=== PATIENT | male | born 1970 | race Caucasian/White ===

== ENCOUNTER 2024-08-22 07:58 | Outpatient (REF) | payer BC, SELFPAY ==
--- OUTSIDE RECORDS SUMMARY | 2024-08-22 08:03 | XMS_ITS | Clinical Summary ---
Author Organization [facility] Address [phone] [facility] [place] [address] Care Team Providers Care Forest Pathologist Name Role Phone Orin Joshi NP Primary Care Provider [phone] Allergies No known active allergies Medications Medication Sig Dispensed Refills Start Date End Date Status simvastatin (ZOCOR) 20 MG tablet Take 20 mg by mouth nightly. Active metformin HCl (METFORMIN ORAL) Take 500 tablets by mouth 2 (two) times a day. Active lisinopril (PRINIVIL,ZESTRIL) 10 MG tablet Take 10 mg by mouth daily. Active omega 7-yee-jmu-fish oil 1,000 mg (120 mg-180 mg) Cap Take 1 capsule by mouth daily. Active multivitamins Chew Take 1 tablet by mouth daily. Active metFORMIN (GLUCOPHAGE) 500 MG tablet Take 500 mg by mouth once. Active Social History Tobacco Use Types Packs/Day Years Used Date Smoking Tobacco: Never Smokeless Tobacco: Never Alcohol Use Standard Drinks/Week Comments Yes 0 (1 standard drink = 0.6 oz pur e alcohol) 5 daysa week Education Answer Date Recorded Are you interested in more education? Not on alexis e 11/17/2022 Are you concerned about learning? Not on file 11/17/2022 No 11/17/2022 No 11/17/2022 Digital Access Answer Date Recorded No 12/16/2022 No 12/16/2022 No 12/16/2022 Reliable internet access at home? Not on file 12/16/2022 Device with a working camera? Not on file Sex and Gender Information Value Date Recorded Sex Assigned at Not on file Gender Identity Not on file Sexual Orientation Not on file Last Filed Vital Signs Vital Sign Reading Time Taken Comments Blood Pressure 119/69 02/04/2018 2:00 PM EDT Pulse 81 02/04/2018 1:15 PM EDT Temperature 36.7 ??C (98.1 ??F) 02/04/2018 2:00 PM ED T Respiratory Rate 22 02/04/2018 1:15 PM EDT Oxygen Saturation 97% 02/04/2018 2:00 PM EDT Inhaled Oxygen Concentration - - Weight 83.9 kg (185 lb) 01/31/2018 10:30 AM EDT Height 172.7 cm (5' 8 ) 01/31/2018 10:30 AM EDT Body Mass Index 28.13 01/31/2018 10:30 AM EDT Plan of Treatment Health Maintenance Due Date Last Done Comments CREATININE LEVEL 1968 LIPID PANEL 1968 POTASSIUM LEVEL 1968 DEPRESSION SCREENING 1980 HEPATITIS B SCREENING 01/28/1986 HEPATITIS C SCREENING 01/28/1986 HIV ONE-TIME SCREENING (18-6 5 YEARS) 01/28/1986 HEPATITIS B VACCINES (1 of 3 - 19+ 3-dose series) 01/28/1987 SMOKING STATUS SCREENING (On ce After 26 Yrs) 01/28/1994 COLOGUARD 01/28/2013 COLONOSCOPY 01/28/2013 COLORECTAL CANCER SCREENING 01/28/2013 FIT TEST 01/28/2013 FOBT 01/28/2013 SIGMOIDOSCOPY 01/28/2013 VIRTUAL COLONOSCOPY 01/28/2013 Adult Td,Tdap Booster 09/07/2016 09/07/2006 PNEUMOCOCCAL VACCINES (50+ years) (2 of 2 - PCV) 01/28/2018 06/09/2009 ZOSTER VACCINES (1 of 2) 01/28/2018 INFLUENZA VACCINE (#1) 2024 COVID-19 VACCINE (3 - 2023-2 5 season) 2024 11/11/2020, 10/21/2020 HEPATITIS A VACCINES Aged Out No long er eligible based on patient's age to complete this topic HIB VACCINES Aged Out No longer eligi ble based on patient's age to complete this topic MENINGOCOCCAL VACCINES (ACWY) Aged Out No longer eligible based on patient's age to complete this topic Medical Devices Not on file Care Teams Forest Pathologist Relationship Specialty Start Date End Date Orin Joshi NP [address] [place] [id number] PCP - General 11/26/20 Additional Source Comments The information contained in this document represents components of the legal health record. It is not the complete legal health record.[facility]
--- OUTSIDE RECORDS SUMMARY | 2024-08-22 08:03 | XMS_ITS | Data Portability ---
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 Assessment Encounter Date Assessment Date Assessment LastModified by Organization Details LastModified Time 11/10/2022 11/10/2022 After a discussion of treatment options, which included consideration of best practices and patient preferences, the following treatment plan and objectives were adopted: [email or web address] Not available 11/10/2022 09:03:20 05/10/2023 05/10/2023 After a discussion of treatment options, which included consideration of best practices and patient preferences, the following treatment plan and objectives were adopted: [email or web address] Not available 05/10/2023 20:52:03 11/13/2023 11/13/2023 After a discussion of treatment options, which included consideration of best practices and patient preferences, the following treatment plan and objectives were adopted: pkeough Not available 11/13/2023 10:04:23 05/15/2024 05/15/2024 After a discussion of treatment options, which included consideration of best practices and patient preferences, the following treatment plan and objectives were adopted: pkeough Not available 05/15/2024 08:58:06 Plan of Treatment Reminders Order Date Submit Date Provider Last Modified By Organization Details Last Modified Time Details Appointments LAB Follow-Up 2024 07:30A M [facility] Not available Not available Not available Wellness Visit 30 05/21/ 2025 09:15A M Aydee Clarke, 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 Surgeries None recorded. Imaging XR, ribs, unilatera l - eval for fractured ribs, s/p fall on stone wall on L side 2023 024 [facility] (Im[facility]), [address] , [place], [address], 11/02/2023 10:18:03 Medication Orders sildenafi l 50 mg tablet 2022 023 [email or web address] [id number], [address] [place], [address], 11/13/2023 09:54:42 ibuprofen 800 mg tablet 2023 024 [id number], [address] [place], [address], 11/02/2023 08:27:07 ibuprofen 800 mg tablet 2023 024 pkeough [id number], [address] [place], [address], 11/13/2023 10:26:24 lisinopri l 10 mg tablet 2023 024 [facility], [address] [place], [address], 11/13/2023 10:26:18 simvastat in 20 mg tablet 2023 [id number], [address] [place] [address], [address], 05/15/2024 08:59:23 metformin ER 500 mg tablet,ex tended release 24 hr 2023 024 [id number], [address] [place] [address], [address], 05/15/2024 08:59:23 lisinopri l 10 mg tablet 2023 [id number], [address] [place] [address], [address], 05/15/2024 08:59:22 Patient TargetsNo targets recorded. Patient Instructions Encounter Date Encounter Id Patient Instructions Last Modified By Organization Details Last Modified Time 11/10/2022 [id number] high cholesterol lifestyle changes [email or web address] Not available 11/10/2022 09:18:51 Well Visit 50 to 65: Care Instructions pkeough Not available 11/10/2022 09:18:50 11/13/2023 [id number] high blood pressure: care instructions pkeough Not available 11/13/2023 10:26:16 learning about high blood pressure pkeough Not available 11/13/2023 10:26:16 05/15/2024 [id number] high blood pressure: care instructions pkeough Not available 05/15/2024 08:59:20 learning about high blood pressure pkeough Not available 05/15/2024 08:59:20 Reason for Referral Pump Assembler Referral for Erosion of teeth per dentist as significant erosion of enamel Referring Physician: Aydee Clarke, Family Medicine, Encounter Date: 05/10/2023 Results Created Date Observation Date Name Description Value Unit Range Abnormal Flag Note LastModifiedBy Organization Detail LastModifiedTime 11/03/1911/02/2022 HGB A1C hemoglobin A1C 6.4 % 4.8-6. 0 high Goal: <7% in Patie nts with Diabe arabella An A1c betwe en 5.7-6 .4% is ident ified as pre-d iabet es and sugge sts risk for progr essio n to diabe arabella Two a1c value s of 6.5% or highe r is consi stent with a diagn osis of diabe arabella but may need furth er confi rmati on Not Available [address], [address], 11/02/2022 11:36:14 11/03/19 23 11/02/2022 HGB A1C estimated average glucose 137.0 mg/dL Not Available [address], [address], 11/02/2022 11:36:14 11/03/19 23 11/02/2022 BASIC METAB OLIC PANEL glucose 151 mg/dL 70-100 high Not Available [address], [address], 11/02/2022 15:34:56 11/03/19 23 11/02/2022 BASIC METAB OLIC PANEL BUN 17 mg/dL 7-18 Not Available [address], [address], 11/02/2022 15:34:56 11/03/19 23 11/02/2022 BASIC METAB OLIC PANEL creatinine 1.0 mg/dL 0.8-1. 3 Not Available [address], [address], 11/02/2022 15:34:56 11/03/19 23 11/02/2022 BASIC METAB OLIC PANEL B/C 17.0 ratio Not Available [address], [address], 11/02/2022 15:34:56 11/03/19 23 11/02/2022 BASIC METAB OLIC PANEL GFR >=60ML /MIN mL/mi n normal >=60m L/min - Viki l or midly reduc ed <60mL /min- Decre ased kidne y funct ion <15mL /min - Kidne y failu re [facility] calcu lates estim ated Glome rular Filtr ation Rate (eGFR ) using the Chron ic Kidne y Disea se Epide miolo gy Colla borat ion (CKD- EPI) Equat ion (Rayne r et. al 2020) as recom luis d by the Natio nal Kidne y Found ation . eGFR is based on age, serum creat inine , and sex. CKD-E PI does not calcu late eGFR by race, does not apply to child bakari (age <18 years ), and shoul d not be used in pregn babak. Not Available [address], [address], 11/02/2022 15:34:56 11/03/19 23 11/02/2022 BASIC METAB OLIC PANEL sodium 138 mmol/ L 136-14 5 Not Available [address], [address], 11/02/2022 15:34:56 11/03/19 23 11/02/2022 BASIC METAB OLIC PANEL potassium 4.3 mmol/ L 3.5-5. 1 Not Available [address], [address], 11/02/2022 15:34:56 11/03/19 23 11/02/2022 BASIC METAB OLIC PANEL chloride 102 mmol/ L 96-107 Not Available [address], [address], 11/02/2022 15:34:56 11/03/19 23 11/02/2022 BASIC METAB OLIC PANEL anion gap 9.2 5.0-15 .0 Not Available [address], [address], 11/02/2022 15:34:56 11/03/19 23 11/02/2022 BASIC METAB OLIC PANEL CO2 27 mmol/ L 21-32 Not Available [address], [address], 11/02/2022 15:34:56 11/03/19 23 11/02/2022 BASIC METAB OLIC PANEL calcium 8.9 mg/dL 8.5-10 .3 Not Available [address], [address], 11/02/2022 15:34:56 11/03/19 23 11/02/2022 LIPID PANEL cholesterol 143 mg/dL <200 mg/dl Sudhir able 200-2 39 mg/dl Borde rline High >240 mg/dl High Not Available [address], [address], 11/02/2022 15:34:57 11/03/19 23 11/02/2022 LIPID PANEL triglyceride s 317 mg/dL high <150 mg/dL Viki l 150-1 99 mg/dL Borde rline High 200-4 99 mg/dL High >500 mg/dL Very High Not Available [address], [address], 11/02/2022 15:34:57 11/03/19 23 11/02/2022 LIPID PANEL direct HDL 38 mg/dL <40 mg/dl - Major Risk for CHD >60 mg/dl - Negat berta Risk for CHD Not Available [address], [address], 11/02/2022 15:34:57 11/03/19 23 11/02/2022 DIREC T LDL direct LDL 46 mg/dL RISK CATEG ORY LDL GOAL _ CHD or CHD Risk Equiv alent s <100 mg/dl (10-y ear risk >20%) 2+ Risk Facto rs <130 mg/dl (10-y ear risk <= 20%) 0-1 Risk Facto r? <160 mg/dl ? Almos t all peopl e with 0-1 risk facto r have a 10 year risk <10%, thus 10 year risk asses ment in peopl e with 0-1 risk facto r is not necmeaghan maisha. Not Available [address], [address], 11/02/2022 16:48:05 05/03/2005/03/2023 HGB A1C hemoglobin A1C 7.1 % 4.8-6. 0 high Goal: <7% in Patie nts with Diabe arabella An A1c betwe en 5.7-6 .4% is ident ified as pre-d iabet es and sugge sts risk for progr essio n to diabe arabella Two a1c value s of 6.5% or highe r is consi stent with a diagn osis of diabe arabella but may need furth er confi rmati on Not Available [address], [address], 05/03/2023 12:05:19 05/03/2005/03/2023 HGB A1C estimated average glucose 157.1 mg/dL Not Available [address], [address], 05/03/2023 12:05:19 05/03/2005/03/2023 BASIC METAB OLIC PANEL glucose 173 mg/dL 70-100 high Not Available [address], [address], 05/03/2023 12:12:20 05/03/2005/03/2023 BASIC METAB OLIC PANEL BUN 17 mg/dL 7-18 Not Available [address], [address], 05/03/2023 12:12:20 05/03/2005/03/2023 BASIC METAB OLIC PANEL creatinine 1.0 mg/dL 0.8-1. 3 Not Available [address], [address], 05/03/2023 12:12:20 05/03/2005/03/2023 BASIC METAB OLIC PANEL B/C 17.0 ratio Not Available [address], [address], 05/03/2023 12:12:20 05/03/2005/03/2023 BASIC METAB OLIC PANEL GFR >=60ML /MIN mL/mi n normal >=60m L/min - Viki l or midly reduc ed <60mL /min- Decre ased kidne y funct ion <15mL /min - Kidne y failu re [facility] calcu lates estim ated Glome rular Filtr ation Rate (eGFR ) using the Chron ic Kidne y Disea se Epide miolo gy Colla borat ion (CKD- EPI) Equat ion (Inke r et. al 2020) as recom luis d by the Natio nal Kidne y Found ation . eGFR is based on age, serum creat inine , and sex. CKD-E PI does not calcu late eGFR by race, does not apply to child bakari (age <18 years ), and shoul d not be used in pregn babak. Not Available [address], [address], 05/03/2023 12:12:20 05/03/2005/03/2023 BASIC METAB OLIC PANEL sodium 138 mmol/ L 136-14 5 Not Available [address], [address], 05/03/2023 12:12:20 05/03/2005/03/2023 BASIC METAB OLIC PANEL potassium 4.2 mmol/ L 3.5-5. 1 Not Available [address], [address], 05/03/2023 12:12:20 05/03/2005/03/2023 BASIC METAB OLIC PANEL chloride 102 mmol/ L 96-107 Not Available [address], [address], 05/03/2023 12:12:20 05/03/2005/03/2023 BASIC METAB OLIC PANEL anion gap 11.9 5.0-15 .0 Not Available [address], [address], 05/03/2023 12:12:20 05/03/2005/03/2023 BASIC METAB OLIC PANEL CO2 24 mmol/ L 21-32 Not Available [address], [address], 05/03/2023 12:12:20 05/03/20 23 05/03/2023 BASIC METAB OLIC PANEL calcium 9.0 mg/dL 8.5-10 .3 Not Available [address], [address], 05/03/2023 12:12:20 05/03/2005/03/2023 LIPID PANEL cholesterol 148 mg/dL <200 mg/dl Sudhir able 200-2 39 mg/dl Borde rline High >240 mg/dl High Not Available [address], [address], 05/03/2023 12:12:21 05/03/2005/03/2023 LIPID PANEL triglyceride s 323 mg/dL high <150 mg/dL Viki l 150-1 99 mg/dL Borde rline High 200-4 99 mg/dL High >500 mg/dL Very High Not Available [address], [address], 05/03/2023 12:12:21 05/03/2005/03/2023 LIPID PANEL direct HDL 42 mg/dL <40 mg/dl - Major Risk for CHD >60 mg/dl - Negat berta Risk for CHD Not Available [address], [address], 05/03/2023 12:12:21 05/03/20 23 05/03/2023 DIREC T LDL direct LDL 48 mg/dL RISK CATEG ORY LDL GOAL _ CHD or CHD Risk Equiv alent s <100 mg/dl (10-y ear risk >20%) 2+ Risk Facto rs <130 mg/dl (10-y ear risk <= 20%) 0-1 Risk Facto r? <160 mg/dl ? Almos t all peopl e with 0-1 risk facto r have a 10 year risk <10%, thus 10 year risk asses ment in peopl e with 0-1 risk facto r is not terrimeaghan ferrera. Not Available [address], [address], 05/03/2023 14:38:05 05/03/20 23 05/03/2023 MICRO ALBUM IN/CR EATIN INE RATIO PANEL , URINE microalbumin 8.0 mg/L 1.3-20 .0 Not Available [address], [address], 05/03/2023 15:48:25 05/03/20 23 05/03/2023 MICRO ALBUM IN/CR EATIN INE RATIO PANEL , URINE creatinine urine 139.3 mg/dL 30.0-1 25.0 high Not Available [address], [address], 05/03/2023 15:48:25 05/03/20 23 05/03/2023 MICRO ALBUM IN/CR EATIN INE RATIO PANEL , URINE microalb/cre at ratio 5.7 mg/g_ creat 0.0-29 .0 Not Available [address], [address], 05/03/2023 15:48:25 08/09/19 24 08/09/2023 BASIC METAB OLIC PANEL glucose 168 mg/dL 70-100 high Not Available [address], [address], 08/09/2023 10:55:05 08/09/19 24 08/09/2023 BASIC METAB OLIC PANEL BUN 17 mg/dL 7-18 Not Available [address], [address], 08/09/2023 10:55:05 08/09/19 24 08/09/2023 BASIC METAB OLIC PANEL creatinine 1.1 mg/dL 0.8-1. 3 Not Available [address], [address], 08/09/2023 10:55:05 08/09/19 24 08/09/2023 BASIC METAB OLIC PANEL B/C 15.5 ratio Not Available [address], [address], 08/09/2023 10:55:05 08/09/19 24 08/09/2023 BASIC METAB OLIC PANEL GFR >=60ML /MIN mL/mi n normal >=60m L/min - Viki l or midly reduc ed <60mL /min- Decre ased kidne y funct ion <15mL /min - Kidne y failu re [facility] calcu lates estim ated Glome rular Filtr ation Rate (eGFR ) using the Chron ic Kidne y Disea se Epide miolo gy Colla borat ion (CKD- EPI) Equat ion (Rayne r et. al 2020) as recom luis d by the Natio nal Kidne y Found ation . eGFR is based on age, serum creat inine , and sex. CKD-E PI does not calcu late eGFR by race, does not apply to child bakari (age <18 years ), and shoul d not be used in pregn babak. Not Available [address], [address], 08/09/2023 10:55:05 08/09/19 24 08/09/2023 BASIC METAB OLIC PANEL sodium 139 mmol/ L 136-14 5 Not Available [address], [address], 08/09/2023 10:55:05 08/09/19 24 08/09/2023 BASIC METAB OLIC PANEL potassium 4.3 mmol/ L 3.5-5. 1 Not Available [address], [address], 08/09/2023 10:55:05 08/09/19 24 08/09/2023 BASIC METAB OLIC PANEL chloride 102 mmol/ L 96-107 Not Available [address], [address], 08/09/2023 10:55:05 08/09/19 24 08/09/2023 BASIC METAB OLIC PANEL anion gap 10.8 5.0-15 .0 Not Available [address], [address], 08/09/2023 10:55:05 08/09/19 24 08/09/2023 BASIC METAB OLIC PANEL CO2 26 mmol/ L 21-32 Not Available [address], [address], 08/09/2023 10:55:05 08/09/19 24 08/09/2023 BASIC METAB OLIC PANEL calcium 8.9 mg/dL 8.5-10 .3 Not Available [address], [address], 08/09/2023 10:55:05 08/09/19 24 08/09/2023 HGB A1C hemoglobin A1C 7.1 % 4.8-6. 0 high Goal: <7% in Patie nts with Diabe arabella An A1c betwe en 5.7-6 .4% is ident ified as pre-d iabet es and sugge sts risk for progr essio n to diabe arabella Two a1c value s of 6.5% or highe r is consi stent with a diagn osis of diabe arabella but may need furth er confi rmati on Not Available [address], [address], 08/09/2023 10:57:32 08/09/19 24 08/09/2023 HGB A1C estimated average glucose 157.1 mg/dL Not Available [address], [address], 08/09/2023 10:57:32 10/25/19 24 10/25/2023 HGB A1C hemoglobin A1C 6.5 % 4.8-6. 0 high Goal: <7% in Patie nts with Diabe arabella An A1c betwe en 5.7-6 .4% is ident ified as pre-d iabet es and sugge sts risk for progr essio n to diabe arabella Two a1c value s of 6.5% or highe r is consi stent with a diagn osis of diabe arabella but may need furth er confi rmati on Not Available [address], [address], 10/25/2023 11:15:39 10/25/19 24 10/25/2023 HGB A1C estimated average glucose 139.9 mg/dL Not Available [address], [address], 10/25/2023 11:15:39 10/25/19 24 10/25/2023 BASIC METAB OLIC PANEL glucose 149 mg/dL 70-100 high Not Available [address], [address], 10/25/2023 16:27:42 10/25/19 24 10/25/2023 BASIC METAB OLIC PANEL BUN 21 mg/dL 7-18 high Not Available [address], [address], 10/25/2023 16:27:42 10/25/19 24 10/25/2023 BASIC METAB OLIC PANEL creatinine 1.0 mg/dL 0.8-1. 3 Not Available [address], [address], 10/25/2023 16:27:42 10/25/19 24 10/25/2023 BASIC METAB OLIC PANEL B/C 21.0 ratio Not Available [address], [address], 10/25/2023 16:27:42 10/25/19 24 10/25/2023 BASIC METAB OLIC PANEL GFR >=60ML /MIN mL/mi n normal >=60m L/min - Viki l or midly reduc ed <60mL /min- Decre ased kidne y funct ion <15mL /min - Kidne y failu re [facility] calcu lates estim ated Glome rular Filtr ation Rate (eGFR ) using the Chron ic Kidne y Disea se Epide miolo gy Colla borat ion (CKD- EPI) Equat ion (Rayne r et. al 2020) as recom luis d by the Natio nal Kidne y Found ation . eGFR is based on age, serum creat inine , and sex. CKD-E PI does not calcu late eGFR by race, does not apply to child bakari (age <18 years ), and shoul d not be used in pregn babak. Not Available [address], [address], 10/25/2023 16:27:42 10/25/19 24 10/25/2023 BASIC METAB OLIC PANEL sodium 139 mmol/ L 136-14 5 Not Available [address], [address], 10/25/2023 16:27:42 10/25/19 24 10/25/2023 BASIC METAB OLIC PANEL potassium 4.4 mmol/ L 3.5-5. 1 Not Available [address], [address], 10/25/2023 16:27:42 10/25/19 24 10/25/2023 BASIC METAB OLIC PANEL chloride 101 mmol/ L 96-107 Not Available [address], [address], 10/25/2023 16:27:42 10/25/19 24 10/25/2023 BASIC METAB OLIC PANEL anion gap 12.9 5.0-15 .0 Not Available [address], [address], 10/25/2023 16:27:42 10/25/19 24 10/25/2023 BASIC METAB OLIC PANEL CO2 25 mmol/ L 21-32 Not Available [address], [address], 10/25/2023 16:27:42 10/25/19 24 10/25/2023 BASIC METAB OLIC PANEL calcium 9.1 mg/dL 8.5-10 .3 Not Available [address], [address], 10/25/2023 16:27:42 10/25/19 24 10/25/2023 LIPID PANEL cholesterol 113 mg/dL <200 mg/dl Sudhir able 200-2 39 mg/dl Borde rline High >240 mg/dl High Not Available [address], [address], 10/25/2023 16:27:43 10/25/19 24 10/25/2023 LIPID PANEL triglyceride s 205 mg/dL <150 mg/dL Viki l 150-1 99 mg/dL Borde rline High 200-4 99 mg/dL High >500 mg/dL Very High Not Available [address], [address], 10/25/2023 16:27:43 10/25/19 24 10/25/2023 LIPID PANEL direct HDL 42 mg/dL <40 mg/dl - Major Risk for CHD >60 mg/dl - Negat berta Risk for CHD Not Available [address], [address], 10/25/2023 16:27:43 10/25/19 24 10/25/2023 LDL - CALCU LATED LDL - calculated 30.0 RISK CATEG ORY LDL GOAL _ CHD or CHD Risk Equiv alent s <100 mg/dl (10-y ear risk >20%) 2+ Risk Facto rs <130 mg/dl (10-y ear risk <= 20%) 0-1 Risk Facto r? <160 mg/dl ? Almos t all peopl e with 0-1 risk facto r have a 10 year risk <10%, thus 10 year risk asses ment in peopl e with 0-1 risk facto r is not jose reddingy. Not Available [address], [address], 10/25/2023 16:27:44 10/25/19 24 10/26/2023 IMMUN OGLOB ULIN A immunoglobul in A 125 mg/dL 47-310 normal Not Available [facility] [address], [address], 10/26/2023 16:02:40 10/25/19 24 10/26/2023 TISSU E TRANS GLUTA SANDRINE E AB, IGA tissue transglutami nase Ab, IgA <1.0 U/mL normal Value Inter preta tion ----- ----- ----- ---- <15.0 Antib tobias not detec audelia > or = 15.0 Antib tobias detec audelia Not Available [facility] [address], [place], [address], 10/26/2023 16:02:41 01/02/20 24 01/02/2024 POC GLU POC glu 179 70 - 100 high Not Available [facility] [address] [place] [address], [address], 01/04/2024 09:10:15 05/08/20 24 05/08/2024 HGB A1C hemoglobin A1C 6.9 % 4.8-6. 0 high Goal: <7% in Patie nts with Diabe arabella An A1c betwe en 5.7-6 .4% is ident ified as pre-d iabet es and sugge sts risk for progr essio n to diabe arabella Two a1c value s of 6.5% or highe r is consi stent with a diagn osis of diabe arabella but may need furth er confi rmati on Not Available [address], [address], 05/08/2024 11:51:31 05/08/20 24 05/08/2024 HGB A1C estimated average glucose 151.3 mg/dL Not Available [address], [address], 05/08/2024 11:51:31 05/08/20 24 05/08/2024 MICRO ALBUM IN/CR EATIN INE RATIO PANEL , URINE microalbumin 21.0 mg/L 1.3-20 .0 high Not Available [address], [address], 05/08/2024 14:38:50 05/08/2005/08/2024 MICRO ALBUM IN/CR EATIN INE RATIO PANEL , URINE creatinine urine 121.7 mg/dL 30.0-1 25.0 Not Available [address], [address], 05/08/2024 14:38:50 05/08/20 24 05/08/2024 MICRO ALBUM IN/CR EATIN INE RATIO PANEL , URINE microalb/cre at ratio 17.3 mg/g_ creat 0.0-29 .0 Not Available [address], [address], 05/08/2024 14:38:50 05/08/20 24 05/09/2024 BASIC METAB OLIC PANEL glucose 182 mg/dL 70-100 high Not Available [address], [address], 05/09/2024 15:14:00 05/08/20 24 05/09/2024 BASIC METAB OLIC PANEL BUN 15 mg/dL 7-18 Not Available [address], [address], 05/09/2024 15:14:00 05/08/20 24 05/09/2024 BASIC METAB OLIC PANEL creatinine 1.1 mg/dL 0.8-1. 3 Not Available [address], [address], 05/09/2024 15:14:00 05/08/2005/09/2024 BASIC METAB OLIC PANEL B/C 13.6 ratio Not Available [address], [address], 05/09/2024 15:14:00 05/08/2005/09/2024 BASIC METAB OLIC PANEL GFR >=60ML /MIN mL/mi n normal >=60m L/min - Viki l or midly reduc ed <60mL /min- Decre ased kidne y funct ion <15mL /min - Kidne y failu re [facility] calcu lates estim ated Glome rular Filtr ation Rate (eGFR ) using the Chron ic Kidne y Disea se Epide miolo gy Colla borat ion (CKD- EPI) Equat ion (Rayne r et. al 2020) as recom luis d by the Natio nal Kidne y Found ation . eGFR is based on age, serum creat inine , and sex. CKD-E PI does not calcu late eGFR by race, does not apply to child bakari (age <18 years ), and shoul d not be used in pregn babak. Not Available [address], [address], 05/09/2024 15:14:00 05/08/20 24 05/09/2024 BASIC METAB OLIC PANEL sodium 140 mmol/ L 136-14 5 Not Available [address], [address], 05/09/2024 15:14:00 05/08/20 24 05/09/2024 BASIC METAB OLIC PANEL potassium 4.9 mmol/ L 3.5-5. 1 Not Available [address], [address], 05/09/2024 15:14:00 05/08/20 24 05/09/2024 BASIC METAB OLIC PANEL chloride 101 mmol/ L 96-107 Not Available [address], [address], 05/09/2024 15:14:00 05/08/20 24 05/09/2024 BASIC METAB OLIC PANEL anion gap 9.0 5.0-15 .0 Not Available [address], [address], 05/09/2024 15:14:00 05/08/20 24 05/09/2024 BASIC METAB OLIC PANEL CO2 30 mmol/ L 21-32 Not Available [address], [address], 05/09/2024 15:14:00 05/08/20 24 05/09/2024 BASIC METAB OLIC PANEL calcium 9.5 mg/dL 8.5-10 .3 Not Available [address], [address], 05/09/2024 15:14:00 11/02/19 24 11/02/2023 XR, ribs, unila teral CLINIC AL HISTOR Y: Left-s ided chest wall pain after a fall. Histor y of old fractu res. TECHNI QUE: At least 3 views of the left ribs are obtain ed. 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 There are fractu re along the latera l aspect of the left sevent h, eighth and ninth ribs. There are fractu re of along the veneer slicing machine operator ior and beata latera l aspect s of the left 10th rib. There is a fractu re of the latera l aspect of the left 11th rib. The ninth, 10th and 11th rib fractu res appear to be new from 2020 though their age is diffic ult to ascert ain from the plain radiog raph due to superi mposed struct ures. There is no visibl e pneumo thorax or effusi on. IMPRES ANDRA: Kaz us old rib fractu res. Interv al develo pment of left ninth, 10th and 11th rib fractu res which are diffic ult to date with confid ence. Clinic al correl ation recomm ended. Vinh everett Physic ana: Heladio Ibrahim ms [facility] (Im[facility]) [address] , [place], [address], 11/13/2023 10:06:59 Result Notes None recorded. Problems Name Problem SNOMED Code Status Onset Date Resolution Date Notes Provider Name and Address Organization Details Recorded Time Benign essential hypertensi on 5745576 Active Not Available [facility] 2 09:32:40 Neuropathy due to diabetes mellitus 859265833 Active Not Available [facility] 2 09:[facility]:40 Alcohol dependence 45338229 Active 2015 Not Available [facility] 2 09:32:40 Amputated toe 342464698 Active 2018 Not Available [facility] 2 09:32:40 Obesity 599848683 Active 2021 Aydee Clarke NP [address] [place] [address], [id number] , [facility] 2 09:06:14 Basal cell carcinoma of skin 234641076 Active 2021 Bina Chopra NP [address] [place] [address], [phone] , [facility] 2 08:37:19 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 240742303 Active 2021 Aydee Clarke NP 18 [place] [address], [phone] , [facility] 10:05:16 Mixed hyperlipid emia [id number] Active 2006 Not Available [facility] 2 09:32:40 Injury of finger 34766045 Completed 200003/01/2012 Aydee Clarke NP [address] [place] [address], [phone] , [facility] 10:22:10 Testicular hypofuncti on 792156471 Completed 200603/01/2012 Aydee Clarke NP [address] [place], [address] , [facility] 10:22:10 Essential hypertensi on 08260575 Completed 200003/01/2012 Aydee Clarke NP [address] [place] [address], [phone] , [facility] 10:22:10 Diabetes mellitus 60394410 Completed 02/26/2014 Aydee Clarke NP [address] [place], [address] , [facility] 10:22:10 Type 2 diabetes mellitus without complicati on 600160668 Active 2006 Not Available [facility] 2 09:32:40 Insect bite to trunk - nonvenomou s 430113531 Completed 03/01/2012 Aydee Clarke NP [address] [place] [address], , [facility] 10:22:10 Benign essential hypertensi on 1159283 Completed 200603/01/2012 Aydee Clarke NP [address] [place] [address], [phone] , [facility] 10:22:10 Atrial fibrillati on 55983283 Completed 03/01/2012 Aydee Clarke NP [address] [place] [address], [phone] , [facility] 10:22:10 Morbid obesity 642441904 Completed 200603/01/2012 Aydee Clarke NP [address] [place] [address], [phone] , [facility] 10:22:10 Open angle with borderline findings Active 2006 Not Available [facility] 2 09:32:40 Disorder of peripheral autonomic nervous system 453520245 Completed 03/01/2012 Aydee Clarke NP [address] [place], [address] , [facility] 10:22:10 Disorder of nervous system due to type 2 diabetes mellitus 352134014 Completed 200603/01/2012 Aydee Clarke NP [address] [place] [address], [address] , [facility] 10:22:10 Malaise and fatigue 104823578 Completed 200603/01/2012 Aydee Clarke NP [address] [place] [address], [phone] , [facility] 10:22:10 Problem Notes None recorded. Procedures Surgical History Date Name Laterality Status Provider Name and Address Organization Details Recorded Time 2 Obesity counseling completed Aydee Clarke NP [address] [place] [address], [phone], [facility] 11/03/2021 09:05:56 2 prevention-card iovascular risk reduction counseling completed Aydee Clarke NP [address] [place] [address], [phone], [facility] 11/03/2021 09:05:36 1 Katiana - Colonoscopy completed Mynor Saab MD [address] [place] [address], [phone], [facility] 11/26/2020 07:46:53 1 prevention-card iovascular risk reduction counseling completed Esther Melendez [facility] 10/28/2020 07:54:46 1 prevention-vianey al alcohol misuse screening completed Esther Melendez [facility] 10/28/2020 07:54:46 0 prevention-card iovascular risk reduction counseling completed Esther Melendez [facility] 05/13/2020 10:57:32 0 prevention-vianey al alcohol misuse screening completed Esther Melendez [facility] 05/13/2020 10:57:32 5 Destruction of skin lesion completed Montana Foreman III, MD [address] [place] [address], [phone], [facility] 01/05/2015 10:59:27 Imaging Results Imaging Date Name Status LastModified by [facility] Details LastModified Time 11/02/2023 XR, ribs, unilateral completed [facility] (Imaging) [address], [place], [address], 11/13/2023 10:06:59 Procedure Notes None recorded. Medical Equipment None Reported. Allergies No known drug allergies Medications Name Sig Start Date Stop Date Status Note LastModified by Organization Details LastModified Time fish oil 1000mg capsule TAKE 2 CAPSULES BY MOUTH 2 TIMES A DAY DIRECTED 09/06 completed Not Available Not Available Not Available simvastat in 20 mg tabs 05/13 completed Not Available Not Available Not Available cyclobenz aprine hydrochlo ride 10 mg tabs 05/13 completed Not Available Not Available Not Available metformin hydrochlo ride er 500 mg tb24 05/13 completed Not Available Not Available Not Available lisinopri l 10 mg tabs 05/13 completed Not Available Not Available Not Available meloxicam 15 mg tabs 05/13 completed Not Available Not Available Not Available cyclobenz aprine 10 mg tablet TAKE ONE TABLET BY MOUTH THREE TIMES A DAY NEEDED FOR 14 DAYS 11/10 completed Not Available Not Available Not Available metformin 500 mg tablet TAKE 1 TABLET BY MOUTH EVERY MORNING AND TAKE 1 TABLET BY MOUTH EVERY EVENING active Not Available Not Available No t Available sildenafi l 50 mg tablet Take 1-2 tabs once daily as needed 1 hour before sexual activity ; may be taken up to 4 hours before sexual activity . 11/12 completed Not Available Not Available Not Available glyburide 5 mg tablet TAKE 1 TABLET BY MOUTH TWICE A DAY 02/09 completed pt as stopped taking this pa 02-09-17 KB Not Available Not Available Not Available ibuprofen 800 mg tablet Take 1 tablet 3 times a day by oral route. active Not Available Not Available No t Available glyburide 2.5 mg tablet Take 1 tablet every day by oral route. 2014 active Not Available Not Available Not Avai lable meloxicam 15 mg tablet TAKE 1 TABLET BY MOUTH EVERY DAY FOR 14 DAYS 10/28 completed Not Available Not Available Not Available FreeStyle Lancets 28 gauge USE TO TEST BLOOD SUGAR 2 TIMES A DAY DIRECTED active Not Available Not Available No t Available ceftriaxo ne 1 gram intraveno us solution 1 gm rocephin IM mixed with 1 % lidocain . 2014 active Not Available Not Available Not Avai lable sulfameth oxazole 800 mg-trimet hoprim 160 mg tablet TAKE 1 TABLET(S ) TWICE A DAY BY ORAL ROUTE DIRECTED FOR 5 DAYS. 01/30 completed Not Available Not Available Not Available aspirin 81 mg tablet,de layed release Take 1 tablet every day by oral route as directed . 2018 active Not Available Not Available Not Avai lable tramadol 50 mg tablet Take 1 tablet every 6 hours by oral route as needed. 01/09 completed Not Available Not Available Not Available ceftriaxo ne 1 gram solution for injection Injected 1.0 Gm mixed with 2.1mL of Lidocain e 1% into the LUOQ Buttock 2014 active Not Available Not Available Not Avai lable lancets Take 1 each twice a day by miscell. route. 11/12 completed Not Available Not Available Not Available cephalexi n 500 mg capsule Take 1 capsule 3 times a day by oral route as directed for 7 days. 10/27 completed Not Available Not Available Not Available simvastat in 20 mg tablet TAKE 1 TABLET BY MOUTH EVERY DAY IN THE EVENING active Not Available Not Available No t Available WelChol 625 mg tablet Take 1 tablet twice a day by oral route for 30 days. 2009 active Does not take Not Available Not Available Not Available Cipro 500 mg tablet Take 1 tablet every 12 hours by oral route for 7 days. 02/04 completed Not Available Not Available Not Available lisinopri l 10 mg tablet TAKE 1 TABLET BY MOUTH EVERY DAY active Not Available Not Available No t Available ibuprofen 400 mg tablet TAKE ONE TABLET BY MOUTH EVERY 4 TO 6 HOURS FOR 10 DAYS 11/10 completed Not Available Not Available Not Available mupirocin 2 % topical ointment active Not Available Not Available Not Available metformin ER 500 mg tablet,ex tended release 24 hr TAKE 2 TABLETS TWICE A DAY BY ORAL ROUTE DIRECTED FOR 90 DAYS. active Not Available Not Available No t Available amoxicill in 875 mg-potass ium clavulana te 125 mg tablet TAKE 1 TABLET BY MOUTH TWICE A DAY DIRECTED FOR 10 DAYS 05/15 completed Not Available Not Available Not Available Fish Oil active Not Available Not Avai lable Not Available multivita min active Not Available Not Available Not Available Fish Oil 300 mg-1,000 mg capsule TAKE 2 CAPSULES BY MOUTH 2 TIMES A DAY DIRECTED 09/06 completed Not Available Not Available Not Available Fish Oil 1,000 mg capsule Take 2 capsules twice a day by oral route as directed for 30 days. 10/10 completed Take 1:00 tab. q.d. Not Available Not Available Not Available FreeStyle Lite Meter kit USE TO CHECK BLOOD SUGAR 2 TIMES A DAY DIRECTED active Not Available Not Available No t Available FreeStyle Lite Strips USE TO TEST BLOOD SUGAR 2 TIMES PER DAY DIRECTED active Not Available Not Available No t Available Allergy Alllergy relief OTC. active Not Available Not Available No t Available Plenvu 140 gram-9 gram-5.2 gram powder packs 11/10 completed Not Available Not Available Not Available BinaxNOW COVID-19 Ag Self Test kit USE DIRECTED 11/10 completed Not Available Not Available Not Available Vitals Date Recorded Body height Provider Name an d Address Organization Details Last Updated DateTime 11/10/2022 168.28 cm Adrián Worthington [facility] 11/10/2022 08:49:54 Date Recorded Heart rate Provider Name an d Address Organization Details Last Updated DateTime 11/10/2022 95 /min Adrián Worthington [facility] 11/10/2022 08:50:07 Date Recorded Oxygen saturation Oxygen saturation in Arterial blood by Pulse oximetry Provider Name and Address Organization Details Last Updated DateTime 11/10/2022 97 % 97 % Adrián Worthington [facility] 11/10/2022 08:50:19 Date Recorded Body mass index (BMI) Body weight Provider Name and Address Organization Details Last Updated DateTime 11/10/2022 30 kg/m2 47534.77 g Adrián Worthington [facility] 11/10/2022 08:50:25 Date Recorded Body height Provider Name an d Address Organization Details Last Updated DateTime 05/10/2023 168.28 cm Adrián Worthington [facility] 05/10/2023 09:23:45 Date Recorded Body mass index (BMI) Body weight Provider Name and Address Organization Details Last Updated DateTime 05/10/2023 30.4 kg/m2 89287.55 g Adrián Worthington [facility] 05/10/2023 09:23:49 Date Recorded Heart rate Provider Name an d Address Organization Details Last Updated DateTime 05/10/2023 81 /min Adrián Worthington [facility] 05/10/2023 09:28:53 Date Recorded Body height Provider Name an d Address Organization Details Last Updated DateTime 11/02/2023 168.28 cm Samantha Galindo [facility] 11/02/2023 08:09:54 Date Recorded Body mass index (BMI) Body weight Provider Name and Address Organization Details Last Updated DateTime 11/02/2023 31.8 kg/m2 31875.69 g Samantha Galindo [facility] 11/02/2023 08:11:54 Date Recorded Heart rate Provider Name an d Address Organization Details Last Updated DateTime 11/02/2023 105 /min Samantha Galindo [facility] 11/02/2023 08:15:25 Date Recorded Oxygen saturation Oxygen saturation in Arterial blood by Pulse oximetry Provider Name and Address Organization Details Last Updated DateTime 11/02/2023 99 % 99 % Samantha Galindo [facility] 11/02/2023 08:15:26 Date Recorded Body height Provider Name an d Address Organization Details Last Updated DateTime 11/13/2023 168.28 cm Adrián Worthington [facility] 11/13/2023 09:53:18 Date Recorded Body mass index (BMI) Body weight Provider Name and Address Organization Details Last Updated DateTime 11/13/2023 31.1 kg/m2 71348.92 g Adrián Worthington [facility] 11/13/2023 09:53:49 Date Recorded Oxygen saturation Oxygen saturation in Arterial blood by Pulse oximetry Provider Name and Address Organization Details Last Updated DateTime 11/13/2023 100 % 100 % Adrián Worthington [facility] 11/13/2023 09:55:11 Date Recorded Heart rate Provider Name an d Address Organization Details Last Updated DateTime 11/13/2023 88 /min PHUONG Paul MA [facility] 11/13/2023 09:55:14 Date Recorded Body height Provider Name an d Address Organization Details Last Updated DateTime 05/15/2024 168.28 cm PHUONG Paul MA [facility] 05/15/2024 08:22:37 Date Recorded Body mass index (BMI) Body weight Provider Name and Address Organization Details Last Updated DateTime 05/15/2024 30.1 kg/m2 87959.37 g PHUONG Paul [facility] 05/15/2024 08:22:42 Date Recorded Oxygen saturation Oxygen saturation in Arterial blood by Pulse oximetry Provider Name and Address Organization Details Last Updated DateTime 05/15/2024 97 % 97 % PHUONG Paul [facility] 05/15/2024 08:24:14 Date Recorded Heart rate Provider Name an d Address Organization Details Last Updated DateTime 05/15/2024 77 /min PHUONG Paul MA [facility] 05/15/2024 08:24:24 Date Recorded Systolic blood pressure Diastolic blood pressure Provider Name and Address Organization Details Last Updated DateTime 11/10/2022 116 mm[Hg] 84 mm[Hg] PHUONG Paul [facility] 11/10/2022 08:51:13 Date Recorded Systolic blood pressure Diastolic blood pressure Provider Name and Address Organization Details Last Updated DateTime 05/10/2023 114 mm[Hg] 73 mm[Hg] PHUONG Paul [facility] 05/10/2023 09:28:45 Date Recorded Systolic blood pressure Diastolic blood pressure Provider Name and Address Organization Details Last Updated DateTime 11/02/2023 150 mm[Hg] 82 mm[Hg] Samantha Galindo [facility] 11/02/2023 08:15:04 Date Recorded Systolic blood pressure Diastolic blood pressure Provider Name and Address Organization Details Last Updated DateTime 11/13/2023 125 mm[Hg] 84 mm[Hg] PHUONG Paul [facility] 11/13/2023 09:59:25 Date Recorded Systolic blood pressure Diastolic blood pressure Provider Name and Address Organization Details Last Updated DateTime 11/13/2023 133 mm[Hg] 74 mm[Hg] PHUONG Paul [facility] 11/13/2023 11:24:46 Date Recorded Systolic blood pressure Diastolic blood pressure Provider Name and Address Organization Details Last Updated DateTime 05/15/2024 104 mm[Hg] 62 mm[Hg] PHUONG Paul [facility] 05/15/2024 08:26:48 Social History Question Answer Notes LastModified by Organizat ion Details LastModified Time Tobacco Smoking Status Never Smoker checked kb 05-15-24 PHUONG Paul [facility] 05/15/2024 08:27:56 What Is Your Level Of Alcohol Consumption? Moderate 5 Days A Week- 4 Shot Glasses A Day Vodka -[email or web address]. [email or web address] Information not available 05/15/2024 Do You Wear A Helmet When Biking? Yes Information not available 06/24/2015 What Is Your Level Of Caffeine Consumption? None [email or web address] Information not available 05/13/2020 How Much Tobacco Do You Chew? None Information not available 12/31/2012 What Type Of Diet Are You Following? REGULAR [email or web address] Information not available 06/24/2015 Which Illicit Or Recreational Drugs Have You Used? No Denies IVDU Information not available 01/15/2018 Do You Or Have You Ever Used E-cigarettes Or Vape? Never Used Electronic Cigarettes 10/28/2019 TG [email or web address] Information not available 10/28/2019 Education 4 Year College [email or web address] Information not available 06/08/2011 What Is Your Occupation? [employer] Previously [employer] Information not available 12/01/2015 How Many Days In The Past Year Have You Had A Heavy Drinking Consumption (4+ Female, 5+ Male)? 0 Information not available 12/31/2012 Are There Any Guns Present In Your Home? No Information not available 06/24/2015 Live Alone Or With Others? With Others [email or web address] Information not available 06/08/2011 Does The Patient Have Difficulty Speaking [place] Citizen? No Information not available 02/24/2015 Does The Patient Have Difficulty Reading [place] Citizen? No Information not available 02/24/2015 Patient Has Health Care Proxy Signed And In Chart Yes [email or web address] Information not available 11/14/2022 Marital Status [email or web address] Informatio n not available 03/01/2012 Mosquito Repellent Used Routinely Yes Information not available 01/15/2018 What Was The Date Of Your Most Recent Tobacco Screening? 05/11/2022 05/11/22 CJ [email or web address] Information not available 05/11/2022 How Many Children Do You Have? 0 [email or web address] Information not available 06/08/2011 Seat Belts Used Routinely Yes [email or web address] Information not available 06/24/2015 Smoke Alarm In Home Yes [email or web address] Information not available 06/24/2015 Do You Or Have You Ever Used Smokeless Tobacco? Never Used Smokeless Tobacco 10/28/2019 TG [email or web address] Information not available 10/28/2019 How Much Tobacco Do You Smoke? No 05/11/22 CJ [email or web address] Information not available 05/11/2022 What Types Of Sporting Activities Do You Participate In? No Information not available 01/15/2018 General Stress Level Low Information not available 06/24/2015 Do You Use Sunscreen Routinely? Yes [email or web address] Information not available 06/24/2015 How Many Years Have You Smoked Tobacco? 0 Information not available 10/28/2019 Sex: Male Functional Status None recorded. Mental Status None recorded. Family History Relationship Description Onset Age of this Age Resolved Age Notes LastModified by Organization Details LastModified Time Father Alcoholism [email or web address] Not availabl e 12/01/2015 10:23:38 Brother Asthma 32 acute asthma attack [email or web address] Not available 12/01/2015 10:23:38 Brother Opioid dependence 32 OD in [place] @ [facility] pkeough Not available 12/01/2015 10:23:38 Notes:Father-ETOH abuse when fell and hit head Mother-live but pt not sure problems, 4 siblings (1 sis and 3 bros) does not know about their health, they have different father. Medical History Condition Response Diabetes Type II Y Hypertension Y Immunizations Vaccine Type Date Status Note Provider Name and Address Organization Details Recorded Time Tdap 007 completed Not Available [facility] 06/07/2011 05:21:29 Tdap 007 completed Not Available [facility] 06/07/2011 05:21:29 pneumococcal polysaccharide PPV23 009 completed Not Available [facility] 08/09/2019 02:38:00 Td (adult), 2 Lf tetanus toxoid, preservative free, adsorbed 018 completed Not Available [facility] 08/09/2019 02:22:36 Influenza, split virus, quadrivalent, PF 022 cancelled patient objection Carolina Yanez D.O. [address] [place], [address], [facility] 05/11/2022 11:18:26 Influenza, split virus, quadrivalent, PF 023 cancelled patient objection Nikole Pandya. [address] [place], [address], [facility] 05/13/2023 15:47:02 COVID-19, mRNA, LNP-S, PF, 30 mcg/0.3 mL dose 021 [facility] 14:14:02 COVID-19, mRNA, LNP-S, PF, 30 mcg/0.3 mL dose 021 completed BLAINE Vance, [facility] 06/03/2021 14:14:12 COVID-19, mRNA, LNP-S, PF, 100 mcg/0.5mL dose or 50 mcg/0.25mL dose 022 completed JUAN Alvarez, [facility] 08/22/2021 14:21:46 Past Encounters Encounter ID Performer Location Encounter Start Date Encounter Closed Date Diagnosis/Indication Diagnosis SNOMED-CT Code Diagnosis ICD10 Code Diagnosis Note [id number] [facility] [address] [place] [address] 08/28/2000 11:45:00 08/12/2008 02:02:29 [id number] [facility] OFFICE [address] [place] [address] 09/07/2006 09:25:16 09/07/2006 13:17:47 [id number] LAB - [facility] [address] [place] [address] 09/27/2006 09:47:41 09/27/2006 09:47:45 [id number] Eye Care, [facility] [place] [address] 09/27/2006 10:01:46 09/27/2006 11:52:26 [id number] Eye Care, [facility] [place] [address] 10/15/2006 14:29:42 10/15/2006 17:10:27 [id number] [facility] OFFICE [address] [place] [address] 10/17/2006 08:03:38 10/17/2006 09:08:25 [id number] [facility] [place] OFFICE [address] [place] [address] 01/09/2007 12:05:24 01/09/2007 14:30:41 [id number] [facility] [place] [address] 01/10/2007 07:28:27 01/10/2007 07:28:32 [id number] [facility] [address] [place] [address] 01/11/2007 08:57:27 01/11/2007 08:57:35 [id number] [facility] [place]ICE [address] [place] [address] 02/01/2007 08:12:35 02/01/2007 10:48:02 [id number] [facility] [address] [place] [address] 06/11/2007 07:56:03 06/11/2007 07:56:12 [id number] [facility] [place] [place]ICE [address] [place] [address] 06/25/2007 09:01:34 08/12/2008 02:02:29 [id number] Podiatry, [facility] [address] [place] [address] 07/09/2007 09:05:27 07/10/2007 09:23:03 [id number] [facility] [address] [place] [address] 11/19/2007 10:32:30 11/19/2007 10:32:45 [id number] [facility] OFFICE [address] [place] [address] 05/12/2009 10:30:12 05/13/2009 08:35:[id number] [address] [place] [id number] 06/09/2009 14:41:02 06/10/2009 09:44:59 [id number] Endocrino logy, [facility] [place] [address] 06/23/2009 08:26:26 06/24/2009 09:26:23 [id number] Endocrino logy, [address] [place] [address] 08/19/2009 09:27:35 08/19/2009 14:10:39 [id number] Endocrino logy, [address] [place] [address] 11/18/2009 09:29:15 11/18/2009 10:41:[id number] [facility] [address] [place] [id number] 09/20/2010 12:01:55 09/20/2010 16:23:[id number] [facility] [address] [place] [id number] 06/21/2011 09:53:16 06/21/2011 10:13:[id number] [address] [place] [id number] 01/23/2012 08:10:14 01/23/2012 09:04:[id number] [facility] [address] [place] [id number] 03/01/2012 08:33:47 03/01/2012 09:08:14 [id number] Dorina SEARS [address] [place] [id number] 12/31/2012 11:03:27 01/01/2013 07:35:53 [id number] Jessica Mastrobert i [facility] [address] [place] [id number] 05/19/2013 09:39:48 05/19/2013 09:56:44 Nonvenomous insect bite of multiple sites [id number] Ami SEARS [address] [place] [id number] 08/28/2013 15:02:43 08/28/2013 15:25:22 Benign essential hypertension 0872807 continue to work on diet ,exercisea nd lowering salt intake as discussed Mixed hyperlipidemia 042890887 continue to work on diet and exercise as discussed Adult heal th examination [id number] see Risk Assessment and Lifestyle Change Counseling section above Counseling [id number] Type 2 nora betes mellitus without complication 083345386 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 782857406 Disorder o f nervous system due to type 2 diabetes mellitus 571104774 [id number] Rosi Reyes , [facility] OFFICE [address] [place] [address] 02/26/2014 09:23:19 02/26/2014 09:55:23 Benign essential hypertension 3539065 continue to work on diet ,exercisea nd lowering salt intake as discussed Mixed hyperlipidemia 013344874 continue to work on diet and exercise as discussed Disorder o f nervous system due to type 2 diabetes mellitus 777656577 Foot neuropathy Neoplasm of skin 193784437 [id number] Montana Foreman III, MD , [facility], OFFICE [address] [place] [address] 01/05/2015 10:38:43 01/05/2015 10:57:32 Benign essential hypertension 1925813 continue to work on diet, exercise, and lowering salt intake as discussed Mixed hyperlipidemia 599241032 continue to work on diet and exercise as discussed Cholestero l is at goal Type 2 nora betes mellitus without complication 670559670 Actinic keratosis 816560571 Right shoulder x 2 [id number] JUAN Lewis [facility], OFFICE [address] [place] [address] 02/23/2015 09:02:42 02/23/2015 09:28:05 Paronychia of toe [id number] Diabetes mellitus 25174389 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 [id number] PABLO Sommers, [facility] [place] [address] [place] [address] 02/25/2015 09:28:28 02/25/2015 10:08:25 Paronychia of toe 913029959 Diabetes mellitus 36756593 Cellulitis of toe 52647887 [id number] JUAN Lewis, [facility] [place] [place] [address] [place] [address] 02/26/2015 09:13:35 02/26/2015 09:42:40 Cellulitis of toe 51649933 Paronychia of toe 942918650 Diabetes mellitus 03666334 [id number] Aydee Clarke NP , [facility] [place], OFFICE [address] [place] [address] 03/01/2015 09:16:53 03/01/2015 09:27:47 Cellulitis of toe 45798665 resolving will finish remaining 3 days of Bactrim DS bid. Again reviewed sxs of infection and will rto if they reoccur. [id number] PABLO Sommers, [facility] [place] OFF[place] [address] [place] [address] 06/24/2015 08:26:01 06/24/2015 09:06:08 Type 2 diabetes mellitus without complication 944501104 E11.9 A1C not at goal of <7.0 Up significan tly from December will increase metformin ER to 1000 mg bid will decrease ETOH, sugar drinks repeat labs 3 months- OV Mixed hyperlipidemia 267 820238 E78.2 Trigs are not at goal Will c/w omega fish oil 4000 mg qd will decrease ETOH and sugary drinks Continue to work on diet and exercise as discussed repeat labs 3 months and f/u OV Benign ess ential hypertension 5243378 I10 Blood pressure at goal . continue to work on diet, exercise, and lowering salt intake as discussed Adult heal th examination 081738643 Z00.00 see Risk Assessment and Lifestyle Change Counseling section above HM: Labs UTD Declines flu shot Counseling 299929445 Z71 .9 Alcohol dependence 02811 003 F10.20 discussed reducing ETOH intake discussed impact on blood sugar and triglyceri vi Shoulder pain 79429260 M 25.512 ? impingemen t will try 3-5 days of NSAIDs, alternate heat and ice will call if he reconsider PT Neuropathy due to diabetes mellitus 143887579 E11.40 stable discussed importance of checking feet regularly. [id number] Marcie SEARS, [facility] [place], OFFICE [address] [place] [address] 12/01/2015 09:44:27 12/01/2015 10:33:57 Type 2 diabetes mellitus without complication 181866735 E11.9 A1C at goal of <7.0 at 5.0 will c/w increase metformin 1000 mg bid c/w glyburide 2.5 mg qd discussed working on diet, ETOH reduction will repeat in 3 months to check for stability OV 6 months Mixed hyperlipidemia 267 036045 E78.2 Trigs much improved down from 699 to 158! great job Will c/w omega fish oil 4000 mg qd will decrease ETOH and sugary drinks Continue to work on diet and exercise as discussed repeat labs 3 months and f/u OV 6 months Benign ess ential hypertension 0751007 I10 Blood pressure at goal . 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 Adjustment disorder 1722 6007 F43.23 dealing with loss of 32 brother (OD) as well taking care of Mom [id number] MD RENU Barreto, [facility] [place], OFFICE [address] [place] [address] 01/25/2016 09:18:19 01/25/2016 10:06:23 Infection of toe 743095408 L08.9 in diabetic with neuropathy i informed him that this was a serious infection for him and that we must be observant augmentin for 12 days.he will rto for non response after 48 hrs, or for progressio n or onset fever Neuropathy due to diabetes mellitus 893627392 E11.40 [id number] Aydee Clarke NP , [facility] [place] OFFICE [address] [place] [address] 06/28/2016 09:35:15 06/29/2016 09:39:46 Benign essential hypertension 2716116 I10 BP at goalc/w meds Neuropathy due to diabetes mellitus 674545674 E11.40 abn but stable discussed importance of checking feet regularly. Mixed hyperlipidemia 267 183918 E78.2 Trigs up from 158 to 388will c/w fish oildiscuss ed importance of ETOH reduction Type 2 nora betes mellitus without complication 706003091 E11.9 A1C very good at 5.7will get meter d/t ? of low blood sugarsIf getting lows discussed potentiall y reducing glyburideR F on med today Adult heal th examination 839477577 Z00.00 see Risk Assessment and Lifestyle Change Counseling section aboveHM: declines flu shot Counseling 839290909 Z71 .9 Alcohol dependence 15142 003 F10.20 discussed reducing ETOH intake- has not reduced discussed impact on blood sugar and triglyceri vi lhoping new job (no longer at [employer]) will help reduce [id number] Bina Chopra NP , [facility] [place] OFFICE [address] [place] [address] 10/10/2016 08:00:49 10/12/2016 15:46:30 Injury of ribs 732893779 S29.9XXA Alcohol dependence 64029 003 F10.20 Type 2 nora betes mellitus without complication 247653929 E11.9 [id number] Aydee Clarke NP , [facility] [place] OFFICE [address] [place] [address] 01/09/2017 07:57:33 01/10/2017 09:04:13 Benign essential hypertension 7705460 I10 Blood pressure at goal of <140/90c/w lisinopril BMP utd wnl Mixed hyperlipidemia 267 503752 E78.2 LDL at goal of <100c/w simvastati ncontinue to work on diet and exercise as discussed Type 2 nora betes mellitus without complication 345029887 E11.9 A1C 5.0 with Goal <6.5doing well with more activity d/t jobno med changesmay consider reducing if c/w low A1Crto 6 months for PHA Neuropathy due to diabetes mellitus 820098570 E11.40 abn but stable discussed importance of checking feet regularly. 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 to d/c glyburide and CUT DOWN metformin to 1000 mg once dailywill recheck HbA1c in Jun [id number] Lety SEARS, [facility] [place], [place]ICE [address] [place] [address] 01/15/2018 10:28:34 01/15/2018 11:35:54 Type 2 diabetes mellitus without complication 392043150 E11.9 A1C 5.9 with Goal <6.5doing well with more activity d/t jobno med changesmay consider reducing if c/w low A1Crto 6 months for PHA Alcohol dependence 87869 003 F10.20 stable with slight decrease per pt3-4 drinks 5 x week Benign ess ential hypertension 7558391 I10 Blood pressure at goal of <140/90c/w lisinopril BMP utd wnl Neuropathy due to diabetes mellitus 591483232 E11.40 abn but stable discussed importance of checking feet regularly. Mixed hyperlipidemia 267 786603 E78.2 LDL at goal of <100c/w simvastati ncontinue to work on diet and exercise as discussed Active or passive immunization 930808148 Z23 Diabetic foot ulcer 3710 26125 E11.40 R foot 2nd toe with cellulitis will get xrayget bactrim DS bid x [address] Wang for wound care. [id number] Mitesh Cheng DPM Podiatry, [facility] [address] [facility] [place] [address] 01/30/2018 11:02:26 01/30/2018 14:26:05 Acute osteomyelitis of phalanx of toe 946385664 M86.179 Reviewed right foot xray notable for erosions of distal aspect of distal phalanx. Pt with sausage toe which clinically indicates presence of OM. Reviewed need for partial amputation of right 2nd toe. Reviewed procedure and goal being to remove the infected bone. Informed patient that his toe will be shortened. Will send bone specimen to pathology and micro. Rx for augmentin sent to pharmacy for 10 day course. Will add to sx schedule on Sunday. Pt will be out of work for up to 2 weeks. Informed patient that he will be able to walk in surgical shoes post op day 0. Pain in toe 972400613 M7 9.674 Ulcer of toe 251859040 L 97.999 [id number] Carolina SEARS, [facility] [place] [place]ICE [address] [place] [address] 01/30/2018 15:50:18 01/30/2018 18:24:23 Pre-surgery evaluation 410447920 Z01.818 ekg wnlThe patient is a low risk for perioperat berta cardiovasc ular complicati ons, and may proceed with surgery. Acute oste omyelitis of phalanx of toe 978624163 M86.179 R 2nd toe Benign ess ential hypertension 1083166 I10 Blood pressure at goal of <140/90c/w lisinopril BMP utd wnl Alcohol dependence 89355 003 F10.20 stable with slight decrease per pt3-4 drinks 5 x week [id number] Mitesh Cheng DPM Podiatry, [address] [address] 02/12/2018 10:26:41 02/12/2018 11:12:01 Acute osteomyelitis of phalanx of toe 769286985 M86.179 Reviewed right foot xray notable for erosions of distal aspect of distal phalanx s/p partial amputation of toe. Rx for augmentin sent to pharmacy for 10 day course. Dressing changed. Pain in toe 420232876 M7 9.674 will remove sutures in 1 week. [id number] Mitesh Cheng DPM Podiatry, [address] [address] 02/19/2018 08:51:40 02/19/2018 09:26:45 Acute osteomyelitis of phalanx of toe 441311401 M86.179 Reviewed right foot xray notable for erosions of distal aspect of distal phalanx s/p partial amputation of toe. Pain in toe 724112369 M7 9.674 Sutures removed today. Scab overlying incision removed and site bleeding area identified . Area was cleansed then new dressing was applied to the toe. Pt instructed to take abx to completion . Also to keep toe covered with gauze after daily dressing changes until area is healed up. RTC 2 weeks to re-eval. Ok to return to work tomorrow. [id number] Mitesh Cheng DPM Podiatry, [address] [address] 03/05/2018 08:38:01 03/07/2018 14:19:36 Acute osteomyelitis of phalanx of toe 634806696 M86.179 Reviewed right foot xray notable for erosions of distal aspect of distal phalanx s/p partial amputation of toe. Resolved, patient with clean margins. Pain in toe 074208483 M7 9.674 Right 2nd toe wound all healed up now. Pt ok to get toe wet. Counceled on need for diabetic shoes with custom insoles, as he will need wide width and extra depth shoe to accomodate toe deformitie s. RTC 3 months to re-eval. [id number] Mitesh Cheng DPM Podiatry, [address] [address] 05/07/2018 09:13:31 05/07/2018 09:50:36 Pain in toe 668494447 M79.674 Counseled on need for diabetic shoes with custom insoles, as he will need wide width and extra depth shoe to accomodate toe deformitie s. Orthotics agreement form was completed and signed today. Pt given a copy. We will check with her insurance about coverage. Patient is aware of cost. Cellulitis of toe 877284 04 L03.031 Ulcer of toe 038901989 L 97.509 Verbal consent was obtained. Right 4th toe prepped and sterile instrument ation used to unroof blister draining serous drainage. Wound was dressed wtih betadine and dsd. Pt was given instructio ns to dress it accordingl y each day. Rx for abx sent to pharmacy. RTC 2 weeks. Not to get foot wet. I spent 25 mins face to face with patient, more 50% spent in counseling and coordinati on of care. [id number] Mitesh Cheng DPM Podiatry, [address] [address] 05/21/2018 08:45:10 05/21/2018 16:20:21 Pain in toe 932936318 M79.674 Counseled on need for diabetic shoes with custom insoles, as he will need wide width and extra depth shoe to accomodate toe deformitie s. Orthotic casting done today using the scanner. With the patient in supine position with patella facing superior. Each foot was placed in subtalar neutral, ensuring that equal pressure is applied on the plantar aspect of the foot. The image was saved after each scan. The process was repeated for other foot. The scanned images were then sent to [facility] for quita rodriguez Specificat ions: full length, 45 jeff, flexible, cute wide, toe filler for right 2nd toe amputation .I spent 15 mins face to face with patient, more 50% spent in counseling and coordinati on of care. Cellulitis of toe 756981 04 L03.031 resolved Ulcer of toe 666082655 L 97.509 Verbal consent was obtained. Right 4th toe prepped and sterile instrument ation used to unroof blister draining serous drainage. Wound was dressed wtih betadine and dsd. Pt was given instructio ns to dress it accordingl y each day. Rx for abx sent to pharmacy. RTC 2 weeks. Not to get foot wet. I spent 25 mins face to face with patient, more 50% spent in counseling and coordinati on of care. [id number] Mitesh Cheng DPM Podiatry, [address] [address] 07/09/2018 09:09:03 07/10/2018 08:20:30 Pain in toe 096854449 M79.674 Pt was informed that breaking into fulltime wear of custom made functional foot orthotic devices should occur over a period of 10 to 14 days. On the day of shrimp picker the orthotic devices, wear them for 1 hour if tolerated. This hour should only include active walking or standing. Therefore, 1 hour of orthotic wear may actually occur over 2 to 6 hours in real time. If even 1 hour is difficult, attempt (2) 30 minute sessions, or (4) 15 minute sessions, with an hour off between the sessions. Pt was informed that he should gradually increase his 1 hour increments each day, until he able to wear for a full day. Pt was told that if he experience s discomfort anywhere (foot, ankle, knee, hip or back) while breaking in the device, immediatel y remove the device, and leave it out of your shoe for the next 2 hours. If there is still time later in the day, you can try to re-wear them if you have not met your time allotment. Orthotic length was then cut to fit patients foot length leaving an additional 1 cm from the longest toe. Pt was able to tolerate the device and demonstrat ed understand ing of what was explained to him. I spent 15 mins face to face with patient, more 50% spent in counseling and coordinati on of care. Cellulitis of toe 016627 04 L03.031 resolved Ulcer of toe 257182612 L 97.509 Verbal consent was obtained. Right 4th toe prepped and sterile instrument ation used to unroof blister draining serous drainage. Wound was dressed wtih betadine and dsd. Pt was given instructio ns to dress it accordingl y each day. Rx for abx sent to pharmacy. RTC 2 weeks. Not to get foot wet. [id number] Aydee Clarke NP , [facility] [place] [place]ICE [address] [place] [address] 09/06/2018 14:25:20 09/06/2018 15:02:23 Adult health examination 453016337 Z00.00 see Risk Assessment and Lifestyle Change Counseling section aboveHM: labs utdcolonos copy due Counseling 388102809 Z71 .9 Depression screening 171 242176 Z13.89 1 out of 27depressi on screening tool administer ed, entered into emr, scored and discussed, time greater than 7.5 minutes Mixed hyperlipidemia 267 585162 E78.2 LDL at goal of <100c/w simvastati ncontinue to work on diet and exercise as discussed Benign ess ential hypertension 8930412 I10 BP at goal c/w lisinopril continue to work on diet, exercise, and lowering salt intake as discussed Type 2 nora betes mellitus without complication 590692585 E11.9 A1C 5.7 with Goal <6.5still high fasting bs at 157advised to reduce ETOH particular ly shots doing well with more activity d/t jobno med changesmay consider reducing if c/w low A1Crto 6 months for PHA Alcohol dependence 28889 003 F10.20 3-4 everyday after workis doing shotsadvis ed to reduce- pt agrees Neuropathy due to diabetes mellitus 872455336 E11.40 abn but stable discussed importance of checking feet regularly. Screening for malignant neoplasm of colon 107301907 Z12.11 Referral for a DIRECT booked colonoscop y. This patient is a healthy ASA Class 1 or 2 patient (only mild systemic disease), or a STABLE, well controlled insulin dependent diabetic. They do not have serious cardiac disease ie AR/angiopl asty within 1 year, symptomati c CHF; renal failure with CKD 4 or 5; take Coumadin, Plavix, Aggrenox, etc. Amputated toe 872416354 Z89.429 R 2nd toecheck feet daily [id number] Aydee Clarke NP , [facility] [place], OFFICE [address] [place], [place] [address] 03/10/2019 15:51:01 03/10/2019 16:23:56 Mixed hyperlipidemia 265555423 E78.2 LDL at goal of <100c/w simvastati ncontinue to work on diet and exercise as discussed Screening for malignant neoplasm of colon 667268735 Z12.11 Referral for a DIRECT booked colonoscop y. This patient is a healthy ASA Class 1 or 2 patient (only mild systemic disease), or a STABLE, well controlled insulin dependent diabetic. They do not have serious cardiac disease ie AR/angiopl asty within 1 year, symptomati c CHF; renal failure with CKD 4 or 5; take Coumadin, Plavix, Aggrenox, etc. Neuropathy due to diabetes mellitus 720246932 E11.40 abn but stable discussed importance of checking feet regularly. no open toe shoesneed to protect feet Amputated toe 641308069 Z89.429 R 2nd toecheck feet daily Benign ess ential hypertension 2240670 I10 BP at goal c/w lisinopril continue to work on diet, exercise, and lowering salt intake as discussed Disorder o f nervous system due to type 2 diabetes mellitus 358498110 E11.49 DM is [id number] 5.8 which is great- at goaldiscus sed importance of foot carealread y had 1 amputation injury to L great toe- no open toe shoes Obesity 235119063 E66.9 BMI 30.5c/w low fat, low carb diet c/w regular activity Injury of toe 071262874 S99.922A likely paronychia of L great toeInterdi git is red, swollen with some warmthno painhx of osteomyeli tis with amputation xray todaystart keflex 500 mg tid x 7 days. Cramp in l ower limb associated with sleep 4385448913 37202 G47.62 advised increasing potassium with banana, sweet potatoeske ep hydrated with electrolyt estry diet tonic prior to bed [id number] Nikole Pandya . MD SEARS, [facility] [place] OFFICE [address] [place] [address] 10/28/2019 08:30:56 10/28/2019 15:14:19 Low back pain 592489818 M54.5 Low back strain, no alarming symptoms. Will treat with ice, muscle relaxers and NSAIDs. Do not take ibuprofen with meloxicam. Call us with any new neurologic symptoms. 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 [id number] PABLO Sommers, [facility] [place] [place]ICE [address] [place] [address] 05/13/2020 10:57:05 05/14/2020 11:47:45 Adult health examination 986504472 Z00.00 see Risk Assessment and Lifestyle Change Counseling section aboveHM: labs utdcolonos copy due Counseling 928142885 Z71 .9 including cardiovasc ular risk reduction counseling Depression screening 171 356095 Z13.89 0 out of 27 phq 9mood is gooddepres andra screening tool administer ed, entered into emr, scored and discussed, time greater than 7.5 minutes Screening for alcohol abuse 701887696 Z13.39 + auditwill work on decreasein g Amputated toe 985498664 Z89.429 R 2nd toecheck feet daily Type 2 nora betes mellitus without complication 960774080 E11.9 A1C 6.3 up from 5.8 but at Goal <6.5advise d to reduce ETOH particular ly shots doing well with more activity d/t jobno med changesrto 6 months for MM Alcohol dependence 99131 003 F10.20 Audit 43-4 everyday after work - drinking more with covid and less to do at nightis doing shotsadvis ed to reduce- pt agrees Mixed hyperlipidemia 267 781848 E78.2 Cholestero l is at goal LDL is 46Trigs are high at 281- will work on diet and less etoh Continue to work on diet and exercise as discussed Essential hypertension 96872080 I10 cannot check bpwill have him come in for bp checkif not at goal of < 130/80 will increase lisinopril to 20 mg [id number] Aydee Clarke NP , [facility] [place] OFFICE [address] [place] [address] 05/27/2020 09:04:01 05/28/2020 15:26:35 [id number] Carolina Yanez D.O. , [facility] [place] OFFICE [address] [place] [address] 10/28/2020 07:51:21 11/19/2020 16:22:56 Essential hypertension 18423720 I10 cannot check bpwill have him come in for bp checkif not at goal of < 130/80 will increase lisinopril to 20 mg Adult heal th examination 426552937 Z00.00 see Risk Assessment and Lifestyle Change Counseling section above HM: labs utd colonoscop y due Counseling 132779708 Z71 .9 including cardiovasc ular risk reduction counseling Screening for alcohol abuse 409561269 Z13.39 + auditwill work on decreasein g Mixed hyperlipidemia 267 429002 E78.2 Cholestero l is at goal LDL is 50 Trigs are high at 472- will work on diet and less etoh Continue to work on diet and exercise as discussed Amputated toe 951403163 Z89.429 R 2nd toecheck feet daily Type 2 nora betes mellitus without complication 690991595 E11.9 A1C 6.1 at Goal <6.5 advised to reduce ETOH doing well with more activity d/t job no med changes rto 6 months for MM Alcohol dependence 45039 003 F10.20 Audit 7 more with pandemic 3-4 everyday after work - drinking more with covid and less to do at night is doing shots advised to reduce- pt agrees Neuropathy due to diabetes mellitus 853616822 E11.40 abn but stable discussed importance of checking feet regularly. no open toe shoesneed to protect feet [id number] Dorina Zaman RN , [facility] [place], [address]ICE [address] [place] [address] 11/18/2020 08:16:03 11/19/2020 16:14:08 [id number] Yolette Ortiz RN [facility], [facility] [place] [address] [place] [address] 11/26/2020 06:44:42 11/26/2020 12:47:20 [id number] Nikole SEARS, [facility] [place] OFFICE [address] [place] [address] 06/03/2021 14:03:53 06/03/2021 14:47:31 Low back pain 614412637 M54.50 acute low back pain x 4 hoursNo Red FlagsCan use heat/ice to see if its helpfulMot rin for pain as neededTria l muscle relaxants for spasmsAdvi sed if no improvemen t over the next couple of weeks to f/u for PT referral Benign ess ential hypertension 7376300 I10 BP at goalBP goal < 130/80labs up to date [id number] Jarocho Browne MD , [facility] [place] OFFICE [address] [place] [address] 06/13/2021 08:59:47 06/13/2021 09:45:05 Rib pain 711151055 R07.81 fall to a raised corner of a deck yesterdayn ow with positional muscular pain Left Ant chest wall and axilla. wincingly tender adxf5ar rib mid axillary line although no ecchymosis or wound is visibleL CTA he has experience d rib injuries before, so understand s duration of activity limiting pain with leftarm and truncal movementsr ec ibuprofen' image fo rproignost ics [id number] Aydee Clarke NP , [facility] [place] [address]ICE [address] [place] [address] 11/03/2021 08:30:54 11/03/2021 09:02:37 Adult health examination 299700177 Z00.00 see Risk Assessment and Lifestyle Change Counseling section above HM: labs utd colonoscop y 11/26/2020 W/ 5 YR REPEATEYE EXAM 10/23/2020- WILL SCHEDULE Counseling 429610746 Z71 .9 including cardioascu lar risk reduction counseling Depression screening 171 943881 Z13.31 neg phq 9depressio n screening tool administer ed, entered into emr, scored and discussed, time greater than 7.5 minutes Screening for alcohol abuse 462791542 Z13.39 + auditwill work on decreasein g Amputated toe 652713252 Z89.429 R 2nd toecheck feet daily Alcohol dependence 93729 003 F10.20 Audit 7 more with pandemic and loss of dog 3-4 2x week and then on weekends advised to reduce- pt agrees Essential hypertension 47035981 I10 Bp not at goal of < 130/80 but just aboveno med changes Neuropathy due to diabetes mellitus 887291798 E11.40 A1C 6,4- sugars stablec/w metformin 1500 mg qdabn but stable discussed importance of checking feet regularly. no open toe shoesneed to protect feet Mixed hyperlipidemia 267 456577 E78.2 Cholestero l is at goal LDL is 45 Trigs are better 222 Continue to work on diet and exercise as discussed Obesity 378161653 E66.9 BMI 30.6keep low fat, low carb dietc/w regular activity [id number] Carolina SEARS, [facility] [place], [place] [address] [place] [address] 05/11/2022 09:14:18 05/11/2022 09:53:17 Essential hypertension 61085042 I10 Bp at goal of < 130/80no med changesf/u 3 mos Mixed hyperlipidemia 267 161429 E78.2 Cholestero l is at goal LDL is 45 Trigs 371- will work on better diet Continue to work on diet and exercise as discussed Amputated toe 044123321 Z89.429 R 2nd toecheck feet daily Obesity 078641697 E66.9 BMI 30.6keep low fat, low carb dietc/w regular activity Alcohol dependence 69419 003 F10.20 more with pandemic and loss of dog but had returned to baseline 3-4 2x week Neuropathy due to diabetes mellitus 059887387 E11.40 A1C 6.6 - slight increase from previous but overall sugars stablec/w metformin 1500 mg qdabn but stable discussed importance of checking feet regularly. 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 Genesis Coats [id number] Aydee Clarke NP , [facility] [place] [place] [address] [place] [address] 11/10/2022 08:27:54 11/10/2022 09:18:34 Adult health examination 205844739 Z00.00 see Risk Assessment and Lifestyle Change Counseling section above HM: labs utd colonoscop y 11/26/2020 W/ 5 YR REPEATEYE EXAM 10/23/2020- WILL SCHEDULE Depression screening 171 616049 Z13.31 depression screening tool administer edneg phq 9 Screening for alcohol abuse 376463720 Z13.39 Alcohol use screening tool administer edaudit 55 days a week- more on weekends. 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 no open toe shoesneed to protect feet Primary er ectile dysfunction 407439707 N52.9 Disorder o f nervous system due to type 2 diabetes mellitus 408505968 E11.49 A1C 6.4 -c/w metformin 1500 mg qdfully abn foot exam but stable discussed importance of checking feet regularly. no open toe shoesneed to protect feet [id number] Nikole Pandya . 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, etohwill repeat a1c 3 mos [id number] Ynai Villegas RN Endoscopy , [facility] [place] [address] [place] [address] 01/02/2024 06:45:56 01/02/2024 10:51:16 [id number] Junie Parekh MD , [facility] [place] [place] [address] [place] [address] 11/02/2023 08:07:58 11/02/2023 10:18:03 Rib pain 143230164 R07.81 Acute L rib pain s/p tripping on broken stairs and falling on L side on stone wall, 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 676293343 E11.3299 mild OUutd on exam 04/2023fol lowed by Thaddeusrdamon yan get exam notes Type 2 nora betes mellitus without complication 544897359 E11.9 A1C 6.5 at Goal <6.5 advised to reduce ETOH doing well with more activity d/t job no med changes rto 6 months for MM Obesity 905481086 E66.9 BMI 30.4keep low fat, low carb dietc/w regular activity Alcohol dependence 37506 003 F10.20 continues with etoh 3-4 days week more on weekends d iscussed impact on EDencourag ed reduction Benign ess ential hypertension 8392374 I10 BP at goal c/w lisinopril continue to work on diet, exercise, and lowering salt intake as discussed Neuropathy due to diabetes mellitus 201628363 E11.40 A1C 6.5c/w metformin 2000 mg qdfully abn foot exam but stable discussed importance of checking feet regularly. no open toe shoesneed to protect feet Mixed hyperlipidemia 267 842265 E78.2 Cholestero l is at goal at 30c/w statinCont inue to work on diet and exercise as discussed Adult heal th examination 692915969 Z00.00 see Risk Assessment and Lifestyle Change Counseling section above HM: labs utd colonoscop y 11/26/2020 W/ 5 YR REPEATEYE EXAM 04/2023- WILL SCHEDULE declines psa Depression screening 171 797112 Z13.31 depression screening tool administer edneg phq 9mood is good Screening for alcohol abuse 043854874 Z13.39 Alcohol use screening tool administer edaudit 8etoh dependence discussed impact on sugars, kidney/braden er fx- understand s Screening for malignant neoplasm of prostate 001112759 Z12.5 If you have a prostate, the [place].S. Preventive Services Task Force advises not to make a PSA test a part of the standard exam for ages 55-69. Instead they recommend the uncertaint ies about the test be discussed and ordered only if a patient still wants it. Over their lifetimes as many as 50% or more of persons with a prostate will develop prostate cancer but only 2% of them will of prostate cancer. For those who chose to be screened for prostate cancer, if 1000 are screened with a psa test over a 15 year period there might be 1-2 deaths prevented however 235 persons will have a biopsy with risk of infection, bleeding and pain, 100 will have their prostate removed by surgery or radiation treatments and 60-70 of those will suffer incontinen ce or impotence. There is also the risk of anesthesia or radiation complicati ons. For those over 70, prostate cancer screening offered no benefit and risked pain, worry, expense and possibly shorter life expectancy .declines testing this year Rib pain 230662566 R07.8 1 injury 2 weeks agorf of ibuprofen Disorder o f nervous system due to type 2 diabetes mellitus 975689756 E11.49 A1C 6.5c/w metformin 1500 mg qdfully abn foot exam but stable discussed importance of checking feet regularly. 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 999173728 E11.3299 mild OUutd on exam 06/2023fol lowed by [facility] Type 2 nora betes mellitus without complication 435066736 E11.9 A1C 6.9 at Goal <7.0 advised to reduce ETOH doing well with more activity d/t job no med changes rto 6 months for MM Obesity 629168655 E66.9 BMI 30.4keep low fat, low carb dietc/w regular activity Alcohol dependence 18619 003 F10.20 etoh 4-5 x week few drinkswork ing on reducing weekday drinkingun derstands impact on blood sugar, liver Benign ess ential hypertension 3726579 I10 BP at goal c/w lisinopril continue to work on diet, exercise, and lowering salt intake as discussed Neuropathy due to diabetes mellitus 379355762 E11.40 A1C 6.9 up from 6.5is going to focus on diet, less weekday etohc/w metformin 2000 mg qdfully abn foot exam but stable discussed importance of checking feet regularly. no open toe shoesneed to protect feet Mixed hyperlipidemia 267 412166 E78.2 Cholestero l is at goal at 30c/w statinCont inue to work on diet and exercise as discussed Influenza vaccination declined 710639372 Z28.21 Health Concerns Section Related Observation LastModified by Organization Detai ls LastModified Time None Recorded Concern Status LastModified by Organization Details LastModified Time None Recorded Advance Directives Directive None Recorded Payers Encounter Date Sequence Insurance Name Policy Number Policy Padron Covered Member ID Padron Member ID Guarantor Name 11/10/2022 1 [facility] [employer] [address] Tim[address] L[address] [id number] Timo Riverasano 05/10/2023 1 [employer] 111 Tim[address] L[address]no [id number] Timo Riverasano 11/02/2023 1 [place] 111 Timo Riverasano [id number] Timo Payne Yusra 11/13/2023 1 [place] 111 Timo L[place]no [id number] Timo Riverasano 05/15/2024 1 [place] [employer] [place] 111 Timo Lathamno [id number] Timo Lathamno Notes Date Note Type Note Provider Name and Address Organization Details Recorded Time 3 text/html Physical Exam/MaleReported bypatient.PHAPatient is here for a Wellness Visit. He describes his health status as good. Patient's health is the same as last year.Risk Assessment and Lifestyle Change Counseling 50-64Reported bypatient.Coronary Artery Disease Risk Assessment:No Family history of coronary artery disease;Personal history of diabetes; No history of peripheral vascular disease, AAA, or carotid disease; No personal history of coronary artery disease Breast Cancer Risk Assessment:No family history of breast cancer Colon Cancer Risk Assessment:No family history of colon polyps or cancer Lung Cancer Risk Assessment:Never smoked Diet:Counseled about appropriate portion size; Counseled about eating a diet low in trans and saturated fats and high in fiber, fruits and vegetables; Discussed the value of a Mediterranean diet , and eating more fruits and vegetables Exercise counseling:Discussed the importance of daily physical activity; Discussed the importance of weight bearing exerciseVMG DiabetesReported bypatient.Review finger sticks:Fasting`150 Duration:chronic Control:usually poorly controlled; treated with diet and oral medications; Hemoglobin A1C goal is less than 7; BP usually runs 120-130/80-85; BP goal is lessthan 130/80 Compliance:compliant with medications; Patient understands medications are to reduce blood sugar and control diabetes; compliant with follow-up visits;noncompliant with home glucose monitoring Self Care:not monitoring home glucose Context:seeing eye doctor regularly Associated Symptoms:no weight loss; no headaches; no increased urination; no calluses on feet; no coronary artery disease;numbness of feet;peripheral vascular disease Ability to Manage Self CareOn how confident the patient feels in ability to self manage condition the patient selects 8 with 10 being very confident and 1 being very low confidenceVMG HyperlipidemiaReported bypatient.Control:well controlled Compliance:noncompliant with diet Barriers to CareNo identified barriers to care Associated Symptoms:no muscle pain; no dyspnea; no change in exercise capacity Ability to Manage Self CareOn how confident the patient feels in ability to self manage condition the patient selects 8 with 10 being very confident and 1 being very low confidenceVMG HypertensionReported bypatient.Context:No kidney disease; No congestive heart failure;Peripheral vascular disease Control:Patient understands medications are to lower blood pressure Associated Symptoms:No chest pain; No edema; No decline in exercise capacity Aydee Clarke NP [address] [place] [address], [phone], [facility] 11/10/2022 09:20:06 3 text/html VMG DiabetesReported bypatient.Review finger sticks:Fasting`150 Duration:chronic Control:usually well controlled; treated with diet and oral medications; Hemoglobin A1C goal is less than 7; BP usually runs 120-130/80-85; BP goal is lessthan 130/80 Compliance:compliant with medications; Patient understands medications are to reduce blood sugar and control diabetes; compliant with follow-up visits;noncompliant with home glucose monitoring Self Care:not monitoring home glucose Context:seeing eye doctor regularly Associated Symptoms:no weight loss; no headaches; no increased urination; no calluses on feet; no coronary artery disease;numbness of feet;peripheral vascular disease Ability to Manage Self CareOn how confident the patient feels in ability to self manage condition the patient selects 8 with 10 being very confident and 1 being very low confidenceVMG HyperlipidemiaReported bypatient.Control:well controlled Compliance:noncompliant with diet Barriers to CareNo identified barriers to care Associated Symptoms:no muscle pain; no dyspnea; no change in exercise capacity Ability to Manage Self CareOn how confident the patient feels in ability to self manage condition the patient selects 8 with 10 being very confident and 1 being very low confidenceVMG HypertensionReported bypatient.Context:No kidney disease; No congestive heart failure;Peripheral vascular disease Control:Patient understands medications are to lower blood pressure Associated Symptoms:No chest pain; No edema; No decline in exercise capacity saw dentist concern re: [id number] up from 6.4- has beenetoh 3-4 days a week - few after work Nikole Pandya. 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 Pain when getting up from seated positioncan't sleep on that side feels like cracked rib - has had these in the past No shortness of breathno dizzinessno abdominal pain or hardness Taking ibuprofen for the paindid ice and heat - heat feels better than the ice. Junie Parekh MD [address] [place] [address], [phone], [facility] 11/02/2023 09:54:13 4 text/html Physical Exam/MaleReported bypatient.PHAPatient is here for a Wellness Visit. He describes his health status as good. Patient's health is the same as last year.Risk Assessment and Lifestyle Change Counseling 50-64Reported bypatient.Coronary Artery Disease Risk Assessment:No Family history of coronary artery disease;Personal history of diabetes; No history of peripheral vascular disease, AAA, or carotid disease; No personal history of coronary artery disease Breast Cancer Risk Assessment:No family history of breast cancer Colon Cancer Risk Assessment:No family history of colon polyps or cancer Lung Cancer Risk Assessment:Never smoked Diet:Counseled about appropriate portion size; Counseled about eating a diet low in trans and saturated fats and high in fiber, fruits and vegetables; Discussed the value of a Mediterranean diet , and eating more fruits and vegetables Exercise counseling:Discussed the importance of daily physical activity; Discussed the importance of weight bearing exerciseVMG DiabetesReported bypatient.Review finger sticks:Fasting`150 Duration:chronic Control:usually well controlled; treated with diet and oral medications; Hemoglobin A1C goal is less than 7; BP usually runs 120-130/80-85; BP goal is lessthan 130/80 Compliance:compliant with medications; Patient understands medications are to reduce blood sugar and control diabetes; compliant with follow-up visits;noncompliant with home glucose monitoring; Taking LUIS or ARB; Taking a statin medications Self Care:not monitoring home glucose Context:normal range of home blood sugars (in the low 100s); seeing eye doctor regularly; checking feet regularly Associated Symptoms:no weight loss; no headaches; no increased urination; no calluses on feet; no coronary artery disease;numbness of feet;peripheral vascular disease Ability to Manage Self CareOn how confident the patient feels in ability to self manage condition the patient selects 8 with 10 being very confident and 1 being very low confidenceVMG HyperlipidemiaReported bypatient.Duration:chronic Control:well controlled; Patient understands medications are to lower cholesterol Compliance:compliant with medications; compliant with follow-up visits; compliant with diet Barriers to CareNo identified barriers to care Context:Diabetes;Peripheral vascular disease (92342) Associated Symptoms:no muscle pain; no dyspnea; no change in exercise capacity Ability to Manage Self CareOn how confident the patient feels in ability to self manage condition the patient selects 8 with 10 being very confident and 1 being very low confidenceVMG HypertensionReported bypatient.Context:No kidney disease; No congestive heart failure;Peripheral vascular disease Control:Patient understands medications are to lower blood pressure Associated Symptoms:No chest pain; No edema; No decline in exercise capacity Aydee Clarke NP [address] [place] [address], [phone], [facility] 11/13/2023 13:01:29 4 text/html VMG DiabetesReported bypatient.Review finger sticks:Fasting`150 Duration:chronic Control:usually well controlled; treated with diet and oral medications; Hemoglobin A1C goal is less than 7; BP usually runs 120-130/80-85; BP goal is lessthan 130/80 Compliance:compliant with medications; Patient understands medications are to reduce blood sugar and control diabetes; compliant with follow-up visits;noncompliant with home glucose monitoring; Taking LUIS or ARB; Taking a statin medications Self Care:not monitoring home glucose Context:normal range of home blood sugars (in the low 100s); seeing eye doctor regularly; checking feet regularly Associated Symptoms:no weight loss; no headaches; no increased urination; no calluses on feet; no coronary artery disease;numbness of feet;peripheral vascular disease Ability to Manage Self CareOn how confident the patient feels in ability to self manage condition the patient selects 8 with 10 being very confident and 1 being very low confidenceVMG HyperlipidemiaReported bypatient.Duration:chronic Control:well controlled; Patient understands medications are to lower cholesterol Compliance:compliant with medications; compliant with follow-up visits; compliant with diet Barriers to CareNo identified barriers to care Context:Diabetes;Peripheral vascular disease (80870) Associated Symptoms:no muscle pain; no dyspnea; no change in exercise capacity Ability to Manage Self CareOn how confident the patient feels in ability to self manage condition the patient selects 8 with 10 being very confident and 1 being very low confidenceVMG HypertensionReported bypatient.Context:No kidney disease; No congestive heart failure;Peripheral vascular disease Control:Patient understands medications are to lower blood pressure Associated Symptoms:No chest pain; No edema; No decline in exercise capacity etoh 4-5 x week - few drinksis going to return to keeping it to weekends Aydee Clarke NP [address] [place] [address], [phone], [facility] 05/15/2024 08:59:35
--- OUTSIDE RECORDS SUMMARY | 2024-08-22 08:04 | XMS_ITS | Encounter Summary ---
Author Organization [facility] Address [phone] [place] [address] Care Team Providers Care Director Software Quality Assurance Name Role Phone Anali Yanez DO Primary Care Provider [phone] Orin Joshi NP Primary Care Provider [phone] Encounter Details Date Type Department Care Team (Late st Contact Info) Description 02/04/2018 Procedure Pass OR Admitting Dept - Virtual Department [address] [place] [address] Social History Tobacco Use Types Packs/Day Years Used Date Smoking Tobacco: Never Smokeless Tobacco: Never Alcohol Use Standard Drinks/Week Comments Yes 0 (1 standard drink = 0.6 oz pur e alcohol) 5 daysa week Sex and Gender Information Value Date Recorded Sex Assigned at Not on file Gender Identity Not on file Sexual Orientation Not on file documented as of this encounter Plan of Treatment Not on file documented as of this encounter Visit Diagnoses Not on filedocumented in this encounter Care Teams Director Software Quality Assurance Relationship Specialty Start Date End Date Anali Yanez DO [address] [place] [phone] [email or web address] PCP - General Internal Medicine 01/31/18 11/25/20 Orin Joshi NP [address] [place] [id number] PCP - General 11/26/20 documented as of this encounter Additional Source Comments The information contained in this document represents components of the legal health record. It is not the complete legal health record.[facility]
--- OUTSIDE RECORDS SUMMARY | 2024-08-22 08:04 | XMS_ITS | Encounter Summary ---
Author Organization [facility] Address [phone] [facility] [place] [address] Care Team Providers Care Furniture Repair Technician Name Role Phone Anali Yanez DO Primary Care Provider [phone] Orin Joshi NP Primary Care Provider [phone] Encounter Details Date Type Department Care Team (Latest Contact Info) Description 11/23/2020 Transcribe Orders Virtual Department [address] [place] [address] Mynor Saab MD [address] [place] [address] [email or web address] Pre-procedure lab exam (Primary Dx) Social History Tobacco Use Types Packs/Day Years [...] on file documented as of this encounter Results * COVID-19 PCR Order (11/23/2020 1:55 PM EDT) COVID-19 Comment [id number] [facility] COVID Testing Status Sent to [facility] 11/23/2020 1:55 PM EDT 11/23/2020 4:51 PM EDT Mynor Saab MD BODY FLUIDS AND STOO LS ORDERABLES [facility] [address] [place] [address] documented in this encounter Visit Diagnoses Diagnosis Pre-procedure lab exam- Primary Pre-procedural laboratory examination documented in this encounter Care Teams Furniture Repair Technician Relationship Specialty Start Date End Date Anali Yanez DO [address] [place] [address] [email or web address] PCP - General Internal Medicine 01/31/18 11/25/20 Orin Joshi NP [address] [place] [phone] PCP - General 11/26/20 documented as of this encounter Additional Source Comments The information contained in this document represents components of the legal health record. It is not the complete legal health record.[facility]
--- OUTSIDE RECORDS SUMMARY | 2024-08-22 08:04 | XMS_ITS | Data Portability ---
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 Assessment Encounter Date Assessment Date Assessment LastModified [...] Details Appointments LAB Follow-Up 2024 07:30A M [facility] Lab Not available Not available Not available Wellness Visit 30 2024 09:15A M Aydee Madelyn, DIAMOND POWDER MIXER Not available Not available Not available Lab HbA1c (hemoglob in A1c), blood 2022 024 [facility], [address], [place], [address], 08/09/2023 10:57:33 Referral gastroent erologist referral - per dentist as significa nt erosion of enamel 2022 023 [facility], [address] [place], [address], 09/28/2023 12:31:18 Procedures None recorded. Surgeries None recorded. Imaging XR, ribs, unilatera l - eval for fractured ribs, s/p fall on stone wall on L side 2023 024 [facility] (Imaging), [address] , [place], [address], 11/02/2023 10:18:03 Medication Orders sildenafi l 50 mg tablet 2022 023 [email or web address] [facility][id number], [address] [place] [address], [address], 11/13/2023 09:54:42 ibuprofen 800 mg tablet 2023 024 [facility], [address] [place], [address], 11/02/2023 08:27:07 ibuprofen 800 mg tablet 2023 024 pkeough [facility]0818, [address] [place], [address], 11/13/2023 10:26:24 lisinopri l 10 mg tablet 2023 024 [facility] #0818, [address] [place], [address], 11/13/2023 10:26:18 simvastat in 20 mg tablet 10/24/ 2024 10/24/2 024 [facility]08[facility], [address] [place] [address], [address], 05/15/2024 08:59:23 metformin ER 500 mg tablet,ex tended release 24 hr 2023 024 [facility], [address] [place] [address], [address], 05/15/2024 08:59:23 lisinopri l 10 mg tablet 2023 024 [facility]0818, [address] [place] [address], [address], 05/15/2024 08:59:22 Patient TargetsNo targets recorded. Patient Instructions Encounter Date Encounter Id Patient Instructions Last Modified By Organization Details Last Modified Time 11/10/2022 [id number] high cholesterol lifestyle changes p[place] Not available 11/10/2022 09:18:51 Well Visit 50 to 65: Care Instructions p[place] Not available 11/10/2022 09:18:50 11/13/2023 [id number] high blood pressure: care instructions [place] Not available 11/13/2023 10:26:16 learning about high blood pressure [place] Not available 11/13/2023 10:26:16 05/15/2024 [id number] high blood pressure: care instructions [place] Not available 05/15/2024 08:59:20 learning about high blood pressure [place] Not available 05/15/2024 08:59:20 Reason for Referral 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 3 Not Available [address], [address], 11/02/2022 15:34:56 11/03/19 23 11/02/2022 BASIC METAB OLIC PANEL B/C 17.0 ratio Not Available [address], [address], 11/02/2022 15:34:56 11/03/19 23 11/02/2022 BASIC METAB [...] be used in pregn babak. Not Available [address], [address], 11/02/2022 15:34:56 11/03/19 23 11/02/2022 BASIC METAB OLIC PANEL sodium 138 mmol/ L 136-14 5 Not Available [address], [address], 11/02/2022 15:34:56 11/03/19 23 11/02/2022 BASIC METAB OLIC PANEL potassium 4.3 mmol/ L 3.5-5. 1 Not Available [address], [address], 11/02/2022 15:34:56 11/03/19 23 11/02/2022 BASIC METAB OLIC PANEL chloride 102 mmol/ L 96-107 Not Available [address], [address], 11/02/2022 15:34:56 11/03/19 23 11/02/2022 BASIC METAB OLIC PANEL anion gap 9.2 5.0-15 .0 Not Available [address], [address], 11/02/2022 15:34:56 11/03/19 23 11/02/2022 BASIC METAB OLIC PANEL CO2 27 mmol/ L 21-32 Not Available [address], [address], 11/02/2022 15:34:56 11/03/19 23 11/02/2022 BASIC METAB OLIC PANEL calcium 8.9 mg/dL 8.5-10 .3 Not Available [address], [address], 11/02/2022 15:34:56 11/03/1911/02/2022 LIPID PANEL cholesterol 143 mg/dL <200 mg/dl Sudhir able 200-2 39 mg/dl Borde rline High >240 mg/dl High Not Available [address], [address], 11/02/2022 15:34:57 11/03/19 23 11/02/2022 LIPID PANEL triglyceride s 317 mg/dL high <150 mg/dL Viki l 150-1 99 mg/dL Borde rline High 200-4 99 mg/dL High >500 mg/dL Very High Not Available [address], [address], 11/02/2022 15:34:57 11/03/19 23 11/02/2022 LIPID PANEL direct HDL 38 mg/dL <40 mg/dl - Major Risk for CHD >60 mg/dl - Negat berta Risk for CHD Not Available [address], [address], 11/02/2022 15:34:57 11/03/19 23 11/02/2022 DIREC T [...] with 0-1 risk facto r is not neces maisha. Not Available [address], [address], 11/02/2022 16:48:05 05/03/2005/03/2023 HGB A1C hemoglobin A1C [...] furth er confi rmati on Not Available [address], [address], 05/03/2023 12:05:19 05/03/2005/03/2023 HGB A1C estimated average glucose 157.1 mg/dL Not Available [address], [address], 05/03/2023 12:05:19 05/03/2005/03/2023 BASIC METAB OLIC PANEL glucose 173 mg/dL 70-100 high Not Available [address], [address], 05/03/2023 12:12:20 05/03/2005/03/2023 BASIC METAB OLIC PANEL BUN 17 mg/dL 7-18 Not Available [address], [address], 05/03/2023 12:12:20 05/03/2005/03/2023 BASIC METAB OLIC PANEL creatinine 1.0 mg/dL 0.8-1. 3 Not Available [address], [address], 05/03/2023 12:12:20 05/03/2005/03/2023 BASIC METAB OLIC PANEL B/C 17.0 ratio Not Available [address], [address], 05/03/2023 12:12:20 05/03/2005/03/2023 BASIC METAB OLIC PANEL [...] be used in pregn babak. Not Available [address], [address], 05/03/2023 12:12:20 05/03/2005/03/2023 BASIC METAB OLIC PANEL sodium 138 mmol/ L 136-14 5 Not Available [address], [address], 05/03/2023 12:12:20 05/03/2005/03/2023 BASIC METAB OLIC PANEL potassium 4.2 mmol/ L 3.5-5. 1 Not Available [address], [address], 05/03/2023 12:12:20 05/03/2005/03/2023 BASIC METAB OLIC PANEL chloride 102 mmol/ L 96-107 Not Available [address], [address], 05/03/2023 12:12:20 05/03/2005/03/2023 BASIC METAB OLIC PANEL anion gap 11.9 5.0-15 .0 Not Available [address], [address], 05/03/2023 12:12:20 05/03/2005/03/2023 BASIC METAB OLIC PANEL CO2 24 mmol/ L 21-32 Not Available [address], [address], 05/03/2023 12:12:20 05/03/20 23 05/03/2023 BASIC METAB OLIC PANEL calcium 9.0 mg/dL 8.5-10 .3 Not Available [address], [address], 05/03/2023 12:12:20 05/03/2005/03/2023 LIPID PANEL cholesterol 148 mg/dL <200 mg/dl Sudhir able 200-2 39 mg/dl Borde rline High >240 mg/dl High Not Available [address], [address], 05/03/2023 12:12:21 05/03/2005/03/2023 LIPID PANEL triglyceride s 323 mg/dL high <150 mg/dL Viki l 150-1 99 mg/dL Borde rline High 200-4 99 mg/dL High >500 mg/dL Very High Not Available [address], [address], 05/03/2023 12:12:21 05/03/2005/03/2023 LIPID PANEL direct HDL 42 mg/dL <40 mg/dl - Major Risk for CHD >60 mg/dl - Negat berta Risk for CHD Not Available [address], [address], 05/03/2023 12:12:21 05/03/2005/03/2023 DIREC T LDL direct LDL 48 mg/dL [...] 0-1 risk facto r is not jose maisha. Not Available [address], [address], 05/03/2023 14:38:05 05/03/20 23 05/03/2023 MICRO ALBUM IN/CR EATIN INE RATIO PANEL , URINE microalbumin 8.0 mg/L 1.3-20 .0 Not Available [address], [address], 05/03/2023 15:48:25 05/03/20 23 05/03/2023 MICRO ALBUM IN/CR EATIN INE RATIO PANEL , URINE creatinine urine 139.3 mg/dL 30.0-1 25.0 high Not Available [address], [address], 05/03/2023 15:48:25 05/03/20 23 05/03/2023 MICRO ALBUM IN/CR EATIN INE RATIO PANEL , URINE microalb/cre at ratio 5.7 mg/g_ creat 0.0-29 .0 Not Available [address], [address], 05/03/2023 15:48:25 08/09/19 24 08/09/2023 BASIC METAB OLIC PANEL glucose 168 mg/dL 70-100 high Not Available [address], [address], 08/09/2023 10:55:05 08/09/19 24 08/09/2023 BASIC METAB OLIC PANEL BUN 17 mg/dL 7-18 Not Available [address], [address], 08/09/2023 10:55:05 08/09/19 24 08/09/2023 BASIC METAB OLIC PANEL creatinine 1.1 mg/dL 0.8-1. 3 Not Available [address], [address], 08/09/2023 10:55:05 08/09/19 24 08/09/2023 BASIC METAB OLIC PANEL B/C 15.5 ratio Not Available [address], [address], 08/09/2023 10:55:05 08/09/19 24 08/09/2023 BASIC METAB [...] be used in pregn babak. Not Available [address], [address], 08/09/2023 10:55:05 08/09/19 24 08/09/2023 BASIC METAB OLIC PANEL sodium 139 mmol/ L 136-14 5 Not Available [address], [address], 08/09/2023 10:55:05 08/09/19 24 08/09/2023 BASIC METAB OLIC PANEL potassium 4.3 mmol/ L 3.5-5. 1 Not Available [address], [address], 08/09/2023 10:55:05 08/09/19 24 08/09/2023 BASIC METAB OLIC PANEL chloride 102 mmol/ L 96-107 Not Available [address], [address], 08/09/2023 10:55:05 08/09/19 24 08/09/2023 BASIC METAB OLIC PANEL anion gap 10.8 5.0-15 .0 Not Available [address], [address], 08/09/2023 10:55:05 08/09/19 24 08/09/2023 BASIC METAB OLIC PANEL CO2 26 mmol/ L 21-32 Not Available [address], [address], 08/09/2023 10:55:05 08/09/19 24 08/09/2023 BASIC METAB OLIC PANEL calcium 8.9 mg/dL 8.5-10 .3 Not Available [address], [address], 08/09/2023 10:55:05 08/09/19 24 08/09/2023 HGB A1C [...] furth er confi rmati on Not Available [address], [address], 08/09/2023 10:57:32 08/09/19 24 08/09/2023 HGB A1C estimated average glucose 157.1 mg/dL Not Available [address], [address], 08/09/2023 10:57:32 10/25/19 24 10/25/2023 HGB A1C [...] furth er confi rmati on Not Available [address], [address], 10/25/2023 11:15:39 10/25/19 24 10/25/2023 HGB A1C estimated average glucose 139.9 mg/dL Not Available [address], [address], 10/25/2023 11:15:39 10/25/19 24 10/25/2023 BASIC METAB OLIC PANEL glucose 149 mg/dL 70-100 high Not Available [address], [address], 10/25/2023 16:27:42 10/25/19 24 10/25/2023 BASIC METAB OLIC PANEL BUN 21 mg/dL 7-18 high Not Available [address], [address], 10/25/2023 16:27:42 10/25/19 24 10/25/2023 BASIC METAB OLIC PANEL creatinine 1.0 mg/dL 0.8-1. 3 Not Available [address], [address], 10/25/2023 16:27:42 10/25/19 24 10/25/2023 BASIC METAB OLIC PANEL B/C 21.0 ratio Not Available [address], [address], 10/25/2023 16:27:42 10/25/19 24 10/25/2023 BASIC METAB [...] be used in pregn babak. Not Available [address], [address], 10/25/2023 16:27:42 10/25/19 24 10/25/2023 BASIC METAB OLIC PANEL sodium 139 mmol/ L 136-14 5 Not Available [address], [address], 10/25/2023 16:27:42 10/25/19 24 10/25/2023 BASIC METAB OLIC PANEL potassium 4.4 mmol/ L 3.5-5. 1 Not Available [address], [address], 10/25/2023 16:27:42 10/25/19 24 10/25/2023 BASIC METAB OLIC PANEL chloride 101 mmol/ L 96-107 Not Available [address], [address], 10/25/2023 16:27:42 10/25/19 24 10/25/2023 BASIC METAB OLIC PANEL anion gap 12.9 5.0-15 .0 Not Available [address], [address], 10/25/2023 16:27:42 10/25/19 24 10/25/2023 BASIC METAB OLIC PANEL CO2 25 mmol/ L 21-32 Not Available [address], [address], 10/25/2023 16:27:42 10/25/19 24 10/25/2023 BASIC METAB OLIC PANEL calcium 9.1 mg/dL 8.5-10 .3 Not Available [address], [address], 10/25/2023 16:27:42 10/25/19 24 10/25/2023 LIPID PANEL cholesterol 113 mg/dL <200 mg/dl Sudhir able 200-2 39 mg/dl Borde rline High >240 mg/dl High Not Available [address], [address], 10/25/2023 16:27:43 10/25/19 24 10/25/2023 LIPID PANEL triglyceride s 205 mg/dL <150 mg/dL Viki l 150-1 99 mg/dL Borde rline High 200-4 99 mg/dL High >500 mg/dL Very High Not Available [address], [address], 10/25/2023 16:27:43 10/25/19 24 10/25/2023 LIPID PANEL direct HDL 42 mg/dL <40 mg/dl - Major Risk for CHD >60 mg/dl - Negat betra Risk for CHD Not Available [address], [address], 10/25/2023 16:27:43 10/25/19 24 10/25/2023 LDL - [...] r is not jose reddingy. Not Available [address], [address], 10/25/2023 16:27:44 10/25/19 24 10/26/2023 IMMUN OGLOB ULIN A immunoglobul in A 125 mg/dL 47-310 normal Not Available [facility] [address], [address], 10/26/2023 16:02:40 10/25/19 24 10/26/2023 TISSU E TRANS GLUTA SANDRINE E AB, IGA tissue transglutami nase Ab, IgA <1.0 U/mL normal Value Inter preta tion ----- ----- ----- ---- <15.0 Antib tobias not detec audelia > or = 15.0 Antib tobias detec audelia Not Available [facility] [address], [place], [address], 10/26/2023 16:02:41 01/02/20 24 01/02/2024 POC GLU POC glu 179 70 - 100 high Not Available [facility] [address] [place] [address], [address], 01/04/2024 09:10:15 05/08/20 24 05/08/2024 HGB A1C [...] furth er confi rmati on Not Available [address] [place], [address], 05/08/2024 11:51:31 05/08/20 24 05/08/2024 HGB A1C estimated average glucose 151.3 mg/dL Not Available [address], [address], 05/08/2024 11:51:31 05/08/20 24 05/08/2024 MICRO ALBUM IN/CR EATIN INE RATIO PANEL , URINE microalbumin 21.0 mg/L 1.3-20 .0 high Not Available [address], [address], 05/08/2024 14:38:50 05/08/2005/08/2024 MICRO ALBUM IN/CR EATIN INE RATIO PANEL , URINE creatinine urine 121.7 mg/dL 30.0-1 25.0 Not Available [address], [address], 05/08/2024 14:38:50 05/08/20 24 05/08/2024 MICRO ALBUM IN/CR EATIN INE RATIO PANEL , URINE microalb/cre at ratio 17.3 mg/g_ creat 0.0-29 .0 Not Available [address], [address], 05/08/2024 14:38:50 05/08/20 24 05/09/2024 BASIC METAB OLIC PANEL glucose 182 mg/dL 70-100 high Not Available [address], [address], 05/09/2024 15:14:00 05/08/20 24 05/09/2024 BASIC METAB OLIC PANEL BUN 15 mg/dL 7-18 Not Available [address], [address], 05/09/2024 15:14:00 05/08/20 24 05/09/2024 BASIC METAB OLIC PANEL creatinine 1.1 mg/dL 0.8-1. 3 Not Available [address], [address], 05/09/2024 15:14:00 05/08/2005/09/2024 BASIC METAB OLIC PANEL B/C 13.6 ratio Not Available [address], [address], 05/09/2024 15:14:00 05/08/2005/09/2024 BASIC METAB OLIC PANEL [...] borat ion (CKD- EPI) Equat ion (Rayne maloney et. al 2020) as recom luis d by the Natio n[facility] y [facility] ation . eGFR is based on age, serum creat inine , and sex. CKD-E PI does not calcu late eGFR by race, does not apply to child bakari (age <18 years ), and shoul d not be used in pregn babak. Not Available [address], [address], 05/09/2024 15:14:00 05/08/2005/09/2024 BASIC METAB OLIC PANEL sodium 140 mmol/ L 136-14 5 Not Available [address], [address], 05/09/2024 15:14:00 05/08/20 24 05/09/2024 BASIC METAB OLIC PANEL potassium 4.9 mmol/ L 3.5-5. 1 Not Available [address], [address], 05/09/2024 15:14:00 05/08/20 24 05/09/2024 BASIC METAB OLIC PANEL chloride 101 mmol/ L 96-107 Not Available [address], [address], 05/09/2024 15:14:00 05/08/20 24 05/09/2024 BASIC METAB OLIC PANEL anion gap 9.0 5.0-15 .0 Not Available [address], [address], 05/09/2024 15:14:00 05/08/20 24 05/09/2024 BASIC METAB OLIC PANEL CO2 30 mmol/ L 21-32 Not Available [address], [address], 05/09/2024 15:14:00 05/08/20 24 05/09/2024 BASIC METAB OLIC PANEL calcium 9.5 mg/dL 8.5-10 .3 Not Available [address], [address], 05/09/2024 15:14:00 11/02/19 24 11/02/2023 XR, ribs, unila teral CLINIC AL HISTOR Y: Left-s ided chest wall pain after a fall. Histor y of old fractu res. TECHNI QUE: At least 3 views of the left ribs are obtain ed. COMPAR SANDEE: 2020, 017 FINDIN GS: There are school psychologist assistant ior and latera l fractu res of the left fourth , fifth, sixth ribs. There are fractu re along the latera l aspect of the left sevent h, eighth and ninth ribs. There are fractu re of along the school psychologist assistant ior and beata latera l aspect s [...] Clinic al correl ation recomm ended. Vinh Thurston ana: Heladio Ibrahim ms [facility] [address], [place], [address], 11/13/2023 10:06:59 Result Notes None recorded. Procedures Surgical History Date Name Laterality Status Provider Name and Address Organization Details Recorded Time 01/02/2024 Katiana - EGD completed Mynor Saab MD [address] [place] [address], [id number], [facility] 01/02/2024 07:51:46 Imaging Results Imaging Date Name Status LastModified by [facility] Details LastModified Time 11/02/2023 XR, ribs, unilateral completed [facility] [address], [place], [address], 11/13/2023 10:06:59 Procedure Notes None recorded. Medical [...] 02/09 completed pt as stopped taking this me 02-09-17 KB Not Available Not Available Not [...] Not Available Not Available Not Available Vitals None Recorded Social History Question Answer Notes LastModified by Organizat ion Details LastModified Time What Is Your Level Of Alcohol Consumption? Moderate 5 Days A Week- 4 Shot Glasses A Day Vodka -smirnof. [email or web address] Information not available 05/15/2024 Do You Wear A Helmet When Biking? Yes [email or web address] Information not available 06/24/2015 What Is Your Level Of Caffeine Consumption? None [email or web address] Information not available 05/13/2020 How Much Tobacco Do You Chew? None Information not available 12/31/2012 What Type Of Diet Are You Following? REGULAR [email or web address] Information not available 06/24/2015 Which Illicit Or Recreational Drugs Have You Used? No Denies IVDU Information not available 01/15/2018 Do You Or Have You Ever Used E-cigarettes Or Vape? Never Used Electronic Cigarettes 10/28/2019 TG [email or web address] Information not available 10/28/2019 Education 4 Year College [email or web address] Information not available 06/08/2011 What Is Your Occupation? [employer] Previously [employer] Information not available 12/01/2015 How Many Days In The Past Year Have You Had A Heavy Drinking Consumption (4+ Female, 5+ Male)? 0 Information not available 12/31/2012 Are There Any Guns Present In Your Home? No [email or web address] Information not available 06/24/2015 Live Alone Or With Others? With Others [email or web address] Information not available 06/08/2011 Does The Patient Have Difficulty Speaking Togolese? No Information not available 02/24/2015 Does The Patient Have Difficulty Reading Togolese? No Information not available 02/24/2015 Patient Has Health Care Proxy Signed And In Chart Yes [email or web address] Information not available 11/14/2022 Marital Status [email or web address] Informatio n not available 03/01/2012 Mosquito Repellent Used Routinely Yes Information not available 01/15/2018 What Was The Date Of Your Most Recent Tobacco Screening? 05/11/2022 05/11/22 CJ [email or web address] Information not available 05/11/2022 How Many Children Do You Have? 0 [email or web address] Information not available 06/08/2011 Seat Belts Used Routinely Yes [email or web address] Information not available 06/24/2015 Smoke Alarm In Home Yes [email or web address] Information not available 06/24/2015 Do You Or Have You Ever Used Smokeless Tobacco? Never Used Smokeless Tobacco 10/28/2019 TG [email or web address] Information not available 10/28/2019 How Much Tobacco Do You Smoke? No 05/11/22 CJ [email or web address] Information not available 05/11/2022 What Types Of Sporting Activities Do You Participate In? No Information not available 01/15/2018 General Stress Level Low [email or web address] Information not available 06/24/2015 Do You Use Sunscreen Routinely? Yes [email or web address] Information not available 06/24/2015 How Many Years Have You Smoked Tobacco? 0 [email or web address] Information not available 10/28/2019 Sex: Male Functional [...] Response Diabetes Type II Y Hypertension Y Past Encounters Encounter ID Performer Location Encounter Start Date Encounter Closed Date Diagnosis/Indication Diagnosis SNOMED-CT Code Diagnosis ICD10 Code Diagnosis Note [id number] [facility], OFFICE [address] [place] [address] 08/28/2000 11:45:00 08/12/2008 02:02:29 [id number] [facility], OFFICE [address] [place] [address] 09/07/2006 09:25:16 09/07/2006 13:17:47 [id number] LAB - [address] [place] [address] 09/27/2006 09:47:41 09/27/2006 09:47:45 [id number] [facility], [address] [place] [address] 09/27/2006 10:01:46 09/27/2006 11:52:26 [id number] [facility], [address] [place] [address] 10/15/2006 14:29:42 10/15/2006 17:10:27 [id number] [facility], OFFICE [address] [place] [address] 10/17/2006 08:03:38 10/17/2006 09:08:25 [id number] [facility], OFFICE [address] [place] [address] 01/09/2007 12:05:24 01/09/2007 14:30:41 [id number] LAB - [facility] [address] [place] [address] 01/10/2007 07:28:27 01/10/2007 07:28:32 [id number] LAB - [facility] [address] [place] [address] 01/11/2007 08:57:27 01/11/2007 08:57:35 [id number] [facility], OFFICE [address] [place] [address] 02/01/2007 08:12:35 02/01/2007 10:48:02 [id number] LAB - [facility] [address] [place] [address] 06/11/2007 07:56:03 06/11/2007 07:56:12 [id number] [facility], OFFICE [address] [place] [address] 06/25/2007 09:01:34 08/12/2008 02:02:29 [id number] Podiatry, [facility] [address] [place] [address] 07/09/2007 09:05:27 07/10/2007 09:23:03 [id number] LAB - [facility] [address] [place] [address] 11/19/2007 10:32:30 11/19/2007 10:32:45 [id number] [facility], OFFICE [address] [place] [address] 05/12/2009 10:30:12 05/13/2009 08:35:11 [id number] [facility], OFFICE [address] [place] [address] 06/09/2009 14:41:02 06/10/2009 09:44:59 [id number] Endocrino logy, [facility] [place] [address] 06/23/2009 08:26:26 06/24/2009 09:26:23 [id number] Endocrino logy, [facility] [place] [address] 08/19/2009 09:27:35 08/19/2009 14:10:39 [id number] Endocrino logy, [address] [place] [address] 11/18/2009 09:29:15 11/18/2009 10:41:01 [id number] , [facility] [address] [place] [address] [place] [address] 09/20/2010 12:01:55 09/20/2010 16:23:51 [id number] , [address] [place] [address] 06/21/2011 09:53:16 06/21/2011 10:13:02 [id number] , [address] [place], [place] [address] 01/23/2012 08:10:14 01/23/2012 09:04:59 [id number] , [address] [place] [address] 03/01/2012 08:33:47 03/01/2012 09:08:14 [id number] Dorina Coker , [address] [place] [address] 12/31/2012 11:03:27 01/01/2013 07:35:53 [id number] Jessica Lockett i , [address] [place] [address] 1 05/19/2013 09:39:48 05/19/2013 09:56:44 [id number] Ami Ledesma , [address] [place], [place] [address] 08/28/2013 15:02:43 08/28/2013 15:25:22 [id number] Rosi Reyes , [address] [place] [address] 02/26/2014 09:23:19 02/26/2014 09:55:23 [id number] Montana Foreman III, MD , [address] [place] [address] 1 01/05/2015 10:38:43 01/05/2015 10:57:32 [id number] JUAN Lewis, [facility], [address] [place] [address] 02/23/2015 09:02:42 02/23/2015 09:28:05 [id number] Aydee Clarke NP , [address] [place] [address] 1 02/25/2015 09:28:28 02/25/2015 10:08:25 [id number] JUAN Lewis, [facility], OFFICE [address] [place] [address] [place] [address] 1 02/26/2015 09:13:35 02/26/2015 09:42:40 [id number] PABLO Sommers, [facility], OFFICE [address] [place] [address] [place] [id number] 1 03/01/2015 09:16:53 03/01/2015 09:27:47 [id number] PABLO Sommers, [facility], OFFICE [address] [place] [address] [place] [address] 1 06/24/2015 08:26:01 06/24/2015 09:06:08 [id number] Marcie SEARS, [facility], OFFICE [address] [place] [address] DR [place], [place]UAN [id number] 1 12/01/2015 09:44:27 12/01/2015 10:33:57 [id number] MD RENU Barreto, [facility], [address] [place] [address] 1 01/25/2016 09:18:19 01/25/2016 10:06:23 [id number] PABLO Sommers, [facility], OFFICE [address] [place] [address] [place] [address] 1 06/28/2016 09:35:15 06/29/2016 09:39:46 [id number] PABLO Anna, [facility], [address] [place] [address] 1 10/10/2016 08:00:49 10/12/2016 15:46:30 [id number] PABLO Sommers, [facility], [address] [place] [address] 1 01/09/2017 07:57:33 01/10/2017 09:04:13 [id number] Carolina SEARS, [facility], [address] [place] [address] 1 02/09/2017 11:28:09 02/09/2017 12:27:37 [id number] Lety SEARS, [facility], [address] [place] [address] 1 01/15/2018 10:28:34 01/15/2018 11:35:54 [id number] Joudy-Radha Dinnall, DPM Podiatry, [facility] [address] [facility] [place] [address] 1 01/30/2018 11:02:26 01/30/2018 14:26:05 [id number] Carolina SEARS, [facility], OFFICE [address] [place], [place]UAN [address] 1 01/30/2018 15:50:18 01/30/2018 18:24:23 [id number] Joudy-Radha Dinnall, DPM Podiatry, [facility] [address] [facility] [place] [address] 02/12/2018 10:26:41 02/12/2018 11:12:01 [id number] Joudy-Radha Dinnall, DPM Podiatry, [facility] [address] [place] [address] 02/19/2018 08:51:40 02/19/2018 09:26:45 [id number] Joudy-Radha Dinnall, DPM Podiatry, [facility] [address] [place] [address] 03/05/2018 08:38:01 03/07/2018 14:19:36 [id number] Joudy-Radha Dinnall, DPM Podiatry, [address] [place] [address] 05/07/2018 09:13:31 05/07/2018 09:50:36 [id number] Joudy-Radha Dinnall, DPM Podiatry, [address] [address] 05/21/2018 08:45:10 05/21/2018 16:20:21 [id number] Joudy-Radha Dinnall, DPM Podiatry, [address] [place] [address] 07/09/2018 09:09:03 07/10/2018 08:20:30 [id number] PABLO Sommers, [facility], OFFICE [address] [place], [place]UAN [id number] 1 09/06/2018 14:25:20 09/06/2018 15:02:23 [id number] PABLO Sommers, [facility], OFFICE [address] [place], JUAN [id number] 1 03/10/2019 15:51:01 03/10/2019 16:23:56 [id number] Nikolesaúl Yangamaya . MD SEARS, [facility], OFFICE [address] [place] [address] [place] [address] 1 10/28/2019 08:30:56 10/28/2019 15:14:19 [id number] PABLO Sommers, [address] [place] [address] 1 05/13/2020 10:57:05 05/14/2020 11:47:45 [id number] Aydee Clarke NP , [address] [place] [address] 1 05/27/2020 09:04:01 05/28/2020 15:26:35 [id number] Carolina Yanez D.O. , [address] [place] [id number] 1 10/28/2020 07:51:21 11/19/2020 16:22:56 [id number] Dorina Zaman RN , [address] [place] [address] 1 11/18/2020 08:16:03 11/19/2020 16:14:[id number] [facility], [address] [place] [address] 1 11/26/2020 06:44:42 11/26/2020 12:47:20 [id number] Nikolesaúl Yangamaya . MD SEARS, [facility], [address] [place] [address] 1 06/03/2021 14:03:53 06/03/2021 14:47:31 [id number] MD RENU Barreto, [address] [place] [address] 1 06/13/2021 08:59:47 06/13/2021 09:45:05 [id number] Aydee Clarke NP , [address] [place] [address] 1 11/03/2021 08:30:54 11/03/2021 09:02:37 [id number] Carolina SEARS, [address] [place] [address] 1 05/11/2022 09:14:18 05/11/2022 09:53:17 [id number] Aydee Clarke NP , [facility], OFFICE [address] [place] [address] [place] [address] 1 11/10/2022 08:27:54 11/10/2022 09:18:34 [id number] Nikole Pandya . , [facility] OFFICE [address] [place] [address] [place] [address] 1 05/10/2023 09:15:35 05/14/2023 08:33:22 [id number] Yani Villegas RN Endoscopy , [facility] [address] [place] [address] 1 01/02/2024 06:45:56 01/02/2024 10:51:16 [id number] Junie Parekh MD , [facility], OFFICE [address] [place] [address] [place] [address] 1 11/02/2023 08:07:58 11/02/2023 10:18:03 [id number] Aydee Clarke NP , [facility] OFFICE [address] [place] [address] [place] [address] 1 11/13/2023 09:46:52 11/13/2023 13:24:43 [id number] Aydee Clarke NP , [address] [place] [address] 1 05/15/2024 08:13:22 05/15/2024 10:18:36 Health Concerns Section Related Observation LastModified by Organization Detai ls LastModified Time None Recorded Concern Status LastModified by Organization Details LastModified Time None Recorded Advance Directives Directive None Recorded Payers Encounter Date Sequence Insurance Name Policy Number Policy Padron Covered Member ID Padron Member ID Guarantor Name 11/10/2022 1 [employer] [employer] 111 Timo Meng [id number] Timo Meng 05/10/2023 1 [employer] 111 Timo Meng [id number] Timo Meng 11/02/2023 1 [employer] 111 Timo Meng [id number] Timo Meng 11/13/2023 1 [place] 111 Timo Meng [id number] Timo Meng 05/15/2024 1 [facility]: [employer] 111 Timo Meng [id number] Timo Meng
[2024-08-23 18:29] LABS: Lutenizing Hormone 8.9 mIU/mL (1.5-9.3)
[2024-08-27 19:14] LABS: Testosterone, Free 57.8 pg/mL (35.0-155.0); Testosterone, Total 373 ng/dL (250-1100)
== END 2024-08-22 07:59 | disposition home or self-care (01) ==
LOC: HO.10HDL 07:58
PROVIDERS: Visit Provider Urology
DX: R53.83 Other fatigue (principal)
CPT/HCPCS: 36415; 83002; 84402; 84403

== ENCOUNTER 2024-09-04 08:59 | Outpatient (AMB) | payer BC, SELFPAY ==
--- NOTE | 2024-09-04 09:05 | A.OFFVIS_ITS ---
Intake Visit Reasons: ED/ Vasectomy consult Intake Note: Patient is present for ED/VASECTOMY CONSULT Urology Medication:NONE Antibiotic Allergy:NONE Blood Thinner:NONE Renewals Manager Required: No Allergies No Known Allergies Allergy (Verified 09/04/24 09:06) HPI Comments Details: Dulce is a pleasant male. He is a patient of . He seen for the following urologic conditions - lower urinary tract symptoms - erectile dysfunction associated with diabetes - borderline testosterone Erectile dysfunction Longstanding diabetic Managed with oral medications Progressive difficulty with maintaining erection Trial on demand tadalafil Borderline testosterone Labs - 08/16 testosterone 373, luteinizing hormone 8.9 Bladder outlet obstruction Nocturia 1-2 Feeling of incomplete bladder emptying Trial daily tadalafil Review of Systems Const Denies chills and Denies fever(s) Card Reports no additional complaints and Denies syncope Resp Denies cough GI Denies abdominal pain and Denies heartburn Reports as per HPI and Denies change in libido Neuro Denies syncope Psych Denies change in libido Endo Denies change in libido Physical Exam Const General: cooperative, healthy appearing, comfortable and no acute distress Orientation/consciousness: patient oriented x3 HEENT Face and sinus: Yes normal facial exam Mouth: moist mucous membranes Neck Neck: Yes normal visual inspection, Yes full ROM and Yes trachea midline Chest Chest palpation & inspection: normal inspection of the chest Resp Effort & Inspection: normal respiratory effort, able to speak in complete sentences and no respiratory distress GI Inspection: Yes normal to inspection Back/Spine/Pelvis Cervical Spine: normal cervical lordosis Thoracic/Lumbar Spine: thoracic and lumbar spine normal to inspection Skin General skin exam: no rashes or lesions noted Neuro General: patient oriented x3, gait normal, tone normal and moves all extremities Extrem General: Yes normal to inspection and Yes capillary refill normal Assessment & Plan Assessment & Plan (1) Low testosterone: Code(s): R79.89 - Other specified abnormal findings of blood chemistry Category: Medical (2) Bladder outlet obstruction: Code(s): N32.0 - Bladder-neck obstruction Category: Medical (3) Erectile dysfunction associated with type 2 diabetes mellitus: Code(s): E11.69 - Type 2 diabetes mellitus with other specified complication; N52.1 - Erectile dysfunction due to diseases classified elsewhere Category: Medical Plan Trial tadalafil Three-month follow-up repeat lab work Orders: Orders Testosterone, Total 3 Months R79.89 - Other specified abnormal findings of blood chemistry Medications: New tadalafil 5 mg PO DAILY 90 days 90 tabs 0RF LUTS N32.0 - Bladder-neck obstruction tadalafil On demand medication take 60 minutes before intended activity BIN N Group [facility] [id number] 20 mg PO ONCE 30 days PRN 30 tabs 0RF sexual activity E11.69 - Type 2 diabetes mellitus with other specified complication, N52.1 - Erectile dysfunction due to diseases classified elsewhere Patient Instructions: This note is constructed using voice recognition software. While every effort has been made to ensure accuracy health information specialist errors may have been included. Imaging studies, laboratory and physical exam results were discussed and reviewed in detail. No major barriers to patient understanding were identified. An opportunity to ask questions regarding the treatment plan was provided. All questions were answered. The patient expressed understanding and agreement with the above treatment plan. The patient is aware they should contact our office by phone for worsening of their current condition or the appearance of new urologic symptoms. Compliance is encouraged with any medications and followup testing that is ordered. It is a privilege to participate in the urologic care of your patient. If you have any questions or concerns regarding treatment for the above conditions, or other urologic issues, please do not hesitate to contact me. The office telephone contact is [phone]. Sincerely, Dr Chau Lopez MD, [facility] - Urology Compassionate Specialist Care for the Genitourinary System Coding Level of Care Code New Pt Level 4 (16733) Diagnoses Low testosterone R79.89 Bladder outlet obstruction N32.0 Erectile dysfunction associated with type 2 diabetes mellitus E11.69; N52.1
--- OUTSIDE RECORDS SUMMARY | 2024-09-04 09:26 | XMS_ITS | Clinical Summary ---
Author Organization [facility] Address [phone] [place] [address] Care Team Providers Care Senior Policy Associate Name Role Phone Orin Joshi NP Primary Care Provider [phone] Allergies No known active allergies Medications Medication Sig Dispensed Refills Start Date End Date Status simvastatin (ZOCOR) 20 MG tablet Take 20 mg by mouth nightly. Active metformin HCl (METFORMIN ORAL) Take 500 tablets by mouth 2 (two) times a day. Active lisinopril (PRINIVIL,ZESTRIL) 10 MG tablet Take 10 mg by mouth daily. Active omega 2-haa-kay-fish oil 1,000 mg (120 mg-180 mg) Cap [...] Medical Devices Not on file Care Teams Senior Policy Associate Relationship Specialty Start Date End Date Orin Joshi NP [address] [place] [id number] PCP - General 11/26/20 Additional Source Comments The information contained in this document represents components of the legal health record. It is not the complete legal health record.[facility]
--- OUTSIDE RECORDS SUMMARY | 2024-09-04 09:26 | XMS_ITS | Data Portability ---
Author Organization [facility], [facility] Address [address] [place] [address] Care Team Providers Care Credit Negotiator Name Role Phone WANDY BABCOCK Pcat Instructor [phone] CAROLINA YANEZ Primary Care Provider AYDEE CLARKE Primary Care Provider EYE DR Human Development Professor [facility] Procurement Professional Assessment Encounter Date Assessment Date Assessment LastModified [...] Details Appointments LAB Follow-Up 2024 07:30A M [facility] Lab Not available Not available Not available Wellness Visit 30 05/21/ 2025 09:15A M Aydee Clarke, DIRECTOR OF INSTRUCTIONAL TECHNOLOGY Not available Not available Not available Lab HbA1c (hemoglob in A1c), blood 2022 024 [facility], [address], [place], [address], 08/09/2023 10:57:33 Referral gastroent erologist referral - per dentist as significa nt erosion of enamel 2022 023 [facility], [address] [place], [address], 09/28/2023 12:31:18 Procedures None recorded. Surgeries None recorded. Imaging XR, ribs, unilatera l - eval for fractured ribs, s/p fall on stone wall on L side [address] [facility] ([facility]), [address] , [place], [address], 11/02/2023 10:18:03 Medication Orders simvastat in 20 mg tablet 2023 024 [facility]acy #[id number], [address] [place], [address], 05/15/2024 08:59:23 metformin ER 500 mg tablet,ex tended release 24 hr 2023 024 [facility] #0818, [address] [place], [address], 05/15/2024 08:59:23 lisinopri l 10 mg tablet 2023 024 [facility]acy #0818, [address] [place], [address], 05/15/2024 08:59:22 [facility]rofen 800 [facility] tablet [facility] [address] [place], [address], 11/13/2023 10:26:24 lisinopri l 10 mg tablet 2023 024 [facility]acy #0818, [address] [place], [address], 11/13/2023 10:26:18 ibuprofen 800 mg tablet 2023 024 [facility]acy #0818, [address] [place], [address], 11/02/2023 08:27:07 sildenafi l 50 mg tablet 2022 023 [facility] [address] [place], [address], 11/13/2023 09:54:42 Patient TargetsNo targets recorded. Patient Instructions Encounter Date Encounter Id Patient Instructions Last Modified By Organization Details Last Modified Time 11/10/2022 [id number] high cholesterol lifestyle changes pkeough Not available 11/10/2022 09:18:51 Well Visit 50 to 65: Care Instructions pkeough Not available 11/10/2022 09:18:50 11/13/2023 [id number] high blood pressure: care instructions pkeough Not available 11/13/2023 10:26:16 learning about high blood pressure pkeough Not available 11/13/2023 10:26:16 05/15/2024 [id number] high blood pressure: care instructions pkeough Not available 05/15/2024 08:59:20 learning about high blood pressure pkeough Not available 05/15/2024 08:59:20 Reason for Referral Procurement Professional Referral for Erosion of teeth per dentist [...] er confi rmati on Not Available [address], [address], 11/02/2022 11:36:14 11/03/19 23 11/02/2022 HGB A1C estimated average glucose 137.0 mg/dL Not Available [address], [address], 11/02/2022 11:36:14 11/03/19 23 11/02/2022 BASIC METAB OLIC PANEL glucose 151 mg/dL 70-100 high Not Available [address], [address], 11/02/2022 15:34:56 11/03/19 23 11/02/2022 BASIC METAB OLIC PANEL BUN 17 mg/dL 7-18 Not Available [address], [address], 11/02/2022 15:34:56 11/03/19 23 11/02/2022 BASIC METAB OLIC PANEL creatinine 1.0 mg/dL 0.8-1. 3 Not Available [address], [address], 11/02/2022 15:34:56 11/03/19 23 11/02/2022 BASIC METAB OLIC PANEL B/C 17.0 ratio Not Available [address], [address], 11/02/2022 15:34:56 11/03/19 23 11/02/2022 BASIC METAB [...] be used in pregn babak. Not Available [address], [address], 11/02/2022 15:34:56 11/03/19 23 11/02/2022 BASIC METAB OLIC PANEL sodium 138 mmol/ L 136-14 5 Not Available [address], [address], 11/02/2022 15:34:56 11/03/19 23 11/02/2022 BASIC METAB OLIC PANEL potassium 4.3 mmol/ L 3.5-5. 1 Not Available [address], [address], 11/02/2022 15:34:56 11/03/19 23 11/02/2022 BASIC METAB OLIC PANEL chloride 102 mmol/ L 96-107 Not Available [address], [address], 11/02/2022 15:34:56 11/03/19 23 11/02/2022 BASIC METAB OLIC PANEL anion gap 9.2 5.0-15 .0 Not Available [address], [address], 11/02/2022 15:34:56 11/03/19 23 11/02/2022 BASIC METAB OLIC PANEL CO2 27 mmol/ L 21-32 Not Available [address], [address], 11/02/2022 15:34:56 11/03/19 23 11/02/2022 BASIC METAB OLIC PANEL calcium 8.9 mg/dL 8.5-10 .3 Not Available [address], [address], 11/02/2022 15:34:56 11/03/19 23 11/02/2022 LIPID PANEL cholesterol 143 mg/dL <200 mg/dl Sudhir able 200-2 39 mg/dl Borde rline High >240 mg/dl High Not Available [address], [address], 11/02/2022 15:34:57 11/03/19 23 11/02/2022 LIPID PANEL triglyceride s 317 mg/dL high <150 mg/dL Viki l 150-1 99 mg/dL Borde rline High 200-4 99 mg/dL High >500 mg/dL Very High Not Available [address], [address], 11/02/2022 15:34:57 11/03/19 23 11/02/2022 LIPID PANEL direct HDL 38 mg/dL <40 mg/dl - Major Risk for CHD >60 mg/dl - Negat berta Risk for CHD Not Available [address], [address], 11/02/2022 15:34:57 11/03/19 23 11/02/2022 DIREC T [...] r is not necmeaghan maisha. Not Available [address], [address], 11/02/2022 16:48:05 05/03/2005/03/2023 HGB A1C hemoglobin A1C [...] er confi rmati on Not Available [address], [address], 05/03/2023 12:05:19 05/03/2005/03/2023 HGB A1C estimated average glucose 157.1 mg/dL Not Available [address], [address], 05/03/2023 12:05:19 05/03/2005/03/2023 BASIC METAB OLIC PANEL glucose 173 mg/dL 70-100 high Not Available [address], [address], 05/03/2023 12:12:20 05/03/2005/03/2023 BASIC METAB OLIC PANEL BUN 17 mg/dL 7-18 Not Available [address], [address], 05/03/2023 12:12:20 05/03/2005/03/2023 BASIC METAB OLIC PANEL creatinine 1.0 mg/dL 0.8-1. 3 Not Available [address], [address], 05/03/2023 12:12:20 05/03/2005/03/2023 BASIC METAB OLIC PANEL B/C 17.0 ratio Not Available [address], [address], 05/03/2023 12:12:20 05/03/2005/03/2023 BASIC METAB OLIC PANEL [...] be used in pregn babak. Not Available [address], [address], 05/03/2023 12:12:20 05/03/2005/03/2023 BASIC METAB OLIC PANEL sodium 138 mmol/ L 136-14 5 Not Available [address], [address], 05/03/2023 12:12:20 05/03/2005/03/2023 BASIC METAB OLIC PANEL potassium 4.2 mmol/ L 3.5-5. 1 Not Available [address], [address], 05/03/2023 12:12:20 05/03/2005/03/2023 BASIC METAB OLIC PANEL chloride 102 mmol/ L 96-107 Not Available [address], [address], 05/03/2023 12:12:20 05/03/2005/03/2023 BASIC METAB OLIC PANEL anion gap 11.9 5.0-15 .0 Not Available [address], [address], 05/03/2023 12:12:20 05/03/2005/03/2023 BASIC METAB OLIC PANEL CO2 24 mmol/ L 21-32 Not Available [address], [address], 05/03/2023 12:12:20 05/03/20 23 05/03/2023 BASIC METAB OLIC PANEL calcium 9.0 mg/dL 8.5-10 .3 Not Available [address], [address], 05/03/2023 12:12:20 05/03/2005/03/2023 LIPID PANEL cholesterol 148 mg/dL <200 mg/dl Sudhir able 200-2 39 mg/dl Borde rline High >240 mg/dl High Not Available [address], [address], 05/03/2023 12:12:21 05/03/2005/03/2023 LIPID PANEL triglyceride s 323 mg/dL high <150 mg/dL Viki l 150-1 99 mg/dL Borde rline High 200-4 99 mg/dL High >500 mg/dL Very High Not Available [address], [address], 05/03/2023 12:12:21 05/03/2005/03/2023 LIPID PANEL direct HDL 42 mg/dL <40 mg/dl - Major Risk for CHD >60 mg/dl - Negat berta Risk for CHD Not Available [address], [address], 05/03/2023 12:12:21 05/03/20 23 05/03/2023 DIREC T [...] r is not terrimeaghan ferrera. Not Available [address], [address], 05/03/2023 14:38:05 05/03/20 23 05/03/2023 MICRO ALBUM IN/CR EATIN INE RATIO PANEL , URINE microalbumin 8.0 mg/L 1.3-20 .0 Not Available [address], [address], 05/03/2023 15:48:25 05/03/20 23 05/03/2023 MICRO ALBUM IN/CR EATIN INE RATIO PANEL , URINE creatinine urine 139.3 mg/dL 30.0-1 25.0 high Not Available [address], [address], 05/03/2023 15:48:25 05/03/20 23 05/03/2023 MICRO ALBUM IN/CR EATIN INE RATIO PANEL , URINE microalb/cre at ratio 5.7 mg/g_ creat 0.0-29 .0 Not Available [address], [address], 05/03/2023 15:48:25 08/09/19 24 08/09/2023 BASIC METAB OLIC PANEL glucose 168 mg/dL 70-100 high Not Available [address], [address], 08/09/2023 10:55:05 08/09/19 24 08/09/2023 BASIC METAB OLIC PANEL BUN 17 mg/dL 7-18 Not Available [address], [address], 08/09/2023 10:55:05 08/09/19 24 08/09/2023 BASIC METAB OLIC PANEL creatinine 1.1 mg/dL 0.8-1. 3 Not Available [address], [address], 08/09/2023 10:55:05 08/09/19 24 08/09/2023 BASIC METAB OLIC PANEL B/C 15.5 ratio Not Available [address], [address], 08/09/2023 10:55:05 08/09/19 24 08/09/2023 BASIC METAB [...] be used in pregn babak. Not Available [address], [address], 08/09/2023 10:55:05 08/09/19 24 08/09/2023 BASIC METAB OLIC PANEL sodium 139 mmol/ L 136-14 5 Not Available [address], [address], 08/09/2023 10:55:05 08/09/19 24 08/09/2023 BASIC METAB OLIC PANEL potassium 4.3 mmol/ L 3.5-5. 1 Not Available [address], [address], 08/09/2023 10:55:05 08/09/19 24 08/09/2023 BASIC METAB OLIC PANEL chloride 102 mmol/ L 96-107 Not Available [address], [address], 08/09/2023 10:55:05 08/09/19 24 08/09/2023 BASIC METAB OLIC PANEL anion gap 10.8 5.0-15 .0 Not Available [address], [address], 08/09/2023 10:55:05 08/09/19 24 08/09/2023 BASIC METAB OLIC PANEL CO2 26 mmol/ L 21-32 Not Available [address], [address], 08/09/2023 10:55:05 08/09/19 24 08/09/2023 BASIC METAB OLIC PANEL calcium 8.9 mg/dL 8.5-10 .3 Not Available [address], [address], 08/09/2023 10:55:05 08/09/19 24 08/09/2023 HGB A1C [...] er confi rmati on Not Available [address], [address], 08/09/2023 10:57:32 08/09/19 24 08/09/2023 HGB A1C estimated average glucose 157.1 mg/dL Not Available [address], [address], 08/09/2023 10:57:32 10/25/19 24 10/25/2023 HGB A1C [...] er confi rmati on Not Available [address], [address], 10/25/2023 11:15:39 10/25/19 24 10/25/2023 HGB A1C estimated average glucose 139.9 mg/dL Not Available [address], [address], 10/25/2023 11:15:39 10/25/19 24 10/25/2023 BASIC METAB OLIC PANEL glucose 149 mg/dL 70-100 high Not Available [address], [address], 10/25/2023 16:27:42 10/25/19 24 10/25/2023 BASIC METAB OLIC PANEL BUN 21 mg/dL 7-18 high Not Available [address], [address], 10/25/2023 16:27:42 10/25/19 24 10/25/2023 BASIC METAB OLIC PANEL creatinine 1.0 mg/dL 0.8-1. 3 Not Available [address], [address], 10/25/2023 16:27:42 10/25/19 24 10/25/2023 BASIC METAB OLIC PANEL B/C 21.0 ratio Not Available [address], [address], 10/25/2023 16:27:42 10/25/19 24 10/25/2023 BASIC METAB [...] be used in pregn babak. Not Available [address], [address], 10/25/2023 16:27:42 10/25/19 24 10/25/2023 BASIC METAB OLIC PANEL sodium 139 mmol/ L 136-14 5 Not Available [address], [address], 10/25/2023 16:27:42 10/25/19 24 10/25/2023 BASIC METAB OLIC PANEL potassium 4.4 mmol/ L 3.5-5. 1 Not Available [address], [address], 10/25/2023 16:27:42 10/25/19 24 10/25/2023 BASIC METAB OLIC PANEL chloride 101 mmol/ L 96-107 Not Available [address], [address], 10/25/2023 16:27:42 10/25/19 24 10/25/2023 BASIC METAB OLIC PANEL anion gap 12.9 5.0-15 .0 Not Available [address], [address], 10/25/2023 16:27:42 10/25/19 24 10/25/2023 BASIC METAB OLIC PANEL CO2 25 mmol/ L 21-32 Not Available [address], [address], 10/25/2023 16:27:42 10/25/19 24 10/25/2023 BASIC METAB OLIC PANEL calcium 9.1 mg/dL 8.5-10 .3 Not Available [address], [address], 10/25/2023 16:27:42 10/25/19 24 10/25/2023 LIPID PANEL cholesterol 113 mg/dL <200 mg/dl Sudhir able 200-2 39 mg/dl Borde rline High >240 mg/dl High Not Available [address], [address], 10/25/2023 16:27:43 10/25/19 24 10/25/2023 LIPID PANEL triglyceride s 205 mg/dL <150 mg/dL Viki l 150-1 99 mg/dL Borde rline High 200-4 99 mg/dL High >500 mg/dL Very High Not Available [address], [address], 10/25/2023 16:27:43 10/25/19 24 10/25/2023 LIPID PANEL direct HDL 42 mg/dL <40 mg/dl - Major Risk for CHD >60 mg/dl - Negat berta Risk for CHD Not Available [address], [address], 10/25/2023 16:27:43 10/25/19 24 10/25/2023 LDL - [...] r is not jose reddingy. Not Available [address], [address], 10/25/2023 16:27:44 10/25/19 24 10/26/2023 IMMUN OGLOB ULIN A immunoglobul in A 125 mg/dL 47-310 normal Not Available [facility] [address], [address], 10/26/2023 16:02:40 10/25/19 24 10/26/2023 TISSU E TRANS GLUTA SANDRINE E AB, IGA tissue transglutami nase Ab, IgA <1.0 U/mL normal Value Inter preta tion ----- ----- ----- ---- <15.0 Antib tobias not detec audelia > or = 15.0 Antib tobias detec audelia Not Available [facility] [address], [place], [address], 10/26/2023 16:02:41 01/02/20 24 01/02/2024 POC GLU POC glu 179 70 - 100 high Not Available [facility] [address] [place] [address], [address], 01/04/2024 09:10:15 05/08/20 24 05/08/2024 HGB A1C [...] er confi rmati on Not Available [address], [address], 05/08/2024 11:51:31 05/08/20 24 05/08/2024 HGB A1C estimated average glucose 151.3 mg/dL Not Available [address], [address], 05/08/2024 11:51:31 05/08/20 24 05/08/2024 MICRO ALBUM IN/CR EATIN INE RATIO PANEL , URINE microalbumin 21.0 mg/L 1.3-20 .0 high Not Available [address], [address], 05/08/2024 14:38:50 05/08/2005/08/2024 MICRO ALBUM IN/CR EATIN INE RATIO PANEL , URINE creatinine urine 121.7 mg/dL 30.0-1 25.0 Not Available [address], [address], 05/08/2024 14:38:50 05/08/20 24 05/08/2024 MICRO ALBUM IN/CR EATIN INE RATIO PANEL , URINE microalb/cre at ratio 17.3 mg/g_ creat 0.0-29 .0 Not Available [address], [address], 05/08/2024 14:38:50 05/08/20 24 05/09/2024 BASIC METAB OLIC PANEL glucose 182 mg/dL 70-100 high Not Available [address], [address], 05/09/2024 15:14:00 05/08/20 24 05/09/2024 BASIC METAB OLIC PANEL BUN 15 mg/dL 7-18 Not Available [address], [address], 05/09/2024 15:14:00 05/08/20 24 05/09/2024 BASIC METAB OLIC PANEL creatinine 1.1 mg/dL 0.8-1. 3 Not Available [address], [address], 05/09/2024 15:14:00 05/08/2005/09/2024 BASIC METAB OLIC PANEL B/C 13.6 ratio Not Available [address], [address], 05/09/2024 15:14:00 05/08/2005/09/2024 BASIC METAB OLIC PANEL [...] be used in pregn babak. Not Available [address], [address], 05/09/2024 15:14:00 05/08/20 24 05/09/2024 BASIC METAB OLIC PANEL sodium 140 mmol/ L 136-14 5 Not Available [address], [address], 05/09/2024 15:14:00 05/08/20 24 05/09/2024 BASIC METAB OLIC PANEL potassium 4.9 mmol/ L 3.5-5. 1 Not Available [address], [address], 05/09/2024 15:14:00 05/08/20 24 05/09/2024 BASIC METAB OLIC PANEL chloride 101 mmol/ L 96-107 Not Available [address], [address], 05/09/2024 15:14:00 05/08/20 24 05/09/2024 BASIC METAB OLIC PANEL anion gap 9.0 5.0-15 .0 Not Available [address], [address], 05/09/2024 15:14:00 05/08/20 24 05/09/2024 BASIC METAB OLIC PANEL CO2 30 mmol/ L 21-32 Not Available [address], [address], 05/09/2024 15:14:00 05/08/20 24 05/09/2024 BASIC METAB OLIC PANEL calcium 9.5 mg/dL 8.5-10 .3 Not Available [address], [address], 05/09/2024 15:14:00 11/02/19 24 11/02/2023 XR, ribs, unila teral CLINIC AL HISTOR Y: Left-s ided chest wall pain after a fall. Histor y of old fractu res. TECHNI QUE: At least 3 views of the left ribs are obtain ed. COMPAR SANDEE: 2020, 017 FINDIN GS: There are band nailer ior and latera l fractu res of the left fourth , fifth, sixth ribs. There are fractu re along the latera l aspect of the left sevent h, eighth and ninth ribs. There are fractu re of along the band nailer ior and beata latera l aspect s [...] e pneumo thorax or effusi on. IMPRES DORYS: Kaz us old rib fractu res. Interv al develo pment of left ninth, 10th and 11th rib fractu res which are diffic ult to date with confid ence. Clinic al correl ation recomm ended. Vinh everett Physic ana: Heladio Ibrahim ms [facility] ([facility]) [address] , [place], [address], 11/13/2023 10:06:59 Result Notes None recorded. Problems Name Problem SNOMED Code Status Onset Date Resolution Date Notes Provider Name and Address Organization Details Recorded Time Benign essential hypertensi on 6847439 Active Not Available [facility] 2 09:32:40 Neuropathy due to diabetes mellitus 020291927 Active Not Available [facility] 2 09:32:40 Alcohol dependence 48959830 Active 2015 Not Available [facility] 2 09:32:40 Amputated toe 882300277 Active 2018 Not Available [facility] 2 09:32:40 Obesity 611205208 Active 2021 Aydee Clarke NP [address] [place] [address], [address] , [facility] 2 09:06:14 Basal cell carcinoma of skin 274690640 Active 2021 Bina Chopra NP [address] [place] [address], [address] , [facility] 2 08:37:19 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 030762859 Active 2021 Aydee Clarke NP [address] [place] [address], [address] , [facility] 2 10:05:16 Mixed hyperlipid emia 545006633 Active 2006 Not Available [facility] 2 09:32:40 Injury of finger 59175089 Completed 200003/01/2012 Aydee Clarke NP [address] [place] [address], [address] , [facility] 6 10:22:10 Testicular hypofuncti on 737996344 Completed 200603/01/2012 Aydee Clarke NP [address] [place], [address] , [facility] 6 10:22:10 Essential hypertensi on 75220321 Completed 200003/01/2012 Aydee Clarke NP [address] [place] [address], [address] , [facility] 6 10:22:10 Diabetes mellitus 36177608 Completed 02/26/2014 Aydee Clarke NP [address] [place], [address] , [facility] 6 10:22:10 Type 2 diabetes mellitus without complicati on 832244324 Active 2006 Not Available [facility] 2 09:32:40 Insect bite to trunk - nonvenomou s 390799563 Completed 03/01/2012 Aydee Clarke NP [address] [place] [address], , [facility] 6 10:22:10 Benign essential hypertensi on 9191902 Completed 200603/01/2012 Aydee Clarke NP [address] [place] [address], [address] , [facility] 6 10:22:10 Atrial fibrillati on 90034005 Completed 03/01/2012 Aydee Clarke NP [address] [place] [address], [address] , [facility] 6 10:22:10 Morbid obesity 428860654 Completed 200603/01/2012 Aydee Clarke NP [address] [place] [address], [address] , [facility] 6 10:22:10 Open angle with borderline findings Active 2006 Not Available [facility] 2 09:32:40 Disorder of peripheral autonomic nervous system 629401299 Completed 03/01/2012 Aydee Clarke NP [address] [place], [address] , [facility] 6 10:22:10 Disorder of nervous system due to type 2 diabetes mellitus 587829123 Completed 200603/01/2012 Aydee Clarke NP [address] [place] [address], [address] , [facility] 6 10:22:10 Malaise and fatigue 049908572 Completed 200603/01/2012 Aydee Clarke NP [address] [place] [address], [address] , [facility] 6 10:22:10 Problem Notes None recorded. Procedures Surgical History Date Name Laterality Status Provider Name and Address Organization Details Recorded Time 2 Obesity counseling completed Aydee Clarke NP [address] [place] [address], [address], [facility] 11/03/2021 09:05:56 2 prevention-card iovascular risk reduction counseling completed Aydee Clarke NP [address] [place] [address], [address], [facility] 11/03/2021 09:05:36 1 Katiana - Colonoscopy completed Mynor Saab MD [address] [place] [address], [address], [facility] 11/26/2020 07:46:53 1 prevention-card iovascular risk reduction counseling completed Esther Melendez [facility] 10/28/2020 07:54:46 1 prevention-vianey al alcohol misuse screening completed Esther Melendez [facility] 10/28/2020 07:54:46 0 prevention-card iovascular risk reduction counseling completed Esther Melendez [facility] 05/13/2020 10:57:32 0 prevention-vianey al alcohol misuse screening completed Esther Melendez [facility] 05/13/2020 10:57:32 5 Destruction of skin lesion completed Montana Foreman III, MD [address] [place] [address], [address], [facility] 01/05/2015 10:59:27 Imaging Results Imaging Date Name Status [facility]Modified by [facility] Details LastModified Time 11/02/2023 XR, ribs, unilateral completed [facility] ([facility]) [address], [place], [address], 11/13/2023 10:06:59 Procedure Notes None recorded. Medical [...] 02/09 completed pt as stopped taking this ny 02-09-17 KB Not Available Not Available Not [...] Not Available Vitals Date Recorded Body height Heart rate Oxygen saturation Oxygen saturation in Arterial blood by Pulse oximetry Body mass index (BMI) Body weight Systolic blood pressure Diastolic blood pressure Provider Name and Address Organization Details Last Updated DateTime 3 168.28 cm 95 /min 97 % 97 % 30 kg/m2 48984.7 7 g 116 mm[Hg] 84 mm[Hg] [facility] 3 08:51:13 Date Recorded Body height Body mass index (BMI) Body weight Heart rate Systolic blood pressure Diastolic blood pressure Provider Name and Address Organization Details Last Updated DateTime 3 168.28 cm 30.4 kg/m2 57455.5 5 g 81 /min 114 mm[Hg] 73 mm[Hg] [facility] 3 09:28:45 Date Recorded Body height Body mass index (BMI) Body weight Heart rate Oxygen saturation Oxygen saturation in Arterial blood by Pulse oximetry Systolic blood pressure Diastolic blood pressure Provider Name and Address Organization Details Last Updated DateTime 4 168.28 cm 31.8 kg/m2 51416.6 9 g 105 /min 99 % 99 % 150 mm[Hg] 82 mm[Hg] Samantha Galindo CMA [facility] 4 08:15:04 Date Recorded Body height Body mass index (BMI) Body weight Oxygen saturation Oxygen saturation in Arterial blood by Pulse oximetry Heart rate Systolic blood pressure Diastolic blood pressure Systolic blood pressure Diastolic blood pressure Provider Name and Address Organization Details Last Updated DateTime 4 168.28 cm 31.1 kg/m2 55504.9 2 g 100 % 100 % 88 /min 125 mm[Hg] 84 mm[Hg] 133 mm[Hg] 74 mm[Hg] Adrián Worthington [facility] 4 11:24:46 Date Recorded Body height Body mass index (BMI) Body weight Oxygen saturation Oxygen saturation in Arterial blood by Pulse oximetry Heart rate Systolic blood pressure Diastolic blood pressure Provider Name and Address Organization Details Last Updated DateTime 4 168.28 cm 30.1 kg/m2 76281.3 7 g 97 % 97 % 77 /min 104 mm[Hg] 62 mm[Hg] Adrián Worthington [facility] 4 08:26:48 Social History Question Answer Notes LastModified by Organizat ion Details LastModified Time Tobacco Smoking Status Never Smoker checked 05-15-24 Adrián Worthington [facility] 05/15/2024 08:27:56 What Is Your Level Of Alcohol Consumption? Moderate 5 Days A Week- 4 Shot Glasses A Day Vodka [email or web address] Information not available 05/15/2024 Do You Wear A Helmet When Biking? Yes [email or web address] Information not available 06/24/2015 What Is Your Level Of Caffeine Consumption? None [email or web address] Information not available 05/13/2020 How Much Tobacco Do You Chew? None Information not available 12/31/2012 What Type Of Diet Are You Following? REGULAR [email or web address] Information not available 06/24/2015 Which Illicit Or Recreational Drugs Have You Used? No Denies IVDU Information not available 01/15/2018 Do You Or Have You Ever Used E-cigarettes Or Vape? 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 0 Information not available 12/31/2012 Are There Any Guns Present In Your Home? No [email or web address] Information not available 06/24/2015 Live Alone Or With Others? With Others [email or web address] Information not available 06/08/2011 Patient Has Health Care Proxy Signed And In Chart Yes etienne Information not available 11/14/2022 Marital Status [email or web address] Informatio n not available 03/01/2012 Mosquito Repellent Used Routinely Yes Information not available 01/15/2018 What Was The Date Of Your Most Recent Tobacco Screening? 05/11/2022 05/11/22 CJ [email or web address] Information not available 05/11/2022 How Many Children Do You Have? 0 [email or web address] Information not available 06/08/2011 Seat Belts Used Routinely Yes [email or web address] Information not available 06/24/2015 Smoke Alarm In Home Yes [email or web address] Information not available 06/24/2015 Do You Or Have You Ever Used Smokeless Tobacco? Never Used Smokeless Tobacco 10/28/2019 TG [email or web address] Information not available 10/28/2019 How Much Tobacco Do You Smoke? No 05/11/22 CJ [email or web address] Information not available 05/11/2022 What Types Of Sporting Activities Do You Participate In? No Information not available 01/15/2018 General Stress Level Low [email or web address] Information not available 06/24/2015 Do You Use Sunscreen Routinely? Yes [email or web address] Information not available 06/24/2015 How Many Years Have You Smoked Tobacco? 0 [email or web address] Information not available 10/28/2019 Sex: Male Functional Status None recorded. Mental Status None recorded. Family History Relationship Description Onset Age of this Age Resolved Age Notes LastModified by Organization Details LastModified Time Father Alcoholism pkeough Not availabl e 12/01/2015 10:23:38 Brother Asthma 32 acute asthma attack pkeough Not available 12/01/2015 10:23:38 Brother Opioid dependence 32 OD in [facility] p[facility] Not available 12/01/2015 10:23:38 Notes:Father-ETOH [...] Recorded Time Tdap 007 completed Not Available [facility] 06/07/2011 05:21:29 Tdap 007 completed Not Available [facility] 06/07/2011 05:21:29 pneumococcal polysaccharide PPV23 009 completed Not Available [facility] 08/09/2019 02:38:00 Td (adult), 2 Lf tetanus toxoid, preservative free, adsorbed 018 completed Not Available [facility] 08/09/2019 02:22:36 Influenza, split virus, quadrivalent, PF 022 cancelled patient objection Carolina Yanez D.O. [address] [place] [address], [phone], [facility] 05/11/2022 11:18:26 Influenza, split virus, quadrivalent, PF 023 cancelled patient objection Nikole Pandya. [address] [place] [address], [phone], [facility] 05/13/2023 15:47:02 COVID-19, mRNA, LNP-S, PF, 30 mcg/0.3 mL dose 021 completed Esther Melendez CMA null, [facility] 06/03/2021 14:14:02 COVID-19, mRNA, LNP-S, PF, 30 mcg/0.3 mL dose 021 completed BLAINE Vance, [facility] 06/03/2021 14:14:12 COVID-19, mRNA, LNP-S, PF, 100 mcg/0.5mL dose or 50 mcg/0.25mL dose 022 completed JUAN Alvarez, [facility] 08/22/2021 14:21:46 Past Encounters Encounter ID Performer Location Encounter Start Date Encounter Closed Date Diagnosis/Indication Diagnosis SNOMED-CT Code Diagnosis ICD10 Code Diagnosis Note [id number] RENU [facility], OFFICE [address] [place] [id number] 08/28/2000 11:45:00 08/12/2008 02:02:29 [id number] R[facility], OFFICE [address] [place] [id number] 09/07/2006 09:25:16 09/07/2006 13:17:47 [id number] [facility] [address] [place] [address] 09/27/2006 09:47:41 09/27/2006 09:47:45 [id number] Eye Care, [facility] [place] [address] 09/27/2006 10:01:46 09/27/2006 11:52:26 [id number] Eye Care, [facility] [place] [address] 10/15/2006 14:29:42 10/15/2006 17:10:27 [id number] [facility], OFFICE [address] [place] [id number] 10/17/2006 08:03:38 10/17/2006 09:08:25 [id number] [facility], OFFICE [address] [place] [address] 01/09/2007 12:05:24 01/09/2007 14:30:41 [id number] [facility] [place] [address] 01/10/2007 07:28:27 01/10/2007 07:28:32 [id number] [facility] [address] [place] [address] 01/11/2007 08:57:27 01/11/2007 08:57:35 [id number] [facility] OFFICE [address] [place] [id number] 02/01/2007 08:12:35 02/01/2007 10:48:02 [id number] [facility] [place] [address] 06/11/2007 07:56:03 06/11/2007 07:56:12 [id number] R[facility], OFFICE [address] [place] [address] 06/25/2007 09:01:34 08/12/2008 02:02:29 [id number] Podiatry, [facility] [place] [address] 07/09/2007 09:05:27 07/10/2007 09:23:03 [id number] LAB - [facility] [place] [address] 11/19/2007 10:32:30 11/19/2007 10:32:45 [id number] [facility], OFFICE [address] [place] [address] 05/12/2009 10:30:12 05/13/2009 08:35:11 [id number] [facility], OFFICE [address] [place] [address] 06/09/2009 14:41:02 06/10/2009 09:44:59 [id number] Endocrino logy, [facility] [place] [address] 06/23/2009 08:26:26 06/24/2009 09:26:23 [id number] Endocrino logy, [facility] [place] [address] 1 08/19/2009 09:27:35 08/19/2009 14:10:39 [id number] Endocrino logy, [facility] [place] [address] 1 11/18/2009 09:29:15 11/18/2009 10:41:01 [id number] [facility], OFFICE [address] [place] [address] 09/20/2010 12:01:55 09/20/2010 16:23:51 [id number] [facility], [place] [address] 06/21/2011 09:53:16 06/21/2011 10:13:02 [id number] [facility], OFFICE [address] [place] [address] [place] [address] 01/23/2012 08:10:14 01/23/2012 09:04:59 [id number] [facility], [address] [place] [address] 03/01/2012 08:33:47 03/01/2012 09:08:14 [id number] Dorina SEARS [facility], OFFICE [address] [place] [address] [place] [address] 12/31/2012 11:03:27 01/01/2013 07:35:53 [id number] Jessica Reynadenisevargas oscar , [facility], OFFICE [address] [place] [address] 1 05/19/2013 09:39:48 05/19/2013 09:56:44 Nonvenomous insect bite of multiple sites [id number] Amifernanda Ledesma , [facility], OFFICE [address] [place] [address] 08/28/2013 15:02:43 08/28/2013 15:25:22 Benign essential hypertension 7230763 continue to work on diet ,exercisea nd lowering salt intake as discussed Mixed hyperlipidemia 665044572 continue to work on diet and exercise as discussed Adult heal th examination [id number] see Risk Assessment and Lifestyle Change Counseling section above Counseling [id number] Type 2 nora betes mellitus without complication 045650407 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 005598614 Disorder o f nervous system due to type 2 diabetes mellitus 835018215 [id number] Rosi Reyes , [facility], OFFICE [address] [place] [address] 02/26/2014 09:23:19 02/26/2014 09:55:23 Benign essential hypertension 9309692 continue to work on diet ,exercisea nd lowering salt intake as discussed Mixed hyperlipidemia 894426819 continue to work on diet and exercise as discussed Disorder o f nervous system due to type 2 diabetes mellitus 704692631 Foot neuropathy Neoplasm of skin 511129541 [id number] Montana Foreman III, MD , [facility], OFFICE [address] [place] [address] 01/05/2015 10:38:43 01/05/2015 10:57:32 Benign essential hypertension 3349225 continue to work on diet, exercise, and lowering salt intake as discussed Mixed hyperlipidemia 752267344 continue to work on diet and exercise as discussed Cholestero l is at goal Type 2 nora betes mellitus without complication 323736253 Actinic keratosis 528362560 Right shoulder x 2 [id number] Pilar Church MA , [facility], OFFICE [address] [place] [address] 02/23/2015 09:02:42 02/23/2015 09:28:05 Paronychia of toe 440154615 Diabetes mellitus 46826664 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 312980202 [id number] PABLO Sommers, [facility], OFFICE [address] [place] [address] 02/25/2015 09:28:28 02/25/2015 10:08:25 Paronychia of toe 967701610 Diabetes mellitus 18679419 Cellulitis of toe 80997924 [id number] JUAN Lewis, [facility], OFFICE [address] [place] [address] 02/26/2015 09:13:35 02/26/2015 09:42:40 Cellulitis of toe 24914158 Paronychia of toe 342461073 Diabetes mellitus 86451179 [id number] Aydee Clarke NP , [facility], OFFICE [address] [place] [address] 03/01/2015 09:16:53 03/01/2015 09:27:47 Cellulitis of toe 07619308 resolving will finish remaining 3 days of Bactrim DS bid. Again reviewed sxs of infection and will rto if they reoccur. [id number] Aydee Clarke NP , [facility], OFFICE [address] [place] [address] 06/24/2015 08:26:01 06/24/2015 09:06:08 Type 2 diabetes mellitus without complication 869438523 E11.9 A1C not at goal of <7.0 Up significan tly from December will increase metformin ER to 1000 mg bid will decrease ETOH, sugar drinks repeat labs 3 months- OV Mixed hyperlipidemia 267 489817 E78.2 Trigs are not at goal Will c/w omega fish oil 4000 mg qd will decrease ETOH and sugary drinks Continue to work on diet and exercise as discussed repeat labs 3 months and f/u OV Benign ess ential hypertension 9393914 I10 Blood pressure at goal . continue to work on diet, exercise, and lowering salt intake as discussed Adult [facility] th examination 786487289 Z00.00 see Risk Assessment and Lifestyle Change Counseling section above HM: Labs UTD Declines flu shot Counseling 378092316 Z71 .9 Alcohol dependence 20488 003 F10.20 discussed reducing ETOH intake discussed impact on blood sugar and triglyceri vi Shoulder pain 35443306 M 25.512 ? impingemen t will try 3-5 days of NSAIDs, alternate heat and ice will call if he reconsider PT Neuropathy due to diabetes mellitus 668264933 E11.40 stable discussed importance of checking feet regularly. [id number] Marcie Washington , [facility], OFFICE [address] [place] [address] 12/01/2015 09:44:27 12/01/2015 10:33:57 Type 2 diabetes mellitus without complication 505372804 E11.9 A1C at goal of <7.0 at 5.0 will c/w increase metformin 1000 mg bid c/w glyburide 2.5 mg qd discussed working on diet, ETOH reduction will repeat in 3 months to check for stability OV 6 months Mixed hyperlipidemia 267 795651 E78.2 Trigs much improved down from 699 to 158! great job Will c/w omega fish oil 4000 mg qd will decrease ETOH and sugary drinks Continue to work on diet and exercise as discussed repeat labs 3 months and f/u OV 6 months Benign ess ential hypertension 9808561 I10 Blood pressure at goal . 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 Adjustment disorder 1722 6007 F43.23 dealing with loss of 32 brother (OD) as well taking care of Mom [id number] Jarocho Browne MD , [facility], [address]ICE [address] [place] [address] 01/25/2016 09:18:19 01/25/2016 10:06:23 Infection of toe 241250168 L08.9 in diabetic with neuropathy i informed him that this was a serious infection for him and that we must be observant augmentin for 12 days.he will rto for non response after 48 hrs, or for progressio n or onset fever Neuropathy due to diabetes mellitus 137546366 E11.40 [id number] Aydee Clarke NP , [facility], OFF[address] [place] [address] 06/28/2016 09:35:15 06/29/2016 09:39:46 Benign essential hypertension 0054349 I10 BP at goalc/w meds Neuropathy due to diabetes mellitus 391985634 E11.40 abn but stable discussed importance of checking feet regularly. Mixed hyperlipidemia 267 300714 E78.2 Trigs up from 158 to 388will c/w fish oildiscuss ed importance of ETOH reduction Type 2 nora betes mellitus without complication 180668615 E11.9 A1C very good at 5.7will get meter d/t ? of low blood sugarsIf getting lows discussed potentiall y reducing glyburideR F on med today Adult heal th examination 705136928 Z00.00 see Risk Assessment and Lifestyle Change Counseling section aboveHM: declines flu shot Counseling 920714188 Z71 .9 Alcohol dependence 11682 003 F10.20 discussed reducing ETOH intake- has not reduced discussed impact on blood sugar and triglyceri vi lhoping new job (no longer at [employer]) will help reduce [id number] Bina Chopra NP , [facility], [address] [place] [address] 10/10/2016 08:00:49 10/12/2016 15:46:30 Injury of ribs 778555894 S29.9XXA Alcohol dependence 77347 003 F10.20 Type 2 nora betes mellitus without complication 757055750 E11.9 [id number] Aydee Clarke NP , [facility], [address]ICE [address] [place] [address] 01/09/2017 07:57:33 01/10/2017 09:04:13 Benign essential hypertension 5309085 I10 Blood pressure at goal of <140/90c/w lisinopril BMP utd wnl Mixed hyperlipidemia 267 901357 E78.2 LDL at goal of <100c/w simvastati ncontinue to work on diet and exercise as discussed Type 2 nora betes mellitus without complication 220011112 E11.9 A1C 5.0 with Goal <6.5doing well with more activity d/t jobno med changesmay consider reducing if c/w low A1Crto 6 months for PHA Neuropathy due to diabetes mellitus 358131850 E11.40 abn but stable discussed importance of checking feet regularly. Alcohol dependence 14898 003 F10.20 has reduced amount of ETOHonly on weekends and occasional during week Obesity 315877934 E66.9 BMI 30has lost weight- 8 lbs since Junec/ w regular activity [id number] Carolina Yanez D.O. 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 to d/c glyburide and CUT DOWN metformin to 1000 mg once dailywill recheck HbA1c in Jun [id number] Lety Matthew , [facility], [address] [place] [address] 01/15/2018 10:28:34 01/15/2018 11:35:54 Type 2 diabetes mellitus without complication 749779765 E11.9 A1C 5.9 with Goal <6.5doing well with more activity d/t jobno med changesmay consider reducing if c/w low A1Crto 6 months for PHA Alcohol dependence 90224 003 F10.20 stable with slight decrease per pt3-4 drinks 5 x week Benign ess ential hypertension 3308804 I10 Blood pressure at goal of <140/90c/w lisinopril BMP utd wnl Neuropathy due to diabetes mellitus 882834049 E11.40 abn but stable discussed importance of checking feet regularly. Mixed hyperlipidemia 267 514665 E78.2 LDL at goal of <100c/w simvastati ncontinue to work on diet and exercise as discussed Active or passive immunization 715830654 Z23 Diabetic foot ulcer 3710 18497 E11.40 R foot 2nd toe with cellulitis will get xrayget bactrim DS bid x [address] Wang for wound care. [id number] Mitesh Cheng DPM Podiatry, [address] [place] [address] 01/30/2018 11:02:26 01/30/2018 14:26:05 Acute osteomyelitis of phalanx of toe 709602037 M86.179 Reviewed right foot xray notable for [...] post op day 0. Pain in toe 698055872 M7 9.674 Ulcer of toe 697370426 L 97.238 [id number] Carolina Yanez D.O. , [facility], [address]ICE [address] [place] [address] 01/30/2018 15:50:18 01/30/2018 18:24:23 Pre-surgery evaluation 096395043 Z01.818 ekg wnlThe patient is a low risk for perioperat berta cardiovasc ular complicati ons, and may proceed with surgery. Acute oste omyelitis of phalanx of toe 546960119 M86.179 R 2nd toe Benign ess ential hypertension 2711081 I10 Blood pressure at goal of <140/90c/w lisinopril BMP utd wnl Alcohol dependence 49343 003 F10.20 stable with slight decrease per pt3-4 drinks 5 x week [id number] Mitesh Cheng DPM Podiatry, [address] [address] 02/12/2018 10:26:41 02/12/2018 11:12:01 Acute osteomyelitis of phalanx of toe 088378929 M86.179 Reviewed right foot xray notable for erosions of distal aspect of distal phalanx s/p partial amputation of toe. Rx for augmentin sent to pharmacy for 10 day course. Dressing changed. Pain in toe 607613633 M7 9.674 will remove sutures in 1 week. [id number] Mitesh Cheng DPM Podiatry, [address] [address] 02/19/2018 08:51:40 02/19/2018 09:26:45 Acute osteomyelitis of phalanx of toe 875019089 M86.179 Reviewed right foot xray notable for erosions of distal aspect of distal phalanx s/p partial amputation of toe. Pain in toe 105541957 M7 9.674 Sutures removed today. Scab overlying incision removed and site bleeding area identified . Area was cleansed then new dressing was applied to the toe. Pt instructed to take abx to completion . Also to keep toe covered with gauze after daily dressing changes until area is healed up. RTC 2 weeks to re-eval. Ok to return to work tomorrow. [id number] Mitesh Cheng DPM Podiatry, [address] [address] 03/05/2018 08:38:01 03/07/2018 14:19:36 Acute osteomyelitis of phalanx of toe 281274549 M86.179 Reviewed right foot xray notable for erosions of distal aspect of distal phalanx s/p partial amputation of toe. Resolved, patient with clean margins. Pain in toe 106441307 M7 9.674 Right 2nd toe wound all healed up now. Pt ok to get toe wet. Counceled on need for diabetic shoes with custom insoles, as he will need wide width and extra depth shoe to accomodate toe deformitie s. RTC 3 months to re-eval. [id number] Mitesh Cheng DPM Podiatry, [address] [address] 05/07/2018 09:13:31 05/07/2018 09:50:36 Pain in toe 147068618 M79.674 Counseled on need for diabetic shoes with custom insoles, as he will need wide width and extra depth shoe to accomodate toe deformitie s. Orthotics agreement form was completed and signed today. Pt given a copy. We will check with her insurance about coverage. Patient is aware of cost. Cellulitis of toe 934991 04 L03.031 Ulcer of toe 833371447 L 97.509 Verbal consent was obtained. Right [...] in counseling and coordinati on of care. [id number] Mitesh Cheng DPM Podiatry, [address] [address] 05/21/2018 08:45:10 05/21/2018 16:20:21 Pain in toe 133926602 M79.674 Counseled on need for diabetic shoes [...] then sent to [facility] for fabricatio n. Specificat ions: full length, 45 jeff, flexible, cute wide, toe filler for right 2nd toe amputation .I spent 15 mins face to face with patient, more 50% spent in counseling and coordinati on of care. Cellulitis of toe 721181 04 L03.031 resolved Ulcer of toe 756982253 L 97.509 Verbal consent was obtained. Right [...] in counseling and coordinati on of care. [id number] Mitesh Cheng DPM Podiatry, [facility] [address] [place] [address] 07/09/2018 09:09:03 07/10/2018 08:20:30 Pain in toe 671766753 M79.674 Pt was informed that breaking into fulltime wear of custom made functional foot orthotic devices should occur over a period of 10 to 14 days. On the day of sampler pickup the orthotic devices, wear them for 1 [...] coordinati on of care. Cellulitis of toe 482079 04 L03.031 resolved Ulcer of toe 543524162 L 97.509 Verbal consent was obtained. Right 4th toe prepped and sterile instrument ation used to unroof blister draining serous drainage. Wound was dressed wtih betadine and dsd. Pt was given instructio ns to dress it accordingl y each day. Rx for abx sent to pharmacy. RTC 2 weeks. Not to get foot wet. [id number] Aydee Clarke NP , [facility], OFFICE [address] [place] [address] 09/06/2018 14:25:20 09/06/2018 15:02:23 Adult health examination 976617624 Z00.00 see Risk Assessment and Lifestyle Change Counseling section aboveHM: labs utdcolonos copy due Counseling 851270387 Z71 .9 Depression screening 171 582350 Z13.89 1 out of 27depressi on screening tool administer ed, entered into emr, scored and discussed, time greater than 7.5 minutes Mixed hyperlipidemia 267 654313 E78.2 LDL at goal of <100c/w simvastati ncontinue to work on diet and exercise as discussed Benign ess ential hypertension 6917511 I10 BP at goal c/w lisinopril continue to work on diet, exercise, and lowering salt intake as discussed Type 2 nora betes mellitus without complication 265782339 E11.9 A1C 5.7 with Goal <6.5still high fasting bs at 157advised to reduce ETOH particular ly shots doing well with more activity d/t jobno med changesmay consider reducing if c/w low A1Crto 6 months for PHA Alcohol dependence 02341 003 F10.20 3-4 everyday after workis doing shotsadvis ed to reduce- pt agrees Neuropathy due to diabetes mellitus 666212056 E11.40 abn but stable discussed importance of checking feet regularly. Screening for malignant neoplasm of colon 483681913 Z12.11 Referral for a DIRECT booked colonoscop y. This patient is a healthy ASA Class 1 or 2 patient (only mild systemic disease), or a STABLE, well controlled insulin dependent diabetic. They do not have serious cardiac disease ie WI/angiopl asty within 1 year, symptomati c CHF; renal failure with CKD 4 or 5; take Coumadin, Plavix, Aggrenox, etc. Amputated toe 172580107 Z89.429 R 2nd toecheck feet daily [id number] Aydee Clarke NP , [facility], OFFICE [address] [place] [address] 03/10/2019 15:51:01 03/10/2019 16:23:56 Mixed hyperlipidemia 381263164 E78.2 LDL at goal of <100c/w simvastati ncontinue to work on diet and exercise as discussed Screening for malignant neoplasm of colon 686899264 Z12.11 Referral for a [employer] booked colonoscop y. This patient is a healthy ASA Class 1 or 2 patient (only mild systemic disease), or a STABLE, well controlled insulin dependent diabetic. They do not have serious cardiac disease ie WI/angiopl asty within 1 year, symptomati c CHF; renal failure with CKD 4 or 5; take Coumadin, Plavix, Aggrenox, etc. Neuropathy due to diabetes mellitus 930029591 E11.40 abn but stable discussed importance of checking feet regularly. no open toe shoesneed to protect feet Amputated toe 835945953 Z89.429 R 2nd toecheck feet daily Benign ess ential hypertension 0224664 I10 BP at goal c/w lisinopril continue to work on diet, exercise, and lowering salt intake as discussed Disorder o f nervous system due to type 2 diabetes mellitus 011176949 E11.49 DM is fzjkyvl6x 5.8 which is great- at goaldiscus sed importance of foot carealread y had 1 amputation injury to L great toe- no open toe shoes Obesity 300964035 E66.9 BMI 30.5c/w low fat, low carb diet c/w regular activity Injury of toe 291752933 S99.922A likely paronychia of L great toeInterdi git is red, swollen with some warmthno painhx of osteomyeli tis with amputation xray todaystart keflex 500 mg tid x 7 days. Cramp in l ower limb associated with sleep 1562107313 82567 G47.62 advised increasing potassium with banana, sweet potatoeske ep hydrated with electrolyt estry diet tonic prior to bed [id number] Nikole Gaviotaushtari . MD SEASR, [facility], [address] [place] [address] 10/28/2019 08:30:56 10/28/2019 15:14:19 Low back pain [id number] M54.5 Low back strain, no alarming symptoms. Will treat with ice, muscle relaxers and NSAIDs. Do not take ibuprofen with meloxicam. Call us with any new neurologic symptoms. 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 [id number] PABLO Sommers, [facility], [place] [address] [place] [address] 05/13/2020 10:57:05 05/14/2020 11:47:45 Adult health examination 382180912 Z00.00 see Risk Assessment and Lifestyle Change Counseling section aboveHM: labs utdcolonos copy due Counseling 040169325 Z71 .9 including cardiovasc ular risk reduction counseling Depression screening 171 217569 Z13.89 0 out of 27 phq 9mood is gooddepres dorys screening tool administer ed, entered into emr, scored and discussed, time greater than 7.5 minutes Screening for alcohol abuse 718209301 Z13.39 + auditwill work on decreasein g Amputated toe 048580247 Z89.429 R 2nd toecheck feet daily Type 2 nora betes mellitus without complication 369292405 E11.9 A1C 6.3 up from 5.8 but at Goal <6.5advise d to reduce ETOH particular ly shots doing well with more activity d/t jobno med changesrto 6 months for MM Alcohol dependence 61352 003 F10.20 Audit 43-4 everyday after work - drinking more with covid and less to do at nightis doing shotsadvis ed to reduce- pt agrees Mixed hyperlipidemia 267 363578 E78.2 Cholestero l is at goal LDL is 46Trigs are high at 281- will work on diet and less etoh Continue to work on diet and exercise as discussed Essential hypertension 90088193 I10 cannot check bpwill have him come in for bp checkif not at goal of < 130/80 will increase lisinopril to 20 mg [id number] Aydee Clarke NP , [facility], OFFICE [address] [place] [address] 05/27/2020 09:04:01 05/28/2020 15:26:35 [id number] Carolina Yanez D.O. , [facility], OFFICE [address] [place] [address] 10/28/2020 07:51:21 11/19/2020 16:22:56 Essential hypertension 21250257 I10 cannot check bpwill have him come in for bp checkif not at goal of < 130/80 will increase lisinopril to 20 mg Adult heal th examination 645990688 Z00.00 see Risk Assessment and Lifestyle Change Counseling section above HM: labs utd colonoscop y due Counseling 740041728 Z71 .9 including cardiovasc ular risk reduction counseling Screening for alcohol abuse 074133880 Z13.39 + auditwill work on decreasein g Mixed hyperlipidemia 267 987322 E78.2 Cholestero l is at goal LDL is 50 Trigs are high at 472- will work on diet and less etoh Continue to work on diet and exercise as discussed Amputated toe 137949995 Z89.429 R 2nd toecheck feet daily Type 2 nora betes mellitus without complication 066688526 E11.9 A1C 6.1 at Goal <6.5 advised to reduce ETOH doing well with more activity d/t job no med changes rto 6 months for MM Alcohol dependence 16271 003 F10.20 Audit 7 more with pandemic 3-4 everyday after work - drinking more with covid and less to do at night is doing shots advised to reduce- pt agrees Neuropathy due to diabetes mellitus 875227348 E11.40 abn but stable discussed importance of checking feet regularly. no open toe shoesneed to protect feet [id number] Dorina Zaman RN , [facility], OFFICE [address] [place] [address] 11/18/2020 08:16:03 11/19/2020 16:14:08 [id number] Yolette Ortiz RN [facility], [facility] [address] [place] [address] 11/26/2020 06:44:42 11/26/2020 12:47:20 [id number] Nikole Pandya . , [facility], [address] [place] [address] 06/03/2021 14:03:53 06/03/2021 14:47:31 Low back pain 837132269 M54.50 acute low back pain x 4 hoursNo Red FlagsCan use heat/ice to see if its helpfulMot rin for pain as neededTria l muscle relaxants for spasmsAdvi sed if no improvemen t over the next couple of weeks to f/u for PT referral Benign ess ential hypertension 1370389 I10 BP at goalBP goal < 130/80labs up to date [id number] Jarocho Browne MD , [facility], [address] [place] [address] 06/13/2021 08:59:47 06/13/2021 09:45:05 Rib pain 001913533 R07.81 fall to a raised corner of a deck yesterdayn ow with positional muscular pain Left Ant chest wall and axilla. wincingly tender qukj3co rib mid axillary line although no ecchymosis or wound is visibleL CTA he has experience d rib injuries before, so understand s duration of activity limiting pain with leftarm and truncal movementsr ec ibuprofen' image fo rproignost ics [id number] Aydee Clarke NP , [facility], [address]ICE [address] [place] [address] 11/03/2021 08:30:54 11/03/2021 09:02:37 Adult health examination 076354325 Z00.00 see Risk Assessment and Lifestyle Change Counseling section above HM: labs utd colonoscop y 11/26/2020 W/ 5 YR REPEATEYE EXAM 10/23/2020- WILL SCHEDULE Counseling 641230808 Z71 .9 including cardioascu lar risk reduction counseling Depression screening 171 040343 Z13.31 neg phq 9depressio n screening tool administer ed, entered into emr, scored and discussed, time greater than 7.5 minutes Screening for alcohol abuse 278428805 Z13.39 + auditwill work on decreasein g Amputated toe 401774605 Z89.429 R 2nd toecheck feet daily Alcohol dependence 44250 003 F10.20 Audit 7 more with pandemic and loss of dog 3-4 2x week and then on weekends advised to reduce- pt agrees Essential hypertension 31439856 I10 Bp not at goal of < 130/80 but just aboveno med changes Neuropathy due to diabetes mellitus 467364118 E11.40 A1C 6,4- sugars stablec/w metformin 1500 mg qdabn but stable discussed importance of checking feet regularly. no open toe shoesneed to protect feet Mixed hyperlipidemia 267 315729 E78.2 Cholestero l is at goal LDL is 45 Trigs are better 222 Continue to work on diet and exercise as discussed Obesity 984446405 E66.9 BMI 30.6keep low fat, low carb dietc/w regular activity [id number] Carolina SEARS, [facility], OFFICE [address] [place], [place] [address] 05/11/2022 09:14:18 05/11/2022 09:53:17 Essential hypertension 36739567 I10 Bp at goal of < 130/80no med changesf/u 3 mos Mixed hyperlipidemia 267 923610 E78.2 Cholestero l is at goal LDL is 45 Trigs 371- will work on better diet Continue to work on diet and exercise as discussed Amputated toe 238052540 Z89.429 R 2nd toecheck feet daily Obesity 453758459 E66.9 BMI 30.6keep low fat, low carb dietc/w regular activity Alcohol dependence 85116 003 F10.20 more with pandemic and loss of dog but had returned to baseline 3-4 2x week Neuropathy due to diabetes mellitus 181636669 E11.40 A1C 6.6 - slight increase from previous but overall sugars stablec/w metformin 1500 mg qdabn but stable discussed importance of checking feet regularly. 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 Genesis Coats [id number] Aydee Clarke NP , [facility], [address] [place] [address] 11/10/2022 08:27:54 11/10/2022 09:18:34 Adult health examination 876549826 Z00.00 see Risk Assessment and Lifestyle Change Counseling section above HM: labs utd colonoscop y 11/26/2020 W/ 5 YR REPEATEYE EXAM 10/23/2020- WILL SCHEDULE Depression screening 171 253956 Z13.31 depression screening tool administer edneg phq 9 Screening for alcohol abuse 827896696 Z13.39 Alcohol use screening tool administer edaudit 55 days a week- more on weekends. 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 no open toe shoesneed to protect feet Primary er ectile dysfunction 754381556 N52.9 Disorder o f nervous system due to type 2 diabetes mellitus 613890591 E11.49 A1C 6.4 -c/w metformin 1500 mg qdfully abn foot exam but stable discussed importance of checking feet regularly. no open toe shoesneed to protect feet [id number] Nikole Shoushtari . 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, etohwill repeat a1c 3 mos [id number] Yani Villegas RN Endoscopy , [facility] [address] [facility] [place] [address] 01/02/2024 06:45:56 01/02/2024 10:51:16 [id number] Junie Parekh MD , [facility], OFFICE [address] [place] [address] 11/02/2023 08:07:58 11/02/2023 10:18:03 Rib pain 093490924 R07.81 Acute L rib pain s/p tripping on broken stairs and falling on L side on stone wall, 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 452269732 E11.3299 mild OUutd on exam 04/2023fol lowed by [facility] l get exam notes Type 2 nora betes mellitus without complication 764950964 E11.9 A1C 6.5 at Goal <6.5 advised to reduce ETOH doing well with more activity d/t job no med changes rto 6 months for MM Obesity 242681580 E66.9 BMI 30.4keep low fat, low carb dietc/w regular activity Alcohol dependence 14671 003 F10.20 continues with etoh 3-4 days week more on weekends d iscussed impact on EDencourag ed reduction Benign ess ential hypertension 3586429 I10 BP at goal c/w lisinopril continue to work on diet, exercise, and lowering salt intake as discussed Neuropathy due to diabetes mellitus 950947942 E11.40 A1C 6.5c/w metformin 2000 mg qdfully abn foot exam but stable discussed importance of checking feet regularly. no open toe shoesneed to protect feet Mixed hyperlipidemia 267 046793 E78.2 Cholestero l is at goal at 30c/w statinCont inue to work on diet and exercise as discussed Adult heal th examination 219152960 Z00.00 see Risk Assessment and Lifestyle Change Counseling section above HM: labs utd colonoscop y 11/26/2020 W/ 5 YR REPEATEYE EXAM 04/2023- WILL SCHEDULE declines psa Depression screening 171 235581 Z13.31 depression screening tool administer edneg phq 9mood is good Screening for alcohol abuse 227696108 Z13.39 Alcohol use screening tool administer edaudit 8etoh dependence discussed impact on sugars, kidney/braden er fx- understand s Screening for malignant neoplasm of prostate 451649363 Z12.5 If you have a prostate, the [...] expectancy .declines testing this year Rib pain 153647558 R07.8 1 injury 2 weeks agorf of ibuprofen Disorder o f nervous system due to type 2 diabetes mellitus 523967379 E11.49 A1C 6.5c/w metformin 1500 mg qdfully abn foot exam but stable discussed importance of checking feet regularly. 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 638857640 E11.3299 mild OUutd on exam 06/2023fol lowed by [facility] Type 2 nora betes mellitus without complication 871906126 E11.9 A1C 6.9 at Goal <7.0 advised to reduce ETOH doing well with more activity d/t job no med changes rto 6 months for MM Obesity 086721613 E66.9 BMI 30.4keep low fat, low carb dietc/w regular activity Alcohol dependence 26768 003 F10.20 etoh 4-5 x week few drinkswork ing on reducing weekday drinkingun derstands impact on blood sugar, liver Benign ess ential hypertension 7563143 I10 BP at goal c/w lisinopril continue to work on diet, exercise, and lowering salt intake as discussed Neuropathy due to diabetes mellitus 541409752 E11.40 A1C 6.9 up from 6.5is going to focus on diet, less weekday etohc/w metformin 2000 mg qdfully abn foot exam but stable discussed importance of checking feet regularly. no open toe shoesneed to protect feet Mixed hyperlipidemia 267 113245 E78.2 Cholestero l is at goal at 30c/w statinCont inue to work on diet and exercise as discussed Influenza vaccination declined 770566515 Z28.21 Health Concerns Section Related Observation LastModified by Organization Detai ls LastModified Time None Recorded Concern Status LastModified by Organization Details LastModified Time None Recorded Advance Directives Directive None Recorded Payers Encounter Date Sequence Insurance Name Policy Number Policy Padron Covered Member ID Padron Member ID Guarantor Name 11/10/2022 1 [facility] [employer] 111 Timo Payne Yusra [id number] Timo Elmer Yusra 05/10/2023 1 [facility] 111 Timo Payne Yusra [id number] Timo Meng 11/02/2023 1 [facility] [employer] 111 Timo Riverasano [id number] Timo Elmer Yusra 11/13/2023 1 [facility] [employer] 111 Timo Riverasano [id number] Timo Elmer Yusra 05/15/2024 1 [facility] [employer] 111 Timo Riverasano [id number] Timo Elmer RiveraYusra Notes Date Note Type Note Provider Name [...] decline in exercise capacity Aydee Clarke NP [address] [place] [address], [phone], [facility] 11/10/2022 09:20:06 3 text/html VMG DiabetesReported bypatient.Review [...] in exercise capacity saw dentist concern re: [email or web address] up from 6.4- has beenetoh 3-4 days a week - few after work Nikole Pandya. [address] [place] [address], [phone], [facility] 05/13/2023 15:47:09 4 text/html 10/30/2023 injury at [...] better than the ice. Junie Parekh MD [address] [place] [address], [phone], [facility] 11/02/2023 09:54:13 4 text/html Physical Exam/MaleReported bypatient.PHAPatient [...] identified barriers to care Context:Diabetes;Peripheral vascular disease (04714) Associated Symptoms:no muscle pain; no dyspnea; no [...] decline in exercise capacity Aydee Clarke NP [address] [place] [address], [phone], [facility] 11/13/2023 13:01:29 4 text/html VMG DiabetesReported bypatient.Review [...] identified barriers to care Context:Diabetes;Peripheral vascular disease (29081) Associated Symptoms:no muscle pain; no dyspnea; no [...] keeping it to weekends Aydee Clarke NP [address] [place] [address], [phone], [facility] 05/15/2024 08:59:35
--- OUTSIDE RECORDS SUMMARY | 2024-09-04 09:27 | XMS_ITS | Encounter Summary ---
Author Organization [facility] Address [phone] [place] [address] Care Team Providers Care Java Lead Name Role Phone Anali Yanez DO Primary Care Provider [phone] Orin Joshi NP Primary Care Provider [phone] Encounter Details Date Type Department Care Team (Late st Contact Info) Description 02/04/2018 Procedure Pass OR Admitting Dept - Virtual Department [address] [place] [address] Social History Tobacco Use Types Packs/Day Years [...] on filedocumented in this encounter Care Teams Java Lead Relationship Specialty Start Date End Date Anali Yanez DO [address] [place] [phone] [email or web address] PCP - General Internal Medicine 01/31/18 11/25/20 Orin Joshi NP [address] [place] [id number] PCP - General 11/26/20 documented as of this encounter Additional Source Comments The information contained in this document represents components of the legal health record. It is not the complete legal health record.[facility]
--- OUTSIDE RECORDS SUMMARY | 2024-09-04 09:27 | XMS_ITS | Data Portability ---
Author Organization [facility], , [facility], OFFICE Address [address] [place] [address] [place] [address] Care Team Providers Care Special Service Officer Name Role Phone WANDY BABCOCK Field Underwriter [phone] CAROLINA YANEZ Primary Care Provider AYDEE CLARKE Primary Care Provider [phone] Lawyer [facility] Drip Pumper Assessment Encounter Date Assessment Date Assessment LastModified [...] Details Appointments LAB Follow-Up 2024 07:30A M [facility] Lab Not available Not available Not available Wellness Visit 30 2024 09:15A M Aydee Madelyn, [employer]BER Not available Not available Not available Lab HbA1c (hemoglob in A1c), blood 2022 024 [facility], [address], [place], [address], 08/09/2023 10:57:33 Referral gastroent erologist referral - per dentist as significa nt erosion of enamel [address] [facility], [address] [place], [address], 09/28/2023 12:31:18 Procedures None recorded. Surgeries None recorded. Imaging XR, ribs, unilatera l - eval for fractured ribs, s/p fall on stone wall on L side 2023 024 [facility] (Imaging), [address] , [place], [address], 11/02/2023 10:18:03 Medication Orders simvastat in 20 mg tablet 2023 024 [facility]/Pharmacy #0818, [address] [place], [address], 05/15/2024 08:59:23 metformin ER 500 mg tablet,ex tended release 24 hr 2023 024 [facility]/Pharmacy #0818, [address] [place], [address], 05/15/2024 08:59:23 lisinopri l 10 mg tablet 2023 024 [facility]/Pharmacy #0818, [address] [place], [address], 05/15/2024 08:59:22 ibuprofen 800 mg tablet 2023 [facility] [address] [place], [address], 11/13/2023 10:26:24 lisinopri l 10 mg tablet 2023 024 [facility], [address] [place], [address], 11/13/2023 10:26:18 ibuprofen 800 mg tablet 2023 024 [facility], [address] [place], [address], 11/02/2023 08:27:07 sildenafi l 50 mg tablet 2022 [facility] [address] [place], [address], 11/13/2023 09:54:42 Patient TargetsNo targets recorded. Patient Instructions Encounter Date Encounter Id Patient Instructions Last Modified By Organization Details Last Modified Time 11/10/2022 [id number] high cholesterol lifestyle changes pkeough Not available 11/10/2022 09:18:51 Well Visit 50 to 65: Care Instructions pkeough Not available 11/10/2022 09:18:50 11/13/2023 [id number] high blood pressure: care instructions pkeough Not available 11/13/2023 10:26:16 learning about high blood pressure pkeough Not available 11/13/2023 10:26:16 05/15/2024 [id number] high blood pressure: care instructions pkeough Not available 05/15/2024 08:59:20 learning about high blood pressure pkeough Not available 05/15/2024 08:59:20 Reason for Referral Drip Pumper Referral for Erosion of teeth per dentist [...] furth er confi rmati on Not Available [address], [address], 11/02/2022 11:36:14 11/03/19 23 11/02/2022 HGB A1C estimated average glucose 137.0 mg/dL Not Available [address], [address], 11/02/2022 11:36:14 11/03/19 23 11/02/2022 BASIC METAB OLIC PANEL glucose 151 mg/dL 70-100 high Not Available [address], [address], 11/02/2022 15:34:56 11/03/19 23 11/02/2022 BASIC METAB OLIC PANEL BUN 17 mg/dL 7-18 Not Available [address], [address], 11/02/2022 15:34:56 11/03/19 23 11/02/2022 BASIC METAB OLIC PANEL creatinine 1.0 mg/dL 0.8-1. 3 Not Available [address], [address], 11/02/2022 15:34:56 11/03/19 23 11/02/2022 BASIC METAB OLIC PANEL B/C 17.0 ratio Not Available [address], [address], 11/02/2022 15:34:56 11/03/19 23 11/02/2022 BASIC METAB [...] be used in pregn babak. Not Available [address], [address], 11/02/2022 15:34:56 11/03/19 23 11/02/2022 BASIC METAB OLIC PANEL sodium 138 mmol/ L 136-14 5 Not Available [address], [address], 11/02/2022 15:34:56 11/03/19 23 11/02/2022 BASIC METAB OLIC PANEL potassium 4.3 mmol/ L 3.5-5. 1 Not Available [address], [address], 11/02/2022 15:34:56 11/03/19 23 11/02/2022 BASIC METAB OLIC PANEL chloride 102 mmol/ L 96-107 Not Available [address], [address], 11/02/2022 15:34:56 11/03/19 23 11/02/2022 BASIC METAB OLIC PANEL anion gap 9.2 5.0-15 .0 Not Available [address], [address], 11/02/2022 15:34:56 11/03/19 23 11/02/2022 BASIC METAB OLIC PANEL CO2 27 mmol/ L 21-32 Not Available [address], [address], 11/02/2022 15:34:56 11/03/19 23 11/02/2022 BASIC METAB OLIC PANEL calcium 8.9 mg/dL 8.5-10 .3 Not Available [address], [address], 11/02/2022 15:34:56 11/03/1911/02/2022 LIPID PANEL cholesterol 143 mg/dL <200 mg/dl Sudhir able 200-2 39 mg/dl Borde rline High >240 mg/dl High Not Available [address], [address], 11/02/2022 15:34:57 11/03/19 23 11/02/2022 LIPID PANEL triglyceride s 317 mg/dL high <150 mg/dL Viki l 150-1 99 mg/dL Borde rline High 200-4 99 mg/dL High >500 mg/dL Very High Not Available [address], [address], 11/02/2022 15:34:57 11/03/19 23 11/02/2022 LIPID PANEL direct HDL 38 mg/dL <40 mg/dl - Major Risk for CHD >60 mg/dl - Negat berta Risk for CHD Not Available [address], [address], 11/02/2022 15:34:57 11/03/19 23 11/02/2022 DIREC T [...] r is not neces maisha. Not Available [address], [address], 11/02/2022 16:48:05 05/03/2005/03/2023 HGB A1C hemoglobin A1C [...] furth er confi rmati on Not Available [address], [address], 05/03/2023 12:05:19 05/03/2005/03/2023 HGB A1C estimated average glucose 157.1 mg/dL Not Available [address], [address], 05/03/2023 12:05:19 05/03/2005/03/2023 BASIC METAB OLIC PANEL glucose 173 mg/dL 70-100 high Not Available [address], [address], 05/03/2023 12:12:20 05/03/2005/03/2023 BASIC METAB OLIC PANEL BUN 17 mg/dL 7-18 Not Available [address], [address], 05/03/2023 12:12:20 05/03/2005/03/2023 BASIC METAB OLIC PANEL creatinine 1.0 mg/dL 0.8-1. 3 Not Available [address], [address], 05/03/2023 12:12:20 05/03/2005/03/2023 BASIC METAB OLIC PANEL B/C 17.0 ratio Not Available [address], [address], 05/03/2023 12:12:20 05/03/2005/03/2023 BASIC METAB OLIC PANEL [...] be used in pregn babak. Not Available [address], [address], 05/03/2023 12:12:20 05/03/2005/03/2023 BASIC METAB OLIC PANEL sodium 138 mmol/ L 136-14 5 Not Available [address], [address], 05/03/2023 12:12:20 05/03/2005/03/2023 BASIC METAB OLIC PANEL potassium 4.2 mmol/ L 3.5-5. 1 Not Available [address], [address], 05/03/2023 12:12:20 05/03/2005/03/2023 BASIC METAB OLIC PANEL chloride 102 mmol/ L 96-107 Not Available [address], [address], 05/03/2023 12:12:20 05/03/2005/03/2023 BASIC METAB OLIC PANEL anion gap 11.9 5.0-15 .0 Not Available [address], [address], 05/03/2023 12:12:20 05/03/2005/03/2023 BASIC METAB OLIC PANEL CO2 24 mmol/ L 21-32 Not Available [address], [address], 05/03/2023 12:12:20 05/03/20 23 05/03/2023 BASIC METAB OLIC PANEL calcium 9.0 mg/dL 8.5-10 .3 Not Available [address], [address], 05/03/2023 12:12:20 05/03/2005/03/2023 LIPID PANEL cholesterol 148 mg/dL <200 mg/dl Sudhir able 200-2 39 mg/dl Borde rline High >240 mg/dl High Not Available [address], [address], 05/03/2023 12:12:21 05/03/2005/03/2023 LIPID PANEL triglyceride s 323 mg/dL high <150 mg/dL Viki l 150-1 99 mg/dL Borde rline High 200-4 99 mg/dL High >500 mg/dL Very High Not Available [address], [address], 05/03/2023 12:12:21 05/03/2005/03/2023 LIPID PANEL direct HDL 42 mg/dL <40 mg/dl - Major Risk for CHD >60 mg/dl - Negat berta Risk for CHD Not Available [address], [address], 05/03/2023 12:12:21 05/03/2005/03/2023 DIREC T LDL direct [...] r is not jose maisha. Not Available [address], [address], 05/03/2023 14:38:05 05/03/20 23 05/03/2023 MICRO ALBUM IN/CR EATIN INE RATIO PANEL , URINE microalbumin 8.0 mg/L 1.3-20 .0 Not Available [address], [address], 05/03/2023 15:48:25 05/03/20 23 05/03/2023 MICRO ALBUM IN/CR EATIN INE RATIO PANEL , URINE creatinine urine 139.3 mg/dL 30.0-1 25.0 high Not Available [address], [address], 05/03/2023 15:48:25 05/03/20 23 05/03/2023 MICRO ALBUM IN/CR EATIN INE RATIO PANEL , URINE microalb/cre at ratio 5.7 mg/g_ creat 0.0-29 .0 Not Available [address], [address], 05/03/2023 15:48:25 08/09/19 24 08/09/2023 BASIC METAB OLIC PANEL glucose 168 mg/dL 70-100 high Not Available [address], [address], 08/09/2023 10:55:05 08/09/19 24 08/09/2023 BASIC METAB OLIC PANEL BUN 17 mg/dL 7-18 Not Available [address], [address], 08/09/2023 10:55:05 08/09/19 24 08/09/2023 BASIC METAB OLIC PANEL creatinine 1.1 mg/dL 0.8-1. 3 Not Available [address], [address], 08/09/2023 10:55:05 08/09/19 24 08/09/2023 BASIC METAB OLIC PANEL B/C 15.5 ratio Not Available [address], [address], 08/09/2023 10:55:05 08/09/19 24 08/09/2023 BASIC METAB [...] be used in pregn babak. Not Available [address], [address], 08/09/2023 10:55:05 08/09/19 24 08/09/2023 BASIC METAB OLIC PANEL sodium 139 mmol/ L 136-14 5 Not Available [address], [address], 08/09/2023 10:55:05 08/09/19 24 08/09/2023 BASIC METAB OLIC PANEL potassium 4.3 mmol/ L 3.5-5. 1 Not Available [address], [address], 08/09/2023 10:55:05 08/09/19 24 08/09/2023 BASIC METAB OLIC PANEL chloride 102 mmol/ L 96-107 Not Available [address], [address], 08/09/2023 10:55:05 08/09/19 24 08/09/2023 BASIC METAB OLIC PANEL anion gap 10.8 5.0-15 .0 Not Available [address], [address], 08/09/2023 10:55:05 08/09/19 24 08/09/2023 BASIC METAB OLIC PANEL CO2 26 mmol/ L 21-32 Not Available [address], [address], 08/09/2023 10:55:05 08/09/19 24 08/09/2023 BASIC METAB OLIC PANEL calcium 8.9 mg/dL 8.5-10 .3 Not Available [address], [address], 08/09/2023 10:55:05 08/09/19 24 08/09/2023 HGB A1C [...] furth er confi rmati on Not Available [address], [address], 08/09/2023 10:57:32 08/09/19 24 08/09/2023 HGB A1C estimated average glucose 157.1 mg/dL Not Available [address], [address], 08/09/2023 10:57:32 10/25/19 24 10/25/2023 HGB A1C [...] furth er confi rmati on Not Available [address], [address], 10/25/2023 11:15:39 10/25/19 24 10/25/2023 HGB A1C estimated average glucose 139.9 mg/dL Not Available [address], [address], 10/25/2023 11:15:39 10/25/19 24 10/25/2023 BASIC METAB OLIC PANEL glucose 149 mg/dL 70-100 high Not Available [address], [address], 10/25/2023 16:27:42 10/25/19 24 10/25/2023 BASIC METAB OLIC PANEL BUN 21 mg/dL 7-18 high Not Available [address], [address], 10/25/2023 16:27:42 10/25/19 24 10/25/2023 BASIC METAB OLIC PANEL creatinine 1.0 mg/dL 0.8-1. 3 Not Available [address], [address], 10/25/2023 16:27:42 10/25/19 24 10/25/2023 BASIC METAB OLIC PANEL B/C 21.0 ratio Not Available [address], [address], 10/25/2023 16:27:42 10/25/19 24 10/25/2023 BASIC METAB [...] be used in pregn babak. Not Available [address], [address], 10/25/2023 16:27:42 10/25/19 24 10/25/2023 BASIC METAB OLIC PANEL sodium 139 mmol/ L 136-14 5 Not Available [address], [address], 10/25/2023 16:27:42 10/25/19 24 10/25/2023 BASIC METAB OLIC PANEL potassium 4.4 mmol/ L 3.5-5. 1 Not Available [address], [address], 10/25/2023 16:27:42 10/25/19 24 10/25/2023 BASIC METAB OLIC PANEL chloride 101 mmol/ L 96-107 Not Available [address], [address], 10/25/2023 16:27:42 10/25/19 24 10/25/2023 BASIC METAB OLIC PANEL anion gap 12.9 5.0-15 .0 Not Available [address], [address], 10/25/2023 16:27:42 10/25/19 24 10/25/2023 BASIC METAB OLIC PANEL CO2 25 mmol/ L 21-32 Not Available [address], [address], 10/25/2023 16:27:42 10/25/19 24 10/25/2023 BASIC METAB OLIC PANEL calcium 9.1 mg/dL 8.5-10 .3 Not Available [address], [address], 10/25/2023 16:27:42 10/25/19 24 10/25/2023 LIPID PANEL cholesterol 113 mg/dL <200 mg/dl Sudhir able 200-2 39 mg/dl Borde rline High >240 mg/dl High Not Available [address], [address], 10/25/2023 16:27:43 10/25/19 24 10/25/2023 LIPID PANEL triglyceride s 205 mg/dL <150 mg/dL Viki l 150-1 99 mg/dL Borde rline High 200-4 99 mg/dL High >500 mg/dL Very High Not Available [address], [address], 10/25/2023 16:27:43 10/25/19 24 10/25/2023 LIPID PANEL direct HDL 42 mg/dL <40 mg/dl - Major Risk for CHD >60 mg/dl - Negat berta Risk for CHD Not Available [address], [address], 10/25/2023 16:27:43 10/25/19 24 10/25/2023 LDL - [...] r is not jose reddingy. Not Available [address], [address], 10/25/2023 16:27:44 10/25/19 24 10/26/2023 IMMUN OGLOB ULIN A immunoglobul in A 125 mg/dL 47-310 normal Not Available [facility] [address], [address], 10/26/2023 16:02:40 10/25/19 24 10/26/2023 TISSU E TRANS GLUTA SANDRINE E AB, IGA tissue transglutami nase Ab, IgA <1.0 U/mL normal Value Inter preta tion ----- ----- ----- ---- <15.0 Antib tobias not detec audelia > or = 15.0 Antib tobias detec audelia Not Available [facility] [address], [place], [address], 10/26/2023 16:02:41 01/02/20 24 01/02/2024 POC GLU POC glu 179 70 - 100 high Not Available [facility] [address] [place] [address], [address], 01/04/2024 09:10:15 05/08/20 24 05/08/2024 HGB A1C [...] furth er confi rmati on Not Available [address] [place], [address], 05/08/2024 11:51:31 05/08/20 24 05/08/2024 HGB A1C estimated average glucose 151.3 mg/dL Not Available [address], [address], 05/08/2024 11:51:31 05/08/20 24 05/08/2024 MICRO ALBUM IN/CR EATIN INE RATIO PANEL , URINE microalbumin 21.0 mg/L 1.3-20 .0 high Not Available [address], [address], 05/08/2024 14:38:50 05/08/2005/08/2024 MICRO ALBUM IN/CR EATIN INE RATIO PANEL , URINE creatinine urine 121.7 mg/dL 30.0-1 25.0 Not Available [address], [address], 05/08/2024 14:38:50 05/08/20 24 05/08/2024 MICRO ALBUM IN/CR EATIN INE RATIO PANEL , URINE microalb/cre at ratio 17.3 mg/g_ creat 0.0-29 .0 Not Available [address], [address], 05/08/2024 14:38:50 05/08/20 24 05/09/2024 BASIC METAB OLIC PANEL glucose 182 mg/dL 70-100 high Not Available [address], [address], 05/09/2024 15:14:00 05/08/20 24 05/09/2024 BASIC METAB OLIC PANEL BUN 15 mg/dL 7-18 Not Available [address], [address], 05/09/2024 15:14:00 05/08/20 24 05/09/2024 BASIC METAB OLIC PANEL creatinine 1.1 mg/dL 0.8-1. 3 Not Available [address], [address], 05/09/2024 15:14:00 05/08/2005/09/2024 BASIC METAB OLIC PANEL B/C 13.6 ratio Not Available [address], [address], 05/09/2024 15:14:00 05/08/2005/09/2024 BASIC METAB OLIC PANEL [...] be used in pregn babak. Not Available [address], [address], 05/09/2024 15:14:00 05/08/2005/09/2024 BASIC METAB OLIC PANEL sodium 140 mmol/ L 136-14 5 Not Available [address], [address], 05/09/2024 15:14:00 05/08/20 24 05/09/2024 BASIC METAB OLIC PANEL potassium 4.9 mmol/ L 3.5-5. 1 Not Available [address], [address], 05/09/2024 15:14:00 05/08/20 24 05/09/2024 BASIC METAB OLIC PANEL chloride 101 mmol/ L 96-107 Not Available [address], [address], 05/09/2024 15:14:00 05/08/20 24 05/09/2024 BASIC METAB OLIC PANEL anion gap 9.0 5.0-15 .0 Not Available [address], [address], 05/09/2024 15:14:00 05/08/20 24 05/09/2024 BASIC METAB OLIC PANEL CO2 30 mmol/ L 21-32 Not Available [address], [address], 05/09/2024 15:14:00 05/08/20 24 05/09/2024 BASIC METAB OLIC PANEL calcium 9.5 mg/dL 8.5-10 .3 Not Available [address], [address], 05/09/2024 15:14:00 11/02/19 24 11/02/2023 XR, ribs, unila teral CLINIC AL HISTOR Y: Left-s ided chest wall pain after a fall. Histor y of old fractu res. TECHNI QUE: At least 3 views of the left ribs are obtain ed. COMPAR SANDEE: 2020, 017 FINDIN GS: There are reservoir engineering advisor ior and latera l fractu res of the left fourth , fifth, sixth ribs. There are fractu re along the latera l aspect of the left sevent h, eighth and ninth ribs. There are fractu re of along the reservoir engineering advisor ior and beata latera l aspect s [...] ation recomm ended. Vinh Thurston ana: Heladio Ibrahmi ms [facility] (Imaging) [address] [place], [address], 11/13/2023 10:06:59 Result Notes None recorded. Procedures Surgical History Date Name Laterality Status Provider Name and Address Organization Details Recorded Time 01/02/2024 Katiana - EGD completed Mynor Saab MD [address] [place] [address], [id number], [facility] [place] 01/02/2024 07:51:46 Imaging Results Imaging Date Name Status LastModified by Organiz ation Details LastModified Time 11/02/2023 XR, ribs, unilateral completed [facility] (Imaging) [address], [place], [address], 11/13/2023 10:06:59 Procedure Notes None recorded. Medical Equipment None Reported. Allergies No known drug allergies Medications Name Sig Start Date Stop Date Status Note LastModified by Organization Details LastModified Time cyclobenz aprine hydrochlo ride 10 mg tabs 05/13 completed Not Available Not Available Not Available metformin hydrochlo ride er 500 mg tb24 05/13 completed Not Available Not Available Not Available lisinopri l 10 mg tabs 05/13 completed Not Available Not Available Not Available meloxicam 15 mg tabs 05/13 completed Not Available Not Available Not Available fish oil 1000mg capsule TAKE 2 CAPSULES [...] You Wear A Helmet When Biking? Yes [email or web address] Information not available 06/24/2015 What Is Your Level Of Caffeine Consumption? None Information not available 05/13/2020 How Much Tobacco Do You Chew? None Information not available 12/31/2012 What Type Of Diet Are You Following? REGULAR [email or web address] Information not available 06/24/2015 Which Illicit Or Recreational Drugs Have You Used? No Denies [email or web address] Information not available 01/15/2018 Do You Or Have You Ever Used E-cigarettes Or Vape? 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 0 Information not available 12/31/2012 Are There Any Guns Present In Your Home? No [email or web address] Information not available 06/24/2015 Live Alone Or With Others? With Others [email or web address] Information not available 06/08/2011 Patient Has Health Care Proxy Signed And In Chart Yes [email or web address] Information not available 11/14/2022 Marital Status [email or web address] Informatio n not available 03/01/2012 Mosquito Repellent Used Routinely Yes Information not available 01/15/2018 What Was The Date Of Your Most Recent Tobacco Screening? 05/11/2022 05/11/22 CJ [email or web address] Information not available 05/11/2022 How Many Children Do You Have? 0 [email or web address] Information not available 06/08/2011 Seat Belts Used Routinely Yes [email or web address] Information not available 06/24/2015 Smoke Alarm In Home Yes [email or web address] Information not available 06/24/2015 Do You Or Have You Ever Used Smokeless Tobacco? Never Used Smokeless Tobacco 10/28/2019 TG [email or web address] Information not available 10/28/2019 How Much Tobacco Do You Smoke? No 05/11/22 CJ Information not available 05/11/2022 What Types Of Sporting Activities Do You Participate In? No Information not available 01/15/2018 General Stress Level Low [email or web address] Information not available 06/24/2015 Do You Use Sunscreen Routinely? Yes [email or web address] Information not available 06/24/2015 How Many Years [...] SNOMED-CT Code Diagnosis ICD10 Code Diagnosis Note [id number] [facility] OFFICE [address] [place] [address] [place] [address] 08/28/2000 11:45:00 08/12/2008 02:02:29 [id number] [facility] OFFICE [address] [place] [address] [place] [address] 09/07/2006 09:25:16 09/07/2006 13:17:47 [id number] [facility] - [address] [place] [address] 09/27/2006 09:47:41 09/27/2006 09:47:45 [id number] Eye Care, [address] [place] [address] 09/27/2006 10:01:46 09/27/2006 11:52:26 [id number] Eye Care, [address] [place] [address] 10/15/2006 14:29:42 10/15/2006 17:10:27 [id number] [facility] OFFICE [address] [place] [address] [place] [address] 10/17/2006 08:03:38 10/17/2006 09:08:25 [id number] [facility] OFFICE [address] [place] [address] [place] [address] 01/09/2007 12:05:24 01/09/2007 14:30:41 [id number] LAB - [facility] [address] [place] [address] 01/10/2007 07:28:27 01/10/2007 07:28:32 [id number] LAB - [facility] [place] [address] 01/11/2007 08:57:27 01/11/2007 08:57:35 [id number] [facility] OFFICE [address] [place] [address] 02/01/2007 08:12:35 02/01/2007 10:48:02 [id number] LAB - [facility] [place] [address] 06/11/2007 07:56:03 06/11/2007 07:56:12 [id number] [facility] OFFICE [address] [place] [address] 06/25/2007 09:01:34 08/12/2008 02:02:29 [id number] Podiatry, [facility] [place] [address] 07/09/2007 09:05:27 07/10/2007 09:23:03 [id number] [facility] - [facility] [place] [address] 11/19/2007 10:32:30 11/19/2007 10:32:45 [id number] [facility] OFFICE [address] [place] [address] 05/12/2009 10:30:12 05/13/2009 08:35:11 [id number] [facility] OFFICE [address] [place] [address] 06/09/2009 14:41:02 06/10/2009 09:44:59 [id number] Endocrino logy, [facility] [place] [place] [address] 06/23/2009 08:26:26 06/24/2009 09:26:23 [id number] Endocrino logy, [facility] [address] [place] [address] 08/19/2009 09:27:35 08/19/2009 14:10:39 [id number] Endocrino logy, [facility] [place] [address] 11/18/2009 09:29:15 11/18/2009 10:41:01 [id number] [facility] OFFICE [address] [place] [address] 09/20/2010 12:01:55 09/20/2010 16:23:51 [id number] , [facility] OFFICE [address] [place] [address] [place] [address] 06/21/2011 09:53:16 06/21/2011 10:13:02 [id number] , [facility] OFFICE [address] [place] [address] [place] [address] 01/23/2012 08:10:14 01/23/2012 09:04:59 [id number] , [address] [place] [address] 03/01/2012 08:33:47 03/01/2012 09:08:14 [id number] Dorina Coker , [address] [place] [address] 12/31/2012 11:03:27 01/01/2013 07:35:53 [id number] Jessica Lockett i [address] [place] [id number] 1 05/19/2013 09:39:48 05/19/2013 09:56:44 [id number] Ami Ledesma , [facility] [place] OFFICE [address] [place] [address] JU[place] BLACKBURN [id number] 1 08/28/2013 15:02:43 08/28/2013 15:25:22 [id number] Rosi Reyes , [facility] [place], [address] [place] [id number] 1 02/26/2014 09:23:19 02/26/2014 09:55:23 [id number] Montana Foreman III, MD , [address] [place] [id number] 1 01/05/2015 10:38:43 01/05/2015 10:57:32 [id number] JUAN Lewis, [facility] [place], [address] [place] [id number] 1 02/23/2015 09:02:42 02/23/2015 09:28:05 [id number] Aydee Clarke NP , [facility] [place], [address] [place] [id number] 1 02/25/2015 09:28:28 02/25/2015 10:08:25 [id number] Pilar Church MA , [facility] [place], [address] [place]COS [id number] 1 02/26/2015 09:13:35 02/26/2015 09:42:40 [id number] PABLO Sommers, [address] [place] [id number] 1 03/01/2015 09:16:53 03/01/2015 09:27:47 [id number] PABLO Sommers, [address] [place] [id number] 1 06/24/2015 08:26:01 06/24/2015 09:06:08 [id number] Marcie Washington , [facility] [place], OFFICE [address] [place] [address] [place] [address] 12/01/2015 09:44:27 12/01/2015 10:33:57 [id number] Jarocho Browne MD , [address] [place] [address] 01/25/2016 09:18:19 01/25/2016 10:06:23 [id number] PABLO Sommers, [address] [place] [address] 1 06/28/2016 09:35:15 06/29/2016 09:39:46 [id number] PABLO Anna, [address] [place] [address] 1 10/10/2016 08:00:49 10/12/2016 15:46:30 [id number] PABLO Sommers, [address] [place] [address] 1 01/09/2017 07:57:33 01/10/2017 09:04:13 [id number] Carolina Yanez D.O. , [facility], [address] [place] [address] 1 02/09/2017 11:28:09 02/09/2017 12:27:37 [id number] Lety Matthew , [address] [place] [address] 1 01/15/2018 10:28:34 01/15/2018 11:35:54 [id number] Mitesh Cheng DPM Podiatry, [address] [place] [address] 01/30/2018 11:02:26 01/30/2018 14:26:05 [id number] Carolina SEARS, [facility], [place]ICE [address] [place] [address] 01/30/2018 15:50:18 01/30/2018 18:24:23 [id number] Joudy-Radha Dinnall, DPM Podiatry, [address] [address] 02/12/2018 10:26:41 02/12/2018 11:12:01 [id number] Joudy-Radha Dinnall, DPM Podiatry, [address] [address] 02/19/2018 08:51:40 02/19/2018 09:26:45 [id number] Joudy-Radha Dinnall, DPM Podiatry, [address] [address] 03/05/2018 08:38:01 03/07/2018 14:19:36 [id number] Joudy-Radha Dinnall, DPM Podiatry, [address] [address] 05/07/2018 09:13:31 05/07/2018 09:50:36 [id number] Joudy-Radha Dinnall, DPM Podiatry, [address] [address] 05/21/2018 08:45:10 05/21/2018 16:20:21 [id number] Joudy-Radha Dinnall, DPM Podiatry, [address] [address] 07/09/2018 09:09:03 07/10/2018 08:20:30 [id number] PABLO Sommers, [facility], OFFICE [address] [place], [place] [address] 09/06/2018 14:25:20 09/06/2018 15:02:23 [id number] PABLO Sommers, [facility], OFFICE [address] [place] [address] 1 03/10/2019 15:51:01 03/10/2019 16:23:56 [id number] Nikole Pandya . MD SEARS, [facility], OFFICE [address] [place] [address] 1 10/28/2019 08:30:56 10/28/2019 15:14:19 [id number] Aydee Clarke NP , [facility], OFFICE [address] [place] [address] [place] [address] 1 05/13/2020 10:57:05 05/14/2020 11:47:45 [id number] PABLO Sommers, [address] [place] [address] 1 05/27/2020 09:04:01 05/28/2020 15:26:35 [id number] Carolina Yanez D.O. , [facility] OFFICE [address] [place] [address] [place] [address] 1 10/28/2020 07:51:21 11/19/2020 16:22:56 [id number] Dorina Zaman RN [address] [place] [address] 1 11/18/2020 08:16:03 11/19/2020 16:14:08 [id number] Yolette Ortiz RN [address] [place] [address] 11/26/2020 06:44:42 11/26/2020 12:47:20 [id number] Nikole Pandya . MD SEARS, [address] [place] [address] 1 06/03/2021 14:03:53 06/03/2021 14:47:31 [id number] MD RENU Barreto, [address] [place] [address] 1 06/13/2021 08:59:47 06/13/2021 09:45:05 [id number] PABLO Sommers, [address] [place] [address] 1 11/03/2021 08:30:54 11/03/2021 09:02:37 [id number] Carolina Yanez D.O. , [address] [place] [address] 1 05/11/2022 09:14:18 05/11/2022 09:53:17 [id number] PABLO Sommers, [address] [place] [address] 1 11/10/2022 08:27:54 11/10/2022 09:18:34 [id number] Nikole Pandya . , [facility], OFFICE [address] [place] [address] [place] [address] 1 05/10/2023 09:15:35 05/14/2023 08:33:22 [id number] Yani Villegas RN Endoscopy , [facility] [address] [place] [address] 1 01/02/2024 06:45:56 01/02/2024 10:51:16 [id number] Junie Parekh MD , [facility] OFFICE [address] [place] [address] [place] [address] 1 11/02/2023 08:07:58 11/02/2023 10:18:03 [id number] Aydee Clarke NP , [facility] OFFICE [address] [place] [address] [place] [address] 1 11/13/2023 09:46:52 11/13/2023 13:24:43 [id number] Aydee Clarke NP , [facility] OFFICE [address] [place] [address] [place] [address] 1 05/15/2024 08:13:22 05/15/2024 10:18:36 Health Concerns Section Related Observation LastModified by Organization Detai ls LastModified Time None Recorded Concern Status LastModified by Organization Details LastModified Time None Recorded Advance Directives Directive None Recorded Payers Encounter Date Sequence Insurance Name Policy Number Policy Padron Covered Member ID Padron Member ID Guarantor Name 11/10/2022 1 [place] 111 Timo Meng [id number] Timo Meng 05/10/2023 1 [place] 111 Timo Meng [id number] Timo Meng 11/02/2023 1 [place] 111 Timo Meng [id number] Timo Meng 11/13/2023 1 [place] 111 Timo Meng [id number] Timo Riverasano 05/15/2024 1 [place] 111 Timo Meng [id number] Timo Meng
--- OUTSIDE RECORDS SUMMARY | 2024-09-04 09:27 | XMS_ITS | Encounter Summary ---
Author Organization [facility] Address [phone] formerly [facility] [place] [address] Care Team Providers Care Performance Test Consultant Name Role Phone Anali Yanez DO Primary Care Provider [phone] Orin Joshi NP Primary Care Provider [phone] Encounter Details Date Type Department Care Team (Latest Contact Info) Description 11/23/2020 Transcribe Orders Virtual Department [address] [place] [id number] Mynor Saab MD [address] [place] [address] [email or web address] Pre-procedure lab exam (Primary Dx) Social History [...] (11/23/2020 1:55 PM EDT) COVID-19 Comment [id number] [facility] COVID Testing Status Sent to [facility] Micro Lab [facility] 11/23/2020 1:55 PM EDT 11/23/2020 4:51 PM EDT Mynor Saab MD BODY FLUIDS AND STOO LS ORDERABLES [facility] [address] [place] [address] documented in this encounter Visit Diagnoses Diagnosis Pre-procedure lab exam- Primary Pre-procedural laboratory examination documented in this encounter Care Teams Performance Test Consultant Relationship Specialty Start Date End Date Anali Yanez DO [address] [place] [address] [email or web address] PCP - General Internal Medicine 01/31/18 11/25/20 Orin Joshi NP [address] [place] [id number] PCP - General 11/26/20 documented as of this encounter Additional Source Comments The information contained in this document represents components of the legal health record. It is not the complete legal health record.[facility]
== END 2024-09-04 09:39 | disposition home or self-care (01) ==
PROVIDERS: PCP Nurse Practitioner Adult Health; Visit Provider Urology
DX: R79.89 Other specified abnormal findings of blood chemistry (principal); N32.0 Bladder-neck obstruction; E11.69 Type 2 diabetes mellitus with other specified complication; N52.1 Erectile dysfunction due to diseases classified elsewhere
CPT/HCPCS: 99204

== ENCOUNTER 2024-09-12 10:24 | Outpatient (AMB) | payer BC, SELFPAY ==
--- NOTE | 2024-09-12 10:34 | MHC.OFFVIS ---
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 He was seen at [facility] where he was treated for dog bite no other tx. Patient reports the past month he has been experiencing swelling and discomfort at the end of a work day. 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 No recent injury that he is aware of. He uses a thumb brace after work hard to use while working as he uses gloves in the cold weather. Denies numbness or tingling. 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 He complains of a one-month history of pain & swelling in his right thumb, & radial-sided wrist pain, worse at the end of a work day. He denies any kind of fall or known injury. 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 He wears a thumb brace at the end of the day, with some relief. He reports a prior dog bite injury to his right hand, DOI: 01/14/24. He says this went on to heal well. [facility] Social History (Updated 09/12/24 @ 10:38 by PHUONG Kramer) Patient Tobacco Use Status: Never used Tobacco Current occupation: [employer] Review of Systems Const All systems reviewed & are unremarkable except as noted in HPI and below Physical Exam Vital Signs: BMI result Body Mass Index 29.8 Const General: cooperative, healthy appearing and no acute distress Orientation/consciousness: patient oriented x3 HEENT Head: Yes normocephalic and Yes atraumatic Eyes EOM: EOMs intact bilaterally Resp Effort & Inspection: normal respiratory effort and able to speak in complete sentences Cardio Jugular venous distension: no JVD Skin General skin exam: turgor normal Rashes: no rashes Neuro General: patient oriented x3 Extrem Other: Evaluation of Right Upper Extremity: The patient is alert, oriented, and in no acute distress Neuro: Median, Ulnar, Radial nerves motor and sensory intact and sensation is normal to the tips of all digits Vascular: Cap refill brisk ROM: He can make a fist and extend all his digits No locking or catching Skin: No lacerations or abrasions. General: No Ecchymosis. No Erythema or evidence of infection. Tender over the 1st dorsal compartment Positive Yakov test on the right No tenderness over the A1 trudi of the thumb, MCP joint, or basal joint Radiographs: 3 views of the right hand were taken and viewed by me today in clinic. They show no fractures, dislocations, or foreign bodies. 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 Psych Appearance: grossly normal Affect: normal affect Attitude: cooperative Office Procedures AMB Fracture Care Details: No fracture, injection Fracture Billing Code: Fracture Billing Code Assessment & Plan Assessment & Plan (1) De Quervain's tenosynovitis, right: Code(s): M65.4 - Radial styloid tenosynovitis [de Quervain] Category: Medical (2) History of dog bite: Comment: R hand Code(s): Z78.9 - Other specified health status Category: Medical Plan Assessment & Plan: 1. 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 Once consent was obtained, I sterilely prepped the area over the 1st dorsal compartment of the Right thumb. I then injected the 1st dorsal compartment with a combination of 1 mL of dexamethasone (4mg/ml), and 1% lidocaine. The patient tolerated the procedure well with no complications and good resolution of their symptoms prior to leaving clinic. If the patient continues to have pain 6-8 weeks following this injection, they may call to schedule appointment to discuss alternative treatment options He will follow up prn 2. Right hand dog bite DOI: 01/14/24 Manages at [facility] No complaints today Scribed for Meaghan Kaiser MD by Ermias Sheffield, medical clinic manager, on 09/12/24 at 10:50 AM, EST. Orders: Orders XR hand RT min 3V Today M79.641 - Pain in right hand Coding Level of Care Code New Pt Level 4 (46692) Diagnoses De Quervain's tenosynovitis, right M65.4 History of dog bite Z78.9 CPT Codes Fracture Care - Fracture Billing Code: Fracture Billing Code ([id number])
[2024-09-12 10:38] VITALS: BMI 29.8
--- OUTSIDE RECORDS SUMMARY | 2024-09-12 11:18 | XMS_ITS | Clinical Summary ---
Author Organization [facility] Address [phone] [facility] [place] [address] Care Team Providers Care Application Developer Manager Name Role Phone Orin Joshi NP Primary Care Provider [phone] Allergies No known active allergies Medications Medication Sig Dispensed Refills Start Date End Date Status simvastatin (ZOCOR) 20 MG tablet Take 20 mg by mouth nightly. Active metformin HCl (METFORMIN ORAL) Take 500 tablets by mouth 2 (two) times a day. Active lisinopril (PRINIVIL,ZESTRIL) 10 MG tablet Take 10 mg by mouth daily. Active omega 8-izx-mhq-fish oil 1,000 mg (120 mg-180 mg) Cap [...] Medical Devices Not on file Care Teams Application Developer Manager Relationship Specialty Start Date End Date Orin Joshi NP [address] [place] [id number] PCP - General 11/26/20 Additional Source Comments The information contained in this document represents components of the legal health record. It is not the complete legal health record.[facility]
--- OUTSIDE RECORDS SUMMARY | 2024-09-12 11:19 | XMS_ITS | Encounter Summary ---
Author Organization [facility] Address [phone] [place] [address] Care Team Providers Care Check Out Cashier Name Role Phone Anali Yanez DO Primary Care Provider [phone] Orin Joshi NP Primary Care Provider [phone] Encounter Details Date Type Department Care Team (Late st Contact Info) Description 02/04/2018 Procedure Pass OR Admitting Dept - Virtual Department [address] [place] [address] Social History Tobacco Use Types Packs/Day Years [...] on filedocumented in this encounter Care Teams Check Out Cashier Relationship Specialty Start Date End Date Anali Yanez DO [address] [place] [address] [email or web address] PCP - General Internal Medicine 01/31/18 11/25/20 rOin Joshi NP [address] [place] [address] PCP - General 11/26/20 documented as of this encounter Additional Source Comments The information contained in this document represents components of the legal health record. It is not the complete legal health record.[facility]
--- OUTSIDE RECORDS SUMMARY | 2024-09-12 11:19 | XMS_ITS | Encounter Summary ---
Author Organization [facility] Address [phone] [facility] [place] [address] Care Team Providers Care Invasive Cardiologist Name Role Phone Anali Yanez DO Primary Care Provider [phone] Orin Joshi NP Primary Care Provider [phone] Encounter Details Date Type Department Care Team (Latest Contact Info) Description 11/23/2020 Transcribe Orders Virtual Department [address] [place] [phone] Mynor Saab MD [address] [place] [address] [email or web address] Pre-procedure lab exam (Primary Dx) Social History [...] (11/23/2020 1:55 PM EDT) COVID-19 Comment [id number] [facility] COVID Testing Status Sent to [facility] Micro Lab [facility] 11/23/2020 1:55 PM EDT 11/23/2020 4:51 PM EDT Mynor Saab MD BODY FLUIDS AND STOO LS ORDERABLES [facility] [address] [place] [address] documented in this encounter Visit Diagnoses Diagnosis Pre-procedure lab exam- Primary Pre-procedural laboratory examination documented in this encounter Care Teams Invasive Cardiologist Relationship Specialty Start Date End Date Anali Yanez DO [address] [place] [address] [email or web address] PCP - General Internal Medicine 01/31/18 11/25/20 Orin Joshi NP [address] [place] [id number] PCP - General 11/26/20 documented as of this encounter Additional Source Comments The information contained in this document represents components of the legal health record. It is not the complete legal health record.[facility]
== END 2024-09-12 14:53 | disposition home or self-care (01) ==
PROVIDERS: PCP Nurse Practitioner Adult Health; Visit Provider Orthopaedic Surgery
DX: M65.4 Radial styloid tenosynovitis [de Quervain] (principal); Z78.9 Other specified health status
CPT/HCPCS: 20550; 99203

== ENCOUNTER → 2024-09-12 10:28 | Outpatient (BNV) | payer BC, SELFPAY | PROVIDERS: Visit Provider Radiology Diagnostic Radiology | DX: M19.041 Primary osteoarthritis, right hand (principal) | CPT/HCPCS: 73130 ==

== ENCOUNTER 2024-09-12 11:09 | Outpatient (REF) | payer BC, SELFPAY ==
--- NOTE | ~2024-09-12 | XR_ITS ---
EXAMINATION: XR HAND, RIGHT CLINICAL INFORMATION: M79.641 - Pain in right hand COMPARISON: None available. TECHNIQUE: PA, lateral, and oblique views of the right hand. FINDINGS: No fracture, dislocation, or suspicious bone lesion. 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 No gross periarticular erosions. No periarticular osteopenia. Carpal bones intact and normally aligned. Soft tissues appear normal aside from diffuse vascular calcifications. XR/XR hand RT min 3V IMPRESSION: 1. No acute findings right hand and wrist. 2. Arthritic changes first through third MCP joints, most pronounced in the first MCP joint. Cannot exclude inflammatory arthropathy. Electronically signed by: Alec Man MD 09/15/2024 08:15 AM [email or web address]
--- OUTSIDE RECORDS SUMMARY | 2024-09-16 13:43 | XMS_ITS | Clinical Summary ---
Author Organization [facility] Address [phone] [facility] [place] [address] Care Team Providers Care Veneer Jointer Returner Name Role Phone Orin Joshi NP Primary Care Provider [phone] Allergies No known active allergies Medications Medication Sig Dispensed Refills Start Date End Date Status simvastatin (ZOCOR) 20 MG tablet Take 20 mg by mouth nightly. Active metformin HCl (METFORMIN ORAL) Take 500 tablets by mouth 2 (two) times a day. Active lisinopril (PRINIVIL,ZESTRIL) 10 MG tablet Take 10 mg by mouth daily. Active omega 0-htn-ozo-fish oil 1,000 mg (120 mg-180 mg) Cap [...] Medical Devices Not on file Care Teams Veneer Jointer Returner Relationship Specialty Start Date End Date Orin Joshi NP [address] [place] [id number] PCP - General 11/26/20 Additional Source Comments The information contained in this document represents components of the legal health record. It is not the complete legal health record.[facility]
--- OUTSIDE RECORDS SUMMARY | 2024-09-16 13:44 | XMS_ITS | Data Portability ---
Author Organization [facility], [facility] Address [address] [place] [address] Care Team Providers Care Wellness Guide Name Role Phone WANDY BABCOCK Bulk Fluids Handler CAROLINA YNAEZ Primary Care Provider AYDEE CLARKE Primary Care Provider [phone] Drink Waiter [facility] Evp Managing Director [facility] Urologist Assessment Encounter Date Assessment Date Assessment LastModified [...] Details Appointments LAB Follow-Up 2024 07:30A [facility] Not available Not available Not available Wellness Visit 30 2024 09:15A M Aydee Clarke, PABLO Not available Not available Not available Lab HbA1c (hemoglob in A1c), blood 2022 024 [facility], [address], [place], [address], 08/09/2023 10:57:33 Referral gastroent erologist referral - per dentist as significa nt erosion of enamel 2022 023 [facility], [address] [facility], [place], [address], 09/28/2023 12:31:18 Procedures None recorded. Surgeries None recorded. Imaging XR, ribs, unilatera l - eval for fractured ribs, s/p fall on stone wall on L side 2023 024 [facility] ([facility]), [address], [place], [address], 11/02/2023 10:18:03 Medication Orders simvastat in 20 mg tablet 2023 024 [facility]/Pharmacy #[id number], [address] [place], [address], 05/15/2024 08:59:23 metformin ER 500 mg tablet,ex tended release [address] [facility] [place]Pharmacy #[id number], [address] [place], [address], 05/15/2024 08:59:23 lisinopri l 10 mg tablet 2023 024 [facility]/Pharmacy #0818, [address] [place], [address], 05/15/2024 08:59:22 ibuprofen 800 mg tablet 2023 024 [facility]/Pharmacy #0818, [address] [place] [address], [address], 11/13/2023 10:26:24 lisinopri l 10 mg tablet 2023 024 [facility]/Pharmacy #0818, [address] [place], [address], 11/13/2023 10:26:18 ibuprofen 800 mg tablet 2023 024 [facility]/Pharmacy #0818, [address] [place], [address], 11/02/2023 08:27:07 sildenafi l 50 mg tablet 2022 [facility] [address] [place] [address], [address], 11/13/2023 09:54:42 Patient TargetsNo targets recorded. Patient Instructions Encounter Date Encounter Id Patient Instructions Last Modified By Organization Details Last Modified Time 11/10/2022 [id number] high cholesterol lifestyle changes pkeough Not available 11/10/2022 09:18:51 Well Visit 50 to 65: Care Instructions pkeough Not available 11/10/2022 09:18:50 11/13/2023 [id number] high blood pressure: care instructions pkeough Not available 11/13/2023 10:26:16 learning about high blood pressure pkeough Not available 11/13/2023 10:26:16 05/15/2024 [id number] high blood pressure: care instructions pkeough Not available 05/15/2024 08:59:20 learning about high blood pressure pkeough Not available 05/15/2024 08:59:20 Reason for Referral Evp Managing Director Referral for Erosion of teeth per dentist [...] furth er confi rmati on Not Available [address], [address], 11/02/2022 11:36:14 11/03/19 23 11/02/2022 HGB A1C estimated average glucose 137.0 mg/dL Not Available [address], [address], 11/02/2022 11:36:14 11/03/19 23 11/02/2022 BASIC METAB OLIC PANEL glucose 151 mg/dL 70-100 high Not Available [address], [address], 11/02/2022 15:34:56 11/03/19 23 11/02/2022 BASIC METAB OLIC PANEL BUN 17 mg/dL 7-18 Not Available [address], [address], 11/02/2022 15:34:56 11/03/19 23 11/02/2022 BASIC METAB OLIC PANEL creatinine 1.0 mg/dL 0.8-1. 3 Not Available [address], [address], 11/02/2022 15:34:56 11/03/19 23 11/02/2022 BASIC METAB OLIC PANEL B/C 17.0 ratio Not Available [address], [address], 11/02/2022 15:34:56 11/03/19 23 11/02/2022 BASIC METAB [...] be used in pregn babak. Not Available [address], [address], 11/02/2022 15:34:56 11/03/19 23 11/02/2022 BASIC METAB OLIC PANEL sodium 138 mmol/ L 136-14 5 Not Available [address], [address], 11/02/2022 15:34:56 11/03/19 23 11/02/2022 BASIC METAB OLIC PANEL potassium 4.3 mmol/ L 3.5-5. 1 Not Available [address], [address], 11/02/2022 15:34:56 11/03/19 23 11/02/2022 BASIC METAB OLIC PANEL chloride 102 mmol/ L 96-107 Not Available [address], [address], 11/02/2022 15:34:56 11/03/19 23 11/02/2022 BASIC METAB OLIC PANEL anion gap 9.2 5.0-15 .0 Not Available [address], [address], 11/02/2022 15:34:56 11/03/19 23 11/02/2022 BASIC METAB OLIC PANEL CO2 27 mmol/ L 21-32 Not Available [address], [address], 11/02/2022 15:34:56 11/03/19 23 11/02/2022 BASIC METAB OLIC PANEL calcium 8.9 mg/dL 8.5-10 .3 Not Available [address], [address], 11/02/2022 15:34:56 11/03/19 23 11/02/2022 LIPID PANEL cholesterol 143 mg/dL <200 mg/dl Sudhir able 200-2 39 mg/dl Borde rline High >240 mg/dl High Not Available [address], [address], 11/02/2022 15:34:57 11/03/19 23 11/02/2022 LIPID PANEL triglyceride s 317 mg/dL high <150 mg/dL Viki l 150-1 99 mg/dL Borde rline High 200-4 99 mg/dL High >500 mg/dL Very High Not Available [address], [address], 11/02/2022 15:34:57 11/03/19 23 11/02/2022 LIPID PANEL direct HDL 38 mg/dL <40 mg/dl - Major Risk for CHD >60 mg/dl - Negat berta Risk for CHD Not Available [address], [address], 11/02/2022 15:34:57 11/03/19 23 11/02/2022 DIREC T [...] r is not neces maisha. Not Available [address], [address], 11/02/2022 16:48:05 05/03/20 23 05/03/2023 HGB A1C hemoglobin A1C 7.1 % 4.8-6. [...] furth er confi rmati on Not Available [address], [address], 05/03/2023 12:05:19 05/03/20 23 05/03/2023 HGB A1C estimated average glucose 157.1 mg/dL Not Available [address], [address], 05/03/2023 12:05:19 05/03/20 23 05/03/2023 BASIC METAB OLIC PANEL glucose 173 mg/dL 70-100 high Not Available [address], [address], 05/03/2023 12:12:20 05/03/20 23 05/03/2023 BASIC METAB OLIC PANEL BUN 17 mg/dL 7-18 Not Available [address], [address], 05/03/2023 12:12:20 05/03/20 23 05/03/2023 BASIC METAB OLIC PANEL creatinine 1.0 mg/dL 0.8-1. 3 Not Available [address], [address], 05/03/2023 12:12:20 05/03/20 23 05/03/2023 BASIC METAB OLIC PANEL B/C 17.0 ratio Not Available [address], [address], 05/03/2023 12:12:20 05/03/2005/03/2023 BASIC METAB OLIC PANEL [...] be used in pregn babak. Not Available [address], [address], 05/03/2023 12:12:20 05/03/2005/03/2023 BASIC METAB OLIC PANEL sodium 138 mmol/ L 136-14 5 Not Available [address], [address], 05/03/2023 12:12:20 05/03/2005/03/2023 BASIC METAB OLIC PANEL potassium 4.2 mmol/ L 3.5-5. 1 Not Available [address], [address], 05/03/2023 12:12:20 05/03/2005/03/2023 BASIC METAB OLIC PANEL chloride 102 mmol/ L 96-107 Not Available [address], [address], 05/03/2023 12:12:20 05/03/20 23 05/03/2023 BASIC METAB OLIC PANEL anion gap 11.9 5.0-15 .0 Not Available [address], [address], 05/03/2023 12:12:20 05/03/2005/03/2023 BASIC METAB OLIC PANEL CO2 24 mmol/ L 21-32 Not Available [address], [address], 05/03/2023 12:12:20 05/03/2005/03/2023 BASIC METAB OLIC PANEL calcium 9.0 mg/dL 8.5-10 .3 Not Available [address], [address], 05/03/2023 12:12:20 05/03/2005/03/2023 LIPID PANEL cholesterol 148 mg/dL <200 mg/dl Sudhir able 200-2 39 mg/dl Borde rline High >240 mg/dl High Not Available [address], [address], 05/03/2023 12:12:21 05/03/2005/03/2023 LIPID PANEL triglyceride s 323 mg/dL high <150 mg/dL Viki l 150-1 99 mg/dL Borde rline High 200-4 99 mg/dL High >500 mg/dL Very High Not Available [address], [address], 05/03/2023 12:12:21 05/03/2005/03/2023 LIPID PANEL direct HDL 42 mg/dL <40 mg/dl - Major Risk for CHD >60 mg/dl - Negat berta Risk for CHD Not Available [address], [address], 05/03/2023 12:12:21 05/03/2005/03/2023 DIREC T LDL direct [...] r is not terrimeaghan ferrera. Not Available [address], [address], 05/03/2023 14:38:05 05/03/20 23 05/03/2023 MICRO ALBUM IN/CR EATIN INE RATIO PANEL , URINE microalbumin 8.0 mg/L 1.3-20 .0 Not Available [address], [address], 05/03/2023 15:48:25 05/03/20 23 05/03/2023 MICRO ALBUM IN/CR EATIN INE RATIO PANEL , URINE creatinine urine 139.3 mg/dL 30.0-1 25.0 high Not Available [address], [address], 05/03/2023 15:48:25 05/03/20 23 05/03/2023 MICRO ALBUM IN/CR EATIN INE RATIO PANEL , URINE microalb/cre at ratio 5.7 mg/g_ creat 0.0-29 .0 Not Available [address], [address], 05/03/2023 15:48:25 08/09/19 24 08/09/2023 BASIC METAB OLIC PANEL glucose 168 mg/dL 70-100 high Not Available [address], [address], 08/09/2023 10:55:05 08/09/19 24 08/09/2023 BASIC METAB OLIC PANEL BUN 17 mg/dL 7-18 Not Available [address], [address], 08/09/2023 10:55:05 08/09/19 24 08/09/2023 BASIC METAB OLIC PANEL creatinine 1.1 mg/dL 0.8-1. 3 Not Available [address], [address], 08/09/2023 10:55:05 08/09/19 24 08/09/2023 BASIC METAB OLIC PANEL B/C 15.5 ratio Not Available [address], [address], 08/09/2023 10:55:05 08/09/19 24 08/09/2023 BASIC METAB [...] be used in pregn babak. Not Available [address], [address], 08/09/2023 10:55:05 08/09/19 24 08/09/2023 BASIC METAB OLIC PANEL sodium 139 mmol/ L 136-14 5 Not Available [address], [address], 08/09/2023 10:55:05 08/09/19 24 08/09/2023 BASIC METAB OLIC PANEL potassium 4.3 mmol/ L 3.5-5. 1 Not Available [address], [address], 08/09/2023 10:55:05 08/09/19 24 08/09/2023 BASIC METAB OLIC PANEL chloride 102 mmol/ L 96-107 Not Available [address], [address], 08/09/2023 10:55:05 08/09/19 24 08/09/2023 BASIC METAB OLIC PANEL anion gap 10.8 5.0-15 .0 Not Available [address], [address], 08/09/2023 10:55:05 08/09/19 24 08/09/2023 BASIC METAB OLIC PANEL CO2 26 mmol/ L 21-32 Not Available [address], [address], 08/09/2023 10:55:05 08/09/19 24 08/09/2023 BASIC METAB OLIC PANEL calcium 8.9 mg/dL 8.5-10 .3 Not Available [address], [address], 08/09/2023 10:55:05 08/09/19 24 08/09/2023 HGB A1C [...] furth er confi rmati on Not Available [address], [address], 08/09/2023 10:57:32 08/09/19 24 08/09/2023 HGB A1C estimated average glucose 157.1 mg/dL Not Available [address], [address], 08/09/2023 10:57:32 10/25/19 24 10/25/2023 HGB A1C [...] furth er confi rmati on Not Available [address], [address], 10/25/2023 11:15:39 10/25/19 24 10/25/2023 HGB A1C estimated average glucose 139.9 mg/dL Not Available [address], [address], 10/25/2023 11:15:39 10/25/19 24 10/25/2023 BASIC METAB OLIC PANEL glucose 149 mg/dL 70-100 high Not Available [address], [address], 10/25/2023 16:27:42 10/25/19 24 10/25/2023 BASIC METAB OLIC PANEL BUN 21 mg/dL 7-18 high Not Available [address], [address], 10/25/2023 16:27:42 10/25/19 24 10/25/2023 BASIC METAB OLIC PANEL creatinine 1.0 mg/dL 0.8-1. 3 Not Available [address], [address], 10/25/2023 16:27:42 10/25/19 24 10/25/2023 BASIC METAB OLIC PANEL B/C 21.0 ratio Not Available [address], [address], 10/25/2023 16:27:42 10/25/19 24 10/25/2023 BASIC METAB [...] be used in pregn babak. Not Available [address], [address], 10/25/2023 16:27:42 10/25/19 24 10/25/2023 BASIC METAB OLIC PANEL sodium 139 mmol/ L 136-14 5 Not Available [address], [address], 10/25/2023 16:27:42 10/25/19 24 10/25/2023 BASIC METAB OLIC PANEL potassium 4.4 mmol/ L 3.5-5. 1 Not Available [address], [address], 10/25/2023 16:27:42 10/25/19 24 10/25/2023 BASIC METAB OLIC PANEL chloride 101 mmol/ L 96-107 Not Available [address], [address], 10/25/2023 16:27:42 10/25/19 24 10/25/2023 BASIC METAB OLIC PANEL anion gap 12.9 5.0-15 .0 Not Available [address], [address], 10/25/2023 16:27:42 10/25/19 24 10/25/2023 BASIC METAB OLIC PANEL CO2 25 mmol/ L 21-32 Not Available [address], [address], 10/25/2023 16:27:42 10/25/19 24 10/25/2023 BASIC METAB OLIC PANEL calcium 9.1 mg/dL 8.5-10 .3 Not Available [address], [address], 10/25/2023 16:27:42 10/25/19 24 10/25/2023 LIPID PANEL cholesterol 113 mg/dL <200 mg/dl Sudhir able 200-2 39 mg/dl Borde rline High >240 mg/dl High Not Available [address], [address], 10/25/2023 16:27:43 10/25/19 24 10/25/2023 LIPID PANEL triglyceride s 205 mg/dL <150 mg/dL Viki l 150-1 99 mg/dL Borde rline High 200-4 99 mg/dL High >500 mg/dL Very High Not Available [address], [address], 10/25/2023 16:27:43 10/25/19 24 10/25/2023 LIPID PANEL direct HDL 42 mg/dL <40 mg/dl - Major Risk for CHD >60 mg/dl - Negat berta Risk for CHD Not Available [address], [address], 10/25/2023 16:27:43 10/25/19 24 10/25/2023 LDL - [...] 0-1 risk facto r is not jose ferrera. Not Available [address], [address], 10/25/2023 16:27:44 10/25/19 24 10/26/2023 IMMUN OGLOB ULIN A immunoglobul in A 125 mg/dL 47-310 normal Not Available [facility] [address], [address], 10/26/2023 16:02:40 10/25/19 24 10/26/2023 TISSU E TRANS GLUTA SANDRINE E AB, IGA tissue transglutami nase Ab, IgA <1.0 U/mL normal Value Inter preta tion ----- ----- ----- ---- <15.0 Antib tobias not detec audelia > or = 15.0 Antib tobias detec audelia Not Available [facility] [address], [place], [address], 10/26/2023 16:02:41 01/02/20 24 01/02/2024 POC GLU POC glu 179 70 - 100 high Not Available [facility] [address] [place], [address], 01/04/2024 09:10:15 05/08/20 24 05/08/2024 HGB A1C [...] furth er confi rmati on Not Available [address], [address], 05/08/2024 11:51:31 05/08/2005/08/2024 HGB A1C estimated average glucose 151.3 mg/dL Not Available [address], [address], 05/08/2024 11:51:31 05/08/2005/08/2024 MICRO ALBUM IN/CR EATIN INE RATIO PANEL , URINE microalbumin 21.0 mg/L 1.3-20 .0 high Not Available [address], [address], 05/08/2024 14:38:50 05/08/2005/08/2024 MICRO ALBUM IN/CR EATIN INE RATIO PANEL , URINE creatinine urine 121.7 mg/dL 30.0-1 25.0 Not Available [address], [address], 05/08/2024 14:38:50 05/08/20 24 05/08/2024 MICRO ALBUM IN/CR EATIN INE RATIO PANEL , URINE microalb/cre at ratio 17.3 mg/g_ creat 0.0-29 .0 Not Available [address], [address], 05/08/2024 14:38:50 05/08/20 24 05/09/2024 BASIC METAB OLIC PANEL glucose 182 mg/dL 70-100 high Not Available [address], [address], 05/09/2024 15:14:00 05/08/20 24 05/09/2024 BASIC METAB OLIC PANEL BUN 15 mg/dL 7-18 Not Available [address], [address], 05/09/2024 15:14:00 05/08/20 24 05/09/2024 BASIC METAB OLIC PANEL creatinine 1.1 mg/dL 0.8-1. 3 Not Available [address], [address], 05/09/2024 15:14:00 05/08/2005/09/2024 BASIC METAB OLIC PANEL B/C 13.6 ratio Not Available [address], [address], 05/09/2024 15:14:00 05/08/2005/09/2024 BASIC METAB OLIC PANEL [...] be used in pregn babak. Not Available [address], [address], 05/09/2024 15:14:00 05/08/2005/09/2024 BASIC METAB OLIC PANEL sodium 140 mmol/ L 136-14 5 Not Available [address], [address], 05/09/2024 15:14:00 05/08/2005/09/2024 BASIC METAB OLIC PANEL potassium 4.9 mmol/ L 3.5-5. 1 Not Available [address], [address], 05/09/2024 15:14:00 05/08/2005/09/2024 BASIC METAB OLIC PANEL chloride 101 mmol/ L 96-107 Not Available [address], [address], 05/09/2024 15:14:00 05/08/20 24 05/09/2024 BASIC METAB OLIC PANEL anion gap 9.0 5.0-15 .0 Not Available [address], [address], 05/09/2024 15:14:00 05/08/20 24 05/09/2024 BASIC METAB OLIC PANEL CO2 30 mmol/ L 21-32 Not Available [address], [address], 05/09/2024 15:14:00 05/08/20 24 05/09/2024 BASIC METAB OLIC PANEL calcium 9.5 mg/dL 8.5-10 .3 Not Available [address], [address], 05/09/2024 15:14:00 11/02/19 24 11/02/2023 XR, ribs, unila teral CLINIC AL HISTOR Y: Left-s ided chest wall pain after a fall. Histor y of old fractu res. TECHNI QUE: At least 3 views of the left ribs are obtain ed. COMPAR SANDEE: 2020, 017 FINDIN GS: There are multicut line operator ior and latera l fractu res of the left fourth , fifth, sixth ribs. There are fractu re along the latera l aspect of the left sevent h, eighth and ninth ribs. There are fractu re of along the multicut line operator ior and beata latera l aspect [...] ation recomm ended. Vinh Thurston ana: Heladio valiente Christoshady ms [facility] ([facility]) [address] , [place], [address], 11/13/2023 10:06:59 Result Notes None recorded. Problems Name Problem SNOMED Code Status Onset Date Resolution Date Notes Provider Name and Address Organization Details Recorded Time Benign essential hypertensi on 1095047 Active Not Available [facility] 2 09:32:40 Neuropathy due to diabetes mellitus 299674320 Active Not Available [facility] 2 09:32:40 Alcohol dependence 44105398 Active 2015 Not Available [facility] 2 09:32:40 Amputated toe 184074770 Active 2018 Not Available [facility] 2 09:32:40 Obesity 600931110 Active 2021 Aydee Clarke NP [address] [place] [address], [address] , [facility] 2 09:06:14 Basal cell carcinoma of skin 591759980 Active 2021 Bina Chopra NP [address] [place] [address], [address] , [facility] 2 08:37:19 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 610523136 Active 2021 Aydee Clarke NP [address] [place] [address], [address] , [facility] 2 10:05:16 Mixed hyperlipid emia 596588011 Active 2006 Not Available [facility] 2 09:32:40 Injury of finger 93891320 Completed 200003/01/2012 Aydee Clarek NP [address] [place] [address], [address] , [facility] 6 10:22:10 Testicular hypofuncti on 984588927 Completed 200603/01/2012 Aydee Clarke NP [address] [place] [address], [address] , [facility] 6 10:22:10 Essential hypertensi on 13977464 Completed 200003/01/2012 Aydee Clarke NP [address] [place] [address], [address] , [facility] 6 10:22:10 Diabetes mellitus 12207071 Completed 02/26/2014 Aydee Clarke NP [address] [place], [address] , [facility] 6 10:22:10 Type 2 diabetes mellitus without complicati on 120813552 Active 2006 Not Available [facility] 2 09:32:40 Insect bite to trunk - nonvenomou s 563485021 Completed 03/01/2012 Aydee Clarke NP [address] [place] [address], [address] , [facility] 6 10:22:10 Benign essential hypertensi on 6765306 Completed 200603/01/2012 Aydee Clarke NP [address] [place] [address], [address] , [facility] 6 10:22:10 Atrial fibrillati on 23257336 Completed 03/01/2012 Aydee Clarke NP [address] [place] [address], [address] , [facility] 6 10:22:10 Morbid obesity 644337000 Completed 200603/01/2012 Aydee Clarke NP [address] [place] [address], [address] , [facility] 6 10:22:10 Open angle with borderline findings Active 2006 Not Available [facility] 2 09:32:40 Disorder of peripheral autonomic nervous system 424189849 Completed 03/01/2012 Aydee Clarke NP [address] [place], [address] , [facility] 6 10:22:10 Disorder of nervous system due to type 2 diabetes mellitus 751130785 Completed 200603/01/2012 Aydee Clarke NP [address] [place] [address], [address] , [facility] 6 10:22:10 Malaise and fatigue 512857518 Completed 200603/01/2012 Aydee Clarke NP [address] [place] [address], [address] , [facility] 6 10:22:10 Problem Notes None recorded. Procedures Surgical History Date Name Laterality Status Provider Name and Address Organization Details Recorded Time 2 Obesity counseling completed Aydee Clarke NP [address] [place] [address], [address], [facility] 11/03/2021 09:05:56 2 prevention-card iovascular risk reduction counseling completed Aydee Clarke NP [address] [place] [address], [address], [facility] 11/03/2021 09:05:36 1 Katiana - Colonoscopy completed Mynor Saab MD [address] [place] [address], [address], [facility] 11/26/2020 07:46:53 1 prevention-card iovascular risk reduction counseling completed Esther Melendez [facility] 10/28/2020 07:54:46 1 prevention-vianey al alcohol misuse screening completed Esther Melendez [facility] 10/28/2020 07:54:46 0 prevention-card iovascular risk reduction counseling completed Esther Melendez [facility] 05/13/2020 10:57:32 0 prevention-vianey al alcohol misuse screening completed Esther Melendez [facility] 05/13/2020 10:57:32 5 Destruction of skin lesion completed Montana Foreman III, MD [address] [place] [address], [address], [facility] 01/05/2015 10:59:27 Imaging Results Imaging Date Name Status LastModified by Organiz ation Details LastModified Time 11/02/2023 XR, ribs, unilateral completed [facility] ([facility]) [address], [place], [address], 11/13/2023 10:06:59 Procedure Notes None recorded. Medical [...] 02/09 completed pt as stopped taking this nc 02-09-17 KB Not Available Not Available Not [...] completed Not Available Not Available Not Available tadalafil 20 mg tablet Take 1 tablet as needed by oral route. active Per Urology PRN (and 5mg daily) Not Available Not Available Not Available Fish Oil active Not Available Not Avai lable Not Available multivita min active Not Available Not Available Not Available tadalafil 5mg QD Per Urology active Not Available Not Available No t Available Fish Oil 300 mg-1,000 mg capsule [...] /min 97 % 97 % 30 kg/m2 96771.7 7 g 116 mm[Hg] 84 mm[Hg] [facility] 08:[facility]:13 Date Recorded Body height Body mass index (BMI) Body weight Heart rate Systolic blood pressure Diastolic blood pressure Provider Name and Address Organization Details Last Updated DateTime 3 168.28 cm 30.4 kg/m2 46131.5 5 g 81 /min 114 mm[Hg] 73 mm[Hg] [facility] 3 09:28:45 Date Recorded Body height Body mass index (BMI) Body weight Heart rate Oxygen saturation Oxygen saturation in Arterial blood by Pulse oximetry Systolic blood pressure Diastolic blood pressure Provider Name and Address Organization Details Last Updated DateTime 4 168.28 cm 31.8 kg/m2 95693.6 9 g 105 /min 99 % 99 % 150 mm[Hg] 82 mm[Hg] Samantha Galindo [facility] 4 08:15:04 Date Recorded Body height Body mass index (BMI) Body weight Oxygen saturation Oxygen saturation in Arterial blood by Pulse oximetry Heart rate Systolic blood pressure Diastolic blood pressure Systolic blood pressure Diastolic blood pressure Provider Name and Address Organization Details Last Updated DateTime 4 168.28 cm 31.1 kg/m2 93245.9 2 g 100 % 100 % 88 /min 125 mm[Hg] 84 mm[Hg] 133 mm[Hg] 74 mm[Hg] [facility] 4 11:24:46 Date Recorded Body height Body mass index (BMI) Body weight Oxygen saturation Oxygen saturation in Arterial blood by Pulse oximetry Heart rate Systolic blood pressure Diastolic blood pressure Provider Name and Address Organization Details Last Updated DateTime 4 168.28 cm 30.1 kg/m2 93574.3 7 g 97 % 97 % 77 /min 104 mm[Hg] 62 mm[Hg] Adrián Mayse [facility] 08:26:48 Social History Question Answer Notes LastModified by Organizat ion Details LastModified Time Tobacco Smoking Status Never Smoker checked 05-15-24 [facility]/15[facility]24 08:27:56 What Is Your Level Of Alcohol Consumption? Moderate 5 Days A Week- 4 Shot Glasses A Day Vodka [email or web address] Information not available 05/15/2024 Do You Wear A Helmet When Biking? Yes [email or web address] Information not available 06/24/2015 What Is Your Level Of Caffeine Consumption? None [email or web address] Information not available 05/13/2020 How Much Tobacco Do You Chew? None Information not available 12/31/2012 What Type Of Diet Are You Following? REGULAR [email or web address] Information not available 06/24/2015 Which Illicit Or Recreational Drugs Have You Used? No Denies IVDU Information not available 01/15/2018 Do You Or Have You Ever Used E-cigarettes Or Vape? 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 0 Information not available 12/31/2012 Are There Any Guns Present In Your Home? No [email or web address] Information not available 06/24/2015 Live Alone Or With Others? With Others [email or web address] Information not available 06/08/2011 Patient Has Health Care Proxy Signed And In Chart Yes [email or web address] Information not available 11/14/2022 Marital Status [email or web address] Informatio n not available 03/01/2012 Mosquito Repellent Used Routinely Yes Information not available 01/15/2018 What Was The Date Of Your Most Recent Tobacco Screening? 05/11/2022 05/11/22 CJ [email or web address] Information not available 05/11/2022 How Many Children Do You Have? 0 [email or web address] Information not available 06/08/2011 Seat Belts Used Routinely Yes [email or web address] Information not available 06/24/2015 Smoke Alarm In Home Yes [email or web address] Information not available 06/24/2015 Do You Or Have You Ever Used Smokeless Tobacco? Never Used Smokeless Tobacco 10/28/2019 TG [email or web address] Information not available 10/28/2019 How Much Tobacco Do You Smoke? No 05/11/22 CJ [email or web address] Information not available 05/11/2022 What Types Of Sporting Activities Do You Participate In? No Information not available 01/15/2018 General Stress Level Low [email or web address] Information not available 06/24/2015 Do You Use Sunscreen Routinely? Yes [email or web address] Information not available 06/24/2015 How Many Years Have You Smoked Tobacco? 0 [email or web address] Information not available 10/28/2019 Sex: Male Functional [...] Recorded Time Tdap 007 completed Not Available [facility] 06/07/2011 05:21:29 Tdap 007 completed Not Available [facility] 06/07/2011 05:21:29 pneumococcal polysaccharide PPV23 009 completed Not Available [facility] 08/09/2019 02:38:00 Td (adult), 2 Lf tetanus toxoid, preservative free, adsorbed 018 completed Not Available [facility] 08/09/2019 02:22:36 Influenza, split virus, quadrivalent, PF 022 cancelled patient objection Carolina Yanez D.O. [address] [place] [address], [phone], [facility] [place] 05/11/2022 11:18:26 Influenza, split virus, quadrivalent, PF 023 cancelled patient objection Nikole Pandya. [address] [place] [address], [phone], [facility] [place] 05/13/2023 15:47:02 COVID-19, mRNA, LNP-S, PF, 30 mcg/0.3 mL dose 021 completed BLAINE Vance, [facility] 06/03/2021 14:14:02 COVID-19, mRNA, LNP-S, PF, 30 mcg/0.3 mL dose 021 completed Esther Melendez CMA null, [facility] 06/03/2021 14:14:12 COVID-19, mRNA, LNP-S, PF, 100 mcg/0.5mL dose or 50 mcg/0.25mL dose 022 [facility] 14:21:46 Past Encounters Encounter ID Performer Location Encounter Start Date Encounter Closed Date Diagnosis/Indication Diagnosis SNOMED-CT Code Diagnosis ICD10 Code Diagnosis Note [id number] [facility], OFF[facility] [address] [place] [address] 08/28/2000 11:45:00 08/12/2008 02:02:29 [id number] [facility], [facility] [address] [place] [address] 09/07/2006 09:25:16 09/07/2006 13:17:47 [id number] [facility] - [address] [place] [address] 09/27/2006 09:47:41 09/27/2006 09:47:45 [id number] Eye Care, [address] [place] [address] 09/27/2006 10:01:46 09/27/2006 11:52:26 [id number] Eye Care, [address] [place] [address] 10/15/2006 14:29:42 10/15/2006 17:10:27 [id number] [facility], OFF[facility] [address] [place] [address] 10/17/2006 08:03:38 10/17/2006 09:08:25 [id number] [facility], OFFICE [address] [place] [address] [place] [id number] 01/09/2007 12:05:24 01/09/2007 14:30:41 [id number] [facility] - [address] [place] [id number] 01/10/2007 07:28:27 01/10/2007 07:28:32 [id number] [facility] - [address] [place] [address] 01/11/2007 08:57:27 01/11/2007 08:57:35 [id number] [facility] OFF[facility] [address] [place] [id number] 02/01/2007 08:12:35 02/01/2007 10:48:02 [id number] LAB - [facility] [address] [place] [address] 06/11/2007 07:56:03 06/11/2007 07:56:12 [id number] [facility], OFFICE [address] [place] [address] [place] [address] 06/25/2007 09:01:34 08/12/2008 02:02:29 [id number] Podiatry, [facility] [place] [address] 07/09/2007 09:05:27 07/10/2007 09:23:03 [id number] LAB - [address] [place] [address] 11/19/2007 10:32:30 11/19/2007 10:32:45 [id number] [facility] OFF[facility] [address] [place] [address] [place] [address] 05/12/2009 10:30:12 05/13/2009 08:35:11 [id number] [facility], [address] [place] [address] 06/09/2009 14:41:02 06/10/2009 09:44:59 [id number] Endocrino logy, [address] [place] [address] 06/23/2009 08:26:26 06/24/2009 09:26:23 [id number] Endocrino logy, [address] [place] [address] 08/19/2009 09:27:35 08/19/2009 14:10:39 [id number] Endocrino logy, [address] [place] [address] 11/18/2009 09:29:15 11/18/2009 10:41:01 [id number] [facility], OFFICE [address] [place] [address] [place] [address] 09/20/2010 12:01:55 09/20/2010 16:23:51 [id number] [facility], [address] [place] [address] 06/21/2011 09:53:16 06/21/2011 10:13:02 [id number] [facility], [address] [place] [address] 01/23/2012 08:10:14 01/23/2012 09:04:59 [id number] [facility], [address] [place] [address] 03/01/2012 08:33:47 03/01/2012 09:08:14 [id number] Dorina Coker , [facility], OFFICE [address] [place] [address] 12/31/2012 11:03:27 01/01/2013 07:35:53 [id number] Jessica [place] moore [facility], OFFICE [address] [place] [address] 05/19/2013 09:39:48 05/19/2013 09:56:44 Nonvenomous insect bite of multiple sites [id number] Amiray Ledesma , [facility], OFFICE [address] [place] [address] 08/28/2013 15:02:43 08/28/2013 15:25:22 Benign essential hypertension 7196027 continue to work on diet ,exercisea nd lowering salt intake as discussed Mixed hyperlipidemia 337287323 continue to work on diet and exercise as discussed Adult heal th examination 656777524 see Risk Assessment and Lifestyle Change Counseling section above Counseling [id number] Type 2 nora betes mellitus without complication 682952898 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 059509661 Disorder o f nervous system due to type 2 diabetes mellitus 206863210 [id number] Rosi Reyes , [facility], OFFICE [address] [place] [address] 02/26/2014 09:23:19 02/26/2014 09:55:23 Benign essential hypertension 9099888 continue to work on diet ,exercisea nd lowering salt intake as discussed Mixed hyperlipidemia 709148807 continue to work on diet and exercise as discussed Disorder o f nervous system due to type 2 diabetes mellitus 218027985 Foot neuropathy Neoplasm of skin 349632897 [id number] Montana Foreman III, MD , [facility], OFFICE [address] [place] [address] 01/05/2015 10:38:43 01/05/2015 10:57:32 Benign essential hypertension 1165125 continue to work on diet, exercise, and lowering salt intake as discussed Mixed hyperlipidemia 628388482 continue to work on diet and exercise as discussed Cholestero l is at goal Type 2 nora betes mellitus without complication 250291273 Actinic keratosis 747210055 Right shoulder x 2 [id number] Pilar Church MA , [facility], OFFICE [address] [place] [address] 02/23/2015 09:02:42 02/23/2015 09:28:05 Paronychia of toe 577346647 Diabetes mellitus 37342356 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 977795179 [id number] Aydee Clarke NP , [facility], OFFICE [address] [place] [address] 02/25/2015 09:28:28 02/25/2015 10:08:25 Paronychia of toe 379986225 Diabetes mellitus 50606624 Cellulitis of toe 32280275 [id number] [place], [facility], OFFICE [address] [place] [address] 02/26/2015 09:13:35 02/26/2015 09:42:40 Cellulitis of toe 12220411 Paronychia of toe 535982303 Diabetes mellitus 79716546 [id number] Aydee Clarke NP , [facility], OFFICE [address] [place] [address] 03/01/2015 09:16:53 03/01/2015 09:27:47 Cellulitis of toe 53562016 resolving will finish remaining 3 days of Bactrim DS bid. Again reviewed sxs of infection and will rto if they reoccur. [id number] PABLO Sommers, [facility], OFFICE [address] [place] [address] 06/24/2015 08:26:01 06/24/2015 09:06:08 Type 2 diabetes mellitus without complication 462304554 E11.9 A1C not at goal of <7.0 Up significan tly from December will increase metformin ER to 1000 mg bid will decrease ETOH, sugar drinks repeat labs 3 months- OV Mixed hyperlipidemia 267 616978 E78.2 Trigs are not at goal Will c/w omega fish oil 4000 mg qd will decrease ETOH and sugary drinks Continue to work on diet and exercise as discussed repeat labs 3 months and f/u OV Benign ess ential hypertension 9243051 I10 Blood pressure at goal . continue to work on diet, exercise, and lowering salt intake as discussed Adult [facility] th examination 432550852 Z00.00 see Risk Assessment and Lifestyle Change Counseling section above HM: Labs UTD Declines flu shot Counseling 454439076 Z71 .9 Alcohol dependence 25604 003 F10.20 discussed reducing ETOH intake discussed impact on blood sugar and triglyceri vi Shoulder pain 09013000 M 25.512 ? impingemen t will try 3-5 days of NSAIDs, alternate heat and ice will call if he reconsider PT Neuropathy due to diabetes mellitus 099525745 E11.40 stable discussed importance of checking feet regularly. [id number] Marcie Washington , [facility], OFFICE [address] [place] [address] 12/01/2015 09:44:27 12/01/2015 10:33:57 Type 2 diabetes mellitus without complication 920769726 E11.9 A1C at goal of <7.0 at 5.0 will c/w increase metformin 1000 mg bid c/w glyburide 2.5 mg qd discussed working on diet, ETOH reduction will repeat in 3 months to check for stability OV 6 months Mixed hyperlipidemia 267 234979 E78.2 Trigs much improved down from 699 to 158! great job Will c/w omega fish oil 4000 mg qd will decrease ETOH and sugary drinks Continue to work on diet and exercise as discussed repeat labs 3 months and f/u OV 6 months Benign ess ential hypertension 6334890 I10 Blood pressure at goal . 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 Adjustment disorder 1722 6007 F43.23 dealing with loss of 32 brother (OD) as well taking care of Mom [id number] Jarocho Browne MD , [facility], OFF[facility] [address] [place] [address] 01/25/2016 09:18:19 01/25/2016 10:06:23 Infection of toe 358317849 L08.9 in diabetic with neuropathy i informed him that this was a serious infection for him and that we must be observant augmentin for 12 days.he will rto for non response after 48 hrs, or for progressio n or onset fever Neuropathy due to diabetes mellitus 215136382 E11.40 [id number] Aydee Clarke NP , [facility], OFFICE [address] [place] [address] 06/28/2016 09:35:15 06/29/2016 09:39:46 Benign essential hypertension 5492121 I10 BP at goalc/w meds Neuropathy due to diabetes mellitus 204524681 E11.40 abn but stable discussed importance of checking feet regularly. Mixed hyperlipidemia 267 139297 E78.2 Trigs up from 158 to 388will c/w fish oildiscuss ed importance of ETOH reduction Type 2 nora betes mellitus without complication 644838971 E11.9 A1C very good at 5.7will get meter d/t ? of low blood sugarsIf getting lows discussed potentiall y reducing glyburideR F on med today Adult heal th examination 627696029 Z00.00 see Risk Assessment and Lifestyle Change Counseling section aboveHM: declines flu shot Counseling 152347970 Z71 .9 Alcohol dependence 77204 003 F10.20 discussed reducing ETOH intake- has not reduced discussed impact on blood sugar and triglyceri vi lhoping new job (no longer at [employer]) will help reduce [id number] Bina Chopra NP , [facility] [address] [place] [address] 10/10/2016 08:00:49 10/12/2016 15:46:30 Injury of ribs 140941204 S29.9XXA Alcohol dependence 37234 003 F10.20 Type 2 nora betes mellitus without complication 301654984 E11.9 [id number] Aydee Clarke NP , [facility], OFFICE [address] [place] [address] 01/09/2017 07:57:33 01/10/2017 09:04:13 Benign essential hypertension 8074334 I10 Blood pressure at goal of <140/90c/w lisinopril BMP utd wnl Mixed hyperlipidemia 267 266132 E78.2 LDL at goal of <100c/w simvastati ncontinue to work on diet and exercise as discussed Type 2 nora betes mellitus without complication 971088441 E11.9 A1C 5.0 with Goal <6.5doing well with more activity d/t jobno med changesmay consider reducing if c/w low A1Crto 6 months for PHA Neuropathy due to diabetes mellitus 566211651 E11.40 abn but stable discussed importance of checking feet regularly. 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 to d/c glyburide and CUT DOWN metformin to 1000 mg once dailywill recheck HbA1c in Jun [id number] Lety Matthew , [facility] [place] [address] [place] [address] 01/15/2018 10:28:34 01/15/2018 11:35:54 Type 2 diabetes mellitus without complication 793199356 E11.9 A1C 5.9 with Goal <6.5doing well with more activity d/t jobno med changesmay consider reducing if c/w low A1Crto 6 months for PHA Alcohol dependence 02320 003 F10.20 stable with slight decrease per pt3-4 drinks 5 x week Benign ess ential hypertension 2830349 I10 Blood pressure at goal of <140/90c/w lisinopril BMP utd wnl Neuropathy due to diabetes mellitus 386337017 E11.40 abn but stable discussed importance of checking feet regularly. Mixed hyperlipidemia 267 409388 E78.2 LDL at goal of <100c/w simvastati ncontinue to work on diet and exercise as discussed Active or passive immunization 936649475 Z23 Diabetic foot ulcer 3710 30241 E11.40 R foot 2nd toe with cellulitis will get xrayget bactrim DS bid x [address] Wang for wound care. [id number] Mitesh Cheng DPM Podiatry, [address] [place] [address] 01/30/2018 11:02:26 01/30/2018 14:26:05 Acute osteomyelitis of phalanx of toe 541754487 M86.179 Reviewed right foot xray notable for [...] post op day 0. Pain in toe 155162921 M7 9.674 Ulcer of toe 113091047 L 97.570 [id number] Carolina Yanez D.O. , [facility] [place]ICE [address] [place] [address] 01/30/2018 15:50:18 01/30/2018 18:24:23 Pre-surgery evaluation 133814378 Z01.818 ekg wnlThe patient is a low risk for perioperat berta cardiovasc ular complicati ons, and may proceed with surgery. Acute oste omyelitis of phalanx of toe 437118565 M86.179 R 2nd toe Benign ess ential hypertension 0041609 I10 Blood pressure at goal of <140/90c/w lisinopril BMP utd wnl Alcohol dependence 97572 003 F10.20 stable with slight decrease per pt3-4 drinks 5 x week [id number] Mitesh Cheng DPM Podiatry, [address] [address] 02/12/2018 10:26:41 02/12/2018 11:12:01 Acute osteomyelitis of phalanx of toe 691649800 M86.179 Reviewed right foot xray notable for erosions of distal aspect of distal phalanx s/p partial amputation of toe. Rx for augmentin sent to pharmacy for 10 day course. Dressing changed. Pain in toe 879009029 M7 9.674 will remove sutures in 1 week. [id number] Mitesh Cheng DPM Podiatry, [address] [address] 02/19/2018 08:51:40 02/19/2018 09:26:45 Acute osteomyelitis of phalanx of toe 015274397 M86.179 Reviewed right foot xray notable for erosions of distal aspect of distal phalanx s/p partial amputation of toe. Pain in toe 510976310 M7 9.674 Sutures removed today. Scab overlying incision removed and site bleeding area identified . Area was cleansed then new dressing was applied to the toe. Pt instructed to take abx to completion . Also to keep toe covered with gauze after daily dressing changes until area is healed up. RTC 2 weeks to re-eval. Ok to return to work tomorrow. [id number] Mitesh Cheng DPM Podiatry, [address] [address] 03/05/2018 08:38:01 03/07/2018 14:19:36 Acute osteomyelitis of phalanx of toe 629972221 M86.179 Reviewed right foot xray notable for erosions of distal aspect of distal phalanx s/p partial amputation of toe. Resolved, patient with clean margins. Pain in toe 452320816 M7 9.674 Right 2nd toe wound all healed up now. Pt ok to get toe wet. Counceled on need for diabetic shoes with custom insoles, as he will need wide width and extra depth shoe to accomodate toe deformitie s. RTC 3 months to re-eval. [id number] Mitesh Cheng DPM Podiatry, [address] [address] 05/07/2018 09:13:31 05/07/2018 09:50:36 Pain in toe 555045796 M79.674 Counseled on need for diabetic shoes with custom insoles, as he will need wide width and extra depth shoe to accomodate toe deformitie s. Orthotics agreement form was completed and signed today. Pt given a copy. We will check with her insurance about coverage. Patient is aware of cost. Cellulitis of toe 933923 04 L03.031 Ulcer of toe 965929622 L 97.509 Verbal consent was obtained. Right [...] in counseling and coordinati on of care. [id number] Mitesh Cheng DPM Podiatry, [address] [address] 05/21/2018 08:45:10 05/21/2018 16:20:21 Pain in toe 681367424 M79.674 Counseled on need for diabetic shoes [...] The scanned images were then sent to [facility] for fabricatio n. Specificat ions: full length, 45 jeff, flexible, cute wide, toe filler for right 2nd toe amputation .I spent 15 mins face to face with patient, more 50% spent in counseling and coordinati on of care. Cellulitis of toe 518688 04 L03.031 resolved Ulcer of toe 428000477 L 97.509 Verbal consent was obtained. Right [...] in counseling and coordinati on of care. [id number] Mitesh Cheng DPM Podiatry, [address] [address] 07/09/2018 09:09:03 07/10/2018 08:20:30 Pain in toe 378559001 M79.674 Pt was informed that breaking into fulltime wear of custom made functional foot orthotic devices should occur over a period of 10 to 14 days. On the day of steel pickler the orthotic devices, wear them for 1 [...] coordinati on of care. Cellulitis of toe 120478 04 L03.031 resolved Ulcer of toe 048789413 L 97.509 Verbal consent was obtained. Right 4th toe prepped and sterile instrument ation used to unroof blister draining serous drainage. Wound was dressed wtih betadine and dsd. Pt was given instructio ns to dress it accordingl y each day. Rx for abx sent to pharmacy. RTC 2 weeks. Not to get foot wet. [id number] Aydee Clarke NP , [facility] OFFICE [address] [place], [place] [address] 09/06/2018 14:25:20 09/06/2018 15:02:23 Adult health examination 770762037 Z00.00 see Risk Assessment and Lifestyle Change Counseling section aboveHM: labs utdcolonos copy due Counseling 603802813 Z71 .9 Depression screening 171 334400 Z13.89 1 out of 27depressi on screening tool administer ed, entered into emr, scored and discussed, time greater than 7.5 minutes Mixed hyperlipidemia 267 823206 E78.2 LDL at goal of <100c/w simvastati ncontinue to work on diet and exercise as discussed Benign ess ential hypertension 1039727 I10 BP at goal c/w lisinopril continue to work on diet, exercise, and lowering salt intake as discussed Type 2 nora betes mellitus without complication 412200732 E11.9 A1C 5.7 with Goal <6.5still high fasting bs at 157advised to reduce ETOH particular ly shots doing well with more activity d/t jobno med changesmay consider reducing if c/w low A1Crto 6 months for PHA Alcohol dependence 19279 003 F10.20 3-4 everyday after workis doing shotsadvis ed to reduce- pt agrees Neuropathy due to diabetes mellitus 625544731 E11.40 abn but stable discussed importance of checking feet regularly. Screening for malignant neoplasm of colon 091525359 Z12.11 Referral for a DIRECT booked colonoscop y. This patient is a healthy ASA Class 1 or 2 patient (only mild systemic disease), or a STABLE, well controlled insulin dependent diabetic. They do not have serious cardiac disease ie UT/angiopl asty within 1 year, symptomati c CHF; renal failure with CKD 4 or 5; take Coumadin, Plavix, Aggrenox, etc. Amputated toe 395214764 Z89.429 R 2nd toecheck feet daily [id number] Aydee Clarke NP , [facility] OFFICE [address] [place] [address] 03/10/2019 15:51:01 03/10/2019 16:23:56 Mixed hyperlipidemia 001535841 E78.2 LDL at goal of <100c/w simvastati ncontinue to work on diet and exercise as discussed Screening for malignant neoplasm of colon 960620159 Z12.11 Referral for a DIRECT booked colonoscop y. This patient is a healthy ASA Class 1 or 2 patient (only mild systemic disease), or a STABLE, well controlled insulin dependent diabetic. They do not have serious cardiac disease ie UT/angiopl asty within 1 year, symptomati c CHF; renal failure with CKD 4 or 5; take Coumadin, Plavix, Aggrenox, etc. Neuropathy due to diabetes mellitus 521042373 E11.40 abn but stable discussed importance of checking feet regularly. no open toe shoesneed to protect feet Amputated toe 896690857 Z89.429 R 2nd toecheck feet daily Benign ess ential hypertension 7370521 I10 BP at goal c/w lisinopril continue to work on diet, exercise, and lowering salt intake as discussed Disorder o f nervous system due to type 2 diabetes mellitus 714443320 E11.49 DM is szrbitr3l 5.8 which is great- at goaldiscus sed importance of foot carealread y had 1 amputation injury to L great toe- no open toe shoes Obesity 760182101 E66.9 BMI 30.5c/w low fat, low carb diet c/w regular activity Injury of toe 304159239 S99.922A likely paronychia of L great toeInterdi git is red, swollen with some warmthno painhx of osteomyeli tis with amputation xray todaystart keflex 500 mg tid x 7 days. Cramp in l ower limb associated with sleep 6854686156 22847 G47.62 advised increasing potassium with banana, sweet potatoeske ep hydrated with electrolyt estry diet tonic prior to bed [id number] Nikole Shoushtari . MD SEARS, [facility] [address] [place] [address] 10/28/2019 08:30:56 10/28/2019 15:14:19 Low back pain 645966011 M54.5 Low back strain, no alarming symptoms. Will treat with ice, muscle relaxers and NSAIDs. Do not take ibuprofen with meloxicam. Call us with any new neurologic symptoms. 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 [id number] PABLO Sommers, [facility] [address] [place] [address] 05/13/2020 10:57:05 05/14/2020 11:47:45 Adult health examination 808569119 Z00.00 see Risk Assessment and Lifestyle Change Counseling section aboveHM: labs utdcolonos copy due Counseling 119718022 Z71 .9 including cardiovasc ular risk reduction counseling Depression screening 171 406648 Z13.89 0 out of 27 phq 9mood is gooddepres dorys screening tool administer ed, entered into emr, scored and discussed, time greater than 7.5 minutes Screening for alcohol abuse 533708247 Z13.39 + auditwill work on decreasein g Amputated toe 726592667 Z89.429 R 2nd toecheck feet daily Type 2 nora betes mellitus without complication 736922359 E11.9 A1C 6.3 up from 5.8 but at Goal <6.5advise d to reduce ETOH particular ly shots doing well with more activity d/t jobno med changesrto 6 months for MM Alcohol dependence 59972 003 F10.20 Audit 43-4 everyday after work - drinking more with covid and less to do at nightis doing shotsadvis ed to reduce- pt agrees Mixed hyperlipidemia 267 687732 E78.2 Cholestero l is at goal LDL is 46Trigs are high at 281- will work on diet and less etoh Continue to work on diet and exercise as discussed Essential hypertension 31083921 I10 cannot check bpwill have him come in for bp checkif not at goal of < 130/80 will increase lisinopril to 20 mg [id number] Aydee Clarke NP , [facility] [address] [place] [address] 05/27/2020 09:04:01 05/28/2020 15:26:35 [id number] Carolina Ellis.Matt , [facility] [address] [place] [address] 10/28/2020 07:51:21 11/19/2020 16:22:56 Essential hypertension 85522847 I10 cannot check bpwill have him come in for bp checkif not at goal of < 130/80 will increase lisinopril to 20 mg Adult heal th examination 728367255 Z00.00 see Risk Assessment and Lifestyle Change Counseling section above HM: labs utd colonoscop y due Counseling 946993952 Z71 .9 including cardiovasc ular risk reduction counseling Screening for alcohol abuse 593860170 Z13.39 + auditwill work on decreasein g Mixed hyperlipidemia 267 335358 E78.2 Cholestero l is at goal LDL is 50 Trigs are high at 472- will work on diet and less etoh Continue to work on diet and exercise as discussed Amputated toe 661247783 Z89.429 R 2nd toecheck feet daily Type 2 nora betes mellitus without complication 841033804 E11.9 A1C 6.1 at Goal <6.5 advised to reduce ETOH doing well with more activity d/t job no med changes rto 6 months for MM Alcohol dependence 11807 003 F10.20 Audit 7 more with pandemic 3-4 everyday after work - drinking more with covid and less to do at night is doing shots advised to reduce- pt agrees Neuropathy due to diabetes mellitus 223575292 E11.40 abn but stable discussed importance of checking feet regularly. no open toe shoesneed to protect feet [id number] Dorina Zaman RN , [facility] [address] [address] [place] [address] 11/18/2020 08:16:03 11/19/2020 16:14:08 [id number] Yolette Ortiz RN [facility], [facility] [address] [place] [address] 11/26/2020 06:44:42 11/26/2020 12:47:20 [id number] Nikole Pandya . , [facility] [address] [place] [address] 06/03/2021 14:03:53 06/03/2021 14:47:31 Low back pain 763043830 M54.50 acute low back pain x 4 hoursNo Red FlagsCan use heat/ice to see if its helpfulMot rin for pain as neededTria l muscle relaxants for spasmsAdvi sed if no improvemen t over the next couple of weeks to f/u for PT referral Benign ess ential hypertension 3902904 I10 BP at goalBP goal < 130/80labs up to date [id number] Jarocho Browne MD , [facility] [address] [place] [address] 06/13/2021 08:59:47 06/13/2021 09:45:05 Rib pain 730384554 R07.81 fall to a raised corner of a deck yesterdayn ow with positional muscular pain Left Ant chest wall and axilla. wincingly tender [id number] rib mid axillary line although no ecchymosis or wound is visibleL CTA he has experience d rib injuries before, so understand s duration of activity limiting pain with leftarm and truncal movementsr ec ibuprofen' image fo rproignost ics [id number] Aydee Clarke NP , [facility] [address] [place] [address] 11/03/2021 08:30:54 11/03/2021 09:02:37 Adult health examination 868251304 Z00.00 see Risk Assessment and Lifestyle Change Counseling section above HM: labs utd colonoscop y 11/26/2020 W/ 5 YR REPEATEYE EXAM 10/23/2020- WILL SCHEDULE Counseling 273107381 Z71 .9 including cardioascu lar risk reduction counseling Depression screening 171 703151 Z13.31 neg phq 9depressio n screening tool administer ed, entered into emr, scored and discussed, time greater than 7.5 minutes Screening for alcohol abuse 044204768 Z13.39 + auditwill work on decreasein g Amputated toe 691218087 Z89.429 R 2nd toecheck feet daily Alcohol dependence 55750 003 F10.20 Audit 7 more with pandemic and loss of dog 3-4 2x week and then on weekends advised to reduce- pt agrees Essential hypertension 32654698 I10 Bp not at goal of < 130/80 but just aboveno med changes Neuropathy due to diabetes mellitus 100879567 E11.40 A1C 6,4- sugars stablec/w metformin 1500 mg qdabn but stable discussed importance of checking feet regularly. no open toe shoesneed to protect feet Mixed hyperlipidemia 267 554318 E78.2 Cholestero l is at goal LDL is 45 Trigs are better 222 Continue to work on diet and exercise as discussed Obesity 573452023 E66.9 BMI 30.6keep low fat, low carb dietc/w regular activity [id number] Carolina Yanez D.O. , [facility] [address] [place] [address] [place] [address] 05/11/2022 09:14:18 05/11/2022 09:53:17 Essential hypertension 78928224 I10 Bp at goal of < 130/80no med changesf/u 3 mos Mixed hyperlipidemia 267 752460 E78.2 Cholestero l is at goal LDL is 45 Trigs 371- will work on better diet Continue to work on diet and exercise as discussed Amputated toe 694154995 Z89.429 R 2nd toecheck feet daily Obesity 453406824 E66.9 BMI 30.6keep low fat, low carb dietc/w regular activity Alcohol dependence 43647 003 F10.20 more with pandemic and loss of dog but had returned to baseline 3-4 2x week Neuropathy due to diabetes mellitus 331518799 E11.40 A1C 6.6 - slight increase from previous but overall sugars stablec/w metformin 1500 mg qdabn but stable discussed importance of checking feet regularly. 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 Genesis Coats [id number] Aydee Clarke NP , [facility] [address] [place] [address] 11/10/2022 08:27:54 11/10/2022 09:18:34 Adult health examination 046931115 Z00.00 see Risk Assessment and Lifestyle Change Counseling section above HM: labs utd colonoscop y 11/26/2020 W/ 5 YR REPEATEYE EXAM 10/23/2020- WILL SCHEDULE Depression screening 171 542546 Z13.31 depression screening tool administer edneg phq 9 Screening for alcohol abuse 154115001 Z13.39 Alcohol use screening tool administer edaudit 55 days a week- more on weekends. 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 no open toe shoesneed to protect feet Primary er ectile dysfunction 350899138 N52.9 Disorder o f nervous system due to type 2 diabetes mellitus 736932534 E11.49 A1C 6.4 -c/w metformin 1500 mg qdfully abn foot exam but stable discussed importance of checking feet regularly. 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, etohwill repeat a1c 3 mos [id number] Yani Villegas RN Endoscopy , [facility] [address] [place] [address] 01/02/2024 06:45:56 01/02/2024 10:51:16 [id number] Junie Parekh MD , [facility] [address] [place] [address] 11/02/2023 08:07:58 11/02/2023 10:18:03 Rib pain 497432989 R07.81 Acute L rib pain s/p tripping on broken stairs and falling on L side on stone wall, 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 149581949 E11.3299 mild OUutd on exam 04/2023fol lowed by [place] yan get exam notes Type 2 nora betes mellitus without complication 094363782 E11.9 A1C 6.5 at Goal <6.5 advised to reduce ETOH doing well with more activity d/t job no med changes rto 6 months for MM Obesity 503445483 E66.9 BMI 30.4keep low fat, low carb dietc/w regular activity Alcohol dependence 89220 003 F10.20 continues with etoh 3-4 days week more on weekends d iscussed impact on EDencourag ed reduction Benign ess ential hypertension 8683795 I10 BP at goal c/w lisinopril continue to work on diet, exercise, and lowering salt intake as discussed Neuropathy due to diabetes mellitus 319382505 E11.40 A1C 6.5c/w metformin 2000 mg qdfully abn foot exam but stable discussed importance of checking feet regularly. no open toe shoesneed to protect feet Mixed hyperlipidemia 267 197764 E78.2 Cholestero l is at goal at 30c/w statinCont inue to work on diet and exercise as discussed Adult heal th examination 229829930 Z00.00 see Risk Assessment and Lifestyle Change Counseling section above HM: labs utd colonoscop y 11/26/2020 W/ 5 YR REPEATEYE EXAM 04/2023- WILL SCHEDULE declines psa Depression screening 171 569336 Z13.31 depression screening tool administer edneg phq 9mood is good Screening for alcohol abuse 565531022 Z13.39 Alcohol use screening tool administer edaudit 8etoh dependence discussed impact on sugars, kidney/braden er fx- understand s Screening for malignant neoplasm of prostate 087018078 Z12.5 If you have a prostate, the [...] expectancy .declines testing this year Rib pain 897996343 R07.8 1 injury 2 weeks agorf of ibuprofen Disorder o f nervous system due to type 2 diabetes mellitus 657286128 E11.49 A1C 6.5c/w metformin 1500 mg qdfully abn foot exam but stable discussed importance of checking feet regularly. 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 715287609 E11.3299 mild OUutd on exam 06/2023fol lowed by [facility] Type 2 nora betes mellitus without complication 343695794 E11.9 A1C 6.9 at Goal <7.0 advised to reduce ETOH doing well with more activity d/t job no med changes rto 6 months for MM Obesity 175406854 E66.9 BMI 30.4keep low fat, low carb dietc/w regular activity Alcohol dependence 88976 003 F10.20 etoh 4-5 x week few drinkswork ing on reducing weekday drinkingun derstands impact on blood sugar, liver Benign ess ential hypertension 0004699 I10 BP at goal c/w lisinopril continue to work on diet, exercise, and lowering salt intake as discussed Neuropathy due to diabetes mellitus 540780660 E11.40 A1C 6.9 up from 6.5is going to focus on diet, less weekday etohc/w metformin 2000 mg qdfully abn foot exam but stable discussed importance of checking feet regularly. no open toe shoesneed to protect feet Mixed hyperlipidemia 267 708297 E78.2 Cholestero l is at goal at 30c/w statinCont inue to work on diet and exercise as discussed Influenza vaccination declined 786825099 Z28.21 Health Concerns Section Related Observation LastModified by Organization Detai ls LastModified Time None Recorded Concern Status LastModified by Organization Details LastModified Time None Recorded Advance Directives Directive None Recorded Payers Encounter Date Sequence Insurance Name Policy Number Policy Padron Covered Member ID Padron Member ID Guarantor Name 11/10/[address] [facility] [employer] 111 Timo Meng [id number] Timo Meng 05/10/2023 1 [employer] 111 Timo Meng [id number] Timo Meng 11/02/[address] [facility] [employer] 111 Timo Meng [id number] Timo Meng 11/13/[address] [facility] [employer] [place] 111 Timo Meng [id number] Timo Meng 05/15/[address] [facility] [employer] [place] 111 Timo Meng [id number] Timo Meng Notes Date Note Type Note Provider Name [...] decline in exercise capacity Aydee Clarke NP [address] [place] [address], [phone], [facility] 11/10/2022 09:20:06 3 text/html VMG DiabetesReported bypatient.Review [...] in exercise capacity saw dentist concern re: [id number] up from 6.4- has beenetoh 3-4 days a week - few after work Nikole Pandya. [address] [place] [address], [phone], [facility] [place] 05/13/2023 15:47:09 4 text/html 10/30/2023 injury at [...] better than the ice. Junie Parekh MD [address] [place] [address], [phone], [facility] [place] 11/02/2023 09:54:13 4 text/html Physical Exam/MaleReported bypatient.PHAPatient [...] identified barriers to care Context:Diabetes;Peripheral vascular disease (17247) Associated Symptoms:no muscle pain; no dyspnea; no [...] decline in exercise capacity Aydee Clarke NP [address] [place], [address], [facility] [place] 11/13/2023 13:01:29 text/html VMG DiabetesReported bypatient.Review finger sticks:Fasting`150 Duration:chronic [...] identified barriers to care Context:Diabetes;Peripheral vascular disease (15016) Associated Symptoms:no muscle pain; no dyspnea; no [...] keeping it to weekends Aydee Clarke NP [address] [place], [address], [facility] [place] 05/15/2024 08:59:35
--- OUTSIDE RECORDS SUMMARY | 2024-09-16 13:44 | XMS_ITS | Encounter Summary ---
Author Organization [facility] Address [phone] [place] [address] Care Team Providers Care Biological Sciences Instructor Name Role Phone Anali Yanez DO Primary Care Provider [phone] Orin Joshi NP Primary Care Provider [phone] Encounter Details Date Type Department Care Team (Late st Contact Info) Description 02/04/2018 Procedure Pass [place] Admitting Dept - Virtual Department [address] [place] [address] Social History Tobacco Use Types Packs/Day Years [...] on filedocumented in this encounter Care Teams Biological Sciences Instructor Relationship Specialty Start Date End Date Anali Yanez DO [address] [place] [id number] [email or web address] PCP - General Internal Medicine 01/31/18 11/25/20 Orin Joshi NP [address] [place] [address] PCP - General 11/26/20 documented as of this encounter Additional Source Comments The information contained in this document represents components of the legal health record. It is not the complete legal health record.[facility]
--- OUTSIDE RECORDS SUMMARY | 2024-09-16 13:44 | XMS_ITS | Encounter Summary ---
Author Organization [facility] Address [phone] [facility] [place] [address] Care Team Providers Care Equipment Operator/Laborer Name Role Phone Anali Yanez DO Primary Care Provider [phone] Orin Joshi NP Primary Care Provider [phone] Encounter Details Date Type Department Care Team (Latest Contact Info) Description 11/23/2020 Transcribe Orders Virtual Department [address] [place] [address] Mynor Saab MD [address] [place] [address] [email or web address] Pre-procedure lab exam (Primary Dx) Social History [...] (11/23/2020 1:55 PM EDT) COVID-19 Comment [id number] COVID Testing Status Sent to [facility] 11/23/2020 1:55 PM EDT 11/23/2020 4:51 PM EDT Mynor Saab MD BODY FLUIDS AND STOO LS ORDERABLES [address] [place] [address] documented in this encounter Visit Diagnoses Diagnosis Pre-procedure lab exam- Primary Pre-procedural laboratory examination documented in this encounter Care Teams Equipment Operator/Laborer Relationship Specialty Start Date End Date Anali Yanez DO [address] [place] [address] [email or web address] PCP - General Internal Medicine 01/31/18 11/25/20 Orin Joshi NP [address] [place] [address] PCP - General 11/26/20 documented as of this encounter Additional Source Comments The information contained in this document represents components of the legal health record. It is not the complete legal health record.[facility]
--- OUTSIDE RECORDS SUMMARY | 2024-09-16 13:44 | XMS_ITS | Data Portability ---
Author Organization [facility], , [facility] OFF[place] Address [address] [place] [address] [place] [address] Care Team Providers Care Sociology Faculty Member Name Role Phone WANDY BABCOCK Ultrasound Sonographer CAROLINA RUIZ Primary Care Provider [phone] AYDEE CLARKE Primary Care Provider [facility] Tie Sawyer [phone] [facility] Urologist [phone] Assessment Encounter Date Assessment Date Assessment LastModified [...] Details Appointments LAB Follow-Up 2024 07:30A M [facility] Lab Not available Not available Not available Wellness Visit 30 2024 09:15A M Aydee Clarke NP Not available Not available Not available Lab HbA1c (hemoglob in A1c), blood 2022 024 [facility], [address], [place], [address], 08/09/2023 10:57:33 Referral gastroent erologist referral - per dentist as significa nt erosion of enamel 2022 023 [facility], [address] [facility], [place], [address], 09/28/2023 12:31:18 Procedures None recorded. Surgeries None recorded. Imaging XR, ribs, unilatera l - eval for fractured ribs, s/p fall on stone wall on L side 2023 024 [facility] (Imaging), [address], [place], [address], 11/02/2023 10:18:03 Medication Orders simvastat in 20 mg tablet 2023 024 [facility]/Pharmacy #0818, [address] [place] [address], [address], 05/15/2024 08:59:23 metformin ER 500 mg tablet,ex tended release 24 hr 2023 024 [facility] [address] [place], [address], 05/15/2024 08:59:23 lisinopri l 10 mg tablet 2023 024 [facility]/Pharmacy #0818, [address] [place], [address], 05/15/2024 08:59:22 ibuprofen 800 mg tablet 2023 [email or web address] [address] [place] [address], [address], 11/13/2023 10:26:24 lisinopri l 10 mg tablet 2023 024 [facility]/Pharmacy #0818, [address] [place], [address], 11/13/2023 10:26:18 ibuprofen 800 mg tablet 2023 024 [facility]/Pharmacy #0818, [address] [place], [address], 11/02/2023 08:27:07 sildenafi l 50 mg tablet 2022 023 [facility], [address] [place] [address], [address], 11/13/2023 09:54:42 Patient TargetsNo targets recorded. Patient Instructions Encounter Date Encounter Id Patient Instructions Last Modified By Organization Details Last Modified Time 11/10/2022 [id number] high cholesterol lifestyle changes pkeough Not available 11/10/2022 09:18:51 Well Visit 50 to 65: Care Instructions pkeough Not available 11/10/2022 09:18:50 11/13/2023 [id number] high blood pressure: care instructions pkeough Not available 11/13/2023 10:26:16 learning about high blood pressure pkeough Not available 11/13/2023 10:26:16 05/15/2024 [id number] high blood pressure: care instructions pkeough Not available 05/15/2024 08:59:20 learning about high blood pressure pkeough Not available 05/15/2024 08:59:20 Reason for Referral Tie Sawyer Referral for Erosion of teeth per dentist [...] furth er confi rmati on Not Available [address], [address], 11/02/2022 11:36:14 11/03/19 23 11/02/2022 HGB A1C estimated average glucose 137.0 mg/dL Not Available [address], [address], 11/02/2022 11:36:14 11/03/19 23 11/02/2022 BASIC METAB OLIC PANEL glucose 151 mg/dL 70-100 high Not Available [address], [address], 11/02/2022 15:34:56 11/03/19 23 11/02/2022 BASIC METAB OLIC PANEL BUN 17 mg/dL 7-18 Not Available [address], [address], 11/02/2022 15:34:56 11/03/19 23 11/02/2022 BASIC METAB OLIC PANEL creatinine 1.0 mg/dL 0.8-1. 3 Not Available [address], [address], 11/02/2022 15:34:56 11/03/19 23 11/02/2022 BASIC METAB OLIC PANEL B/C 17.0 ratio Not Available [address], [address], 11/02/2022 15:34:56 11/03/19 23 11/02/2022 BASIC METAB [...] be used in pregn babak. Not Available [address], [address], 11/02/2022 15:34:56 11/03/19 23 11/02/2022 BASIC METAB OLIC PANEL sodium 138 mmol/ L 136-14 5 Not Available [address], [address], 11/02/2022 15:34:56 11/03/19 23 11/02/2022 BASIC METAB OLIC PANEL potassium 4.3 mmol/ L 3.5-5. 1 Not Available [address], [address], 11/02/2022 15:34:56 11/03/19 23 11/02/2022 BASIC METAB OLIC PANEL chloride 102 mmol/ L 96-107 Not Available [address], [address], 11/02/2022 15:34:56 11/03/19 23 11/02/2022 BASIC METAB OLIC PANEL anion gap 9.2 5.0-15 .0 Not Available [address], [address], 11/02/2022 15:34:56 11/03/19 23 11/02/2022 BASIC METAB OLIC PANEL CO2 27 mmol/ L 21-32 Not Available [address], [address], 11/02/2022 15:34:56 11/03/19 23 11/02/2022 BASIC METAB OLIC PANEL calcium 8.9 mg/dL 8.5-10 .3 Not Available [address], [address], 11/02/2022 15:34:56 11/03/19 23 11/02/2022 LIPID PANEL cholesterol 143 mg/dL <200 mg/dl Sudhir able 200-2 39 mg/dl Borde rline High >240 mg/dl High Not Available [address], [address], 11/02/2022 15:34:57 11/03/19 23 11/02/2022 LIPID PANEL triglyceride s 317 mg/dL high <150 mg/dL Viki l 150-1 99 mg/dL Borde rline High 200-4 99 mg/dL High >500 mg/dL Very High Not Available [address], [address], 11/02/2022 15:34:57 11/03/19 23 11/02/2022 LIPID PANEL direct HDL 38 mg/dL <40 mg/dl - Major Risk for CHD >60 mg/dl - Negat berta Risk for CHD Not Available [address], [address], 11/02/2022 15:34:57 11/03/19 23 11/02/2022 DIREC T [...] r is not neces maisha. Not Available [address], [address], 11/02/2022 16:48:05 05/03/20 23 05/03/2023 HGB A1C [...] furth er confi rmati on Not Available [address], [address], 05/03/2023 12:05:19 05/03/20 23 05/03/2023 HGB A1C estimated average glucose 157.1 mg/dL Not Available [address], [address], 05/03/2023 12:05:19 05/03/20 23 05/03/2023 BASIC METAB OLIC PANEL glucose 173 mg/dL 70-100 high Not Available [address], [address], 05/03/2023 12:12:20 05/03/20 23 05/03/2023 BASIC METAB OLIC PANEL BUN 17 mg/dL 7-18 Not Available [address], [address], 05/03/2023 12:12:20 05/03/20 23 05/03/2023 BASIC METAB OLIC PANEL creatinine 1.0 mg/dL 0.8-1. 3 Not Available [address], [address], 05/03/2023 12:12:20 05/03/20 23 05/03/2023 BASIC METAB OLIC PANEL B/C 17.0 ratio Not Available [address], [address], 05/03/2023 12:12:20 05/03/2005/03/2023 BASIC METAB OLIC PANEL [...] shoul d not be used in pregn abbak. Not Available [address], [address], 05/03/2023 12:12:20 05/03/2005/03/2023 BASIC METAB OLIC PANEL sodium 138 mmol/ L 136-14 5 Not Available [address], [address], 05/03/2023 12:12:20 05/03/20 23 05/03/2023 BASIC METAB OLIC PANEL potassium 4.2 mmol/ L 3.5-5. 1 Not Available [address], [address], 05/03/2023 12:12:20 05/03/20 23 05/03/2023 BASIC METAB OLIC PANEL chloride 102 mmol/ L 96-107 Not Available [address], [address], 05/03/2023 12:12:20 05/03/20 23 05/03/2023 BASIC METAB OLIC PANEL anion gap 11.9 5.0-15 .0 Not Available [address], [address], 05/03/2023 12:12:20 05/03/2005/03/2023 BASIC METAB OLIC PANEL CO2 24 mmol/ L 21-32 Not Available [address], [address], 05/03/2023 12:12:20 05/03/2005/03/2023 BASIC METAB OLIC PANEL calcium 9.0 mg/dL 8.5-10 .3 Not Available [address], [address], 05/03/2023 12:12:20 05/03/2005/03/2023 LIPID PANEL cholesterol 148 mg/dL <200 mg/dl Sudhir able 200-2 39 mg/dl Borde rline High >240 mg/dl High Not Available [address], [address], 05/03/2023 12:12:21 05/03/2005/03/2023 LIPID PANEL triglyceride s 323 mg/dL high <150 mg/dL Viki l 150-1 99 mg/dL Borde rline High 200-4 99 mg/dL High >500 mg/dL Very High Not Available [address], [address], 05/03/2023 12:12:21 05/03/2005/03/2023 LIPID PANEL direct HDL 42 mg/dL <40 mg/dl - Major Risk for CHD >60 mg/dl - Negat berta Risk for CHD Not Available [address], [address], 05/03/2023 12:12:21 05/03/2005/03/2023 DIREC T LDL direct [...] r is not terrimeaghan ferrera. Not Available [address], [address], 05/03/2023 14:38:05 05/03/20 23 05/03/2023 MICRO ALBUM IN/CR EATIN INE RATIO PANEL , URINE microalbumin 8.0 mg/L 1.3-20 .0 Not Available [address], [address], 05/03/2023 15:48:25 05/03/20 23 05/03/2023 MICRO ALBUM IN/CR EATIN INE RATIO PANEL , URINE creatinine urine 139.3 mg/dL 30.0-1 25.0 high Not Available [address], [address], 05/03/2023 15:48:25 05/03/20 23 05/03/2023 MICRO ALBUM IN/CR EATIN INE RATIO PANEL , URINE microalb/cre at ratio 5.7 mg/g_ creat 0.0-29 .0 Not Available [address], [address], 05/03/2023 15:48:25 08/09/19 24 08/09/2023 BASIC METAB OLIC PANEL glucose 168 mg/dL 70-100 high Not Available [address], [address], 08/09/2023 10:55:05 08/09/19 24 08/09/2023 BASIC METAB OLIC PANEL BUN 17 mg/dL 7-18 Not Available [address], [address], 08/09/2023 10:55:05 08/09/19 24 08/09/2023 BASIC METAB OLIC PANEL creatinine 1.1 mg/dL 0.8-1. 3 Not Available [address], [address], 08/09/2023 10:55:05 08/09/19 24 08/09/2023 BASIC METAB OLIC PANEL B/C 15.5 ratio Not Available [address], [address], 08/09/2023 10:55:05 08/09/19 24 08/09/2023 BASIC METAB [...] be used in pregn babak. Not Available [address], [address], 08/09/2023 10:55:05 08/09/19 24 08/09/2023 BASIC METAB OLIC PANEL sodium 139 mmol/ L 136-14 5 Not Available [address], [address], 08/09/2023 10:55:05 08/09/19 24 08/09/2023 BASIC METAB OLIC PANEL potassium 4.3 mmol/ L 3.5-5. 1 Not Available [address], [address], 08/09/2023 10:55:05 08/09/19 24 08/09/2023 BASIC METAB OLIC PANEL chloride 102 mmol/ L 96-107 Not Available [address], [address], 08/09/2023 10:55:05 08/09/19 24 08/09/2023 BASIC METAB OLIC PANEL anion gap 10.8 5.0-15 .0 Not Available [address], [address], 08/09/2023 10:55:05 08/09/19 24 08/09/2023 BASIC METAB OLIC PANEL CO2 26 mmol/ L 21-32 Not Available [address], [address], 08/09/2023 10:55:05 08/09/19 24 08/09/2023 BASIC METAB OLIC PANEL calcium 8.9 mg/dL 8.5-10 .3 Not Available [address], [address], 08/09/2023 10:55:05 08/09/19 24 08/09/2023 HGB A1C [...] osis of diabe arabella but may need fur er confi rmati on Not Available [address], [address], 08/09/2023 10:57:32 08/09/19 24 08/09/2023 HGB A1C estimated average glucose 157.1 mg/dL Not Available [address], [address], 08/09/2023 10:57:32 10/25/19 24 10/25/2023 HGB A1C [...] furth er confi rmati on Not Available [address], [address], 10/25/2023 11:15:39 10/25/19 24 10/25/2023 HGB A1C estimated average glucose 139.9 mg/dL Not Available [address], [address], 10/25/2023 11:15:39 10/25/19 24 10/25/2023 BASIC METAB OLIC PANEL glucose 149 mg/dL 70-100 high Not Available [address], [address], 10/25/2023 16:27:42 10/25/19 24 10/25/2023 BASIC METAB OLIC PANEL BUN 21 mg/dL 7-18 high Not Available [address], [address], 10/25/2023 16:27:42 10/25/19 24 10/25/2023 BASIC METAB OLIC PANEL creatinine 1.0 mg/dL 0.8-1. 3 Not Available [address], [address], 10/25/2023 16:27:42 10/25/19 24 10/25/2023 BASIC METAB OLIC PANEL B/C 21.0 ratio Not Available [address], [address], 10/25/2023 16:27:42 10/25/19 24 10/25/2023 BASIC METAB [...] be used in pregn babak. Not Available [address], [address], 10/25/2023 16:27:42 10/25/19 24 10/25/2023 BASIC METAB OLIC PANEL sodium 139 mmol/ L 136-14 5 Not Available [address], [address], 10/25/2023 16:27:42 10/25/19 24 10/25/2023 BASIC METAB OLIC PANEL potassium 4.4 mmol/ L 3.5-5. 1 Not Available [address], [address], 10/25/2023 16:27:42 10/25/19 24 10/25/2023 BASIC METAB OLIC PANEL chloride 101 mmol/ L 96-107 Not Available [address], [address], 10/25/2023 16:27:42 10/25/19 24 10/25/2023 BASIC METAB OLIC PANEL anion gap 12.9 5.0-15 .0 Not Available [address], [address], 10/25/2023 16:27:42 10/25/19 24 10/25/2023 BASIC METAB OLIC PANEL CO2 25 mmol/ L 21-32 Not Available [address], [address], 10/25/2023 16:27:42 10/25/19 24 10/25/2023 BASIC METAB OLIC PANEL calcium 9.1 mg/dL 8.5-10 .3 Not Available [address], [address], 10/25/2023 16:27:42 10/25/19 24 10/25/2023 LIPID PANEL cholesterol 113 mg/dL <200 mg/dl Sudhir able 200-2 39 mg/dl Borde rline High >240 mg/dl High Not Available [address], [address], 10/25/2023 16:27:43 10/25/19 24 10/25/2023 LIPID PANEL triglyceride s 205 mg/dL <150 mg/dL Viki l 150-1 99 mg/dL Borde rline High 200-4 99 mg/dL High >500 mg/dL Very High Not Available [address], [address], 10/25/2023 16:27:43 10/25/19 24 10/25/2023 LIPID PANEL direct HDL 42 mg/dL <40 mg/dl - Major Risk for CHD >60 mg/dl - Negat berta Risk for CHD Not Available [address], [address], 10/25/2023 16:27:43 10/25/19 24 10/25/2023 LDL - [...] r is not jose ferrera. Not Available [address], [address], 10/25/2023 16:27:44 10/25/19 24 10/26/2023 IMMUN OGLOB ULIN A immunoglobul in A 125 mg/dL 47-310 normal Not Available [facility] [address], [address], 10/26/2023 16:02:40 10/25/19 24 10/26/2023 TISSU E TRANS GLUTA SANDRINE E AB, IGA tissue transglutami nase Ab, IgA <1.0 U/mL normal Value Inter preta tion ----- ----- ----- ---- <15.0 Antib tobias not detec audelia > or = 15.0 Antib tobias detec audelia Not Available [facility] [address], [place], [address], 10/26/2023 16:02:41 01/02/20 24 01/02/2024 POC GLU POC glu 179 70 - 100 high Not Available [facility] [address] [place], [address], 01/04/2024 09:10:15 05/08/20 24 05/08/2024 HGB A1C [...] furth er confi rmati on Not Available [address], [address], 05/08/2024 11:51:31 05/08/2005/08/2024 HGB A1C estimated average glucose 151.3 mg/dL Not Available [address], [address], 05/08/2024 11:51:31 05/08/2005/08/2024 MICRO ALBUM IN/CR EATIN INE RATIO PANEL , URINE microalbumin 21.0 mg/L 1.3-20 .0 high Not Available [address], [address], 05/08/2024 14:38:50 05/08/2005/08/2024 MICRO ALBUM IN/CR EATIN INE RATIO PANEL , URINE creatinine urine 121.7 mg/dL 30.0-1 25.0 Not Available [address], [address], 05/08/2024 14:38:50 05/08/20 24 05/08/2024 MICRO ALBUM IN/CR EATIN INE RATIO PANEL , URINE microalb/cre at ratio 17.3 mg/g_ creat 0.0-29 .0 Not Available [address], [address], 05/08/2024 14:38:50 05/08/20 24 05/09/2024 BASIC METAB OLIC PANEL glucose 182 mg/dL 70-100 high Not Available [address], [address], 05/09/2024 15:14:00 05/08/20 24 05/09/2024 BASIC METAB OLIC PANEL BUN 15 mg/dL 7-18 Not Available [address], [address], 05/09/2024 15:14:00 05/08/20 24 05/09/2024 BASIC METAB OLIC PANEL creatinine 1.1 mg/dL 0.8-1. 3 Not Available [address], [address], 05/09/2024 15:14:00 05/08/2005/09/2024 BASIC METAB OLIC PANEL B/C 13.6 ratio Not Available [address], [address], 05/09/2024 15:14:00 05/08/2005/09/2024 BASIC METAB OLIC PANEL [...] be used in pregn babak. Not Available [address], [address], 05/09/2024 15:14:00 05/08/2005/09/2024 BASIC METAB OLIC PANEL sodium 140 mmol/ L 136-14 5 Not Available [address], [address], 05/09/2024 15:14:00 05/08/2005/09/2024 BASIC METAB OLIC PANEL potassium 4.9 mmol/ L 3.5-5. 1 Not Available [address], [address], 05/09/2024 15:14:00 05/08/2005/09/2024 BASIC METAB OLIC PANEL chloride 101 mmol/ L 96-107 Not Available [address], [address], 05/09/2024 15:14:00 05/08/20 24 05/09/2024 BASIC METAB OLIC PANEL anion gap 9.0 5.0-15 .0 Not Available [address], [address], 05/09/2024 15:14:00 05/08/20 24 05/09/2024 BASIC METAB OLIC PANEL CO2 30 mmol/ L 21-32 Not Available [address], [address], 05/09/2024 15:14:00 05/08/20 24 05/09/2024 BASIC METAB OLIC PANEL calcium 9.5 mg/dL 8.5-10 .3 Not Available [address], [address], 05/09/2024 15:14:00 11/02/19 24 11/02/2023 XR, ribs, unila teral CLINIC AL HISTOR Y: Left-s ided chest wall pain after a fall. Histor y of old fractu res. TECHNI QUE: At least 3 views of the left ribs are obtain ed. COMPAR SANDEE: 2020, 017 FINDIN GS: There are dining room server ior and latera l fractu res of the left fourth , fifth, sixth ribs. There are fractu re along the latera l aspect of the left sevent h, eighth and ninth ribs. There are fractu re of along the dining room server ior and beata latera l aspect s [...] Clinic al correl ation recomm ended. Vinh perez: Heladio Ibrahim ms [facility] (Imaging) [address], [place], [address], 11/13/2023 10:06:59 Result Notes None recorded. Procedures Surgical History Date Name Laterality Status Provider Name and Address Organization Details Recorded Time 01/02/2024 Katiana - EGD completed Mynor Saab MD [address] [place] [address], [id number], [facility] 01/02/2024 07:51:46 Imaging Results Imaging Date Name Status LastModified by Organiz ation Details LastModified Time 11/02/2023 XR, ribs, unilateral completed [facility] (Imaging) [address], [place], [address], 11/13/2023 10:06:59 Procedure Notes None recorded. Medical [...] You Wear A Helmet When Biking? Yes [email or web address] Information not available 06/24/2015 What Is Your Level Of Caffeine Consumption? None [email or web address] Information not available 05/13/2020 How Much Tobacco Do You Chew? None Information not available 12/31/2012 What Type Of Diet Are You Following? REGULAR [email or web address] Information not available 06/24/2015 Which Illicit Or Recreational Drugs Have You Used? No Denies [email or web address] Information not available 01/15/2018 Do You Or Have You Ever Used E-cigarettes Or Vape? 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 0 Information not available 12/31/2012 Are There Any Guns Present In Your Home? No [email or web address] Information not available 06/24/2015 Live Alone Or With Others? With Others [email or web address] Information not available 06/08/2011 Patient Has Health Care Proxy Signed And In Chart Yes [email or web address] Information not available 11/14/2022 Marital Status [email or web address] Informatio n not available 03/01/2012 Mosquito Repellent Used Routinely Yes Information not available 01/15/2018 What Was The Date Of Your Most Recent Tobacco Screening? 05/11/2022 05/11/22 CJ [email or web address] Information not available 05/11/2022 How Many Children Do You Have? 0 [email or web address] Information not available 06/08/2011 Seat Belts Used Routinely Yes [email or web address] Information not available 06/24/2015 Smoke Alarm In Home Yes [email or web address] Information not available 06/24/2015 Do You Or Have You Ever Used Smokeless Tobacco? Never Used Smokeless Tobacco 10/28/2019 TG Information not available 10/28/2019 How Much Tobacco Do You Smoke? No 05/11/22 CJ [email or web address] Information not available 05/11/2022 What Types Of Sporting Activities Do You Participate In? No Information not available 01/15/2018 General Stress Level Low [email or web address] Information not available 06/24/2015 Do You Use Sunscreen Routinely? Yes [email or web address] Information not available 06/24/2015 How Many Years Have You Smoked Tobacco? 0 [email or web address] Information not available 10/28/2019 Sex: Male Functional [...] SNOMED-CT Code Diagnosis ICD10 Code Diagnosis Note [id number] [facility] [place] [address] [place] [address] 08/28/2000 11:45:00 08/12/2008 02:02:29 [id number] [facility] [address] [place] [address] 09/07/2006 09:25:16 09/07/2006 13:17:47 [id number] LAB - [address] [place] [address] 09/27/2006 09:47:41 09/27/2006 09:47:45 [id number] Eye Care, [address] [place] [address] 09/27/2006 10:01:46 09/27/2006 11:52:26 [id number] [facility], [address] [place] [address] 10/15/2006 14:29:42 10/15/2006 17:10:27 [id number] [facility] [place] [address] [place] [address] 10/17/2006 08:03:38 10/17/2006 09:08:25 [id number] [facility] [address] [place] [address] 01/09/2007 12:05:24 01/09/2007 14:30:41 [id number] [facility] - [facility] [address] [place] [address] 01/10/2007 07:28:27 01/10/2007 07:28:32 [id number] [facility] - [facility] [address] [place] [address] 01/11/2007 08:57:27 01/11/2007 08:57:35 [id number] [facility] [address] [place] [address] 02/01/2007 08:12:35 02/01/2007 10:48:02 [id number] [facility] [address] [place] [address] 06/11/2007 07:56:03 06/11/2007 07:56:12 [id number] [facility] [address] [place] [address] 06/25/2007 09:01:34 08/12/2008 02:02:29 [id number] Podiatry, [facility] [address] [place] [address] 07/09/2007 09:05:27 07/10/2007 09:23:03 [id number] [facility] [address] [place] [address] 11/19/2007 10:32:30 11/19/2007 10:32:45 [id number] RENU [facility] [address] [place] [address] 05/12/2009 10:30:12 05/13/2009 08:35:11 [id number] [facility] [address] [place] [address] 06/09/2009 14:41:02 06/10/2009 09:44:59 [id number] Endocrino logy, [facility] [place] [address] 06/23/2009 08:26:26 06/24/2009 09:26:23 [id number] Endocrino logy, [facility] [address] [place] [address] 08/19/2009 09:27:35 08/19/2009 14:10:39 [id number] Endocrino logy, [facility] [address] [place] [address] 11/18/2009 09:29:15 11/18/2009 10:41:01 [id number] , [facility], [address] [place] [address] 09/20/2010 12:01:55 09/20/2010 16:23:51 [id number] , [address] [place] [address] 06/21/2011 09:53:16 06/21/2011 10:13:02 [id number] , [address] [place] [address] 01/23/2012 08:10:14 01/23/2012 09:04:59 [id number] , [facility], [address] [place] [address] 03/01/2012 08:33:47 03/01/2012 09:08:14 [id number] Dorina Coker , [address] [place] [address] 12/31/2012 11:03:27 01/01/2013 07:35:53 [id number] Jessica Mastrobert i , [address] [place] [address] 05/19/2013 09:39:48 05/19/2013 09:56:44 [id number] Ami Ledesma , [address] [place] [address] 08/28/2013 15:02:43 08/28/2013 15:25:22 [id number] Rosi Reyes , [address] [place] [address] 02/26/2014 09:23:19 02/26/2014 09:55:23 [id number] Montana Foreman III, MD , [address] [place] [address] 01/05/2015 10:38:43 01/05/2015 10:57:32 [id number] Pilar Church MA , [facility], [address] [place] [address] 02/23/2015 09:02:42 02/23/2015 09:28:05 [id number] PABLO Sommers, [facility] [address] [place] [address] [place] [id number] 1 02/25/2015 09:28:28 02/25/2015 10:08:25 [id number] JUAN Lewis, [facility] [address] [place] [address] [address] [place], [place] [id number] 1 02/26/2015 09:13:35 02/26/2015 09:42:40 [id number] PABLO Sommers, [facility] [address] [place] [address] [address] [place], [place] [id number] 1 03/01/2015 09:16:53 03/01/2015 09:27:47 [id number] PABLO Sommers, [facility] [address] [place] [address] [address] [place], [place] [id number] 1 06/24/2015 08:26:01 06/24/2015 09:06:08 [id number] Marcie Washington , [facility] [place] [address] [place] [address] [address] [place], [place] [id number] 1 12/01/2015 09:44:27 12/01/2015 10:33:57 [id number] Jarocho Browne MD , [facility] [place] [address] [place] [address] [address] [place], [place] [id number] 1 01/25/2016 09:18:19 01/25/2016 10:06:23 [id number] PABLO Sommers, [facility], [address] [place], [place] [id number] 1 06/28/2016 09:35:15 06/29/2016 09:39:46 [id number] PABLO Anna, [facility], [address] [place], [place] [id number] 1 10/10/2016 08:00:49 10/12/2016 15:46:30 [id number] PABLO Sommers, [facility] [place] [address] [place] [address] [address] [place], [place] [id number] 1 01/09/2017 07:57:33 01/10/2017 09:04:13 [id number] Carolina SEARS, [facility] [facility] [place] [address] [place] [address] DR [place], JUAN [address] 02/09/2017 11:28:09 02/09/2017 12:27:37 [id number] Lety SEARS, [facility] [place] [address] [place] [address] [place] [address] 01/15/2018 10:28:34 01/15/2018 11:35:54 [id number] Joudy-Radha Dinnall, DPM Podiatry, [facility] [address] [facility] [place] [address] 01/30/2018 11:02:26 01/30/2018 14:26:05 [id number] Carolina SEARS, [facility] [place] [address] [place] [address] 01/30/2018 15:50:18 01/30/2018 18:24:23 [id number] Joudy-Radha Dinnall, DPM Podiatry, [address] [place] [address] 02/12/2018 10:26:41 02/12/2018 11:12:01 [id number] Joudy-Radha Dinnall, DPM Podiatry, [facility] [address] [place] [address] 02/19/2018 08:51:40 02/19/2018 09:26:45 [id number] Joudy-Radha Dinnall, DPM Podiatry, [facility] [address] [place] [address] 03/05/2018 08:38:01 03/07/2018 14:19:36 [id number] Joudy-Radha Dinnall, DPM Podiatry, [address] [address] 05/07/2018 09:13:31 05/07/2018 09:50:36 [id number] Joudy-Radha Dinnall, DPM Podiatry, [address] [address] 05/21/2018 08:45:10 05/21/2018 16:20:21 [id number] Joudy-Radha Dinnall, DPM Podiatry, [address] [address] 07/09/2018 09:09:03 07/10/2018 08:20:30 [id number] PABLO Sommers, [facility] [place] [address] [place] [address] 09/06/2018 14:25:20 09/06/2018 15:02:23 [id number] PABLO Sommers, [address] [place] [address] 1 03/10/2019 15:51:01 03/10/2019 16:23:56 [id number] Nikole Pandya . MD SEARS, [facility] [address] [place] [address] 1 10/28/2019 08:30:56 10/28/2019 15:14:19 [id number] PABLO Sommers, [address] [place] [address] 05/13/2020 10:57:05 05/14/2020 11:47:45 [id number] PABLO Sommers, [address] [place] [address] 1 05/27/2020 09:04:01 05/28/2020 15:26:35 [id number] Carolina SEARS, [address] [place] [address] 1 10/28/2020 07:51:21 11/19/2020 16:22:56 [id number] Dorina Zaman RN , [address] [place] [address] 1 11/18/2020 08:16:03 11/19/2020 16:14:08 [id number] Yolette Ortiz RN [facility], [address] [place] [address] 11/26/2020 06:44:42 11/26/2020 12:47:20 [id number] Nikole Pandya . MD SEARS [facility] [address] [place] [address] 1 06/03/2021 14:03:53 06/03/2021 14:47:31 [id number] MD RENU Barreto, [address] [place] [address] 1 06/13/2021 08:59:47 06/13/2021 09:45:05 [id number] PABLO Sommers, [address] [place] [address] 11/03/2021 08:30:54 11/03/2021 09:02:37 [id number] Carolina Ruiz D.O. , [facility] [place] [address] [place] [address] [place] [address] 05/11/2022 09:14:18 05/11/2022 09:53:17 [id number] Aydee Clarke NP , [facility] [place] [address] [place] [address] [place] [address] 11/10/2022 08:27:54 11/10/2022 09:18:34 [id number] Nikole Pandya . , [facility] [place] [address] [place] [address] [place] [address] 05/10/2023 09:15:35 05/14/2023 08:33:22 [id number] Yani Villegas RN Endoscopy , [address] [place] [address] 1 01/02/2024 06:45:56 01/02/2024 10:51:16 [id number] Junie Parekh MD , [address] [place] [address] 11/02/2023 08:07:58 11/02/2023 10:18:03 [id number] Aydee Clarke NP , [address] [place] [address] 1 11/13/2023 09:46:52 11/13/2023 13:24:43 [id number] Aydee Clarke NP , [address] [place] [address] 05/15/2024 08:13:22 05/15/2024 10:18:36 Health Concerns Section Related Observation LastModified by Organization Detai ls LastModified Time None Recorded Concern Status LastModified by Organization Details LastModified Time None Recorded Advance Directives Directive None Recorded Payers Encounter Date Sequence Insurance Name Policy Number Policy Padron Covered Member ID Padron Member ID Guarantor Name 11/10/2022 1 [employer] [employer] 111 Timo Meng [id number] Timo Meng 05/10/2023 1 [place] [employer] 111 Timo Meng [id number] Timo Meng 11/02/2023 1 [place] [employer] [place] 111 Timo Meng [id number] Timo Meng 11/13/2023 1 [place] [employer] [place] 111 Timo Meng [id number] Timo Meng 05/15/2024 1 [employer] 111 Timo Meng [id number] Timo Meng
== END 2024-09-12 11:10 | disposition home or self-care (01) ==
LOC: HO.HOSX 11:09
PROVIDERS: Visit Provider Orthopaedic Surgery
DX: M79.641 Pain in right hand (principal); M65.4 Radial styloid tenosynovitis [de Quervain]; Z78.9 Other specified health status
CPT/HCPCS: 20550; 73130; J1100; J2003

== ENCOUNTER 2024-10-21 09:43 | Outpatient (AMB) | payer BC, SELFPAY ==
--- NOTE | 2024-10-21 09:45 | A.OFFVIS_ITS ---
Vital Signs 10/21/24 09:47 Height 5 ft 7 in Weight 190 lb BMI 29.8 Handedness Right Intake Visit Reasons: OV- Right De Quervain's tenosynovitis Intake Note: Timo is a 54 year old right hand dominant male who presents today for a follow up visit for his De Quervain's tenosynovitis, right hand. At his last visit on 09/12/24 he was fitted for a comfort cool brace to wear with daily activity and given a right thumb injection. Patient reports he changed his brace because the one we gave him was not tight enough. He has some days when his pain is not as bad however he still has worse days. Yesterday he had an exacerbation of pain and swelling of pain with no known reason. Allergies No Known Allergies Allergy (Verified 10/21/24 09:48) HPI HPI OV- Right De Quervain's tenosynovitis: Details: Timo is a 54 year old right hand dominant male who presents today for a follow up visit for his De Quervain's tenosynovitis, right hand. At his last visit on 09/12/24 he was fitted for a comfort cool brace to wear with daily activity and given a right thumb injection. Patient reports he changed his brace because the one we gave him was not tight enough. He has some days when his pain is not as bad however he still has worse days. Yesterday he had an exacerbation of pain and swelling of pain with no known reason. [facility] Social History Patient Tobacco Use Status: Never used Tobacco [place] [employer] [place] Review of Systems Const All systems reviewed & are unremarkable except as noted in HPI and below Physical Exam Vital Signs: BMI result Body Mass Index 29.8 Const General: cooperative, healthy appearing and no acute distress Orientation/consciousness: patient oriented x3 HEENT Head: Yes normocephalic and Yes atraumatic Eyes EOM: EOMs intact bilaterally Resp Effort & Inspection: normal respiratory effort and able to speak in complete sentences Cardio Jugular venous distension: no JVD Skin General skin exam: turgor normal Rashes: no rashes Neuro General: patient oriented x3 Extrem Other: Evaluation of Right Upper Extremity: The patient is alert, oriented, and in no acute distress Neuro: Median, Ulnar, Radial nerves motor and sensory intact and sensation is normal to the tips of all digits Vascular: Cap refill brisk ROM: He can make a fist and extend all his digits No locking or catching Skin: No lacerations or abrasions. General: No Ecchymosis. No Erythema or evidence of infection. Tender over the 1st dorsal compartment Positive Yakov test on the right No tenderness over the A1 trudi of the thumb, MCP joint, or basal joint Radiographs: 3 views of the right hand were taken and viewed by me today in clinic. They show no fractures, dislocations, or foreign bodies. 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 Psych Appearance: grossly normal Affect: normal affect Attitude: cooperative Assessment & Plan Assessment & Plan (1) De Quervain's tenosynovitis, right: Code(s): M65.4 - Radial styloid tenosynovitis [de Quervain] Category: Medical Plan 1. De Quervain tenosynovitis, right I educated the patient about the condition. I discussed both operative and nonoperative treatment options. The patient would like to proceed with surgery. The risks and benefits of operative treatment were discussed with the patient and the patient wishes to proceed with surgery. These risks include, but are not limited to, risk of damage to blood vessels, nerves, tendons, infection, recurrence, incomplete relief of preoperative symptoms, persistent pain, possible need for further surgery, and the risks associated with regional blocks and/or anesthesia. Plan is to take the patient to the operating room at some point in the next few weeks for the following procedures: 1. Right 1st dorsal compartment release under local All of the preoperative paperwork including the consent was discussed today. All of the patient's questions were answered in the clinic today. The patient understands that they will be in contact with our assembler surgical garment to discuss scheduling their procedure. Patient was sent a script for 2 weeks' worth of 600 mg ibuprofen for pain relief prior to surgery Patient denies diabetes, blood thinners, asthma, heart issues, lung issues, kidney issues, or current smoking. Medications: New ibuprofen 600 mg PO Q8H 14 days PRN 42 tabs 0RF pain Coding Level of Care Code Est Pt Level 4 (86591) Diagnoses De Quervain's tenosynovitis, right M65.4
[2024-10-21 09:47] VITALS: BMI 29.8
--- OUTSIDE RECORDS SUMMARY | 2024-10-21 11:10 | XMS_ITS | Data Portability ---
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 [facility] User Experience Architect [facility] Urologist Assessment Encounter Date Assessment [...] Details Appointments LAB Follow-Up 2024 07:30A M [facility] [place] Not available Not available Not available Wellness Visit 30 2024 09:15A Elmer Clarke, PABLO Not available Not available Not available Lab HbA1c (hemoglob in A1c), blood 2022 024 [facility], [address] [facility], [place], [address], 08/09/2023 10:57:33 Referral gastroent erologist referral - per dentist as significa nt erosion of enamel 2022 023 [facility], [address] [place], [address], 09/28/2023 12:31:18 Procedures None recorded. Surgeries None recorded. Imaging XR, ribs, unilatera l - eval for fractured ribs, s/p fall on stone wall on L side 2023 024 [facility] (Imaging), [address] , [place], [address], 11/02/2023 10:18:03 Medication Orders simvastat in 20 mg tablet 2023 024 [facility]acy #0818, [address] [place] [address], [address], 05/15/2024 08:59:23 metformin ER 500 mg tablet,ex tended release 24 hr 2023 024 [facility]/Pharmacy #0818, [address] [place] [address], [address], 05/15/2024 08:59:23 lisinopri l 10 mg tablet 2023 024 [facility]/Pharmacy #0818, [address] [place], [address], 05/15/2024 08:59:22 ibuprofen 800 mg tablet 2023 024 [facility], [address] [place], [address], 11/13/2023 10:26:24 lisinopri l 10 mg tablet 2023 024 [facility]/Pharmacy #0818, [address] [place], [address], 11/13/2023 10:26:18 ibuprofen 800 mg tablet 2023 024 [facility]/Pharmacy #0818, [address] [place], [address], 11/02/2023 08:27:07 sildenafi l 50 mg tablet 2022 023 [facility] [address] [place], [address], 11/13/2023 09:54:42 Patient TargetsNo targets recorded. Patient Instructions Encounter Date Encounter Id Patient Instructions Last Modified By Organization Details Last Modified Time 11/10/2022 [id number] high cholesterol lifestyle changes pkeough Not available 11/10/2022 09:18:51 Well Visit 50 to 65: Care Instructions pkeough Not available 11/10/2022 09:18:50 11/13/2023 [id number] high blood pressure: care instructions pkeough Not available 11/13/2023 10:26:16 learning about high blood pressure pkeough Not available 11/13/2023 10:26:16 05/15/2024 [id number] high blood pressure: care instructions pkeough Not available 05/15/2024 08:59:20 learning about high blood pressure pkeough Not available 05/15/2024 08:59:20 Reason for Referral User Experience Architect Referral for Erosion of teeth per dentist [...] furth er confi rmati on Not Available [address], [address], 11/02/2022 11:36:14 11/03/19 23 11/02/2022 HGB A1C estimated average glucose 137.0 mg/dL Not Available [address], [address], 11/02/2022 11:36:14 11/03/19 23 11/02/2022 BASIC METAB OLIC PANEL glucose 151 mg/dL 70-100 high Not Available [address], [address], 11/02/2022 15:34:56 11/03/19 23 11/02/2022 BASIC METAB OLIC PANEL BUN 17 mg/dL 7-18 Not Available [address], [address], 11/02/2022 15:34:56 11/03/19 23 11/02/2022 BASIC METAB OLIC PANEL creatinine 1.0 mg/dL 0.8-1. 3 Not Available [address], [address], 11/02/2022 15:34:56 11/03/19 23 11/02/2022 BASIC METAB OLIC PANEL B/C 17.0 ratio Not Available [address], [address], 11/02/2022 15:34:56 11/03/19 23 11/02/2022 BASIC METAB [...] 2020) as recom luis d by the Chiki ferreira . eGFR is based on age, serum creat inine , and sex. CKD-E PI does not calcu late eGFR by race, does not apply to child bakari (age <18 years ), and shoul d not be used in pregn babak. Not Available [address], [address], 11/02/2022 15:34:56 11/03/19 23 11/02/2022 BASIC METAB OLIC PANEL sodium 138 mmol/ L 136-14 5 Not Available [address], [address], 11/02/2022 15:34:56 11/03/19 23 11/02/2022 BASIC METAB OLIC PANEL potassium 4.3 mmol/ L 3.5-5. 1 Not Available [address], [address], 11/02/2022 15:34:56 11/03/19 23 11/02/2022 BASIC METAB OLIC PANEL chloride 102 mmol/ L 96-107 Not Available [address], [address], 11/02/2022 15:34:56 11/03/19 23 11/02/2022 BASIC METAB OLIC PANEL anion gap 9.2 5.0-15 .0 Not Available [address], [address], 11/02/2022 15:34:56 11/03/19 23 11/02/2022 BASIC METAB OLIC PANEL CO2 27 mmol/ L 21-32 Not Available [address], [address], 11/02/2022 15:34:56 11/03/19 23 11/02/2022 BASIC METAB OLIC PANEL calcium 8.9 mg/dL 8.5-10 .3 Not Available [address], [address], 11/02/2022 15:34:56 11/03/1911/02/2022 LIPID PANEL cholesterol 143 mg/dL <200 mg/dl Sudhir able 200-2 39 mg/dl Borde rline High >240 mg/dl High Not Available [address], [address], 11/02/2022 15:34:57 11/03/19 23 11/02/2022 LIPID PANEL triglyceride s 317 mg/dL high <150 mg/dL Viki l 150-1 99 mg/dL Borde rline High 200-4 99 mg/dL High >500 mg/dL Very High Not Available [address], [address], 11/02/2022 15:34:57 11/03/19 23 11/02/2022 LIPID PANEL direct HDL 38 mg/dL <40 mg/dl - Major Risk for CHD >60 mg/dl - Negat berta Risk for CHD Not Available [address], [address], 11/02/2022 15:34:57 11/03/1911/02/2022 DIREC T LDL direct LDL 46 mg/dL [...] r is not necmeaghan maisha. Not Available [address], [address], 11/02/2022 16:48:05 05/03/2005/03/2023 HGB A1C hemoglobin A1C [...] furth er confi rmati on Not Available [address], [address], 05/03/2023 12:05:19 05/03/2005/03/2023 HGB A1C estimated average glucose 157.1 mg/dL Not Available [address], [address], 05/03/2023 12:05:19 05/03/2005/03/2023 BASIC METAB OLIC PANEL glucose 173 mg/dL 70-100 high Not Available [address], [address], 05/03/2023 12:12:20 05/03/2005/03/2023 BASIC METAB OLIC PANEL BUN 17 mg/dL 7-18 Not Available [address], [address], 05/03/2023 12:12:20 05/03/2005/03/2023 BASIC METAB OLIC PANEL creatinine 1.0 mg/dL 0.8-1. 3 Not Available [address], [address], 05/03/2023 12:12:20 05/03/2005/03/2023 BASIC METAB OLIC PANEL B/C 17.0 ratio Not Available [address], [address], 05/03/2023 12:12:05/03/2005/03/2023 BASIC METAB OLIC PANEL GFR >=60ML /MIN [...] be used in pregn babak. Not Available [address], [address], 05/03/2023 12:12:20 05/03/2005/03/2023 BASIC METAB OLIC PANEL sodium 138 mmol/ L 136-14 5 Not Available [address], [address], 05/03/2023 12:12:20 05/03/2005/03/2023 BASIC METAB OLIC PANEL potassium 4.2 mmol/ L 3.5-5. 1 Not Available [address], [address], 05/03/2023 12:12:20 05/03/2005/03/2023 BASIC METAB OLIC PANEL chloride 102 mmol/ L 96-107 Not Available [address], [address], 05/03/2023 12:12:20 05/03/2005/03/2023 BASIC METAB OLIC PANEL anion gap 11.9 5.0-15 .0 Not Available [address], [address], 05/03/2023 12:12:20 05/03/2005/03/2023 BASIC METAB OLIC PANEL CO2 24 mmol/ L 21-32 Not Available [address], [address], 05/03/2023 12:12:20 05/03/20 23 05/03/2023 BASIC METAB OLIC PANEL calcium 9.0 mg/dL 8.5-10 .3 Not Available [address], [address], 05/03/2023 12:12:20 05/03/2005/03/2023 LIPID PANEL cholesterol 148 mg/dL <200 mg/dl Sudhir able 200-2 39 mg/dl Borde rline High >240 mg/dl High Not Available [address], [address], 05/03/2023 12:12:21 05/03/2005/03/2023 LIPID PANEL triglyceride s 323 mg/dL high <150 mg/dL Viki l 150-1 99 mg/dL Borde rline High 200-4 99 mg/dL High >500 mg/dL Very High Not Available [address], [address], 05/03/2023 12:12:21 05/03/20 23 05/03/2023 LIPID PANEL direct HDL 42 mg/dL <40 mg/dl - Major Risk for CHD >60 mg/dl - Negat berta Risk for CHD Not Available [address], [address], 05/03/2023 12:12:21 05/03/20 23 05/03/2023 DIREC T [...] r is not jose ferrera. Not Available [address], [address], 05/03/2023 14:38:05 05/03/20 23 05/03/2023 MICRO ALBUM IN/CR EATIN INE RATIO PANEL , URINE microalbumin 8.0 mg/L 1.3-20 .0 Not Available [address], [address], 05/03/2023 15:48:25 05/03/20 23 05/03/2023 MICRO ALBUM IN/CR EATIN INE RATIO PANEL , URINE creatinine urine 139.3 mg/dL 30.0-1 25.0 high Not Available [address], [address], 05/03/2023 15:48:25 05/03/20 23 05/03/2023 MICRO ALBUM IN/CR EATIN INE RATIO PANEL , URINE microalb/cre at ratio 5.7 mg/g_ creat 0.0-29 .0 Not Available [address], [address], 05/03/2023 15:48:25 08/09/19 24 08/09/2023 BASIC METAB OLIC PANEL glucose 168 mg/dL 70-100 high Not Available [address], [address], 08/09/2023 10:55:05 08/09/19 24 08/09/2023 BASIC METAB OLIC PANEL BUN 17 mg/dL 7-18 Not Available [address], [address], 08/09/2023 10:55:05 08/09/19 24 08/09/2023 BASIC METAB OLIC PANEL creatinine 1.1 mg/dL 0.8-1. 3 Not Available [address], [address], 08/09/2023 10:55:05 08/09/19 24 08/09/2023 BASIC METAB OLIC PANEL B/C 15.5 ratio Not Available [address], [address], 08/09/2023 10:55:05 08/09/19 24 08/09/2023 BASIC METAB [...] be used in pregn babak. Not Available [address], [address], 08/09/2023 10:55:05 08/09/19 24 08/09/2023 BASIC METAB OLIC PANEL sodium 139 mmol/ L 136-14 5 Not Available [address], [address], 08/09/2023 10:55:05 08/09/19 24 08/09/2023 BASIC METAB OLIC PANEL potassium 4.3 mmol/ L 3.5-5. 1 Not Available [address], [address], 08/09/2023 10:55:05 08/09/19 24 08/09/2023 BASIC METAB OLIC PANEL chloride 102 mmol/ L 96-107 Not Available [address], [address], 08/09/2023 10:55:05 08/09/19 24 08/09/2023 BASIC METAB OLIC PANEL anion gap 10.8 5.0-15 .0 Not Available [address], [address], 08/09/2023 10:55:05 08/09/19 24 08/09/2023 BASIC METAB OLIC PANEL CO2 26 mmol/ L 21-32 Not Available [address], [address], 08/09/2023 10:55:05 08/09/19 24 08/09/2023 BASIC METAB OLIC PANEL calcium 8.9 mg/dL 8.5-10 .3 Not Available [address], [address], 08/09/2023 10:55:05 08/09/19 24 08/09/2023 HGB A1C [...] furth er confi rmati on Not Available [address], [address], 08/09/2023 10:57:32 08/09/19 24 08/09/2023 HGB A1C estimated average glucose 157.1 mg/dL Not Available [address], [address], 08/09/2023 10:57:32 10/25/19 24 10/25/2023 HGB A1C [...] furth er confi rmati on Not Available [address], [address], 10/25/2023 11:15:39 10/25/19 24 10/25/2023 HGB A1C estimated average glucose 139.9 mg/dL Not Available [address], [address], 10/25/2023 11:15:39 10/25/19 24 10/25/2023 BASIC METAB OLIC PANEL glucose 149 mg/dL 70-100 high Not Available [address], [address], 10/25/2023 16:27:42 10/25/19 24 10/25/2023 BASIC METAB OLIC PANEL BUN 21 mg/dL 7-18 high Not Available [address], [address], 10/25/2023 16:27:42 10/25/19 24 10/25/2023 BASIC METAB OLIC PANEL creatinine 1.0 mg/dL 0.8-1. 3 Not Available [address], [address], 10/25/2023 16:27:42 10/25/19 24 10/25/2023 BASIC METAB OLIC PANEL B/C 21.0 ratio Not Available [address], [address], 10/25/2023 16:27:42 10/25/19 24 10/25/2023 BASIC METAB [...] be used in pregn babak. Not Available [address], [address], 10/25/2023 16:27:42 10/25/19 24 10/25/2023 BASIC METAB OLIC PANEL sodium 139 mmol/ L 136-14 5 Not Available [address], [address], 10/25/2023 16:27:42 10/25/19 24 10/25/2023 BASIC METAB OLIC PANEL potassium 4.4 mmol/ L 3.5-5. 1 Not Available [address], [address], 10/25/2023 16:27:42 10/25/19 24 10/25/2023 BASIC METAB OLIC PANEL chloride 101 mmol/ L 96-107 Not Available [address], [address], 10/25/2023 16:27:42 10/25/19 24 10/25/2023 BASIC METAB OLIC PANEL anion gap 12.9 5.0-15 .0 Not Available [address], [address], 10/25/2023 16:27:42 10/25/19 24 10/25/2023 BASIC METAB OLIC PANEL CO2 25 mmol/ L 21-32 Not Available [address], [address], 10/25/2023 16:27:42 10/25/19 24 10/25/2023 BASIC METAB OLIC PANEL calcium 9.1 mg/dL 8.5-10 .3 Not Available [address], [address], 10/25/2023 16:27:42 10/25/19 24 10/25/2023 LIPID PANEL cholesterol 113 mg/dL <200 mg/dl Sudhir able 200-2 39 mg/dl Borde rline High >240 mg/dl High Not Available [address], [address], 10/25/2023 16:27:43 10/25/19 24 10/25/2023 LIPID PANEL triglyceride s 205 mg/dL <150 mg/dL Viki l 150-1 99 mg/dL Borde rline High 200-4 99 mg/dL High >500 mg/dL Very High Not Available [address], [address], 10/25/2023 16:27:43 10/25/19 24 10/25/2023 LIPID PANEL direct HDL 42 mg/dL <40 mg/dl - Major Risk for CHD >60 mg/dl - Negat berta Risk for CHD Not Available [address], [address], 10/25/2023 16:27:43 10/25/19 24 10/25/2023 LDL - [...] 0-1 risk facto r is not terrimeaghan maisha. Not Available [address], [address], 10/25/2023 16:27:44 10/25/19 24 10/26/2023 IMMUN OGLOB ULIN A immunoglobul in A 125 mg/dL 47-310 normal Not Available [facility] [address], [address], 10/26/2023 16:02:40 10/25/19 24 10/26/2023 TISSU E TRANS GLUTA SANDRINE E AB, IGA tissue transglutami nase Ab, IgA <1.0 U/mL normal Value Inter preta tion ----- ----- ----- ---- <15.0 Antib tobias not detec audelia > or = 15.0 Antib tobias detec audelia Not Available [facility] [address], [address], 10/26/2023 16:02:41 01/02/20 24 01/02/2024 POC GLU POC glu 179 70 - 100 high Not Available [facility] [address] [place] [address], [address], 01/04/2024 09:10:15 05/08/20 24 05/08/2024 HGB A1C [...] furth er confi rmati on Not Available [address], [address], 05/08/2024 11:51:31 05/08/20 24 05/08/2024 HGB A1C estimated average glucose 151.3 mg/dL Not Available [address], [address], 05/08/2024 11:51:31 05/08/20 24 05/08/2024 MICRO ALBUM IN/CR EATIN INE RATIO PANEL , URINE microalbumin 21.0 mg/L 1.3-20 .0 high Not Available [address], [address], 05/08/2024 14:38:50 05/08/2005/08/2024 MICRO ALBUM IN/CR EATIN INE RATIO PANEL , URINE creatinine urine 121.7 mg/dL 30.0-1 25.0 Not Available [address], [address], 05/08/2024 14:38:50 05/08/20 24 05/08/2024 MICRO ALBUM IN/CR EATIN INE RATIO PANEL , URINE microalb/cre at ratio 17.3 mg/g_ creat 0.0-29 .0 Not Available [address], [address], 05/08/2024 14:38:50 05/08/20 24 05/09/2024 BASIC METAB OLIC PANEL glucose 182 mg/dL 70-100 high Not Available [address], [address], 05/09/2024 15:14:00 05/08/20 24 05/09/2024 BASIC METAB OLIC PANEL BUN 15 mg/dL 7-18 Not Available [address], [address], 05/09/2024 15:14:00 05/08/20 24 05/09/2024 BASIC METAB OLIC PANEL creatinine 1.1 mg/dL 0.8-1. 3 Not Available [address], [address], 05/09/2024 15:14:00 05/08/20 24 05/09/2024 BASIC METAB OLIC PANEL B/C 13.6 ratio Not Available [address], [address], 05/09/2024 15:14:00 05/08/20 24 05/09/2024 BASIC METAB OLIC PANEL GFR >=60ML /MIN [...] be used in pregn babak. Not Available [address], [address], 05/09/2024 15:14:00 05/08/20 24 05/09/2024 BASIC METAB OLIC PANEL sodium 140 mmol/ L 136-14 5 Not Available [address], [address], 05/09/2024 15:14:00 05/08/20 24 05/09/2024 BASIC METAB OLIC PANEL potassium 4.9 mmol/ L 3.5-5. 1 Not Available [address], [address], 05/09/2024 15:14:00 05/08/20 24 05/09/2024 BASIC METAB OLIC PANEL chloride 101 mmol/ L 96-107 Not Available [address], [address], 05/09/2024 15:14:00 05/08/20 24 05/09/2024 BASIC METAB OLIC PANEL anion gap 9.0 5.0-15 .0 Not Available [address], [address], 05/09/2024 15:14:00 05/08/20 24 05/09/2024 BASIC METAB OLIC PANEL CO2 30 mmol/ L 21-32 Not Available [address], [address], 05/09/2024 15:14:00 05/08/20 24 05/09/2024 BASIC METAB OLIC PANEL calcium 9.5 mg/dL 8.5-10 .3 Not Available [address], [address], 05/09/2024 15:14:00 11/02/19 24 11/02/2023 XR, ribs, unila teral CLINIC AL HISTOR Y: Left-s ided chest wall pain after a fall. Histor y of old fractu res. TECHNI QUE: At least 3 views of the left ribs are obtain ed. COMPAR SANDEE: 2020, 017 FINDIN GS: There are ecclesiastical worker ior and latera l fractu res of the left fourth , fifth, sixth ribs. There are fractu re along the latera l aspect of the left sevent h, eighth and ninth ribs. There are fractu re of along the ecclesiastical worker ior and beata latera l aspect s [...] ended. Vinh Thurston ana: Heladio Ibrahim ms [facility] (Imaging) [address], [place], [address], 11/13/2023 10:06:59 Result Notes None recorded. Procedures Surgical History Date Name Laterality Status Provider Name and Address Organization Details Recorded Time 01/02/2024 Katiana - EGD completed Mynor Saab MD [address] [place] [address], [id number], [facility] 01/02/2024 07:51:46 Imaging Results Imaging Date Name Status LastModified by Organiz ation Details LastModified Time 11/02/2023 XR, ribs, unilateral completed [facility] (Imaging) [address], [place], [address], 11/13/2023 10:06:59 Procedure Notes None recorded. Medical [...] You Wear A Helmet When Biking? Yes [email or web address] Information not available 06/24/2015 What Is Your Level Of Caffeine Consumption? None [email or web address] Information not available 05/13/2020 How Much Tobacco Do You Chew? None Information not available 12/31/2012 What Type Of Diet Are You Following? REGULAR [email or web address] Information not available 06/24/2015 Which Illicit Or Recreational Drugs Have You Used? No Denies IVDU Information not available 01/15/2018 Do You Or Have You Ever Used E-cigarettes Or Vape? 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 0 Information not available 12/31/2012 Are There Any Guns Present In Your Home? No [email or web address] Information not available 06/24/2015 Live Alone Or With Others? With Others [email or web address] Information not available 06/08/2011 Patient Has Health Care Proxy Signed And In Chart Yes [email or web address] Information not available 11/14/2022 Marital Status [email or web address] Informatio n not available 03/01/2012 Mosquito Repellent Used Routinely Yes Information not available 01/15/2018 What Was The Date Of Your Most Recent Tobacco Screening? 05/11/2022 05/11/22 CJ [email or web address] Information not available 05/11/2022 How Many Children Do You Have? 0 [email or web address] Information not available 06/08/2011 Seat Belts Used Routinely Yes [email or web address] Information not available 06/24/2015 Smoke Alarm In Home Yes [email or web address] Information not available 06/24/2015 Do You Or Have You Ever Used Smokeless Tobacco? Never Used Smokeless Tobacco 10/28/2019 TG Information not available 10/28/2019 How Much Tobacco Do You Smoke? No 05/11/22 CJ [email or web address] Information not available 05/11/2022 What Types Of Sporting Activities Do You Participate In? No Information not available 01/15/2018 General Stress Level Low [email or web address] Information not available 06/24/2015 Do You Use Sunscreen Routinely? Yes [email or web address] Information not available 06/24/2015 How Many Years Have You Smoked Tobacco? 0 [email or web address] Information not available 10/28/2019 Sex: Male Functional [...] SNOMED-CT Code Diagnosis ICD10 Code Diagnosis Note [id number] [facility] [place] [address] [place] [address] 08/28/2000 11:45:00 08/12/2008 02:02:29 [id number] [facility] [place] [address] [place] [address] 09/07/2006 09:25:16 09/07/2006 13:17:47 [id number] LAB - [address] [place] [address] 09/27/2006 09:47:41 09/27/2006 09:47:45 [id number] [facility], [address] [place] [address] 09/27/2006 10:01:46 09/27/2006 11:52:26 [id number] [facility], [address] [place] [address] 10/15/2006 14:29:42 10/15/2006 17:10:27 [id number] RENU [facility] [place] [address] [place] [address] 10/17/2006 08:03:38 10/17/2006 09:08:25 [id number] RENU [facility] [place] [address] [place] [address] 01/09/2007 12:05:24 01/09/2007 14:30:41 [id number] LAB - [facility] [place] [address] [place] [id number] 01/10/2007 07:28:27 01/10/2007 07:28:32 [id number] LAB - [facility] [place] [address] [place] [address] 01/11/2007 08:57:27 01/11/2007 08:57:35 [id number] [facility] [place] [address] [place] [address] 02/01/2007 08:12:35 02/01/2007 10:48:02 [id number] LAB - [facility] [place] [address] [place] [address] 06/11/2007 07:56:03 06/11/2007 07:56:12 [id number] [facility] [place] [address] [place] [address] 06/25/2007 09:01:34 08/12/2008 02:02:29 [id number] Podiatry, [facility] [place] [address] [place] [address] 07/09/2007 09:05:27 07/10/2007 09:23:03 [id number] LAB - [facility] [place] [address] [place] [address] 11/19/2007 10:32:30 11/19/2007 10:32:45 [id number] [facility] [place] [address] [place] [address] 05/12/2009 10:30:12 05/13/2009 08:35:11 [id number] [facility] [place] [address] [place] [address] 06/09/2009 14:41:02 06/10/2009 09:44:59 [id number] Endocrino logy, [facility] [place] [address] 06/23/2009 08:26:26 06/24/2009 09:26:23 [id number] Endocrino logy, [facility] [place] [address] 08/19/2009 09:27:35 08/19/2009 14:10:39 [id number] Endocrino logy, [facility] [place] [address] [place] [address] 11/18/2009 09:29:15 11/18/2009 10:41:01 [id number] , [facility] [address] [place] [address] [place] [address] 09/20/2010 12:01:55 09/20/2010 16:23:[id number] [place] [address] 06/21/2011 09:53:16 06/21/2011 10:13:02 [id number] , [address] [place] [address] 01/23/2012 08:10:14 01/23/2012 09:04:[id number] [place] [address] 03/01/2012 08:33:47 03/01/2012 09:08:14 [id number] Dorina Coker [address] [place], [place] [address] 12/31/2012 11:03:27 01/01/2013 07:35:53 [id number] Jessica Lockett i , [address] [place] [id number] 05/19/2013 09:39:48 05/19/2013 09:56:44 [id number] Ami Ledesma , [address] [place] [address] 1 08/28/2013 15:02:43 08/28/2013 15:25:22 [id number] Rosi Reyes , [address] [place] [address] 02/26/2014 09:23:19 02/26/2014 09:55:23 [id number] Montana Foreman III, MD , [address] [place] [id number] 01/05/2015 10:38:43 01/05/2015 10:57:32 [id number] Pilar Church MA , [address] [place] [address] 1 02/23/2015 09:02:42 02/23/2015 09:28:05 [id number] Aydee Clarke NP , [address] [place] [address] 02/25/2015 09:28:28 02/25/2015 10:08:25 [id number] [place], [facility] [address] [place] [address] [place] [address] 1 02/26/2015 09:13:35 02/26/2015 09:42:40 [id number] PABLO Sommers, [facility] [place] [address] [place] [address] [place] [address] 1 03/01/2015 09:16:53 03/01/2015 09:27:47 [id number] PABLO Sommers, [facility] [place] [address] [place], [place] [address] 06/24/2015 08:26:01 06/24/2015 09:06:08 [id number] Marcie Washington , [facility] [place] [address] [place] [address] 12/01/2015 09:44:27 12/01/2015 10:33:57 [id number] MD RENU Barreto, 15 [place] [address] 01/25/2016 09:18:19 01/25/2016 10:06:23 [id number] PABLO Sommers, [facility] [place] [address] [place] [address] 1 06/28/2016 09:35:15 06/29/2016 09:39:46 [id number] PABLO Anna, [address] [place] [address] 1 10/10/2016 08:00:49 10/12/2016 15:46:30 [id number] PABLO Sommers, [facility] [place] [address] [place] [address] 01/09/2017 07:57:33 01/10/2017 09:04:13 [id number] Anali SEARS, [facility] [place] [address] [place] [address] 02/09/2017 11:28:09 02/09/2017 12:27:37 [id number] Lety SEARS, [facility] [place] [address] [place] [address] 01/15/2018 10:28:34 01/15/2018 11:35:54 [id number] Joudy-Radha Dinnall, DPM Podiatry, [facility] [address] [facility] [place] [address] 01/30/2018 11:02:26 01/30/2018 14:26:05 [id number] Anali SEARS, [facility] [place] [address] [place] [address] 01/30/2018 15:50:18 01/30/2018 18:24:23 [id number] Joudy-Radha Dinnall, DPM Podiatry, [facility] [address] [place] [address] 02/12/2018 10:26:41 02/12/2018 11:12:01 [id number] Joudy-Radha Dinnall, DPM Podiatry, [facility] [address] [facility] [place] [address] 02/19/2018 08:51:40 02/19/2018 09:26:45 [id number] Joudy-Radha Dinnall, DPM Podiatry, [facility] [address] [facility] [place] [address] 03/05/2018 08:38:01 03/07/2018 14:19:36 [id number] Joudy-Radha Dinnall, DPM Podiatry, [address] [place] [address] 05/07/2018 09:13:31 05/07/2018 09:50:36 [id number] Joudy-Radha Dinnall, DPM Podiatry, [address] [place] [address] 05/21/2018 08:45:10 05/21/2018 16:20:21 [id number] Joudy-Radha Dinnall, DPM Podiatry, [address] [place] [address] 07/09/2018 09:09:03 07/10/2018 08:20:30 [id number] PABLO Sommers, [facility] [place] [address] [place], [place] [address] 09/06/2018 14:25:20 09/06/2018 15:02:23 [id number] PABLO Sommers, [facility] [place] [address] [place], [place] [address] 03/10/2019 15:51:01 03/10/2019 16:23:56 [id number] Nikole Shocarlos . MD SEARS, [facility] [place]ICE [address] [place] [address] [place] [address] 10/28/2019 08:30:56 10/28/2019 15:14:19 [id number] PABLO Sommers, [facility] [place] [address] [place] [address] [place] [address] 05/13/2020 10:57:05 05/14/2020 11:47:45 [id number] Aydee Clarke NP , [address] [place] [address] 1 05/27/2020 09:04:01 05/28/2020 15:26:35 [id number] Anali Yanez D.O. [address] [place] [address] 1 10/28/2020 07:51:21 11/19/2020 16:22:56 [id number] Dorina Zaman RN [address] [place] [address] 1 11/18/2020 08:16:03 11/19/2020 16:14:08 [id number] Yolette Ortiz RN [facility], [address] [place] [address] 1 11/26/2020 06:44:42 11/26/2020 12:47:20 [id number] Nikole Shocarlos . MD SEARS, [facility] [place], [address] [place] [address] 1 06/03/2021 14:03:53 06/03/2021 14:47:31 [id number] Jarocho Browne MD , [address] [place] [address] 1 06/13/2021 08:59:47 06/13/2021 09:45:05 [id number] Aydee Clarke NP , [address] [place] [address] 1 11/03/2021 08:30:54 11/03/2021 09:02:37 [id number] Anali Yanez D.O. [address] [place] [address] 1 05/11/2022 09:14:18 05/11/2022 09:53:17 [id number] Aydee Clarke NP , [facility] [place] OFFICE [address] [place] [address] [place] [address] 1 11/10/2022 08:27:54 11/10/2022 09:18:34 [id number] Nikole Pandya . , [facility] [place] OFFICE [address] [place] [address] [place] [address] 1 05/10/2023 09:15:35 05/14/2023 08:33:22 [id number] Yani Villegas RN Endoscopy , [facility] [place] [address] [place] [address] 1 01/02/2024 06:45:56 01/02/2024 10:51:16 [id number] Junie Parekh MD , [facility] [place] OFFICE [address] [place] [address] [place] [address] 1 11/02/2023 08:07:58 11/02/2023 10:18:03 [id number] Aydee Clarke NP , [facility] [place]ICE [address] [place] [address] [place] [address] 1 11/13/2023 09:46:52 11/13/2023 13:24:43 [id number] Aydee Clarke NP , [facility] [place]ICE [address] [place] [address] [place] [address] 1 05/15/2024 08:13:22 05/15/2024 10:18:36 Health Concerns Section Related Observation LastModified by Organization Detai ls LastModified Time None Recorded Concern Status LastModified by Organization Details LastModified Time None Recorded Advance Directives Directive None Recorded Payers Encounter Date Sequence Insurance Name Policy Number Policy Padron Covered Member ID Padron Member ID Guarantor Name 11/10/2022 1 [place] [employer] [place] 111 Timo Meng [id number] Timo Meng 05/10/2023 1 [place] 111 Timo Meng [id number] Timo Meng 11/02/2023 1 [place] 111 Timo Meng [id number] Timo Meng 11/13/2023 1 [place] 111 Timo Meng [id number] Timo Meng 05/15/2024 1 [facility] PRO[facility] 111 Timo Meng [id number] Timo Meng
--- OUTSIDE RECORDS SUMMARY | 2024-10-21 11:10 | XMS_ITS | Data Portability ---
Author Organization [facility], [facility] Address [address] [place] [address] Care Team Providers Care General Labor Name Role Phone AYDEE CLARKE Primary Care Provider EYE DR Accountant Manager [facility] Branch Administrator [facility] Urologist Assessment Encounter Date Assessment [...] Details Appointments LAB Follow-Up 2024 07:30A M [facility] Lab Not available Not available Not available Wellness Visit 30 2024 09:15A M Aydee Clarke PABLO Not available Not available Not available Lab HbA1c (hemoglob in A1c), blood 2022 024 [facility], [address] [facility], [place], [address], 08/09/2023 10:57:33 Referral gastroent erologist referral - per dentist as significa nt erosion of enamel 2022 023 [facility], [address] [place], [address], 09/28/2023 12:31:18 Procedures None recorded. Surgeries None recorded. Imaging XR, ribs, unilatera l - eval for fractured ribs, s/p fall on stone wall on L side 2023 024 [facility] ([facility]), [address] , [place], [address], 11/02/2023 10:18:03 Medication Orders simvastat in 20 mg tablet 2023 024 [facility] #[id number], [address] [place] [address], [address], 05/15/2024 08:59:23 metformin ER 500 mg tablet,ex tended release 24 hr 2023 024 [facility]0818, [address] [place], [address], 05/15/2024 08:59:23 lisinopri l 10 mg tablet 2023 024 [facility] #0818, [address] [place], [address], 05/15/2024 08:59:22 ibuprofen 800 mg tablet 2023 024 [facility] [address] [place], [address], 11/13/2023 10:26:24 lisinopri l 10 mg tablet 2023 024 [facility] #0818, [address] [place], [address], 11/13/2023 10:26:18 ibuprofen 800 mg tablet 2023 024 [facility] #0818, [address] [place], [address], 11/02/2023 08:27:07 sildenafi l 50 mg tablet 2022 023 [facility] [address] [place], [address], 11/13/2023 09:54:42 Patient TargetsNo targets recorded. Patient Instructions Encounter Date Encounter Id Patient Instructions Last Modified By Organization Details Last Modified Time 11/10/2022 [id number] high cholesterol lifestyle changes pkeough Not available 11/10/2022 09:18:51 Well Visit 50 to 65: Care Instructions pkeough Not available 11/10/2022 09:18:50 11/13/2023 [id number] high blood pressure: care instructions pkeough Not available 11/13/2023 10:26:16 learning about high blood pressure pkeough Not available 11/13/2023 10:26:16 05/15/2024 [id number] high blood pressure: care instructions pkeough Not available 05/15/2024 08:59:20 learning about high blood pressure pkeough Not available 05/15/2024 08:59:20 Reason for Referral Branch Administrator Referral for Erosion of teeth per dentist [...] furth er confi rmati on Not Available [address], [address], 11/02/2022 11:36:14 11/03/19 23 11/02/2022 HGB A1C estimated average glucose 137.0 mg/dL Not Available [address], [address], 11/02/2022 11:36:14 11/03/19 23 11/02/2022 BASIC METAB OLIC PANEL glucose 151 mg/dL 70-100 high Not Available [address], [address], 11/02/2022 15:34:56 11/03/19 23 11/02/2022 BASIC METAB OLIC PANEL BUN 17 mg/dL 7-18 Not Available [address], [address], 11/02/2022 15:34:56 11/03/19 23 11/02/2022 BASIC METAB OLIC PANEL creatinine 1.0 mg/dL 0.8-1. 3 Not Available [address], [address], 11/02/2022 15:34:56 11/03/19 23 11/02/2022 BASIC METAB OLIC PANEL B/C 17.0 ratio Not Available [address], [address], 11/02/2022 15:34:56 11/03/19 23 11/02/2022 BASIC METAB [...] Colla borat ion (CKD- EPI) Equat ion (Juanchoe r et. al 2020) as recom luis d by the Chiki ferreira . eGFR is based on age, serum creat inine , and sex. CKD-E PI does not calcu late eGFR by race, does not apply to child bakari (age <18 years ), and shoul d not be used in pregn babak. Not Available [address], [address], 11/02/2022 15:34:56 11/03/19 23 11/02/2022 BASIC METAB OLIC PANEL sodium 138 mmol/ L 136-14 5 Not Available [address], [address], 11/02/2022 15:34:56 11/03/19 23 11/02/2022 BASIC METAB OLIC PANEL potassium 4.3 mmol/ L 3.5-5. 1 Not Available [address], [address], 11/02/2022 15:34:56 11/03/19 23 11/02/2022 BASIC METAB OLIC PANEL chloride 102 mmol/ L 96-107 Not Available [address], [address], 11/02/2022 15:34:56 11/03/19 23 11/02/2022 BASIC METAB OLIC PANEL anion gap 9.2 5.0-15 .0 Not Available [address], [address], 11/02/2022 15:34:56 11/03/19 23 11/02/2022 BASIC METAB OLIC PANEL CO2 27 mmol/ L 21-32 Not Available [address], [address], 11/02/2022 15:34:56 11/03/19 23 11/02/2022 BASIC METAB OLIC PANEL calcium 8.9 mg/dL 8.5-10 .3 Not Available [address], [address], 11/02/2022 15:34:56 11/03/1911/02/2022 LIPID PANEL cholesterol 143 mg/dL <200 mg/dl Sudhir able 200-2 39 mg/dl Borde rline High >240 mg/dl High Not Available [address], [address], 11/02/2022 15:34:57 11/03/19 23 11/02/2022 LIPID PANEL triglyceride s 317 mg/dL high <150 mg/dL Viki l 150-1 99 mg/dL Borde rline High 200-4 99 mg/dL High >500 mg/dL Very High Not Available [address], [address], 11/02/2022 15:34:57 11/03/19 23 11/02/2022 LIPID PANEL direct HDL 38 mg/dL <40 mg/dl - Major Risk for CHD >60 mg/dl - Negat berta Risk for CHD Not Available [address], [address], 11/02/2022 15:34:57 11/03/1911/02/2022 DIREC T LDL direct [...] r is not necmeaghan maisha. Not Available [address], [address], 11/02/2022 16:48:05 05/03/20 23 05/03/2023 HGB A1C [...] furth er confi rmati on Not Available [address], [address], 05/03/2023 12:05:19 05/03/2005/03/2023 HGB A1C estimated average glucose 157.1 mg/dL Not Available [address], [address], 05/03/2023 12:05:19 05/03/2005/03/2023 BASIC METAB OLIC PANEL glucose 173 mg/dL 70-100 high Not Available [address], [address], 05/03/2023 12:12:20 05/03/2005/03/2023 BASIC METAB OLIC PANEL BUN 17 mg/dL 7-18 Not Available [address], [address], 05/03/2023 12:12:20 05/03/2005/03/2023 BASIC METAB OLIC PANEL creatinine 1.0 mg/dL 0.8-1. 3 Not Available [address], [address], 05/03/2023 12:12:20 05/03/2005/03/2023 BASIC METAB OLIC PANEL B/C 17.0 ratio Not Available [address], [address], 05/03/2023 12:12:20 05/03/2005/03/2023 BASIC METAB OLIC PANEL [...] be used in pregn babak. Not Available [address], [address], 05/03/2023 12:12:20 05/03/2005/03/2023 BASIC METAB OLIC PANEL sodium 138 mmol/ L 136-14 5 Not Available [address], [address], 05/03/2023 12:12:20 05/03/2005/03/2023 BASIC METAB OLIC PANEL potassium 4.2 mmol/ L 3.5-5. 1 Not Available [address], [address], 05/03/2023 12:12:20 05/03/2005/03/2023 BASIC METAB OLIC PANEL chloride 102 mmol/ L 96-107 Not Available [address], [address], 05/03/2023 12:12:20 05/03/2005/03/2023 BASIC METAB OLIC PANEL anion gap 11.9 5.0-15 .0 Not Available [address], [address], 05/03/2023 12:12:20 05/03/2005/03/2023 BASIC METAB OLIC PANEL CO2 24 mmol/ L 21-32 Not Available [address], [address], 05/03/2023 12:12:20 05/03/20 23 05/03/2023 BASIC METAB OLIC PANEL calcium 9.0 mg/dL 8.5-10 .3 Not Available [address], [address], 05/03/2023 12:12:20 05/03/2005/03/2023 LIPID PANEL cholesterol 148 mg/dL <200 mg/dl Sudhir able 200-2 39 mg/dl Borde rline High >240 mg/dl High Not Available [address], [address], 05/03/2023 12:12:21 05/03/20 23 05/03/2023 LIPID PANEL triglyceride s 323 mg/dL high <150 mg/dL Viki l 150-1 99 mg/dL Borde rline High 200-4 99 mg/dL High >500 mg/dL Very High Not Available [address], [address], 05/03/2023 12:12:21 05/03/20 23 05/03/2023 LIPID PANEL direct HDL 42 mg/dL <40 mg/dl - Major Risk for CHD >60 mg/dl - Negat berta Risk for CHD Not Available [address], [address], 05/03/2023 12:12:21 05/03/20 23 05/03/2023 DIREC T [...] r is not jose ferrera. Not Available [address], [address], 05/03/2023 14:38:05 05/03/20 23 05/03/2023 MICRO ALBUM IN/CR EATIN INE RATIO PANEL , URINE microalbumin 8.0 mg/L 1.3-20 .0 Not Available [address], [address], 05/03/2023 15:48:25 05/03/20 23 05/03/2023 MICRO ALBUM IN/CR EATIN INE RATIO PANEL , URINE creatinine urine 139.3 mg/dL 30.0-1 25.0 high Not Available [address], [address], 05/03/2023 15:48:25 05/03/20 23 05/03/2023 MICRO ALBUM IN/CR EATIN INE RATIO PANEL , URINE microalb/cre at ratio 5.7 mg/g_ creat 0.0-29 .0 Not Available [address], [address], 05/03/2023 15:48:25 08/09/19 24 08/09/2023 BASIC METAB OLIC PANEL glucose 168 mg/dL 70-100 high Not Available [address], [address], 08/09/2023 10:55:05 08/09/19 24 08/09/2023 BASIC METAB OLIC PANEL BUN 17 mg/dL 7-18 Not Available [address], [address], 08/09/2023 10:55:05 08/09/19 24 08/09/2023 BASIC METAB OLIC PANEL creatinine 1.1 mg/dL 0.8-1. 3 Not Available [address], [address], 08/09/2023 10:55:05 08/09/19 24 08/09/2023 BASIC METAB OLIC PANEL B/C 15.5 ratio Not Available [address], [address], 08/09/2023 10:55:05 08/09/19 24 08/09/2023 BASIC METAB [...] be used in pregn babak. Not Available [address], [address], 08/09/2023 10:55:05 08/09/19 24 08/09/2023 BASIC METAB OLIC PANEL sodium 139 mmol/ L 136-14 5 Not Available [address], [address], 08/09/2023 10:55:05 08/09/19 24 08/09/2023 BASIC METAB OLIC PANEL potassium 4.3 mmol/ L 3.5-5. 1 Not Available [address], [address], 08/09/2023 10:55:05 08/09/19 24 08/09/2023 BASIC METAB OLIC PANEL chloride 102 mmol/ L 96-107 Not Available [address], [address], 08/09/2023 10:55:05 08/09/19 24 08/09/2023 BASIC METAB OLIC PANEL anion gap 10.8 5.0-15 .0 Not Available [address], [address], 08/09/2023 10:55:05 08/09/19 24 08/09/2023 BASIC METAB OLIC PANEL CO2 26 mmol/ L 21-32 Not Available [address], [address], 08/09/2023 10:55:05 08/09/19 24 08/09/2023 BASIC METAB OLIC PANEL calcium 8.9 mg/dL 8.5-10 .3 Not Available [address], [address], 08/09/2023 10:55:05 08/09/19 24 08/09/2023 HGB A1C [...] furth er confi rmati on Not Available [address], [address], 08/09/2023 10:57:32 08/09/19 24 08/09/2023 HGB A1C estimated average glucose 157.1 mg/dL Not Available [address], [address], 08/09/2023 10:57:32 10/25/19 24 10/25/2023 HGB A1C [...] furth er confi rmati on Not Available [address], [address], 10/25/2023 11:15:39 10/25/19 24 10/25/2023 HGB A1C estimated average glucose 139.9 mg/dL Not Available [address], [address], 10/25/2023 11:15:39 10/25/19 24 10/25/2023 BASIC METAB OLIC PANEL glucose 149 mg/dL 70-100 high Not Available [address], [address], 10/25/2023 16:27:42 10/25/19 24 10/25/2023 BASIC METAB OLIC PANEL BUN 21 mg/dL 7-18 high Not Available [address], [address], 10/25/2023 16:27:42 10/25/19 24 10/25/2023 BASIC METAB OLIC PANEL creatinine 1.0 mg/dL 0.8-1. 3 Not Available [address], [address], 10/25/2023 16:27:42 10/25/19 24 10/25/2023 BASIC METAB OLIC PANEL B/C 21.0 ratio Not Available [address], [address], 10/25/2023 16:27:42 10/25/19 24 10/25/2023 BASIC METAB [...] be used in pregn babak. Not Available [address], [address], 10/25/2023 16:27:42 10/25/19 24 10/25/2023 BASIC METAB OLIC PANEL sodium 139 mmol/ L 136-14 5 Not Available [address], [address], 10/25/2023 16:27:42 10/25/19 24 10/25/2023 BASIC METAB OLIC PANEL potassium 4.4 mmol/ L 3.5-5. 1 Not Available [address], [address], 10/25/2023 16:27:42 10/25/19 24 10/25/2023 BASIC METAB OLIC PANEL chloride 101 mmol/ L 96-107 Not Available [address], [address], 10/25/2023 16:27:42 10/25/19 24 10/25/2023 BASIC METAB OLIC PANEL anion gap 12.9 5.0-15 .0 Not Available [address], [address], 10/25/2023 16:27:42 10/25/19 24 10/25/2023 BASIC METAB OLIC PANEL CO2 25 mmol/ L 21-32 Not Available [address], [address], 10/25/2023 16:27:42 10/25/19 24 10/25/2023 BASIC METAB OLIC PANEL calcium 9.1 mg/dL 8.5-10 .3 Not Available [address], [address], 10/25/2023 16:27:42 10/25/19 24 10/25/2023 LIPID PANEL cholesterol 113 mg/dL <200 mg/dl Sudhir able 200-2 39 mg/dl Borde rline High >240 mg/dl High Not Available [address], [address], 10/25/2023 16:27:43 10/25/19 24 10/25/2023 LIPID PANEL triglyceride s 205 mg/dL <150 mg/dL Viki l 150-1 99 mg/dL Borde rline High 200-4 99 mg/dL High >500 mg/dL Very High Not Available [address], [address], 10/25/2023 16:27:43 10/25/19 24 10/25/2023 LIPID PANEL direct HDL 42 mg/dL <40 mg/dl - Major Risk for CHD >60 mg/dl - Negat berta Risk for CHD Not Available [address], [address], 10/25/2023 16:27:43 10/25/19 24 10/25/2023 LDL - [...] r is not terrimeaghan maisha. Not Available [address], [address], 10/25/2023 16:27:44 10/25/19 24 10/26/2023 IMMUN OGLOB ULIN A immunoglobul in A 125 mg/dL 47-310 normal Not Available [facility] [address], [address], 10/26/2023 16:02:40 10/25/19 24 10/26/2023 TISSU E TRANS GLUTA SANDRINE E AB, IGA tissue transglutami nase Ab, IgA <1.0 U/mL normal Value Inter preta tion ----- ----- ----- ---- <15.0 Antib tobias not detec audelia > or = 15.0 Antib tobias detec audelia Not Available [facility] [address], [address], 10/26/2023 16:02:41 01/02/20 24 01/02/2024 POC GLU POC glu 179 70 - 100 high Not Available [facility] [address] [place] [address], [address], 01/04/2024 09:10:15 05/08/20 24 05/08/2024 HGB A1C [...] furth er confi rmati on Not Available [address], [address], 05/08/2024 11:51:31 05/08/20 24 05/08/2024 HGB A1C estimated average glucose 151.3 mg/dL Not Available [address], [address], 05/08/2024 11:51:31 05/08/20 24 05/08/2024 MICRO ALBUM IN/CR EATIN INE RATIO PANEL , URINE microalbumin 21.0 mg/L 1.3-20 .0 high Not Available [address], [address], 05/08/2024 14:38:50 05/08/2005/08/2024 MICRO ALBUM IN/CR EATIN INE RATIO PANEL , URINE creatinine urine 121.7 mg/dL 30.0-1 25.0 Not Available [address], [address], 05/08/2024 14:38:50 05/08/20 24 05/08/2024 MICRO ALBUM IN/CR EATIN INE RATIO PANEL , URINE microalb/cre at ratio 17.3 mg/g_ creat 0.0-29 .0 Not Available [address], [address], 05/08/2024 14:38:50 05/08/20 24 05/09/2024 BASIC METAB OLIC PANEL glucose 182 mg/dL 70-100 high Not Available [address], [address], 05/09/2024 15:14:00 05/08/20 24 05/09/2024 BASIC METAB OLIC PANEL BUN 15 mg/dL 7-18 Not Available [address], [address], 05/09/2024 15:14:00 05/08/20 24 05/09/2024 BASIC METAB OLIC PANEL creatinine 1.1 mg/dL 0.8-1. 3 Not Available [address], [address], 05/09/2024 15:14:00 05/08/20 24 05/09/2024 BASIC METAB OLIC PANEL B/C 13.6 ratio Not Available [address], [address], 05/09/2024 15:14:00 05/08/20 24 05/09/2024 BASIC METAB [...] be used in pregn babak. Not Available [address], [address], 05/09/2024 15:14:00 05/08/20 24 05/09/2024 BASIC METAB OLIC PANEL sodium 140 mmol/ L 136-14 5 Not Available [address], [address], 05/09/2024 15:14:00 05/08/20 24 05/09/2024 BASIC METAB OLIC PANEL potassium 4.9 mmol/ L 3.5-5. 1 Not Available [address], [address], 05/09/2024 15:14:00 05/08/20 24 05/09/2024 BASIC METAB OLIC PANEL chloride 101 mmol/ L 96-107 Not Available [address], [address], 05/09/2024 15:14:00 05/08/20 24 05/09/2024 BASIC METAB OLIC PANEL anion gap 9.0 5.0-15 .0 Not Available [address], [address], 05/09/2024 15:14:00 05/08/20 24 05/09/2024 BASIC METAB OLIC PANEL CO2 30 mmol/ L 21-32 Not Available [address], [address], 05/09/2024 15:14:00 05/08/20 24 05/09/2024 BASIC METAB OLIC PANEL calcium 9.5 mg/dL 8.5-10 .3 Not Available [address], [address], 05/09/2024 15:14:00 11/02/19 24 11/02/2023 XR, ribs, unila teral CLINIC AL HISTOR Y: Left-s ided chest wall pain after a fall. Histor y of old fractu res. TECHNI QUE: At least 3 views of the left ribs are obtain ed. COMPAR SANDEE: 2020, 017 FINDIN GS: There are environment artist ior and latera l fractu res of the left fourth , fifth, sixth ribs. There are fractu re along the latera l aspect of the left sevent h, eighth and ninth ribs. There are fractu re of along the environment artist ior and beata latera l aspect s [...] recomm ended. Vinh Thurston ana: Heladio valiente Patrice ms [facility] ([facility]) [address] , [place], [address], 11/13/2023 10:06:59 Result Notes None recorded. Problems Name Problem SNOMED Code Status Onset Date Resolution Date Notes Provider Name and Address Organization Details Recorded Time Benign essential hypertensi on 9955512 Active Not Available [facility] 2 09:32:40 Neuropathy due to diabetes mellitus 563825337 Active Not Available [facility] 2 09:32:40 Alcohol dependence 72430555 Active 2015 Not Available [facility] 2 09:32:40 Amputated toe 443065061 Active 2018 Not Available [facility] 2 09:32:40 Obesity 821360368 Active 2021 Aydee Clarke NP [address] [place] [address], [address] , [facility] 2 09:06:14 Basal cell carcinoma of skin 868778356 Active 2021 Bina Chopra NP [address] [place] [address], [address] , [facility] 2 08:37:19 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 141133342 Active 2021 Aydee Clarke NP [address] [place], [address] , [facility] 2 10:05:16 Mixed hyperlipid emia 660471550 Active 2006 Not Available [facility] 2 09:32:40 Injury of finger 78868842 Completed 200003/01/2012 Aydee Clarke NP [address] [place], [address] , [facility] 6 10:22:10 Testicular hypofuncti on 377913185 Completed 200603/01/2012 Aydee Clarke NP [address] [place] [address], [address] , [facility] 6 10:22:10 Essential hypertensi on 62168452 Completed 200003/01/2012 Aydee Clarke NP [address] [place] [address], [address] , [facility] 6 10:22:10 Diabetes mellitus 57724346 Completed 02/26/2014 Aydee Clarke NP [address] [place] [address], [address] , [facility] 6 10:22:10 Type 2 diabetes mellitus without complicati on 378029126 Active 2006 Not Available [facility] 2 09:32:40 Insect bite to trunk - nonvenomou s 487466082 Completed 03/01/2012 Aydee Clarke NP [address] [place] [address], [address] , [facility] 6 10:22:10 Benign essential hypertensi on 2177834 Completed 200603/01/2012 Aydee Clarke NP [address] [place] [address], [address] , [facility] 6 10:22:10 Atrial fibrillati on 55269393 Completed 03/01/2012 Aydee Clarke NP [address] [place] [address], [address] , [facility] 6 10:22:10 Morbid obesity 725366597 Completed 200603/01/2012 Aydee Clarke NP [address] [place] [address], [address] , [facility] 6 10:22:10 Open angle with borderline findings Active 2006 Not Available [facility] 2 09:32:40 Disorder of peripheral autonomic nervous system 956384002 Completed 03/01/2012 Aydee Clarke NP [address] [place] [address], [address] , [facility] 6 10:22:10 Disorder of nervous system due to type 2 diabetes mellitus 668346045 Completed 200603/01/2012 Aydee Clarke NP [address] [place] [address], [address] , [facility] 6 10:22:10 Malaise and fatigue 311893583 Completed 200603/01/2012 Adyee Clarke NP [address] [place] [address], [address] , [facility] 6 10:22:10 Problem Notes None recorded. Procedures Surgical History Date Name Laterality Status Provider Name and Address Organization Details Recorded Time 2 Obesity counseling completed Aydee Clarke NP [address] [place] [address], [address], [facility] 11/03/2021 09:05:56 2 prevention-card iovascular risk reduction counseling completed Aydee Clarke NP [address] [place] [address], [address], [facility] 11/03/2021 09:05:36 1 Katiana - Colonoscopy completed Mynor Saab MD [address] [place] [address], [address], [facility] 11/26/2020 07:46:53 1 prevention-card iovascular risk reduction counseling completed Esther Melendez [facility] 10/28/2020 07:54:46 1 prevention-vianey al alcohol misuse screening completed Esther Melendez [facility] 10/28/2020 07:54:46 0 prevention-card iovascular risk reduction counseling completed Esther Melendez [facility] 05/13/2020 10:57:32 0 prevention-vianey al alcohol misuse screening completed Esther Melendez [facility] 05/13/2020 10:57:32 5 Destruction of skin lesion completed Montana Foreman III, MD [address] [place] [address], [address], [facility] 01/05/2015 10:59:27 Imaging Results Imaging Date Name Status LastModified by Organiz ation Details LastModified Time 11/02/2023 XR, ribs, unilateral completed [facility] [address], [place], [address], 11/13/2023 10:06:59 Procedure Notes None recorded. Medical [...] /min 97 % 97 % 30 kg/m2 83749.7 7 g 116 mm[Hg] 84 mm[Hg] [facility] 3 08:51:13 Date Recorded Body height Body mass index (BMI) Body weight Heart rate Systolic blood pressure Diastolic blood pressure Provider Name and Address Organization Details Last Updated DateTime 3 168.28 cm 30.4 kg/m2 65911.5 5 g 81 /min 114 mm[Hg] 73 mm[Hg] [facility] 3 09:28:45 Date Recorded Body height Body mass index (BMI) Body weight Heart rate Oxygen saturation Oxygen saturation in Arterial blood by Pulse oximetry Systolic blood pressure Diastolic blood pressure Provider Name and Address Organization Details Last Updated DateTime 4 168.28 cm 31.8 kg/m2 15716.6 9 g 105 /min 99 % 99 % 150 mm[Hg] 82 mm[Hg] Samantha Galindo CMA [facility] 4 08:15:04 Date Recorded Body height Body mass index (BMI) Body weight Oxygen saturation Oxygen saturation in Arterial blood by Pulse oximetry Heart rate Systolic blood pressure Diastolic blood pressure Systolic blood pressure Diastolic blood pressure Provider Name and Address Organization Details Last Updated DateTime 4 168.28 cm 31.1 kg/m2 47787.9 2 g 100 % 100 % 88 /min 125 mm[Hg] 84 mm[Hg] 133 mm[Hg] 74 mm[Hg] [facility] 4 11:24:46 Date Recorded Body height Body mass index (BMI) Body weight Oxygen saturation Oxygen saturation in Arterial blood by Pulse oximetry Heart rate Systolic blood pressure Diastolic blood pressure Provider Name and Address Organization Details Last Updated DateTime 4 168.28 cm 30.1 kg/m2 09435.3 7 g 97 % 97 % 77 /min 104 mm[Hg] 62 mm[Hg] Adrián Shahkelomar [facility] 4 08:26:48 Social History Question Answer Notes LastModified by Organizat ion Details LastModified Time Tobacco Smoking Status Never Smoker checked 05-15-24 Adrián Wor[address]ton [facility] 05/15/2024 08:27:56 What Is Your Level Of Alcohol Consumption? Moderate 5 Days A Week- 4 Shot Glasses A Day Vodka -[email or web address]. [email or web address] Information not available 05/15/2024 Do You Wear A Helmet When Biking? Yes [email or web address] Information not available 06/24/2015 What Is Your Level Of Caffeine Consumption? None [email or web address] Information not available 05/13/2020 How Much Tobacco Do You Chew? None Information not available 12/31/2012 What Type Of Diet Are You Following? REGULAR [email or web address] Information not available 06/24/2015 Which Illicit Or Recreational Drugs Have You Used? No Denies IVDU Information not available 01/15/2018 Do You Or Have You Ever Used E-cigarettes Or Vape? 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 0 Information not available 12/31/2012 Are There Any Guns Present In Your Home? No [email or web address] Information not available 06/24/2015 Live Alone Or With Others? With Others [email or web address] Information not available 06/08/2011 Patient Has Health Care Proxy Signed And In Chart Yes [email or web address] Information not available 11/14/2022 Marital Status [email or web address] Informatio n not available 03/01/2012 Mosquito Repellent Used Routinely Yes Information not available 01/15/2018 What Was The Date Of Your Most Recent Tobacco Screening? 05/11/2022 05/11/22 CJ [email or web address] Information not available 05/11/2022 How Many Children Do You Have? 0 [email or web address] Information not available 06/08/2011 Seat Belts Used Routinely Yes [email or web address] Information not available 06/24/2015 Smoke Alarm In Home Yes Information not available 06/24/2015 Do You Or Have You Ever Used Smokeless Tobacco? Never Used Smokeless Tobacco 10/28/2019 TG [email or web address] Information not available 10/28/2019 How Much Tobacco Do You Smoke? No 05/11/22 CJ [email or web address] Information not available 05/11/2022 What Types Of Sporting Activities Do You Participate In? No Information not available 01/15/2018 General Stress Level Low [email or web address] Information not available 06/24/2015 Do You Use Sunscreen Routinely? Yes [email or web address] Information not available 06/24/2015 How Many Years Have You Smoked Tobacco? 0 [email or web address] Information not available 10/28/2019 Sex: Male Functional Status None recorded. Mental Status None recorded. Family History Relationship Description Onset Age of this Age Resolved Age Notes LastModified by Organization Details LastModified Time Father Alcoholism pkeough Not availabl e 12/01/2015 10:23:38 Brother Asthma 32 acute asthma attack pkeough Not available 12/01/2015 10:23:38 Brother Opioid dependence 32 [place] in [place] @ [facility] pkeough Not available 12/01/2015 10:23:38 Notes:Father-ETOH [...] Recorded Time Tdap 007 completed Not Available [facility] 06/07/2011 05:21:29 Tdap 007 completed Not Available [facility] 06/07/2011 05:21:29 pneumococcal polysaccharide PPV23 009 completed Not Available [facility] 08/09/2019 02:38:00 Td (adult), 2 Lf tetanus toxoid, preservative free, adsorbed 018 completed Not Available [facility] 08/09/2019 02:22:36 Influenza, split virus, quadrivalent, PF 022 cancelled patient objection Anali Yanez D.O. [address] [place] [address], [phone], [facility] 05/11/2022 11:18:26 Influenza, split virus, quadrivalent, PF 023 cancelled patient objection Nikole Pandya. [address] [place], [address], [facility] 05/13/2023 15:47:02 COVID-19, mRNA, LNP-S, PF, 30 mcg/0.3 mL dose 021 completed Esther Melendez CMA null, [facility] 06/03/2021 14:14:02 COVID-19, mRNA, LNP-S, PF, 30 mcg/0.3 mL dose 021 completed Esther Melendez CMA null, [facility] 06/03/2021 14:14:12 COVID-19, mRNA, LNP-S, PF, 100 mcg/0.5mL dose or 50 mcg/0.25mL dose 022 completed JUAN Alvarez [facility] 08/22/2021 14:21:46 Past Encounters Encounter ID Performer Location Encounter Start Date Encounter Closed Date Diagnosis/Indication Diagnosis SNOMED-CT Code Diagnosis ICD10 Code Diagnosis Note [id number] [facility], OFFICE [address] [place] [address] 08/28/2000 11:45:00 08/12/2008 02:02:29 [id number] [facility], OFFICE [address] [place] [id number] 09/07/2006 09:25:16 09/07/2006 13:17:47 [id number] [facility] - [address] [place] [address] 09/27/2006 09:47:41 09/27/2006 09:47:45 [id number] [facility], [address] [place] [address] 09/27/2006 10:01:46 09/27/2006 11:52:26 [id number] [facility], [address] [place] [address] 10/15/2006 14:29:42 10/15/2006 17:10:27 [id number] [place] [place] [address] [place] [id number] 10/17/2006 08:03:38 10/17/2006 09:08:25 [id number] [facility] [address] [place] [address] 01/09/2007 12:05:24 01/09/2007 14:30:41 [id number] [facility] - [address] [place] [address] 01/10/2007 07:28:27 01/10/2007 07:28:32 [id number] [facility] - [address] [place] [address] 01/11/2007 08:57:27 01/11/2007 08:57:35 [id number] [facility] [place] [address] [place] [id number] 02/01/2007 08:12:35 02/01/2007 10:48:02 [id number] [facility] - [address] [place] [address] 06/11/2007 07:56:03 06/11/2007 07:56:12 [id number] [facility], OFFICE [address] [place] [address] 06/25/2007 09:01:34 08/12/2008 02:02:29 [id number] Podiatry, [facility] [place] [address] 07/09/2007 09:05:27 07/10/2007 09:23:03 [id number] LAB - [facility] [place] [address] 11/19/2007 10:32:30 11/19/2007 10:32:45 [id number] [facility], OFFICE [address] [place] [address] 05/12/2009 10:30:12 05/13/2009 08:35:11 [id number] [facility], OFFICE [address] [place] [address] 06/09/2009 14:41:02 06/10/2009 09:44:59 [id number] Endocrino logy, [address] [place] [address] 06/23/2009 08:26:26 06/24/2009 09:26:23 [id number] Endocrino logy, [facility] [place] [address] 08/19/2009 09:27:35 08/19/2009 14:10:39 [id number] Endocrino logy, [facility] [place] [address] 11/18/2009 09:29:15 11/18/2009 10:41:01 [id number] [facility] [place] [address] [place] [address] [place] [address] 09/20/2010 12:01:55 09/20/2010 16:23:51 [id number] [facility], OFFICE [address] [place] [address] [place] [address] 06/21/2011 09:53:16 06/21/2011 10:13:02 [id number] [facility], OFFICE [address] [place] [address] [place] [address] 01/23/2012 08:10:14 01/23/2012 09:04:59 [id number] [facility], [facility] [address] [place] [address] 03/01/2012 08:33:47 03/01/2012 09:08:14 [id number] Dorina SEARS [facility], OFFICE [address] [place] [address] 12/31/2012 11:03:27 01/01/2013 07:35:53 [id number] Jessica Levy moore [facility], OFFICE [address] [place] [address] 05/19/2013 09:39:48 05/19/2013 09:56:44 Nonvenomous insect bite of multiple sites [id number] Amiray Ledesma [facility], OFFICE [address] [place] [address] 08/28/2013 15:02:43 08/28/2013 15:25:22 Benign essential hypertension 8494583 continue to work on diet ,exercisea nd lowering salt intake as discussed Mixed hyperlipidemia 790175033 continue to work on diet and exercise as discussed Adult heal th examination [id number] see Risk Assessment and Lifestyle Change Counseling section above Counseling [id number] Type 2 nora betes mellitus without complication 697914169 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 163422896 Disorder o f nervous system due to type 2 diabetes mellitus 080492957 [id number] Rosi Eric [facility], OFFICE [address] [place] [address] 02/26/2014 09:23:19 02/26/2014 09:55:23 Benign essential hypertension 0698591 continue to work on diet ,exercisea nd lowering salt intake as discussed Mixed hyperlipidemia 284782543 continue to work on diet and exercise as discussed Disorder o f nervous system due to type 2 diabetes mellitus 586073779 Foot neuropathy Neoplasm of skin 186635713 [id number] Montana Foreman III, MD [facility], OFFICE [address] [place] [address] 01/05/2015 10:38:43 01/05/2015 10:57:32 Benign essential hypertension 9358826 continue to work on diet, exercise, and lowering salt intake as discussed Mixed hyperlipidemia 153878429 continue to work on diet and exercise as discussed Cholestero l is at goal Type 2 nora betes mellitus without complication 031984797 Actinic keratosis 517800168 Right shoulder x 2 [id number] Pilar Church MA [facility], OFFICE [address] [place] [address] 02/23/2015 09:02:42 02/23/2015 09:28:05 Paronychia of toe 026718009 Diabetes mellitus 28489344 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 979018887 [id number] PABLO Sommers, [facility], OFFICE [address] [place] [address] 02/25/2015 09:28:28 02/25/2015 10:08:25 Paronychia of toe 036911537 Diabetes mellitus 52751471 Cellulitis of toe 90295500 [id number] JUAN Lewis, [facility], OFFICE [address] [place] [address] 02/26/2015 09:13:35 02/26/2015 09:42:40 Cellulitis of toe 36282953 Paronychia of toe 688875303 Diabetes mellitus 73462077 [id number] PABLO Sommers, [facility], OFFICE [address] [place] [address] 03/01/2015 09:16:53 03/01/2015 09:27:47 Cellulitis of toe 44463140 resolving will finish remaining 3 days of Bactrim DS bid. Again reviewed sxs of infection and will rto if they reoccur. [id number] PABLO Sommers, [facility], OFFICE [address] [place] [address] 06/24/2015 08:26:01 06/24/2015 09:06:08 Type 2 diabetes mellitus without complication 451952103 E11.9 A1C not at goal of <7.0 Up significan tly from December will increase metformin ER to 1000 mg bid will decrease ETOH, sugar drinks repeat labs 3 months- OV Mixed hyperlipidemia 267 899969 E78.2 Trigs are not at goal Will c/w omega fish oil 4000 mg qd will decrease ETOH and sugary drinks Continue to work on diet and exercise as discussed repeat labs 3 months and f/u OV Benign ess ential hypertension 6362059 I10 Blood pressure at goal . continue to work on diet, exercise, and lowering salt intake as discussed Adult [facility] th examination 604910027 Z00.00 see Risk Assessment and Lifestyle Change Counseling section above HM: Labs UTD Declines flu shot Counseling 821347814 Z71 .9 Alcohol dependence 52825 003 F10.20 discussed reducing ETOH intake discussed impact on blood sugar and triglyceri vi Shoulder pain 58776637 M 25.512 ? impingemen t will try 3-5 days of NSAIDs, alternate heat and ice will call if he reconsider PT Neuropathy due to diabetes mellitus 988779593 E11.40 stable discussed importance of checking feet regularly. [id number] Marcie Washington , [facility], OFFICE [address] [place] [address] 12/01/2015 09:44:27 12/01/2015 10:33:57 Type 2 diabetes mellitus without complication 862110103 E11.9 A1C at goal of <7.0 at 5.0 will c/w increase metformin 1000 mg bid c/w glyburide 2.5 mg qd discussed working on diet, ETOH reduction will repeat in 3 months to check for stability OV 6 months Mixed hyperlipidemia 267 244633 E78.2 Trigs much improved down from 699 to 158! great job Will c/w omega fish oil 4000 mg qd will decrease ETOH and sugary drinks Continue to work on diet and exercise as discussed repeat labs 3 months and f/u OV 6 months Benign ess ential hypertension 3762891 I10 Blood pressure at goal . 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 Adjustment disorder 1722 6007 F43.23 dealing with loss of 32 brother (OD) as well taking care of Mom [id number] Jarocho Browne MD , [facility], OFFICE [address] [place] [address] 01/25/2016 09:18:19 01/25/2016 10:06:23 Infection of toe 016859362 L08.9 in diabetic with neuropathy i informed him that this was a serious infection for him and that we must be observant augmentin for 12 days.he will rto for non response after 48 hrs, or for progressio n or onset fever Neuropathy due to diabetes mellitus 876736235 E11.40 [id number] Aydee Clarke NP , [facility], OFFICE [address] [place] [address] 06/28/2016 09:35:15 06/29/2016 09:39:46 Benign essential hypertension 4882008 I10 BP at goalc/w meds Neuropathy due to diabetes mellitus 141752886 E11.40 abn but stable discussed importance of checking feet regularly. Mixed hyperlipidemia 267 581147 E78.2 Trigs up from 158 to 388will c/w fish oildiscuss ed importance of ETOH reduction Type 2 nora betes mellitus without complication 127406998 E11.9 A1C very good at 5.7will get meter d/t ? of low blood sugarsIf getting lows discussed potentiall y reducing glyburideR F on med today Adult heal th examination 668240823 Z00.00 see Risk Assessment and Lifestyle Change Counseling section aboveHM: declines flu shot Counseling 683661471 Z71 .9 Alcohol dependence 87261 003 F10.20 discussed reducing ETOH intake- has not reduced discussed impact on blood sugar and triglyceri vi lhoping new job (no longer at [employer]) will help reduce [id number] Bina Chopra NP , [facility], OFFICE [address] [place] [address] 10/10/2016 08:00:49 10/12/2016 15:46:30 Injury of ribs 685694849 S29.9XXA Alcohol dependence 16154 003 F10.20 Type 2 nora betes mellitus without complication 938085107 E11.9 [id number] Aydee Clarke NP , [facility], OFFICE [address] [place] [address] 01/09/2017 07:57:33 01/10/2017 09:04:13 Benign essential hypertension 6582631 I10 Blood pressure at goal of <140/90c/w lisinopril BMP utd wnl Mixed hyperlipidemia 267 410288 E78.2 LDL at goal of <100c/w simvastati ncontinue to work on diet and exercise as discussed Type 2 nora betes mellitus without complication 657154834 E11.9 A1C 5.0 with Goal <6.5doing well with more activity d/t jobno med changesmay consider reducing if c/w low A1Crto 6 months for PHA Neuropathy due to diabetes mellitus 462210643 E11.40 abn but stable discussed importance of checking feet regularly. Alcohol dependence 87307 003 F10.20 has reduced amount of ETOHonly on weekends and occasional during week Obesity 235568036 E66.9 BMI 30has lost weight- 8 lbs since Junec/ w regular activity [id number] Anali Yanez D.O. 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 to d/c glyburide and CUT DOWN metformin to 1000 mg once dailywill recheck HbA1c in Jun [id number] Lety Matthew , [facility], [address] [place] [address] 01/15/2018 10:28:34 01/15/2018 11:35:54 Type 2 diabetes mellitus without complication 882744929 E11.9 A1C 5.9 with Goal <6.5doing well with more activity d/t jobno med changesmay consider reducing if c/w low A1Crto 6 months for PHA Alcohol dependence 06122 003 F10.20 stable with slight decrease per pt3-4 drinks 5 x week Benign ess ential hypertension 8396823 I10 Blood pressure at goal of <140/90c/w lisinopril BMP utd wnl Neuropathy due to diabetes mellitus 447390090 E11.40 abn but stable discussed importance of checking feet regularly. Mixed hyperlipidemia 267 424265 E78.2 LDL at goal of <100c/w simvastati ncontinue to work on diet and exercise as discussed Active or passive immunization 230710966 Z23 Diabetic foot ulcer 3710 12904 E11.40 R foot 2nd toe with cellulitis will get xrayget bactrim DS bid x [address] Wang for wound care. [id number] Mitesh Cheng DPM Podiatry, [address] [place] [address] 01/30/2018 11:02:26 01/30/2018 14:26:05 Acute osteomyelitis of phalanx of toe 595849516 M86.179 Reviewed right foot xray notable for [...] post op day 0. Pain in toe 989683137 M7 9.674 Ulcer of toe 900746016 L 97.188 [id number] Anali Yanez D.O. , [facility], OFFICE [address] [place] [address] 01/30/2018 15:50:18 01/30/2018 18:24:23 Pre-surgery evaluation 632295527 Z01.818 ekg wnlThe patient is a low risk for perioperat berta cardiovasc ular complicati ons, and may proceed with surgery. Acute oste omyelitis of phalanx of toe 944348888 M86.179 R 2nd toe Benign ess ential hypertension 9971550 I10 Blood pressure at goal of <140/90c/w lisinopril BMP utd wnl Alcohol dependence 60994 003 F10.20 stable with slight decrease per pt3-4 drinks 5 x week [id number] Mitesh Cheng DPM Podiatry, [address] [address] 02/12/2018 10:26:41 02/12/2018 11:12:01 Acute osteomyelitis of phalanx of toe 392285932 M86.179 Reviewed right foot xray notable for erosions of distal aspect of distal phalanx s/p partial amputation of toe. Rx for augmentin sent to pharmacy for 10 day course. Dressing changed. Pain in toe 249786344 M7 9.674 will remove sutures in 1 week. [id number] Mitesh Cheng DPM Podiatry, [address] [address] 02/19/2018 08:51:40 02/19/2018 09:26:45 Acute osteomyelitis of phalanx of toe 972112554 M86.179 Reviewed right foot xray notable for erosions of distal aspect of distal phalanx s/p partial amputation of toe. Pain in toe 962693545 M7 9.674 Sutures removed today. Scab overlying incision removed and site bleeding area identified . Area was cleansed then new dressing was applied to the toe. Pt instructed to take abx to completion . Also to keep toe covered with gauze after daily dressing changes until area is healed up. RTC 2 weeks to re-eval. Ok to return to work tomorrow. [id number] Mitesh Cheng DPM Podiatry, [address] [address] 03/05/2018 08:38:01 03/07/2018 14:19:36 Acute osteomyelitis of phalanx of toe 589572683 M86.179 Reviewed right foot xray notable for erosions of distal aspect of distal phalanx s/p partial amputation of toe. Resolved, patient with clean margins. Pain in toe 031976796 M7 9.674 Right 2nd toe wound all healed up now. Pt ok to get toe wet. Counceled on need for diabetic shoes with custom insoles, as he will need wide width and extra depth shoe to accomodate toe deformitie s. RTC 3 months to re-eval. [id number] Mitesh Cheng DPM Podiatry, [address] [address] 05/07/2018 09:13:31 05/07/2018 09:50:36 Pain in toe 246482719 M79.674 Counseled on need for diabetic shoes with custom insoles, as he will need wide width and extra depth shoe to accomodate toe deformitie s. Orthotics agreement form was completed and signed today. Pt given a copy. We will check with her insurance about coverage. Patient is aware of cost. Cellulitis of toe 875700 04 L03.031 Ulcer of toe 958912017 L 97.509 Verbal consent was obtained. Right [...] in counseling and coordinati on of care. [id number] Mitesh Cheng DPM Podiatry, [address] [address] 05/21/2018 08:45:10 05/21/2018 16:20:21 Pain in toe 925977924 M79.674 Counseled on need for diabetic shoes [...] The scanned images were then sent to [facility] for quita rodriguez Specificat ions: full length, 45 jeff, flexible, cute wide, toe filler for right 2nd toe amputation .I spent 15 mins face to face with patient, more 50% spent in counseling and coordinati on of care. Cellulitis of toe 162428 04 L03.031 resolved Ulcer of toe 559627000 L 97.509 Verbal consent was obtained. Right [...] in counseling and coordinati on of care. [id number] Mitesh Cheng DPM Podiatry, [address] [address] 07/09/2018 09:09:03 07/10/2018 08:20:30 Pain in toe 038815058 M79.674 Pt was informed that breaking into fulltime wear of custom made functional foot orthotic devices should occur over a period of 10 to 14 days. On the day of orange picker the orthotic devices, wear them for [...] coordinati on of care. Cellulitis of toe 864896 04 L03.031 resolved Ulcer of toe 014464300 L 97.509 Verbal consent was obtained. Right 4th toe prepped and sterile instrument ation used to unroof blister draining serous drainage. Wound was dressed wtih betadine and dsd. Pt was given instructio ns to dress it accordingl y each day. Rx for abx sent to pharmacy. RTC 2 weeks. Not to get foot wet. [id number] Aydee Clarke NP , [facility], OFFICE [address] [place] [address] 09/06/2018 14:25:20 09/06/2018 15:02:23 Adult health examination 032298312 Z00.00 see Risk Assessment and Lifestyle Change Counseling section aboveHM: labs utdcolonos copy due Counseling 648496226 Z71 .9 Depression screening 171 524641 Z13.89 1 out of 27depressi on screening tool administer ed, entered into emr, scored and discussed, time greater than 7.5 minutes Mixed hyperlipidemia 267 764567 E78.2 LDL at goal of <100c/w simvastati ncontinue to work on diet and exercise as discussed Benign ess ential hypertension 6161117 I10 BP at goal c/w lisinopril continue to work on diet, exercise, and lowering salt intake as discussed Type 2 nora betes mellitus without complication 713475551 E11.9 A1C 5.7 with Goal <6.5still high fasting bs at 157advised to reduce ETOH particular ly shots doing well with more activity d/t jobno med changesmay consider reducing if c/w low A1Crto 6 months for PHA Alcohol dependence 14940 003 F10.20 3-4 everyday after workis doing shotsadvis ed to reduce- pt agrees Neuropathy due to diabetes mellitus 461316809 E11.40 abn but stable discussed importance of checking feet regularly. Screening for malignant neoplasm of colon 091555645 Z12.11 Referral for a DIRECT booked colonoscop y. This patient is a healthy ASA Class 1 or 2 patient (only mild systemic disease), or a STABLE, well controlled insulin dependent diabetic. They do not have serious cardiac disease ie [place]/angiopl asty within 1 year, symptomati c CHF; renal failure with CKD 4 or 5; take Coumadin, Plavix, Aggrenox, etc. Amputated toe 331115909 Z89.429 R 2nd toecheck feet daily [id number] Aydee Clarke NP , [facility], OFFICE [address] [place] [address] 03/10/2019 15:51:01 03/10/2019 16:23:56 Mixed hyperlipidemia 781489108 E78.2 LDL at goal of <100c/w simvastati ncontinue to work on diet and exercise as discussed Screening for malignant neoplasm of colon 153234248 Z12.11 Referral for a [employer] booked colonoscop y. This patient is a healthy ASA Class 1 or 2 patient (only mild systemic disease), or a STABLE, well controlled insulin dependent diabetic. They do not have serious cardiac disease ie [place]/angiopl asty within 1 year, symptomati c CHF; renal failure with CKD 4 or 5; take Coumadin, Plavix, Aggrenox, etc. Neuropathy due to diabetes mellitus 812016753 E11.40 abn but stable discussed importance of checking feet regularly. no open toe shoesneed to protect feet Amputated toe 761264890 Z89.429 R 2nd toecheck feet daily Benign ess ential hypertension 7596790 I10 BP at goal c/w lisinopril continue to work on diet, exercise, and lowering salt intake as discussed Disorder o f nervous system due to type 2 diabetes mellitus 398813536 E11.49 DM is gwxdywp3s 5.8 which is great- at goaldiscus sed importance of foot carealread y had 1 amputation injury to L great toe- no open toe shoes Obesity 680018263 E66.9 BMI 30.5c/w low fat, low carb diet c/w regular activity Injury of toe 227814183 S99.922A likely paronychia of L great toeInterdi git is red, swollen with some warmthno painhx of osteomyeli tis with amputation xray todaystart keflex 500 mg tid x 7 days. Cramp in l ower limb associated with sleep 1794916423 74869 G47.62 advised increasing potassium with banana, sweet potatoeske ep hydrated with electrolyt estry diet tonic prior to bed [id number] Nikole Pandya . MD SEARS, [facility], [address] [address] [place] [address] 10/28/2019 08:30:56 10/28/2019 15:14:19 Low back pain 889254473 M54.5 Low back strain, no alarming symptoms. Will treat with ice, muscle relaxers and NSAIDs. Do not take ibuprofen with meloxicam. Call us with any new neurologic symptoms. 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 [id number] PABLO Sommers, [facility], OFFICE [address] [place] [address] 05/13/2020 10:57:05 05/14/2020 11:47:45 Adult health examination 320790698 Z00.00 see Risk Assessment and Lifestyle Change Counseling section aboveHM: labs utdcolonos copy due Counseling 348563923 Z71 .9 including cardiovasc ular risk reduction counseling Depression screening 171 033057 Z13.89 0 out of 27 phq 9mood is gooddepres dorys screening tool administer ed, entered into emr, scored and discussed, time greater than 7.5 minutes Screening for alcohol abuse 609936772 Z13.39 + auditwill work on decreasein g Amputated toe 870663180 Z89.429 R 2nd toecheck feet daily Type 2 nora betes mellitus without complication 119739847 E11.9 A1C 6.3 up from 5.8 but at Goal <6.5advise d to reduce ETOH particular ly shots doing well with more activity d/t jobno med changesrto 6 months for MM Alcohol dependence 85179 003 F10.20 Audit 43-4 everyday after work - drinking more with covid and less to do at nightis doing shotsadvis ed to reduce- pt agrees Mixed hyperlipidemia 267 337522 E78.2 Cholestero l is at goal LDL is 46Trigs are high at 281- will work on diet and less etoh Continue to work on diet and exercise as discussed Essential hypertension 17622274 I10 cannot check bpwill have him come in for bp checkif not at goal of < 130/80 will increase lisinopril to 20 mg [id number] Aydee Clarke NP , [facility], [address]ICE [address] [place] [address] 05/27/2020 09:04:01 05/28/2020 15:26:35 [id number] Anali Yanez D.OXu , [facility], OFFICE [address] [place] [address] 10/28/2020 07:51:21 11/19/2020 16:22:56 Essential hypertension 76882655 I10 cannot check bpwill have him come in for bp checkif not at goal of < 130/80 will increase lisinopril to 20 mg Adult heal th examination 527324476 Z00.00 see Risk Assessment and Lifestyle Change Counseling section above HM: labs utd colonoscop y due Counseling 368731573 Z71 .9 including cardiovasc ular risk reduction counseling Screening for alcohol abuse 216496913 Z13.39 + auditwill work on decreasein g Mixed hyperlipidemia 267 885728 E78.2 Cholestero l is at goal LDL is 50 Trigs are high at 472- will work on diet and less etoh Continue to work on diet and exercise as discussed Amputated toe 545958093 Z89.429 R 2nd toecheck feet daily Type 2 nora betes mellitus without complication 378606837 E11.9 A1C 6.1 at Goal <6.5 advised to reduce ETOH doing well with more activity d/t job no med changes rto 6 months for MM Alcohol dependence 35379 003 F10.20 Audit 7 more with pandemic 3-4 everyday after work - drinking more with covid and less to do at night is doing shots advised to reduce- pt agrees Neuropathy due to diabetes mellitus 216361305 E11.40 abn but stable discussed importance of checking feet regularly. no open toe shoesneed to protect feet [id number] Dorina Zaman RN , [facility], [address] [place] [address] 11/18/2020 08:16:03 11/19/2020 16:14:08 [id number] Yolette Ortiz RN [facility], [facility] [address] [place] [address] 11/26/2020 06:44:42 11/26/2020 12:47:20 [id number] Nikole Shoushtari . , [facility], [address]ICE [address] [place] [address] 06/03/2021 14:03:53 06/03/2021 14:47:31 Low back pain 008648164 M54.50 acute low back pain x 4 hoursNo Red FlagsCan use heat/ice to see if its helpfulMot rin for pain as neededTria l muscle relaxants for spasmsAdvi sed if no improvemen t over the next couple of weeks to f/u for PT referral Benign ess ential hypertension 5282386 I10 BP at goalBP goal < 130/80labs up to date [id number] Jarocho Browne MD , [facility], OFFICE [address] [place] [address] 06/13/2021 08:59:47 06/13/2021 09:45:05 Rib pain 736270952 R07.81 fall to a raised corner of a deck yesterdayn ow with positional muscular pain Left Ant chest wall and axilla. wincingly tender qenx5aw rib mid axillary line although no ecchymosis or wound is visibleL CTA he has experience d rib injuries before, so understand s duration of activity limiting pain with leftarm and truncal movementsr ec ibuprofen' image fo rproignost ics [id number] Aydee Clakre NP , [facility], [address] [place] [address] 11/03/2021 08:30:54 11/03/2021 09:02:37 Adult health examination 050210203 Z00.00 see Risk Assessment and Lifestyle Change Counseling section above HM: labs utd colonoscop y 11/26/2020 W/ 5 YR REPEATEYE EXAM 10/23/2020- WILL SCHEDULE Counseling 935322426 Z71 .9 including cardioascu lar risk reduction counseling Depression screening 171 939777 Z13.31 neg phq 9depressio n screening tool administer ed, entered into emr, scored and discussed, time greater than 7.5 minutes Screening for alcohol abuse 193619847 Z13.39 + auditwill work on decreasein g Amputated toe 585347601 Z89.429 R 2nd toecheck feet daily Alcohol dependence 26939 003 F10.20 Audit 7 more with pandemic and loss of dog 3-4 2x week and then on weekends advised to reduce- pt agrees Essential hypertension 95990511 I10 Bp not at goal of < 130/80 but just aboveno med changes Neuropathy due to diabetes mellitus 078938444 E11.40 A1C 6,4- sugars stablec/w metformin 1500 mg qdabn but stable discussed importance of checking feet regularly. no open toe shoesneed to protect feet Mixed hyperlipidemia 267 624156 E78.2 Cholestero l is at goal LDL is 45 Trigs are better 222 Continue to work on diet and exercise as discussed Obesity 407379637 E66.9 BMI 30.6keep low fat, low carb dietc/w regular activity [id number] Anali Yanez D.O. , [facility], [address]ICE [address] [place], [place] [address] 05/11/2022 09:14:18 05/11/2022 09:53:17 Essential hypertension 63284514 I10 Bp at goal of < 130/80no med changesf/u 3 mos Mixed hyperlipidemia 267 745487 E78.2 Cholestero l is at goal LDL is 45 Trigs 371- will work on better diet Continue to work on diet and exercise as discussed Amputated toe 405038300 Z89.429 R 2nd toecheck feet daily Obesity 258422761 E66.9 BMI 30.6keep low fat, low carb dietc/w regular activity Alcohol dependence 35606 003 F10.20 more with pandemic and loss of dog but had returned to baseline 3-4 2x week Neuropathy due to diabetes mellitus 833534465 E11.40 A1C 6.6 - slight increase from previous but overall sugars stablec/w metformin 1500 mg qdabn but stable discussed importance of checking feet regularly. 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 Genesis Coats [id number] Aydee Clarke NP FP, [facility], [address] [place] [address] 11/10/2022 08:27:54 11/10/2022 09:18:34 Adult health examination 425111192 Z00.00 see Risk Assessment and Lifestyle Change Counseling section above HM: labs utd colonoscop y 11/26/2020 W/ 5 YR REPEATEYE EXAM 10/23/2020- WILL SCHEDULE Depression screening 171 615954 Z13.31 depression screening tool administer edneg phq 9 Screening for alcohol abuse 880919843 Z13.39 Alcohol use screening tool administer edaudit 55 days a week- more on weekends. 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 no open toe shoesneed to protect feet Primary er ectile dysfunction 811793462 N52.9 Disorder o f nervous system due to type 2 diabetes mellitus 173657077 E11.49 A1C 6.4 -c/w metformin 1500 mg qdfully abn foot exam but stable discussed importance of checking feet regularly. no open toe shoesneed to protect feet [id number] Nikole Shoushtari . 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, etohwill repeat a1c 3 mos [id number] Yani Villegas RN Endoscopy , [facility] [address] [place] [address] 01/02/2024 06:45:56 01/02/2024 10:51:16 [id number] Junie Parekh MD , [facility], [address] [place] [address] 11/02/2023 08:07:58 11/02/2023 10:18:03 Rib pain 602985160 R07.81 Acute L rib pain s/p tripping on broken stairs and falling on L side on stone wall, 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 679930066 E11.3299 mild OUutd on exam 04/2023fol lowed by [place] yan get exam notes Type 2 nora betes mellitus without complication 535710448 E11.9 A1C 6.5 at Goal <6.5 advised to reduce ETOH doing well with more activity d/t job no med changes rto 6 months for MM Obesity 085942721 E66.9 BMI 30.4keep low fat, low carb dietc/w regular activity Alcohol dependence 92971 003 F10.20 continues with etoh 3-4 days week more on weekends d iscussed impact on EDencourag ed reduction Benign ess ential hypertension 1509145 I10 BP at goal c/w lisinopril continue to work on diet, exercise, and lowering salt intake as discussed Neuropathy due to diabetes mellitus 626933707 E11.40 A1C 6.5c/w metformin 2000 mg qdfully abn foot exam but stable discussed importance of checking feet regularly. no open toe shoesneed to protect feet Mixed hyperlipidemia 267 096204 E78.2 Cholestero l is at goal at 30c/w statinCont inue to work on diet and exercise as discussed Adult heal th examination 902983525 Z00.00 see Risk Assessment and Lifestyle Change Counseling section above HM: labs utd colonoscop y 11/26/2020 W/ 5 YR REPEATEYE EXAM 04/2023- WILL SCHEDULE declines psa Depression screening 171 776551 Z13.31 depression screening tool administer edneg phq 9mood is good Screening for alcohol abuse 160232130 Z13.39 Alcohol use screening tool administer edaudit 8etoh dependence discussed impact on sugars, kidney/braden er fx- understand s Screening for malignant neoplasm of prostate 967417334 Z12.5 If you have a prostate, the [...] expectancy .declines testing this year Rib pain 066263357 R07.8 1 injury 2 weeks agorf of ibuprofen Disorder o f nervous system due to type 2 diabetes mellitus 314446559 E11.49 A1C 6.5c/w metformin 1500 mg qdfully abn foot exam but stable discussed importance of checking feet regularly. 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 214469738 E11.3299 mild OUutd on exam 06/2023fol lowed by [employer] Type 2 nora betes mellitus without complication 006354442 E11.9 A1C 6.9 at Goal <7.0 advised to reduce ETOH doing well with more activity d/t job no med changes rto 6 months for MM Obesity 483475435 E66.9 BMI 30.4keep low fat, low carb dietc/w regular activity Alcohol dependence 48414 003 F10.20 etoh 4-5 x week few drinkswork ing on reducing weekday drinkingun derstands impact on blood sugar, liver Benign ess ential hypertension 8330696 I10 BP at goal c/w lisinopril continue to work on diet, exercise, and lowering salt intake as discussed Neuropathy due to diabetes mellitus 454291152 E11.40 A1C 6.9 up from 6.5is going to focus on diet, less weekday etohc/w metformin 2000 mg qdfully abn foot exam but stable discussed importance of checking feet regularly. no open toe shoesneed to protect feet Mixed hyperlipidemia 267 066557 E78.2 Cholestero l is at goal at 30c/w statinCont inue to work on diet and exercise as discussed Influenza vaccination declined 886489224 Z28.21 Health Concerns Section Related Observation LastModified by Organization Detai ls LastModified Time None Recorded Concern Status LastModified by Organization Details LastModified Time None Recorded Advance Directives Directive None Recorded Payers Encounter Date Sequence Insurance Name Policy Number Policy Padron Covered Member ID Padron Member ID Guarantor Name 11/10/2022 1 [facility] [employer] 111 Timo Meng [id number] Timo Meng 05/10/2023 1 [employer] 111 Timo Meng [id number] Timo Meng 11/02/2023 1 [place] 111 Timo Meng [id number] Timo Meng 11/13/2023 1 [place] 111 Timo Meng [id number] Timo Meng 05/15/2024 1 [place] 111 Timo Meng [id number] Timo Meng Notes Date Note Type Note [...] decline in exercise capacity Aydee Clarke NP [address] [place] [address], [phone], [facility] 11/10/2022 09:20:06 3 text/html VMG DiabetesReported bypatient.Review [...] in exercise capacity saw dentist concern re: [id number] up from 6.4- has beenetoh 3-4 days a week - few after work Nikole Pandya. [address] [place] [address], [phone], [facility] 05/13/2023 15:47:09 4 text/html 10/30/2023 injury at [...] better than the ice. Junie Parekh MD [address] [place] [address], [phone], [facility] 11/02/2023 09:54:13 4 text/html Physical Exam/MaleReported bypatient.PHAPatient [...] identified barriers to care Context:Diabetes;Peripheral vascular disease (51092) Associated Symptoms:no muscle pain; no dyspnea; no [...] decline in exercise capacity Aydee Clarke NP [address] [place] [address], [phone], [facility] 11/13/2023 13:01:29 text/html VMG DiabetesReported bypatient.Review finger sticks:Fasting`150 Duration:chronic Control:usually well controlled; treated with diet and oral medications; Hemoglobin A1C goal is less than 7; BP usually runs 120-130/80-85; BP goal is lessthan 130/80 Compliance:compliant with medications; Patient understands medications are to reduce blood sugar and control diabetes; compliant with follow-up visits;noncompliant with home glucose monitoring; Taking LUSI or ARB; Taking a statin medications Self [...] identified barriers to care Context:Diabetes;Peripheral vascular disease (02135) Associated Symptoms:no muscle pain; no dyspnea; no [...] keeping it to weekends Aydee Clarke NP [address] [place] [address], [phone], [facility] 05/15/2024 08:59:35
--- OUTSIDE RECORDS SUMMARY | 2024-10-21 11:10 | XMS_ITS | Clinical Summary ---
Author Organization [facility] Address [address] [employer] [facility] [address] [place] [address] Phone Care Team Providers Care Customer Service Advisor Name Role Phone Orin Joshi NP Primary Care Provider Allergies No known active allergies Medications Medication Sig Dispensed Refills Start Date End Date Status simvastatin (ZOCOR) 20 MG tablet Take 20 mg by mouth nightly. Active metformin HCl (METFORMIN ORAL) Take 500 tablets by mouth 2 (two) times a day. Active lisinopril (PRINIVIL,ZESTRIL) 10 MG tablet Take 10 mg by mouth daily. Active omega 8-kwg-lcq-fish oil 1,000 mg (120 mg-180 mg) Cap [...] Medical Devices Not on file Care Teams Customer Service Advisor Relationship Specialty Start Date End Date Orin Joshi NP [address] [place] [address] PCP - General 11/26/20 Additional Source Comments The information contained in this document represents components of the legal health record. It is not the complete legal health record.[facility]
--- OUTSIDE RECORDS SUMMARY | 2024-10-21 11:11 | XMS_ITS | Encounter Summary ---
Author Organization [facility] Address [address] [employer] [facility] [address] [place] [address] Phone Care Team Providers Care Sub Acute Care Nurse Name Role Phone JobAnali bennett Blaze MENA Primary Care Provider [phone] Orin Joshi NP Primary Care Provider [phone] Encounter Details Date Type Department Care Team (Latest Contact Info) Description 11/23/2020 Transcribe Orders Virtual Department [address] [place] [address] Mynor Saab MD [address] [place] [address] [email or web address] Pre-procedure lab exam (Primary Dx) Social History [...] Order (11/23/2020 1:55 PM EDT) COVID-19 Comment [id number] [facility] COVID Testing Status Sent to [facility] 11/23/2020 1:55 PM EDT 11/23/2020 4:51 PM EDT Mynor Saab MD BODY FLUIDS AND STOO LS ORDERABLES [facility] [address] [place] [address] documented in this encounter Visit Diagnoses Diagnosis Pre-procedure lab exam- Primary Pre-procedural laboratory examination documented in this encounter Care Teams Sub Acute Care Nurse Relationship Specialty Start Date End Date Anali Yanez DO [address] [place] [address] PCP - General Internal Medicine 01/31/18 11/25/20 Orin Joshi NP [address] [place] [address] PCP - General 11/26/20 documented as of this encounter Additional Source Comments The information contained in this document represents components of the legal health record. It is not the complete legal health record.[facility]
--- OUTSIDE RECORDS SUMMARY | 2024-10-21 11:11 | XMS_ITS | Encounter Summary ---
Author Organization [facility] Address [address] [facility] [address] [place] [address] Phone Care Team Providers Care Proof Operator Name Role Phone Anali Yanez DO Primary Care Provider [phone] Orin Joshi NP Primary Care Provider [phone] Encounter Details Date Type Department Care Team (Late st Contact Info) Description 02/04/2018 Procedure Pass OR Admitting Dept - Virtual Department [address] [place] [address] Social History Tobacco Use Types Packs/Day Years [...] on filedocumented in this encounter Care Teams Proof Operator Relationship Specialty Start Date End Date Anali Yanez DO [address] [place] [address] PCP - General Internal Medicine 01/31/18 11/25/20 Orin Joshi NP [address] [place] [address] PCP - General 11/26/20 documented as of this encounter Additional Source Comments The information contained in this document represents components of the legal health record. It is not the complete legal health record.[facility]
== END 2024-10-21 10:13 | disposition home or self-care (01) ==
LOC: HO.HOS 09:44
DX: M65.4 Radial styloid tenosynovitis [de Quervain] (principal)
CPT/HCPCS: 99214

== ENCOUNTER 2024-11-11 11:27 | Day surgery (SDC) | payer BC, SELFPAY ==
--- OUTSIDE RECORDS SUMMARY | 2024-10-22 15:56 | XMS_ITS | Encounter Summary ---
Author Organization [facility] Address [address] [employer] [facility] [address] [place] [address] Phone Care Team Providers Care Sales Support Technician Name Role Phone JobAnali bennett Blaze MENA Primary Care Provider [phone] Orin Joshi NP Primary Care Provider [phone] Encounter Details Date Type Department Care Team (Latest Contact Info) Description 11/23/2020 Transcribe Orders Virtual Department [address] [place] [address] Mynor Saab MD [address] [place] [address] [email or web address] Pre-procedure lab exam (Primary Dx) Social History [...] Order (11/23/2020 1:55 PM EDT) COVID-19 Comment [id number] [facility] COVID Testing Status Sent to [facility] 11/23/2020 1:55 PM EDT 11/23/2020 4:51 PM EDT Mynor Saab MD BODY FLUIDS AND STOO LS ORDERABLES [facility] [address] [place] [address] documented in this encounter Visit Diagnoses Diagnosis Pre-procedure lab exam- Primary Pre-procedural laboratory examination documented in this encounter Care Teams Sales Support Technician Relationship Specialty Start Date End Date Anali Yanez DO [address] [place] [address] PCP - General Internal Medicine 01/31/18 11/25/20 Orin Joshi NP [address] [place] [address] PCP - General 11/26/20 documented as of this encounter Additional Source Comments The information contained in this document represents components of the legal health record. It is not the complete legal health record.[facility]
--- OUTSIDE RECORDS SUMMARY | 2024-10-22 15:56 | XMS_ITS | Data Portability ---
Author Organization [facility], , [facility] OFFICE Address [address] [place] [address] [place] [address] Care Team Providers Care Manager Location Name Role Phone AYDEE CLARKE Primary Care Provider [employer] [facility] Supervisor Agency Appointments [phone] [facility] Urologist Assessment Encounter Date Assessment [...] Details Appointments LAB Follow-Up 2024 07:30A M [facility] Lab Not available Not available Not available Wellness Visit 30 2024 09:15A Elmer Clarke, PABLO Not available Not available Not available Lab HbA1c (hemoglob in A1c), blood 2022 024 [facility], [address], [place], [address], 08/09/2023 10:57:33 Referral gastroent erologist referral - per dentist as significa nt erosion of enamel 2022 023 [facility], [address] [place], [address], 09/28/2023 12:31:18 Procedures None recorded. Surgeries None recorded. Imaging XR, ribs, unilatera l - eval for fractured ribs, s/p fall on stone wall on L side [address] [facility] ([place] [place] (Imaging), [address] , [place], [address], 11/02/2023 10:18:03 Medication Orders simvastat in 20 mg tablet [address] [facility]acy #[id number], [address] [place] [address], [address], 05/15/2024 08:59:23 metformin ER 500 mg tablet,ex tended release [address] [facility]acy #0818, [address] [place] [address], [address], 05/15/2024 08:59:23 lisinopri l 10 mg tablet [address] [facility]armacy #0818, [address] [place], [address], 05/15/2024 08:59:22 ibuprofen 800 mg tablet [facility]23 [email or web address] [address] [place], [address], 11/13/2023 10:26:24 lisinopri l 10 mg tablet [address] [facility]armacy #0818, [address] [place], [address], 11/13/2023 10:26:18 ibuprofen 800 mg tablet [address] [facility]/Pharmacy #0818, [address] [place], [address], 11/02/2023 08:27:07 sildenafi l 50 mg tablet 2022 [email or web address] [address] [place], [address], 11/13/2023 09:54:42 Patient TargetsNo targets recorded. Patient Instructions Encounter Date Encounter Id Patient Instructions Last Modified By Organization Details Last Modified Time 11/10/2022 [id number] high cholesterol lifestyle changes pkeough Not available 11/10/2022 09:18:51 Well Visit 50 to 65: Care Instructions pkeough Not available 11/10/2022 09:18:50 11/13/2023 [id number] high blood pressure: care instructions pkeough Not available 11/13/2023 10:26:16 learning about high blood pressure pkeough Not available 11/13/2023 10:26:16 05/15/2024 [id number] high blood pressure: care instructions pkeough Not available 05/15/2024 08:59:20 learning about high blood pressure pkeough Not available 05/15/2024 08:59:20 Reason for Referral Supervisor Agency Appointments Referral for Erosion of teeth per dentist [...] furth er confi rmati on Not Available [address], [address], 11/02/2022 11:36:14 11/03/19 23 11/02/2022 HGB A1C estimated average glucose 137.0 mg/dL Not Available [address], [address], 11/02/2022 11:36:14 11/03/19 23 11/02/2022 BASIC METAB OLIC PANEL glucose 151 mg/dL 70-100 high Not Available [address], [address], 11/02/2022 15:34:56 11/03/19 23 11/02/2022 BASIC METAB OLIC PANEL BUN 17 mg/dL 7-18 Not Available [address], [address], 11/02/2022 15:34:56 11/03/19 23 11/02/2022 BASIC METAB OLIC PANEL creatinine 1.0 mg/dL 0.8-1. 3 Not Available [address], [address], 11/02/2022 15:34:56 11/03/19 23 11/02/2022 BASIC METAB OLIC PANEL B/C 17.0 ratio Not Available [address], [address], 11/02/2022 15:34:56 11/03/19 23 11/02/2022 BASIC METAB [...] be used in pregn babak. Not Available [address], [address], 11/02/2022 15:34:56 11/03/19 23 11/02/2022 BASIC METAB OLIC PANEL sodium 138 mmol/ L 136-14 5 Not Available [address], [address], 11/02/2022 15:34:56 11/03/19 23 11/02/2022 BASIC METAB OLIC PANEL potassium 4.3 mmol/ L 3.5-5. 1 Not Available [address], [address], 11/02/2022 15:34:56 11/03/19 23 11/02/2022 BASIC METAB OLIC PANEL chloride 102 mmol/ L 96-107 Not Available [address], [address], 11/02/2022 15:34:56 11/03/19 23 11/02/2022 BASIC METAB OLIC PANEL anion gap 9.2 5.0-15 .0 Not Available [address], [address], 11/02/2022 15:34:56 11/03/19 23 11/02/2022 BASIC METAB OLIC PANEL CO2 27 mmol/ L 21-32 Not Available [address], [address], 11/02/2022 15:34:56 11/03/19 23 11/02/2022 BASIC METAB OLIC PANEL calcium 8.9 mg/dL 8.5-10 .3 Not Available [address], [address], 11/02/2022 15:34:56 11/03/1911/02/2022 LIPID PANEL cholesterol 143 mg/dL <200 mg/dl Sudhir able 200-2 39 mg/dl Borde rline High >240 mg/dl High Not Available [address], [address], 11/02/2022 15:34:57 11/03/19 23 11/02/2022 LIPID PANEL triglyceride s 317 mg/dL high <150 mg/dL Viki l 150-1 99 mg/dL Borde rline High 200-4 99 mg/dL High >500 mg/dL Very High Not Available [address], [address], 11/02/2022 15:34:57 11/03/19 23 11/02/2022 LIPID PANEL direct HDL 38 mg/dL <40 mg/dl - Major Risk for CHD >60 mg/dl - Negat berta Risk for CHD Not Available [address], [address], 11/02/2022 15:34:57 11/03/1911/02/2022 DIREC T LDL direct [...] r is not necmeaghan maisha. Not Available [address], [address], 11/02/2022 16:48:05 05/03/2005/03/2023 HGB A1C hemoglobin A1C [...] furth er confi rmati on Not Available [address], [address], 05/03/2023 12:05:19 05/03/2005/03/2023 HGB A1C estimated average glucose 157.1 mg/dL Not Available [address], [address], 05/03/2023 12:05:19 05/03/2005/03/2023 BASIC METAB OLIC PANEL glucose 173 mg/dL 70-100 high Not Available [address], [address], 05/03/2023 12:12:20 05/03/2005/03/2023 BASIC METAB OLIC PANEL BUN 17 mg/dL 7-18 Not Available [address], [address], 05/03/2023 12:12:20 05/03/2005/03/2023 BASIC METAB OLIC PANEL creatinine 1.0 mg/dL 0.8-1. 3 Not Available [address], [address], 05/03/2023 12:12:20 05/03/2005/03/2023 BASIC METAB OLIC PANEL B/C 17.0 ratio Not Available [address], [address], 05/03/2023 12:12:05/03/2005/03/2023 BASIC METAB OLIC PANEL GFR [...] be used in pregn babak. Not Available [address], [address], 05/03/2023 12:12:20 05/03/2005/03/2023 BASIC METAB OLIC PANEL sodium 138 mmol/ L 136-14 5 Not Available [address], [address], 05/03/2023 12:12:20 05/03/2005/03/2023 BASIC METAB OLIC PANEL potassium 4.2 mmol/ L 3.5-5. 1 Not Available [address], [address], 05/03/2023 12:12:20 05/03/2005/03/2023 BASIC METAB OLIC PANEL chloride 102 mmol/ L 96-107 Not Available [address], [address], 05/03/2023 12:12:20 05/03/2005/03/2023 BASIC METAB OLIC PANEL anion gap 11.9 5.0-15 .0 Not Available [address], [address], 05/03/2023 12:12:20 05/03/2005/03/2023 BASIC METAB OLIC PANEL CO2 24 mmol/ L 21-32 Not Available [address], [address], 05/03/2023 12:12:20 05/03/20 23 05/03/2023 BASIC METAB OLIC PANEL calcium 9.0 mg/dL 8.5-10 .3 Not Available [address], [address], 05/03/2023 12:12:20 05/03/2005/03/2023 LIPID PANEL cholesterol 148 mg/dL <200 mg/dl Sudhir able 200-2 39 mg/dl Borde rline High >240 mg/dl High Not Available [address], [address], 05/03/2023 12:12:21 05/03/2005/03/2023 LIPID PANEL triglyceride s 323 mg/dL high <150 mg/dL Viki l 150-1 99 mg/dL Borde rline High 200-4 99 mg/dL High >500 mg/dL Very High Not Available [address], [address], 05/03/2023 12:12:21 05/03/20 23 05/03/2023 LIPID PANEL direct HDL 42 mg/dL <40 mg/dl - Major Risk for CHD >60 mg/dl - Negat berta Risk for CHD Not Available [address], [address], 05/03/2023 12:12:21 05/03/20 23 05/03/2023 DIREC T [...] r is not jose ferrera. Not Available [address], [address], 05/03/2023 14:38:05 05/03/20 23 05/03/2023 MICRO ALBUM IN/CR EATIN INE RATIO PANEL , URINE microalbumin 8.0 mg/L 1.3-20 .0 Not Available [address], [address], 05/03/2023 15:48:25 05/03/20 23 05/03/2023 MICRO ALBUM IN/CR EATIN INE RATIO PANEL , URINE creatinine urine 139.3 mg/dL 30.0-1 25.0 high Not Available [address], [address], 05/03/2023 15:48:25 05/03/20 23 05/03/2023 MICRO ALBUM IN/CR EATIN INE RATIO PANEL , URINE microalb/cre at ratio 5.7 mg/g_ creat 0.0-29 .0 Not Available [address], [address], 05/03/2023 15:48:25 08/09/19 24 08/09/2023 BASIC METAB OLIC PANEL glucose 168 mg/dL 70-100 high Not Available [address], [address], 08/09/2023 10:55:05 08/09/19 24 08/09/2023 BASIC METAB OLIC PANEL BUN 17 mg/dL 7-18 Not Available [address], [address], 08/09/2023 10:55:05 08/09/19 24 08/09/2023 BASIC METAB OLIC PANEL creatinine 1.1 mg/dL 0.8-1. 3 Not Available [address], [address], 08/09/2023 10:55:05 08/09/19 24 08/09/2023 BASIC METAB OLIC PANEL B/C 15.5 ratio Not Available [address], [address], 08/09/2023 10:55:05 08/09/19 24 08/09/2023 BASIC METAB [...] be used in pregn babak. Not Available [address], [address], 08/09/2023 10:55:05 08/09/19 24 08/09/2023 BASIC METAB OLIC PANEL sodium 139 mmol/ L 136-14 5 Not Available [address], [address], 08/09/2023 10:55:05 08/09/19 24 08/09/2023 BASIC METAB OLIC PANEL potassium 4.3 mmol/ L 3.5-5. 1 Not Available [address], [address], 08/09/2023 10:55:05 08/09/19 24 08/09/2023 BASIC METAB OLIC PANEL chloride 102 mmol/ L 96-107 Not Available [address], [address], 08/09/2023 10:55:05 08/09/19 24 08/09/2023 BASIC METAB OLIC PANEL anion gap 10.8 5.0-15 .0 Not Available [address], [address], 08/09/2023 10:55:05 08/09/19 24 08/09/2023 BASIC METAB OLIC PANEL CO2 26 mmol/ L 21-32 Not Available [address], [address], 08/09/2023 10:55:05 08/09/19 24 08/09/2023 BASIC METAB OLIC PANEL calcium 8.9 mg/dL 8.5-10 .3 Not Available [address], [address], 08/09/2023 10:55:05 08/09/19 24 08/09/2023 HGB A1C [...] furth er confi rmati on Not Available [address], [address], 08/09/2023 10:57:32 08/09/19 24 08/09/2023 HGB A1C estimated average glucose 157.1 mg/dL Not Available [address], [address], 08/09/2023 10:57:32 10/25/19 24 10/25/2023 HGB A1C [...] furth er confi rmati on Not Available [address], [address], 10/25/2023 11:15:39 10/25/19 24 10/25/2023 HGB A1C estimated average glucose 139.9 mg/dL Not Available [address], [address], 10/25/2023 11:15:39 10/25/19 24 10/25/2023 BASIC METAB OLIC PANEL glucose 149 mg/dL 70-100 high Not Available [address], [address], 10/25/2023 16:27:42 10/25/19 24 10/25/2023 BASIC METAB OLIC PANEL BUN 21 mg/dL 7-18 high Not Available [address], [address], 10/25/2023 16:27:42 10/25/19 24 10/25/2023 BASIC METAB OLIC PANEL creatinine 1.0 mg/dL 0.8-1. 3 Not Available [address], [address], 10/25/2023 16:27:42 10/25/19 24 10/25/2023 BASIC METAB OLIC PANEL B/C 21.0 ratio Not Available [address], [address], 10/25/2023 16:27:42 10/25/19 24 10/25/2023 BASIC METAB [...] be used in pregn babak. Not Available [address], [address], 10/25/2023 16:27:42 10/25/19 24 10/25/2023 BASIC METAB OLIC PANEL sodium 139 mmol/ L 136-14 5 Not Available [address], [address], 10/25/2023 16:27:42 10/25/19 24 10/25/2023 BASIC METAB OLIC PANEL potassium 4.4 mmol/ L 3.5-5. 1 Not Available [address], [address], 10/25/2023 16:27:42 10/25/19 24 10/25/2023 BASIC METAB OLIC PANEL chloride 101 mmol/ L 96-107 Not Available [address], [address], 10/25/2023 16:27:42 10/25/19 24 10/25/2023 BASIC METAB OLIC PANEL anion gap 12.9 5.0-15 .0 Not Available [address], [address], 10/25/2023 16:27:42 10/25/19 24 10/25/2023 BASIC METAB OLIC PANEL CO2 25 mmol/ L 21-32 Not Available [address], [address], 10/25/2023 16:27:42 10/25/19 24 10/25/2023 BASIC METAB OLIC PANEL calcium 9.1 mg/dL 8.5-10 .3 Not Available [address], [address], 10/25/2023 16:27:42 10/25/19 24 10/25/2023 LIPID PANEL cholesterol 113 mg/dL <200 mg/dl Sudhir able 200-2 39 mg/dl Borde rline High >240 mg/dl High Not Available [address], [address], 10/25/2023 16:27:43 10/25/19 24 10/25/2023 LIPID PANEL triglyceride s 205 mg/dL <150 mg/dL Viki l 150-1 99 mg/dL Borde rline High 200-4 99 mg/dL High >500 mg/dL Very High Not Available [address], [address], 10/25/2023 16:27:43 10/25/19 24 10/25/2023 LIPID PANEL direct HDL 42 mg/dL <40 mg/dl - Major Risk for CHD >60 mg/dl - Negat berta Risk for CHD Not Available [address], [address], 10/25/2023 16:27:43 10/25/19 24 10/25/2023 LDL - [...] r is not terrimeaghan maisha. Not Available [address], [address], 10/25/2023 16:27:44 10/25/19 24 10/26/2023 IMMUN OGLOB ULIN A immunoglobul in A 125 mg/dL 47-310 normal Not Available [facility] [place] [facility] [address], [address], 10/26/2023 16:02:40 10/25/19 24 10/26/2023 TISSU E TRANS GLUTA SANDRINE E AB, IGA tissue transglutami nase Ab, IgA <1.0 U/mL normal Value Inter preta tion ----- ----- ----- ---- <15.0 Antib tobias not detec audelia > or = 15.0 Antib tobias detec audelia Not Available [facility] [place] [address], [address], 10/26/2023 16:02:41 01/02/20 24 01/02/2024 POC GLU POC glu 179 70 - 100 high Not Available [facility] [address] [place] [address], [address], 01/04/2024 09:10:15 05/08/20 24 05/08/2024 HGB A1C [...] furth er confi rmati on Not Available [address], [address], 05/08/2024 11:51:31 05/08/20 24 05/08/2024 HGB A1C estimated average glucose 151.3 mg/dL Not Available [address], [address], 05/08/2024 11:51:31 05/08/20 24 05/08/2024 MICRO ALBUM IN/CR EATIN INE RATIO PANEL , URINE microalbumin 21.0 mg/L 1.3-20 .0 high Not Available [address], [address], 05/08/2024 14:38:50 05/08/2005/08/2024 MICRO ALBUM IN/CR EATIN INE RATIO PANEL , URINE creatinine urine 121.7 mg/dL 30.0-1 25.0 Not Available [address], [address], 05/08/2024 14:38:50 05/08/20 24 05/08/2024 MICRO ALBUM IN/CR EATIN INE RATIO PANEL , URINE microalb/cre at ratio 17.3 mg/g_ creat 0.0-29 .0 Not Available [address], [address], 05/08/2024 14:38:50 05/08/20 24 05/09/2024 BASIC METAB OLIC PANEL glucose 182 mg/dL 70-100 high Not Available [address], [address], 05/09/2024 15:14:00 05/08/20 24 05/09/2024 BASIC METAB OLIC PANEL BUN 15 mg/dL 7-18 Not Available [address], [address], 05/09/2024 15:14:00 05/08/20 24 05/09/2024 BASIC METAB OLIC PANEL creatinine 1.1 mg/dL 0.8-1. 3 Not Available [address], [address], 05/09/2024 15:14:00 05/08/20 24 05/09/2024 BASIC METAB OLIC PANEL B/C 13.6 ratio Not Available [address], [address], 05/09/2024 15:14:00 05/08/20 24 05/09/2024 BASIC METAB [...] be used in pregn babak. Not Available [address], [address], 05/09/2024 15:14:00 05/08/20 24 05/09/2024 BASIC METAB OLIC PANEL sodium 140 mmol/ L 136-14 5 Not Available [address], [address], 05/09/2024 15:14:00 05/08/20 24 05/09/2024 BASIC METAB OLIC PANEL potassium 4.9 mmol/ L 3.5-5. 1 Not Available [address], [address], 05/09/2024 15:14:00 05/08/20 24 05/09/2024 BASIC METAB OLIC PANEL chloride 101 mmol/ L 96-107 Not Available [address], [address], 05/09/2024 15:14:00 05/08/20 24 05/09/2024 BASIC METAB OLIC PANEL anion gap 9.0 5.0-15 .0 Not Available [address], [address], 05/09/2024 15:14:00 05/08/20 24 05/09/2024 BASIC METAB OLIC PANEL CO2 30 mmol/ L 21-32 Not Available [address], [address], 05/09/2024 15:14:00 05/08/20 24 05/09/2024 BASIC METAB OLIC PANEL calcium 9.5 mg/dL 8.5-10 .3 Not Available [address], [address], 05/09/2024 15:14:00 11/02/19 24 11/02/2023 XR, ribs, unila teral CLINIC AL HISTOR Y: Left-s ided chest wall pain after a fall. Histor y of old fractu res. TECHNI QUE: At least 3 views of the left ribs are obtain ed. COMPAR SANDEE: 2020, 017 FINDIN GS: There are global supply chain director ior and latera l fractu res of the left fourth , fifth, sixth ribs. There are fractu re along the latera l aspect of the left sevent h, eighth and ninth ribs. There are fractu re of along the global supply chain director ior and beata latera l aspect s [...] ended. Vinh Thurston ana: Heladio Ibrahim ms [facility] (Imaging) [address], [place], [address], 11/13/2023 10:06:59 Result Notes None recorded. Procedures Surgical History Date Name Laterality Status Provider Name and Address Organization Details Recorded Time 01/02/2024 Katiana - EGD completed Mynor Saab MD [address] [place] [address], [id number], [facility] 01/02/2024 07:51:46 Imaging Results Imaging Date Name Status LastModified by Organiz ation Details LastModified Time 11/02/2023 XR, ribs, unilateral completed [facility] (Imaging) [address], [place], [address], 11/13/2023 10:06:59 Procedure Notes None recorded. Medical [...] You Wear A Helmet When Biking? Yes [email or web address] Information not available 06/24/2015 What Is Your Level Of Caffeine Consumption? None [email or web address] Information not available 05/13/2020 How Much Tobacco Do You Chew? None Information not available 12/31/2012 What Type Of Diet Are You Following? REGULAR [email or web address] Information not available 06/24/2015 Which Illicit Or Recreational Drugs Have You Used? No Denies [email or web address] Information not available 01/15/2018 Do You Or Have You Ever Used E-cigarettes Or Vape? 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 0 Information not available 12/31/2012 Are There Any Guns Present In Your Home? No [email or web address] Information not available 06/24/2015 Live Alone Or With Others? With Others [email or web address] Information not available 06/08/2011 Patient Has Health Care Proxy Signed And In Chart Yes [email or web address] Information not available 11/14/2022 Marital Status [email or web address] Informatio n not available 03/01/2012 Mosquito Repellent Used Routinely Yes Information not available 01/15/2018 What Was The Date Of Your Most Recent Tobacco Screening? 05/11/2022 05/11/22 CJ [email or web address] Information not available 05/11/2022 How Many Children Do You Have? 0 [email or web address] Information not available 06/08/2011 Seat Belts Used Routinely Yes [email or web address] Information not available 06/24/2015 Smoke Alarm In Home Yes [email or web address] Information not available 06/24/2015 Do You Or Have You Ever Used Smokeless Tobacco? Never Used Smokeless Tobacco 10/28/2019 TG [email or web address] Information not available 10/28/2019 How Much Tobacco Do You Smoke? No 05/11/22 CJ [email or web address] Information not available 05/11/2022 What Types Of Sporting Activities Do You Participate In? No Information not available 01/15/2018 General Stress Level Low [email or web address] Information not available 06/24/2015 Do You Use Sunscreen Routinely? Yes [email or web address] Information not available 06/24/2015 How Many Years Have You Smoked Tobacco? 0 [email or web address] Information not available 10/28/2019 Sex: Male Functional [...] SNOMED-CT Code Diagnosis ICD10 Code Diagnosis Note [id number] [facility] [place] [address] [place] [address] 08/28/2000 11:45:00 08/12/2008 02:02:29 [id number] [facility] [place] [address] [place] [address] 09/07/2006 09:25:16 09/07/2006 13:17:47 [id number] LAB - [address] [place] [address] 09/27/2006 09:47:41 09/27/2006 09:47:45 [id number] [facility], [address] [place] [address] 09/27/2006 10:01:46 09/27/2006 11:52:26 [id number] [facility], [address] [place] [address] 10/15/2006 14:29:42 10/15/2006 17:10:27 [id number] [facility] [place] [place] [address] [place] [address] 10/17/2006 08:03:38 10/17/2006 09:08:25 [id number] [facility] [place] [place] [address] [place] [address] 01/09/2007 12:05:24 01/09/2007 14:30:41 [id number] LAB - [facility] [address] [id number] 01/10/2007 07:28:27 01/10/2007 07:28:32 [id number] LAB - [facility] [place] [address] [place] [address] 01/11/2007 08:57:27 01/11/2007 08:57:35 [id number] [facility] [place] [place] [address] [place] [address] 02/01/2007 08:12:35 02/01/2007 10:48:02 [id number] LAB - [facility] [address] [place] [address] 06/11/2007 07:56:03 06/11/2007 07:56:12 [id number] [facility] [place] [place] [address] [place] [address] 06/25/2007 09:01:34 08/12/2008 02:02:29 [id number] Podiatry, [facility] [address] [place] [address] 07/09/2007 09:05:27 07/10/2007 09:23:03 [id number] LAB - [facility] [address] [place] [address] 11/19/2007 10:32:30 11/19/2007 10:32:45 [id number] [facility] [place] [address] [place] [address] 05/12/2009 10:30:12 05/13/2009 08:35:11 [id number] [facility] [place] [address] [place] [address] 06/09/2009 14:41:02 06/10/2009 09:44:59 [id number] Endocrino logy, [facility] [place] [address] 06/23/2009 08:26:26 06/24/2009 09:26:23 [id number] Endocrino logy, [facility] [place] [address] 08/19/2009 09:27:35 08/19/2009 14:10:39 [id number] Endocrino logy, [facility] [address] [place] [address] 11/18/2009 09:29:15 11/18/2009 10:41:01 [id number] , [facility] [address] [place] [address] [place] [address] 09/20/2010 12:01:55 09/20/2010 16:23:[id number] [place] [address] 06/21/2011 09:53:16 06/21/2011 10:13:02 [id number] , [address] [place] [address] 01/23/2012 08:10:14 01/23/2012 09:04:[id number] [place] [address] 03/01/2012 08:33:47 03/01/2012 09:08:14 [id number] Dorina Coker [address] [place], [place] [address] 12/31/2012 11:03:27 01/01/2013 07:35:53 [id number] Jessica Lockett i , [address] [place] [address] 05/19/2013 09:39:48 05/19/2013 09:56:44 [id number] Ami Ledesma , [address] [place] [address] 08/28/2013 15:02:43 08/28/2013 15:25:22 [id number] Rosi Reyes , [address] [place] [address] 02/26/2014 09:23:19 02/26/2014 09:55:23 [id number] Montana Foreman III, MD , [address] [place] [address] 01/05/2015 10:38:43 01/05/2015 10:57:32 [id number] Pilar Church MA , [address] [place] [address] 02/23/2015 09:02:42 02/23/2015 09:28:05 [id number] Aydee Clarke NP , [address] [place] [address] 1 02/25/2015 09:28:28 02/25/2015 10:08:25 [id number] JUAN Lewis, [facility] [place] [address] [place] [address] [place] [address] 1 02/26/2015 09:13:35 02/26/2015 09:42:40 [id number] PABLO Sommers, [facility] [place] [address] [place] [address] [place] [address] 03/01/2015 09:16:53 03/01/2015 09:27:47 [id number] PABLO Sommers, [facility] [place], [address] [place], [place] [address] 06/24/2015 08:26:01 06/24/2015 09:06:08 [id number] Marcie Washington , [facility] [place], [address] [place] [address] 1 12/01/2015 09:44:27 12/01/2015 10:33:57 [id number] MD RENU Barreto, [address] [place] [address] 1 01/25/2016 09:18:19 01/25/2016 10:06:23 [id number] PABLO Sommers, [facility] [place], [address] [place] [address] 1 06/28/2016 09:35:15 06/29/2016 09:39:46 [id number] PABLO Anna, [address] [place] [address] 1 10/10/2016 08:00:49 10/12/2016 15:46:30 [id number] PABLO Sommers, [facility] [place], [address] [place] [address] 1 01/09/2017 07:57:33 01/10/2017 09:04:13 [id number] Anali SEARS, [facility] [place], [address] [place] [address] 1 02/09/2017 11:28:09 02/09/2017 12:27:37 [id number] Lety SEARS, [facility] [place], [address] [place] [address] 1 01/15/2018 10:28:34 01/15/2018 11:35:54 [id number] Joudy-Radha Dinnall, DPM Podiatry, [facility] [address] [facility] [place] [address] 01/30/2018 11:02:26 01/30/2018 14:26:05 [id number] Anali SEARS, [facility] [place] [address] [place] [address] 01/30/2018 15:50:18 01/30/2018 18:24:23 [id number] Joudy-Radha Dinnall, DPM Podiatry, [facility] [address] [place] [address] 02/12/2018 10:26:41 02/12/2018 11:12:01 [id number] Joudy-Radha Dinnall, DPM Podiatry, [facility] [address] [facility] [place] [address] 02/19/2018 08:51:40 02/19/2018 09:26:45 [id number] Joudy-Radha Dinnall, DPM Podiatry, [facility] [address] [facility] [address] 03/05/2018 08:38:01 03/07/2018 14:19:36 [id number] Joudy-Radha Dinnall, DPM Podiatry, [address] [place] [address] 05/07/2018 09:13:31 05/07/2018 09:50:36 [id number] Joudy-Radha Dinnall, DPM Podiatry, [address] [place] [address] 05/21/2018 08:45:10 05/21/2018 16:20:21 [id number] Joudy-Radha Dinnall, DPM Podiatry, [address] [place] [address] 07/09/2018 09:09:03 07/10/2018 08:20:30 [id number] PABLO Sommers, [facility] [place] [address] [place], [place] [address] 09/06/2018 14:25:20 09/06/2018 15:02:23 [id number] PABLO Sommers, [facility] [place] OFFICE [address] [place], [place] [address] 03/10/2019 15:51:01 03/10/2019 16:23:56 [id number] Nikole Shocarlos . MD SEARS, [facility] [place] OFFICE [address] [place] [address] [place] [address] 10/28/2019 08:30:56 10/28/2019 15:14:19 [id number] PABLO Sommers, [facility] [facility] [address] [place] [address] [place] [address] 05/13/2020 10:57:05 05/14/2020 11:47:45 [id number] Aydee Clarke NP , [address] [place] [address] 05/27/2020 09:04:01 05/28/2020 15:26:35 [id number] Anali Yanez D.O. [address] [place] [address] 10/28/2020 07:51:21 11/19/2020 16:22:56 [id number] Dorina Zaman RN [address] [place] [address] 1 11/18/2020 08:16:03 11/19/2020 16:14:[id number] [facility], [address] [place] [address] 11/26/2020 06:44:42 11/26/2020 12:47:20 [id number] Nikole Shocarlos . MD SEARS, [facility], [address] [place] [address] 06/03/2021 14:03:53 06/03/2021 14:47:31 [id number] Jarocho Browne MD , [address] [place] [address] 06/13/2021 08:59:47 06/13/2021 09:45:05 [id number] Aydee Clarke NP , [address] [place] [address] 1 11/03/2021 08:30:54 11/03/2021 09:02:37 [id number] Anali Yanez D.O. [address] [place] [address] 05/11/2022 09:14:18 05/11/2022 09:53:17 [id number] Aydee Clarke NP , [facility] [place] OFFICE [address] [place] [address] [place] [address] 1 11/10/2022 08:27:54 11/10/2022 09:18:34 [id number] Nikole Pandya . , [facility] [place] OFFICE [address] [place] [address] [place] [address] 1 05/10/2023 09:15:35 05/14/2023 08:33:22 [id number] Yani Villegas RN Endoscopy , [facility] [address] [place] [address] 01/02/2024 06:45:56 01/02/2024 10:51:16 [id number] Junie Parekh MD , [facility] [place] OFFICE [address] [place] [address] [place] [address] 11/02/2023 08:07:58 11/02/2023 10:18:03 [id number] Aydee Clarke NP , [facility] [place] OFFICE [address] [place] [address] [place] [address] 11/13/2023 09:46:52 11/13/2023 13:24:43 [id number] Aydee Clarke NP , [facility] OFFICE [address] [place] [address] [place] [address] 05/15/2024 08:13:22 05/15/2024 10:18:36 Health Concerns Section Related Observation LastModified by Organization Detai ls LastModified Time None Recorded Concern Status LastModified by Organization Details LastModified Time None Recorded Advance Directives Directive None Recorded Payers Encounter Date Sequence Insurance Name Policy Number Policy Padron Covered Member ID Padron Member ID Guarantor Name 11/10/2022 1 [employer] [employer] [place] 111 Timo Meng [id number] Timo Meng 05/10/2023 1 [place] 111 Timo Meng [id number] Timo Meng 11/02/2023 1 [employer] 111 Timo Meng [id number] Timo Meng 11/13/2023 1 [place] 111 Timo Meng [id number] Tmio Meng 05/15/2024 1 [facility] EMPL[employer]EE PROGRAM 111 Timo Meng [id number] Timo Meng
--- OUTSIDE RECORDS SUMMARY | 2024-10-22 15:56 | XMS_ITS | Encounter Summary ---
Author Organization [facility] Address [address] [place] [phone] Phone Care Team Providers Care [employer] Consult[employer] Architect Name Role Phone Anali Yanez DO Primary Care Provider [phone] Orin Joshi NP Primary Care Provider [phone] Encounter Details Date Type Department Care Team (Late st Contact Info) Description 02/04/2018 Procedure Pass [place] Admitting Dept - Virtual Department [address] [place] [address] Social History Tobacco Use Types Packs/Day Years [...] on filedocumented in this encounter Care Teams [employer] Relationship Specialty Start Date End Date Anali Yanez DO [address] [place] [id number] PCP - General Internal Medicine 01/31/18 11/25/20 Orin Joshi NP [address] [place] [phone] PCP - General 11/26/20 documented as of this encounter Additional Source Comments The information contained in this document represents components of the legal health record. It is not the complete legal health record.[facility]
--- OUTSIDE RECORDS SUMMARY | 2024-10-22 15:56 | XMS_ITS | Data Portability ---
Author Organization [facility], [facility] Address [address] [place] [address] Care Team Providers Care Cigar Packer And Grader Name Role Phone AYDEE CLARKE Primary Care Provider [phone] Sas Architect [facility] Night Manager [phone] [facility] Urologist Assessment Encounter Date Assessment [...] HbA1c (hemoglob in A1c), blood 2022 024 [facility], [address] [facility], [place], [address], 08/09/2023 10:57:33 Referral gastroent erologist referral - per dentist as significa nt erosion of enamel 2022 023 [facility], [address] [place], [address], 09/28/2023 12:31:18 Procedures None recorded. Surgeries None recorded. Imaging XR, ribs, unilatera l - eval for fractured ribs, s/p fall on stone wall on L side 2023 024 [facility] ([facility]), [address] , [place], [address], 11/02/2023 10:18:03 Medication Orders simvastat in 20 mg tablet 2023 024 [facility]acy #0818, [address] [place] [address], [address], 05/15/2024 08:59:23 metformin ER 500 mg tablet,ex tended release 24 hr 2023 024 [facility]/Pharmacy #0818, [address] [place], [address], 05/15/2024 08:59:23 lisinopri l 10 mg tablet 2023 024 [facility]/Pharmacy #0818, [address] [place], [address], 05/15/2024 08:59:22 ibuprofen 800 mg tablet 2023 024 [facility] [address] [place], [address], 11/13/2023 10:26:24 lisinopri l 10 mg tablet 2023 024 [facility]acy #0818, [address] [place], [address], 11/13/2023 10:26:18 ibuprofen 800 mg tablet 2023 024 [facility]acy #0818, [address] [place], [address], 11/02/2023 08:27:07 sildenafi l 50 mg tablet 2022 [facility]23 [facility] [address] [place], [address], 11/13/2023 09:54:42 Patient TargetsNo targets recorded. Patient Instructions Encounter Date Encounter Id Patient Instructions Last Modified By Organization Details Last Modified Time 11/10/2022 [id number] high cholesterol lifestyle changes pkeough Not available 11/10/2022 09:18:51 Well Visit 50 to 65: Care Instructions pkeough Not available 11/10/2022 09:18:50 11/13/2023 [id number] high blood pressure: care instructions pkeough Not available 11/13/2023 10:26:16 learning about high blood pressure pkeough Not available 11/13/2023 10:26:16 05/15/2024 [id number] high blood pressure: care instructions pkeough Not available 05/15/2024 08:59:20 learning about high blood pressure pkeough Not available 05/15/2024 08:59:20 Reason for Referral Night Manager Referral for Erosion of teeth per dentist [...] furth er confi rmati on Not Available [address], [address], 11/02/2022 11:36:14 11/03/19 23 11/02/2022 HGB A1C estimated average glucose 137.0 mg/dL Not Available [address], [address], 11/02/2022 11:36:14 11/03/19 23 11/02/2022 BASIC METAB OLIC PANEL glucose 151 mg/dL 70-100 high Not Available [address], [address], 11/02/2022 15:34:56 11/03/19 23 11/02/2022 BASIC METAB OLIC PANEL BUN 17 mg/dL 7-18 Not Available [address], [address], 11/02/2022 15:34:56 11/03/19 23 11/02/2022 BASIC METAB OLIC PANEL creatinine 1.0 mg/dL 0.8-1. 3 Not Available [address], [address], 11/02/2022 15:34:56 11/03/19 23 11/02/2022 BASIC METAB OLIC PANEL B/C 17.0 ratio Not Available [address], [address], 11/02/2022 15:34:56 11/03/19 23 11/02/2022 BASIC METAB [...] be used in pregn babak. Not Available [address], [address], 11/02/2022 15:34:56 11/03/19 23 11/02/2022 BASIC METAB OLIC PANEL sodium 138 mmol/ L 136-14 5 Not Available [address], [address], 11/02/2022 15:34:56 11/03/19 23 11/02/2022 BASIC METAB OLIC PANEL potassium 4.3 mmol/ L 3.5-5. 1 Not Available [address], [address], 11/02/2022 15:34:56 11/03/19 23 11/02/2022 BASIC METAB OLIC PANEL chloride 102 mmol/ L 96-107 Not Available [address], [address], 11/02/2022 15:34:56 11/03/19 23 11/02/2022 BASIC METAB OLIC PANEL anion gap 9.2 5.0-15 .0 Not Available [address], [address], 11/02/2022 15:34:56 11/03/19 23 11/02/2022 BASIC METAB OLIC PANEL CO2 27 mmol/ L 21-32 Not Available [address], [address], 11/02/2022 15:34:56 11/03/19 23 11/02/2022 BASIC METAB OLIC PANEL calcium 8.9 mg/dL 8.5-10 .3 Not Available [address], [address], 11/02/2022 15:34:56 11/03/1911/02/2022 LIPID PANEL cholesterol 143 mg/dL <200 mg/dl Sudhir able 200-2 39 mg/dl Borde rline High >240 mg/dl High Not Available [address], [address], 11/02/2022 15:34:57 11/03/19 23 11/02/2022 LIPID PANEL triglyceride s 317 mg/dL high <150 mg/dL Viki l 150-1 99 mg/dL Borde rline High 200-4 99 mg/dL High >500 mg/dL Very High Not Available [address], [address], 11/02/2022 15:34:57 11/03/19 23 11/02/2022 LIPID PANEL direct HDL 38 mg/dL <40 mg/dl - Major Risk for CHD >60 mg/dl - Negat berta Risk for CHD Not Available [address], [address], 11/02/2022 15:34:57 11/03/1911/02/2022 DIREC T LDL direct [...] r is not necmeaghan maisha. Not Available [address], [address], 11/02/2022 16:48:05 05/03/20 23 05/03/2023 HGB A1C [...] furth er confi rmati on Not Available [address], [address], 05/03/2023 12:05:19 05/03/2005/03/2023 HGB A1C estimated average glucose 157.1 mg/dL Not Available [address], [address], 05/03/2023 12:05:19 05/03/2005/03/2023 BASIC METAB OLIC PANEL glucose 173 mg/dL 70-100 high Not Available [address], [address], 05/03/2023 12:12:20 05/03/2005/03/2023 BASIC METAB OLIC PANEL BUN 17 mg/dL 7-18 Not Available [address], [address], 05/03/2023 12:12:20 05/03/2005/03/2023 BASIC METAB OLIC PANEL creatinine 1.0 mg/dL 0.8-1. 3 Not Available [address], [address], 05/03/2023 12:12:20 05/03/2005/03/2023 BASIC METAB OLIC PANEL B/C 17.0 ratio Not Available [address], [address], 05/03/2023 12:12:20 05/03/2005/03/2023 BASIC METAB OLIC PANEL [...] be used in pregn babak. Not Available [address], [address], 05/03/2023 12:12:20 05/03/2005/03/2023 BASIC METAB OLIC PANEL sodium 138 mmol/ L 136-14 5 Not Available [address], [address], 05/03/2023 12:12:20 05/03/2005/03/2023 BASIC METAB OLIC PANEL potassium 4.2 mmol/ L 3.5-5. 1 Not Available [address], [address], 05/03/2023 12:12:20 05/03/2005/03/2023 BASIC METAB OLIC PANEL chloride 102 mmol/ L 96-107 Not Available [address], [address], 05/03/2023 12:12:20 05/03/2005/03/2023 BASIC METAB OLIC PANEL anion gap 11.9 5.0-15 .0 Not Available [address], [address], 05/03/2023 12:12:20 05/03/2005/03/2023 BASIC METAB OLIC PANEL CO2 24 mmol/ L 21-32 Not Available [address], [address], 05/03/2023 12:12:20 05/03/20 23 05/03/2023 BASIC METAB OLIC PANEL calcium 9.0 mg/dL 8.5-10 .3 Not Available [address], [address], 05/03/2023 12:12:20 05/03/2005/03/2023 LIPID PANEL cholesterol 148 mg/dL <200 mg/dl Sudhir able 200-2 39 mg/dl Borde rline High >240 mg/dl High Not Available [address], [address], 05/03/2023 12:12:21 05/03/20 23 05/03/2023 LIPID PANEL triglyceride s 323 mg/dL high <150 mg/dL Viki l 150-1 99 mg/dL Borde rline High 200-4 99 mg/dL High >500 mg/dL Very High Not Available [address], [address], 05/03/2023 12:12:21 05/03/20 23 05/03/2023 LIPID PANEL direct HDL 42 mg/dL <40 mg/dl - Major Risk for CHD >60 mg/dl - Negat berta Risk for CHD Not Available [address], [address], 05/03/2023 12:12:21 05/03/20 23 05/03/2023 DIREC T [...] r is not jose ferrera. Not Available [address], [address], 05/03/2023 14:38:05 05/03/20 23 05/03/2023 MICRO ALBUM IN/CR EATIN INE RATIO PANEL , URINE microalbumin 8.0 mg/L 1.3-20 .0 Not Available [address], [address], 05/03/2023 15:48:25 05/03/20 23 05/03/2023 MICRO ALBUM IN/CR EATIN INE RATIO PANEL , URINE creatinine urine 139.3 mg/dL 30.0-1 25.0 high Not Available [address], [address], 05/03/2023 15:48:25 05/03/20 23 05/03/2023 MICRO ALBUM IN/CR EATIN INE RATIO PANEL , URINE microalb/cre at ratio 5.7 mg/g_ creat 0.0-29 .0 Not Available [address], [address], 05/03/2023 15:48:25 08/09/19 24 08/09/2023 BASIC METAB OLIC PANEL glucose 168 mg/dL 70-100 high Not Available [address], [address], 08/09/2023 10:55:05 08/09/19 24 08/09/2023 BASIC METAB OLIC PANEL BUN 17 mg/dL 7-18 Not Available [address], [address], 08/09/2023 10:55:05 08/09/19 24 08/09/2023 BASIC METAB OLIC PANEL creatinine 1.1 mg/dL 0.8-1. 3 Not Available [address], [address], 08/09/2023 10:55:05 08/09/19 24 08/09/2023 BASIC METAB OLIC PANEL B/C 15.5 ratio Not Available [address], [address], 08/09/2023 10:55:05 08/09/19 24 08/09/2023 BASIC METAB [...] be used in pregn babak. Not Available [address], [address], 08/09/2023 10:55:05 08/09/19 24 08/09/2023 BASIC METAB OLIC PANEL sodium 139 mmol/ L 136-14 5 Not Available [address], [address], 08/09/2023 10:55:05 08/09/19 24 08/09/2023 BASIC METAB OLIC PANEL potassium 4.3 mmol/ L 3.5-5. 1 Not Available [address], [address], 08/09/2023 10:55:05 08/09/19 24 08/09/2023 BASIC METAB OLIC PANEL chloride 102 mmol/ L 96-107 Not Available [address], [address], 08/09/2023 10:55:05 08/09/19 24 08/09/2023 BASIC METAB OLIC PANEL anion gap 10.8 5.0-15 .0 Not Available [address], [address], 08/09/2023 10:55:05 08/09/19 24 08/09/2023 BASIC METAB OLIC PANEL CO2 26 mmol/ L 21-32 Not Available [address], [address], 08/09/2023 10:55:05 08/09/19 24 08/09/2023 BASIC METAB OLIC PANEL calcium 8.9 mg/dL 8.5-10 .3 Not Available [address], [address], 08/09/2023 10:55:05 08/09/19 24 08/09/2023 HGB A1C [...] furth er confi rmati on Not Available [address], [address], 08/09/2023 10:57:32 08/09/19 24 08/09/2023 HGB A1C estimated average glucose 157.1 mg/dL Not Available [address], [address], 08/09/2023 10:57:32 10/25/19 24 10/25/2023 HGB A1C [...] furth er confi rmati on Not Available [address], [address], 10/25/2023 11:15:39 10/25/19 24 10/25/2023 HGB A1C estimated average glucose 139.9 mg/dL Not Available [address], [address], 10/25/2023 11:15:39 10/25/19 24 10/25/2023 BASIC METAB OLIC PANEL glucose 149 mg/dL 70-100 high Not Available [address], [address], 10/25/2023 16:27:42 10/25/19 24 10/25/2023 BASIC METAB OLIC PANEL BUN 21 mg/dL 7-18 high Not Available [address], [address], 10/25/2023 16:27:42 10/25/19 24 10/25/2023 BASIC METAB OLIC PANEL creatinine 1.0 mg/dL 0.8-1. 3 Not Available [address], [address], 10/25/2023 16:27:42 10/25/19 24 10/25/2023 BASIC METAB OLIC PANEL B/C 21.0 ratio Not Available [address], [address], 10/25/2023 16:27:42 10/25/19 24 10/25/2023 BASIC METAB [...] be used in pregn babak. Not Available [address], [address], 10/25/2023 16:27:42 10/25/19 24 10/25/2023 BASIC METAB OLIC PANEL sodium 139 mmol/ L 136-14 5 Not Available [address], [address], 10/25/2023 16:27:42 10/25/19 24 10/25/2023 BASIC METAB OLIC PANEL potassium 4.4 mmol/ L 3.5-5. 1 Not Available [address], [address], 10/25/2023 16:27:42 10/25/19 24 10/25/2023 BASIC METAB OLIC PANEL chloride 101 mmol/ L 96-107 Not Available [address], [address], 10/25/2023 16:27:42 10/25/19 24 10/25/2023 BASIC METAB OLIC PANEL anion gap 12.9 5.0-15 .0 Not Available [address], [address], 10/25/2023 16:27:42 10/25/19 24 10/25/2023 BASIC METAB OLIC PANEL CO2 25 mmol/ L 21-32 Not Available [address], [address], 10/25/2023 16:27:42 10/25/19 24 10/25/2023 BASIC METAB OLIC PANEL calcium 9.1 mg/dL 8.5-10 .3 Not Available [address], [address], 10/25/2023 16:27:42 10/25/19 24 10/25/2023 LIPID PANEL cholesterol 113 mg/dL <200 mg/dl Sudhir able 200-2 39 mg/dl Borde rline High >240 mg/dl High Not Available [address], [address], 10/25/2023 16:27:43 10/25/19 24 10/25/2023 LIPID PANEL triglyceride s 205 mg/dL <150 mg/dL Viki l 150-1 99 mg/dL Borde rline High 200-4 99 mg/dL High >500 mg/dL Very High Not Available [address], [address], 10/25/2023 16:27:43 10/25/19 24 10/25/2023 LIPID PANEL direct HDL 42 mg/dL <40 mg/dl - Major Risk for CHD >60 mg/dl - Negat berta Risk for CHD Not Available [address], [address], 10/25/2023 16:27:43 10/25/19 24 10/25/2023 LDL - [...] r is not terrimeaghan maisha. Not Available [address], [address], 10/25/2023 16:27:44 10/25/19 24 10/26/2023 IMMUN OGLOB ULIN A immunoglobul in A 125 mg/dL 47-310 normal Not Available [facility] [address], [address], 10/26/2023 16:02:40 10/25/19 24 10/26/2023 TISSU E TRANS GLUTA SANDRINE E AB, IGA tissue transglutami nase Ab, IgA <1.0 U/mL normal Value Inter preta tion ----- ----- ----- ---- <15.0 Antib tobias not detec audelia > or = 15.0 Antib tobias detec audelia Not Available [facility] [address], [address], 10/26/2023 16:02:41 01/02/20 24 01/02/2024 POC GLU POC glu 179 70 - 100 high Not Available [facility] [address] [place] [address], [address], 01/04/2024 09:10:15 05/08/20 24 05/08/2024 HGB A1C [...] furth er confi rmati on Not Available [address], [address], 05/08/2024 11:51:31 05/08/20 24 05/08/2024 HGB A1C estimated average glucose 151.3 mg/dL Not Available [address], [address], 05/08/2024 11:51:31 05/08/20 24 05/08/2024 MICRO ALBUM IN/CR EATIN INE RATIO PANEL , URINE microalbumin 21.0 mg/L 1.3-20 .0 high Not Available [address], [address], 05/08/2024 14:38:50 05/08/2005/08/2024 MICRO ALBUM IN/CR EATIN INE RATIO PANEL , URINE creatinine urine 121.7 mg/dL 30.0-1 25.0 Not Available [address], [address], 05/08/2024 14:38:50 05/08/20 24 05/08/2024 MICRO ALBUM IN/CR EATIN INE RATIO PANEL , URINE microalb/cre at ratio 17.3 mg/g_ creat 0.0-29 .0 Not Available [address], [address], 05/08/2024 14:38:50 05/08/20 24 05/09/2024 BASIC METAB OLIC PANEL glucose 182 mg/dL 70-100 high Not Available [address], [address], 05/09/2024 15:14:00 05/08/20 24 05/09/2024 BASIC METAB OLIC PANEL BUN 15 mg/dL 7-18 Not Available [address], [address], 05/09/2024 15:14:00 05/08/20 24 05/09/2024 BASIC METAB OLIC PANEL creatinine 1.1 mg/dL 0.8-1. 3 Not Available [address], [address], 05/09/2024 15:14:00 05/08/20 24 05/09/2024 BASIC METAB OLIC PANEL B/C 13.6 ratio Not Available [address], [address], 05/09/2024 15:14:00 05/08/20 24 05/09/2024 BASIC METAB [...] be used in pregn babak. Not Available [address], [address], 05/09/2024 15:14:00 05/08/20 24 05/09/2024 BASIC METAB OLIC PANEL sodium 140 mmol/ L 136-14 5 Not Available [address], [address], 05/09/2024 15:14:00 05/08/20 24 05/09/2024 BASIC METAB OLIC PANEL potassium 4.9 mmol/ L 3.5-5. 1 Not Available [address], [address], 05/09/2024 15:14:00 05/08/20 24 05/09/2024 BASIC METAB OLIC PANEL chloride 101 mmol/ L 96-107 Not Available [address], [address], 05/09/2024 15:14:00 05/08/20 24 05/09/2024 BASIC METAB OLIC PANEL anion gap 9.0 5.0-15 .0 Not Available [address], [address], 05/09/2024 15:14:00 05/08/20 24 05/09/2024 BASIC METAB OLIC PANEL CO2 30 mmol/ L 21-32 Not Available [address], [address], 05/09/2024 15:14:00 05/08/20 24 05/09/2024 BASIC METAB OLIC PANEL calcium 9.5 mg/dL 8.5-10 .3 Not Available [address], [address], 05/09/2024 15:14:00 11/02/19 24 11/02/2023 XR, ribs, unila teral CLINIC [facility] HISTOR Y: Left-s ided chest wall pain after a fall. Histor y of old fractu res. TECHNI QUE: At least 3 views of the left ribs are obtain ed. COMPAR SANDEE: 2020, 017 FINDIN GS: There are distribution engineer ior and latera l fractu res of the left fourth , fifth, sixth ribs. There are fractu re along the latera l aspect of the left sevent h, eighth and ninth ribs. There are fractu re of along the distribution engineer ior and beata latera l aspect s [...] Vinh Thurston ana: Heladio valiente Patrice ms [facility] [address] , [place], [address], 11/13/2023 10:06:59 Result Notes None recorded. Problems Name Problem SNOMED Code Status Onset Date Resolution Date Notes Provider Name and Address Organization Details Recorded Time Benign essential hypertensi on 4774151 Active Not Available [facility] 2 09:32:40 Neuropathy due to diabetes mellitus 768538222 Active Not Available [facility] 2 09:32:40 Alcohol dependence 61557384 Active 2015 Not Available [facility] 2 09:32:40 Amputated toe 535802608 Active 2018 Not Available [facility] 2 09:32:40 Obesity 368651223 Active 2021 Aydee Clarke NP [address] [place] [address], [address] , [facility] 2 09:06:14 Basal cell carcinoma of skin 114764996 Active 2021 Bina Chopra NP [address] [place] [address], [address] , [facility] 2 08:37:19 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 598160386 Active 2021 Aydee Clarke NP [address] [place], [address] , [facility] 2 10:05:16 Mixed hyperlipid emia 083557105 Active 2006 Not Available [facility] 2 09:32:40 Injury of finger 51200854 Completed 200003/01/2012 Aydee Clarke NP [address] [place], [address] , [facility] 6 10:22:10 Testicular hypofuncti on 187346606 Completed 200603/01/2012 Aydee Clarke NP [address] [place] [address], [address] , [facility] 6 10:22:10 Essential hypertensi on 75262825 Completed 200003/01/2012 Aydee Clarke NP [address] [place] [address], [address] , [facility] 6 10:22:10 Diabetes mellitus 87993685 Completed 02/26/2014 Aydee Clarke NP [address] [place] [address], [address] , [facility] 6 10:22:10 Type 2 diabetes mellitus without complicati on 911665780 Active 2006 Not Available [facility] 2 09:32:40 Insect bite to trunk - nonvenomou s 231628174 Completed 03/01/2012 Aydee Clarke NP [address] [place] [address], [address] , [facility] 6 10:22:10 Benign essential hypertensi on 0405487 Completed 200603/01/2012 Aydee Clarke NP [address] [place] [address], [address] , [facility] 6 10:22:10 Atrial fibrillati on 40509634 Completed 03/01/2012 Aydee Clarke NP [address] [place] [address], [address] , [facility] 6 10:22:10 Morbid obesity 783753485 Completed 200603/01/2012 Aydee Clarke NP [address] [place] [address], [address] , [facility] 6 10:22:10 Open angle with borderline findings Active 2006 Not Available [facility] 2 09:32:40 Disorder of peripheral autonomic nervous system 847087176 Completed 03/01/2012 Aydee Clarke NP [address] [place] [address], [address] , [facility] 6 10:22:10 Disorder of nervous system due to type 2 diabetes mellitus 142850577 Completed 200603/01/2012 Aydee Clarke NP [address] [place] [address], [address] , [facility] 6 10:22:10 Malaise and fatigue 780852029 Completed 200603/01/2012 Aydee Clarke NP [address] [place] [address], [address] , [facility] 6 10:22:10 Problem Notes None recorded. Procedures Surgical History Date Name Laterality Status Provider Name and Address Organization Details Recorded Time 2 Obesity counseling completed Aydee Clarke NP [address] [place] [address], [phone], [facility] 11/03/2021 09:05:56 2 prevention-card iovascular risk reduction counseling completed Aydee Clarke NP [address] [place] [address], [address], [facility] 11/03/2021 09:05:36 1 Katiana - Colonoscopy completed Mynor Saab MD [address] [place] [address], [address], [facility] 11/26/2020 07:46:53 1 prevention-card iovascular risk reduction counseling completed Esther Melendez [facility] 10/28/2020 07:54:46 1 prevention-vianey al alcohol misuse screening completed Esther Melendez [facility] 10/28/2020 07:54:46 0 prevention-card iovascular risk reduction counseling completed Esther Melendez [facility] 05/13/2020 10:57:32 0 prevention-vianey al alcohol misuse screening completed Esther Melendez [facility] 05/13/2020 10:57:32 5 Destruction of skin lesion completed Montana Foreman III, MD [address] [place] [address], [address], [facility] 01/05/2015 10:59:27 Imaging Results Imaging Date Name Status LastModified by Organiz ation Details LastModified Time 11/02/2023 XR, ribs, unilateral completed [facility] [address], [place], [address], 11/13/2023 10:06:59 Procedure Notes None recorded. Medical [...] 02/09 completed pt as stopped taking this il 02-09-17 KB Not Available Not Available Not [...] /min 97 % 97 % 30 kg/m2 15498.7 7 g 116 mm[Hg] 84 mm[Hg] [facility] 3 08:51:13 Date Recorded Body height Body mass index (BMI) Body weight Heart rate Systolic blood pressure Diastolic blood pressure Provider Name and Address Organization Details Last Updated DateTime 3 168.28 cm 30.4 kg/m2 04165.5 5 g 81 /min 114 mm[Hg] 73 mm[Hg] [facility] 3 09:28:45 Date Recorded Body height Body mass index (BMI) Body weight Heart rate Oxygen saturation Oxygen saturation in Arterial blood by Pulse oximetry Systolic blood pressure Diastolic blood pressure Provider Name and Address Organization Details Last Updated DateTime 4 168.28 cm 31.8 kg/m2 47710.6 9 g 105 /min 99 % 99 % 150 mm[Hg] 82 mm[Hg] Samantha Galindo CMA [facility] 4 08:15:04 Date Recorded Body height Body mass index (BMI) Body weight Oxygen saturation Oxygen saturation in Arterial blood by Pulse oximetry Heart rate Systolic blood pressure Diastolic blood pressure Systolic blood pressure Diastolic blood pressure Provider Name and Address Organization Details Last Updated DateTime 4 168.28 cm 31.1 kg/m2 61975.9 2 g 100 % 100 % 88 /min 125 mm[Hg] 84 mm[Hg] 133 mm[Hg] 74 mm[Hg] [facility] 4 11:24:46 Date Recorded Body height Body mass index (BMI) Body weight Oxygen saturation Oxygen saturation in Arterial blood by Pulse oximetry Heart rate Systolic blood pressure Diastolic blood pressure Provider Name and Address Organization Details Last Updated DateTime 4 168.28 cm 30.1 kg/m2 72797.3 7 g 97 % 97 % 77 /min 104 mm[Hg] 62 mm[Hg] Adrián Shahkelomar [facility] 4 08:26:48 Social History Question Answer Notes LastModified by Organizat ion Details LastModified Time Tobacco Smoking Status Never Smoker checked 05-15-24 Adrián Worthington Ben [facility] 05/15/2024 08:27:56 What Is Your Level Of Alcohol Consumption? Moderate 5 Days A Week- 4 Shot Glasses A Day Vodka [email or web address] Information not available 05/15/2024 Do You Wear A Helmet When Biking? Yes [email or web address] Information not available 06/24/2015 What Is Your Level Of Caffeine Consumption? None [email or web address] Information not available 05/13/2020 How Much Tobacco Do You Chew? None Information not available 12/31/2012 What Type Of Diet Are You Following? REGULAR Information not available 06/24/2015 Which Illicit Or Recreational Drugs Have You Used? No Denies [email or web address] Information not available 01/15/2018 Do You Or Have You Ever Used E-cigarettes Or Vape? 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 0 Information not available 12/31/2012 Are There Any Guns Present In Your Home? No [email or web address] Information not available 06/24/2015 Live Alone Or With Others? With Others [email or web address] Information not available 06/08/2011 Patient Has Health Care Proxy Signed And In Chart Yes [email or web address] Information not available 11/14/2022 Marital Status [email or web address] Informatio n not available 03/01/2012 Mosquito Repellent Used Routinely Yes Information not available 01/15/2018 What Was The Date Of Your Most Recent Tobacco Screening? 05/11/2022 05/11/22 CJ [email or web address] Information not available 05/11/2022 How Many Children Do You Have? 0 [email or web address] Information not available 06/08/2011 Seat Belts Used Routinely Yes [email or web address] Information not available 06/24/2015 Smoke Alarm In Home Yes [email or web address] Information not available 06/24/2015 Do You Or Have You Ever Used Smokeless Tobacco? Never Used Smokeless Tobacco 10/28/2019 TG [email or web address] Information not available 10/28/2019 How Much Tobacco Do You Smoke? No 05/11/22 CJ [email or web address] Information not available 05/11/2022 What Types Of Sporting Activities Do You Participate In? No Information not available 01/15/2018 General Stress Level Low [email or web address] Information not available 06/24/2015 Do You Use Sunscreen Routinely? Yes [email or web address] Information not available 06/24/2015 How Many Years Have You Smoked Tobacco? 0 [email or web address] Information not available 10/28/2019 Sex: Male Functional [...] Time Tdap 007 completed Not Available [facility] 06/07/2011 05:21:29 Tdap 007 completed Not Available [facility] 06/07/2011 05:21:29 pneumococcal polysaccharide PPV23 009 completed Not Available [facility] 08/09/2019 02:38:00 Td (adult), 2 Lf tetanus toxoid, preservative free, adsorbed 018 completed Not Available [facility] 08/09/2019 02:22:36 Influenza, split virus, quadrivalent, PF 022 cancelled patient objection Anali Yanez D.O. [address] [place] [address], [phone], [facility] 05/11/2022 11:18:26 Influenza, split virus, quadrivalent, PF 023 cancelled patient objection Nikole Pandya. [address] [place], [address], [facility] 05/13/2023 15:47:02 COVID-19, mRNA, LNP-S, PF, 30 mcg/0.3 mL dose 021 completed Esther Melendez CMA null, [facility] 06/03/2021 14:14:02 COVID-19, mRNA, LNP-S, PF, 30 mcg/0.3 mL dose 021 completed Esther Melendez CMA null, [facility] 06/03/2021 14:14:12 COVID-19, mRNA, LNP-S, PF, 100 mcg/0.5mL dose or 50 mcg/0.25mL dose 022 completed JUAN Alvarez [facility] 08/22/2021 14:21:46 Past Encounters Encounter ID Performer Location Encounter Start Date Encounter Closed Date Diagnosis/Indication Diagnosis SNOMED-CT Code Diagnosis ICD10 Code Diagnosis Note [id number] [facility] OFF[facility] [address] [place]ess [place] [id number] 08/28/2000 11:45:00 08/12/2008 02:02:29 [id number] [facility] OFF[facility] [address] [place]ess [place] [id number] 1 09/07/2006 09:25:16 09/07/2006 13:17:47 [id number] [facility] - [address] [place] [address] 09/27/2006 09:47:41 09/27/2006 09:47:45 [id number] [facility], [address] [place] [address] 09/27/2006 10:01:46 09/27/2006 11:52:26 [id number] [facility], [address] JU[place] [address] 10/15/2006 14:29:42 10/15/2006 17:10:27 [id number] [facility] OFF[facility] [address] [place] [id number] 10/17/2006 08:03:38 10/17/2006 09:08:25 [id number] [facility] [address] [place] [address] 01/09/2007 12:05:24 01/09/2007 14:30:41 [id number] [facility] - [address] [place] [address] 01/10/2007 07:28:27 01/10/2007 07:28:32 [id number] [facility] - [address] [place] [address] 01/11/2007 08:57:27 01/11/2007 08:57:35 [id number] [facility] OFF[facility] [address] [place] [id number] 02/01/2007 08:12:35 02/01/2007 10:48:02 [id number] [facility] - [address] [place] [address] 06/11/2007 07:56:03 06/11/2007 07:56:12 [id number] [facility]ICE [address] [place] [address] 06/25/2007 09:01:34 08/12/2008 02:02:29 [id number] Podiatry, [facility] [place] [address] 07/09/2007 09:05:27 07/10/2007 09:23:03 [id number] LAB - [facility] [place] [address] 1 11/19/2007 10:32:30 11/19/2007 10:32:45 [id number] [facility], OFFICE [address] [place] [address] 1 05/12/2009 10:30:12 05/13/2009 08:35:11 [id number] [facility], [place]ICE [address] [place] [address] 1 06/09/2009 14:41:02 06/10/2009 09:44:59 [id number] [facility]ocr[facility], [address] [place] [address] 06/23/2009 08:26:26 06/24/2009 09:26:23 [id number] Endocrino logy, [facility] [place] [address] 1 08/19/2009 09:27:35 08/19/2009 14:10:39 [id number] Endocrino logy, [facility] [place] [address] 11/18/2009 09:29:15 11/18/2009 10:41:01 [id number] [facility] OFF[facility] [address] [place] [address] [place] [address] 09/20/2010 12:01:55 09/20/2010 16:23:51 [id number] [facility] OFFICE [address] [place] [address] [place] [address] 06/21/2011 09:53:16 06/21/2011 10:13:02 [id number] [facility], OFFICE [address] [place] [address] [place] [address] 1 01/23/2012 08:10:14 01/23/2012 09:04:59 [id number] [facility], [facility] [address] [place] [address] 03/01/2012 08:33:47 03/01/2012 09:08:14 [id number] Dorina SEARS [facility], OFFICE [address] [place] [address] 12/31/2012 11:03:27 01/01/2013 07:35:53 [id number] Jessica [place] moore [facility], OFFICE [address] [place] [address] 1 05/19/2013 09:39:48 05/19/2013 09:56:44 Nonvenomous insect bite of multiple sites [id number] Amiray Ledesma [facility], OFFICE [address] [place] [address] 08/28/2013 15:02:43 08/28/2013 15:25:22 Benign essential hypertension 2827615 continue to work on diet ,exercisea nd lowering salt intake as discussed Mixed hyperlipidemia 434963303 continue to work on diet and exercise as discussed Adult heal th examination [id number] see Risk Assessment and Lifestyle Change Counseling section above Counseling [id number] Type 2 nora betes mellitus without complication 112661776 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 679333934 Disorder o f nervous system due to type 2 diabetes mellitus 090477099 [id number] Rosi Eric [facility], OFFICE [address] [place] [address] 02/26/2014 09:23:19 02/26/2014 09:55:23 Benign essential hypertension 6392332 continue to work on diet ,exercisea nd lowering salt intake as discussed Mixed hyperlipidemia 281090135 continue to work on diet and exercise as discussed Disorder o f nervous system due to type 2 diabetes mellitus 298135801 Foot neuropathy Neoplasm of skin 126100406 [id number] Montana Foreman III, MD [facility], OFFICE [address] [place] [address] 01/05/2015 10:38:43 01/05/2015 10:57:32 Benign essential hypertension 1017093 continue to work on diet, exercise, and lowering salt intake as discussed Mixed hyperlipidemia 061346704 continue to work on diet and exercise as discussed Cholestero l is at goal Type 2 nora betes mellitus without complication 895612889 Actinic keratosis 070486518 Right shoulder x 2 [id number] Pilar Church MA [facility], OFFICE [address] [place] [address] 02/23/2015 09:02:42 02/23/2015 09:28:05 Paronychia of toe 793533747 Diabetes mellitus 33628631 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 667479927 [id number] PABLO Sommers, [facility], OFFICE [address] [place] [address] 02/25/2015 09:28:28 02/25/2015 10:08:25 Paronychia of toe 135795112 Diabetes mellitus 26048796 Cellulitis of toe 47360366 [id number] JUAN Lewis, [facility], OFFICE [address] [place] [address] 02/26/2015 09:13:35 02/26/2015 09:42:40 Cellulitis of toe 44717991 Paronychia of toe 620870384 Diabetes mellitus 24139028 [id number] PABLO Sommers, [facility] [address] [place] [address] 03/01/2015 09:16:53 03/01/2015 09:27:47 Cellulitis of toe 64174213 resolving will finish remaining 3 days of Bactrim DS bid. Again reviewed sxs of infection and will rto if they reoccur. [id number] PABLO Sommers, [facility], [place] [address] [place] [address] 06/24/2015 08:26:01 06/24/2015 09:06:08 Type 2 diabetes mellitus without complication 608911275 E11.9 A1C not at goal of <7.0 Up significan tly from December will increase metformin ER to 1000 mg bid will decrease ETOH, sugar drinks repeat labs 3 months- OV Mixed hyperlipidemia 267 461464 E78.2 Trigs are not at goal Will c/w omega fish oil 4000 mg qd will decrease ETOH and sugary drinks Continue to work on diet and exercise as discussed repeat labs 3 months and f/u OV Benign ess ential hypertension 0834598 I10 Blood pressure at goal . continue to work on diet, exercise, and lowering salt intake as discussed Adult [facility] th examination 243673338 Z00.00 see Risk Assessment and Lifestyle Change Counseling section above HM: Labs UTD Declines flu shot Counseling 737703026 Z71 .9 Alcohol dependence 93967 003 F10.20 discussed reducing ETOH intake discussed impact on blood sugar and triglyceri vi Shoulder pain 26157608 M 25.512 ? impingemen t will try 3-5 days of NSAIDs, alternate heat and ice will call if he reconsider PT Neuropathy due to diabetes mellitus 699617651 E11.40 stable discussed importance of checking feet regularly. [id number] Marcie Washington , [facility], OFFICE [address] [place] [address] 12/01/2015 09:44:27 12/01/2015 10:33:57 Type 2 diabetes mellitus without complication 403893581 E11.9 A1C at goal of <7.0 at 5.0 will c/w increase metformin 1000 mg bid c/w glyburide 2.5 mg qd discussed working on diet, ETOH reduction will repeat in 3 months to check for stability OV 6 months Mixed hyperlipidemia 267 110393 E78.2 Trigs much improved down from 699 to 158! great job Will c/w omega fish oil 4000 mg qd will decrease ETOH and sugary drinks Continue to work on diet and exercise as discussed repeat labs 3 months and f/u OV 6 months Benign ess ential hypertension 1691328 I10 Blood pressure at goal . 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 Adjustment disorder 1722 6007 F43.23 dealing with loss of 32 brother (OD) as well taking care of Mom [id number] Jarocho Browne MD , [facility], OFFICE [address] [place] [address] 01/25/2016 09:18:19 01/25/2016 10:06:23 Infection of toe 912529959 L08.9 in diabetic with neuropathy i informed him that this was a serious infection for him and that we must be observant augmentin for 12 days.he will rto for non response after 48 hrs, or for progressio n or onset fever Neuropathy due to diabetes mellitus 607402586 E11.40 [id number] Aydee Clarke NP , [facility], OFFICE [address] [place] [address] 06/28/2016 09:35:15 06/29/2016 09:39:46 Benign essential hypertension 1211819 I10 BP at goalc/w meds Neuropathy due to diabetes mellitus 328178593 E11.40 abn but stable discussed importance of checking feet regularly. Mixed hyperlipidemia 267 168121 E78.2 Trigs up from 158 to 388will c/w fish oildiscuss ed importance of ETOH reduction Type 2 nora betes mellitus without complication 866581404 E11.9 A1C very good at 5.7will get meter d/t ? of low blood sugarsIf getting lows discussed potentiall y reducing glyburideR F on med today Adult heal th examination 969861344 Z00.00 see Risk Assessment and Lifestyle Change Counseling section aboveHM: declines flu shot Counseling 273310280 Z71 .9 Alcohol dependence 72721 003 F10.20 discussed reducing ETOH intake- has not reduced discussed impact on blood sugar and triglyceri vi lhoping new job (no longer at [employer]) will help reduce [id number] Bina Chopra NP , [facility], [address]ICE [address] [place] [address] 10/10/2016 08:00:49 10/12/2016 15:46:30 Injury of ribs 701623336 S29.9XXA Alcohol dependence 84616 003 F10.20 Type 2 nora betes mellitus without complication 023407301 E11.9 [id number] Aydee Clarke NP , [facility], [address] [place] [address] 01/09/2017 07:57:33 01/10/2017 09:04:13 Benign essential hypertension 9859062 I10 Blood pressure at goal of <140/90c/w lisinopril BMP utd wnl Mixed hyperlipidemia 267 604123 E78.2 LDL at goal of <100c/w simvastati ncontinue to work on diet and exercise as discussed Type 2 nora betes mellitus without complication 145631817 E11.9 A1C 5.0 with Goal <6.5doing well with more activity d/t jobno med changesmay consider reducing if c/w low A1Crto 6 months for PHA Neuropathy due to diabetes mellitus 881336179 E11.40 abn but stable discussed importance of checking feet regularly. Alcohol dependence 74911 003 F10.20 has reduced amount of ETOHonly on weekends and occasional during week Obesity 251499139 E66.9 BMI 30has lost weight- 8 lbs since Junec/ w regular activity [id number] Anali Yanez D.O. 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 to d/c glyburide and CUT DOWN metformin to 1000 mg once dailywill recheck HbA1c in Jun [id number] Lety Matthew , [facility], [address] [place] [address] 01/15/2018 10:28:34 01/15/2018 11:35:54 Type 2 diabetes mellitus without complication 460196308 E11.9 A1C 5.9 with Goal <6.5doing well with more activity d/t jobno med changesmay consider reducing if c/w low A1Crto 6 months for PHA Alcohol dependence 88998 003 F10.20 stable with slight decrease per pt3-4 drinks 5 x week Benign ess ential hypertension 9218567 I10 Blood pressure at goal of <140/90c/w lisinopril BMP utd wnl Neuropathy due to diabetes mellitus 208817240 E11.40 abn but stable discussed importance of checking feet regularly. Mixed hyperlipidemia 267 713121 E78.2 LDL at goal of <100c/w simvastati ncontinue to work on diet and exercise as discussed Active or passive immunization 892595059 Z23 Diabetic foot ulcer 3710 95985 E11.40 R foot 2nd toe with cellulitis will get xrayget bactrim DS bid x [address] Wang for wound care. [id number] Mitesh Cheng DPM Podiatry, [address] [place] [address] 01/30/2018 11:02:26 01/30/2018 14:26:05 Acute osteomyelitis of phalanx of toe 343687454 M86.179 Reviewed right foot xray notable for [...] post op day 0. Pain in toe 794655299 M7 9.674 Ulcer of toe 295225765 L 97.421 [id number] Anali Yanez D.O. , [facility], OFFICE [address] [place] [address] 01/30/2018 15:50:18 01/30/2018 18:24:23 Pre-surgery evaluation 507103045 Z01.818 ekg wnlThe patient is a low risk for perioperat berta cardiovasc ular complicati ons, and may proceed with surgery. Acute oste omyelitis of phalanx of toe 217653903 M86.179 R 2nd toe Benign ess ential hypertension 5918046 I10 Blood pressure at goal of <140/90c/w lisinopril BMP utd wnl Alcohol dependence 85025 003 F10.20 stable with slight decrease per pt3-4 drinks 5 x week [id number] Mitesh Cheng DPM Podiatry, [address] [address] 02/12/2018 10:26:41 02/12/2018 11:12:01 Acute osteomyelitis of phalanx of toe 533069413 M86.179 Reviewed right foot xray notable for erosions of distal aspect of distal phalanx s/p partial amputation of toe. Rx for augmentin sent to pharmacy for 10 day course. Dressing changed. Pain in toe 281775762 M7 9.674 will remove sutures in 1 week. [id number] Mitesh Cheng DPM Podiatry, [address] [address] 02/19/2018 08:51:40 02/19/2018 09:26:45 Acute osteomyelitis of phalanx of toe 813238500 M86.179 Reviewed right foot xray notable for erosions of distal aspect of distal phalanx s/p partial amputation of toe. Pain in toe 790176791 M7 9.674 Sutures removed today. Scab overlying incision removed and site bleeding area identified . Area was cleansed then new dressing was applied to the toe. Pt instructed to take abx to completion . Also to keep toe covered with gauze after daily dressing changes until area is healed up. RTC 2 weeks to re-eval. Ok to return to work tomorrow. [id number] Mitesh Cheng DPM Podiatry, [address] [address] 03/05/2018 08:38:01 03/07/2018 14:19:36 Acute osteomyelitis of phalanx of toe 954002817 M86.179 Reviewed right foot xray notable for erosions of distal aspect of distal phalanx s/p partial amputation of toe. Resolved, patient with clean margins. Pain in toe 533607531 M7 9.674 Right 2nd toe wound all healed up now. Pt ok to get toe wet. Counceled on need for diabetic shoes with custom insoles, as he will need wide width and extra depth shoe to accomodate toe deformitie s. RTC 3 months to re-eval. [id number] Mitesh Cheng DPM Podiatry, [address] [address] 05/07/2018 09:13:31 05/07/2018 09:50:36 Pain in toe 210489571 M79.674 Counseled on need for diabetic shoes with custom insoles, as he will need wide width and extra depth shoe to accomodate toe deformitie s. Orthotics agreement form was completed and signed today. Pt given a copy. We will check with her insurance about coverage. Patient is aware of cost. Cellulitis of toe 948130 04 L03.031 Ulcer of toe 185314210 L 97.509 Verbal consent was obtained. Right [...] in counseling and coordinati on of care. [id number] Mitesh Cheng DPM Podiatry, [address] [address] 05/21/2018 08:45:10 05/21/2018 16:20:21 Pain in toe 100727514 M79.674 Counseled on need for diabetic shoes [...] The scanned images were then sent to [facility] for quita rodriguez Specificat ions: full length, 45 jeff, flexible, cute wide, toe filler for right 2nd toe amputation .I spent 15 mins face to face with patient, more 50% spent in counseling and coordinati on of care. Cellulitis of toe 505084 04 L03.031 resolved Ulcer of toe 939386122 L 97.509 Verbal consent was obtained. Right [...] in counseling and coordinati on of care. [id number] Mitesh Cheng DPM Podiatry, [address] [address] 07/09/2018 09:09:03 07/10/2018 08:20:30 Pain in toe 929510309 M79.674 Pt was informed that breaking into fulltime wear of custom made functional foot orthotic devices should occur over a period of 10 to 14 days. 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 Cellulitis of toe 576213 04 L03.031 resolved Ulcer of toe 953506261 L 97.509 Verbal consent was obtained. Right 4th toe prepped and sterile instrument ation used to unroof blister draining serous drainage. Wound was dressed wtih betadine and dsd. Pt was given instructio ns to dress it accordingl y each day. Rx for abx sent to pharmacy. RTC 2 weeks. Not to get foot wet. [id number] Aydee Clarke NP , [facility] OFFICE [address] [place] [address] 09/06/2018 14:25:20 09/06/2018 15:02:23 Adult health examination 686551002 Z00.00 see Risk Assessment and Lifestyle Change Counseling section aboveHM: labs utdcolonos copy due Counseling 652946799 Z71 .9 Depression screening 171 578166 Z13.89 1 out of 27depressi on screening tool administer ed, entered into emr, scored and discussed, time greater than 7.5 minutes Mixed hyperlipidemia 267 749131 E78.2 LDL at goal of <100c/w simvastati ncontinue to work on diet and exercise as discussed Benign ess ential hypertension 9142016 I10 BP at goal c/w lisinopril continue to work on diet, exercise, and lowering salt intake as discussed Type 2 nora betes mellitus without complication 799182254 E11.9 A1C 5.7 with Goal <6.5still high fasting bs at 157advised to reduce ETOH particular ly shots doing well with more activity d/t jobno med changesmay consider reducing if c/w low A1Crto 6 months for PHA Alcohol dependence 71831 003 F10.20 3-4 everyday after workis doing shotsadvis ed to reduce- pt agrees Neuropathy due to diabetes mellitus 625245979 E11.40 abn but stable discussed importance of checking feet regularly. Screening for malignant neoplasm of colon 930145303 Z12.11 Referral for a DIRECT booked colonoscop y. This patient is a healthy ASA Class 1 or 2 patient (only mild systemic disease), or a STABLE, well controlled insulin dependent diabetic. They do not have serious cardiac disease ie MA/angiopl asty within 1 year, symptomati c CHF; renal failure with CKD 4 or 5; take Coumadin, Plavix, Aggrenox, etc. Amputated toe 334455590 Z89.429 R 2nd toecheck feet daily [id number] Aydee Clarke NP , [facility] OFFICE [address] [place] [address] 03/10/2019 15:51:01 03/10/2019 16:23:56 Mixed hyperlipidemia 476183600 E78.2 LDL at goal of <100c/w simvastati ncontinue to work on diet and exercise as discussed Screening for malignant neoplasm of colon 273143492 Z12.11 Referral for a DIRECT booked colonoscop y. This patient is a healthy ASA Class 1 or 2 patient (only mild systemic disease), or a STABLE, well controlled insulin dependent diabetic. They do not have serious cardiac disease ie MA/angiopl asty within 1 year, symptomati c CHF; renal failure with CKD 4 or 5; take Coumadin, Plavix, Aggrenox, etc. Neuropathy due to diabetes mellitus 149801715 E11.40 abn but stable discussed importance of checking feet regularly. no open toe shoesneed to protect feet Amputated toe 040155529 Z89.429 R 2nd toecheck feet daily Benign ess ential hypertension 8881774 I10 BP at goal c/w lisinopril continue to work on diet, exercise, and lowering salt intake as discussed Disorder o f nervous system due to type 2 diabetes mellitus 443057933 E11.49 DM is [id number] 5.8 which is great- at goaldiscus sed importance of foot carealread y had 1 amputation injury to L great toe- no open toe shoes Obesity 925886158 E66.9 BMI 30.5c/w low fat, low carb diet c/w regular activity Injury of toe 918561592 S99.922A likely paronychia of L great toeInterdi git is red, swollen with some warmthno painhx of osteomyeli tis with amputation xray todaystart keflex 500 mg tid x 7 days. Cramp in l ower limb associated with sleep 8431515483 52270 G47.62 advised increasing potassium with banana, sweet potatoeske ep hydrated with electrolyt estry diet tonic prior to bed [id number] Nikole Pandya . MD SEARS, [facility] [address] [place] [address] 10/28/2019 08:30:56 10/28/2019 15:14:19 Low back pain 683133175 M54.5 Low back strain, no alarming symptoms. Will treat with ice, muscle relaxers and NSAIDs. Do not take ibuprofen with meloxicam. Call us with any new neurologic symptoms. 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 [id number] PABLO Sommers, [facility] [address] [place] [address] 05/13/2020 10:57:05 05/14/2020 11:47:45 Adult health examination 953039008 Z00.00 see Risk Assessment and Lifestyle Change Counseling section aboveHM: labs utdcolonos copy due Counseling 987637276 Z71 .9 including cardiovasc ular risk reduction counseling Depression screening 171 793962 Z13.89 0 out of 27 phq 9mood is gooddepres dorys screening tool administer ed, entered into emr, scored and discussed, time greater than 7.5 minutes Screening for alcohol abuse 033961889 Z13.39 + auditwill work on decreasein g Amputated toe 098746496 Z89.429 R 2nd toecheck feet daily Type 2 nora betes mellitus without complication 384512809 E11.9 A1C 6.3 up from 5.8 but at Goal <6.5advise d to reduce ETOH particular ly shots doing well with more activity d/t jobno med changesrto 6 months for MM Alcohol dependence 24323 003 F10.20 Audit 43-4 everyday after work - drinking more with covid and less to do at nightis doing shotsadvis ed to reduce- pt agrees Mixed hyperlipidemia 267 076062 E78.2 Cholestero l is at goal LDL is 46Trigs are high at 281- will work on diet and less etoh Continue to work on diet and exercise as discussed Essential hypertension 79058347 I10 cannot check bpwill have him come in for bp checkif not at goal of < 130/80 will increase lisinopril to 20 mg [id number] Aydee Clarke NP , [facility] [address] [place] [address] 05/27/2020 09:04:01 05/28/2020 15:26:35 [id number] Anali Yanez D.OXu , [facility] [address] [place] [address] 10/28/2020 07:51:21 11/19/2020 16:22:56 Essential hypertension 28634819 I10 cannot check bpwill have him come in for bp checkif not at goal of < 130/80 will increase lisinopril to 20 mg Adult heal th examination 302202300 Z00.00 see Risk Assessment and Lifestyle Change Counseling section above HM: labs utd colonoscop y due Counseling 269829068 Z71 .9 including cardiovasc ular risk reduction counseling Screening for alcohol abuse 367443448 Z13.39 + auditwill work on decreasein g Mixed hyperlipidemia 267 853279 E78.2 Cholestero l is at goal LDL is 50 Trigs are high at 472- will work on diet and less etoh Continue to work on diet and exercise as discussed Amputated toe 998711515 Z89.429 R 2nd toecheck feet daily Type 2 nora betes mellitus without complication 095673907 E11.9 A1C 6.1 at Goal <6.5 advised to reduce ETOH doing well with more activity d/t job no med changes rto 6 months for MM Alcohol dependence 27831 003 F10.20 Audit 7 more with pandemic 3-4 everyday after work - drinking more with covid and less to do at night is doing shots advised to reduce- pt agrees Neuropathy due to diabetes mellitus 356561131 E11.40 abn but stable discussed importance of checking feet regularly. no open toe shoesneed to protect feet [id number] Dorina Zaman RN , [facility] [place] [address] [place] [address] 11/18/2020 08:16:03 11/19/2020 16:14:08 [id number] Yolette Ortiz RN [facility], [facility] [address] [place] [address] 11/26/2020 06:44:42 11/26/2020 12:47:20 [id number] Nikole Shoushtari . , [facility], [place] [address] [place] [address] 06/03/2021 14:03:53 06/03/2021 14:47:31 Low back pain 146824433 M54.50 acute low back pain x 4 hoursNo Red FlagsCan use heat/ice to see if its helpfulMot rin for pain as neededTria l muscle relaxants for spasmsAdvi sed if no improvemen t over the next couple of weeks to f/u for PT referral Benign ess ential hypertension 7254241 I10 BP at goalBP goal < 130/80labs up to date [id number] Jarocho Browne MD , [facility], [address] [place] [address] 06/13/2021 08:59:47 06/13/2021 09:45:05 Rib pain 478946527 R07.81 fall to a raised corner of a deck yesterdayn ow with positional muscular pain Left Ant chest wall and axilla. wincingly tender [id number] rib mid axillary line although no ecchymosis or wound is visibleL CTA he has experience d rib injuries before, so understand s duration of activity limiting pain with leftarm and truncal movementsr ec ibuprofen' image fo rproignost ics [id number] Aydee Clarke NP , [facility] [address] [place] [address] 11/03/2021 08:30:54 11/03/2021 09:02:37 Adult health examination 845546398 Z00.00 see Risk Assessment and Lifestyle Change Counseling section above HM: labs utd colonoscop y 11/26/2020 W/ 5 YR REPEATEYE EXAM 10/23/2020- WILL SCHEDULE Counseling 209141197 Z71 .9 including cardioascu lar risk reduction counseling Depression screening 171 998903 Z13.31 neg phq 9depressio n screening tool administer ed, entered into emr, scored and discussed, time greater than 7.5 minutes Screening for alcohol abuse 606948854 Z13.39 + auditwill work on decreasein g Amputated toe 101832210 Z89.429 R 2nd toecheck feet daily Alcohol dependence 93157 003 F10.20 Audit 7 more with pandemic and loss of dog 3-4 2x week and then on weekends advised to reduce- pt agrees Essential hypertension 82603188 I10 Bp not at goal of < 130/80 but just aboveno med changes Neuropathy due to diabetes mellitus 261454962 E11.40 A1C 6,4- sugars stablec/w metformin 1500 mg qdabn but stable discussed importance of checking feet regularly. no open toe shoesneed to protect feet Mixed hyperlipidemia 267 639606 E78.2 Cholestero l is at goal LDL is 45 Trigs are better 222 Continue to work on diet and exercise as discussed Obesity 630883624 E66.9 BMI 30.6keep low fat, low carb dietc/w regular activity [id number] Anali Yanez D.O. , [facility] [address] [address] [place], [place] [address] 05/11/2022 09:14:18 05/11/2022 09:53:17 Essential hypertension 90460454 I10 Bp at goal of < 130/80no med changesf/u 3 mos Mixed hyperlipidemia 267 786430 E78.2 Cholestero l is at goal LDL is 45 Trigs 371- will work on better diet Continue to work on diet and exercise as discussed Amputated toe 541813553 Z89.429 R 2nd toecheck feet daily Obesity 123334027 E66.9 BMI 30.6keep low fat, low carb dietc/w regular activity Alcohol dependence 01840 003 F10.20 more with pandemic and loss of dog but had returned to baseline 3-4 2x week Neuropathy due to diabetes mellitus 289880206 E11.40 A1C 6.6 - slight increase from previous but overall sugars stablec/w metformin 1500 mg qdabn but stable discussed importance of checking feet regularly. 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 Genesis Coats [id number] Aydee Clarke NP FP, [facility] [address] [place] [address] 11/10/2022 08:27:54 11/10/2022 09:18:34 Adult health examination 695486402 Z00.00 see Risk Assessment and Lifestyle Change Counseling section above HM: labs utd colonoscop y 11/26/2020 W/ 5 YR REPEATEYE EXAM 10/23/2020- WILL SCHEDULE Depression screening 171 385975 Z13.31 depression screening tool administer edneg phq 9 Screening for alcohol abuse 990232699 Z13.39 Alcohol use screening tool administer edaudit 55 days a week- more on weekends. 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 no open toe shoesneed to protect feet Primary er ectile dysfunction 465711632 N52.9 Disorder o f nervous system due to type 2 diabetes mellitus 912711394 E11.49 A1C 6.4 -c/w metformin 1500 mg qdfully abn foot exam but stable discussed importance of checking feet regularly. no open toe shoesneed to protect feet [id number] Nikole Shoushtari . 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 115021483 E11.3299 mild OUutd on exam 04/2023fol lowed by [place] yan get exam notes Type 2 nora betes mellitus without complication 315450942 E11.9 A1C 6.5 at Goal <6.5 advised to reduce ETOH doing well with more activity d/t job no med changes rto 6 months for MM Obesity 200209516 E66.9 BMI 30.4keep low fat, low carb dietc/w regular activity Alcohol dependence 72627 003 F10.20 continues with etoh 3-4 days week more on weekends d iscussed impact on EDencourag ed reduction Benign ess ential hypertension 7203372 I10 BP at goal c/w lisinopril continue to work on diet, exercise, and lowering salt intake as discussed Neuropathy due to diabetes mellitus 769053727 E11.40 A1C 6.5c/w metformin 2000 mg qdfully abn foot exam but stable discussed importance of checking feet regularly. no open toe shoesneed to protect feet Mixed hyperlipidemia 267 059391 E78.2 Cholestero l is at goal at 30c/w statinCont inue to work on diet and exercise as discussed Adult heal th examination 831188197 Z00.00 see Risk Assessment and Lifestyle Change Counseling section above HM: labs utd colonoscop y 11/26/2020 W/ 5 YR REPEATEYE EXAM 04/2023- WILL SCHEDULE declines psa Depression screening 171 680852 Z13.31 depression screening tool administer edneg phq 9mood is good Screening for alcohol abuse 545110653 Z13.39 Alcohol use screening tool administer edaudit 8etoh dependence discussed impact on sugars, kidney/braden er fx- understand s Screening for malignant neoplasm of prostate 634905443 Z12.5 If you have a prostate, the [...] expectancy .declines testing this year Rib pain 246255105 R07.8 1 injury 2 weeks agorf of ibuprofen Disorder o f nervous system due to type 2 diabetes mellitus 717697117 E11.49 A1C 6.5c/w metformin 1500 mg qdfully abn foot exam but stable discussed importance of checking feet regularly. 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 619176213 E11.3299 mild OUutd on exam 06/2023fol lowed by [employer] Type 2 nora betes mellitus without complication 143551941 E11.9 A1C 6.9 at Goal <7.0 advised to reduce ETOH doing well with more activity d/t job no med changes rto 6 months for MM Obesity 947209643 E66.9 BMI 30.4keep low fat, low carb dietc/w regular activity Alcohol dependence 67032 003 F10.20 etoh 4-5 x week few drinkswork ing on reducing weekday drinkingun derstands impact on blood sugar, liver Benign ess ential hypertension 9676955 I10 BP at goal c/w lisinopril continue to work on diet, exercise, and lowering salt intake as discussed Neuropathy due to diabetes mellitus 939791975 E11.40 A1C 6.9 up from 6.5is going to focus on diet, less weekday etohc/w metformin 2000 mg qdfully abn foot exam but stable discussed importance of checking feet regularly. no open toe shoesneed to protect feet Mixed hyperlipidemia 267 745756 E78.2 Cholestero l is at goal at 30c/w statinCont inue to work on diet and exercise as discussed Influenza vaccination declined 227465869 Z28.21 Health Concerns Section Related Observation LastModified by Organization Detai ls LastModified Time None Recorded Concern Status LastModified by Organization Details LastModified Time None Recorded Advance Directives Directive None Recorded Payers Encounter Date Sequence Insurance Name Policy Number Policy Padron Covered Member ID Padron Member ID Guarantor Name 11/10/2022 1 [facility] [employer] 111 Timo Meng [id number] Timo Meng 05/10/2023 1 [employer] 111 Timo Meng [id number] Timo Meng 11/02/2023 1 [place] 111 Timo Meng [id number] Timo Meng 11/13/2023 1 [place] 111 Timo Meng [id number] Timo Meng 05/15/2024 1 [place] 111 Timo Meng [id number] Timo Meng Notes Date Note Type Note [...] decline in exercise capacity Aydee Clarke NP [address] [place] [address], [phone], [facility] 11/10/2022 09:20:06 3 text/html VM[facility] DiabetesReported [...] in exercise capacity saw dentist concern re: [id number] up from 6.4- has beenetoh 3-4 days a week - few after work Nikole Pandya. [address] [place] [address], [phone], [facility] 05/13/2023 15:47:09 4 text/html 10/30/2023 injury [...] better than the ice. Junie Parekh MD [address] [place] [address], [phone], [facility] 11/02/2023 09:54:13 4 text/html Physical Exam/MaleReported [...] identified barriers to care Context:Diabetes;Peripheral vascular disease (27038) Associated Symptoms:no muscle pain; no dyspnea; no [...] decline in exercise capacity Aydee Clarke NP [address] [place] [address], [phone], [facility] 11/13/2023 13:01:29 text/html VMG DiabetesReported bypatient.Review [...] identified barriers to care Context:Diabetes;Peripheral vascular disease (60900) Associated Symptoms:no muscle pain; no dyspnea; no [...] keeping it to weekends Aydee Clarke NP [address] [place] [address], [phone], [facility] 05/15/2024 08:59:35
--- OUTSIDE RECORDS SUMMARY | 2024-10-22 15:56 | XMS_ITS | Clinical Summary ---
Author Organization [facility] Address [address] [facility] [address] [place] [phone] Phone Care Team Providers Care Courtesy Driver Name Role Phone Orin Joshi NP Primary Care Provider [phone] Allergies No known active allergies Medications Medication Sig Dispensed Refills Start Date End Date Status simvastatin (ZOCOR) 20 MG tablet Take 20 mg by mouth nightly. Active metformin HCl (METFORMIN ORAL) Take 500 tablets by mouth 2 (two) times a day. Active lisinopril (PRINIVIL,ZESTRIL) 10 MG tablet Take 10 mg by mouth daily. Active omega 2-ipp-dxn-fish oil 1,000 mg (120 mg-180 mg) Cap [...] Medical Devices Not on file Care Teams Courtesy Driver Relationship Specialty Start Date End Date Orin Joshi NP [address] [place] [id number] PCP - General 11/26/20 Additional Source Comments The information contained in this document represents components of the legal health record. It is not the complete legal health record.[facility]
[2024-11-11 12:14] VITALS: BP 147/70; PULSE 85; RESP 18; TEMP 36.7; O2SAT 98
[2024-11-11 13:10] VITALS: BMI 29.8
--- NOTE | 2024-11-11 13:15 | P.OP_ITS ---
Operative Note Operative Note Date of Service: 11/11/24 Narrative: Operative Note Preop diagnosis: 1. Right DeQuervain's tenosynovitis Postop diagnosis: 1. Right DeQuervain's tenosynovitis Procedure: 1. Right 1st dorsal compartment release 2. Tenosynovectomy of right APL tendon Surgeon: Meaghan Kaiser MD Motor Assembly Supervisor: Edmundo CHAVEZ Anesthesia: local block using 1% lidocaine with epinephrine Findings: Thickened 1st dorsal compartment. Hypertrophic tenosynovium about the APL tendon EBL: Less than 5 mL Tourniquet time: None Specimens: None Complications: None Disposition: Brought to recovery room in stable condition Plan: Follow-up for 7-10 days for wound check and suture removal Indications: The patient is 54 years old, with right DeQuervain's tenosynovitis that has been unresponsive to nonoperative management. The risks and benefits of operative treatment including but not limited to risk of damage to blood vessels, nerves, tendons, infection, persistent pain, persistent symptoms, recurrence or possible need for additional surgery were discussed with the patient and the patient wishes to proceed with surgery. Procedure: Once consent was obtained a local block was performed in the preop area using a combination of 1% lidocaine with epinephrine. The patient was then brought back to the operating suite and placed on the operative table in supine position. The right upper extremity was prepped and draped in a standard surgical fashion. Once assured that we had a good block, a 1.5 cm longitudinal incision was made centered over the 1st dorsal compartment as it passed over the radial styloid of the right wrist. The incision was made through the skin to the subcutaneous tissues using a #15 blade. Careful dissection was made down to the level of the 1st dorsal compartment using tenotomy scissors, with care being taken to protect the nearby branches of the superficial radial nerve. Once the 1st dorsal compartment was exposed, A longitudinal incision was made in the 1st dorsal compartment 1st using a #15 blade, then using tenotomy scissors under direct visualization. The 1st dorsal compartment was noted to be thickened. He was noted to have hypertrophic tenosynovium that had become fibrotic about the APL tendon. I performed a tenosynovectomy excising this hypertrophic tenosynovium from about the APL tendon using tenotomy and iris scissors. Following our release, we saw smooth gliding abductor pollicis longus and extensor pollicis brevis tendons. Once satisfied with our 1st dorsal compartment release the wound was copiously irrigated with normal saline and hemostasis was obtained with a brief period of local pressure. The subcutaneous layer was closed with some 4-0 Vicryl suture, and the skin edges were reapproximated with some 5.0 nylon suture material. A sterile dressing was applied. The patient appears to have tolerated the procedure well and with no complications. All digits were well vascularized at the conclusion of the case.
--- NOTE | 2024-11-11 13:15 | MHC.SHP ---
Pre-Procedural Eval Section A - 24 Hr Update-Section A only Date of Service: 11/11/24 The patient is an INPATIENT: No Changes since office visit: No Cold of Flu in the past 2 weeks, No New Medical Problems, No Changes in Medication and No Patient answered all questions The patient has been examined within 24 hours of the surgical procedure. The History & Physical has been completed within 30 days and I have reviewed it.: Yes Section B - Complete if H&P > 30 days Chief Complaint: Radial styloid tenosynovitis [de Quervain] Allergies: Allergies Allergy/AdvReac Type Severity Reaction Status Date / Time No Known Allergies Allergy Verified 10/21/24 09:48 Plan Diagnosis/Plan: Unchanged I have reviewed the history and physical and performed a pertinent physical examination on my patient. No changes have occurred unless specified. Time Spent With Patient Time: Total time managing care of this patient today ____ minutes.
[2024-11-11 13:51] VITALS: BP 120/71; PULSE 93; RESP 18; TEMP 36.7; O2SAT 98
== END 2024-11-11 13:54 | disposition home or self-care (01) ==
PROVIDERS: PCP Nurse Practitioner Adult Health; Visit Provider Orthopaedic Surgery
PROC: (CPT 25118; principal; 2024-11-11 15:20)
DX: M65.4 Radial styloid tenosynovitis [de Quervain] (principal)
CPT/HCPCS: 25118; 25000; J0171; J2003

== ENCOUNTER → 2024-11-11 11:27 | Outpatient (BNV) | payer BC, SELFPAY | PROVIDERS: PCP Nurse Practitioner Adult Health; Visit Provider Orthopaedic Surgery | DX: M65.4 Radial styloid tenosynovitis [de Quervain] (principal) | CPT/HCPCS: 25000 ==

== ENCOUNTER 2024-11-20 09:10 | Outpatient (REF) | payer BC, SELFPAY ==
--- OUTSIDE RECORDS SUMMARY | 2024-11-20 09:52 | XMS_ITS | Data Portability ---
Author Organization [facility], [facility] Address [address] [place] [address] Care Team Providers Care Americanization Teacher Name Role Phone AYDEE CLARKE Primary Care Provider EYE DR Parking Enforcer [facility] Brewing Technician [phone] [facility] Urologist Assessment Encounter Date Assessment [...] Details Appointments LAB Follow-Up 2024 07:30A [place] [facility] Not available Not available Not available Wellness Visit 30 2024 09:15A M Aydee Clarke PABLO Not available Not available Not available Lab HbA1c (hemoglob in A1c), blood 2022 024 [facility], [address] [facility], [place], [address], 08/09/2023 10:57:33 Referral gastroent erologist referral - per dentist as significa nt erosion of enamel 2022 023 [facility], [address] [place], [address], 09/28/2023 12:31:18 Procedures None recorded. Surgeries None recorded. Imaging XR, ribs, unilatera l - eval for fractured ribs, s/p fall on stone wall on L side 2023 024 [facility] (Imaging), [address] , [place], [address], 11/02/2023 10:18:03 Medication Orders simvastat in 20 mg tablet 2023 024 [facility]acy #[id number], [address] [place] [address], [address], 05/15/2024 08:59:23 metformin ER 500 mg tablet,ex tended release 24 hr 2023 024 [facility]acy #0818, [address] [place], [address], 05/15/2024 08:59:23 lisinopri l 10 mg tablet 2023 024 [facility] #0818, [address] [place], [address], 05/15/2024 08:59:22 ibuprofen 800 mg tablet 2023 024 [email or web address] [address] [place], [address], 11/13/2023 10:26:24 lisinopri l 10 mg tablet 2023 024 [facility]acy #0818, [address] [place], [address], 11/13/2023 10:26:18 ibuprofen 800 mg tablet 2023 024 [facility] #0818, [address] [place], [address], 11/02/2023 08:27:07 sildenafi l 50 mg tablet 2022 023 [facility] [address] [place], [address], 11/13/2023 09:54:42 Patient TargetsNo targets recorded. Patient Instructions Encounter Date Encounter Id Patient Instructions Last Modified By Organization Details Last Modified Time 11/10/2022 [id number] high cholesterol lifestyle changes pkeough Not available 11/10/2022 09:18:51 Well Visit 50 to 65: Care Instructions pkeough Not available 11/10/2022 09:18:50 11/13/2023 [id number] high blood pressure: care instructions pkeough Not available 11/13/2023 10:26:16 learning about high blood pressure pkeough Not available 11/13/2023 10:26:16 05/15/2024 [id number] high blood pressure: care instructions pkeough Not available 05/15/2024 08:59:20 learning about high blood pressure pkeough Not available 05/15/2024 08:59:20 Reason for Referral Brewing Technician Referral for Erosion of teeth per dentist [...] furth er confi rmati on Not Available [address], [address], 11/02/2022 11:36:14 11/03/19 23 11/02/2022 HGB A1C estimated average glucose 137.0 mg/dL Not Available [address], [address], 11/02/2022 11:36:14 11/03/19 23 11/02/2022 BASIC METAB OLIC PANEL glucose 151 mg/dL 70-100 high Not Available [address], [address], 11/02/2022 15:34:56 11/03/19 23 11/02/2022 BASIC METAB OLIC PANEL BUN 17 mg/dL 7-18 Not Available [address], [address], 11/02/2022 15:34:56 11/03/19 23 11/02/2022 BASIC METAB OLIC PANEL creatinine 1.0 mg/dL 0.8-1. 3 Not Available [address], [address], 11/02/2022 15:34:56 11/03/19 23 11/02/2022 BASIC METAB OLIC PANEL B/C 17.0 ratio Not Available [address], [address], 11/02/2022 15:34:56 11/03/19 23 11/02/2022 BASIC METAB [...] be used in pregn babak. Not Available [address], [address], 11/02/2022 15:34:56 11/03/19 23 11/02/2022 BASIC METAB OLIC PANEL sodium 138 mmol/ L 136-14 5 Not Available [address], [address], 11/02/2022 15:34:56 11/03/19 23 11/02/2022 BASIC METAB OLIC PANEL potassium 4.3 mmol/ L 3.5-5. 1 Not Available [address], [address], 11/02/2022 15:34:56 11/03/19 23 11/02/2022 BASIC METAB OLIC PANEL chloride 102 mmol/ L 96-107 Not Available [address], [address], 11/02/2022 15:34:56 11/03/19 23 11/02/2022 BASIC METAB OLIC PANEL anion gap 9.2 5.0-15 .0 Not Available [address], [address], 11/02/2022 15:34:56 11/03/19 23 11/02/2022 BASIC METAB OLIC PANEL CO2 27 mmol/ L 21-32 Not Available [address], [address], 11/02/2022 15:34:56 11/03/19 23 11/02/2022 BASIC METAB OLIC PANEL calcium 8.9 mg/dL 8.5-10 .3 Not Available [address], [address], 11/02/2022 15:34:56 11/03/1911/02/2022 LIPID PANEL cholesterol 143 mg/dL <200 mg/dl Sudhir able 200-2 39 mg/dl Borde rline High >240 mg/dl High Not Available [address], [address], 11/02/2022 15:34:57 11/03/19 23 11/02/2022 LIPID PANEL triglyceride s 317 mg/dL high <150 mg/dL Viki l 150-1 99 mg/dL Borde rline High 200-4 99 mg/dL High >500 mg/dL Very High Not Available [address], [address], 11/02/2022 15:34:57 11/03/19 23 11/02/2022 LIPID PANEL direct HDL 38 mg/dL <40 mg/dl - Major Risk for CHD >60 mg/dl - Negat berta Risk for CHD Not Available [address], [address], 11/02/2022 15:34:57 11/03/1911/02/2022 DIREC T LDL direct [...] r is not necmeaghan maisha. Not Available [address], [address], 11/02/2022 16:48:05 05/03/20 23 05/03/2023 HGB A1C [...] furth er confi rmati on Not Available [address], [address], 05/03/2023 12:05:19 05/03/2005/03/2023 HGB A1C estimated average glucose 157.1 mg/dL Not Available [address], [address], 05/03/2023 12:05:19 05/03/2005/03/2023 BASIC METAB OLIC PANEL glucose 173 mg/dL 70-100 high Not Available [address], [address], 05/03/2023 12:12:20 05/03/2005/03/2023 BASIC METAB OLIC PANEL BUN 17 mg/dL 7-18 Not Available [address], [address], 05/03/2023 12:12:20 05/03/2005/03/2023 BASIC METAB OLIC PANEL creatinine 1.0 mg/dL 0.8-1. 3 Not Available [address], [address], 05/03/2023 12:12:20 05/03/2005/03/2023 BASIC METAB OLIC PANEL B/C 17.0 ratio Not Available [address], [address], 05/03/2023 12:12:20 05/03/2005/03/2023 BASIC METAB OLIC PANEL [...] be used in pregn babak. Not Available [address], [address], 05/03/2023 12:12:20 05/03/2005/03/2023 BASIC METAB OLIC PANEL sodium 138 mmol/ L 136-14 5 Not Available [address], [address], 05/03/2023 12:12:20 05/03/2005/03/2023 BASIC METAB OLIC PANEL potassium 4.2 mmol/ L 3.5-5. 1 Not Available [address], [address], 05/03/2023 12:12:20 05/03/2005/03/2023 BASIC METAB OLIC PANEL chloride 102 mmol/ L 96-107 Not Available [address], [address], 05/03/2023 12:12:20 05/03/2005/03/2023 BASIC METAB OLIC PANEL anion gap 11.9 5.0-15 .0 Not Available [address], [address], 05/03/2023 12:12:20 05/03/2005/03/2023 BASIC METAB OLIC PANEL CO2 24 mmol/ L 21-32 Not Available [address], [address], 05/03/2023 12:12:20 05/03/20 23 05/03/2023 BASIC METAB OLIC PANEL calcium 9.0 mg/dL 8.5-10 .3 Not Available [address], [address], 05/03/2023 12:12:20 05/03/2005/03/2023 LIPID PANEL cholesterol 148 mg/dL <200 mg/dl Sudhir able 200-2 39 mg/dl Borde rline High >240 mg/dl High Not Available [address], [address], 05/03/2023 12:12:21 05/03/20 23 05/03/2023 LIPID PANEL triglyceride s 323 mg/dL high <150 mg/dL Viki l 150-1 99 mg/dL Borde rline High 200-4 99 mg/dL High >500 mg/dL Very High Not Available [address], [address], 05/03/2023 12:12:21 05/03/20 23 05/03/2023 LIPID PANEL direct HDL 42 mg/dL <40 mg/dl - Major Risk for CHD >60 mg/dl - Negat berta Risk for CHD Not Available [address], [address], 05/03/2023 12:12:21 05/03/20 23 05/03/2023 DIREC T [...] r is not jose ferrera. Not Available [address], [address], 05/03/2023 14:38:05 05/03/20 23 05/03/2023 MICRO ALBUM IN/CR EATIN INE RATIO PANEL , URINE microalbumin 8.0 mg/L 1.3-20 .0 Not Available [address], [address], 05/03/2023 15:48:25 05/03/20 23 05/03/2023 MICRO ALBUM IN/CR EATIN INE RATIO PANEL , URINE creatinine urine 139.3 mg/dL 30.0-1 25.0 high Not Available [address], [address], 05/03/2023 15:48:25 05/03/20 23 05/03/2023 MICRO ALBUM IN/CR EATIN INE RATIO PANEL , URINE microalb/cre at ratio 5.7 mg/g_ creat 0.0-29 .0 Not Available [address], [address], 05/03/2023 15:48:25 08/09/19 24 08/09/2023 BASIC METAB OLIC PANEL glucose 168 mg/dL 70-100 high Not Available [address], [address], 08/09/2023 10:55:05 08/09/19 24 08/09/2023 BASIC METAB OLIC PANEL BUN 17 mg/dL 7-18 Not Available [address], [address], 08/09/2023 10:55:05 08/09/19 24 08/09/2023 BASIC METAB OLIC PANEL creatinine 1.1 mg/dL 0.8-1. 3 Not Available [address], [address], 08/09/2023 10:55:05 08/09/19 24 08/09/2023 BASIC METAB OLIC PANEL B/C 15.5 ratio Not Available [address], [address], 08/09/2023 10:55:05 08/09/19 24 08/09/2023 BASIC METAB [...] be used in pregn babak. Not Available [address], [address], 08/09/2023 10:55:05 08/09/19 24 08/09/2023 BASIC METAB OLIC PANEL sodium 139 mmol/ L 136-14 5 Not Available [address], [address], 08/09/2023 10:55:05 08/09/19 24 08/09/2023 BASIC METAB OLIC PANEL potassium 4.3 mmol/ L 3.5-5. 1 Not Available [address], [address], 08/09/2023 10:55:05 08/09/19 24 08/09/2023 BASIC METAB OLIC PANEL chloride 102 mmol/ L 96-107 Not Available [address], [address], 08/09/2023 10:55:05 08/09/19 24 08/09/2023 BASIC METAB OLIC PANEL anion gap 10.8 5.0-15 .0 Not Available [address], [address], 08/09/2023 10:55:05 08/09/19 24 08/09/2023 BASIC METAB OLIC PANEL CO2 26 mmol/ L 21-32 Not Available [address], [address], 08/09/2023 10:55:05 08/09/19 24 08/09/2023 BASIC METAB OLIC PANEL calcium 8.9 mg/dL 8.5-10 .3 Not Available [address], [address], 08/09/2023 10:55:05 08/09/19 24 08/09/2023 HGB A1C [...] furth er confi rmati on Not Available [address], [address], 08/09/2023 10:57:32 08/09/19 24 08/09/2023 HGB A1C estimated average glucose 157.1 mg/dL Not Available [address], [address], 08/09/2023 10:57:32 10/25/19 24 10/25/2023 HGB A1C [...] furth er confi rmati on Not Available [address], [address], 10/25/2023 11:15:39 10/25/19 24 10/25/2023 HGB A1C estimated average glucose 139.9 mg/dL Not Available [address], [address], 10/25/2023 11:15:39 10/25/19 24 10/25/2023 BASIC METAB OLIC PANEL glucose 149 mg/dL 70-100 high Not Available [address], [address], 10/25/2023 16:27:42 10/25/19 24 10/25/2023 BASIC METAB OLIC PANEL BUN 21 mg/dL 7-18 high Not Available [address], [address], 10/25/2023 16:27:42 10/25/19 24 10/25/2023 BASIC METAB OLIC PANEL creatinine 1.0 mg/dL 0.8-1. 3 Not Available [address], [address], 10/25/2023 16:27:42 10/25/19 24 10/25/2023 BASIC METAB OLIC PANEL B/C 21.0 ratio Not Available [address], [address], 10/25/2023 16:27:42 10/25/19 24 10/25/2023 BASIC METAB [...] be used in pregn babak. Not Available [address], [address], 10/25/2023 16:27:42 10/25/19 24 10/25/2023 BASIC METAB OLIC PANEL sodium 139 mmol/ L 136-14 5 Not Available [address], [address], 10/25/2023 16:27:42 10/25/19 24 10/25/2023 BASIC METAB OLIC PANEL potassium 4.4 mmol/ L 3.5-5. 1 Not Available [address], [address], 10/25/2023 16:27:42 10/25/19 24 10/25/2023 BASIC METAB OLIC PANEL chloride 101 mmol/ L 96-107 Not Available [address], [address], 10/25/2023 16:27:42 10/25/19 24 10/25/2023 BASIC METAB OLIC PANEL anion gap 12.9 5.0-15 .0 Not Available [address], [address], 10/25/2023 16:27:42 10/25/19 24 10/25/2023 BASIC METAB OLIC PANEL CO2 25 mmol/ L 21-32 Not Available [address], [address], 10/25/2023 16:27:42 10/25/19 24 10/25/2023 BASIC METAB OLIC PANEL calcium 9.1 mg/dL 8.5-10 .3 Not Available [address], [address], 10/25/2023 16:27:42 10/25/19 24 10/25/2023 LIPID PANEL cholesterol 113 mg/dL <200 mg/dl Sudhir able 200-2 39 mg/dl Borde rline High >240 mg/dl High Not Available [address], [address], 10/25/2023 16:27:43 10/25/19 24 10/25/2023 LIPID PANEL triglyceride s 205 mg/dL <150 mg/dL Viki l 150-1 99 mg/dL Borde rline High 200-4 99 mg/dL High >500 mg/dL Very High Not Available [address], [address], 10/25/2023 16:27:43 10/25/19 24 10/25/2023 LIPID PANEL direct HDL 42 mg/dL <40 mg/dl - Major Risk for CHD >60 mg/dl - Negat berta Risk for CHD Not Available [address], [address], 10/25/2023 16:27:43 10/25/19 24 10/25/2023 LDL - [...] r is not terrimeaghan maisha. Not Available [address], [address], 10/25/2023 16:27:44 10/25/19 24 10/26/2023 IMMUN OGLOB ULIN A immunoglobul in A 125 mg/dL 47-310 normal Not Available [facility] [address], [address], 10/26/2023 16:02:40 10/25/19 24 10/26/2023 TISSU E TRANS GLUTA SANDRINE E AB, IGA tissue transglutami nase Ab, IgA <1.0 U/mL normal Value Inter preta tion ----- ----- ----- ---- <15.0 Antib tobias not detec audelia > or = 15.0 Antib tobias detec audelia Not Available [facility] [address], [address], 10/26/2023 16:02:41 01/02/20 24 01/02/2024 POC GLU POC glu 179 70 - 100 high Not Available [facility] [address] [place] [address], [address], 01/04/2024 09:10:15 05/08/20 24 05/08/2024 HGB A1C [...] furth er confi rmati on Not Available [address], [address], 05/08/2024 11:51:31 05/08/20 24 05/08/2024 HGB A1C estimated average glucose 151.3 mg/dL Not Available [address], [address], 05/08/2024 11:51:31 05/08/20 24 05/08/2024 MICRO ALBUM IN/CR EATIN INE RATIO PANEL , URINE microalbumin 21.0 mg/L 1.3-20 .0 high Not Available [address], [address], 05/08/2024 14:38:50 05/08/2005/08/2024 MICRO ALBUM IN/CR EATIN INE RATIO PANEL , URINE creatinine urine 121.7 mg/dL 30.0-1 25.0 Not Available [address], [address], 05/08/2024 14:38:50 05/08/20 24 05/08/2024 MICRO ALBUM IN/CR EATIN INE RATIO PANEL , URINE microalb/cre at ratio 17.3 mg/g_ creat 0.0-29 .0 Not Available [address], [address], 05/08/2024 14:38:50 05/08/20 24 05/09/2024 BASIC METAB OLIC PANEL glucose 182 mg/dL 70-100 high Not Available [address], [address], 05/09/2024 15:14:00 05/08/20 24 05/09/2024 BASIC METAB OLIC PANEL BUN 15 mg/dL 7-18 Not Available [address], [address], 05/09/2024 15:14:00 05/08/20 24 05/09/2024 BASIC METAB OLIC PANEL creatinine 1.1 mg/dL 0.8-1. 3 Not Available [address], [address], 05/09/2024 15:14:00 05/08/20 24 05/09/2024 BASIC METAB OLIC PANEL B/C 13.6 ratio Not Available [address], [address], 05/09/2024 15:14:00 05/08/20 24 05/09/2024 BASIC METAB [...] be used in pregn babak. Not Available [address], [address], 05/09/2024 15:14:00 05/08/20 24 05/09/2024 BASIC METAB OLIC PANEL sodium 140 mmol/ L 136-14 5 Not Available [address], [address], 05/09/2024 15:14:00 05/08/20 24 05/09/2024 BASIC METAB OLIC PANEL potassium 4.9 mmol/ L 3.5-5. 1 Not Available [address], [address], 05/09/2024 15:14:00 05/08/20 24 05/09/2024 BASIC METAB OLIC PANEL chloride 101 mmol/ L 96-107 Not Available [address], [address], 05/09/2024 15:14:00 05/08/20 24 05/09/2024 BASIC METAB OLIC PANEL anion gap 9.0 5.0-15 .0 Not Available [address], [address], 05/09/2024 15:14:00 05/08/20 24 05/09/2024 BASIC METAB OLIC PANEL CO2 30 mmol/ L 21-32 Not Available [address], [address], 05/09/2024 15:14:00 05/08/20 24 05/09/2024 BASIC METAB OLIC PANEL calcium 9.5 mg/dL 8.5-10 .3 Not Available [address], [address], 05/09/2024 15:14:00 11/02/19 24 11/02/2023 XR, ribs, unila teral CLINIC AL HISTOR Y: Left-s ided chest wall pain after a fall. Histor y of old fractu res. TECHNI QUE: At least 3 views of the left ribs are obtain ed. COMPAR SANDEE: 2020, 017 FINDIN GS: There are analysis evaluator ior and latera l fractu res of the left fourth , fifth, sixth ribs. There are fractu re along the latera l aspect of the left sevent h, eighth and ninth ribs. There are fractu re of along the analysis evaluator ior and beata latera l aspect s [...] ation recomm ended. Vinh everett Physic ana: Shanatalie steffanie Patrice ms [facility] (Imaging) [address] , [place], [address], 11/13/2023 10:06:59 Result Notes None recorded. Problems Name Problem SNOMED Code Status Onset Date Resolution Date Notes Provider Name and Address Organization Details Recorded Time Benign essentia l hyperten andra 8560983 Active Not Available [facility] 2 09:32:40 Neuropat hy due to diabetes mellitus 768716193 Active Not Available [facility] 2 09:32:40 Alcohol dependen ce 35190107 Active 2015 Not Available [facility] 2 09:32:40 Amputate d toe 794322990 Active 2018 Not Available [facility] 2 09:32:40 Obesity 952961173 Active 2021 Aydee Clarke NP [address] [place] [address], [address] , [facility] 2 09:06:14 Basal cell carcinom a of skin 488732052 Active 2021 Bina Chopra NP [address] [place] [address], [address] , [facility] 2 08:37:19 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 461322582 Active 2021 Aydee Clarke NP [address] [place] [address], [address] , [facility] 2 10:05:16 Tenosyno vitis of right radial styloid 87477607954 962480 Active 2024 Done at [facility] ROGE Granados, [facility] 5 16:25:32 Mixed hyperlip idemia 720619178 Active 2006 Not Available [facility] 2 09:32:40 Injury of finger 83392462 Completed 200003/01/2012 Aydee Clarke NP [address] [place] [address], [address] , [facility] 6 10:22:10 Testicul ar hypofunc tion 928690450 Completed 200603/01/2012 Aydee Clarke NP [address] [place] [address], [address] , [facility] 6 10:22:10 Essentia l hyperten andra 11385866 Completed 200003/01/2012 Aydee Clarke NP [address] [place] [address], [address] , [facility] 6 10:22:10 Diabetes mellitus 87072209 Completed 02/26/2014 Aydee Clarke NP [address] [place] [address], [address] , [facility] 6 10:22:10 Type 2 diabetes mellitus without complica tion 173578193 Active 2006 Not Available [facility] 2 09:32:40 Insect bite to trunk - nonvenom ous 843949559 Completed 03/01/2012 Aydee Clarke NP [address] [place] [address], [address] , [facility] 6 10:22:10 Benign essentia l hyperten andra 4568607 Completed 200603/01/2012 Aydee Clarke NP [address] [place] [address], [address] , [facility] 6 10:22:10 Atrial fibrilla tion 91749414 Completed 03/01/2012 Aydee Clarke NP [address] [place] [address], [address] , [facility] 6 10:22:10 Morbid obesity 876929452 Completed 200603/01/2012 Aydee Clarke NP [address] [place] [address], [address] , [facility] 6 10:22:10 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 2006 Not Available [facility] 2 09:32:40 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 Procedures Surgical History Date Name Laterality Status Provider Name and Address Organization Details Recorded Time 2 Obesity counseling completed Aydee Clarke NP [address] [place] [address], [phone], [facility] 11/03/2021 09:05:56 2 prevention-card iovascular risk reduction counseling completed Aydee Clarke NP [address] [place] [address], [phone], [facility] 11/03/2021 09:05:36 1 Katiana - Colonoscopy completed Mynor Saab MD [address] [place] [address], [phone], [facility] 11/26/2020 07:46:53 1 prevention-card iovascular risk reduction counseling completed Esther Melendez [facility] 10/28/2020 07:54:46 1 prevention-vianey al alcohol misuse screening completed Esther Melendez [facility] 10/28/2020 07:54:46 0 prevention-card iovascular risk reduction counseling completed Esther Melendez [facility] 05/13/2020 10:57:32 0 prevention-vianey al alcohol misuse screening completed Esther Melendez [facility] 05/13/2020 10:57:32 5 Destruction of skin lesion completed Montana Foreman III, MD [address] [place] [address], [phone], [facility] 01/05/2015 10:59:27 Imaging Results Imaging Date Name Status LastModified by Organiz ation Details LastModified Time 11/02/2023 XR, ribs, unilateral completed [facility] ([facility]) [address] , [place], [address], 11/13/2023 10:06:59 Procedure Notes None recorded. Medical [...] /min 97 % 97 % 30 kg/m2 28125.7 7 g 116 mm[Hg] 84 mm[Hg] PHUONG Paul [facility] 3 08:51:13 Date Recorded Body height Body mass index (BMI) Body weight Heart rate Systolic blood pressure Diastolic blood pressure Provider Name and Address Organization Details Last Updated DateTime 3 168.28 cm 30.4 kg/m2 04243.5 5 g 81 /min 114 mm[Hg] 73 mm[Hg] Adrián Worthington Ben [facility] 3 09:28:45 Date Recorded Body height Body mass index (BMI) Body weight Heart rate Oxygen saturation Oxygen saturation in Arterial blood by Pulse oximetry Systolic blood pressure Diastolic blood pressure Provider Name and Address Organization Details Last Updated DateTime 4 168.28 cm 31.8 kg/m2 46492.6 9 g 105 /min 99 % 99 % 150 mm[Hg] 82 mm[Hg] Samantha Galindo [facility] 4 08:15:04 Date Recorded Body height Body mass index (BMI) Body weight Oxygen saturation Oxygen saturation in Arterial blood by Pulse oximetry Heart rate Systolic blood pressure Diastolic blood pressure Systolic blood pressure Diastolic blood pressure Provider Name and Address Organization Details Last Updated DateTime 4 168.28 cm 31.1 kg/m2 54633.9 2 g 100 % 100 % 88 /min 125 mm[Hg] 84 mm[Hg] 133 mm[Hg] 74 mm[Hg] Adrián Worthington [facility] 4 11:24:46 Date Recorded Body height Body mass index (BMI) Body weight Oxygen saturation Oxygen saturation in Arterial blood by Pulse oximetry Heart rate Systolic blood pressure Diastolic blood pressure Provider Name and Address Organization Details Last Updated DateTime 4 168.28 cm 30.1 kg/m2 10013.3 7 g 97 % 97 % 77 /min 104 mm[Hg] 62 mm[Hg] Adrián Worthington [facility] 4 08:26:48 Social History Question Answer Notes LastModified by Organizat ion Details LastModified Time Tobacco Smoking Status Never Smoker checked 05-15-24 Adrián Worthington [facility] 05/15/2024 08:27:56 What Is Your Level Of Alcohol Consumption? Moderate 5 Days A Week- 4 Shot Glasses A Day Vodka -[email or web address] Information not available 05/15/2024 Do You Wear A Helmet When Biking? Yes [email or web address] Information not available 06/24/2015 What Is Your Level Of Caffeine Consumption? None [email or web address] Information not available 05/13/2020 How Much Tobacco Do You Chew? None Information not available 12/31/2012 What Type Of Diet Are You Following? REGULAR Information not available 06/24/2015 Which Illicit Or Recreational Drugs Have You Used? No Denies [email or web address] Information not available 01/15/2018 Do You Or Have You Ever Used E-cigarettes Or Vape? 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 0 Information not available 12/31/2012 Are There Any Guns Present In Your Home? No [email or web address] Information not available 06/24/2015 Live Alone Or With Others? With Others [email or web address] Information not available 06/08/2011 Patient Has Health Care Proxy Signed And In Chart Yes [email or web address] Information not available 11/14/2022 Marital Status [email or web address] Informatio n not available 03/01/2012 Mosquito Repellent Used Routinely Yes Information not available 01/15/2018 What Was The Date Of Your Most Recent Tobacco Screening? 05/11/2022 05/11/22 CJ [email or web address] Information not available 05/11/2022 How Many Children Do You Have? 0 [email or web address] Information not available 06/08/2011 Seat Belts Used Routinely Yes [email or web address] Information not available 06/24/2015 Smoke Alarm In Home Yes Information not available 06/24/2015 Do You Or Have You Ever Used Smokeless Tobacco? Never Used Smokeless Tobacco 10/28/2019 TG [email or web address] Information not available 10/28/2019 How Much Tobacco Do You Smoke? No 05/11/22 CJ [email or web address] Information not available 05/11/2022 What Types Of Sporting Activities Do You Participate In? No Information not available 01/15/2018 General Stress Level Low [email or web address] Information not available 06/24/2015 Do You Use Sunscreen Routinely? Yes Information not available 06/24/2015 How Many Years Have You Smoked Tobacco? 0 [email or web address] Information not available 10/28/2019 Sex: Male Functional [...] Recorded Time Tdap 007 completed Not Available [facility] 06/07/2011 05:21:29 Tdap 007 completed Not Available [facility] 06/07/2011 05:21:29 pneumococcal polysaccharide PPV23 009 completed Not Available [facility] 08/09/2019 02:38:00 Td (adult), 2 Lf tetanus toxoid, preservative free, adsorbed 018 completed Not Available [facility] 08/09/2019 02:22:36 Influenza, split virus, quadrivalent, PF 022 cancelled patient objection Anali Yanez D.O. [address] [place] [address], [phone], [facility] 05/11/2022 11:18:26 Influenza, split virus, quadrivalent, PF 023 cancelled patient objection Nikole Pandya. [address] [place] [address], [phone], [facility] 05/13/2023 15:47:02 COVID-19, mRNA, LNP-S, PF, 30 mcg/0.3 mL dose 021 completed BLAINE Vance, [facility] 06/03/2021 14:14:02 COVID-19, mRNA, LNP-S, PF, 30 mcg/0.3 mL dose 021 [facility] 14:14:12 COVID-19, mRNA, LNP-S, PF, 100 mcg/0.5mL dose or 50 mcg/0.25mL dose 022 [facility]21 14:21:46 Past Encounters Encounter ID Performer Location Encounter Start Date Encounter Closed Date Diagnosis/Indication Diagnosis SNOMED-CT Code Diagnosis ICD10 Code Diagnosis Note [id number] Raven Escobar MD , [facility] [place] [address] [place] [address] 08/28/2000 11:45:00 08/12/2008 02:02:29 [id number] Montana Foreman III, MD , [facility] [place] [place] [address] [place] [address] 09/07/2006 09:25:16 09/07/2006 13:17:47 [id number] [facility] - [address] [place] [address] 09/27/2006 09:47:41 09/27/2006 09:47:45 [id number] Yung Escobar, OD [facility], [address] [place] [address] 09/27/2006 10:01:46 09/27/2006 11:52:26 [id number] Yung Escobar, OD [facility], [address] [place] [address] 10/15/2006 14:29:42 10/15/2006 17:10:27 [id number] Montana Foreman III, MD , [facility] [place] [place] [address] [place] [address] 10/17/2006 08:03:38 10/17/2006 09:08:25 [id number] Montana Foreman III, MD , [facility] [place] [address] [place] [address] 01/09/2007 12:05:24 01/09/2007 14:30:41 [id number] [facility] [place] [facility] - [address] [place] [address] 01/10/2007 07:28:27 01/10/2007 07:28:32 [id number] [facility] [place] - [address] [place] [address] 01/11/2007 08:57:27 01/11/2007 08:57:35 [id number] Montana Foreman III, MD , [facility] [place] [place] [address] [place] [address] 02/01/2007 08:12:35 02/01/2007 10:48:02 [id number] [facility] - [address] [place] [address] 06/11/2007 07:56:03 06/11/2007 07:56:12 [id number] Montana Foreman III, MD , [facility] [place] [place] [address] [place] [address] 06/25/2007 09:01:34 08/12/2008 02:02:29 [id number] ISABELLA [facility], [address] [place] [address] 07/09/2007 09:05:27 07/10/2007 09:23:03 [id number] [facility] - [address] [place] [address] 11/19/2007 10:32:30 11/19/2007 10:32:45 [id number] Montana Foreman III, MD , [facility] [place] [place] [address] [place] [address] 05/12/2009 10:30:12 05/13/2009 08:35:11 [id number] Montana Foreman III, MD , [facility] [place] [place] [address] [place] [address] 06/09/2009 14:41:02 06/10/2009 09:44:59 [id number] Lolis Rincon PA-C [facility], [address] [place] [address] 06/23/2009 08:26:26 06/24/2009 09:26:23 [id number] Lolis Rincon PA-C [facility], [address] [place] [address] 08/19/2009 09:27:35 08/19/2009 14:10:39 [id number] Lolis Rincon PA-C [facility], [address] [place] [address] 11/18/2009 09:29:15 11/18/2009 10:41:01 [id number] Montana Foreman III, MD , [facility] [place] [place] [address] [place] [address] 09/20/2010 12:01:55 09/20/2010 16:23:51 [id number] MD RENU Delong III, [facility] [place] [place] [address] [place] [address] 06/21/2011 09:53:16 06/21/2011 10:13:02 [id number] Montana Foreman III, MD , [facility] [place] [place] [address] [place] [address] 01/23/2012 08:10:14 01/23/2012 09:04:59 [id number] MD RENU Delong III, [facility] [place] OFFICE [address] [place] [address] [place] [address] 03/01/2012 08:33:47 03/01/2012 09:08:14 [id number] Montana Foreman III, MD , [facility] [place] [place] [address] [place] [address] [place] [address] 12/31/2012 11:03:27 01/01/2013 07:35:53 [id number] Montana Foreman III, MD , [facility] [place] [place] [address] [place] [address] [place] [address] 05/19/2013 09:39:48 05/19/2013 09:56:44 Nonvenomous insect bite of multiple sites [id number] MD RENU Delong III, [facility] [place] [place] [address] [place] [address] 08/28/2013 15:02:43 08/28/2013 15:25:22 Benign essential hypertension 4008946 continue to work on diet ,exercisea nd lowering salt intake as discussed Mixed hyperlipidemia 939032597 continue to work on diet and exercise as discussed Adult heal th examination 364790323 see Risk Assessment and Lifestyle Change Counseling section above Counseling [id number] Type 2 nora betes mellitus without complication 596391341 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 972065603 Disorder o f nervous system due to type 2 diabetes mellitus 873227544 [id number] MD RENU Delong III, [facility] [place] [place] [address] [place] [address] 02/26/2014 09:23:19 02/26/2014 09:55:23 Benign essential hypertension 7117175 continue to work on diet ,exercisea nd lowering salt intake as discussed Mixed hyperlipidemia 671835860 continue to work on diet and exercise as discussed Disorder o f nervous system due to type 2 diabetes mellitus 963429707 Foot neuropathy Neoplasm of skin 563079608 [id number] MD RENU Delong III, [facility] [place] [place]ICE [address] [place] [address] 01/05/2015 10:38:43 01/05/2015 10:57:32 Benign essential hypertension 9760092 continue to work on diet, exercise, and lowering salt intake as discussed Mixed hyperlipidemia 165018011 continue to work on diet and exercise as discussed Cholestero l is at goal Type 2 nora betes mellitus without complication 632168347 Actinic keratosis 771297247 Right shoulder x 2 [id number] PABLO Sommers, [facility] [place] [place]ICE [address] [place] [address] 02/23/2015 09:02:42 02/23/2015 09:28:05 Paronychia of toe 559580082 Diabetes mellitus 13678531 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 225221219 [id number] PABLO Sommers [facility] [place] [place] [address] [place] [address] 02/25/2015 09:28:28 02/25/2015 10:08:25 Paronychia of toe 179763766 Diabetes mellitus 69313488 Cellulitis of toe 43829312 [id number] PABLO Sommers [facility] [place] [place] [address] [place] [address] 02/26/2015 09:13:35 02/26/2015 09:42:40 Cellulitis of toe 44485594 Paronychia of toe 085866315 Diabetes mellitus 27056166 [id number] PABLO Sommers [facility] [place] [place] [address] [place] [address] 03/01/2015 09:16:53 03/01/2015 09:27:47 Cellulitis of toe 61280198 resolving will finish remaining 3 days of Bactrim DS bid. Again reviewed sxs of infection and will rto if they reoccur. [id number] PABLO Sommers [facility] [place] [place] [address] [place] [address] 06/24/2015 08:26:01 06/24/2015 09:06:08 Type 2 diabetes mellitus without complication 638156860 E11.9 A1C not at goal of <7.0 Up significan tly from December will increase metformin ER to 1000 mg bid will decrease ETOH, sugar drinks repeat labs 3 months- OV Mixed hyperlipidemia 267 635521 E78.2 Trigs are not at goal Will c/w omega fish oil 4000 mg qd will decrease ETOH and sugary drinks Continue to work on diet and exercise as discussed repeat labs 3 months and f/u OV Benign ess ential hypertension 3257569 I10 Blood pressure at goal . continue to work on diet, exercise, and lowering salt intake as discussed Adult [facility] th examination 952858926 Z00.00 see Risk Assessment and Lifestyle Change Counseling section above HM: Labs UTD Declines flu shot Counseling 174803724 Z71 .9 Alcohol dependence 66166 003 F10.20 discussed reducing ETOH intake discussed impact on blood sugar and triglyceri vi Pain of [facility] 70425875 M25.512 ? impingemen t will try 3-5 days of NSAIDs, alternate heat and ice will call if he reconsider PT Neuropathy due to diabetes mellitus 877702519 E11.40 stable discussed importance of checking feet regularly. [id number] Anali Yanez D.O. , [facility] [place] [place] [address] [place] [address] 12/01/2015 09:44:27 12/01/2015 10:33:57 Type 2 diabetes mellitus without complication 190255153 E11.9 A1C at goal of <7.0 at 5.0 will c/w increase metformin 1000 mg bid c/w glyburide 2.5 mg qd discussed working on diet, ETOH reduction will repeat in 3 months to check for stability OV 6 months Mixed hyperlipidemia 267 108875 E78.2 Trigs much improved down from 699 to 158! great job Will c/w omega fish oil 4000 mg qd will decrease ETOH and sugary drinks Continue to work on diet and exercise as discussed repeat labs 3 months and f/u OV 6 months Benign ess ential hypertension 3739203 I10 Blood pressure at goal . 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 Adjustment disorder 1722 6007 F43.23 dealing with loss of 32 brother (OD) as well taking care of Mom [id number] Jarocho Browne MD , [facility] [place] [place] [address] [place] [address] 01/25/2016 09:18:19 01/25/2016 10:06:23 Infection of toe 640128991 L08.9 in diabetic with neuropathy i informed him that this was a serious infection for him and that we must be observant augmentin for 12 days.he will rto for non response after 48 hrs, or for progressio n or onset fever Neuropathy due to diabetes mellitus 492870211 E11.40 [id number] Anali Yanez D.O. , [facility] [place] [place] [address] [place] [address] 06/28/2016 09:35:15 06/29/2016 09:39:46 Benign essential hypertension 4074037 I10 BP at goalc/w meds Neuropathy due to diabetes mellitus 147191450 E11.40 abn but stable discussed importance of checking feet regularly. Mixed hyperlipidemia 267 695834 E78.2 Trigs up from 158 to 388will c/w fish oildiscuss ed importance of ETOH reduction Type 2 nora betes mellitus without complication 775994555 E11.9 A1C very good at 5.7will get meter d/t ? of low blood sugarsIf getting lows discussed potentiall y reducing glyburideR F on med today Adult heal th examination 121544358 Z00.00 see Risk Assessment and Lifestyle Change Counseling section aboveHM: declines flu shot Counseling 674839766 Z71 .9 Alcohol dependence 41236 003 F10.20 discussed reducing ETOH intake- has not reduced discussed impact on blood sugar and triglyceri vi lhoping new job (no longer at [employer]) will help reduce [id number] Anali Yanez D.O. , [facility] [place] [place] [address] [place] [address] 10/10/2016 08:00:49 10/12/2016 15:46:30 Injury of ribs 750467511 S29.9XXA Alcohol dependence 67871 003 F10.20 Type 2 nora betes mellitus without complication 964363374 E11.9 [id number] Anali SEARS, [facility] [place] [place] [address] [place] [address] 01/09/2017 07:57:33 01/10/2017 09:04:13 Benign essential hypertension 2397269 I10 Blood pressure at goal of <140/90c/w lisinopril BMP utd wnl Mixed hyperlipidemia 267 402295 E78.2 LDL at goal of <100c/w simvastati ncontinue to work on diet and exercise as discussed Type 2 nora betes mellitus without complication 206065562 E11.9 A1C 5.0 with Goal <6.5doing well with more activity d/t jobno med changesmay consider reducing if c/w low A1Crto 6 months for PHA Neuropathy due to diabetes mellitus 966794258 E11.40 abn but stable discussed importance of checking feet regularly. 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 to d/c glyburide and CUT DOWN metformin to 1000 mg once dailywill recheck HbA1c in Jun [id number] Anali SEARS, [facility] [place] [place] [address] [place] [address] 01/15/2018 10:28:34 01/15/2018 11:35:54 Type 2 diabetes mellitus without complication 433473595 E11.9 A1C 5.9 with Goal <6.5doing well with more activity d/t jobno med changesmay consider reducing if c/w low A1Crto 6 months for PHA Alcohol dependence 41189 003 F10.20 stable with slight decrease per pt3-4 drinks 5 x week Benign ess ential hypertension 2179911 I10 Blood pressure at goal of <140/90c/w lisinopril BMP utd wnl Neuropathy due to diabetes mellitus 170230162 E11.40 abn but stable discussed importance of checking feet regularly. Mixed hyperlipidemia 267 665964 E78.2 LDL at goal of <100c/w simvastati ncontinue to work on diet and exercise as discussed Active or passive immunization 921565074 Z23 Diabetic foot ulcer 3710 95057 E11.40 R foot 2nd toe with cellulitis will get xrayget bactrim DS bid x [address] Wang for wound care. [id number] Mitesh Cheng DPM Podiatry, [facility] [address] [facility] [place] [address] 01/30/2018 11:02:26 01/30/2018 14:26:05 Acute osteomyelitis of phalanx of toe 883857257 M86.179 Reviewed right foot xray notable for [...] post op day 0. Pain in toe 974697873 M7 9.674 Ulcer of toe 184235375 L 97.144 [id number] Anali SEARS, [facility] [place] [place] [address] [place] [address] 01/30/2018 15:50:18 01/30/2018 18:24:23 Pre-surgery evaluation 190564118 Z01.818 ekg wnlThe patient is a low risk for perioperat berta cardiovasc ular complicati ons, and may proceed with surgery. Acute oste omyelitis of phalanx of toe 609646260 M86.179 R 2nd toe Benign ess ential hypertension 9061814 I10 Blood pressure at goal of <140/90c/w lisinopril BMP utd wnl Alcohol dependence 82354 003 F10.20 stable with slight decrease per pt3-4 drinks 5 x week [id number] Mitesh Cheng DPM Podiatry, [address] [address] 02/12/2018 10:26:41 02/12/2018 11:12:01 Acute osteomyelitis of phalanx of toe 671471236 M86.179 Reviewed right foot xray notable for erosions of distal aspect of distal phalanx s/p partial amputation of toe. Rx for augmentin sent to pharmacy for 10 day course. Dressing changed. Pain in toe 096830645 M7 9.674 will remove sutures in 1 week. [id number] Mitesh Cheng DPM Podiatry, [address] [address] 02/19/2018 08:51:40 02/19/2018 09:26:45 Acute osteomyelitis of phalanx of toe 462652468 M86.179 Reviewed right foot xray notable for erosions of distal aspect of distal phalanx s/p partial amputation of toe. Pain in toe 251976467 M7 9.674 Sutures removed today. Scab overlying incision removed and site bleeding area identified . Area was cleansed then new dressing was applied to the toe. Pt instructed to take abx to completion . Also to keep toe covered with gauze after daily dressing changes until area is healed up. RTC 2 weeks to re-eval. Ok to return to work tomorrow. [id number] Mitesh Cheng DPM Podiatry, [address] [address] 03/05/2018 08:38:01 03/07/2018 14:19:36 Acute osteomyelitis of phalanx of toe 492513068 M86.179 Reviewed right foot xray notable for erosions of distal aspect of distal phalanx s/p partial amputation of toe. Resolved, patient with clean margins. Pain in toe 022175608 M7 9.674 Right 2nd toe wound all healed up now. Pt ok to get toe wet. Counceled on need for diabetic shoes with custom insoles, as he will need wide width and extra depth shoe to accomodate toe deformitie s. RTC 3 months to re-eval. [id number] Mitesh Cheng DPM Podiatry, [address] [address] 05/07/2018 09:13:31 05/07/2018 09:50:36 Pain in toe 117890240 M79.674 Counseled on need for diabetic shoes with custom insoles, as he will need wide width and extra depth shoe to accomodate toe deformitie s. Orthotics agreement form was completed and signed today. Pt given a copy. We will check with her insurance about coverage. Patient is aware of cost. Cellulitis of toe 834377 04 L03.031 Ulcer of toe 223870561 L 97.509 Verbal consent was obtained. Right [...] in counseling and coordinati on of care. [id number] Mitesh Cheng DPM Podiatry, [address] [address] 05/21/2018 08:45:10 05/21/2018 16:20:21 Pain in toe 231872693 M79.674 Counseled on need for diabetic shoes [...] coordinati on of care. Cellulitis of toe 554020 04 L03.031 resolved Ulcer of toe 082457329 L 97.509 Verbal consent was obtained. Right [...] in counseling and coordinati on of care. [id number] Mitesh Cheng DPM Podiatry, [address] [address] 07/09/2018 09:09:03 07/10/2018 08:20:30 Pain in toe 735085302 M79.674 Pt was informed that breaking into fulltime wear of custom made functional foot orthotic devices should occur over a period of 10 to 14 days. On the day of clam picker the orthotic devices, wear them for [...] coordinati on of care. Cellulitis of toe 615933 04 L03.031 resolved Ulcer of toe 777324304 L 97.509 Verbal consent was obtained. Right 4th toe prepped and sterile instrument ation used to unroof blister draining serous drainage. Wound was dressed wtih betadine and dsd. Pt was given instructio ns to dress it accordingl y each day. Rx for abx sent to pharmacy. RTC 2 weeks. Not to get foot wet. [id number] Anali Yanez D.O. , [facility] [place] [place] [address] [place] [address] 09/06/2018 14:25:20 09/06/2018 15:02:23 Adult health examination 290831562 Z00.00 see Risk Assessment and Lifestyle Change Counseling section aboveHM: labs utdcolonos copy due Counseling 020859257 Z71 .9 Depression screening 171 888417 Z13.89 1 out of 27depressi on screening tool administer ed, entered into emr, scored and discussed, time greater than 7.5 minutes Mixed hyperlipidemia 267 531351 E78.2 LDL at goal of <100c/w simvastati ncontinue to work on diet and exercise as discussed Benign ess ential hypertension 5254830 I10 BP at goal c/w lisinopril continue to work on diet, exercise, and lowering salt intake as discussed Type 2 nora betes mellitus without complication 069626434 E11.9 A1C 5.7 with Goal <6.5still high fasting bs at 157advised to reduce ETOH particular ly shots doing well with more activity d/t jobno med changesmay consider reducing if c/w low A1Crto 6 months for PHA Alcohol dependence 00274 003 F10.20 3-4 everyday after workis doing shotsadvis ed to reduce- pt agrees Neuropathy due to diabetes mellitus 150894835 E11.40 abn but stable discussed importance of checking feet regularly. Screening for malignant neoplasm of colon 303982843 Z12.11 Referral for a DIRECT booked colonoscop y. This patient is a healthy ASA Class 1 or 2 patient (only mild systemic disease), or a STABLE, well controlled insulin dependent diabetic. They do not have serious cardiac disease ie CO/angiopl asty within 1 year, symptomati c CHF; renal failure with CKD 4 or 5; take Coumadin, Plavix, Aggrenox, etc. Amputated toe 653984493 Z89.429 R 2nd toecheck feet daily [id number] Anali Yanez D.O. , [facility] [place] [place] [address] [place] [address] 03/10/2019 15:51:01 03/10/2019 16:23:56 Mixed hyperlipidemia 541037475 E78.2 LDL at goal of <100c/w simvastati ncontinue to work on diet and exercise as discussed Screening for malignant neoplasm of colon 380209526 Z12.11 Referral for a DIRECT booked colonoscop y. This patient is a healthy ASA Class 1 or 2 patient (only mild systemic disease), or a STABLE, well controlled insulin dependent diabetic. They do not have serious cardiac disease ie CO/angiopl asty within 1 year, symptomati c CHF; renal failure with CKD 4 or 5; take Coumadin, Plavix, Aggrenox, etc. Neuropathy due to diabetes mellitus 066070170 E11.40 abn but stable discussed importance of checking feet regularly. no open toe shoesneed to protect feet Amputated toe 246733464 Z89.429 R 2nd toecheck feet daily Benign ess ential hypertension 3603695 I10 BP at goal c/w lisinopril continue to work on diet, exercise, and lowering salt intake as discussed Disorder o f nervous system due to type 2 diabetes mellitus 802168267 E11.49 DM is [id number] 5.8 which is great- at goaldiscus sed importance of foot carealread y had 1 amputation injury to L great toe- no open toe shoes Obesity 989232557 E66.9 BMI 30.5c/w low fat, low carb diet c/w regular activity Injury of toe 205271257 S99.922A likely paronychia of L great toeInterdi git is red, swollen with some warmthno painhx of osteomyeli tis with amputation xray todaystart keflex 500 mg tid x 7 days. Cramp in l ower limb associated with sleep 2875334613 58710 G47.62 advised increasing potassium with banana, sweet potatoeske ep hydrated with electrolyt estry diet tonic prior to bed [id number] Nikole Pandya . MD SEARS, [facility] [place] [place] [address] [place] [address] 10/28/2019 08:30:56 10/28/2019 15:14:19 Low back pain 633521268 M54.5 Low back strain, no alarming symptoms. Will treat with ice, muscle relaxers and NSAIDs. Do not take ibuprofen with meloxicam. Call us with any new neurologic symptoms. 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 [id number] Anali Yanez D.O. , [facility] [place] [place] [address] [place] [address] 05/13/2020 10:57:05 05/14/2020 11:47:45 Adult health examination 313178040 Z00.00 see Risk Assessment and Lifestyle Change Counseling section aboveHM: labs utdcolonos copy due Counseling 877792379 Z71 .9 including cardiovasc ular risk reduction counseling Depression screening 171 561690 Z13.89 0 out of 27 phq 9mood is gooddepres andra screening tool administer ed, entered into emr, scored and discussed, time greater than 7.5 minutes Screening for alcohol abuse 282062123 Z13.39 + auditwill work on decreasein g Amputated toe 618546327 Z89.429 R 2nd toecheck feet daily Type 2 nora betes mellitus without complication 120581852 E11.9 A1C 6.3 up from 5.8 but at Goal <6.5advise d to reduce ETOH particular ly shots doing well with more activity d/t jobno med changesrto 6 months for MM Alcohol dependence 27618 003 F10.20 Audit 43-4 everyday after work - drinking more with covid and less to do at nightis doing shotsadvis ed to reduce- pt agrees Mixed hyperlipidemia 267 015217 E78.2 Cholestero l is at goal LDL is 46Trigs are high at 281- will work on diet and less etoh Continue to work on diet and exercise as discussed Essential hypertension 08436778 I10 cannot check bpwill have him come in for bp checkif not at goal of < 130/80 will increase lisinopril to 20 mg [id number] Anali Yanez D.O. , [facility] [address] [place] [address] 05/27/2020 09:04:01 05/28/2020 15:26:35 [id number] Anali Yanez D.O. [facility], OFFICE [address] [place] [address] 10/28/2020 07:51:21 11/19/2020 16:22:56 Essential hypertension 53074993 I10 cannot check bpwill have him come in for bp checkif not at goal of < 130/80 will increase lisinopril to 20 mg Adult heal th examination 304271306 Z00.00 see Risk Assessment and Lifestyle Change Counseling section above HM: labs utd colonoscop y due Counseling 815081763 Z71 .9 including cardiovasc ular risk reduction counseling Screening for alcohol abuse 973630255 Z13.39 + auditwill work on decreasein g Mixed hyperlipidemia 267 706157 E78.2 Cholestero l is at goal LDL is 50 Trigs are high at 472- will work on diet and less etoh Continue to work on diet and exercise as discussed Amputated toe 424804501 Z89.429 R 2nd toecheck feet daily Type 2 nora betes mellitus without complication 749316768 E11.9 A1C 6.1 at Goal <6.5 advised to reduce ETOH doing well with more activity d/t job no med changes rto 6 months for MM Alcohol dependence 70938 003 F10.20 Audit 7 more with pandemic 3-4 everyday after work - drinking more with covid and less to do at night is doing shots advised to reduce- pt agrees Neuropathy due to diabetes mellitus 114856632 E11.40 abn but stable discussed importance of checking feet regularly. no open toe shoesneed to protect feet [id number] Anali Yanez D.O. , [facility] [place] [address] [place] [address] 11/18/2020 08:16:03 11/19/2020 16:14:08 [id number] Mynor Saab MD [facility], [facility] [address] [place] [address] 11/26/2020 06:44:42 11/26/2020 12:47:20 [id number] Anali Yanez D.O. , [facility] [place] [address] [place] [address] 06/03/2021 14:03:53 06/03/2021 14:47:31 Low back pain 686486024 M54.50 acute low back pain x 4 hoursNo Red FlagsCan use heat/ice to see if its helpfulMot rin for pain as neededTria l muscle relaxants for spasmsAdvi sed if no improvemen t over the next couple of weeks to f/u for PT referral Benign ess ential hypertension 0927173 I10 BP at goalBP goal < 130/80labs up to date [id number] Jarocho Browne MD , [facility] [place] [address] [place] [address] 06/13/2021 08:59:47 06/13/2021 09:45:05 Rib pain 307732515 R07.81 fall to a raised corner of a deck yesterdayn ow with positional muscular pain Left Ant chest wall and axilla. wincingly tender [id number] rib mid axillary line although no ecchymosis or wound is visibleL CTA he has experience d rib injuries before, so understand s duration of activity limiting pain with leftarm and truncal movementsr ec ibuprofen' image fo rproignost ics [id number] Anali Yanez D.O. , [facility] [place] [address] [place] [address] 11/03/2021 08:30:54 11/03/2021 09:02:37 Adult health examination 332021926 Z00.00 see Risk Assessment and Lifestyle Change Counseling section above HM: labs utd colonoscop y 11/26/2020 W/ 5 YR REPEATEYE EXAM 10/23/2020- WILL SCHEDULE Counseling 997044212 Z71 .9 including cardioascu lar risk reduction counseling Depression screening 171 295132 Z13.31 neg phq 9depressio n screening tool administer ed, entered into emr, scored and discussed, time greater than 7.5 minutes Screening for alcohol abuse 163497686 Z13.39 + auditwill work on decreasein g Amputated toe 427718838 Z89.429 R 2nd toecheck feet daily Alcohol dependence 51302 003 F10.20 Audit 7 more with pandemic and loss of dog 3-4 2x week and then on weekends advised to reduce- pt agrees Essential hypertension 38107353 I10 Bp not at goal of < 130/80 but just aboveno med changes Neuropathy due to diabetes mellitus 125214613 E11.40 A1C 6,4- sugars stablec/w metformin 1500 mg qdabn but stable discussed importance of checking feet regularly. no open toe shoesneed to protect feet Mixed hyperlipidemia 267 959699 E78.2 Cholestero l is at goal LDL is 45 Trigs are better 222 Continue to work on diet and exercise as discussed Obesity 040147574 E66.9 BMI 30.6keep low fat, low carb dietc/w regular activity [id number] Anali Yanez D.O. [facility], OFFICE [address] [place] [address] 05/11/2022 09:14:18 05/11/2022 09:53:17 Essential hypertension 89776992 I10 Bp at goal of < 130/80no med changesf/u 3 mos Mixed hyperlipidemia 267 939790 E78.2 Cholestero l is at goal LDL is 45 Trigs 371- will work on better diet Continue to work on diet and exercise as discussed Amputated toe 622846592 Z89.429 R 2nd toecheck feet daily Obesity 160340451 E66.9 BMI 30.6keep low fat, low carb dietc/w regular activity Alcohol dependence 32597 003 F10.20 more with pandemic and loss of dog but had returned to baseline 3-4 2x week Neuropathy due to diabetes mellitus 174673445 E11.40 A1C 6.6 - slight increase from previous but overall sugars stablec/w metformin 1500 mg qdabn but stable discussed importance of checking feet regularly. 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 Genesis Coats [id number] Anali Yanez D.O. [facility], OFFICE [address] [place] [address] 11/10/2022 08:27:54 11/10/2022 09:18:34 Adult health examination 925902402 Z00.00 see Risk Assessment and Lifestyle Change Counseling section above HM: labs utd colonoscop y 11/26/2020 W/ 5 YR REPEATEYE EXAM 10/23/2020- WILL SCHEDULE Depression screening 171 593703 Z13.31 depression screening tool administer edneg phq 9 Screening for alcohol abuse 785762451 Z13.39 Alcohol use screening tool administer edaudit 55 days a week- more on weekends. 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 no open toe shoesneed to protect feet Primary er ectile dysfunction 749887252 N52.9 Disorder o f nervous system due to type 2 diabetes mellitus 535484157 E11.49 A1C 6.4 -c/w metformin 1500 mg qdfully abn foot exam but stable discussed importance of checking feet regularly. 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 271446532 E11.3299 mild OUutd on exam 04/2023fol lowed by Levy yan get exam notes Type 2 nora betes mellitus without complication 356782153 E11.9 A1C 6.5 at Goal <6.5 advised to reduce ETOH doing well with more activity d/t job no med changes rto 6 months for MM Obesity 263561585 E66.9 BMI 30.4keep low fat, low carb dietc/w regular activity Alcohol dependence 22575 003 F10.20 continues with etoh 3-4 days week more on weekends d iscussed impact on EDencourag ed reduction Benign ess ential hypertension 1673165 I10 BP at goal c/w lisinopril continue to work on diet, exercise, and lowering salt intake as discussed Neuropathy due to diabetes mellitus 170641142 E11.40 A1C 6.5c/w metformin 2000 mg qdfully abn foot exam but stable discussed importance of checking feet regularly. no open toe shoesneed to protect feet Mixed hyperlipidemia 267 806415 E78.2 Cholestero l is at goal at 30c/w statinCont inue to work on diet and exercise as discussed Adult heal th examination 692325454 Z00.00 see Risk Assessment and Lifestyle Change Counseling section above HM: labs utd colonoscop y 11/26/2020 W/ 5 YR REPEATEYE EXAM 04/2023- WILL SCHEDULE declines psa Depression screening 171 760659 Z13.31 depression screening tool administer edneg phq 9mood is good Screening for alcohol abuse 443577624 Z13.39 Alcohol use screening tool administer edaudit 8etoh dependence discussed impact on sugars, kidney/braden er fx- understand s Screening for malignant neoplasm of prostate 286576301 Z12.5 If you have a prostate, the [...] expectancy .declines testing this year Rib pain 004028196 R07.8 1 injury 2 weeks agorf of ibuprofen Disorder o f nervous system due to type 2 diabetes mellitus 108069014 E11.49 A1C 6.5c/w metformin 1500 mg qdfully abn foot exam but stable discussed importance of checking feet regularly. 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 629021226 E11.3299 mild OUutd on exam 06/2023fol lowed by [facility] Type 2 nora betes mellitus without complication 471882893 E11.9 A1C 6.9 at Goal <7.0 advised to reduce ETOH doing well with more activity d/t job no med changes rto 6 months for MM Obesity 339298252 E66.9 BMI 30.4keep low fat, low carb dietc/w regular activity Alcohol dependence 90717 003 F10.20 etoh 4-5 x week few drinkswork ing on reducing weekday drinkingun derstands impact on blood sugar, liver Benign ess ential hypertension 6355516 I10 BP at goal c/w lisinopril continue to work on diet, exercise, and lowering salt intake as discussed Neuropathy due to diabetes mellitus 937271581 E11.40 A1C 6.9 up from 6.5is going to focus on diet, less weekday etohc/w metformin 2000 mg qdfully abn foot exam but stable discussed importance of checking feet regularly. no open toe shoesneed to protect feet Mixed hyperlipidemia 267 154572 E78.2 Cholestero l is at goal at 30c/w statinCont inue to work on diet and exercise as discussed Influenza vaccination declined 629257794 Z28.21 Health Concerns Section Related Observation LastModified by Organization Detai ls LastModified Time None Recorded Concern Status LastModified by Organization Details LastModified Time None Recorded Advance Directives Directive None Recorded Payers Encounter Date Sequence Insurance Name Policy Number Policy Padron Covered Member ID Padron Member ID Guarantor Name 11/10/2022 1 [employer] [employer] 111 Timo Meng [id number] Timo Meng 05/10/2023 1 [facility] [employer] [place] 111 iTmo Meng [id number] Timo Meng 11/02/2023 1 [facility] [employer] [place] 111 Timo Meng [id number] Timo Meng 11/13/2023 1 [facility] [employer] 111 Timo Meng [id number] Timo Meng 05/15/2024 1 [facility] [employer] [employer] 111 Timo Meng [id number] Timo Meng Notes Date Note Type Note [...] in exercise capacity Aydee Clarke NP [address] [place], [address], [facility] 11/10/2022 09:20:06 3 text/html VMG DiabetesReported bypatient.Review [...] in exercise capacity saw dentist concern re: [id number] up from 6.4- has beenetoh 3-4 days a week - few after work Nikole Pandya. [address] [place], [address], [facility] 05/13/2023 15:47:09 4 text/html 10/30/2023 injury at [...] better than the ice. Junie Parekh MD [address] [place], [address], [facility] 11/02/2023 09:54:13 4 text/html Physical Exam/MaleReported bypatient.PHAPatient [...] identified barriers to care Context:Diabetes;Peripheral vascular disease (96219) Associated Symptoms:no muscle pain; no dyspnea; no [...] in exercise capacity Aydee Clarke NP [address] [place] [address], [phone], [facility] 11/13/2023 13:01:29 4 text/html VMG DiabetesReported bypatient.Review [...] identified barriers to care Context:Diabetes;Peripheral vascular disease (60977) Associated Symptoms:no muscle pain; no dyspnea; no [...] it to weekends Aydee Clarke NP [address] [place] [address], [phone], [facility] 05/15/2024 08:59:35
--- OUTSIDE RECORDS SUMMARY | 2024-11-20 09:52 | XMS_ITS | Clinical Summary ---
Author Organization [facility] Address [email or web address] [facility] [address] [place] [address] Phone Care Team Providers Care Movie Shot Camera Operator Name Role Phone Orin Joshi NP Primary [...] 10 mg by mouth daily. Active omega 4-bdw-gxv-fish oil 1,000 mg (120 mg-180 mg) Cap [...] Medical Devices Not on file Care Teams Movie Shot Camera Operator Relationship Specialty Start Date End Date Orin Joshi NP [address] [place] [address] PCP - General 11/26/20 Additional Source Comments The information contained in this document represents components of the legal health record. It is not the complete legal health record.[facility]
--- OUTSIDE RECORDS SUMMARY | 2024-11-20 09:52 | XMS_ITS | Encounter Summary ---
Author Organization [facility] Address [address] [facility] [address] [place] [address] Phone Care Team Providers Care Technology Applications Engineer Name Role Phone Anali Yanez DO Primary Care Provider [phone] Orin Joshi NP Primary Care Provider [phone] Encounter Details Date Type Department Care Team (Late st Contact Info) Description 02/04/2018 Procedure Pass [place] Admitting Dept - Virtual Department [address] [place] [address] Social History Tobacco Use Types Packs/Day Years [...] on filedocumented in this encounter Care Teams Technology Applications Engineer Relationship Specialty Start Date End Date Anali Yanez DO [address] [place] [address] PCP - General Internal Medicine 01/31/18 11/25/20 Orin Joshi NP [address] [place] [address] PCP - General 11/26/20 documented as of this encounter Additional Source Comments The information contained in this document represents components of the legal health record. It is not the complete legal health record.[facility]
--- OUTSIDE RECORDS SUMMARY | 2024-11-20 09:52 | XMS_ITS | Data Portability ---
Author Organization [facility], , [facility], OFFICE Address [address] [place] [address] [place] [address] Care Team Providers Care Vacation Sales Advisor Name Role Phone AYDEE CLARKE Primary Care Provider [phone] [facility] Accounting Clerks Supervisor [facility] Dredge Pipeman [phone] [facility] Urologist [phone] Assessment Encounter Date Assessment Date Assessment LastModified [...] Details Appointments LAB Follow-Up 2024 07:30A M [facility] Lab Not available Not available Not available Wellness Visit 30 2024 09:15A Elmer Clarke, PABLO Not available Not available Not available Lab HbA1c (hemoglob in A1c), blood 2022 024 [facility], [address] [facility], [place], [address], 08/09/2023 10:57:33 Referral gastroent erologist referral - per dentist as significa nt erosion of enamel 2022 023 [facility], [address] [place], [address], 09/28/2023 12:31:18 Procedures None recorded. Surgeries None recorded. Imaging XR, ribs, unilatera l - eval for fractured ribs, s/p fall on stone wall on L side 2023 024 [facility] (Imaging), [address] , [place], [address], 11/02/2023 10:18:03 Medication Orders simvastat in 20 mg tablet 2023 024 [facility][id number], [address] [place] [address], [address], 05/15/2024 08:59:23 metformin ER 500 mg tablet,ex tended release 24 hr 2023 024 [facility]0818, [address] [place] [address], [address], 05/15/2024 08:59:23 lisinopri l 10 mg tablet 2023 024 [facility] #0818, [address] [place], [address], 05/15/2024 08:59:22 ibuprofen 800 mg tablet 2023 024 [facility], [address] [place], [address], 11/13/2023 10:26:24 lisinopri l 10 mg tablet 2023 024 [facility] #0818, [address] [place], [address], 11/13/2023 10:26:18 ibuprofen 800 mg tablet 2023 024 [facility] #0818, [address] [place], [address], 11/02/2023 08:27:07 sildenafi l 50 mg tablet 2022 [facility]23 [facility] [address] [place], [address], 11/13/2023 09:54:42 Patient TargetsNo targets recorded. Patient Instructions Encounter Date Encounter Id Patient Instructions Last Modified By Organization Details Last Modified Time 11/10/2022 [id number] high cholesterol lifestyle changes pkeough Not available 11/10/2022 09:18:51 Well Visit 50 to 65: Care Instructions pkeough Not available 11/10/2022 09:18:50 11/13/2023 [id number] high blood pressure: care instructions pkeough Not available 11/13/2023 10:26:16 learning about high blood pressure pkeough Not available 11/13/2023 10:26:16 05/15/2024 [id number] high blood pressure: care instructions pkeough Not available 05/15/2024 08:59:20 learning about high blood pressure pkeough Not available 05/15/2024 08:59:20 Reason for Referral Dredge Pipeman Referral for Erosion of teeth per dentist [...] furth er confi rmati on Not Available [address], [address], 11/02/2022 11:36:14 11/03/19 23 11/02/2022 HGB A1C estimated average glucose 137.0 mg/dL Not Available [address], [address], 11/02/2022 11:36:14 11/03/19 23 11/02/2022 BASIC METAB OLIC PANEL glucose 151 mg/dL 70-100 high Not Available [address], [address], 11/02/2022 15:34:56 11/03/19 23 11/02/2022 BASIC METAB OLIC PANEL BUN 17 mg/dL 7-18 Not Available [address], [address], 11/02/2022 15:34:56 11/03/19 23 11/02/2022 BASIC METAB OLIC PANEL creatinine 1.0 mg/dL 0.8-1. 3 Not Available [address], [address], 11/02/2022 15:34:56 11/03/19 23 11/02/2022 BASIC METAB OLIC PANEL B/C 17.0 ratio Not Available [address], [address], 11/02/2022 15:34:56 11/03/19 23 11/02/2022 BASIC METAB [...] be used in pregn babak. Not Available [address], [address], 11/02/2022 15:34:56 11/03/19 23 11/02/2022 BASIC METAB OLIC PANEL sodium 138 mmol/ L 136-14 5 Not Available [address], [address], 11/02/2022 15:34:56 11/03/19 23 11/02/2022 BASIC METAB OLIC PANEL potassium 4.3 mmol/ L 3.5-5. 1 Not Available [address], [address], 11/02/2022 15:34:56 11/03/19 23 11/02/2022 BASIC METAB OLIC PANEL chloride 102 mmol/ L 96-107 Not Available [address], [address], 11/02/2022 15:34:56 11/03/19 23 11/02/2022 BASIC METAB OLIC PANEL anion gap 9.2 5.0-15 .0 Not Available [address], [address], 11/02/2022 15:34:56 11/03/19 23 11/02/2022 BASIC METAB OLIC PANEL CO2 27 mmol/ L 21-32 Not Available [address], [address], 11/02/2022 15:34:56 11/03/19 23 11/02/2022 BASIC METAB OLIC PANEL calcium 8.9 mg/dL 8.5-10 .3 Not Available [address], [address], 11/02/2022 15:34:56 11/03/1911/02/2022 LIPID PANEL cholesterol 143 mg/dL <200 mg/dl Sudhir able 200-2 39 mg/dl Borde rline High >240 mg/dl High Not Available [address], [address], 11/02/2022 15:34:57 11/03/19 23 11/02/2022 LIPID PANEL triglyceride s 317 mg/dL high <150 mg/dL Viki l 150-1 99 mg/dL Borde rline High 200-4 99 mg/dL High >500 mg/dL Very High Not Available [address], [address], 11/02/2022 15:34:57 11/03/19 23 11/02/2022 LIPID PANEL direct HDL 38 mg/dL <40 mg/dl - Major Risk for CHD >60 mg/dl - Negat berta Risk for CHD Not Available [address], [address], 11/02/2022 15:34:57 11/03/1911/02/2022 DIREC T LDL direct [...] r is not necmeaghan maisha. Not Available [address], [address], 11/02/2022 16:48:05 05/03/2005/03/2023 HGB A1C hemoglobin A1C [...] furth er confi rmati on Not Available [address], [address], 05/03/2023 12:05:19 05/03/2005/03/2023 HGB A1C estimated average glucose 157.1 mg/dL Not Available [address], [address], 05/03/2023 12:05:19 05/03/2005/03/2023 BASIC METAB OLIC PANEL glucose 173 mg/dL 70-100 high Not Available [address], [address], 05/03/2023 12:12:20 05/03/2005/03/2023 BASIC METAB OLIC PANEL BUN 17 mg/dL 7-18 Not Available [address], [address], 05/03/2023 12:12:20 05/03/2005/03/2023 BASIC METAB OLIC PANEL creatinine 1.0 mg/dL 0.8-1. 3 Not Available [address], [address], 05/03/2023 12:12:20 05/03/2005/03/2023 BASIC METAB OLIC PANEL B/C 17.0 ratio Not Available [address], [address], 05/03/2023 12:12:05/03/2005/03/2023 BASIC METAB OLIC PANEL GFR [...] be used in pregn babak. Not Available [address], [address], 05/03/2023 12:12:20 05/03/2005/03/2023 BASIC METAB OLIC PANEL sodium 138 mmol/ L 136-14 5 Not Available [address], [address], 05/03/2023 12:12:20 05/03/2005/03/2023 BASIC METAB OLIC PANEL potassium 4.2 mmol/ L 3.5-5. 1 Not Available [address], [address], 05/03/2023 12:12:20 05/03/2005/03/2023 BASIC METAB OLIC PANEL chloride 102 mmol/ L 96-107 Not Available [address], [address], 05/03/2023 12:12:20 05/03/2005/03/2023 BASIC METAB OLIC PANEL anion gap 11.9 5.0-15 .0 Not Available [address], [address], 05/03/2023 12:12:20 05/03/2005/03/2023 BASIC METAB OLIC PANEL CO2 24 mmol/ L 21-32 Not Available [address], [address], 05/03/2023 12:12:20 05/03/20 23 05/03/2023 BASIC METAB OLIC PANEL calcium 9.0 mg/dL 8.5-10 .3 Not Available [address], [address], 05/03/2023 12:12:20 05/03/2005/03/2023 LIPID PANEL cholesterol 148 mg/dL <200 mg/dl Sudhir able 200-2 39 mg/dl Borde rline High >240 mg/dl High Not Available [address], [address], 05/03/2023 12:12:21 05/03/2005/03/2023 LIPID PANEL triglyceride s 323 mg/dL high <150 mg/dL Viki l 150-1 99 mg/dL Borde rline High 200-4 99 mg/dL High >500 mg/dL Very High Not Available [address], [address], 05/03/2023 12:12:21 05/03/20 23 05/03/2023 LIPID PANEL direct HDL 42 mg/dL <40 mg/dl - Major Risk for CHD >60 mg/dl - Negat berta Risk for CHD Not Available [address], [address], 05/03/2023 12:12:21 05/03/20 23 05/03/2023 DIREC T [...] r is not jose ferrera. Not Available [address], [address], 05/03/2023 14:38:05 05/03/20 23 05/03/2023 MICRO ALBUM IN/CR EATIN INE RATIO PANEL , URINE microalbumin 8.0 mg/L 1.3-20 .0 Not Available [address], [address], 05/03/2023 15:48:25 05/03/20 23 05/03/2023 MICRO ALBUM IN/CR EATIN INE RATIO PANEL , URINE creatinine urine 139.3 mg/dL 30.0-1 25.0 high Not Available [address], [address], 05/03/2023 15:48:25 05/03/20 23 05/03/2023 MICRO ALBUM IN/CR EATIN INE RATIO PANEL , URINE microalb/cre at ratio 5.7 mg/g_ creat 0.0-29 .0 Not Available [address], [address], 05/03/2023 15:48:25 08/09/19 24 08/09/2023 BASIC METAB OLIC PANEL glucose 168 mg/dL 70-100 high Not Available [address], [address], 08/09/2023 10:55:05 08/09/19 24 08/09/2023 BASIC METAB OLIC PANEL BUN 17 mg/dL 7-18 Not Available [address], [address], 08/09/2023 10:55:05 08/09/19 24 08/09/2023 BASIC METAB OLIC PANEL creatinine 1.1 mg/dL 0.8-1. 3 Not Available [address], [address], 08/09/2023 10:55:05 08/09/19 24 08/09/2023 BASIC METAB OLIC PANEL B/C 15.5 ratio Not Available [address], [address], 08/09/2023 10:55:05 08/09/19 24 08/09/2023 [...] be used in pregn babak. Not Available [address], [address], 08/09/2023 10:55:05 08/09/19 24 08/09/2023 BASIC METAB OLIC PANEL sodium 139 mmol/ L 136-14 5 Not Available [address], [address], 08/09/2023 10:55:05 08/09/19 24 08/09/2023 BASIC METAB OLIC PANEL potassium 4.3 mmol/ L 3.5-5. 1 Not Available [address], [address], 08/09/2023 10:55:05 08/09/19 24 08/09/2023 BASIC METAB OLIC PANEL chloride 102 mmol/ L 96-107 Not Available [address], [address], 08/09/2023 10:55:05 08/09/19 24 08/09/2023 BASIC METAB OLIC PANEL anion gap 10.8 5.0-15 .0 Not Available [address], [address], 08/09/2023 10:55:05 08/09/19 24 08/09/2023 BASIC METAB OLIC PANEL CO2 26 mmol/ L 21-32 Not Available [address], [address], 08/09/2023 10:55:05 08/09/19 24 08/09/2023 BASIC METAB OLIC PANEL calcium 8.9 mg/dL 8.5-10 .3 Not Available [address], [address], 08/09/2023 10:55:05 08/09/19 24 08/09/2023 HGB A1C [...] furth er confi rmati on Not Available [address], [address], 08/09/2023 10:57:32 08/09/19 24 08/09/2023 HGB A1C estimated average glucose 157.1 mg/dL Not Available [address], [address], 08/09/2023 10:57:32 10/25/19 24 10/25/2023 HGB A1C [...] furth er confi rmati on Not Available [address], [address], 10/25/2023 11:15:39 10/25/19 24 10/25/2023 HGB A1C estimated average glucose 139.9 mg/dL Not Available [address], [address], 10/25/2023 11:15:39 10/25/19 24 10/25/2023 BASIC METAB OLIC PANEL glucose 149 mg/dL 70-100 high Not Available [address], [address], 10/25/2023 16:27:42 10/25/19 24 10/25/2023 BASIC METAB OLIC PANEL BUN 21 mg/dL 7-18 high Not Available [address], [address], 10/25/2023 16:27:42 10/25/19 24 10/25/2023 BASIC METAB OLIC PANEL creatinine 1.0 mg/dL 0.8-1. 3 Not Available [address], [address], 10/25/2023 16:27:42 10/25/19 24 10/25/2023 BASIC METAB OLIC PANEL B/C 21.0 ratio Not Available [address], [address], 10/25/2023 16:27:42 10/25/19 24 10/25/2023 BASIC METAB [...] be used in pregn babak. Not Available [address], [address], 10/25/2023 16:27:42 10/25/19 24 10/25/2023 BASIC METAB OLIC PANEL sodium 139 mmol/ L 136-14 5 Not Available [address], [address], 10/25/2023 16:27:42 10/25/19 24 10/25/2023 BASIC METAB OLIC PANEL potassium 4.4 mmol/ L 3.5-5. 1 Not Available [address], [address], 10/25/2023 16:27:42 10/25/19 24 10/25/2023 BASIC METAB OLIC PANEL chloride 101 mmol/ L 96-107 Not Available [address], [address], 10/25/2023 16:27:42 10/25/19 24 10/25/2023 BASIC METAB OLIC PANEL anion gap 12.9 5.0-15 .0 Not Available [address], [address], 10/25/2023 16:27:42 10/25/19 24 10/25/2023 BASIC METAB OLIC PANEL CO2 25 mmol/ L 21-32 Not Available [address], [address], 10/25/2023 16:27:42 10/25/19 24 10/25/2023 BASIC METAB OLIC PANEL calcium 9.1 mg/dL 8.5-10 .3 Not Available [address], [address], 10/25/2023 16:27:42 10/25/19 24 10/25/2023 LIPID PANEL cholesterol 113 mg/dL <200 mg/dl Sudhir able 200-2 39 mg/dl Borde rline High >240 mg/dl High Not Available [address], [address], 10/25/2023 16:27:43 10/25/19 24 10/25/2023 LIPID PANEL triglyceride s 205 mg/dL <150 mg/dL Viki l 150-1 99 mg/dL Borde rline High 200-4 99 mg/dL High >500 mg/dL Very High Not Available [address], [address], 10/25/2023 16:27:43 10/25/19 24 10/25/2023 LIPID PANEL direct HDL 42 mg/dL <40 mg/dl - Major Risk for CHD >60 mg/dl - Negat berta Risk for CHD Not Available [address], [address], 10/25/2023 16:27:43 10/25/19 24 10/25/2023 LDL - [...] r is not terrimeaghan maisha. Not Available [address], [address], 10/25/2023 16:27:44 10/25/19 24 10/26/2023 IMMUN OGLOB ULIN A immunoglobul in A 125 mg/dL 47-310 normal Not Available [facility] [address], [address], 10/26/2023 16:02:40 10/25/19 24 10/26/2023 TISSU E TRANS GLUTA SANDRINE E AB, IGA tissue transglutami nase Ab, IgA <1.0 U/mL normal Value Inter preta tion ----- ----- ----- ---- <15.0 Antib tobias not detec audelia > or = 15.0 Antib tobias detec audelia Not Available [facility] [address], [address], 10/26/2023 16:02:41 01/02/20 24 01/02/2024 POC GLU POC glu 179 70 - 100 high Not Available [facility] [address] [place] [address], [address], 01/04/2024 09:10:15 05/08/20 24 05/08/2024 HGB A1C [...] furth er confi rmati on Not Available [address], [address], 05/08/2024 11:51:31 05/08/20 24 05/08/2024 HGB A1C estimated average glucose 151.3 mg/dL Not Available [address], [address], 05/08/2024 11:51:31 05/08/20 24 05/08/2024 MICRO ALBUM IN/CR EATIN INE RATIO PANEL , URINE microalbumin 21.0 mg/L 1.3-20 .0 high Not Available [address], [address], 05/08/2024 14:38:50 05/08/2005/08/2024 MICRO ALBUM IN/CR EATIN INE RATIO PANEL , URINE creatinine urine 121.7 mg/dL 30.0-1 25.0 Not Available [address], [address], 05/08/2024 14:38:50 05/08/20 24 05/08/2024 MICRO ALBUM IN/CR EATIN INE RATIO PANEL , URINE microalb/cre at ratio 17.3 mg/g_ creat 0.0-29 .0 Not Available [address], [address], 05/08/2024 14:38:50 05/08/20 24 05/09/2024 BASIC METAB OLIC PANEL glucose 182 mg/dL 70-100 high Not Available [address], [address], 05/09/2024 15:14:00 05/08/20 24 05/09/2024 BASIC METAB OLIC PANEL BUN 15 mg/dL 7-18 Not Available [address], [address], 05/09/2024 15:14:00 05/08/20 24 05/09/2024 BASIC METAB OLIC PANEL creatinine 1.1 mg/dL 0.8-1. 3 Not Available [address], [address], 05/09/2024 15:14:00 05/08/20 24 05/09/2024 BASIC METAB OLIC PANEL B/C 13.6 ratio Not Available [address], [address], 05/09/2024 15:14:00 05/08/20 24 05/09/2024 BASIC METAB [...] be used in pregn babak. Not Available [address], [address], 05/09/2024 15:14:00 05/08/20 24 05/09/2024 BASIC METAB OLIC PANEL sodium 140 mmol/ L 136-14 5 Not Available [address], [address], 05/09/2024 15:14:00 05/08/20 24 05/09/2024 BASIC METAB OLIC PANEL potassium 4.9 mmol/ L 3.5-5. 1 Not Available [address], [address], 05/09/2024 15:14:00 05/08/20 24 05/09/2024 BASIC METAB OLIC PANEL chloride 101 mmol/ L 96-107 Not Available [address], [address], 05/09/2024 15:14:00 05/08/20 24 05/09/2024 BASIC METAB OLIC PANEL anion gap 9.0 5.0-15 .0 Not Available [address], [address], 05/09/2024 15:14:00 05/08/20 24 05/09/2024 BASIC METAB OLIC PANEL CO2 30 mmol/ L 21-32 Not Available [address], [address], 05/09/2024 15:14:00 05/08/20 24 05/09/2024 BASIC METAB OLIC PANEL calcium 9.5 mg/dL 8.5-10 .3 Not Available [address], [address], 05/09/2024 15:14:00 11/02/19 24 11/02/2023 XR, ribs, unila teral CLINIC AL HISTOR Y: Left-s ided chest wall pain after a fall. Histor y of old fractu res. TECHNI QUE: At least 3 views of the left ribs are obtain ed. COMPAR SANDEE: 2020, 017 FINDIN GS: There are novelties sales representative ior and latera l fractu res of the left fourth , fifth, sixth ribs. There are fractu re along the latera l aspect of the left sevent h, eighth and ninth ribs. There are fractu re of along the novelties sales representative ior and beata latera l aspect s [...] ended. Vinh Thurston ana: Heladio Ibrahim ms [facility] (Imaging) [address], [place], [address], 11/13/2023 10:06:59 Result Notes None recorded. Procedures Surgical History Date Name Laterality Status Provider Name and Address Organization Details Recorded Time 01/02/2024 Katiana - EGD completed Mynor Saab MD [address] [place] [address], [id number] [facility] [place]/02/[place] 07:51:46 Imaging Results Imaging Date Name Status LastModified by Organiz ation Details LastModified Time 11/02/2023 XR, ribs, unilateral completed [facility] ([facility]) [address], [place], [address], 11/13/2023 10:06:59 Procedure Notes None recorded. Medical [...] You Wear A Helmet When Biking? Yes [email or web address] Information not available 06/24/2015 What Is Your Level Of Caffeine Consumption? None [email or web address] Information not available 05/13/2020 How Much Tobacco Do You Chew? None Information not available 12/31/2012 What Type Of Diet Are You Following? REGULAR [email or web address] Information not available 06/24/2015 Which Illicit Or Recreational Drugs Have You Used? No Denies IVDU Information not available 01/15/2018 Do You Or Have You Ever Used E-cigarettes Or Vape? 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 0 Information not available 12/31/2012 Are There Any Guns Present In Your Home? No [email or web address] Information not available 06/24/2015 Live Alone Or With Others? With Others [email or web address] Information not available 06/08/2011 Patient Has Health Care Proxy Signed And In Chart Yes [email or web address] Information not available 11/14/2022 Marital Status [email or web address] Informatio n not available 03/01/2012 Mosquito Repellent Used Routinely Yes Information not available 01/15/2018 What Was The Date Of Your Most Recent Tobacco Screening? 05/11/2022 05/11/22 CJ [email or web address] Information not available 05/11/2022 How Many Children Do You Have? 0 [email or web address] Information not available 06/08/2011 Seat Belts Used Routinely Yes [email or web address] Information not available 06/24/2015 Smoke Alarm In Home Yes [email or web address] Information not available 06/24/2015 Do You Or Have You Ever Used Smokeless Tobacco? Never Used Smokeless Tobacco 10/28/2019 TG [email or web address] Information not available 10/28/2019 How Much Tobacco Do You Smoke? No 05/11/22 CJ [email or web address] Information not available 05/11/2022 What Types Of Sporting Activities Do You Participate In? No Information not available 01/15/2018 General Stress Level Low [email or web address] Information not available 06/24/2015 Do You Use Sunscreen Routinely? Yes [email or web address] Information not available 06/24/2015 How Many Years Have You Smoked Tobacco? 0 [email or web address] Information not available 10/28/2019 Sex: Male Functional [...] SNOMED-CT Code Diagnosis ICD10 Code Diagnosis Note [id number] Raven Escobar MD , [facility], OFFICE [address] [place] [address] 08/28/2000 11:45:00 08/12/2008 02:02:29 [id number] Montana Foreman III, MD , [facility], OFFICE [address] [place] [address] 09/07/2006 09:25:16 09/07/2006 13:17:47 [id number] [facility] LAB LAB - [address] [place] [address] 09/27/2006 09:47:41 09/27/2006 09:47:45 [id number] Yung Escobar, OD [facility], [address] [address] 09/27/2006 10:01:46 09/27/2006 11:52:26 [id number] Yung Escobar, OD [facility], [address] [address] 10/15/2006 14:29:42 10/15/2006 17:10:27 [id number] Montana Foreman III, MD , [facility], OFFICE [address] [place] [address] 10/17/2006 08:03:38 10/17/2006 09:08:25 [id number] Montana Foreman III, MD , [facility], OFFICE [address] [place] [address] 01/09/2007 12:05:24 01/09/2007 14:30:41 [id number] [facility] - [address] [place] [address] 01/10/2007 07:28:27 01/10/2007 07:28:32 [id number] [facility] - [address] [place] [address] 01/11/2007 08:57:27 01/11/2007 08:57:35 [id number] Montana Foreman III, MD , [facility], OFFICE [address] [place] [address] 02/01/2007 08:12:35 02/01/2007 10:48:02 [id number] [facility] - [address] [place] [address] 06/11/2007 07:56:03 06/11/2007 07:56:12 [id number] Montana Foreman III, MD , [facility], OFFICE [address] [place] [address] 06/25/2007 09:01:34 08/12/2008 02:02:29 [id number] Jaziel Love DPM Podiatry, [address] [place] [address] 07/09/2007 09:05:27 07/10/2007 09:23:03 [id number] [facility] - [address] [place] [address] 11/19/2007 10:32:30 11/19/2007 10:32:45 [id number] Montana Foreman III, MD , [facility], OFFICE [address] [place] [address] 05/12/2009 10:30:12 05/13/2009 08:35:11 [id number] Montana Foreman III, MD , [facility], OFFICE [address] [place] [address] 06/09/2009 14:41:02 06/10/2009 09:44:59 [id number] Lolis Rincon PA-C Endocrino logy, [address] [place] [address] 06/23/2009 08:26:26 06/24/2009 09:26:23 [id number] Lolis Rincon PA-C Endocrino logy, [facility] [address] [place] [address] 08/19/2009 09:27:35 08/19/2009 14:10:39 [id number] Lolis Rincon PA-C Endocrino logy, [facility] [address] [place] [address] 11/18/2009 09:29:15 11/18/2009 10:41:01 [id number] Montana Foreman III, MD , [facility], OFFICE [address] [place] [address] [place] [address] 09/20/2010 12:01:55 09/20/2010 16:23:51 [id number] Montana Foreman III, MD , [facility], OFFICE [address] [place] [address] [place] [address] 06/21/2011 09:53:16 06/21/2011 10:13:02 [id number] Montana Foreman III, MD , [address] [place] [address] 01/23/2012 08:10:14 01/23/2012 09:04:59 [id number] Montana Foreman III, MD , [address] [place] [address] 03/01/2012 08:33:47 03/01/2012 09:08:14 [id number] Montana Foreman III, MD , [address] [place] [address] 12/31/2012 11:03:27 01/01/2013 07:35:53 [id number] Montana Foreman III, MD , [address] [place] [id number] 1 05/19/2013 09:39:48 05/19/2013 09:56:44 [id number] MD RENU Delong III, [address] [place] [address] 1 08/28/2013 15:02:43 08/28/2013 15:25:22 [id number] MD RENU Delong III, [address] [place] [id number] 1 02/26/2014 09:23:19 02/26/2014 09:55:23 [id number] MD RENU Delong III, [facility] [place], OFFICE [address] [place] [address] [place] [address] 1 01/05/2015 10:38:43 01/05/2015 10:57:32 [id number] PABLO Sommers, [facility] [place], OFFICE [address] [place] [address] [place] [address] 1 02/23/2015 09:02:42 02/23/2015 09:28:05 [id number] PABLO Sommers, [facility] [place], OFFICE [address] [place] [address] [place] [address] 1 02/25/2015 09:28:28 02/25/2015 10:08:25 [id number] PABLO Sommers, [facility] [place], [address] [place] [id number] 1 02/26/2015 09:13:35 02/26/2015 09:42:40 [id number] PABLO Sommers, [facility] [place], [address] [place] [id number] 1 03/01/2015 09:16:53 03/01/2015 09:27:47 [id number] PABLO Sommers, [facility] [place], [address] [place] [id number] 1 06/24/2015 08:26:01 06/24/2015 09:06:08 [id number] Anali Yanez D.O. , [address] [place] [id number] 1 12/01/2015 09:44:27 12/01/2015 10:33:57 [id number] MD RENU Barreto, [facility] [place], [address] [place] [id number] 1 01/25/2016 09:18:19 01/25/2016 10:06:23 [id number] Anali SEARS, [address] [place] [address] 06/28/2016 09:35:15 06/29/2016 09:39:46 [id number] Anali SEARS, [address] [place] [address] 10/10/2016 08:00:49 10/12/2016 15:46:30 [id number] Anali Yanez D.O. [facility], OFFICE [address] [place], [place] [address] 01/09/2017 07:57:33 01/10/2017 09:04:13 [id number] Anali Ellis.O. [facility], OFFICE [address] [place], [place] [address] 02/09/2017 11:28:09 02/09/2017 12:27:37 [id number] Anali Ellis.Matt [facility], OFFICE [address] [place], [place] [address] 01/15/2018 10:28:34 01/15/2018 11:35:54 [id number] Jobaudilio-Radha Prosper, DPM Podiatry, [address] [place] [address] 01/30/2018 11:02:26 01/30/2018 14:26:05 [id number] Anali Yanez D.O. [facility] [place], OFFICE [address] [place], [place] [address] 01/30/2018 15:50:18 01/30/2018 18:24:23 [id number] Joudy-Radha Dinnall, DPM Podiatry, [address] [address] 02/12/2018 10:26:41 02/12/2018 11:12:01 [id number] Joudy-Radha Dinnall, DPM Podiatry, [facility] [address] [place] [address] 02/19/2018 08:51:40 02/19/2018 09:26:45 [id number] Joudy-Radha Dinnall, DPM Podiatry, [facility] [address] [place] [address] 03/05/2018 08:38:01 03/07/2018 14:19:36 [id number] Joudy-Radha Dinnall, DPM Podiatry, [address] [address] 05/07/2018 09:13:31 05/07/2018 09:50:36 [id number] Joudy-Radha Dinnall, DPM Podiatry, [address] [address] 05/21/2018 08:45:10 05/21/2018 16:20:21 [id number] Mitesh Cheng DPM Podiatry, [facility] [address] [place] [address] 07/09/2018 09:09:03 07/10/2018 08:20:30 [id number] Anali Furcolo D.O. [address] [place] [address] 1 09/06/2018 14:25:20 09/06/2018 15:02:23 [id number] Anali Furcolo D.O. [address] [place] [address] 1 03/10/2019 15:51:01 03/10/2019 16:23:56 [id number] Nikole Mcnair MD [address] [place] [address] 1 10/28/2019 08:30:56 10/28/2019 15:14:19 [id number] Anali Furcolo D.O. [address] [place] [address] 1 05/13/2020 10:57:05 05/14/2020 11:47:45 [id number] Anali Furcolo D.O. [address] [place] [address] 1 05/27/2020 09:04:01 05/28/2020 15:26:35 [id number] Anali Furcolo D.O. [address] [place] [address] 1 10/28/2020 07:51:21 11/19/2020 16:22:56 [id number] Anali Furcolo D.O. [address] [place] [address] 11/18/2020 08:16:03 11/19/2020 16:14:08 [id number] Mynor Saab MD [facility], [facility] [address] [place] [address] 11/26/2020 06:44:42 11/26/2020 12:47:20 [id number] Anali Furcolo D.O. FP, [place] [address] [place] [address] 06/03/2021 14:03:53 06/03/2021 14:47:31 [id number] Jarocho Browne MD [address] [place] [address] 1 06/13/2021 08:59:47 06/13/2021 09:45:05 [id number] Anali Yanez D.O. [address] [place] [address] 1 11/03/2021 08:30:54 11/03/2021 09:02:37 [id number] Anali Yanez D.O. [address] [place] [address] 1 05/11/2022 09:14:18 05/11/2022 09:53:17 [id number] Anali Yanez D.O. [address] [place] [address] 1 11/10/2022 08:27:54 11/10/2022 09:18:34 [id number] Jarocho Browne MD [address] [place] [address] 1 05/10/2023 09:15:35 05/14/2023 08:33:22 [id number] Mynor Saab MD [address] [place] [address] 1 01/02/2024 06:45:56 01/02/2024 10:51:16 [id number] Nikole Pandya . [address] [place] [address] 1 11/02/2023 08:07:58 11/02/2023 10:18:03 [id number] Jarocho Browne MD [address] [place] [address] 1 11/13/2023 09:46:52 11/13/2023 13:24:43 [id number] Jarocho Browne MD [address] [place] [address] 1 05/15/2024 08:13:22 05/15/2024 10:18:36 Health Concerns Section Related Observation LastModified by Organization Detai ls LastModified Time None Recorded Concern Status LastModified by Organization Details LastModified Time None Recorded Advance Directives Directive None Recorded Payers Encounter Date Sequence Insurance Name Policy Number Policy Padron Covered Member ID Padron Member ID Guarantor Name 11/10/2022 1 [place] [employer] [employer] 111 Timo Meng [id number] Timo Meng 05/10/2023 1 [place] 111 Timo Meng [id number] Timo Meng 11/02/2023 1 [place] 111 Timo Meng [id number] Timo Meng 11/13/2023 1 [place] 111 Timo Meng [id number] Timo Meng 05/15/2024 1 [place] 111 Timo Meng [id number] Timo Meng
--- OUTSIDE RECORDS SUMMARY | 2024-11-20 09:52 | XMS_ITS | Encounter Summary ---
Author Organization [facility] Address [address] [facility] [address] [place] [id number] Phone Care Team Providers Care Group Fitness Instructor Name Role Phone JobAnali bennett Blaze MENA Primary Care Provider [phone] Orin Joshi NP Primary Care Provider [phone] Encounter Details Date Type Department Care Team (Latest Contact Info) Description 11/23/2020 Transcribe Orders Virtual Department [address] [place] [id number] Mynor Saab MD [address] [place] [id number] [email or web address] Pre-procedure lab exam (Primary Dx) Social History [...] Order (11/23/2020 1:55 PM EDT) COVID-19 Comment [id number] [facility] COVID Testing Status Sent to [facility] Lab [facility] 11/23/2020 1:55 PM EDT 11/23/2020 4:51 PM EDT Mynor Saab MD BODY FLUIDS AND STOO LS ORDERABLES [facility] [address] [place] [address] documented in this encounter Visit Diagnoses Diagnosis Pre-procedure lab exam- Primary Pre-procedural laboratory examination documented in this encounter Care Teams Group Fitness Instructor Relationship Specialty Start Date End Date Anali Yanez DO [address] [place] [address] PCP - General Internal Medicine 01/31/18 11/25/20 Orin Joshi NP [address] [place] [id number] PCP - General 11/26/20 documented as of this encounter Additional Source Comments The information contained in this document represents components of the legal health record. It is not the complete legal health record.[facility]
[2024-11-25 05:23] LABS: Testosterone, Total 273 ng/dL (250-1100)
== END 2024-11-20 09:11 | disposition home or self-care (01) ==
LOC: HO.10HDL 09:10
PROVIDERS: Visit Provider Urology
DX: R79.89 Other specified abnormal findings of blood chemistry (principal)
CPT/HCPCS: 36415; 84403

== ENCOUNTER 2024-11-26 08:32 | Outpatient (AMB) | payer BC, SELFPAY ==
[2024-11-26 08:36] VITALS: BMI 29.8
--- NOTE | 2024-11-26 08:36 | MHC.OFFVIS ---
Vital Signs 11/26/24 08:36 Height 5 ft 7 in Weight 190 lb BMI 29.8 Intake Visit Reasons: PO RT DETENTION release 11/11/24 AR Intake Note: Timo 54 yr old male presents today for his PO visit for his right DETENTION release DOS 11/11/[address] Kaiser. Sutures removed and steri strips applied. States he is doing well with mild pain and discomfort. Allergies No Known Allergies Allergy (Verified 11/26/24 08:46) HPI HPI PO RT DETENTION release 11/11/24 AR: Details: Timo is a 54 year old right hand dominant man who returns S/P right 1st dorsal compartment release, DOS: 11/11/24. He says he is doing well and his pain has improved. He is happy with the results of his surgery. 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 He reports a prior dog bite injury to his right hand, DOI: 01/14/24. He says this went on to heal well. [facility] Medical History (Updated 11/11/24 @ 12:16 by Liudmila Park RN) Erectile dysfunction Hypercholesteremia Diabetes Hypertension Surgical History Hx of colonoscopy Social History Are you a primary ocular care technologist to a significant other at home: No Do you presently have visiting nurse or other home services: No Patient Tobacco Use Status: Never used Tobacco Current occupation: [employer] Review of Systems Const All systems reviewed & are unremarkable except as noted in HPI and below Physical Exam Vital Signs: BMI result Body Mass Index 29.8 Const General: no acute distress and alert Orientation/consciousness: patient oriented x3 Neuro General: patient oriented x3 Extrem Other: The patient was alert oriented and in no acute distress The incision is healing well with no erythema drainage or evidence of infection. Sutures removed and Steri-Strips applied He can make a fist and extend all his digits Improved Yakov test today Sensation is intact Cap refill is brisk Psych Appearance: grossly normal Affect: normal affect Attitude: cooperative Assessment & Plan Assessment & Plan (1) De Quervain's tenosynovitis, right: Code(s): M65.4 - Radial styloid tenosynovitis [de Quervain] Category: Medical Plan Assessment & Plan: 1. 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 He was given a note for work to return on light duty, with a 2lb weight limit with his RUE for 4 weeks, effective 11/28/24. If he finds this too difficult or painful, he can contact the clinic to remain out of work until his follow up appointment. He will follow up in 4 weeks to see how he is doing 2. Right hand dog bite DOI: 01/14/24 Managed at [facility] Med No complaints today Scribed for Meaghan Kaiser MD by Ermias Sheffield, medical practitioners, on 11/26/24 at 8:45 AM, EST. Coding Level of Care Code Global (94454) Diagnoses De Quervain's tenosynovitis, right M65.4
--- OUTSIDE RECORDS SUMMARY | 2024-11-26 08:48 | XMS_ITS | Clinical Summary ---
Author Organization [facility] Address [address] [facility] [address] [place] [phone] Phone Care Team Providers Care Explosives Truck Driver Name Role Phone Orin Joshi NP [...] 10 mg by mouth daily. Active omega 0-unv-gpb-fish oil 1,000 mg (120 mg-180 mg) Cap [...] Medical Devices Not on file Care Teams Explosives Truck Driver Relationship Specialty Start Date End Date Orin Joshi NP [address] [place] [id number] PCP - General 11/26/20 Additional Source Comments The information contained in this document represents components of the legal health record. It is not the complete legal health record.[facility]
--- OUTSIDE RECORDS SUMMARY | 2024-11-26 08:48 | XMS_ITS | Data Portability ---
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 [facility] Urologist Assessment Encounter Date Assessment [...] Details Appointments LAB Follow-Up 2024 07:30A M [facility] Not available Not available Not available Wellness Visit 30 2024 09:15A M Aydee Clarke PABLO Not available Not available Not available Lab HbA1c (hemoglob in A1c), blood 2022 024 [facility], [address] [facility], [place], [address], 08/09/2023 10:57:33 Referral gastroent erologist referral - per dentist as significa nt erosion of enamel 2022 023 [facility], [address] [place], [address], 09/28/2023 12:31:18 Procedures None recorded. Surgeries None recorded. Imaging XR, ribs, unilatera l - eval for fractured ribs, s/p fall on stone wall on L side [address] [facility] (Imaging), [address] , [place], [address], 11/02/2023 10:18:03 Medication Orders simvastat in 20 mg tablet 2023 024 [facility]acy #[id number], [address] [place] [address], [address], 05/15/2024 08:59:23 metformin ER 500 mg tablet,ex tended release 24 hr 2023 024 [facility]acy #0818, [address] [place], [address], 05/15/2024 08:59:23 lisinopri l 10 mg tablet 2023 024 [facility]acy #0818, [address] [place], [address], 05/15/2024 08:59:22 ibuprofen 800 mg tablet 2023 024 [facility] [address] [place], [address], 11/13/2023 10:26:24 lisinopri l 10 mg tablet 2023 024 [facility]acy #0818, [address] [place], [address], 11/13/2023 10:26:18 ibuprofen 800 mg tablet 2023 024 [facility]acy #0818, [address] [place], [address], 11/02/2023 08:27:07 sildenafi l 50 mg tablet 2022 [facility]23 [facility] [address] [place], [address], 11/13/2023 09:54:42 Patient TargetsNo targets recorded. Patient Instructions Encounter Date Encounter Id Patient Instructions Last Modified By Organization Details Last Modified Time 11/10/2022 [id number] high cholesterol lifestyle changes pkeough Not available 11/10/2022 09:18:51 Well Visit 50 to 65: Care Instructions pkeough Not available 11/10/2022 09:18:50 11/13/2023 [id number] high blood pressure: care instructions pkeough Not available 11/13/2023 10:26:16 learning about high blood pressure pkeough Not available 11/13/2023 10:26:16 05/15/2024 [id number] high blood pressure: care instructions pkeough Not available 05/15/2024 08:59:20 learning about high blood pressure pkeough Not available 05/15/2024 08:59:20 Reason for Referral Fiber Glass 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 3 Not Available [address], [address], 11/02/2022 15:34:56 11/03/19 23 11/02/2022 BASIC METAB OLIC PANEL B/C 17.0 ratio Not Available [address], [address], 11/02/2022 15:34:56 11/03/19 23 11/02/2022 BASIC METAB [...] be used in pregn babak. Not Available [address], [address], 11/02/2022 15:34:56 11/03/19 23 11/02/2022 BASIC METAB OLIC PANEL sodium 138 mmol/ L 136-14 5 Not Available [address], [address], 11/02/2022 15:34:56 11/03/19 23 11/02/2022 BASIC METAB OLIC PANEL potassium 4.3 mmol/ L 3.5-5. 1 Not Available [address], [address], 11/02/2022 15:34:56 11/03/19 23 11/02/2022 BASIC METAB OLIC PANEL chloride 102 mmol/ L 96-107 Not Available [address], [address], 11/02/2022 15:34:56 11/03/19 23 11/02/2022 BASIC METAB OLIC PANEL anion gap 9.2 5.0-15 .0 Not Available [address], [address], 11/02/2022 15:34:56 11/03/19 23 11/02/2022 BASIC METAB OLIC PANEL CO2 27 mmol/ L 21-32 Not Available [address], [address], 11/02/2022 15:34:56 11/03/19 23 11/02/2022 BASIC METAB OLIC PANEL calcium 8.9 mg/dL 8.5-10 .3 Not Available [address], [address], 11/02/2022 15:34:56 11/03/1911/02/2022 LIPID PANEL cholesterol 143 mg/dL <200 mg/dl Sudhir able 200-2 39 mg/dl Borde rline High >240 mg/dl High Not Available [address], [address], 11/02/2022 15:34:57 11/03/19 23 11/02/2022 LIPID PANEL triglyceride s 317 mg/dL high <150 mg/dL Viki l 150-1 99 mg/dL Borde rline High 200-4 99 mg/dL High >500 mg/dL Very High Not Available [address], [address], 11/02/2022 15:34:57 11/03/19 23 11/02/2022 LIPID PANEL direct HDL 38 mg/dL <40 mg/dl - Major Risk for CHD >60 mg/dl - Negat berta Risk for CHD Not Available [address], [address], 11/02/2022 15:34:57 11/03/1911/02/2022 DIREC T LDL direct [...] r is not necmeaghan maisha. Not Available [address], [address], 11/02/2022 16:48:05 05/03/20 23 05/03/2023 HGB A1C [...] furth er confi rmati on Not Available [address], [address], 05/03/2023 12:05:19 05/03/2005/03/2023 HGB A1C estimated average glucose 157.1 mg/dL Not Available [address], [address], 05/03/2023 12:05:19 05/03/2005/03/2023 BASIC METAB OLIC PANEL glucose 173 mg/dL 70-100 high Not Available [address], [address], 05/03/2023 12:12:20 05/03/2005/03/2023 BASIC METAB OLIC PANEL BUN 17 mg/dL 7-18 Not Available [address], [address], 05/03/2023 12:12:20 05/03/2005/03/2023 BASIC METAB OLIC PANEL creatinine 1.0 mg/dL 0.8-1. 3 Not Available [address], [address], 05/03/2023 12:12:20 05/03/2005/03/2023 BASIC METAB OLIC PANEL B/C 17.0 ratio Not Available [address], [address], 05/03/2023 12:12:20 05/03/2005/03/2023 BASIC METAB OLIC PANEL [...] be used in pregn babak. Not Available [address], [address], 05/03/2023 12:12:20 05/03/2005/03/2023 BASIC METAB OLIC PANEL sodium 138 mmol/ L 136-14 5 Not Available [address], [address], 05/03/2023 12:12:20 05/03/2005/03/2023 BASIC METAB OLIC PANEL potassium 4.2 mmol/ L 3.5-5. 1 Not Available [address], [address], 05/03/2023 12:12:20 05/03/2005/03/2023 BASIC METAB OLIC PANEL chloride 102 mmol/ L 96-107 Not Available [address], [address], 05/03/2023 12:12:20 05/03/2005/03/2023 BASIC METAB OLIC PANEL anion gap 11.9 5.0-15 .0 Not Available [address], [address], 05/03/2023 12:12:20 05/03/2005/03/2023 BASIC METAB OLIC PANEL CO2 24 mmol/ L 21-32 Not Available [address], [address], 05/03/2023 12:12:20 05/03/20 23 05/03/2023 BASIC METAB OLIC PANEL calcium 9.0 mg/dL 8.5-10 .3 Not Available [address], [address], 05/03/2023 12:12:20 05/03/2005/03/2023 LIPID PANEL cholesterol 148 mg/dL <200 mg/dl Sudhir able 200-2 39 mg/dl Borde rline High >240 mg/dl High Not Available [address], [address], 05/03/2023 12:12:21 05/03/20 23 05/03/2023 LIPID PANEL triglyceride s 323 mg/dL high <150 mg/dL Viki l 150-1 99 mg/dL Borde rline High 200-4 99 mg/dL High >500 mg/dL Very High Not Available [address], [address], 05/03/2023 12:12:21 05/03/20 23 05/03/2023 LIPID PANEL direct HDL 42 mg/dL <40 mg/dl - Major Risk for CHD >60 mg/dl - Negat berta Risk for CHD Not Available [address], [address], 05/03/2023 12:12:21 05/03/20 23 05/03/2023 DIREC T [...] r is not jose ferrera. Not Available [address], [address], 05/03/2023 14:38:05 05/03/20 23 05/03/2023 MICRO ALBUM IN/CR EATIN INE RATIO PANEL , URINE microalbumin 8.0 mg/L 1.3-20 .0 Not Available [address], [address], 05/03/2023 15:48:25 05/03/20 23 05/03/2023 MICRO ALBUM IN/CR EATIN INE RATIO PANEL , URINE creatinine urine 139.3 mg/dL 30.0-1 25.0 high Not Available [address], [address], 05/03/2023 15:48:25 05/03/20 23 05/03/2023 MICRO ALBUM IN/CR EATIN INE RATIO PANEL , URINE microalb/cre at ratio 5.7 mg/g_ creat 0.0-29 .0 Not Available [address], [address], 05/03/2023 15:48:25 08/09/19 24 08/09/2023 BASIC METAB OLIC PANEL glucose 168 mg/dL 70-100 high Not Available [address], [address], 08/09/2023 10:55:05 08/09/19 24 08/09/2023 BASIC METAB OLIC PANEL BUN 17 mg/dL 7-18 Not Available [address], [address], 08/09/2023 10:55:05 08/09/19 24 08/09/2023 BASIC METAB OLIC PANEL creatinine 1.1 mg/dL 0.8-1. 3 Not Available [address], [address], 08/09/2023 10:55:05 08/09/19 24 08/09/2023 BASIC METAB OLIC PANEL B/C 15.5 ratio Not Available [address], [address], 08/09/2023 10:55:05 08/09/19 24 08/09/2023 BASIC METAB [...] be used in pregn babak. Not Available [address], [address], 08/09/2023 10:55:05 08/09/19 24 08/09/2023 BASIC METAB OLIC PANEL sodium 139 mmol/ L 136-14 5 Not Available [address], [address], 08/09/2023 10:55:05 08/09/19 24 08/09/2023 BASIC METAB OLIC PANEL potassium 4.3 mmol/ L 3.5-5. 1 Not Available [address], [address], 08/09/2023 10:55:05 08/09/19 24 08/09/2023 BASIC METAB OLIC PANEL chloride 102 mmol/ L 96-107 Not Available [address], [address], 08/09/2023 10:55:05 08/09/19 24 08/09/2023 BASIC METAB OLIC PANEL anion gap 10.8 5.0-15 .0 Not Available [address], [address], 08/09/2023 10:55:05 08/09/19 24 08/09/2023 BASIC METAB OLIC PANEL CO2 26 mmol/ L 21-32 Not Available [address], [address], 08/09/2023 10:55:05 08/09/19 24 08/09/2023 BASIC METAB OLIC PANEL calcium 8.9 mg/dL 8.5-10 .3 Not Available [address], [address], 08/09/2023 10:55:05 08/09/19 24 08/09/2023 HGB A1C [...] furth er confi rmati on Not Available [address], [address], 08/09/2023 10:57:32 08/09/19 24 08/09/2023 HGB A1C estimated average glucose 157.1 mg/dL Not Available [address], [address], 08/09/2023 10:57:32 10/25/19 24 10/25/2023 HGB A1C [...] furth er confi rmati on Not Available [address], [address], 10/25/2023 11:15:39 10/25/19 24 10/25/2023 HGB A1C estimated average glucose 139.9 mg/dL Not Available [address], [address], 10/25/2023 11:15:39 10/25/19 24 10/25/2023 BASIC METAB OLIC PANEL glucose 149 mg/dL 70-100 high Not Available [address], [address], 10/25/2023 16:27:42 10/25/19 24 10/25/2023 BASIC METAB OLIC PANEL BUN 21 mg/dL 7-18 high Not Available [address], [address], 10/25/2023 16:27:42 10/25/19 24 10/25/2023 BASIC METAB OLIC PANEL creatinine 1.0 mg/dL 0.8-1. 3 Not Available [address], [address], 10/25/2023 16:27:42 10/25/19 24 10/25/2023 BASIC METAB OLIC PANEL B/C 21.0 ratio Not Available [address], [address], 10/25/2023 16:27:42 10/25/19 24 10/25/2023 BASIC METAB [...] be used in pregn babak. Not Available [address], [address], 10/25/2023 16:27:42 10/25/19 24 10/25/2023 BASIC METAB OLIC PANEL sodium 139 mmol/ L 136-14 5 Not Available [address], [address], 10/25/2023 16:27:42 10/25/19 24 10/25/2023 BASIC METAB OLIC PANEL potassium 4.4 mmol/ L 3.5-5. 1 Not Available [address], [address], 10/25/2023 16:27:42 10/25/19 24 10/25/2023 BASIC METAB OLIC PANEL chloride 101 mmol/ L 96-107 Not Available [address], [address], 10/25/2023 16:27:42 10/25/19 24 10/25/2023 BASIC METAB OLIC PANEL anion gap 12.9 5.0-15 .0 Not Available [address], [address], 10/25/2023 16:27:42 10/25/19 24 10/25/2023 BASIC METAB OLIC PANEL CO2 25 mmol/ L 21-32 Not Available [address], [address], 10/25/2023 16:27:42 10/25/19 24 10/25/2023 BASIC METAB OLIC PANEL calcium 9.1 mg/dL 8.5-10 .3 Not Available [address], [address], 10/25/2023 16:27:42 10/25/19 24 10/25/2023 LIPID PANEL cholesterol 113 mg/dL <200 mg/dl Sudhir able 200-2 39 mg/dl Borde rline High >240 mg/dl High Not Available [address], [address], 10/25/2023 16:27:43 10/25/19 24 10/25/2023 LIPID PANEL triglyceride s 205 mg/dL <150 mg/dL Viki l 150-1 99 mg/dL Borde rline High 200-4 99 mg/dL High >500 mg/dL Very High Not Available [address], [address], 10/25/2023 16:27:43 10/25/19 24 10/25/2023 LIPID PANEL direct HDL 42 mg/dL <40 mg/dl - Major Risk for CHD >60 mg/dl - Negat berta Risk for CHD Not Available [address], [address], 10/25/2023 16:27:43 10/25/19 24 10/25/2023 LDL - [...] r is not terrimeaghan maisha. Not Available [address], [address], 10/25/2023 16:27:44 10/25/19 24 10/26/2023 IMMUN OGLOB ULIN A immunoglobul in A 125 mg/dL 47-310 normal Not Available [facility] [address], [address], 10/26/2023 16:02:40 10/25/19 24 10/26/2023 TISSU E TRANS GLUTA SANDRINE E AB, IGA tissue transglutami nase Ab, IgA <1.0 U/mL normal Value Inter preta tion ----- ----- ----- ---- <15.0 Antib tobias not detec audelia > or = 15.0 Antib tobias detec audelia Not Available [facility] [address], [address], 10/26/2023 16:02:41 01/02/20 24 01/02/2024 POC GLU POC glu 179 70 - 100 high Not Available [facility] [address] [place] [address], [address], 01/04/2024 09:10:15 05/08/20 24 05/08/2024 HGB A1C [...] furth er confi rmati on Not Available [address], [address], 05/08/2024 11:51:31 05/08/20 24 05/08/2024 HGB A1C estimated average glucose 151.3 mg/dL Not Available [address], [address], 05/08/2024 11:51:31 05/08/20 24 05/08/2024 MICRO ALBUM IN/CR EATIN INE RATIO PANEL , URINE microalbumin 21.0 mg/L 1.3-20 .0 high Not Available [address], [address], 05/08/2024 14:38:50 05/08/2005/08/2024 MICRO ALBUM IN/CR EATIN INE RATIO PANEL , URINE creatinine urine 121.7 mg/dL 30.0-1 25.0 Not Available [address], [address], 05/08/2024 14:38:50 05/08/20 24 05/08/2024 MICRO ALBUM IN/CR EATIN INE RATIO PANEL , URINE microalb/cre at ratio 17.3 mg/g_ creat 0.0-29 .0 Not Available [address], [address], 05/08/2024 14:38:50 05/08/20 24 05/09/2024 BASIC METAB OLIC PANEL glucose 182 mg/dL 70-100 high Not Available [address], [address], 05/09/2024 15:14:00 05/08/20 24 05/09/2024 BASIC METAB OLIC PANEL BUN 15 mg/dL 7-18 Not Available [address], [address], 05/09/2024 15:14:00 05/08/20 24 05/09/2024 BASIC METAB OLIC PANEL creatinine 1.1 mg/dL 0.8-1. 3 Not Available [address], [address], 05/09/2024 15:14:00 05/08/20 24 05/09/2024 BASIC METAB OLIC PANEL B/C 13.6 ratio Not Available [address], [address], 05/09/2024 15:14:00 05/08/20 24 05/09/2024 BASIC METAB [...] be used in pregn babak. Not Available [address], [address], 05/09/2024 15:14:00 05/08/20 24 05/09/2024 BASIC METAB OLIC PANEL sodium 140 mmol/ L 136-14 5 Not Available [address], [address], 05/09/2024 15:14:00 05/08/20 24 05/09/2024 BASIC METAB OLIC PANEL potassium 4.9 mmol/ L 3.5-5. 1 Not Available [address], [address], 05/09/2024 15:14:00 05/08/20 24 05/09/2024 BASIC METAB OLIC PANEL chloride 101 mmol/ L 96-107 Not Available [address], [address], 05/09/2024 15:14:00 05/08/20 24 05/09/2024 BASIC METAB OLIC PANEL anion gap 9.0 5.0-15 .0 Not Available [address], [address], 05/09/2024 15:14:00 05/08/20 24 05/09/2024 BASIC METAB OLIC PANEL CO2 30 mmol/ L 21-32 Not Available [address], [address], 05/09/2024 15:14:00 05/08/20 24 05/09/2024 BASIC METAB OLIC PANEL calcium 9.5 mg/dL 8.5-10 .3 Not Available [address], [address], 05/09/2024 15:14:00 11/02/19 24 11/02/2023 XR, ribs, unila teral CLINIC AL HISTOR Y: Left-s ided chest wall pain after a fall. Histor y of old fractu res. TECHNI QUE: At least 3 views of the left ribs are obtain ed. COMPAR SANDEE: 2020, 017 FINDIN GS: There are flap curer ior and latera l fractu res of the left fourth , fifth, sixth ribs. There are fractu re along the latera l aspect of the left sevent h, eighth and ninth ribs. There are fractu re of along the flap curer ior and beata latera l aspect s [...] everett Physic ana: Shanatalie steffanie Patrice ms [facility] (Imaging) [address] , [place], [address], 11/13/2023 10:06:59 Result Notes None recorded. Problems Name Problem SNOMED Code Status Onset Date Resolution Date Notes Provider Name and Address Organization Details Recorded Time Benign essentia l hyperten andra 4186658 Active Not Available [facility] 2 09:32:40 Neuropat hy due to diabetes mellitus 668753754 Active Not Available [facility] 2 09:32:40 Alcohol dependen ce 71745304 Active 2015 Not Available [facility] 2 09:32:40 Amputate d toe 357370103 Active 2018 Not Available [facility] 2 09:32:40 Obesity 554635909 Active 2021 Aydee Clarke NP [address] [place] [address], [address] , [facility] 2 09:06:14 Basal cell carcinom a of skin 689407629 Active 2021 Bina Chopra NP [address] [place] [address], [address] , [facility] 2 08:37:19 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 155573407 Active 2021 Aydee Clarke NP [address] [place] [address], [address] , [facility] 2 10:05:16 Tenosyno vitis of right radial styloid 92395595065 473101 Active 2024 Done at [facility] ROGE Granados, [facility] 5 16:25:32 Mixed hyperlip idemia 523631693 Active 2006 Not Available [facility] 2 09:32:40 Injury of finger 90848585 Completed 200003/01/2012 Aydee Clarke NP [address] [place] [address], [address] , [facility] 6 10:22:10 Testicul ar hypofunc tion 364152988 Completed 200603/01/2012 Aydee Clarke NP [address] [place] [address], [address] , [facility] 6 10:22:10 Essentia l hyperten andra 07255493 Completed 200003/01/2012 Aydee Clarke NP [address] [place] [address], [address] , [facility] 6 10:22:10 Diabetes mellitus 08236171 Completed 02/26/2014 Aydee Clarke NP [address] [place] [address], [address] , [facility] 6 10:22:10 Type 2 diabetes mellitus without complica tion 105005675 Active 2006 Not Available [facility] 2 09:32:40 Insect bite to trunk - nonvenom ous 393809898 Completed 03/01/2012 Aydee Clarke NP [address] [place] [address], [address] , [facility] 6 10:22:10 Benign essentia l hyperten andra 8459434 Completed 200603/01/2012 Aydee Clarke NP [address] [place] [address], [address] , [facility] 6 10:22:10 Atrial fibrilla tion 91616336 Completed 03/01/2012 Aydee Clarke NP [address] [place] [address], [address] , [facility] 6 10:22:10 Morbid obesity 525736249 Completed 200603/01/2012 Aydee Clarke NP [address] [place] [address], [address] , [facility] 6 10:22:10 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 2006 Not Available [facility] 2 09:32:40 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 Procedures Surgical History Date Name Laterality Status Provider Name and Address Organization Details Recorded Time 2 Obesity counseling completed Aydee Clarke NP [address] [place] [address], [address], [facility] 11/03/2021 09:05:56 2 prevention-card iovascular risk reduction counseling completed Aydee Clarke NP [address] [place] [address], [address], [facility] 11/03/2021 09:05:36 1 Katiana - Colonoscopy completed Mynor Saab MD [address] [place] [address], [address], [facility] 11/26/2020 07:46:53 1 prevention-card iovascular risk reduction counseling completed Esther Melendez [facility] 10/28/2020 07:54:46 1 prevention-vianey al alcohol misuse screening completed Esther Melendez [facility] 10/28/2020 07:54:46 0 prevention-card iovascular risk reduction counseling completed Esther Melendez [facility] 05/13/2020 10:57:32 0 prevention-vianey al alcohol misuse screening completed Esther Melendez [facility] 05/13/2020 10:57:32 5 Destruction of skin lesion completed Montana Foreman III, MD [address] [place] [address], [address], [facility] 01/05/2015 10:59:27 Imaging Results Imaging Date Name Status LastModified by Organiz ation Details LastModified Time 11/02/2023 XR, ribs, unilateral completed [facility] ([facility]) [address] , [place], [address], 11/13/2023 10:06:59 Procedure Notes None recorded. Medical [...] /min 97 % 97 % 30 kg/m2 23031.7 7 g 116 mm[Hg] 84 mm[Hg] PHUONG Paul [facility] 3 08:51:13 Date Recorded Body height Body mass index (BMI) Body weight Heart rate Systolic blood pressure Diastolic blood pressure Provider Name and Address Organization Details Last Updated DateTime 3 168.28 cm 30.4 kg/m2 88782.5 5 g 81 /min 114 mm[Hg] 73 mm[Hg] Adrián Worthington Ben [facility] 3 09:28:45 Date Recorded Body height Body mass index (BMI) Body weight Heart rate Oxygen saturation Oxygen saturation in Arterial blood by Pulse oximetry Systolic blood pressure Diastolic blood pressure Provider Name and Address Organization Details Last Updated DateTime 4 168.28 cm 31.8 kg/m2 89842.6 9 g 105 /min 99 % 99 % 150 mm[Hg] 82 mm[Hg] Samantha Galindo [facility] 4 08:15:04 Date Recorded Body height Body mass index (BMI) Body weight Oxygen saturation Oxygen saturation in Arterial blood by Pulse oximetry Heart rate Systolic blood pressure Diastolic blood pressure Systolic blood pressure Diastolic blood pressure Provider Name and Address Organization Details Last Updated DateTime 4 168.28 cm 31.1 kg/m2 55044.9 2 g 100 % 100 % 88 /min 125 mm[Hg] 84 mm[Hg] 133 mm[Hg] 74 mm[Hg] Adrián Worthington [facility] 4 11:24:46 Date Recorded Body height Body mass index (BMI) Body weight Oxygen saturation Oxygen saturation in Arterial blood by Pulse oximetry Heart rate Systolic blood pressure Diastolic blood pressure Provider Name and Address Organization Details Last Updated DateTime 4 168.28 cm 30.1 kg/m2 78711.3 7 g 97 % 97 % 77 /min 104 mm[Hg] 62 mm[Hg] Adrián Worthington [facility] 4 08:26:48 Social History Question Answer Notes LastModified by Organizat ion Details LastModified Time Tobacco Smoking Status Never Smoker checked 05-15-24 Adrián Worthington Ben [facility] 05/15/2024 08:27:56 What Is Your Level Of Alcohol Consumption? Moderate 5 Days A Week- 4 Shot Glasses A Day Vodka -[email or web address]. [email or web address] Information not available 05/15/2024 Do You Wear A Helmet When Biking? Yes [email or web address] Information not available 06/24/2015 What Is Your Level Of Caffeine Consumption? None [email or web address] Information not available 05/13/2020 How Much Tobacco Do You Chew? None Information not available 12/31/2012 What Type Of Diet Are You Following? REGULAR [email or web address] Information not available 06/24/2015 Which Illicit Or Recreational Drugs Have You Used? No Denies [email or web address] Information not available 01/15/2018 Do You Or Have You Ever Used E-cigarettes Or Vape? 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 0 Information not available 12/31/2012 Are There Any Guns Present In Your Home? No [email or web address] Information not available 06/24/2015 Live Alone Or With Others? With Others DBA_PATCH_ [email or web address] Information not available 06/08/2011 Patient Has Health Care Proxy Signed And In Chart Yes [email or web address] Information not available 11/14/2022 Marital Status [email or web address] Informatio n not available 03/01/2012 Mosquito Repellent Used Routinely Yes Information not available 01/15/2018 What Was The Date Of Your Most Recent Tobacco Screening? 05/11/2022 05/11/22 CJ [email or web address] Information not available 05/11/2022 How Many Children Do You Have? 0 [email or web address]_[email or web address] Information not available 06/08/2011 Seat Belts Used Routinely Yes [email or web address] Information not available 06/24/2015 Smoke Alarm In Home Yes [email or web address] Information not available 06/24/2015 Do You Or Have You Ever Used Smokeless Tobacco? Never Used Smokeless Tobacco 10/28/2019 TG Information not available 10/28/2019 How Much Tobacco Do You Smoke? No 05/11/22 CJ [email or web address] Information not available 05/11/2022 What Types Of Sporting Activities Do You Participate In? No Information not available 01/15/2018 General Stress Level Low [email or web address] Information not available 06/24/2015 Do You Use Sunscreen Routinely? Yes [email or web address] Information not available 06/24/2015 How Many Years [...] Time Tdap 007 completed Not Available [facility] 06/07/2011 05:21:29 Tdap 007 completed Not Available [facility] 06/07/2011 05:21:29 pneumococcal polysaccharide PPV23 009 completed Not Available [facility] 08/09/2019 02:38:00 Td (adult), 2 Lf tetanus toxoid, preservative free, adsorbed 018 completed Not Available [facility] 08/09/2019 02:22:36 Influenza, split virus, quadrivalent, PF 022 cancelled patient objection Anali Yanez D.O. [address] [place] [address], [phone], [facility] 05/11/2022 11:18:26 Influenza, split virus, quadrivalent, PF 023 cancelled patient objection Nikole Pandya. [address] [place] [address], [phone], [facility] 05/13/2023 15:47:02 COVID-19, mRNA, LNP-S, PF, 30 mcg/0.3 mL dose 021 completed BLAINE Vance, [facility] 06/03/2021 14:14:02 COVID-19, mRNA, LNP-S, PF, 30 mcg/0.3 mL dose 021 [facility] 14:14:12 COVID-19, mRNA, LNP-S, PF, 100 mcg/0.5mL dose or 50 mcg/0.25mL dose 022 [facility] 14:21:46 Past Encounters Encounter ID Performer Location Encounter Start Date Encounter Closed Date Diagnosis/Indication Diagnosis SNOMED-CT Code Diagnosis ICD10 Code Diagnosis Note [id number] Raven Escobar MD , [facility] [place] [address] [place] [address] 08/28/2000 11:45:00 08/12/2008 02:02:29 [id number] Montana Foreman III, MD , [facility] OFFICE [address] [place] [address] 09/07/2006 09:25:16 09/07/2006 13:17:47 [id number] [facility] - [address] [place] [address] 09/27/2006 09:47:41 09/27/2006 09:47:45 [id number] Yung Escobar, OD [facility], [address] [place] [address] 09/27/2006 10:01:46 09/27/2006 11:52:26 [id number] Yung Escobar, OD [facility], [address] [place] [address] 10/15/2006 14:29:42 10/15/2006 17:10:27 [id number] Montana Foreman III, MD , [facility]ICE [address] [place] [address] 10/17/2006 08:03:38 10/17/2006 09:08:25 [id number] Montana Foreman III, MD , [facility] OFFICE [address] [place] [address] 01/09/2007 12:05:24 01/09/2007 14:30:41 [id number] [facility] - [address] [place] [address] 01/10/2007 07:28:27 01/10/2007 07:28:32 [id number] [facility] - [address] [place] [address] 01/11/2007 08:57:27 01/11/2007 08:57:35 [id number] Montana Foreman III, MD , [facility] OFFICE [address] [place] [address] 02/01/2007 08:12:35 02/01/2007 10:48:02 [id number] [facility] - [address] [place] [address] 06/11/2007 07:56:03 06/11/2007 07:56:12 [id number] Montana Foreman III, MD , [facility] OFFICE [address] [place] [address] 06/25/2007 09:01:34 08/12/2008 02:02:29 [id number] ISABELLA [facility]dom [facility], [address] [place] [address] 07/09/2007 09:05:27 07/10/2007 09:23:03 [id number] [facility] - [address] [place] [address] 11/19/2007 10:32:30 11/19/2007 10:32:45 [id number] Montana Foreman III, MD , [facility] OFFICE [address] [place] [address] 05/12/2009 10:30:12 05/13/2009 08:35:11 [id number] Montana Foreman III, MD , [facility] OFFICE [address] [place] [address] 06/09/2009 14:41:02 06/10/2009 09:44:59 [id number] Lolis Rincon PA-C [facility], [address] [place] [address] 06/23/2009 08:26:26 06/24/2009 09:26:23 [id number] Lolis Rincon PA-C [facility], [address] [place] [address] 08/19/2009 09:27:35 08/19/2009 14:10:39 [id number] Lolis Rincon PA-C [facility], [address] [place] [address] 11/18/2009 09:29:15 11/18/2009 10:41:01 [id number] Montana Foreman III, MD , [facility] OFFICE [address] [place] [address] 09/20/2010 12:01:55 09/20/2010 16:23:51 [id number] MD RENU Delong III, [facility] OFFICE [address] [place] [address] 06/21/2011 09:53:16 06/21/2011 10:13:02 [id number] Montana Foreman III, MD , [facility] OFFICE [address] [place] [address] 01/23/2012 08:10:14 01/23/2012 09:04:59 [id number] MD RENU Delong III, [facility], OFFICE [address] [place] [address] [place] [address] 03/01/2012 08:33:47 03/01/2012 09:08:14 [id number] Montana Foreman III, MD , [facility] OFFICE [address] [place] [address] [place] [address] 12/31/2012 11:03:27 01/01/2013 07:35:53 [id number] Montana Foreman III, MD , [facility] OFFICE [address] [place] [address] [place] [address] 05/19/2013 09:39:48 05/19/2013 09:56:44 Nonvenomous insect bite of multiple sites [id number] MD RENU Delong III, [facility] OFFICE [address] [place] [address] 08/28/2013 15:02:43 08/28/2013 15:25:22 Benign essential hypertension 6226281 continue to work on diet ,exercisea nd lowering salt intake as discussed Mixed hyperlipidemia 402479233 continue to work on diet and exercise as discussed Adult heal th examination [id number] see Risk Assessment and Lifestyle Change Counseling section above Counseling [id number] Type 2 nora betes mellitus without complication 506287071 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 408743920 Disorder o f nervous system due to type 2 diabetes mellitus 378673162 [id number] MD RENU Delong III, [facility] OFFICE [address] [place] [address] 02/26/2014 09:23:19 02/26/2014 09:55:23 Benign essential hypertension 5841605 continue to work on diet ,exercisea nd lowering salt intake as discussed Mixed hyperlipidemia 514538057 continue to work on diet and exercise as discussed Disorder o f nervous system due to type 2 diabetes mellitus 270320819 Foot neuropathy Neoplasm of skin 877851272 [id number] MD RENU Delong III, [facility], OFFICE [address] [place] [address] 01/05/2015 10:38:43 01/05/2015 10:57:32 Benign essential hypertension 7711731 continue to work on diet, exercise, and lowering salt intake as discussed Mixed hyperlipidemia 739636715 continue to work on diet and exercise as discussed Cholestero l is at goal Type 2 nora betes mellitus without complication 235502229 Actinic keratosis 311111849 Right shoulder x 2 [id number] PABLO Sommers, [facility] OFFICE [address] [place] [address] 02/23/2015 09:02:42 02/23/2015 09:28:05 Paronychia of toe 982657441 Diabetes mellitus 34297032 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 240258372 [id number] PABLO Sommers [facility] OFFICE [address] [place] [address] 02/25/2015 09:28:28 02/25/2015 10:08:25 Paronychia of toe 584158253 Diabetes mellitus 01620444 Cellulitis of toe 28344270 [id number] PABLO Sommers [facility] OFFICE [address] [place] [address] 02/26/2015 09:13:35 02/26/2015 09:42:40 Cellulitis of toe 57905510 Paronychia of toe 496764413 Diabetes mellitus 04596897 [id number] PABLO Sommers [facility]ICE [address] [place] [address] 03/01/2015 09:16:53 03/01/2015 09:27:47 Cellulitis of toe 10174953 resolving will finish remaining 3 days of Bactrim DS bid. Again reviewed sxs of infection and will rto if they reoccur. [id number] PABLO Sommers [facility]ICE [address] [place] [address] 06/24/2015 08:26:01 06/24/2015 09:06:08 Type 2 diabetes mellitus without complication 945680188 E11.9 A1C not at goal of <7.0 Up significan tly from December will increase metformin ER to 1000 mg bid will decrease ETOH, sugar drinks repeat labs 3 months- OV Mixed hyperlipidemia 267 459140 E78.2 Trigs are not at goal Will c/w omega fish oil 4000 mg qd will decrease ETOH and sugary drinks Continue to work on diet and exercise as discussed repeat labs 3 months and f/u OV Benign ess ential hypertension 0510305 I10 Blood pressure at goal . continue to work on diet, exercise, and lowering salt intake as discussed Adult [facility] th examination 303681295 Z00.00 see Risk Assessment and Lifestyle Change Counseling section above HM: Labs UTD Declines flu shot Counseling 915471441 Z71 .9 Alcohol dependence 71757 003 F10.20 discussed reducing ETOH intake discussed impact on blood sugar and triglyceri vi Pain of [facility] 84722840 M25.512 ? impingemen t will try 3-5 days of NSAIDs, alternate heat and ice will call if he reconsider PT Neuropathy due to diabetes mellitus 269658234 E11.40 stable discussed importance of checking feet regularly. [id number] Anali Yanez D.O. , [facility] OFFICE [address] [place] [address] 12/01/2015 09:44:27 12/01/2015 10:33:57 Type 2 diabetes mellitus without complication 720328701 E11.9 A1C at goal of <7.0 at 5.0 will c/w increase metformin 1000 mg bid c/w glyburide 2.5 mg qd discussed working on diet, ETOH reduction will repeat in 3 months to check for stability OV 6 months Mixed hyperlipidemia 267 609467 E78.2 Trigs much improved down from 699 to 158! great job Will c/w omega fish oil 4000 mg qd will decrease ETOH and sugary drinks Continue to work on diet and exercise as discussed repeat labs 3 months and f/u OV 6 months Benign ess ential hypertension 0506837 I10 Blood pressure at goal . 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 Adjustment disorder 1722 6007 F43.23 dealing with loss of 32 brother (OD) as well taking care of Mom [id number] Jraocho Browne MD , [facility] OFFICE [address] [place] [address] 01/25/2016 09:18:19 01/25/2016 10:06:23 Infection of toe 010954513 L08.9 in diabetic with neuropathy i informed him that this was a serious infection for him and that we must be observant augmentin for 12 days.he will rto for non response after 48 hrs, or for progressio n or onset fever Neuropathy due to diabetes mellitus 826514974 E11.40 [id number] Anali Yanez D.O. , [facility] OFFICE [address] [place] [address] 06/28/2016 09:35:15 06/29/2016 09:39:46 Benign essential hypertension 1924243 I10 BP at goalc/w meds Neuropathy due to diabetes mellitus 621045921 E11.40 abn but stable discussed importance of checking feet regularly. Mixed hyperlipidemia 267 334522 E78.2 Trigs up from 158 to 388will c/w fish oildiscuss ed importance of ETOH reduction Type 2 nora betes mellitus without complication 194169417 E11.9 A1C very good at 5.7will get meter d/t ? of low blood sugarsIf getting lows discussed potentiall y reducing glyburideR F on med today Adult heal th examination 177283587 Z00.00 see Risk Assessment and Lifestyle Change Counseling section aboveHM: declines flu shot Counseling 996737238 Z71 .9 Alcohol dependence 84870 003 F10.20 discussed reducing ETOH intake- has not reduced discussed impact on blood sugar and triglyceri vi lhoping new job (no longer at [employer]) will help reduce [id number] Anali Yanez D.O. , [facility] [place]ICE [address] [place] [address] 10/10/2016 08:00:49 10/12/2016 15:46:30 Injury of ribs 214788965 S29.9XXA Alcohol dependence 39369 003 F10.20 Type 2 nora betes mellitus without complication 933993848 E11.9 [id number] Anali SEARS, [facility] OFFICE [address] [place] [address] 01/09/2017 07:57:33 01/10/2017 09:04:13 Benign essential hypertension 7161827 I10 Blood pressure at goal of <140/90c/w lisinopril BMP utd wnl Mixed hyperlipidemia 267 644509 E78.2 LDL at goal of <100c/w simvastati ncontinue to work on diet and exercise as discussed Type 2 nora betes mellitus without complication 215007609 E11.9 A1C 5.0 with Goal <6.5doing well with more activity d/t jobno med changesmay consider reducing if c/w low A1Crto 6 months for PHA Neuropathy due to diabetes mellitus 525876877 E11.40 abn but stable discussed importance of checking feet regularly. 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 to d/c glyburide and CUT DOWN metformin to 1000 mg once dailywill recheck HbA1c in Jun [id number] Anali SEARS, [facility] OFFICE [address] [place] [address] 01/15/2018 10:28:34 01/15/2018 11:35:54 Type 2 diabetes mellitus without complication 297307622 E11.9 A1C 5.9 with Goal <6.5doing well with more activity d/t jobno med changesmay consider reducing if c/w low A1Crto 6 months for PHA Alcohol dependence 40916 003 F10.20 stable with slight decrease per pt3-4 drinks 5 x week Benign ess ential hypertension 4540943 I10 Blood pressure at goal of <140/90c/w lisinopril BMP utd wnl Neuropathy due to diabetes mellitus 874816051 E11.40 abn but stable discussed importance of checking feet regularly. Mixed hyperlipidemia 267 511988 E78.2 LDL at goal of <100c/w simvastati ncontinue to work on diet and exercise as discussed Active or passive immunization 052600641 Z23 Diabetic foot ulcer 3710 40923 E11.40 R foot 2nd toe with cellulitis will get xrayget bactrim DS bid x [address] Wang for wound care. [id number] Mitesh Cheng DPM Podiatry, [facility] [address] [facility] [place] [address] 01/30/2018 11:02:26 01/30/2018 14:26:05 Acute osteomyelitis of phalanx of toe 863212647 M86.179 Reviewed right foot xray notable for [...] post op day 0. Pain in toe 504775792 M7 9.674 Ulcer of toe 402874216 L 97.772 [id number] Anali SEARS, [facility]ICE [address] [place] [address] 01/30/2018 15:50:18 01/30/2018 18:24:23 Pre-surgery evaluation 079337916 Z01.818 ekg wnlThe patient is a low risk for perioperat berta cardiovasc ular complicati ons, and may proceed with surgery. Acute oste omyelitis of phalanx of toe 371034951 M86.179 R 2nd toe Benign ess ential hypertension 3809443 I10 Blood pressure at goal of <140/90c/w lisinopril BMP utd wnl Alcohol dependence 25052 003 F10.20 stable with slight decrease per pt3-4 drinks 5 x week [id number] Mitesh Cheng DPM Podiatry, [address] [address] 02/12/2018 10:26:41 02/12/2018 11:12:01 Acute osteomyelitis of phalanx of toe 023435225 M86.179 Reviewed right foot xray notable for erosions of distal aspect of distal phalanx s/p partial amputation of toe. Rx for augmentin sent to pharmacy for 10 day course. Dressing changed. Pain in toe 072037252 M7 9.674 will remove sutures in 1 week. [id number] Mitesh Cheng DPM Podiatry, [address] [address] 02/19/2018 08:51:40 02/19/2018 09:26:45 Acute osteomyelitis of phalanx of toe 641697763 M86.179 Reviewed right foot xray notable for erosions of distal aspect of distal phalanx s/p partial amputation of toe. Pain in toe 688697842 M7 9.674 Sutures removed today. Scab overlying incision removed and site bleeding area identified . Area was cleansed then new dressing was applied to the toe. Pt instructed to take abx to completion . Also to keep toe covered with gauze after daily dressing changes until area is healed up. RTC 2 weeks to re-eval. Ok to return to work tomorrow. [id number] Mitesh Cheng DPM Podiatry, [address] [address] 03/05/2018 08:38:01 03/07/2018 14:19:36 Acute osteomyelitis of phalanx of toe 614725343 M86.179 Reviewed right foot xray notable for erosions of distal aspect of distal phalanx s/p partial amputation of toe. Resolved, patient with clean margins. Pain in toe 016151943 M7 9.674 Right 2nd toe wound all healed up now. Pt ok to get toe wet. Counceled on need for diabetic shoes with custom insoles, as he will need wide width and extra depth shoe to accomodate toe deformitie s. RTC 3 months to re-eval. [id number] Mitesh Cheng DPM Podiatry, [address] [address] 05/07/2018 09:13:31 05/07/2018 09:50:36 Pain in toe 636993510 M79.674 Counseled on need for diabetic shoes with custom insoles, as he will need wide width and extra depth shoe to accomodate toe deformitie s. Orthotics agreement form was completed and signed today. Pt given a copy. We will check with her insurance about coverage. Patient is aware of cost. Cellulitis of toe 060615 04 L03.031 Ulcer of toe 304536574 L 97.509 Verbal consent was obtained. Right [...] in counseling and coordinati on of care. [id number] Mitesh Cheng DPM Podiatry, [address] [address] 05/21/2018 08:45:10 05/21/2018 16:20:21 Pain in toe 669149136 M79.674 Counseled on need for diabetic shoes [...] coordinati on of care. Cellulitis of toe 309506 04 L03.031 resolved Ulcer of toe 346218705 L 97.509 Verbal consent was obtained. Right [...] in counseling and coordinati on of care. [id number] Mitesh Cheng DPM Podiatry, [address] [address] 07/09/2018 09:09:03 07/10/2018 08:20:30 Pain in toe 762058882 M79.674 Pt was informed that breaking into fulltime wear of custom made functional foot orthotic devices should occur over a period of 10 to 14 days. On the day of pecan picker the orthotic devices, wear them for [...] coordinati on of care. Cellulitis of toe 635706 04 L03.031 resolved Ulcer of toe 147636155 L 97.509 Verbal consent was obtained. Right 4th toe prepped and sterile instrument ation used to unroof blister draining serous drainage. Wound was dressed wtih betadine and dsd. Pt was given instructio ns to dress it accordingl y each day. Rx for abx sent to pharmacy. RTC 2 weeks. Not to get foot wet. [id number] Anali Yanez D.O. , [facility] [place]ICE [address] [place] [address] 09/06/2018 14:25:20 09/06/2018 15:02:23 Adult health examination 039492948 Z00.00 see Risk Assessment and Lifestyle Change Counseling section aboveHM: labs utdcolonos copy due Counseling 565205730 Z71 .9 Depression screening 171 604250 Z13.89 1 out of 27depressi on screening tool administer ed, entered into emr, scored and discussed, time greater than 7.5 minutes Mixed hyperlipidemia 267 402719 E78.2 LDL at goal of <100c/w simvastati ncontinue to work on diet and exercise as discussed Benign ess ential hypertension 1805596 I10 BP at goal c/w lisinopril continue to work on diet, exercise, and lowering salt intake as discussed Type 2 nora betes mellitus without complication 435445280 E11.9 A1C 5.7 with Goal <6.5still high fasting bs at 157advised to reduce ETOH particular ly shots doing well with more activity d/t jobno med changesmay consider reducing if c/w low A1Crto 6 months for PHA Alcohol dependence 06768 003 F10.20 3-4 everyday after workis doing shotsadvis ed to reduce- pt agrees Neuropathy due to diabetes mellitus 696241050 E11.40 abn but stable discussed importance of checking feet regularly. Screening for malignant neoplasm of colon 744837443 Z12.11 Referral for a DIRECT booked colonoscop y. This patient is a healthy ASA Class 1 or 2 patient (only mild systemic disease), or a STABLE, well controlled insulin dependent diabetic. They do not have serious cardiac disease ie DC/angiopl asty within 1 year, symptomati c CHF; renal failure with CKD 4 or 5; take Coumadin, Plavix, Aggrenox, etc. Amputated toe 339606918 Z89.429 R 2nd toecheck feet daily [id number] Anali Yanez D.O. , [facility], [place]ICE [address] [place] [address] 03/10/2019 15:51:01 03/10/2019 16:23:56 Mixed hyperlipidemia 475394901 E78.2 LDL at goal of <100c/w simvastati ncontinue to work on diet and exercise as discussed Screening for malignant neoplasm of colon 217484445 Z12.11 Referral for a [employer] booked colonoscop y. This patient is a healthy ASA Class 1 or 2 patient (only mild systemic disease), or a STABLE, well controlled insulin dependent diabetic. They do not have serious cardiac disease ie DC/angiopl asty within 1 year, symptomati c CHF; renal failure with CKD 4 or 5; take Coumadin, Plavix, Aggrenox, etc. Neuropathy due to diabetes mellitus 038524492 E11.40 abn but stable discussed importance of checking feet regularly. no open toe shoesneed to protect feet Amputated toe 621508936 Z89.429 R 2nd toecheck feet daily Benign ess ential hypertension 5466771 I10 BP at goal c/w lisinopril continue to work on diet, exercise, and lowering salt intake as discussed Disorder o f nervous system due to type 2 diabetes mellitus 285276950 E11.49 DM is [id number] 5.8 which is great- at goaldiscus sed importance of foot carealread y had 1 amputation injury to L great toe- no open toe shoes Obesity 369437727 E66.9 BMI 30.5c/w low fat, low carb diet c/w regular activity Injury of toe 540045932 S99.922A likely paronychia of L great toeInterdi git is red, swollen with some warmthno painhx of osteomyeli tis with amputation xray todaystart keflex 500 mg tid x 7 days. Cramp in l ower limb associated with sleep 1112392674 60774 G47.62 advised increasing potassium with banana, sweet potatoeske ep hydrated with electrolyt estry diet tonic prior to bed [id number] Nikole Pandya . MD SEARS, [facility], [address]ICE [address] [place] [address] 10/28/2019 08:30:56 10/28/2019 15:14:19 Low back pain 454041731 M54.5 Low back strain, no alarming symptoms. Will treat with ice, muscle relaxers and NSAIDs. Do not take ibuprofen with meloxicam. Call us with any new neurologic symptoms. 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 [id number] Anali Yanez D.O. , [facility] OFFICE [address] [place] [address] 05/13/2020 10:57:05 05/14/2020 11:47:45 Adult health examination 313611346 Z00.00 see Risk Assessment and Lifestyle Change Counseling section aboveHM: labs utdcolonos copy due Counseling 996115072 Z71 .9 including cardiovasc ular risk reduction counseling Depression screening 171 259342 Z13.89 0 out of 27 phq 9mood is gooddepres andra screening tool administer ed, entered into emr, scored and discussed, time greater than 7.5 minutes Screening for alcohol abuse 369321890 Z13.39 + auditwill work on decreasein g Amputated toe 712382774 Z89.429 R 2nd toecheck feet daily Type 2 nora betes mellitus without complication 567550613 E11.9 A1C 6.3 up from 5.8 but at Goal <6.5advise d to reduce ETOH particular ly shots doing well with more activity d/t jobno med changesrto 6 months for MM Alcohol dependence 37953 003 F10.20 Audit 43-4 everyday after work - drinking more with covid and less to do at nightis doing shotsadvis ed to reduce- pt agrees Mixed hyperlipidemia 267 512168 E78.2 Cholestero l is at goal LDL is 46Trigs are high at 281- will work on diet and less etoh Continue to work on diet and exercise as discussed Essential hypertension 93591589 I10 cannot check bpwill have him come in for bp checkif not at goal of < 130/80 will increase lisinopril to 20 mg [id number] Anali Yanez D.O. , [facility] [place]ICE [address] [place] [address] 05/27/2020 09:04:01 05/28/2020 15:26:35 [id number] Anali Yanez D.O. [facility], OFFICE [address] [place] [address] 10/28/2020 07:51:21 11/19/2020 16:22:56 Essential hypertension 13553192 I10 cannot check bpwill have him come in for bp checkif not at goal of < 130/80 will increase lisinopril to 20 mg Adult heal th examination 349411943 Z00.00 see Risk Assessment and Lifestyle Change Counseling section above HM: labs utd colonoscop y due Counseling 722790415 Z71 .9 including cardiovasc ular risk reduction counseling Screening for alcohol abuse 009131241 Z13.39 + auditwill work on decreasein g Mixed hyperlipidemia 267 515013 E78.2 Cholestero l is at goal LDL is 50 Trigs are high at 472- will work on diet and less etoh Continue to work on diet and exercise as discussed Amputated toe 512673366 Z89.429 R 2nd toecheck feet daily Type 2 nora betes mellitus without complication 561927137 E11.9 A1C 6.1 at Goal <6.5 advised to reduce ETOH doing well with more activity d/t job no med changes rto 6 months for MM Alcohol dependence 28848 003 F10.20 Audit 7 more with pandemic 3-4 everyday after work - drinking more with covid and less to do at night is doing shots advised to reduce- pt agrees Neuropathy due to diabetes mellitus 885686126 E11.40 abn but stable discussed importance of checking feet regularly. no open toe shoesneed to protect feet [id number] Anali Yanez D.O. , [facility], OFFICE [address] [place] [address] 11/18/2020 08:16:03 11/19/2020 16:14:08 [id number] Mynor Saab MD [facility], [facility] [address] [place] [address] 11/26/2020 06:44:42 11/26/2020 12:47:20 [id number] Anali Yanez D.O. , [facility], [address]ICE [address] [place] [address] 06/03/2021 14:03:53 06/03/2021 14:47:31 Low back pain 105764907 M54.50 acute low back pain x 4 hoursNo Red FlagsCan use heat/ice to see if its helpfulMot rin for pain as neededTria l muscle relaxants for spasmsAdvi sed if no improvemen t over the next couple of weeks to f/u for PT referral Benign ess ential hypertension 9135620 I10 BP at goalBP goal < 130/80labs up to date [id number] Jarocho Browne MD , [facility], [address]ICE [address] [place] [address] 06/13/2021 08:59:47 06/13/2021 09:45:05 Rib pain 566075187 R07.81 fall to a raised corner of a deck yesterdayn ow with positional muscular pain Left Ant chest wall and axilla. wincingly tender [id number] rib mid axillary line although no ecchymosis or wound is visibleL CTA he has experience d rib injuries before, so understand s duration of activity limiting pain with leftarm and truncal movementsr ec ibuprofen' image fo rproignost ics [id number] Anali Yanez D.O. , [facility], OFFICE [address] [place] [address] 11/03/2021 08:30:54 11/03/2021 09:02:37 Adult health examination 284406602 Z00.00 see Risk Assessment and Lifestyle Change Counseling section above HM: labs utd colonoscop y 11/26/2020 W/ 5 YR REPEATEYE EXAM 10/23/2020- WILL SCHEDULE Counseling 486888585 Z71 .9 including cardioascu lar risk reduction counseling Depression screening 171 809814 Z13.31 neg phq 9depressio n screening tool administer ed, entered into emr, scored and discussed, time greater than 7.5 minutes Screening for alcohol abuse 847715002 Z13.39 + auditwill work on decreasein g Amputated toe 956621679 Z89.429 R 2nd toecheck feet daily Alcohol dependence 41015 003 F10.20 Audit 7 more with pandemic and loss of dog 3-4 2x week and then on weekends advised to reduce- pt agrees Essential hypertension 58815532 I10 Bp not at goal of < 130/80 but just aboveno med changes Neuropathy due to diabetes mellitus 462628609 E11.40 A1C 6,4- sugars stablec/w metformin 1500 mg qdabn but stable discussed importance of checking feet regularly. no open toe shoesneed to protect feet Mixed hyperlipidemia 267 239095 E78.2 Cholestero l is at goal LDL is 45 Trigs are better 222 Continue to work on diet and exercise as discussed Obesity 631131904 E66.9 BMI 30.6keep low fat, low carb dietc/w regular activity [id number] Anali Yanez D.O. [facility], OFFICE [address] [place] [address] 05/11/2022 09:14:18 05/11/2022 09:53:17 Essential hypertension 16642665 I10 Bp at goal of < 130/80no med changesf/u 3 mos Mixed hyperlipidemia 267 688404 E78.2 Cholestero l is at goal LDL is 45 Trigs 371- will work on better diet Continue to work on diet and exercise as discussed Amputated toe 879769043 Z89.429 R 2nd toecheck feet daily Obesity 724520657 E66.9 BMI 30.6keep low fat, low carb dietc/w regular activity Alcohol dependence 01629 003 F10.20 more with pandemic and loss of dog but had returned to baseline 3-4 2x week Neuropathy due to diabetes mellitus 478974987 E11.40 A1C 6.6 - slight increase from previous but overall sugars stablec/w metformin 1500 mg qdabn but stable discussed importance of checking feet regularly. 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 Geensis Coats [id number] Anali Yanez D.O. [facility], OFFICE [address] [place] [address] 11/10/2022 08:27:54 11/10/2022 09:18:34 Adult health examination 528215128 Z00.00 see Risk Assessment and Lifestyle Change Counseling section above HM: labs utd colonoscop y 11/26/2020 W/ 5 YR REPEATEYE EXAM 10/23/2020- WILL SCHEDULE Depression screening 171 448299 Z13.31 depression screening tool administer edneg phq 9 Screening for alcohol abuse 688156701 Z13.39 Alcohol use screening tool administer edaudit 55 days a week- more on weekends. 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 no open toe shoesneed to protect feet Primary er ectile dysfunction 468872689 N52.9 Disorder o f nervous system due to type 2 diabetes mellitus 285101603 E11.49 A1C 6.4 -c/w metformin 1500 mg qdfully abn foot exam but stable discussed importance of checking feet regularly. 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 520518603 E11.3299 mild OUutd on exam 04/2023fol lowed by Levy yan get exam notes Type 2 nora betes mellitus without complication 296707607 E11.9 A1C 6.5 at Goal <6.5 advised to reduce ETOH doing well with more activity d/t job no med changes rto 6 months for MM Obesity 255264836 E66.9 BMI 30.4keep low fat, low carb dietc/w regular activity Alcohol dependence 89376 003 F10.20 continues with etoh 3-4 days week more on weekends d iscussed impact on EDencourag ed reduction Benign ess ential hypertension 4994638 I10 BP at goal c/w lisinopril continue to work on diet, exercise, and lowering salt intake as discussed Neuropathy due to diabetes mellitus 409570940 E11.40 A1C 6.5c/w metformin 2000 mg qdfully abn foot exam but stable discussed importance of checking feet regularly. no open toe shoesneed to protect feet Mixed hyperlipidemia 267 746230 E78.2 Cholestero l is at goal at 30c/w statinCont inue to work on diet and exercise as discussed Adult heal th examination 360573394 Z00.00 see Risk Assessment and Lifestyle Change Counseling section above HM: labs utd colonoscop y 11/26/2020 W/ 5 YR REPEATEYE EXAM 04/2023- WILL SCHEDULE declines psa Depression screening 171 392392 Z13.31 depression screening tool administer edneg phq 9mood is good Screening for alcohol abuse 903397766 Z13.39 Alcohol use screening tool administer edaudit 8etoh dependence discussed impact on sugars, kidney/braden er fx- understand s Screening for malignant neoplasm of prostate 846433896 Z12.5 If you have a prostate, the [...] expectancy .declines testing this year Rib pain 555834613 R07.8 1 injury 2 weeks agorf of ibuprofen Disorder o f nervous system due to type 2 diabetes mellitus 142372424 E11.49 A1C 6.5c/w metformin 1500 mg qdfully abn foot exam but stable discussed importance of checking feet regularly. 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 255268536 E11.3299 mild OUutd on exam 06/2023fol lowed by [facility] Type 2 nora betes mellitus without complication 923625782 E11.9 A1C 6.9 at Goal <7.0 advised to reduce ETOH doing well with more activity d/t job no med changes rto 6 months for MM Obesity 490379247 E66.9 BMI 30.4keep low fat, low carb dietc/w regular activity Alcohol dependence 61115 003 F10.20 etoh 4-5 x week few drinkswork ing on reducing weekday drinkingun derstands impact on blood sugar, liver Benign ess ential hypertension 9794639 I10 BP at goal c/w lisinopril continue to work on diet, exercise, and lowering salt intake as discussed Neuropathy due to diabetes mellitus 466579859 E11.40 A1C 6.9 up from 6.5is going to focus on diet, less weekday etohc/w metformin 2000 mg qdfully abn foot exam but stable discussed importance of checking feet regularly. no open toe shoesneed to protect feet Mixed hyperlipidemia 267 197576 E78.2 Cholestero l is at goal at 30c/w statinCont inue to work on diet and exercise as discussed Influenza vaccination declined 694520354 Z28.21 Health Concerns Section Related Observation LastModified by Organization Detai ls LastModified Time None Recorded Concern Status LastModified by Organization Details LastModified Time None Recorded Advance Directives Directive None Recorded Payers Encounter Date Sequence Insurance Name Policy Number Policy Padron Covered Member ID Padron Member ID Guarantor Name 11/10/2022 1 [employer] [employer] 111 Timo Meng [id number] Timo Meng 05/10/2023 1 [facility] [employer] [place] 111 Timo Meng [id number] Timo Meng 11/02/2023 1 [facility] [employer] [place] 111 Timo Meng [id number] Timo Meng 11/13/2023 1 [facility] [facility] EM[employer] PROGRAM 111 Timo Meng [id number] Timo Meng 05/15/2024 1 [facility] [facility] EMPL[employer]EE PROGRAM 111 Timo Meng [id number] Timo Meng Notes Date Note Type Note [...] in exercise capacity Aydee Clarke NP [address] [place], [address], [facility] 11/10/2022 09:20:06 3 text/html VMG DiabetesReported bypatient.Review [...] in exercise capacity saw dentist concern re: [id number] up from 6.4- has beenetoh 3-4 days a week - few after work Nikole Pandya. [address] [place], [address], [facility] 05/13/2023 15:47:09 4 text/html 10/30/2023 injury at [...] - heat feels better than the ice. uJnie Parekh MD [address] [place], [address], [facility] 11/02/2023 09:54:13 4 text/html Physical Exam/MaleReported bypatient.PHAPatient [...] identified barriers to care Context:Diabetes;Peripheral vascular disease (48408) Associated Symptoms:no muscle pain; no dyspnea; no [...] decline in exercise capacity Aydee Clarke NP [address] [place] [address], [phone], [facility] 11/13/2023 13:01:29 4 text/html VMG DiabetesReported bypatient.Review [...] identified barriers to care Context:Diabetes;Peripheral vascular disease (08910) Associated Symptoms:no muscle pain; no dyspnea; no [...] keeping it to weekends Aydee Clarke NP [address] [place] [address], [phone], [facility] 05/15/2024 08:59:35
--- OUTSIDE RECORDS SUMMARY | 2024-11-26 08:49 | XMS_ITS | Data Portability ---
Author Organization [facility], , [facility], OFFICE Address [address] [place] [address] [place] [address] Care Team Providers Care Housemaid Name Role Phone AYDEE CLARKE Primary Care Provider [phone] [facility] Community Marketing Coordinator [facility] Wastewater Operator [facility] Urologist [phone] Assessment Encounter Date Assessment Date Assessment LastModified [...] Details Appointments LAB Follow-Up 2024 07:30A M [facility] Lab Not available Not available Not available Wellness Visit 30 2024 09:15A Elmer Clarke, PABLO Not available Not available Not available Lab HbA1c (hemoglob in A1c), blood 2022 024 [facility], [address] [facility], [place], [address], 08/09/2023 10:57:33 Referral gastroent erologist referral - per dentist as significa nt erosion of enamel 2022 023 [facility], [address] [place], [address], 09/28/2023 12:31:18 Procedures None recorded. Surgeries None recorded. Imaging XR, ribs, unilatera l - eval for fractured ribs, s/p fall on stone wall on L side 2023 024 [facility] (Imaging), [address] , [place], [address], 11/02/2023 10:18:03 Medication Orders simvastat in 20 mg tablet 2023 024 [facility][id number], [address] [place] [address], [address], 05/15/2024 08:59:23 metformin ER 500 mg tablet,ex tended release 24 hr 2023 024 [facility] #0818, [address] [place] [address], [address], 05/15/2024 08:59:23 lisinopri l 10 mg tablet 2023 024 [facility]acy #0818, [address] [place], [address], 05/15/2024 08:59:22 ibuprofen 800 mg tablet 2023 024 [email or web address], [address] [place], [address], 11/13/2023 10:26:24 lisinopri l 10 mg tablet 2023 024 [facility] #0818, [address] [place], [address], 11/13/2023 10:26:18 ibuprofen 800 mg tablet 2023 024 [facility] #0818, [address] [place], [address], 11/02/2023 08:27:07 sildenafi l 50 mg tablet 2022 023 [facility] [address] [place], [address], 11/13/2023 09:54:42 Patient TargetsNo targets recorded. Patient Instructions Encounter Date Encounter Id Patient Instructions Last Modified By Organization Details Last Modified Time 11/10/2022 [id number] high cholesterol lifestyle changes pkeough Not available 11/10/2022 09:18:51 Well Visit 50 to 65: Care Instructions pkeough Not available 11/10/2022 09:18:50 11/13/2023 [id number] high blood pressure: care instructions pkeough Not available 11/13/2023 10:26:16 learning about high blood pressure pkeough Not available 11/13/2023 10:26:16 05/15/2024 [id number] high blood pressure: care instructions pkeough Not available 05/15/2024 08:59:20 learning about high blood pressure pkeough Not available 05/15/2024 08:59:20 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 3 Not Available [address], [address], 11/02/2022 15:34:56 11/03/19 23 11/02/2022 BASIC METAB OLIC PANEL B/C 17.0 ratio Not Available [address], [address], 11/02/2022 15:34:56 11/03/19 23 11/02/2022 BASIC METAB [...] be used in pregn babak. Not Available [address], [address], 11/02/2022 15:34:56 11/03/19 23 11/02/2022 BASIC METAB OLIC PANEL sodium 138 mmol/ L 136-14 5 Not Available [address], [address], 11/02/2022 15:34:56 11/03/19 23 11/02/2022 BASIC METAB OLIC PANEL potassium 4.3 mmol/ L 3.5-5. 1 Not Available [address], [address], 11/02/2022 15:34:56 11/03/19 23 11/02/2022 BASIC METAB OLIC PANEL chloride 102 mmol/ L 96-107 Not Available [address], [address], 11/02/2022 15:34:56 11/03/19 23 11/02/2022 BASIC METAB OLIC PANEL anion gap 9.2 5.0-15 .0 Not Available [address], [address], 11/02/2022 15:34:56 11/03/19 23 11/02/2022 BASIC METAB OLIC PANEL CO2 27 mmol/ L 21-32 Not Available [address], [address], 11/02/2022 15:34:56 11/03/19 23 11/02/2022 BASIC METAB OLIC PANEL calcium 8.9 mg/dL 8.5-10 .3 Not Available [address], [address], 11/02/2022 15:34:56 11/03/1911/02/2022 LIPID PANEL cholesterol 143 mg/dL <200 mg/dl Sudhir able 200-2 39 mg/dl Borde rline High >240 mg/dl High Not Available [address], [address], 11/02/2022 15:34:57 11/03/19 23 11/02/2022 LIPID PANEL triglyceride s 317 mg/dL high <150 mg/dL Viki l 150-1 99 mg/dL Borde rline High 200-4 99 mg/dL High >500 mg/dL Very High Not Available [address], [address], 11/02/2022 15:34:57 11/03/19 23 11/02/2022 LIPID PANEL direct HDL 38 mg/dL <40 mg/dl - Major Risk for CHD >60 mg/dl - Negat berta Risk for CHD Not Available [address], [address], 11/02/2022 15:34:57 11/03/1911/02/2022 DIREC T LDL direct [...] r is not necmeaghan maisha. Not Available [address], [address], 11/02/2022 16:48:05 05/03/2005/03/2023 HGB A1C hemoglobin A1C [...] furth er confi rmati on Not Available [address], [address], 05/03/2023 12:05:19 05/03/2005/03/2023 HGB A1C estimated average glucose 157.1 mg/dL Not Available [address], [address], 05/03/2023 12:05:19 05/03/2005/03/2023 BASIC METAB OLIC PANEL glucose 173 mg/dL 70-100 high Not Available [address], [address], 05/03/2023 12:12:20 05/03/2005/03/2023 BASIC METAB OLIC PANEL BUN 17 mg/dL 7-18 Not Available [address], [address], 05/03/2023 12:12:20 05/03/2005/03/2023 BASIC METAB OLIC PANEL creatinine 1.0 mg/dL 0.8-1. 3 Not Available [address], [address], 05/03/2023 12:12:20 05/03/2005/03/2023 BASIC METAB OLIC PANEL B/C 17.0 ratio Not Available [address], [address], 05/03/2023 12:12:05/03/2005/03/2023 BASIC METAB OLIC PANEL GFR [...] be used in pregn babak. Not Available [address], [address], 05/03/2023 12:12:20 05/03/2005/03/2023 BASIC METAB OLIC PANEL sodium 138 mmol/ L 136-14 5 Not Available [address], [address], 05/03/2023 12:12:20 05/03/2005/03/2023 BASIC METAB OLIC PANEL potassium 4.2 mmol/ L 3.5-5. 1 Not Available [address], [address], 05/03/2023 12:12:20 05/03/2005/03/2023 BASIC METAB OLIC PANEL chloride 102 mmol/ L 96-107 Not Available [address], [address], 05/03/2023 12:12:20 05/03/2005/03/2023 BASIC METAB OLIC PANEL anion gap 11.9 5.0-15 .0 Not Available [address], [address], 05/03/2023 12:12:20 05/03/2005/03/2023 BASIC METAB OLIC PANEL CO2 24 mmol/ L 21-32 Not Available [address], [address], 05/03/2023 12:12:20 05/03/20 23 05/03/2023 BASIC METAB OLIC PANEL calcium 9.0 mg/dL 8.5-10 .3 Not Available [address], [address], 05/03/2023 12:12:20 05/03/2005/03/2023 LIPID PANEL cholesterol 148 mg/dL <200 mg/dl Sudhir able 200-2 39 mg/dl Borde rline High >240 mg/dl High Not Available [address], [address], 05/03/2023 12:12:21 05/03/2005/03/2023 LIPID PANEL triglyceride s 323 mg/dL high <150 mg/dL Viki l 150-1 99 mg/dL Borde rline High 200-4 99 mg/dL High >500 mg/dL Very High Not Available [address], [address], 05/03/2023 12:12:21 05/03/20 23 05/03/2023 LIPID PANEL direct HDL 42 mg/dL <40 mg/dl - Major Risk for CHD >60 mg/dl - Negat berta Risk for CHD Not Available [address], [address], 05/03/2023 12:12:21 05/03/20 23 05/03/2023 DIREC T [...] r is not jose ferrera. Not Available [address], [address], 05/03/2023 14:38:05 05/03/20 23 05/03/2023 MICRO ALBUM IN/CR EATIN INE RATIO PANEL , URINE microalbumin 8.0 mg/L 1.3-20 .0 Not Available [address], [address], 05/03/2023 15:48:25 05/03/20 23 05/03/2023 MICRO ALBUM IN/CR EATIN INE RATIO PANEL , URINE creatinine urine 139.3 mg/dL 30.0-1 25.0 high Not Available [address], [address], 05/03/2023 15:48:25 05/03/20 23 05/03/2023 MICRO ALBUM IN/CR EATIN INE RATIO PANEL , URINE microalb/cre at ratio 5.7 mg/g_ creat 0.0-29 .0 Not Available [address], [address], 05/03/2023 15:48:25 08/09/19 24 08/09/2023 BASIC METAB OLIC PANEL glucose 168 mg/dL 70-100 high Not Available [address], [address], 08/09/2023 10:55:05 08/09/19 24 08/09/2023 BASIC METAB OLIC PANEL BUN 17 mg/dL 7-18 Not Available [address], [address], 08/09/2023 10:55:05 08/09/19 24 08/09/2023 BASIC METAB OLIC PANEL creatinine 1.1 mg/dL 0.8-1. 3 Not Available [address], [address], 08/09/2023 10:55:05 08/09/19 24 08/09/2023 BASIC METAB OLIC PANEL B/C 15.5 ratio Not Available [address], [address], 08/09/2023 10:55:05 08/09/19 24 08/09/2023 BASIC METAB [...] be used in pregn babak. Not Available [address], [address], 08/09/2023 10:55:05 08/09/19 24 08/09/2023 BASIC METAB OLIC PANEL sodium 139 mmol/ L 136-14 5 Not Available [address], [address], 08/09/2023 10:55:05 08/09/19 24 08/09/2023 BASIC METAB OLIC PANEL potassium 4.3 mmol/ L 3.5-5. 1 Not Available [address], [address], 08/09/2023 10:55:05 08/09/19 24 08/09/2023 BASIC METAB OLIC PANEL chloride 102 mmol/ L 96-107 Not Available [address], [address], 08/09/2023 10:55:05 08/09/19 24 08/09/2023 BASIC METAB OLIC PANEL anion gap 10.8 5.0-15 .0 Not Available [address], [address], 08/09/2023 10:55:05 08/09/19 24 08/09/2023 BASIC METAB OLIC PANEL CO2 26 mmol/ L 21-32 Not Available [address], [address], 08/09/2023 10:55:05 08/09/19 24 08/09/2023 BASIC METAB OLIC PANEL calcium 8.9 mg/dL 8.5-10 .3 Not Available [address], [address], 08/09/2023 10:55:05 08/09/19 24 08/09/2023 HGB A1C [...] furth er confi rmati on Not Available [address], [address], 08/09/2023 10:57:32 08/09/19 24 08/09/2023 HGB A1C estimated average glucose 157.1 mg/dL Not Available [address], [address], 08/09/2023 10:57:32 10/25/19 24 10/25/2023 HGB A1C [...] furth er confi rmati on Not Available [address], [address], 10/25/2023 11:15:39 10/25/19 24 10/25/2023 HGB A1C estimated average glucose 139.9 mg/dL Not Available [address], [address], 10/25/2023 11:15:39 10/25/19 24 10/25/2023 BASIC METAB OLIC PANEL glucose 149 mg/dL 70-100 high Not Available [address], [address], 10/25/2023 16:27:42 10/25/19 24 10/25/2023 BASIC METAB OLIC PANEL BUN 21 mg/dL 7-18 high Not Available [address], [address], 10/25/2023 16:27:42 10/25/19 24 10/25/2023 BASIC METAB OLIC PANEL creatinine 1.0 mg/dL 0.8-1. 3 Not Available [address], [address], 10/25/2023 16:27:42 10/25/19 24 10/25/2023 BASIC METAB OLIC PANEL B/C 21.0 ratio Not Available [address], [address], 10/25/2023 16:27:42 10/25/19 24 10/25/2023 BASIC METAB [...] be used in pregn babak. Not Available [address], [address], 10/25/2023 16:27:42 10/25/19 24 10/25/2023 BASIC METAB OLIC PANEL sodium 139 mmol/ L 136-14 5 Not Available [address], [address], 10/25/2023 16:27:42 10/25/19 24 10/25/2023 BASIC METAB OLIC PANEL potassium 4.4 mmol/ L 3.5-5. 1 Not Available [address], [address], 10/25/2023 16:27:42 10/25/19 24 10/25/2023 BASIC METAB OLIC PANEL chloride 101 mmol/ L 96-107 Not Available [address], [address], 10/25/2023 16:27:42 10/25/19 24 10/25/2023 BASIC METAB OLIC PANEL anion gap 12.9 5.0-15 .0 Not Available [address], [address], 10/25/2023 16:27:42 10/25/19 24 10/25/2023 BASIC METAB OLIC PANEL CO2 25 mmol/ L 21-32 Not Available [address], [address], 10/25/2023 16:27:42 10/25/19 24 10/25/2023 BASIC METAB OLIC PANEL calcium 9.1 mg/dL 8.5-10 .3 Not Available [address], [address], 10/25/2023 16:27:42 10/25/19 24 10/25/2023 LIPID PANEL cholesterol 113 mg/dL <200 mg/dl Sudhir able 200-2 39 mg/dl Borde rline High >240 mg/dl High Not Available [address], [address], 10/25/2023 16:27:43 10/25/19 24 10/25/2023 LIPID PANEL triglyceride s 205 mg/dL <150 mg/dL Viki l 150-1 99 mg/dL Borde rline High 200-4 99 mg/dL High >500 mg/dL Very High Not Available [address], [address], 10/25/2023 16:27:43 10/25/19 24 10/25/2023 LIPID PANEL direct HDL 42 mg/dL <40 mg/dl - Major Risk for CHD >60 mg/dl - Negat berta Risk for CHD Not Available [address], [address], 10/25/2023 16:27:43 10/25/19 24 10/25/2023 LDL - [...] r is not terrimeaghan maisha. Not Available [address], [address], 10/25/2023 16:27:44 10/25/19 24 10/26/2023 IMMUN OGLOB ULIN A immunoglobul in A 125 mg/dL 47-310 normal Not Available [facility] [address], [address], 10/26/2023 16:02:40 10/25/19 24 10/26/2023 TISSU E TRANS GLUTA SANDRINE E AB, IGA tissue transglutami nase Ab, IgA <1.0 U/mL normal Value Inter preta tion ----- ----- ----- ---- <15.0 Antib tobias not detec audelia > or = 15.0 Antib tobias detec audelia Not Available [facility] [address], [address], 10/26/2023 16:02:41 01/02/20 24 01/02/2024 POC GLU POC glu 179 70 - 100 high Not Available [facility] [address] [place] [address], [address], 01/04/2024 09:10:15 05/08/20 24 05/08/2024 HGB A1C [...] furth er confi rmati on Not Available [address], [address], 05/08/2024 11:51:31 05/08/20 24 05/08/2024 HGB A1C estimated average glucose 151.3 mg/dL Not Available [address], [address], 05/08/2024 11:51:31 05/08/20 24 05/08/2024 MICRO ALBUM IN/CR EATIN INE RATIO PANEL , URINE microalbumin 21.0 mg/L 1.3-20 .0 high Not Available [address], [address], 05/08/2024 14:38:50 05/08/2005/08/2024 MICRO ALBUM IN/CR EATIN INE RATIO PANEL , URINE creatinine urine 121.7 mg/dL 30.0-1 25.0 Not Available [address], [address], 05/08/2024 14:38:50 05/08/20 24 05/08/2024 MICRO ALBUM IN/CR EATIN INE RATIO PANEL , URINE microalb/cre at ratio 17.3 mg/g_ creat 0.0-29 .0 Not Available [address], [address], 05/08/2024 14:38:50 05/08/20 24 05/09/2024 BASIC METAB OLIC PANEL glucose 182 mg/dL 70-100 high Not Available [address], [address], 05/09/2024 15:14:00 05/08/20 24 05/09/2024 BASIC METAB OLIC PANEL BUN 15 mg/dL 7-18 Not Available [address], [address], 05/09/2024 15:14:00 05/08/20 24 05/09/2024 BASIC METAB OLIC PANEL creatinine 1.1 mg/dL 0.8-1. 3 Not Available [address], [address], 05/09/2024 15:14:00 05/08/20 24 05/09/2024 BASIC METAB OLIC PANEL B/C 13.6 ratio Not Available [address], [address], 05/09/2024 15:14:00 05/08/20 24 05/09/2024 BASIC METAB [...] be used in pregn babak. Not Available [address], [address], 05/09/2024 15:14:00 05/08/20 24 05/09/2024 BASIC METAB OLIC PANEL sodium 140 mmol/ L 136-14 5 Not Available [address], [address], 05/09/2024 15:14:00 05/08/20 24 05/09/2024 BASIC METAB OLIC PANEL potassium 4.9 mmol/ L 3.5-5. 1 Not Available [address], [address], 05/09/2024 15:14:00 05/08/20 24 05/09/2024 BASIC METAB OLIC PANEL chloride 101 mmol/ L 96-107 Not Available [address], [address], 05/09/2024 15:14:00 05/08/20 24 05/09/2024 BASIC METAB OLIC PANEL anion gap 9.0 5.0-15 .0 Not Available [address], [address], 05/09/2024 15:14:00 05/08/20 24 05/09/2024 BASIC METAB OLIC PANEL CO2 30 mmol/ L 21-32 Not Available [address], [address], 05/09/2024 15:14:00 05/08/20 24 05/09/2024 BASIC METAB OLIC PANEL calcium 9.5 mg/dL 8.5-10 .3 Not Available [address], [address], 05/09/2024 15:14:00 11/02/19 24 11/02/2023 XR, ribs, unila teral CLINIC AL HISTOR Y: Left-s ided chest wall pain after a fall. Histor y of old fractu res. TECHNI QUE: At least 3 views of the left ribs are obtain ed. COMPAR SANDEE: 2020, 017 FINDIN GS: There are executive producer ior and latera l fractu res of the left fourth , fifth, sixth ribs. There are fractu re along the latera l aspect of the left sevent h, eighth and ninth ribs. There are fractu re of along the executive producer ior and beata latera l aspect s [...] ended. Vinh Thurston ana: Heladio Ibrahim ms [facility] [address], [place], [address], 11/13/2023 10:06:59 Result Notes None recorded. Procedures Surgical History Date Name Laterality Status Provider Name and Address Organization Details Recorded Time 01/02/2024 Katiana - EGD completed Mynor Saab MD [address] [place] [address], [id number], [facility] 01/02/2024 07:51:46 Imaging Results Imaging Date Name Status LastModified by Organiz ation Details LastModified Time 11/02/2023 XR, ribs, unilateral completed [facility] [address], [place], [address], 11/13/2023 10:06:59 Procedure Notes None recorded. Medical [...] You Wear A Helmet When Biking? Yes [email or web address] Information not available 06/24/2015 What Is Your Level Of Caffeine Consumption? None [email or web address] Information not available 05/13/2020 How Much Tobacco Do You Chew? None Information not available 12/31/2012 What Type Of Diet Are You Following? REGULAR [email or web address] Information not available 06/24/2015 Which Illicit Or Recreational Drugs Have You Used? No Denies IVDU Information not available 01/15/2018 Do You Or Have You Ever Used E-cigarettes Or Vape? Never Used Electronic Cigarettes 10/28/2019 TG [email or web address] Information not available 10/28/2019 Education 4 Year College [email or web address] Information not available 06/08/2011 What Is Your Occupation? [employer] Previously [employer] Information not available 12/01/2015 How Many Days In The Past Year Have You Had A Heavy Drinking Consumption (4+ Female, 5+ Male)? 0 Information not available 12/31/2012 Are There Any Guns Present In Your Home? No [email or web address] Information not available 06/24/2015 Live Alone Or With Others? With Others [email or web address] Information not available 06/08/2011 Patient Has Health Care Proxy Signed And In Chart Yes [email or web address] Information not available 11/14/2022 Marital Status [email or web address] Informatio n not available 03/01/2012 Mosquito Repellent Used Routinely Yes Information not available 01/15/2018 What Was The Date Of Your Most Recent Tobacco Screening? 05/11/2022 05/11/22 CJ [email or web address] Information not available 05/11/2022 How Many Children Do You Have? 0 [email or web address] Information not available 06/08/2011 Seat Belts Used Routinely Yes [email or web address] Information not available 06/24/2015 Smoke Alarm In Home Yes [email or web address] Information not available 06/24/2015 Do You Or Have You Ever Used Smokeless Tobacco? Never Used Smokeless Tobacco 10/28/2019 TG [email or web address] Information not available 10/28/2019 How Much Tobacco Do You Smoke? No 05/11/22 CJ [email or web address] Information not available 05/11/2022 What Types Of Sporting Activities Do You Participate In? No Information not available 01/15/2018 General Stress Level Low [email or web address] Information not available 06/24/2015 Do You Use Sunscreen Routinely? Yes [email or web address] Information not available 06/24/2015 How Many Years Have You Smoked Tobacco? 0 [email or web address] Information not available 10/28/2019 Sex: Male Functional [...] SNOMED-CT Code Diagnosis ICD10 Code Diagnosis Note [id number] Raven Escobar MD , [facility], OFFICE [address] [place] [address] 08/28/2000 11:45:00 08/12/2008 02:02:29 [id number] Montana Foreman III, MD , [facility], OFFICE [address] [place] [address] 09/07/2006 09:25:16 09/07/2006 13:17:47 [id number] [facility] - [address] [place] [address] 09/27/2006 09:47:41 09/27/2006 09:47:45 [id number] Yung Escobar, OD [facility], [address] [address] 09/27/2006 10:01:46 09/27/2006 11:52:26 [id number] Yung Escobar, OD [facility], [address] [address] 10/15/2006 14:29:42 10/15/2006 17:10:27 [id number] Montana Foreman III, MD , [facility], OFFICE [address] [place] [address] 10/17/2006 08:03:38 10/17/2006 09:08:25 [id number] Montana Foreman III, MD , [facility], OFFICE [address] [place] [address] 01/09/2007 12:05:24 01/09/2007 14:30:41 [id number] [facility] LAB LAB - [address] [place] [address] 01/10/2007 07:28:27 01/10/2007 07:28:32 [id number] [facility] - [address] [place] [address] 01/11/2007 08:57:27 01/11/2007 08:57:35 [id number] Montana Foreman III, MD , [facility], OFFICE [address] [place] [address] 02/01/2007 08:12:35 02/01/2007 10:48:02 [id number] [facility] LAB - [address] [place] [address] 06/11/2007 07:56:03 06/11/2007 07:56:12 [id number] Montana Foreman III, MD , [facility], OFFICE [address] [place] [address] 06/25/2007 09:01:34 08/12/2008 02:02:29 [id number] Jaziel Love DPM Podiatry, [address] [place] [address] 07/09/2007 09:05:27 07/10/2007 09:23:03 [id number] [facility] LAB - [address] [place] [address] 11/19/2007 10:32:30 11/19/2007 10:32:45 [id number] Montana Foreman III, MD , [facility], OFFICE [address] [place] [address] 05/12/2009 10:30:12 05/13/2009 08:35:11 [id number] Montana Foreman III, MD , [facility], OFFICE [address] [place] [address] 06/09/2009 14:41:02 06/10/2009 09:44:59 [id number] Lolis Rincon PA-C Endocrino logy, [address] [place] [address] 06/23/2009 08:26:26 06/24/2009 09:26:23 [id number] Lolis Rincon PA-C Endocrino logy, [facility] [address] [place] [address] 08/19/2009 09:27:35 08/19/2009 14:10:39 [id number] Lolis Rincon PA-C Endocrino logy, [facility] [address] [place] [address] 11/18/2009 09:29:15 11/18/2009 10:41:01 [id number] Montana Foreman III, MD , [facility], OFFICE [address] [place] [address] [place] [address] 09/20/2010 12:01:55 09/20/2010 16:23:51 [id number] Montana Foreman III, MD , [facility], OFFICE [address] [place] [address] [place] [address] 06/21/2011 09:53:16 06/21/2011 10:13:02 [id number] Montana Foreman III, MD , [address] [place] [address] 01/23/2012 08:10:14 01/23/2012 09:04:59 [id number] Montana Foreman III, MD , [address] [place] [address] 03/01/2012 08:33:47 03/01/2012 09:08:14 [id number] Montana Foreman III, MD , [address] [place] [address] 12/31/2012 11:03:27 01/01/2013 07:35:53 [id number] Montana Foreman III, MD , [address] [place] [address] 05/19/2013 09:39:48 05/19/2013 09:56:44 [id number] MD RENU Delong III, [address] [place] [address] 08/28/2013 15:02:43 08/28/2013 15:25:22 [id number] MD RENU Delong III, [address] [place] [address] 1 02/26/2014 09:23:19 02/26/2014 09:55:23 [id number] MD RENU Delong III, [facility], OFFICE [address] [place] [address] [place] [address] 01/05/2015 10:38:43 01/05/2015 10:57:32 [id number] PABLO Sommers, [facility], OFFICE [address] [place] [address] [place] [address] 1 02/23/2015 09:02:42 02/23/2015 09:28:05 [id number] PABLO Sommers, [facility], OFFICE [address] [place] [address] [place] [address] 1 02/25/2015 09:28:28 02/25/2015 10:08:25 [id number] PABLO Sommers, [facility], [address] [place] [address] 1 02/26/2015 09:13:35 02/26/2015 09:42:40 [id number] PABLO Sommers, [facility], [address] [place] [address] 03/01/2015 09:16:53 03/01/2015 09:27:47 [id number] PABLO Sommers, [facility], [address] [place] [address] 1 06/24/2015 08:26:01 06/24/2015 09:06:08 [id number] Anali Yanez D.O. , [address] [place] [address] 1 12/01/2015 09:44:27 12/01/2015 10:33:57 [id number] MD RENU Barreto, [facility], [address] [place] [address] 1 01/25/2016 09:18:19 01/25/2016 10:06:23 [id number] Anali SEARS, [address] [place] [address] 1 06/28/2016 09:35:15 06/29/2016 09:39:46 [id number] Anali SEARS, [address] [place] [address] 1 10/10/2016 08:00:49 10/12/2016 15:46:30 [id number] Anali Yanez D.O. [facility], OFFICE [address] [place], [place] [address] 01/09/2017 07:57:33 01/10/2017 09:04:13 [id number] Anali Ellis.O. [facility], OFFICE [address] [place], [place] [address] 02/09/2017 11:28:09 02/09/2017 12:27:37 [id number] Anali Ellis.Matt [facility], OFFICE [address] [place], [place] [address] 01/15/2018 10:28:34 01/15/2018 11:35:54 [id number] Jobaudilio-Radha Prosper, DPM Podiatry, [address] [place] [address] 01/30/2018 11:02:26 01/30/2018 14:26:05 [id number] Anali Yanez D.O. [facility], OFFICE [address] [place], [place] [address] 01/30/2018 15:50:18 01/30/2018 18:24:23 [id number] Joudy-Radha Dinnall, DPM Podiatry, [address] [address] 02/12/2018 10:26:41 02/12/2018 11:12:01 [id number] Joudy-Radha Dinnall, DPM Podiatry, [facility] [address] [place] [address] 02/19/2018 08:51:40 02/19/2018 09:26:45 [id number] Joudy-Radha Dinnall, DPM Podiatry, [facility] [address] [place] [address] 03/05/2018 08:38:01 03/07/2018 14:19:36 [id number] Joudy-Radha Dinnall, DPM Podiatry, [address] [address] 05/07/2018 09:13:31 05/07/2018 09:50:36 [id number] Joudy-Radha Dinnall, DPM Podiatry, [address] [address] 05/21/2018 08:45:10 05/21/2018 16:20:21 [id number] Mitesh Cheng DPM Podiatry, [facility] [address] [place] [address] 07/09/2018 09:09:03 07/10/2018 08:20:30 [id number] Anali Furcolo D.O. [address] [place] [address] 09/06/2018 14:25:20 09/06/2018 15:02:23 [id number] Anali Furcolo D.O. [address] [place] [address] 03/10/2019 15:51:01 03/10/2019 16:23:56 [id number] Nikole Mcnair MD [address] [place] [address] 1 10/28/2019 08:30:56 10/28/2019 15:14:19 [id number] Anali Furcolo D.O. [address] [place] [address] 05/13/2020 10:57:05 05/14/2020 11:47:45 [id number] Anali Furcolo D.O. [address] [place] [address] 1 05/27/2020 09:04:01 05/28/2020 15:26:35 [id number] Anali Furcolo D.O. [address] [place] [address] 10/28/2020 07:51:21 11/19/2020 16:22:56 [id number] Anali Furcolo D.O. [address] [place] [address] 11/18/2020 08:16:03 11/19/2020 16:14:08 [id number] Mynor Saab MD [facility], [facility] [address] [place] [address] 11/26/2020 06:44:42 11/26/2020 12:47:20 [id number] Anali Furcolo D.O. FP, [place] [address] [place] [address] 06/03/2021 14:03:53 06/03/2021 14:47:31 [id number] Jarocho Browne MD [address] [place] [address] 06/13/2021 08:59:47 06/13/2021 09:45:05 [id number] Anali Yanez D.O. [address] [place] [address] 11/03/2021 08:30:54 11/03/2021 09:02:37 [id number] Anali Yanez D.O. [address] [place] [address] 05/11/2022 09:14:18 05/11/2022 09:53:17 [id number] Anali Yanez D.O. [address] [place] [address] 1 11/10/2022 08:27:54 11/10/2022 09:18:34 [id number] Jarocho Browne MD [address] [place] [address] 1 05/10/2023 09:15:35 05/14/2023 08:33:22 [id number] Mynor Saab MD [address] [place] [address] 01/02/2024 06:45:56 01/02/2024 10:51:16 [id number] Nikole Pandya . [address] [place] [address] 1 11/02/2023 08:07:58 11/02/2023 10:18:03 [id number] Jarocho Browne MD [address] [place] [address] 1 11/13/2023 09:46:52 11/13/2023 13:24:43 [id number] Jarocho Browne MD [address] [place] [address] 05/15/2024 08:13:22 05/15/2024 10:18:36 Health Concerns Section Related Observation LastModified by Organization Detai ls LastModified Time None Recorded Concern Status LastModified by Organization Details LastModified Time None Recorded Advance Directives Directive None Recorded Payers Encounter Date Sequence Insurance Name Policy Number Policy Padron Covered Member ID Padron Member ID Guarantor Name 11/10/2022 1 [place] 111 Timo Meng [id number] Timo Meng 05/10/2023 1 [place] 111 Timo Meng [id number] Timo Meng 11/02/2023 1 [place] 111 Timo Meng [id number] Timo Meng 11/13/2023 1 [place] 111 Timo Meng [id number] Timo Meng 05/15/2024 1 [place] 111 Timo Meng [id number] Timo Meng
--- OUTSIDE RECORDS SUMMARY | 2024-11-26 08:49 | XMS_ITS | Encounter Summary ---
Author Organization [facility] Address [address] [facility] [address] [place] [address] Phone Care Team Providers Care Milieu Technician Name Role Phone JobAnali bennett Blaze MENA Primary Care Provider [phone] Orin Joshi NP Primary Care Provider [phone] Encounter Details Date Type Department Care Team (Latest Contact Info) Description 11/23/2020 Transcribe Orders Virtual Department [address] [place] [address] Mynor Saab MD [address] [place] [address] [email or web address] Pre-procedure lab exam (Primary Dx) Social History [...] Order (11/23/2020 1:55 PM EDT) COVID-19 Comment [id number] [facility] COVID Testing Status Sent to [facility] 11/23/2020 1:55 PM EDT 11/23/2020 4:51 PM EDT Mynor Saab MD BODY FLUIDS AND STOO LS ORDERABLES [facility] [address] [place] [address] documented in this encounter Visit Diagnoses Diagnosis Pre-procedure lab exam- Primary Pre-procedural laboratory examination documented in this encounter Care Teams Milieu Technician Relationship Specialty Start Date End Date Anali Yanez DO [address] [place] [address] PCP - General Internal Medicine 01/31/18 11/25/20 Orin Joshi NP [address] [place] [address] PCP - General 11/26/20 documented as of this encounter Additional Source Comments The information contained in this document represents components of the legal health record. It is not the complete legal health record.[facility]
--- OUTSIDE RECORDS SUMMARY | 2024-11-26 08:49 | XMS_ITS | Encounter Summary ---
Author Organization [facility] Address [address] [facility] [address] [place] [address] Phone Care Team Providers Care Buffer Operator Name Role Phone Anali Yanez DO Primary Care Provider [phone] Orin Joshi NP Primary Care Provider [phone] Encounter Details Date Type Department Care Team (Late st Contact Info) Description 02/04/2018 Procedure Pass OR Admitting Dept - Virtual Department [address] [place] [address] Social History Tobacco Use Types Packs/Day Years [...] on filedocumented in this encounter Care Teams Buffer Operator Relationship Specialty Start Date End Date Anali Yanez DO [address] [place] [address] PCP - General Internal Medicine 01/31/18 11/25/20 Orin Joshi NP [address] [place] [address] PCP - General 11/26/20 documented as of this encounter Additional Source Comments The information contained in this document represents components of the legal health record. It is not the complete legal health record.[facility]
== END 2024-11-26 09:12 | disposition home or self-care (01) ==
LOC: HO.HOS 08:33
PROVIDERS: Visit Provider Orthopaedic Surgery
DX: M65.4 Radial styloid tenosynovitis [de Quervain] (principal)
CPT/HCPCS: 99024

== ENCOUNTER 2024-12-04 08:38 | Outpatient (AMB) | payer BC, SELFPAY ==
--- NOTE | 2024-12-04 08:38 | A.OFFVIS_ITS ---
Intake Visit Reasons: 3m Lab follow up Intake Note: Pt presents as a telehealth visit today for a 3 month lab follow up. Urology Meds:Tadalafil Allergies No Known Allergies Allergy (Verified 12/24/24 08:54) HPI Comments Details: Dulce is a pleasant male. He is a patient of . He seen for the following urologic conditions - lower urinary tract symptoms - erectile dysfunction associated with diabetes - borderline testosterone Telemedicine Evaluation 15 min Consultation DoximAstley Clarke Sharif Video Follow-up daily tadalafil plus on demand T remains borderline Refill medications Six-month follow-up lab Erectile dysfunction Longstanding diabetic Managed with oral medications Progressive difficulty with maintaining erection Trial on demand tadalafil Borderline testosterone Labs - 08/16 testosterone 373, luteinizing hormone 8.9 Bladder outlet obstruction Nocturia 1-2 Feeling of incomplete bladder emptying Daily tadalafil PFSH Medical History Erectile dysfunction Hypercholesteremia Diabetes Hypertension Surgical History Hx of colonoscopy Social History Are you a primary customer care associate to a significant other at home: No Do you presently have visiting nurse or other home services: No Patient Tobacco Use Status: Never used Tobacco Current occupation: [employer] Review of Systems Const All systems reviewed & are unremarkable except as noted in HPI and below Denies chills and Denies fever(s) Card Reports no additional complaints and Denies syncope Resp Denies cough GI Denies abdominal pain and Denies heartburn Reports as per HPI and Denies change in libido Musc Reports no additional complaints Neuro Denies syncope Psych Denies change in libido Endo Denies change in libido Physical Exam Telemedicine evaluation Appropriate responses Regular breathing rate and rhythm HEENT Head: Yes normal to inspection Ears: hearing grossly normal bilaterally Eyes General: appearance normal, both eyes and all related structures Neck Neck: Yes normal visual inspection Chest Chest palpation & inspection: normal inspection of the chest Resp Effort & Inspection: normal respiratory effort and able to speak in complete sentences Telehealth Telehealth Telehealth Platform: [employer] Location of provider rendering services: practice address Location of patient: address on file Patient Identification confirmed using: Name, : Yes Telehealth method: video Patient verbally consented to treatment: Yes Patient verbally consented to billing insurance company: Yes Patient informed of any privacy concerns related to visit: Yes Minutes spent on Phone/Video with Pt.: 15 Assessment & Plan Assessment & Plan (1) Erectile dysfunction associated with type 2 diabetes mellitus: Code(s): E11.69 - Type 2 diabetes mellitus with other specified complication; N52.1 - Erectile dysfunction due to diseases classified elsewhere Category: Medical (2) Bladder outlet obstruction: Code(s): N32.0 - Bladder-neck obstruction Category: Medical Plan Continue medications Six-month follow-up lab work Orders: Orders Testosterone, Free/Total 6 Months R68.82 - Decreased libido, R79.89 - Other s pecified abnormal findings of blood chemistry Patient Instructions: This note is constructed using voice recognition software. While every effort has been made to ensure accuracy septic technician errors may have been included. Imaging studies, laboratory and physical exam results were discussed and reviewed in detail. No major barriers to patient understanding were identified. An opportunity to ask questions regarding the treatment plan was provided. All questions were answered. The patient expressed understanding and agreement with the above treatment plan. The patient is aware they should contact our office by phone for worsening of their current condition or the appearance of new urologic symptoms. Compliance is encouraged with any medications and followup testing that is ordered. It is a privilege to participate in the urologic care of your patient. If you have any questions or concerns regarding treatment for the above conditions, or other urologic issues, please do not hesitate to contact me. The office telephone contact is [phone]. Sincerely, Dr Chau Lopez MD, [facility] - Urology Compassionate Specialist Care for the Genitourinary System Coding Level of Care Code Tele Est Pt Level 3 (79374) Complex EM visit Add On G2211 Diagnoses Erectile dysfunction associated with type 2 diabetes mellitus E11.69; N52.1 Bladder outlet obstruction N32.0
--- OUTSIDE RECORDS SUMMARY | 2024-12-04 08:59 | XMS_ITS | Clinical Summary ---
Author Organization [facility] Address [address] [facility] [address] [place] [address] Phone Care Team Providers Care Clinical Admissions Manager Name Role Phone Orin Joshi NP Primary Care Provider Allergies No known active allergies Medications simvastatin (ZOCOR) 20 MG tablet Take 20 mg by mouth nightly. Active metformin HCl (METFORMIN ORAL) Take 500 tablets by mouth 2 (two) times a day. Active lisinopril (PRINIVIL,ZESTR IL) 10 MG tablet Take 10 mg by mouth daily. Active omega 8-lmk-jnk-fish oil 1,000 mg (120 mg-180 mg) Cap [...] Recorded Sex Assigned at Not on file Legal Sex Male 10:32 PM EDT Gender Identity Not on file Sexual Orientation [...] this topic Medical Devices Not on file Insurance [employer] Care Teams Clinical Admissions Manager Relationship Specialty Start Date End Date Orin Joshi NP [address] [place] [address] PCP - General 11/26/20 Additional Source Comments The information contained in this document represents components of the legal health record. It is not the complete legal health record.[facility]
--- OUTSIDE RECORDS SUMMARY | 2024-12-04 09:00 | XMS_ITS | Data Portability ---
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 [facility] Urologist Assessment Encounter Date Assessment [...] Details Appointments LAB Follow-Up 2024 07:30A M [facility] Not available Not available Not available Wellness Visit 30 2024 09:15A M Aydee Clarke PABLO Not available Not available Not available Lab HbA1c (hemoglob in A1c), blood 2022 024 [facility], [address], [place], [address], 08/09/2023 10:57:33 Referral gastroent erologist referral - per dentist as significa nt erosion of enamel 2022 023 [facility], [address] [place], [address], 09/28/2023 12:31:18 Procedures None recorded. Surgeries None recorded. Imaging XR, ribs, unilatera l - eval for fractured ribs, s/p fall on stone wall on L side 2023 024 [facility] (Imaging), [address] , [place], [address], 11/02/2023 10:18:03 Medication Orders simvastat in 20 mg tablet 2023 024 [facility]acy #[id number], [address] [place] [address], [address], 05/15/2024 08:59:23 metformin ER 500 mg tablet,ex tended release 24 hr 2023 024 [facility] #[id number], [address] [place], [address], 05/15/2024 08:59:23 lisinopri l 10 mg tablet 2023 024 [facility] #0818, [address] [place], [address], 05/15/2024 08:59:22 ibuprofen 800 mg tablet 2023 024 [id number], [address] [place], [address], 11/13/2023 10:26:24 lisinopri l 10 mg tablet 2023 024 [facility] #0818, [address] [place], [address], 11/13/2023 10:26:18 ibuprofen 800 mg tablet 2023 024 [facility] #0818, [address] [place], [address], 11/02/2023 08:27:07 sildenafi l 50 mg tablet 2022 023 [id number], [address] [place], [address], 11/13/2023 09:54:42 Patient TargetsNo targets recorded. Patient Instructions Encounter Date Encounter Id Patient Instructions Last Modified By Organization Details Last Modified Time 11/10/2022 [id number] high cholesterol lifestyle changes pkeough Not available 11/10/2022 09:18:51 Well Visit 50 to 65: Care Instructions pkeough Not available 11/10/2022 09:18:50 11/13/2023 [id number] high blood pressure: care instructions pkeough Not available 11/13/2023 10:26:16 learning about high blood pressure pkeough Not available 11/13/2023 10:26:16 05/15/2024 [id number] high blood pressure: care instructions pkeough Not available 05/15/2024 08:59:20 learning about high blood pressure pkeough Not available 05/15/2024 08:59:20 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 3 Not Available [address], [address], 11/02/2022 15:34:56 11/03/19 23 11/02/2022 BASIC METAB OLIC PANEL B/C 17.0 ratio Not Available [address], [address], 11/02/2022 15:34:56 11/03/19 23 11/02/2022 BASIC METAB [...] be used in pregn babak. Not Available [address], [address], 11/02/2022 15:34:56 11/03/19 23 11/02/2022 BASIC METAB OLIC PANEL sodium 138 mmol/ L 136-14 5 Not Available [address], [address], 11/02/2022 15:34:56 11/03/19 23 11/02/2022 BASIC METAB OLIC PANEL potassium 4.3 mmol/ L 3.5-5. 1 Not Available [address], [address], 11/02/2022 15:34:56 11/03/19 23 11/02/2022 BASIC METAB OLIC PANEL chloride 102 mmol/ L 96-107 Not Available [address], [address], 11/02/2022 15:34:56 11/03/19 23 11/02/2022 BASIC METAB OLIC PANEL anion gap 9.2 5.0-15 .0 Not Available [address], [address], 11/02/2022 15:34:56 11/03/19 23 11/02/2022 BASIC METAB OLIC PANEL CO2 27 mmol/ L 21-32 Not Available [address], [address], 11/02/2022 15:34:56 11/03/19 23 11/02/2022 BASIC METAB OLIC PANEL calcium 8.9 mg/dL 8.5-10 .3 Not Available [address], [address], 11/02/2022 15:34:56 11/03/1911/02/2022 LIPID PANEL cholesterol 143 mg/dL <200 mg/dl Sudhir able 200-2 39 mg/dl Borde rline High >240 mg/dl High Not Available [address], [address], 11/02/2022 15:34:57 11/03/19 23 11/02/2022 LIPID PANEL triglyceride s 317 mg/dL high <150 mg/dL Viki l 150-1 99 mg/dL Borde rline High 200-4 99 mg/dL High >500 mg/dL Very High Not Available [address], [address], 11/02/2022 15:34:57 11/03/19 23 11/02/2022 LIPID PANEL direct HDL 38 mg/dL <40 mg/dl - Major Risk for CHD >60 mg/dl - Negat berta Risk for CHD Not Available [address], [address], 11/02/2022 15:34:57 11/03/1911/02/2022 DIREC T LDL direct [...] r is not necmeaghan maisha. Not Available [address], [address], 11/02/2022 16:48:05 05/03/20 23 05/03/2023 HGB A1C [...] furth er confi rmati on Not Available [address], [address], 05/03/2023 12:05:19 05/03/2005/03/2023 HGB A1C estimated average glucose 157.1 mg/dL Not Available [address], [address], 05/03/2023 12:05:19 05/03/2005/03/2023 BASIC METAB OLIC PANEL glucose 173 mg/dL 70-100 high Not Available [address], [address], 05/03/2023 12:12:20 05/03/2005/03/2023 BASIC METAB OLIC PANEL BUN 17 mg/dL 7-18 Not Available [address], [address], 05/03/2023 12:12:20 05/03/2005/03/2023 BASIC METAB OLIC PANEL creatinine 1.0 mg/dL 0.8-1. 3 Not Available [address], [address], 05/03/2023 12:12:20 05/03/2005/03/2023 BASIC METAB OLIC PANEL B/C 17.0 ratio Not Available [address], [address], 05/03/2023 12:12:20 05/03/2005/03/2023 BASIC METAB OLIC PANEL [...] be used in pregn babak. Not Available [address], [address], 05/03/2023 12:12:20 05/03/2005/03/2023 BASIC METAB OLIC PANEL sodium 138 mmol/ L 136-14 5 Not Available [address], [address], 05/03/2023 12:12:20 05/03/2005/03/2023 BASIC METAB OLIC PANEL potassium 4.2 mmol/ L 3.5-5. 1 Not Available [address], [address], 05/03/2023 12:12:20 05/03/2005/03/2023 BASIC METAB OLIC PANEL chloride 102 mmol/ L 96-107 Not Available [address], [address], 05/03/2023 12:12:20 05/03/2005/03/2023 BASIC METAB OLIC PANEL anion gap 11.9 5.0-15 .0 Not Available [address], [address], 05/03/2023 12:12:20 05/03/2005/03/2023 BASIC METAB OLIC PANEL CO2 24 mmol/ L 21-32 Not Available [address], [address], 05/03/2023 12:12:20 05/03/20 23 05/03/2023 BASIC METAB OLIC PANEL calcium 9.0 mg/dL 8.5-10 .3 Not Available [address], [address], 05/03/2023 12:12:20 05/03/2005/03/2023 LIPID PANEL cholesterol 148 mg/dL <200 mg/dl Sudhir able 200-2 39 mg/dl Borde rline High >240 mg/dl High Not Available [address], [address], 05/03/2023 12:12:21 05/03/20 23 05/03/2023 LIPID PANEL triglyceride s 323 mg/dL high <150 mg/dL Viki l 150-1 99 mg/dL Borde rline High 200-4 99 mg/dL High >500 mg/dL Very High Not Available [address], [address], 05/03/2023 12:12:21 05/03/20 23 05/03/2023 LIPID PANEL direct HDL 42 mg/dL <40 mg/dl - Major Risk for CHD >60 mg/dl - Negat berta Risk for CHD Not Available [address], [address], 05/03/2023 12:12:21 05/03/20 23 05/03/2023 DIREC T [...] r is not jose ferrera. Not Available [address], [address], 05/03/2023 14:38:05 05/03/20 23 05/03/2023 MICRO ALBUM IN/CR EATIN INE RATIO PANEL , URINE microalbumin 8.0 mg/L 1.3-20 .0 Not Available [address], [address], 05/03/2023 15:48:25 05/03/20 23 05/03/2023 MICRO ALBUM IN/CR EATIN INE RATIO PANEL , URINE creatinine urine 139.3 mg/dL 30.0-1 25.0 high Not Available [address], [address], 05/03/2023 15:48:25 05/03/20 23 05/03/2023 MICRO ALBUM IN/CR EATIN INE RATIO PANEL , URINE microalb/cre at ratio 5.7 mg/g_ creat 0.0-29 .0 Not Available [address], [address], 05/03/2023 15:48:25 08/09/19 24 08/09/2023 BASIC METAB OLIC PANEL glucose 168 mg/dL 70-100 high Not Available [address], [address], 08/09/2023 10:55:05 08/09/19 24 08/09/2023 BASIC METAB OLIC PANEL BUN 17 mg/dL 7-18 Not Available [address], [address], 08/09/2023 10:55:05 08/09/19 24 08/09/2023 BASIC METAB OLIC PANEL creatinine 1.1 mg/dL 0.8-1. 3 Not Available [address], [address], 08/09/2023 10:55:05 08/09/19 24 08/09/2023 BASIC METAB OLIC PANEL B/C 15.5 ratio Not Available [address], [address], 08/09/2023 10:55:05 08/09/19 24 08/09/2023 BASIC METAB [...] be used in pregn babak. Not Available [address], [address], 08/09/2023 10:55:05 08/09/19 24 08/09/2023 BASIC METAB OLIC PANEL sodium 139 mmol/ L 136-14 5 Not Available [address], [address], 08/09/2023 10:55:05 08/09/19 24 08/09/2023 BASIC METAB OLIC PANEL potassium 4.3 mmol/ L 3.5-5. 1 Not Available [address], [address], 08/09/2023 10:55:05 08/09/19 24 08/09/2023 BASIC METAB OLIC PANEL chloride 102 mmol/ L 96-107 Not Available [address], [address], 08/09/2023 10:55:05 08/09/19 24 08/09/2023 BASIC METAB OLIC PANEL anion gap 10.8 5.0-15 .0 Not Available [address], [address], 08/09/2023 10:55:05 08/09/19 24 08/09/2023 BASIC METAB OLIC PANEL CO2 26 mmol/ L 21-32 Not Available [address], [address], 08/09/2023 10:55:05 08/09/19 24 08/09/2023 BASIC METAB OLIC PANEL calcium 8.9 mg/dL 8.5-10 .3 Not Available [address], [address], 08/09/2023 10:55:05 08/09/19 24 08/09/2023 HGB A1C [...] furth er confi rmati on Not Available [address], [address], 08/09/2023 10:57:32 08/09/19 24 08/09/2023 HGB A1C estimated average glucose 157.1 mg/dL Not Available [address], [address], 08/09/2023 10:57:32 10/25/19 24 10/25/2023 HGB A1C [...] furth er confi rmati on Not Available [address], [address], 10/25/2023 11:15:39 10/25/19 24 10/25/2023 HGB A1C estimated average glucose 139.9 mg/dL Not Available [address], [address], 10/25/2023 11:15:39 10/25/19 24 10/25/2023 BASIC METAB OLIC PANEL glucose 149 mg/dL 70-100 high Not Available [address], [address], 10/25/2023 16:27:42 10/25/19 24 10/25/2023 BASIC METAB OLIC PANEL BUN 21 mg/dL 7-18 high Not Available [address], [address], 10/25/2023 16:27:42 10/25/19 24 10/25/2023 BASIC METAB OLIC PANEL creatinine 1.0 mg/dL 0.8-1. 3 Not Available [address], [address], 10/25/2023 16:27:42 10/25/19 24 10/25/2023 BASIC METAB OLIC PANEL B/C 21.0 ratio Not Available [address], [address], 10/25/2023 16:27:42 10/25/19 24 10/25/2023 BASIC METAB [...] be used in pregn babak. Not Available [address], [address], 10/25/2023 16:27:42 10/25/19 24 10/25/2023 BASIC METAB OLIC PANEL sodium 139 mmol/ L 136-14 5 Not Available [address], [address], 10/25/2023 16:27:42 10/25/19 24 10/25/2023 BASIC METAB OLIC PANEL potassium 4.4 mmol/ L 3.5-5. 1 Not Available [address], [address], 10/25/2023 16:27:42 10/25/19 24 10/25/2023 BASIC METAB OLIC PANEL chloride 101 mmol/ L 96-107 Not Available [address], [address], 10/25/2023 16:27:42 10/25/19 24 10/25/2023 BASIC METAB OLIC PANEL anion gap 12.9 5.0-15 .0 Not Available [address], [address], 10/25/2023 16:27:42 10/25/19 24 10/25/2023 BASIC METAB OLIC PANEL CO2 25 mmol/ L 21-32 Not Available [address], [address], 10/25/2023 16:27:42 10/25/19 24 10/25/2023 BASIC METAB OLIC PANEL calcium 9.1 mg/dL 8.5-10 .3 Not Available [address], [address], 10/25/2023 16:27:42 10/25/19 24 10/25/2023 LIPID PANEL cholesterol 113 mg/dL <200 mg/dl Sudhir able 200-2 39 mg/dl Borde rline High >240 mg/dl High Not Available [address], [address], 10/25/2023 16:27:43 10/25/19 24 10/25/2023 LIPID PANEL triglyceride s 205 mg/dL <150 mg/dL Viki l 150-1 99 mg/dL Borde rline High 200-4 99 mg/dL High >500 mg/dL Very High Not Available [address], [address], 10/25/2023 16:27:43 10/25/19 24 10/25/2023 LIPID PANEL direct HDL 42 mg/dL <40 mg/dl - Major Risk for CHD >60 mg/dl - Negat berta Risk for CHD Not Available [address], [address], 10/25/2023 16:27:43 10/25/19 24 10/25/2023 LDL - [...] r is not terrimeaghan maisha. Not Available [address], [address], 10/25/2023 16:27:44 10/25/19 24 10/26/2023 IMMUN OGLOB ULIN A immunoglobul in A 125 mg/dL 47-310 normal Not Available [email or web address] [address], [address], 10/26/2023 16:02:40 10/25/19 24 10/26/2023 TISSU E TRANS GLUTA SANDRINE E AB, IGA tissue transglutami nase Ab, IgA <1.0 U/mL normal Value Inter preta tion ----- ----- ----- ---- <15.0 Antib tobias not detec audelia > or = 15.0 Antib tobias detec audelia Not Available [email or web address] [address], [address], 10/26/2023 16:02:41 01/02/20 24 01/02/2024 POC GLU POC glu 179 70 - 100 high Not Available [facility] [address] [place] [address], [address], 01/04/2024 09:10:15 05/08/20 24 05/08/2024 HGB A1C [...] furth er confi rmati on Not Available [address], [address], 05/08/2024 11:51:31 05/08/20 24 05/08/2024 HGB A1C estimated average glucose 151.3 mg/dL Not Available [address], [address], 05/08/2024 11:51:31 05/08/20 24 05/08/2024 MICRO ALBUM IN/CR EATIN INE RATIO PANEL , URINE microalbumin 21.0 mg/L 1.3-20 .0 high Not Available [address], [address], 05/08/2024 14:38:50 05/08/2005/08/2024 MICRO ALBUM IN/CR EATIN INE RATIO PANEL , URINE creatinine urine 121.7 mg/dL 30.0-1 25.0 Not Available [address], [address], 05/08/2024 14:38:50 05/08/20 24 05/08/2024 MICRO ALBUM IN/CR EATIN INE RATIO PANEL , URINE microalb/cre at ratio 17.3 mg/g_ creat 0.0-29 .0 Not Available [address], [address], 05/08/2024 14:38:50 05/08/20 24 05/09/2024 BASIC METAB OLIC PANEL glucose 182 mg/dL 70-100 high Not Available [address], [address], 05/09/2024 15:14:00 05/08/20 24 05/09/2024 BASIC METAB OLIC PANEL BUN 15 mg/dL 7-18 Not Available [address], [address], 05/09/2024 15:14:00 05/08/20 24 05/09/2024 BASIC METAB OLIC PANEL creatinine 1.1 mg/dL 0.8-1. 3 Not Available [address], [address], 05/09/2024 15:14:00 05/08/20 24 05/09/2024 BASIC METAB OLIC PANEL B/C 13.6 ratio Not Available [address], [address], 05/09/2024 15:14:00 05/08/20 24 05/09/2024 BASIC METAB [...] be used in pregn babak. Not Available [address], [address], 05/09/2024 15:14:00 05/08/20 24 05/09/2024 BASIC METAB OLIC PANEL sodium 140 mmol/ L 136-14 5 Not Available [address], [address], 05/09/2024 15:14:00 05/08/20 24 05/09/2024 BASIC METAB OLIC PANEL potassium 4.9 mmol/ L 3.5-5. 1 Not Available [address], [address], 05/09/2024 15:14:00 05/08/20 24 05/09/2024 BASIC METAB OLIC PANEL chloride 101 mmol/ L 96-107 Not Available [address], [address], 05/09/2024 15:14:00 05/08/20 24 05/09/2024 BASIC METAB OLIC PANEL anion gap 9.0 5.0-15 .0 Not Available [address], [address], 05/09/2024 15:14:00 05/08/20 24 05/09/2024 BASIC METAB OLIC PANEL CO2 30 mmol/ L 21-32 Not Available [address], [address], 05/09/2024 15:14:00 05/08/20 24 05/09/2024 BASIC METAB OLIC PANEL calcium 9.5 mg/dL 8.5-10 .3 Not Available [address], [address], 05/09/2024 15:14:00 11/02/19 24 11/02/2023 XR, ribs, unila teral CLINIC AL HISTOR Y: Left-s ided chest wall pain after a fall. Histor y of old fractu res. TECHNI QUE: At least 3 views of the left ribs are obtain ed. COMPAR SANDEE: 2020, 017 FINDIN GS: There are hogshead stock clerk ior and latera l fractu res of the left fourth , fifth, sixth ribs. There are fractu re along the latera l aspect of the left sevent h, eighth and ninth ribs. There are fractu re of along the hogshead stock clerk ior and beata latera l aspect s [...] everett Physic ana: Shanatalie steffanie Patrice ms [facility] (Imaging) [address] , [place], [address], 11/13/2023 10:06:59 Result Notes None recorded. Problems Name Problem SNOMED Code Status Onset Date Resolution Date Notes Provider Name and Address Organization Details Recorded Time Benign essentia l hyperten dorys 6407783 Active Not Available [facility] 2 09:32:40 Neuropat hy due to diabetes mellitus 846875660 Active Not Available [facility] 2 09:32:40 Alcohol dependen ce 45526300 Active 2015 Not Available [facility] 2 09:32:40 Amputate d toe 935560873 Active 2018 Not Available 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 2 09:32:40 Injury of finger 13526319 Completed 200003/01/2012 Aydee Clarke NP [address] [place] [address], [address] , [facility] 6 10:22:10 Testicul ar hypofunc tion 648321576 Completed 200603/01/2012 Aydee Clarke NP [address] [place] [address], [address] , [facility] 6 10:22:10 Essentia l hyperten dorys 74323531 Completed 200003/01/2012 Aydee Clarke NP [address] [place] [address], [address] , [facility] 6 10:22:10 Diabetes mellitus 45436651 Completed 02/26/2014 Aydee Clarke NP [address] [place] [address], [address] , [facility] 6 10:22:10 Type 2 diabetes mellitus without complica tion 392415757 Active 2006 Not Available [facility] 2 09:32:40 Insect bite to trunk - nonvenom ous 924173321 Completed 03/01/2012 Aydee Clarke NP [address] [place] [address], [address] , [facility] 6 10:22:10 Benign essentia l hyperten dorys 3664268 Completed 200603/01/2012 Aydee Clarke NP [address] [place] [address], [address] , [facility] 6 10:22:10 Atrial fibrilla tion 12194541 Completed 03/01/2012 Aydee Clarke NP [address] [place] [address], [address] , [facility] 6 10:22:10 Morbid obesity 711997352 Completed 200603/01/2012 Aydee Clarke NP [address] [place] [address], [address] , [facility] 6 10:22:10 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 2006 Not Available [facility] 2 09:32:40 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 Procedures Surgical History Date Name Laterality Status Provider Name and Address Organization Details Recorded Time 2 Obesity counseling completed Aydee Clarke NP [address] [place] [address], [address], [facility] 11/03/2021 09:05:56 2 prevention-card iovascular risk reduction counseling completed Aydee Clarke NP [address] [place] [address], [address], [facility] 11/03/2021 09:05:36 1 Katiana - Colonoscopy completed Mynor Saab MD [address] [place] [address], [address], [facility] 11/26/2020 07:46:53 1 prevention-card iovascular risk reduction counseling completed Esther Melendez [facility] 10/28/2020 07:54:46 1 prevention-vianey al alcohol misuse screening completed Esther Melendez [facility] 10/28/2020 07:54:46 0 prevention-card iovascular risk reduction counseling completed Esther Melendez [facility] 05/13/2020 10:57:32 0 prevention-vianey al alcohol misuse screening completed Esther Melendez [facility] 05/13/2020 10:57:32 5 Destruction of skin lesion completed Montana Foreman III, MD [address] [place] [address], [address], [facility] 01/05/2015 10:59:27 Imaging Results Imaging Date Name Status LastModified by Organiz ation Details LastModified Time 11/02/2023 XR, ribs, unilateral completed [facility] ([facility]) [address] , [place], [address], 11/13/2023 10:06:59 Procedure Notes None recorded. Medical [...] Not Available Not Available Not Avai lable hydrocodo ne 5 mg-acetam inophen 325 mg tablet TAKE 1 TABLET BY MOUTH EVERY 6 HOURS NEEDED FOR PAIN active Not Available Not Available No t Available meloxicam 15 mg tablet TAKE 1 TABLET [...] active Not Available Not Available Not Available ibuprofen 600 mg tablet TAKE 1 TABLET BY MOUTH EVERY 8 HOURS NEEDED FOR PAIN FOR 14 DAYS active Not Available Not Available No t Available metformin ER 500 mg tablet,ex tended release 24 hr TAKE 2 TABLETS TWICE A DAY BY ORAL ROUTE DIRECTED FOR 90 DAYS. active Not Available Not Available No t Available amoxicill in 875 mg-potass ium clavulana te 125 mg tablet TAKE 1 TABLET BY MOUTH TWICE A DAY DIRECTED FOR 10 DAYS 05/15 completed Not Available Not Available Not Available tadalafil 5 mg tablet TAKE 1 TABLET BY MOUTH DAILY FOR LUTS FOR 90 DAYS active Not Available Not Available No t Available tadalafil 20 mg tablet TAKE 1 TABLET BY MOUTH NEEDED FOR SEXUAL ACTIVITY , TAKE 60MINS BEFORE INTENDED ACTIVITY active Not Available Not Available No t Available Fish Oil active Not Available Not [...] /min 97 % 97 % 30 kg/m2 90015.7 7 g 116 mm[Hg] 84 mm[Hg] PHUONG Paul [facility] 3 08:51:13 Date Recorded Body height Body mass index (BMI) Body weight Heart rate Systolic blood pressure Diastolic blood pressure Provider Name and Address Organization Details Last Updated DateTime 3 168.28 cm 30.4 kg/m2 19629.5 5 g 81 /min 114 mm[Hg] 73 mm[Hg] Adrián Worthington [facility] 3 09:28:45 Date Recorded Body height Body mass index (BMI) Body weight Heart rate Oxygen saturation Oxygen saturation in Arterial blood by Pulse oximetry Systolic blood pressure Diastolic blood pressure Provider Name and Address Organization Details Last Updated DateTime 4 168.28 cm 31.8 kg/m2 46618.6 9 g 105 /min 99 % 99 % 150 mm[Hg] 82 mm[Hg] Samantha Galindo [facility] 4 08:15:04 Date Recorded Body height Body mass index (BMI) Body weight Oxygen saturation Oxygen saturation in Arterial blood by Pulse oximetry Heart rate Systolic blood pressure Diastolic blood pressure Systolic blood pressure Diastolic blood pressure Provider Name and Address Organization Details Last Updated DateTime 4 168.28 cm 31.1 kg/m2 34961.9 2 g 100 % 100 % 88 /min 125 mm[Hg] 84 mm[Hg] 133 mm[Hg] 74 mm[Hg] Adrián Worthington Ben [facility] 4 11:24:46 Date Recorded Body height Body mass index (BMI) Body weight Oxygen saturation Oxygen saturation in Arterial blood by Pulse oximetry Heart rate Systolic blood pressure Diastolic blood pressure Provider Name and Address Organization Details Last Updated DateTime 4 168.28 cm 30.1 kg/m2 43110.3 7 g 97 % 97 % 77 /min 104 mm[Hg] 62 mm[Hg] Adrián Worthington [facility] 4 08:26:48 Social History Question Answer Notes LastModified by Organizat ion Details LastModified Time Tobacco Smoking Status Never Smoker checked kb 05-15-24 [facility]24 08:27:56 Do You Wear A Helmet When Biking? Yes [email or web address] Information not available 06/24/2015 What Is Your Level Of Caffeine Consumption? None [email or web address] Information not available 05/13/2020 How Much Tobacco Do You Chew? None Information not available 12/31/2012 What Type Of Diet Are You Following? REGULAR [email or web address] Information not available 06/24/2015 Which Illicit Or Recreational Drugs Have You Used? No Denies IVDU Information not available 01/15/2018 Education 4 Year College 17 Information not available 06/08/2011 How Many Days In The Past Year Have You Had A Heavy Drinking Consumption (4+ Female, 5+ Male)? 0 Information not available 12/31/2012 Are There Any Guns Present In Your Home? No Information not available 06/24/2015 Live Alone Or With Others? With Others 17 Information not available 06/08/2011 Patient Has Health Care Proxy Signed And In Chart Yes etienne Information not available 11/14/2022 Marital Status [email or web address] Informatio n not available 03/01/2012 Mosquito Repellent Used Routinely Yes Information not available 01/15/2018 What Was The Date Of Your Most Recent Tobacco Screening? 05/11/2022 05/11/22 CJ Information not available 05/11/2022 How Many Children Do You Have? 0 17 Information not available 06/08/2011 Seat Belts Used Routinely Yes [email or web address] Information not available 06/24/2015 Smoke Alarm In Home Yes Information not available 06/24/2015 How Much Tobacco Do You Smoke? No 05/11/22 CJ Information not available 05/11/2022 What Types Of Sporting Activities Do You Participate In? No Information not available 01/15/2018 General Stress Level Low [email or web address] Information not available 06/24/2015 Do You Use Sunscreen Routinely? Yes [email or web address] Information not available 06/24/2015 How Many Years Have You Smoked Tobacco? 0 [email or web address] Information not available 10/28/2019 Sex: Male Functional Status Question Answer Note LastModified by Organizat ion Details LastModified Time What is your level of alcohol consumption? Moderate 5 days a week- 4 shot glasses a day Vodka -smirnof. [email or web address] Information not available 05/15/2024 Do you or have you ever used smokeless tobacco? 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 Never used electronic cigarettes 10/28/2019 TG Information not available 10/28/2019 Mental Status None recorded. Family History Relationship [...] Recorded Time Tdap 007 completed Not Available [facility] 06/07/2011 05:21:29 Tdap 007 completed Not Available [facility] 06/07/2011 05:21:29 pneumococcal polysaccharide PPV23 009 completed Not Available [facility] 08/09/2019 02:38:00 Td (adult), 2 Lf tetanus toxoid, preservative free, adsorbed 018 completed Not Available [facility] 08/09/2019 02:22:36 Influenza, split virus, quadrivalent, PF 022 cancelled patient objection Anali Yanez D.O. [address] [place] [address], [phone], [facility] 05/11/2022 11:18:26 Influenza, split virus, quadrivalent, PF 023 cancelled patient objection Nikole Pandya. [address] [place] [address], [phone], [facility] 05/13/2023 15:47:02 COVID-19, mRNA, LNP-S, PF, 30 mcg/0.3 mL dose 021 completed Esther Melendez CMA null, [facility] 06/03/2021 14:14:02 COVID-19, mRNA, LNP-S, PF, 30 mcg/0.3 mL dose 021 completed Esther Melendez CMA null, [facility] 06/03/2021 14:14:12 COVID-19, mRNA, LNP-S, PF, 100 mcg/0.5mL dose or 50 mcg/0.25mL dose 022 completed Corrina Orta MA null, [facility] 08/22/2021 14:21:46 Past Encounters Encounter ID Performer Location Encounter Start Date Encounter Closed Date Diagnosis/Indication Diagnosis SNOMED-CT Code Diagnosis ICD10 Code Diagnosis Note [id number] Raven Escobar MD , [facility] [place] [address] [place] [address] 08/28/2000 11:45:00 08/12/2008 02:02:29 [id number] Montana Foreman III, MD , [facility] [place] [address] [place] [address] 09/07/2006 09:25:16 09/07/2006 13:17:47 [id number] [facility] - [address] [place] [address] 09/27/2006 09:47:41 09/27/2006 09:47:45 [id number] Yung Escobar, OD [facility], [address] [place] [address] 09/27/2006 10:01:46 09/27/2006 11:52:26 [id number] Yung Escobar, OD [facility], [address] [place] [address] 10/15/2006 14:29:42 10/15/2006 17:10:27 [id number] Montana Foreman III, MD , [facility] [address] [place] [address] 10/17/2006 08:03:38 10/17/2006 09:08:25 [id number] Montana Foreman III, MD , [facility] [address] [place] [address] 01/09/2007 12:05:24 01/09/2007 14:30:41 [id number] [facility] - [address] [place] [address] 01/10/2007 07:28:27 01/10/2007 07:28:32 [id number] [facility] - [address] [place] [address] 01/11/2007 08:57:27 01/11/2007 08:57:35 [id number] Montana Foreman III, MD , [facility] [place] [address] [place] [address] 02/01/2007 08:12:35 02/01/2007 10:48:02 [id number] [facility] - [address] [place] [address] 06/11/2007 07:56:03 06/11/2007 07:56:12 [id number] Montana Foreman III, MD , [facility] [address] [place] [address] 1 06/25/2007 09:01:34 08/12/2008 02:02:29 [id number] Jaziel Love DPM Podiatry, [address] [place] [address] 07/09/2007 09:05:27 07/10/2007 09:23:03 [id number] [facility] - [address] [place] [address] 11/19/2007 10:32:30 11/19/2007 10:32:45 [id number] Montana Foreman III, MD , [facility] [place] [address] [place] [id number] 05/12/2009 10:30:12 05/13/2009 08:35:11 [id number] Montana Foreman III, MD , [facility] [address] [place] [address] 06/09/2009 14:41:02 06/10/2009 09:44:59 [id number] Lolis Rincon PA-C Endocrino logy, [address] [place] [address] 06/23/2009 08:26:26 06/24/2009 09:26:23 [id number] Lolis Rincon PA-C Endocrino logy, [facility] [address] [place] [address] 08/19/2009 09:27:35 08/19/2009 14:10:39 [id number] Lolis Rincon PA-C Endocrino logy, [facility] [address] [place] [address] 11/18/2009 09:29:15 11/18/2009 10:41:01 [id number] Montana Foreman III, MD , [facility] OFFICE [address] [place] [address] [place] [address] 09/20/2010 12:01:55 09/20/2010 16:23:51 [id number] Montana Foreman III, MD , [address] [place] [address] 06/21/2011 09:53:16 06/21/2011 10:13:02 [id number] Montana Foreman III, MD , [address] [place] [id number] 01/23/2012 08:10:14 01/23/2012 09:04:59 [id number] Montana Foreman III, MD , [address] [place] [id number] 03/01/2012 08:33:47 03/01/2012 09:08:14 [id number] Montana Foreman III, MD , [address] [place] [id number] 12/31/2012 11:03:27 01/01/2013 07:35:53 [id number] Montana Foreman III, MD , [address] [place] [address] 05/19/2013 09:39:48 05/19/2013 09:56:44 Nonvenomous insect bite of multiple sites 703643120 [id number] Montana Foreman III, MD , [facility] [address] [place] [address] [place] [address] 08/28/2013 15:02:43 08/28/2013 15:25:22 Benign essential hypertension 3240999 continue to work on diet ,exercisea nd lowering salt intake as discussed Mixed hyperlipidemia 597216107 continue to work on diet and exercise as discussed Adult heal th examination 841527553 see Risk Assessment and Lifestyle Change Counseling section above Counseling [id number] Type 2 nora betes mellitus without complication 075069758 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 194684234 Disorder o f nervous system due to type 2 diabetes mellitus 248624222 [id number] MD RENU Delong III, [facility] [place]ICE [address] [place] [address] 02/26/2014 09:23:19 02/26/2014 09:55:23 Benign essential hypertension 5249824 continue to work on diet ,exercisea nd lowering salt intake as discussed Mixed hyperlipidemia 716393133 continue to work on diet and exercise as discussed Disorder o f nervous system due to type 2 diabetes mellitus 160584173 Foot neuropathy Neoplasm of skin 252927802 [id number] Montana Foreman III, MD , [facility]ICE [address] [place] [address] 01/05/2015 10:38:43 01/05/2015 10:57:32 Benign essential hypertension 5018088 continue to work on diet, exercise, and lowering salt intake as discussed Mixed hyperlipidemia 871248499 continue to work on diet and exercise as discussed Cholestero l is at goal Type 2 nora betes mellitus without complication 614270751 Actinic keratosis 040473469 Right shoulder x 2 [id number] PABLO Sommers, [facility] [place]ICE [address] [place] [address] 02/23/2015 09:02:42 02/23/2015 09:28:05 Paronychia of toe 874772599 Diabetes mellitus 43706715 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 385035535 [id number] PABLO Sommers, [facility] [place]ICE [address] [place] [address] 02/25/2015 09:28:28 02/25/2015 10:08:25 Paronychia of toe 383950685 Diabetes mellitus 61390246 Cellulitis of toe 07546100 [id number] PABLO Sommers, [facility]ICE [address] [place] [id number] 02/26/2015 09:13:35 02/26/2015 09:42:40 Cellulitis of toe 70740971 Paronychia of toe 082458727 Diabetes mellitus 37488496 [id number] PABLO Sommers, [facility] [place]ICE [address] [place] [address] 03/01/2015 09:16:53 03/01/2015 09:27:47 Cellulitis of toe 12073745 resolving will finish remaining 3 days of Bactrim DS bid. Again reviewed sxs of infection and will rto if they reoccur. [id number] Aydee Clarke NP , [facility] [place] [address] [place] [address] 06/24/2015 08:26:01 06/24/2015 09:06:08 Type 2 diabetes mellitus without complication 124370341 E11.9 A1C not at goal of <7.0 Up significan tly from December will increase metformin ER to 1000 mg bid will decrease ETOH, sugar drinks repeat labs 3 months- OV Mixed hyperlipidemia 267 827005 E78.2 Trigs are not at goal Will c/w omega fish oil 4000 mg qd will decrease ETOH and sugary drinks Continue to work on diet and exercise as discussed repeat labs 3 months and f/u OV Benign ess ential hypertension 1850825 I10 Blood pressure at goal . continue to work on diet, exercise, and lowering salt intake as discussed Adult heal th examination 229753976 Z00.00 see Risk Assessment and Lifestyle Change Counseling section above HM: Labs UTD Declines flu shot Counseling 160270953 Z71 .9 Alcohol dependence 23730 003 F10.20 discussed reducing ETOH intake discussed impact on blood sugar and triglyceri vi [facility] 25515189 M25.512 ? impingemen t will try 3-5 days of NSAIDs, alternate heat and ice will call if he reconsider PT Neuropathy due to diabetes mellitus 137997618 E11.40 stable discussed importance of checking feet regularly. [id number] Anali SEARS, [facility] [place] [address] [place] [address] 12/01/2015 09:44:27 12/01/2015 10:33:57 Type 2 diabetes mellitus without complication 181211856 E11.9 A1C at goal of <7.0 at 5.0 will c/w increase metformin 1000 mg bid c/w glyburide 2.5 mg qd discussed working on diet, ETOH reduction will repeat in 3 months to check for stability OV 6 months Mixed hyperlipidemia 267 165223 E78.2 Trigs much improved down from 699 to 158! great job Will c/w omega fish oil 4000 mg qd will decrease ETOH and sugary drinks Continue to work on diet and exercise as discussed repeat labs 3 months and f/u OV 6 months Benign ess ential hypertension 8925518 I10 Blood pressure at goal . 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 Adjustment disorder 1722 6007 F43.23 dealing with loss of 32 brother (OD) as well taking care of Mom [id number] Jarocho Browne MD , [facility] [place] [address] [place] [address] 01/25/2016 09:18:19 01/25/2016 10:06:23 Infection of toe 004420249 L08.9 in diabetic with neuropathy i informed him that this was a serious infection for him and that we must be observant augmentin for 12 days.he will rto for non response after 48 hrs, or for progressio n or onset fever Neuropathy due to diabetes mellitus 446758055 E11.40 [id number] Anali Yanez D.O. , [facility] [place] [address] [place] [address] 06/28/2016 09:35:15 06/29/2016 09:39:46 Benign essential hypertension 0813695 I10 BP at goalc/w meds Neuropathy due to diabetes mellitus 485449389 E11.40 abn but stable discussed importance of checking feet regularly. Mixed hyperlipidemia 267 522145 E78.2 Trigs up from 158 to 388will c/w fish oildiscuss ed importance of ETOH reduction Type 2 nora betes mellitus without complication 368168112 E11.9 A1C very good at 5.7will get meter d/t ? of low blood sugarsIf getting lows discussed potentiall y reducing glyburideR F on med today Adult heal th examination 231707339 Z00.00 see Risk Assessment and Lifestyle Change Counseling section aboveHM: declines flu shot Counseling 125594688 Z71 .9 Alcohol dependence 51550 003 F10.20 discussed reducing ETOH intake- has not reduced discussed impact on blood sugar and triglyceri vi lhoping new job (no longer at [employer]) will help reduce [id number] Anali Yanez D.O. , [facility] [place] [address] [place] [address] 10/10/2016 08:00:49 10/12/2016 15:46:30 Injury of ribs 985895981 S29.9XXA Alcohol dependence 07009 003 F10.20 Type 2 nora betes mellitus without complication 934315700 E11.9 [id number] Anali Yanez D.O. , [facility] [place]ICE [address] [place] [address] 01/09/2017 07:57:33 01/10/2017 09:04:13 Benign essential hypertension 5326296 I10 Blood pressure at goal of <140/90c/w lisinopril BMP utd wnl Mixed hyperlipidemia 267 102493 E78.2 LDL at goal of <100c/w simvastati ncontinue to work on diet and exercise as discussed Type 2 nora betes mellitus without complication 440088418 E11.9 A1C 5.0 with Goal <6.5doing well with more activity d/t jobno med changesmay consider reducing if c/w low A1Crto 6 months for PHA Neuropathy due to diabetes mellitus 564340795 E11.40 abn but stable discussed importance of checking feet regularly. Alcohol dependence 62991 003 F10.20 has reduced amount of ETOHonly on weekends and occasional during week Obesity 027594063 E66.9 BMI 30has lost weight- 8 lbs since Junec/ w regular activity [id number] Anali Yanez D.O. 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 , [facility] [place] [address] [place] [address] 01/15/2018 10:28:34 01/15/2018 11:35:54 Type 2 diabetes mellitus without complication 109820196 E11.9 A1C 5.9 with Goal <6.5doing well with more activity d/t jobno med changesmay consider reducing if c/w low A1Crto 6 months for PHA Alcohol dependence 30255 003 F10.20 stable with slight decrease per pt3-4 drinks 5 x week Benign ess ential hypertension 5710940 I10 Blood pressure at goal of <140/90c/w lisinopril BMP utd wnl Neuropathy due to diabetes mellitus 268191950 E11.40 abn but stable discussed importance of checking feet regularly. Mixed hyperlipidemia 267 828572 E78.2 LDL at goal of <100c/w simvastati ncontinue to work on diet and exercise as discussed Active or passive immunization 453554326 Z23 Diabetic foot ulcer 3710 93581 E11.40 R foot 2nd toe with cellulitis will get xrayget bactrim DS bid x [address] Wang for wound care. [id number] Mitesh Cheng DPM Podiatry, [facility] [address] [facility] [place] [address] 01/30/2018 11:02:26 01/30/2018 14:26:05 Acute osteomyelitis of phalanx of toe 440951535 M86.179 Reviewed right foot xray notable for [...] post op day 0. Pain in toe 223524308 M7 9.674 Ulcer of toe 056103452 L 97.049 [id number] Anali SEARS, [facility] [place] [address] [place] [address] 01/30/2018 15:50:18 01/30/2018 18:24:23 Pre-surgery evaluation 058984720 Z01.818 ekg wnlThe patient is a low risk for perioperat berta cardiovasc ular complicati ons, and may proceed with surgery. Acute oste omyelitis of phalanx of toe 000168100 M86.179 R 2nd toe Benign ess ential hypertension 7429954 I10 Blood pressure at goal of <140/90c/w lisinopril BMP utd wnl Alcohol dependence 04694 003 F10.20 stable with slight decrease per pt3-4 drinks 5 x week [id number] Mitesh Cheng DPM Podiatry, [address] [address] 02/12/2018 10:26:41 02/12/2018 11:12:01 Acute osteomyelitis of phalanx of toe 284884940 M86.179 Reviewed right foot xray notable for erosions of distal aspect of distal phalanx s/p partial amputation of toe. Rx for augmentin sent to pharmacy for 10 day course. Dressing changed. Pain in toe 780352194 M7 9.674 will remove sutures in 1 week. [id number] Mitesh Cheng DPM Podiatry, [address] [address] 02/19/2018 08:51:40 02/19/2018 09:26:45 Acute osteomyelitis of phalanx of toe 888982805 M86.179 Reviewed right foot xray notable for erosions of distal aspect of distal phalanx s/p partial amputation of toe. Pain in toe 787867014 M7 9.674 Sutures removed today. Scab overlying incision removed and site bleeding area identified . Area was cleansed then new dressing was applied to the toe. Pt instructed to take abx to completion . Also to keep toe covered with gauze after daily dressing changes until area is healed up. RTC 2 weeks to re-eval. Ok to return to work tomorrow. [id number] Mitesh Cheng DPM Podiatry, [address] [address] 03/05/2018 08:38:01 03/07/2018 14:19:36 Acute osteomyelitis of phalanx of toe 841332121 M86.179 Reviewed right foot xray notable for erosions of distal aspect of distal phalanx s/p partial amputation of toe. Resolved, patient with clean margins. Pain in toe 439721218 M7 9.674 Right 2nd toe wound all healed up now. Pt ok to get toe wet. Counceled on need for diabetic shoes with custom insoles, as he will need wide width and extra depth shoe to accomodate toe deformitie s. RTC 3 months to re-eval. [id number] Mitesh Cheng DPM Podiatry, [address] [address] 05/07/2018 09:13:31 05/07/2018 09:50:36 Pain in toe 118246432 M79.674 Counseled on need for diabetic shoes with custom insoles, as he will need wide width and extra depth shoe to accomodate toe deformitie s. Orthotics agreement form was completed and signed today. Pt given a copy. We will check with her insurance about coverage. Patient is aware of cost. Cellulitis of toe 464243 04 L03.031 Ulcer of toe 662626064 L 97.509 Verbal consent was obtained. Right [...] in counseling and coordinati on of care. [id number] Mitesh Cheng DPM Podiatry, [address] [address] 05/21/2018 08:45:10 05/21/2018 16:20:21 Pain in toe 636240057 M79.674 Counseled on need for diabetic shoes [...] then sent to [facility] for fabricljo n. Specificat ions: full length, 45 jeff, flexible, cute wide, toe filler for right 2nd toe amputation .I spent 15 mins face to face with patient, more 50% spent in counseling and coordinati on of care. Cellulitis of toe 213734 04 L03.031 resolved Ulcer of toe 679499484 L 97.509 Verbal consent was obtained. Right [...] in counseling and coordinati on of care. [id number] Mitesh Cheng DPM Podiatry, [address] [address] 07/09/2018 09:09:03 07/10/2018 08:20:30 Pain in toe 949212673 M79.674 Pt was informed that breaking into fulltime wear of custom made functional foot orthotic devices should occur over a period of 10 to 14 days. On the day of cloth picker the orthotic devices, wear them for [...] coordinati on of care. Cellulitis of toe 729901 04 L03.031 resolved Ulcer of toe 229710782 L 97.509 Verbal consent was obtained. Right 4th toe prepped and sterile instrument ation used to unroof blister draining serous drainage. Wound was dressed wtih betadine and dsd. Pt was given instructio ns to dress it accordingl y each day. Rx for abx sent to pharmacy. RTC 2 weeks. Not to get foot wet. [id number] Anali SEARS, [facility] OFFICE [address] [place] [address] 09/06/2018 14:25:20 09/06/2018 15:02:23 Adult health examination 158191882 Z00.00 see Risk Assessment and Lifestyle Change Counseling section aboveHM: labs utdcolonos copy due Counseling 273882754 Z71 .9 Depression screening 171 530522 Z13.89 1 out of 27depressi on screening tool administer ed, entered into emr, scored and discussed, time greater than 7.5 minutes Mixed hyperlipidemia 267 875940 E78.2 LDL at goal of <100c/w simvastati ncontinue to work on diet and exercise as discussed Benign ess ential hypertension 9920901 I10 BP at goal c/w lisinopril continue to work on diet, exercise, and lowering salt intake as discussed Type 2 nora betes mellitus without complication 244107305 E11.9 A1C 5.7 with Goal <6.5still high fasting bs at 157advised to reduce ETOH particular ly shots doing well with more activity d/t jobno med changesmay consider reducing if c/w low A1Crto 6 months for PHA Alcohol dependence 72964 003 F10.20 3-4 everyday after workis doing shotsadvis ed to reduce- pt agrees Neuropathy due to diabetes mellitus 656569254 E11.40 abn but stable discussed importance of checking feet regularly. Screening for malignant neoplasm of colon 808129162 Z12.11 Referral for a DIRECT booked colonoscop y. This patient is a healthy ASA Class 1 or 2 patient (only mild systemic disease), or a STABLE, well controlled insulin dependent diabetic. They do not have serious cardiac disease ie ID/angiopl asty within 1 year, symptomati c CHF; renal failure with CKD 4 or 5; take Coumadin, Plavix, Aggrenox, etc. Amputated toe 640795258 Z89.429 R 2nd toecheck feet daily [id number] Anali Yanez D.O. , [facility] OFFICE [address] [place], [place] [address] 03/10/2019 15:51:01 03/10/2019 16:23:56 Mixed hyperlipidemia 594961319 E78.2 LDL at goal of <100c/w simvastati ncontinue to work on diet and exercise as discussed Screening for malignant neoplasm of colon 673642648 Z12.11 Referral for a DIRECT booked colonoscop y. This patient is a healthy ASA Class 1 or 2 patient (only mild systemic disease), or a STABLE, well controlled insulin dependent diabetic. They do not have serious cardiac disease ie ID/angiopl asty within 1 year, symptomati c CHF; renal failure with CKD 4 or 5; take Coumadin, Plavix, Aggrenox, etc. Neuropathy due to diabetes mellitus 555087849 E11.40 abn but stable discussed importance of checking feet regularly. no open toe shoesneed to protect feet Amputated toe 316000586 Z89.429 R 2nd toecheck feet daily Benign ess ential hypertension 3266096 I10 BP at goal c/w lisinopril continue to work on diet, exercise, and lowering salt intake as discussed Disorder o f nervous system due to type 2 diabetes mellitus 145343914 E11.49 DM is qonjigj2l 5.8 which is great- at goaldiscus sed importance of foot carealread y had 1 amputation injury to L great toe- no open toe shoes Obesity 530299513 E66.9 BMI 30.5c/w low fat, low carb diet c/w regular activity Injury of toe 325181501 S99.922A likely paronychia of L great toeInterdi git is red, swollen with some warmthno painhx of osteomyeli tis with amputation xray todaystart keflex 500 mg tid x 7 days. Cramp in l ower limb associated with sleep 8682775330 56134 G47.62 advised increasing potassium with banana, sweet potatoeske ep hydrated with electrolyt estry diet tonic prior to bed [id number] Nikole Pandya . MD [facility], [facility] [facility], [place] [address] [place] [address] 10/28/2019 08:30:56 10/28/2019 15:14:19 Low back pain 499189544 M54.5 Low back strain, no alarming symptoms. Will treat with ice, muscle relaxers and NSAIDs. Do not take ibuprofen with meloxicam. Call us with any new neurologic symptoms. 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 [id number] Anali Ellis.OXu SEARS, [facility], [place]ICE [address] [place] [address] 05/13/2020 10:57:05 05/14/2020 11:47:45 Adult health examination 862448729 Z00.00 see Risk Assessment and Lifestyle Change Counseling section aboveHM: labs utdcolonos copy due Counseling 966706560 Z71 .9 including cardiovasc ular risk reduction counseling Depression screening 171 506959 Z13.89 0 out of 27 phq 9mood is gooddepres dorys screening tool administer ed, entered into emr, scored and discussed, time greater than 7.5 minutes Screening for alcohol abuse 847057025 Z13.39 + auditwill work on decreasein g Amputated toe 257011685 Z89.429 R 2nd toecheck feet daily Type 2 nora betes mellitus without complication 306277704 E11.9 A1C 6.3 up from 5.8 but at Goal <6.5advise d to reduce ETOH particular ly shots doing well with more activity d/t jobno med changesrto 6 months for MM Alcohol dependence 01015 003 F10.20 Audit 43-4 everyday after work - drinking more with covid and less to do at nightis doing shotsadvis ed to reduce- pt agrees Mixed hyperlipidemia 267 935686 E78.2 Cholestero l is at goal LDL is 46Trigs are high at 281- will work on diet and less etoh Continue to work on diet and exercise as discussed Essential hypertension 42258560 I10 cannot check bpwill have him come in for bp checkif not at goal of < 130/80 will increase lisinopril to 20 mg [id number] Analiben Yanez D.O. [facility], OFFICE [address] [place] [address] 05/27/2020 09:04:01 05/28/2020 15:26:35 [id number] Anali Yanez D.O. [facility], OFFICE [address] [place] [address] 10/28/2020 07:51:21 11/19/2020 16:22:56 Essential hypertension 64280492 I10 cannot check bpwill have him come in for bp checkif not at goal of < 130/80 will increase lisinopril to 20 mg Adult heal th examination 309643085 Z00.00 see Risk Assessment and Lifestyle Change Counseling section above HM: labs utd colonoscop y due Counseling 982359920 Z71 .9 including cardiovasc ular risk reduction counseling Screening for alcohol abuse 075463481 Z13.39 + auditwill work on decreasein g Mixed hyperlipidemia 267 759299 E78.2 Cholestero l is at goal LDL is 50 Trigs are high at 472- will work on diet and less etoh Continue to work on diet and exercise as discussed Amputated toe 475229331 Z89.429 R 2nd toecheck feet daily Type 2 nora betes mellitus without complication 201909633 E11.9 A1C 6.1 at Goal <6.5 advised to reduce ETOH doing well with more activity d/t job no med changes rto 6 months for MM Alcohol dependence 07896 003 F10.20 Audit 7 more with pandemic 3-4 everyday after work - drinking more with covid and less to do at night is doing shots advised to reduce- pt agrees Neuropathy due to diabetes mellitus 409535017 E11.40 abn but stable discussed importance of checking feet regularly. no open toe shoesneed to protect feet [id number] Anali Yanez D.O. [facility], OFFICE [address] [place] [address] 11/18/2020 08:16:03 11/19/2020 16:14:08 [id number] Mynor Saab MD [facility], [facility] [address] [facility] [place] [address] 11/26/2020 06:44:42 11/26/2020 12:47:20 [id number] Anali Yanez D.O. , [facility], OFFICE [address] [place] [address] 06/03/2021 14:03:53 06/03/2021 14:47:31 Low back pain 216417365 M54.50 acute low back pain x 4 hoursNo Red FlagsCan use heat/ice to see if its helpfulMot rin for pain as neededTria l muscle relaxants for spasmsAdvi sed if no improvemen t over the next couple of weeks to f/u for PT referral Benign ess ential hypertension 2326467 I10 BP at goalBP goal < 130/80labs up to date [id number] Jarocho Browne MD , [facility], OFFICE [address] [place] [address] 06/13/2021 08:59:47 06/13/2021 09:45:05 Rib pain 645185495 R07.81 fall to a raised corner of a deck yesterdayn ow with positional muscular pain Left Ant chest wall and axilla. wincingly tender vxhs7dh rib mid axillary line although no ecchymosis or wound is visibleL CTA he has experience d rib injuries before, so understand s duration of activity limiting pain with leftarm and truncal movementsr ec ibuprofen' image fo rproignost ics [id number] Anali Yanez D.OXu , [facility], OFFICE [address] [place] [address] 11/03/2021 08:30:54 11/03/2021 09:02:37 Adult health examination 881663700 Z00.00 see Risk Assessment and Lifestyle Change Counseling section above HM: labs utd colonoscop y 11/26/2020 W/ 5 YR REPEATEYE EXAM 10/23/2020- WILL SCHEDULE Counseling 572085544 Z71 .9 including cardioascu lar risk reduction counseling Depression screening 171 482546 Z13.31 neg phq 9depressio n screening tool administer ed, entered into emr, scored and discussed, time greater than 7.5 minutes Screening for alcohol abuse 161287909 Z13.39 + auditwill work on decreasein g Amputated toe 848160724 Z89.429 R 2nd toecheck feet daily Alcohol dependence 74356 003 F10.20 Audit 7 more with pandemic and loss of dog 3-4 2x week and then on weekends advised to reduce- pt agrees Essential hypertension 26828237 I10 Bp not at goal of < 130/80 but just aboveno med changes Neuropathy due to diabetes mellitus 585724033 E11.40 A1C 6,4- sugars stablec/w metformin 1500 mg qdabn but stable discussed importance of checking feet regularly. no open toe shoesneed to protect feet Mixed hyperlipidemia 267 922463 E78.2 Cholestero l is at goal LDL is 45 Trigs are better 222 Continue to work on diet and exercise as discussed Obesity 524553135 E66.9 BMI 30.6keep low fat, low carb dietc/w regular activity [id number] Anali SEARS, [facility], OFFICE [address] [place] [address] 05/11/2022 09:14:18 05/11/2022 09:53:17 Essential hypertension 18538342 I10 Bp at goal of < 130/80no med changesf/u 3 mos Mixed hyperlipidemia 267 809835 E78.2 Cholestero l is at goal LDL is 45 Trigs 371- will work on better diet Continue to work on diet and exercise as discussed Amputated toe 932196164 Z89.429 R 2nd toecheck feet daily Obesity 223112134 E66.9 BMI 30.6keep low fat, low carb dietc/w regular activity Alcohol dependence 65073 003 F10.20 more with pandemic and loss of dog but had returned to baseline 3-4 2x week Neuropathy due to diabetes mellitus 973114993 E11.40 A1C 6.6 - slight increase from previous but overall sugars stablec/w metformin 1500 mg qdabn but stable discussed importance of checking feet regularly. 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 Genesis Coats [id number] Anali Yanez D.O. , [facility], [place]ICE [address] [place] [address] 11/10/2022 08:27:54 11/10/2022 09:18:34 Adult health examination 602931545 Z00.00 see Risk Assessment and Lifestyle Change Counseling section above HM: labs utd colonoscop y 11/26/2020 W/ 5 YR REPEATEYE EXAM 10/23/2020- WILL SCHEDULE Depression screening 171 126899 Z13.31 depression screening tool administer edneg phq 9 Screening for alcohol abuse 860127550 Z13.39 Alcohol use screening tool administer edaudit 55 days a week- more on weekends. 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 no open toe shoesneed to protect feet Primary er ectile dysfunction 528553689 N52.9 Disorder o f nervous system due to type 2 diabetes mellitus 355027336 E11.49 A1C 6.4 -c/w metformin 1500 mg qdfully abn foot exam but stable discussed importance of checking feet regularly. 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 180714937 E11.3299 mild OUutd on exam 04/2023fol lowed by Thaddeusrdamon l get exam notes Type 2 nora betes mellitus without complication 206871235 E11.9 A1C 6.5 at Goal <6.5 advised to reduce ETOH doing well with more activity d/t job no med changes rto 6 months for MM Obesity 101382854 E66.9 BMI 30.4keep low fat, low carb dietc/w regular activity Alcohol dependence 75691 003 F10.20 continues with etoh 3-4 days week more on weekends d iscussed impact on EDencourag ed reduction Benign ess ential hypertension 4062138 I10 BP at goal c/w lisinopril continue to work on diet, exercise, and lowering salt intake as discussed Neuropathy due to diabetes mellitus 487528282 E11.40 A1C 6.5c/w metformin 2000 mg qdfully abn foot exam but stable discussed importance of checking feet regularly. no open toe shoesneed to protect feet Mixed hyperlipidemia 267 901550 E78.2 Cholestero l is at goal at 30c/w statinCont inue to work on diet and exercise as discussed Adult heal th examination 145769073 Z00.00 see Risk Assessment and Lifestyle Change Counseling section above HM: labs utd colonoscop y 11/26/2020 W/ 5 YR REPEATEYE EXAM 04/2023- WILL SCHEDULE declines psa Depression screening 171 354873 Z13.31 depression screening tool administer edneg phq 9mood is good Screening for alcohol abuse 115948868 Z13.39 Alcohol use screening tool administer edaudit 8etoh dependence discussed impact on sugars, kidney/braden er fx- understand s Screening for malignant neoplasm of prostate 296851348 Z12.5 If you have a prostate, the [...] expectancy .declines testing this year Rib pain 815202622 R07.8 1 injury 2 weeks agorf of ibuprofen Disorder o f nervous system due to type 2 diabetes mellitus 702578125 E11.49 A1C 6.5c/w metformin 1500 mg qdfully abn foot exam but stable discussed importance of checking feet regularly. 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 715947168 E11.3299 mild OUutd on exam 06/2023fol lowed by [facility] Type 2 nora betes mellitus without complication 542586424 E11.9 A1C 6.9 at Goal <7.0 advised to reduce ETOH doing well with more activity d/t job no med changes rto 6 months for MM Obesity 165252077 E66.9 BMI 30.4keep low fat, low carb dietc/w regular activity Alcohol dependence 25840 003 F10.20 etoh 4-5 x week few drinkswork ing on reducing weekday drinkingun derstands impact on blood sugar, liver Benign ess ential hypertension 1514197 I10 BP at goal c/w lisinopril continue to work on diet, exercise, and lowering salt intake as discussed Neuropathy due to diabetes mellitus 726159959 E11.40 A1C 6.9 up from 6.5is going to focus on diet, less weekday etohc/w metformin 2000 mg qdfully abn foot exam but stable discussed importance of checking feet regularly. no open toe shoesneed to protect feet Mixed hyperlipidemia 267 106827 E78.2 Cholestero l is at goal at 30c/w statinCont inue to work on diet and exercise as discussed Influenza vaccination declined 362746991 Z28.21 Health Concerns Section Related Observation LastModified by Organization Detai ls LastModified Time None Recorded Concern Status LastModified by Organization Details LastModified Time None Recorded Advance Directives Directive None Recorded Payers Encounter Date Sequence Insurance Name Policy Number Policy Padron Covered Member ID Padron Member ID Guarantor Name 11/10/2022 1 [place] Timo Lathamno [id number] Timo Riverasano 05/10/2023 1 [place] Timo Lathamno [id number] Timo Riverasano 11/02/2023 1 [place] Timo Riverasano [id number] Timo Riverasano 11/13/2023 1 [place] Timo Lathamno [id number] Timo Riverasano 05/15/2024 1 [place] Timo Lathamno [id number] Timo Meng Notes Date Note Type Note [...] decline in exercise capacity Aydee Clarke NP [address] [place] [address], [phone] 11/10/2022 09:20:06 3 [...] in exercise capacity saw dentist concern re: [id number] up from 6.4- has beenetoh 3-4 days a week - few after work Nikole Pandya. [address] [place], [phone], [facility] 05/13/2023 15:47:09 4 [...] better than the ice. Junie Parekh MD [address] [place] [address], [phone], [facility] 11/02/2023 09:54:13 4 [...] identified barriers to care Context:Diabetes;Peripheral vascular disease (61342) Associated Symptoms:no muscle pain; no dyspnea; no [...] decline in exercise capacity Aydee Clarke NP [address] [place] [address], [phone], [facility] 11/13/2023 13:01:29 4 [...] identified barriers to care Context:Diabetes;Peripheral vascular disease (69011) Associated Symptoms:no muscle pain; no dyspnea; no [...] keeping it to weekends Aydee Clarke NP [address] [place] [address], [phone], [facility] 05/15/2024 08:59:35
--- OUTSIDE RECORDS SUMMARY | 2024-12-04 09:00 | XMS_ITS | Encounter Summary ---
Author Organization [facility] Address [address] [address] Phone Care Team Providers Care Computer Project Manager Name Role Phone Anali Yanez DO Primary Care Provider [phone] Orin Joshi NP Primary Care Provider [phone] Encounter Details Date Type Department Care Team (Late st Contact Info) Description 02/04/2018 Procedure Pass OR Admitting Dept - Virtual Department [address] [place] [address] Social History Tobacco Use Types Packs/Day Years [...] on filedocumented in this encounter Care Teams Computer Project Manager Relationship Specialty Start Date End Date Anali Yanez DO [address] [place] [address] PCP - General Internal Medicine 01/31/18 11/25/20 Orin Joshi NP [address] [place] [address] PCP - General 11/26/20 documented as of this encounter Additional Source Comments The information contained in this document represents components of the legal health record. It is not the complete legal health record.[facility]
--- OUTSIDE RECORDS SUMMARY | 2024-12-04 09:00 | XMS_ITS | Encounter Summary ---
Author Organization [facility] Address [address] [employer] [facility] [address] [place] [address] Phone Care Team Providers Care Vein Access Technician Name Role Phone JobAnali bennett Blaze MENA Primary Care Provider [phone] Orin Joshi NP Primary Care Provider [phone] Encounter Details Date Type Department Care Team (Latest Contact Info) Description 11/23/2020 Transcribe Orders Virtual Department [address] [place] [address] Mynor Saab MD [address] [place] [address] [email or web address] Order (11/23/2020 1:55 PM EDT) COVID-19 Comment [id number] [facility] COVID Testing Status Sent to [facility] 11/23/2020 1:55 PM EDT 11/23/2020 4:51 PM EDT us Mynor Saab MD BODY FLUIDS AND STOOLS ORDERABLE S Edited Result - Final [facility] [address] [place] [address] documented in this encounter Visit Diagnoses Diagnosis Pre-procedure lab exam- Primary Pre-procedural laboratory examination documented in this encounter Care Teams Vein Access Technician Relationship Specialty Start Date End Date Anali Yanez DO [address] [place] [address] PCP - General Internal Medicine 01/31/18 11/25/20 Orin Joshi NP [address] [place] [address] PCP - General 11/26/20 documented as of this encounter Additional Source Comments The information contained in this document represents components of the legal health record. It is not the complete legal health record.[facility]
--- OUTSIDE RECORDS SUMMARY | 2024-12-04 09:00 | XMS_ITS | Data Portability ---
Author Organization [facility], , [facility], OFFICE Address [address] [place] [address] [place] [address] Care Team Providers Care Antique Refinisher Name Role Phone AYDEE CLARKE Primary Care Provider [phone] [facility] Safety Admin Assistant [facility] Automobile Contract Clerk [phone] [facility] Urologist [phone] Assessment Encounter Date Assessment Date Assessment LastModified [...] Details Appointments LAB Follow-Up 2024 07:30A M [facility] Lab Not available Not available Not available Wellness Visit 30 2024 09:15A Elmer Clarke, PABLO Not available Not available Not available Lab HbA1c (hemoglob in A1c), blood 2022 024 [facility], [address] [facility], [place], [address], 08/09/2023 10:57:33 Referral gastroent erologist referral - per dentist as significa nt erosion of enamel 2022 023 [facility], [address] [place], [address], 09/28/2023 12:31:18 Procedures None recorded. Surgeries None recorded. Imaging XR, ribs, unilatera l - eval for fractured ribs, s/p fall on stone wall on L side 2023 024 [facility] (Imaging), [address] , [place], [address], 11/02/2023 10:18:03 Medication Orders simvastat in 20 mg tablet 2023 024 [facility]acy #[id number], [address] [place] [address], [address], 05/15/2024 08:59:23 metformin ER 500 mg tablet,ex tended release 24 hr 2023 024 [facility]acy #0818, [address] [place] [address], [address], 05/15/2024 08:59:23 lisinopri l 10 mg tablet 2023 024 [facility]Pharmacy #0818, [address] [place], [address], 05/15/2024 08:59:22 ibuprofen 800 mg tablet 2023 024 [facility], [address] [place], [address], 11/13/2023 10:26:24 lisinopri l 10 mg tablet 2023 024 [facility]/Pharmacy #0818, [address] [place], [address], 11/13/2023 10:26:18 ibuprofen 800 mg tablet 2023 024 [facility]/Pharmacy #0818, [address] [place], [address], 11/02/2023 08:27:07 sildenafi l 50 mg tablet 2022 023 [facility], [address] [place], [address], 11/13/2023 09:54:42 Patient TargetsNo targets recorded. Patient Instructions Encounter Date Encounter Id Patient Instructions Last Modified By Organization Details Last Modified Time 11/10/2022 [id number] high cholesterol lifestyle changes pkeough Not available 11/10/2022 09:18:51 Well Visit 50 to 65: Care Instructions pkeough Not available 11/10/2022 09:18:50 11/13/2023 [id number] high blood pressure: care instructions pkeough Not available 11/13/2023 10:26:16 learning about high blood pressure pkeough Not available 11/13/2023 10:26:16 05/15/2024 [id number] high blood pressure: care instructions pkeough Not available 05/15/2024 08:59:20 learning about high blood pressure pkeough Not available 05/15/2024 08:59:20 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 3 Not Available [address], [address], 11/02/2022 15:34:56 11/03/19 23 11/02/2022 BASIC METAB OLIC PANEL B/C 17.0 ratio Not Available [address], [address], 11/02/2022 15:34:56 11/03/19 23 11/02/2022 BASIC METAB [...] be used in pregn babak. Not Available [address], [address], 11/02/2022 15:34:56 11/03/19 23 11/02/2022 BASIC METAB OLIC PANEL sodium 138 mmol/ L 136-14 5 Not Available [address], [address], 11/02/2022 15:34:56 11/03/19 23 11/02/2022 BASIC METAB OLIC PANEL potassium 4.3 mmol/ L 3.5-5. 1 Not Available [address], [address], 11/02/2022 15:34:56 11/03/19 23 11/02/2022 BASIC METAB OLIC PANEL chloride 102 mmol/ L 96-107 Not Available [address], [address], 11/02/2022 15:34:56 11/03/19 23 11/02/2022 BASIC METAB OLIC PANEL anion gap 9.2 5.0-15 .0 Not Available [address], [address], 11/02/2022 15:34:56 11/03/19 23 11/02/2022 BASIC METAB OLIC PANEL CO2 27 mmol/ L 21-32 Not Available [address], [address], 11/02/2022 15:34:56 11/03/19 23 11/02/2022 BASIC METAB OLIC PANEL calcium 8.9 mg/dL 8.5-10 .3 Not Available [address], [address], 11/02/2022 15:34:56 11/03/1911/02/2022 LIPID PANEL cholesterol 143 mg/dL <200 mg/dl Sudhir able 200-2 39 mg/dl Borde rline High >240 mg/dl High Not Available [address], [address], 11/02/2022 15:34:57 11/03/19 23 11/02/2022 LIPID PANEL triglyceride s 317 mg/dL high <150 mg/dL Viki l 150-1 99 mg/dL Borde rline High 200-4 99 mg/dL High >500 mg/dL Very High Not Available [address], [address], 11/02/2022 15:34:57 11/03/19 23 11/02/2022 LIPID PANEL direct HDL 38 mg/dL <40 mg/dl - Major Risk for CHD >60 mg/dl - Negat berta Risk for CHD Not Available [address], [address], 11/02/2022 15:34:57 11/03/1911/02/2022 DIREC T LDL direct [...] r is not necmeaghan maisha. Not Available [address], [address], 11/02/2022 16:48:05 05/03/2005/03/2023 HGB A1C hemoglobin A1C [...] furth er confi rmati on Not Available [address], [address], 05/03/2023 12:05:19 05/03/2005/03/2023 HGB A1C estimated average glucose 157.1 mg/dL Not Available [address], [address], 05/03/2023 12:05:19 05/03/2005/03/2023 BASIC METAB OLIC PANEL glucose 173 mg/dL 70-100 high Not Available [address], [address], 05/03/2023 12:12:20 05/03/2005/03/2023 BASIC METAB OLIC PANEL BUN 17 mg/dL 7-18 Not Available [address], [address], 05/03/2023 12:12:20 05/03/2005/03/2023 BASIC METAB OLIC PANEL creatinine 1.0 mg/dL 0.8-1. 3 Not Available [address], [address], 05/03/2023 12:12:20 05/03/2005/03/2023 BASIC METAB OLIC PANEL B/C 17.0 ratio Not Available [address], [address], 05/03/2023 12:12:05/03/2005/03/2023 BASIC METAB OLIC PANEL GFR [...] be used in pregn babak. Not Available [address], [address], 05/03/2023 12:12:20 05/03/2005/03/2023 BASIC METAB OLIC PANEL sodium 138 mmol/ L 136-14 5 Not Available [address], [address], 05/03/2023 12:12:20 05/03/2005/03/2023 BASIC METAB OLIC PANEL potassium 4.2 mmol/ L 3.5-5. 1 Not Available [address], [address], 05/03/2023 12:12:20 05/03/2005/03/2023 BASIC METAB OLIC PANEL chloride 102 mmol/ L 96-107 Not Available [address], [address], 05/03/2023 12:12:20 05/03/2005/03/2023 BASIC METAB OLIC PANEL anion gap 11.9 5.0-15 .0 Not Available [address], [address], 05/03/2023 12:12:20 05/03/2005/03/2023 BASIC METAB OLIC PANEL CO2 24 mmol/ L 21-32 Not Available [address], [address], 05/03/2023 12:12:20 05/03/20 23 05/03/2023 BASIC METAB OLIC PANEL calcium 9.0 mg/dL 8.5-10 .3 Not Available [address], [address], 05/03/2023 12:12:20 05/03/2005/03/2023 LIPID PANEL cholesterol 148 mg/dL <200 mg/dl Sudhir able 200-2 39 mg/dl Borde rline High >240 mg/dl High Not Available [address], [address], 05/03/2023 12:12:21 05/03/2005/03/2023 LIPID PANEL triglyceride s 323 mg/dL high <150 mg/dL Viki l 150-1 99 mg/dL Borde rline High 200-4 99 mg/dL High >500 mg/dL Very High Not Available [address], [address], 05/03/2023 12:12:21 05/03/20 23 05/03/2023 LIPID PANEL direct HDL 42 mg/dL <40 mg/dl - Major Risk for CHD >60 mg/dl - Negat berta Risk for CHD Not Available [address], [address], 05/03/2023 12:12:21 05/03/20 23 05/03/2023 DIREC T [...] r is not jose ferrera. Not Available [address], [address], 05/03/2023 14:38:05 05/03/20 23 05/03/2023 MICRO ALBUM IN/CR EATIN INE RATIO PANEL , URINE microalbumin 8.0 mg/L 1.3-20 .0 Not Available [address], [address], 05/03/2023 15:48:25 05/03/20 23 05/03/2023 MICRO ALBUM IN/CR EATIN INE RATIO PANEL , URINE creatinine urine 139.3 mg/dL 30.0-1 25.0 high Not Available [address], [address], 05/03/2023 15:48:25 05/03/20 23 05/03/2023 MICRO ALBUM IN/CR EATIN INE RATIO PANEL , URINE microalb/cre at ratio 5.7 mg/g_ creat 0.0-29 .0 Not Available [address], [address], 05/03/2023 15:48:25 08/09/19 24 08/09/2023 BASIC METAB OLIC PANEL glucose 168 mg/dL 70-100 high Not Available [address], [address], 08/09/2023 10:55:05 08/09/19 24 08/09/2023 BASIC METAB OLIC PANEL BUN 17 mg/dL 7-18 Not Available [address], [address], 08/09/2023 10:55:05 08/09/19 24 08/09/2023 BASIC METAB OLIC PANEL creatinine 1.1 mg/dL 0.8-1. 3 Not Available [address], [address], 08/09/2023 10:55:05 08/09/19 24 08/09/2023 BASIC METAB OLIC PANEL B/C 15.5 ratio Not Available [address], [address], 08/09/2023 10:55:05 08/09/19 24 08/09/2023 BASIC METAB [...] be used in pregn babak. Not Available [address], [address], 08/09/2023 10:55:05 08/09/19 24 08/09/2023 BASIC METAB OLIC PANEL sodium 139 mmol/ L 136-14 5 Not Available [address], [address], 08/09/2023 10:55:05 08/09/19 24 08/09/2023 BASIC METAB OLIC PANEL potassium 4.3 mmol/ L 3.5-5. 1 Not Available [address], [address], 08/09/2023 10:55:05 08/09/19 24 08/09/2023 BASIC METAB OLIC PANEL chloride 102 mmol/ L 96-107 Not Available [address], [address], 08/09/2023 10:55:05 08/09/19 24 08/09/2023 BASIC METAB OLIC PANEL anion gap 10.8 5.0-15 .0 Not Available [address], [address], 08/09/2023 10:55:05 08/09/19 24 08/09/2023 BASIC METAB OLIC PANEL CO2 26 mmol/ L 21-32 Not Available [address], [address], 08/09/2023 10:55:05 08/09/19 24 08/09/2023 BASIC METAB OLIC PANEL calcium 8.9 mg/dL 8.5-10 .3 Not Available [address], [address], 08/09/2023 10:55:05 08/09/19 24 08/09/2023 HGB A1C [...] furth er confi rmati on Not Available [address], [address], 08/09/2023 10:57:32 08/09/19 24 08/09/2023 HGB A1C estimated average glucose 157.1 mg/dL Not Available [address], [address], 08/09/2023 10:57:32 10/25/19 24 10/25/2023 HGB A1C [...] furth er confi rmati on Not Available [address], [address], 10/25/2023 11:15:39 10/25/19 24 10/25/2023 HGB A1C estimated average glucose 139.9 mg/dL Not Available [address], [address], 10/25/2023 11:15:39 10/25/19 24 10/25/2023 BASIC METAB OLIC PANEL glucose 149 mg/dL 70-100 high Not Available [address], [address], 10/25/2023 16:27:42 10/25/19 24 10/25/2023 BASIC METAB OLIC PANEL BUN 21 mg/dL 7-18 high Not Available [address], [address], 10/25/2023 16:27:42 10/25/19 24 10/25/2023 BASIC METAB OLIC PANEL creatinine 1.0 mg/dL 0.8-1. 3 Not Available [address], [address], 10/25/2023 16:27:42 10/25/19 24 10/25/2023 BASIC METAB OLIC PANEL B/C 21.0 ratio Not Available [address], [address], 10/25/2023 16:27:42 10/25/19 24 10/25/2023 BASIC METAB [...] be used in pregn babak. Not Available [address], [address], 10/25/2023 16:27:42 10/25/19 24 10/25/2023 BASIC METAB OLIC PANEL sodium 139 mmol/ L 136-14 5 Not Available [address], [address], 10/25/2023 16:27:42 10/25/19 24 10/25/2023 BASIC METAB OLIC PANEL potassium 4.4 mmol/ L 3.5-5. 1 Not Available [address], [address], 10/25/2023 16:27:42 10/25/19 24 10/25/2023 BASIC METAB OLIC PANEL chloride 101 mmol/ L 96-107 Not Available [address], [address], 10/25/2023 16:27:42 10/25/19 24 10/25/2023 BASIC METAB OLIC PANEL anion gap 12.9 5.0-15 .0 Not Available [address], [address], 10/25/2023 16:27:42 10/25/19 24 10/25/2023 BASIC METAB OLIC PANEL CO2 25 mmol/ L 21-32 Not Available [address], [address], 10/25/2023 16:27:42 10/25/19 24 10/25/2023 BASIC METAB OLIC PANEL calcium 9.1 mg/dL 8.5-10 .3 Not Available [address], [address], 10/25/2023 16:27:42 10/25/19 24 10/25/2023 LIPID PANEL cholesterol 113 mg/dL <200 mg/dl Sudhir able 200-2 39 mg/dl Borde rline High >240 mg/dl High Not Available [address], [address], 10/25/2023 16:27:43 10/25/19 24 10/25/2023 LIPID PANEL triglyceride s 205 mg/dL <150 mg/dL Viki l 150-1 99 mg/dL Borde rline High 200-4 99 mg/dL High >500 mg/dL Very High Not Available [address], [address], 10/25/2023 16:27:43 10/25/19 24 10/25/2023 LIPID PANEL direct HDL 42 mg/dL <40 mg/dl - Major Risk for CHD >60 mg/dl - Negat berta Risk for CHD Not Available [address], [address], 10/25/2023 16:27:43 10/25/19 24 10/25/2023 LDL - [...] r is not terrimeaghan maisha. Not Available [address], [address], 10/25/2023 16:27:44 10/25/19 24 10/26/2023 IMMUN OGLOB ULIN A immunoglobul in A 125 mg/dL 47-310 normal Not Available [email or web address] [address], [address], 10/26/2023 16:02:40 10/25/19 24 10/26/2023 TISSU E TRANS GLUTA SANDRINE E AB, IGA tissue transglutami nase Ab, IgA <1.0 U/mL normal Value Inter preta tion ----- ----- ----- ---- <15.0 Antib tobias not detec audelia > or = 15.0 Antib tobias detec audelia Not Available [email or web address] [address], [address], 10/26/2023 16:02:41 01/02/20 24 01/02/2024 POC GLU POC glu 179 70 - 100 high Not Available [facility] [address] [place] [address], [address], 01/04/2024 09:10:15 05/08/20 24 05/08/2024 HGB A1C [...] furth er confi rmati on Not Available [address], [address], 05/08/2024 11:51:31 05/08/20 24 05/08/2024 HGB A1C estimated average glucose 151.3 mg/dL Not Available [address], [address], 05/08/2024 11:51:31 05/08/20 24 05/08/2024 MICRO ALBUM IN/CR EATIN INE RATIO PANEL , URINE microalbumin 21.0 mg/L 1.3-20 .0 high Not Available [address], [address], 05/08/2024 14:38:50 05/08/2005/08/2024 MICRO ALBUM IN/CR EATIN INE RATIO PANEL , URINE creatinine urine 121.7 mg/dL 30.0-1 25.0 Not Available [address], [address], 05/08/2024 14:38:50 05/08/20 24 05/08/2024 MICRO ALBUM IN/CR EATIN INE RATIO PANEL , URINE microalb/cre at ratio 17.3 mg/g_ creat 0.0-29 .0 Not Available [address], [address], 05/08/2024 14:38:50 05/08/20 24 05/09/2024 BASIC METAB OLIC PANEL glucose 182 mg/dL 70-100 high Not Available [address], [address], 05/09/2024 15:14:00 05/08/20 24 05/09/2024 BASIC METAB OLIC PANEL BUN 15 mg/dL 7-18 Not Available [address], [address], 05/09/2024 15:14:00 05/08/20 24 05/09/2024 BASIC METAB OLIC PANEL creatinine 1.1 mg/dL 0.8-1. 3 Not Available [address], [address], 05/09/2024 15:14:00 05/08/20 24 05/09/2024 BASIC METAB OLIC PANEL B/C 13.6 ratio Not Available [address], [address], 05/09/2024 15:14:00 05/08/20 24 05/09/2024 BASIC METAB [...] be used in pregn babak. Not Available [address], [address], 05/09/2024 15:14:00 05/08/20 24 05/09/2024 BASIC METAB OLIC PANEL sodium 140 mmol/ L 136-14 5 Not Available [address], [address], 05/09/2024 15:14:00 05/08/20 24 05/09/2024 BASIC METAB OLIC PANEL potassium 4.9 mmol/ L 3.5-5. 1 Not Available [address], [address], 05/09/2024 15:14:00 05/08/20 24 05/09/2024 BASIC METAB OLIC PANEL chloride 101 mmol/ L 96-107 Not Available [address], [address], 05/09/2024 15:14:00 05/08/20 24 05/09/2024 BASIC METAB OLIC PANEL anion gap 9.0 5.0-15 .0 Not Available [address], [address], 05/09/2024 15:14:00 05/08/20 24 05/09/2024 BASIC METAB OLIC PANEL CO2 30 mmol/ L 21-32 Not Available [address], [address], 05/09/2024 15:14:00 05/08/20 24 05/09/2024 BASIC METAB OLIC PANEL calcium 9.5 mg/dL 8.5-10 .3 Not Available [address], [address], 05/09/2024 15:14:00 11/02/19 24 11/02/2023 XR, ribs, unila teral CLINIC AL HISTOR Y: Left-s ided chest wall pain after a fall. Histor y of old fractu res. TECHNI QUE: At least 3 views of the left ribs are obtain ed. COMPAR SANDEE: 2020, 017 FINDIN GS: There are data lead ior and latera l fractu res of the left fourth , fifth, sixth ribs. There are fractu re along the latera l aspect of the left sevent h, eighth and ninth ribs. There are fractu re of along the data lead ior and beata latera l aspect s [...] ended. Vinh Thurston ana: Heladio Ibrahim ms [facility] (Imaging) [address], [place], [address], 11/13/2023 10:06:59 Result Notes None recorded. Procedures Surgical History Date Name Laterality Status Provider Name and Address Organization Details Recorded Time 01/02/2024 Katiana - EGD completed Mynor Saab MD [address] [place] [address], [id number], [facility] 01/02/2024 07:51:46 Imaging Results Imaging Date Name Status LastModified by Organiz ation Details LastModified Time 11/02/2023 XR, ribs, unilateral completed [facility] (Imaging) [address], [place], [address], 11/13/2023 10:06:59 Procedure Notes None recorded. Medical [...] LastModified by Organizat ion Details LastModified Time Do You Wear A Helmet When Biking? Yes Information not available 06/24/2015 What Is Your Level Of Caffeine Consumption? None [email or web address] Information not available 05/13/2020 How Much Tobacco Do You Chew? None Information not available 12/31/2012 What Type Of Diet Are You Following? REGULAR [email or web address] Information not available 06/24/2015 Which Illicit Or Recreational Drugs Have You Used? No Denies IVDU Information not available 01/15/2018 Education 4 Year College 17 Information not available 06/08/2011 How Many Days In The Past Year Have You Had A Heavy Drinking Consumption (4+ Female, 5+ Male)? 0 Information not available 12/31/2012 Are There Any Guns Present In Your Home? No [email or web address] Information not available 06/24/2015 Live Alone Or With Others? With Others 17 Information not available 06/08/2011 Patient Has Health Care Proxy Signed And In Chart Yes [email or web address] Information not available 11/14/2022 Marital Status [email or web address] Informatio n not available 03/01/2012 Mosquito Repellent Used Routinely Yes Information not available 01/15/2018 What Was The Date Of Your Most Recent Tobacco Screening? 05/11/2022 05/11/22 CJ [email or web address] Information not available 05/11/2022 How Many Children Do You Have? 0 17 Information not available 06/08/2011 Seat Belts Used Routinely Yes [email or web address] Information not available 06/24/2015 Smoke Alarm In Home Yes [email or web address] Information not available 06/24/2015 How Much Tobacco Do You Smoke? No 05/11/22 CJ [email or web address] Information not available 05/11/2022 What Types Of Sporting Activities Do You Participate In? No Information not available 01/15/2018 General Stress Level Low [email or web address] Information not available 06/24/2015 Do You Use Sunscreen Routinely? Yes [email or web address] Information not available 06/24/2015 How Many Years [...] tobacco? 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 Never used electronic cigarettes 10/28/2019 TG [email or web address] Information not available 10/28/2019 Mental Status None [...] SNOMED-CT Code Diagnosis ICD10 Code Diagnosis Note [id number] Raven Escobar MD , [facility], OFFICE [address] [place] [address] 08/28/2000 11:45:00 08/12/2008 02:02:29 [id number] MD RENU Delong III, [facility], OFFICE [address] [place] [address] 09/07/2006 09:25:16 09/07/2006 13:17:47 [id number] [facility] LAB LAB - [facility] [address] [facility] [place] [address] 09/27/2006 09:47:41 09/27/2006 09:47:45 [id number] Yung Escobar OD Eye Care, [facility] [address] [place] [address] 09/27/2006 10:01:46 09/27/2006 11:52:26 [id number] Yung Escobar, OD Eye Care, [facility] [address] [place] [address] 10/15/2006 14:29:42 10/15/2006 17:10:27 [id number] Montana Foreman III, MD , [facility], OFFICE [address] [place] [address] 10/17/2006 08:03:38 10/17/2006 09:08:25 [id number] [place] Foreman III, MD , [facility], OFFICE [address] [place] [address] 01/09/2007 12:05:24 01/09/2007 14:30:41 [id number] [facility] LAB LAB - [facility] [place] [address] 01/10/2007 07:28:27 01/10/2007 07:28:32 [id number] [facility] LAB - [facility] [place] [address] 01/11/2007 08:57:27 01/11/2007 08:57:35 [id number] [place] Foreman III, MD , [facility], OFFICE [address] [place] [address] 02/01/2007 08:12:35 02/01/2007 10:48:02 [id number] [facility] LAB - [facility] [place] [address] 06/11/2007 07:56:03 06/11/2007 07:56:12 [id number] [place] Foreman III, MD , [facility], OFFICE [address] [place] [address] 06/25/2007 09:01:34 08/12/2008 02:02:29 [id number] Jaziel Love DPM Podiatry, [facility] [place] [address] 07/09/2007 09:05:27 07/10/2007 09:23:03 [id number] [facility] LAB - [facility] [place] [address] 11/19/2007 10:32:30 11/19/2007 10:32:45 [id number] [place] Foreman III, MD , [facility], OFFICE [address] [place] [address] 05/12/2009 10:30:12 05/13/2009 08:35:11 [id number] MD RENU Delong III, [facility], [address] [place] [address] 06/09/2009 14:41:02 06/10/2009 09:44:59 [id number] Lolis Rincon PA-C Endocrino logy, [facility] [address] [place] [address] 06/23/2009 08:26:26 06/24/2009 09:26:23 [id number] Lolis Rincon PA-C Endocrino logy, [facility] [address] [place] [address] 08/19/2009 09:27:35 08/19/2009 14:10:39 [id number] Lolis Rincon PA-C Endocrino logy, [address] [place] [address] 11/18/2009 09:29:15 11/18/2009 10:41:01 [id number] [place] Foreman III, MD , [facility], OFFICE [address] [place] [address] [place] [address] 09/20/2010 12:01:55 09/20/2010 16:23:51 [id number] MD RENU Delong III, [facility], [address] [place] [address] 06/21/2011 09:53:16 06/21/2011 10:13:02 [id number] MD RENU Delong III, [facility], [address] [place] [address] 01/23/2012 08:10:14 01/23/2012 09:04:59 [id number] MD RENU Delong III, [facility], OFFICE [address] [place] [address] [place] [address] 03/01/2012 08:33:47 03/01/2012 09:08:14 [id number] MD RENU Delong III, [facility], [address] [place] [address] 12/31/2012 11:03:27 01/01/2013 07:35:53 [id number] MD RENU Delong III, [facility], OFFICE [address] [place] [address] [place] [id number] 05/19/2013 09:39:48 05/19/2013 09:56:44 [id number] MD RENU Delong III, [facility], OFFICE [address] [place] [address] [place] [id number] 1 08/28/2013 15:02:43 08/28/2013 15:25:22 [id number] Montana Foreman III, MD FP, [facility], OFFICE [address] [place] [address] [place] [id number] 02/26/2014 09:23:19 02/26/2014 09:55:23 [id number] Montana Foreman III, MD , [facility], OFFICE [address] [place] [address] [place] [id number] 01/05/2015 10:38:43 01/05/2015 10:57:32 [id number] PABLO Sommers, [facility], OFFICE [address] [place] [address] DR [place], [place]UAN [id number] 1 02/23/2015 09:02:42 02/23/2015 09:28:05 [id number] PABLO Sommers, [facility], [address] [place], [place]UAN [id number] 02/25/2015 09:28:28 02/25/2015 10:08:25 [id number] PABLO Sommers, [facility], OFFICE [address] [place] [address] [place] [id number] 1 02/26/2015 09:13:35 02/26/2015 09:42:40 [id number] PABLO Sommers, [facility], [address] [place] [id number] 1 03/01/2015 09:16:53 03/01/2015 09:27:47 [id number] PABLO Sommers, [facility], [address] [place] [id number] 1 06/24/2015 08:26:01 06/24/2015 09:06:08 [id number] Anali SEARS, [facility], OFFICE [address] [place] [address] DR [place] [id number] 1 12/01/2015 09:44:27 12/01/2015 10:33:57 [id number] MD RENU Barreto, [facility], OFFICE [address] [place] [address] [place] [address] 01/25/2016 09:18:19 01/25/2016 10:06:23 [id number] Anali Yanez D.O. RENU [facility], OFFICE [address] [place] [id number] 1 06/28/2016 09:35:15 06/29/2016 09:39:46 [id number] Anali Jobcolo D.O. [facility], OFFICE [address] [place] [id number] 1 10/10/2016 08:00:49 10/12/2016 15:46:30 [id number] Anali Renata D.O. RENU [facility], OFFICE [address] [place] [id number] 1 01/09/2017 07:57:33 01/10/2017 09:04:13 [id number] Anlai Yanez D.O. RENU [facility], OFFICE [address] [place] [id number] 1 02/09/2017 11:28:09 02/09/2017 12:27:37 [id number] Anali Ellis.O. RENU [facility], OFFICE [address] [place] [address] [place] [id number] 1 01/15/2018 10:28:34 01/15/2018 11:35:54 [id number] Mitesh Cheng, DPM Podiatry, [address] [place] [address] 1 01/30/2018 11:02:26 01/30/2018 14:26:05 [id number] Anali Yanez D.O. [facility], OFFICE [address] [place] [address] [place] [id number] 1 01/30/2018 15:50:18 01/30/2018 18:24:23 [id number] Jobaudilio-Radha Elmorenall, DPM Podiatry, [facility] [address] [place] [address] 02/12/2018 10:26:41 02/12/2018 11:12:01 [id number] Jobaudilio-Radha Ramíreznall, DPM Podiatry, [facility] [address] [place] [address] 02/19/2018 08:51:40 02/19/2018 09:26:45 [id number] Jobaudilio-Radha Elmorenalyuriy, DPM Podiatry, [address] [address] 03/05/2018 08:38:01 03/07/2018 14:19:36 [id number] Joudy-Radha Dinnall, DPM Podiatry, [address] [address] 05/07/2018 09:13:31 05/07/2018 09:50:36 [id number] Joudy-Radha Dinnall, DPM Podiatry, [address] [address] 05/21/2018 08:45:10 05/21/2018 16:20:21 [id number] Joudy-Radha Dinnall, DPM Podiatry, [address] [address] 07/09/2018 09:09:03 07/10/2018 08:20:30 [id number] Anali Furdonald D.O. [facility], OFFICE [address] [place] [address] [place] [id number] 1 09/06/2018 14:25:20 09/06/2018 15:02:23 [id number] Anali Ellis.OXu [facility], OFFICE [address] [place] [address] [place] [id number] 1 03/10/2019 15:51:01 03/10/2019 16:23:56 [id number] Nikole Pandya . [facility], OFFICE [address] [place] [address] [place] [id number] 1 10/28/2019 08:30:56 10/28/2019 15:14:19 [id number] Anali Ellis.OXu [address] [place] [id number] 1 05/13/2020 10:57:05 05/14/2020 11:47:45 [id number] Anali Ellis.O. [facility], OFFICE [address] [place] [address] [address] [place] [id number] 1 05/27/2020 09:04:01 05/28/2020 15:26:35 [id number] Anali Yanez D.O. [facility], OFFICE [address] [place] [address] [address] [place] [id number] 1 10/28/2020 07:51:21 11/19/2020 16:22:56 [id number] Anali Ellis.O. [address] [place] [address] 1 11/18/2020 08:16:03 11/19/2020 16:14:08 [id number] Mynor Saab MD [address] [place] [address] 1 11/26/2020 06:44:42 11/26/2020 12:47:20 [id number] Anali Furcolo D.O. [address] [place] [address] 1 06/03/2021 14:03:53 06/03/2021 14:47:31 [id number] Jarocho Browne MD [address] [place] [address] 1 06/13/2021 08:59:47 06/13/2021 09:45:05 [id number] Anali Furcolo D.O. [address] [place] [address] 1 11/03/2021 08:30:54 11/03/2021 09:02:37 [id number] Anali Furcolo D.O. [address] [place] [address] 1 05/11/2022 09:14:18 05/11/2022 09:53:17 [id number] Anali Furcolo D.O. [address] [place] [address] 1 11/10/2022 08:27:54 11/10/2022 09:18:34 [id number] Jarocho Browne MD [address] [place] [address] 1 05/10/2023 09:15:35 05/14/2023 08:33:22 [id number] Mynor Saab MD [address] [place] [address] 1 01/02/2024 06:45:56 01/02/2024 10:51:16 [id number] Nikole Pandya . , [address] [place] [address] 1 11/02/2023 08:07:58 11/02/2023 10:18:03 [id number] MD RENU Barreto, [facility], OFFICE [address] [place] [address] 1 11/13/2023 09:46:52 11/13/2023 13:24:43 [id number] Jarocho Browne MD , [facility], OFFICE [address] [place] [address] 1 05/15/2024 08:13:22 05/15/2024 10:18:36 Health Concerns Section Related Observation LastModified by Organization Detai ls LastModified Time None Recorded Concern Status LastModified by Organization Details LastModified Time None Recorded Advance Directives Directive None Recorded Payers Encounter Date Sequence Insurance Name Policy Number Policy Padron Covered Member ID Padron Member ID Guarantor Name 11/10/2022 1 [employer] [id number] Timo Meng [id number] Timo Meng 05/10/2023 1 [place] [employer] [id number] Timo Meng [id number] Timo Meng 11/02/2023 1 [employer] [employer] [place] Timo Meng [id number] Timo Meng 11/13/2023 1 [place] [employer] [place] Timo Meng [id number] Timo Meng 05/15/2024 1 [employer] [employer] [place] [employer] Timo Meng [id number] Timo Meng
== END 2024-12-04 08:56 | disposition home or self-care (01) ==
LOC: HO.HUSH 08:38
PROVIDERS: PCP Nurse Practitioner Adult Health; Visit Provider Urology
DX: E11.69 Type 2 diabetes mellitus with other specified complication (principal); N52.1 Erectile dysfunction due to diseases classified elsewhere; N32.0 Bladder-neck obstruction
CPT/HCPCS: 99213

== ENCOUNTER 2024-12-24 08:41 | Outpatient (AMB) | payer BC, SELFPAY ==
[2024-12-24 08:53] VITALS: BMI 29.8
--- NOTE | 2024-12-24 08:53 | A.OFFVIS_ITS ---
Vital Signs 12/24/24 08:53 Height 5 ft 7 in Weight 190 lb BMI 29.8 Intake Visit Reasons: PO RT [employer] release 11/11/24 AR Intake Note: Timo 54 yr old male presents today for his PO visit for his right RT [employer] release 11/11/24 AR. At his last visit he was given a return to work note for light duty no more than 2 lb weight limit. Currently states has no pain, no concerns and f eels he is ready to return to full duty. Allergies No Known Allergies Allergy (Verified 12/24/24 08:54) HPI HPI PO RT [employer] release 11/11/24 AR: Details: Timo is a 54 year old right hand dominant man who returns S/P right 1st dorsal compartment release, DOS: 11/11/24. He says he is doing well and his pain has resolved. He is happy with the results of his surgery. 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 He says this was going well and he would like to return to full duty. He reports a prior dog bite injury to his right hand, DOI: 01/14/24. He says this went on to heal well. [facility] Medical History Erectile dysfunction Hypercholesteremia Diabetes Hypertension Surgical History Hx of colonoscopy Social History Are you a primary care manager cna to a significant other at home: No Do you presently have visiting nurse or other home services: No Patient Tobacco Use Status: Never used Tobacco Current occupation: [employer] [place] Review of Systems Const All systems reviewed & are unremarkable except as noted in HPI and below Physical Exam Vital Signs: BMI result Body Mass Index 29.8 Const General: no acute distress and alert Orientation/consciousness: patient oriented x3 Neuro General: patient oriented x3 Extrem Other: Evaluation of Right Upper Extremity: The patient is alert, oriented, and in no acute distress Neuro: Median, Ulnar, Radial nerves motor and sensory intact and sensation is normal to the tips of all digits Vascular: Cap refill brisk ROM: He can make a fist and extend all his digits No tenderness over the `1st dorsal compartment Negative Yakov test Psych Appearance: grossly normal Affect: normal affect Attitude: cooperative Assessment & Plan Assessment & Plan (1) De Quervain's tenosynovitis, right: Code(s): M65.4 - Radial styloid tenosynovitis [de Quervain] Category: Medical Plan Assessment & Plan: 1. Right De Quervain's tenosynovitis, S/P release & Tenosynovectomy of right APL tendon DOS: 11/11/24 Negative Yakov test The patient appears to be doing well post-operatively I discussed activity modifications, he is to return to all normal activities. 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 He was given a note for work to return to full duty, without restrictions, effective 12/26/24. He will follow up prn 2. Right hand dog bite DOI: 01/14/24 Managed at [facility] No complaints today Scribed for Meaghan Kaiser MD by Ermias Sheffield, medical receptionist, on 12/24/24 at 9:05 AM, EST. Coding Level of Care Code Global (32724) Diagnoses De Quervain's tenosynovitis, right M65.4
--- OUTSIDE RECORDS SUMMARY | 2024-12-24 08:59 | XMS_ITS | Data Portability ---
Author Organization [facility], , [facility] Address [address] [place] [address] Care Team Providers Care Banquet Server Name Role Phone AYDEE CLARKE Primary Care Provider EYE DR Fuel Verification Technician [facility] Pci Security Consultant [facility] Urologist Assessment Encounter Date Assessment Date Assessment LastModified by Organization Details LastModified Time 05/10/2023 05/10/2023 After a discussion of treatment [...] were adopted: [email or web address] Not available 05/15/2024 08:58:06 12/10/2024 12/10/2024 After a discussion of treatment options, which included consideration of best practices and patient preferences, the following treatment plan and objectives were adopted: pkeough Not available 12/10/2024 09:32:07 Plan of Treatment Reminders Order Date Submit Date Provider Last Modified By Organization Details Last Modified Time Details Appointments LAB Follow-Up 2024 07:20A M [facility] Lab Not available Not available Not available Medical Managemen t 15 2024 10:30A M Aydee Clarke, TURNER MACHINE OPERATOR Not available Not available Not available LAB Follow-Up 2025 07:20A M [facility] Lab Not available Not available Not available Wellness Visit 30 2025 11:15A M Aydee Clarke, TURNER MACHINE OPERATOR Not available Not available Not available Lab HbA1c (hemoglob in A1c), blood 2022 024 [facility], [address], [place], [address], 08/09/2023 10:57:33 Referral gastroent erologist referral - per dentist as significa nt erosion of enamel 2022 023 [facility], [address] [place], [address], 09/28/2023 12:31:18 Procedures None recorded. Surgeries None recorded. Imaging XR, ribs, unilatera l - eval for fractured ribs, s/p fall on stone wall on L side 2023 024 [facility] ([facility]), [address] , [place], [address], 11/02/2023 10:18:03 Medication Orders simvastat in 20 mg tablet 2023 024 [id number], [address] [place] [address], [address], 05/15/2024 08:59:23 metformin ER 500 mg tablet,ex tended release 24 hr 2023 024 [id number], [address] [place] [address], [address], 05/15/2024 08:59:23 lisinopri l 10 mg tablet 2023 024 [facility], [address] [place] [address], [address], 05/15/2024 08:59:22 ibuprofen 800 mg tablet 2023 024 pkeough [facility]0818, [address] [place], [address], 11/13/2023 10:26:24 lisinopri l 10 mg tablet 2023 024 [facility] #0818, [address] [place], [address], 11/13/2023 10:26:18 ibuprofen 800 mg tablet 2023 024 [facility], [address] [place], [address], 11/02/2023 08:27:07 Patient TargetsNo targets recorded. Patient Instructions Encounter Date Encounter Id Patient Instructions Last Modified By Organization Details Last Modified Time 11/13/2023 [id number] high blood pressure: care instructions [email or web address] Not available 11/13/2023 10:26:16 learning about high blood pressure pkeough Not available 11/13/2023 10:26:16 05/15/2024 [id number] high blood pressure: care instructions pkeough Not available 05/15/2024 08:59:20 learning about high blood pressure pkeough Not available 05/15/2024 08:59:20 Reason for Referral Pci Security Consultant Referral for Erosion of teeth per dentist as significant erosion of enamel Referring Physician: Aydee Clarke, Family Medicine, Encounter Date: 05/10/2023 Results Created Date Observation Date Name Description Value Unit Range Abnormal Flag Note LastModifiedBy Organization Detail LastModifiedTime 05/03/2005/03/2023 HGB A1C hemoglobin A1C 7.1 % [...] er confi rmati on Not Available [address], [place], [address], 05/03/2023 12:05:19 05/03/20 23 05/03/2023 HGB A1C estimated average glucose 157.1 mg/dL Not Available [address], [address], 05/03/2023 12:05:19 05/03/20 23 05/03/2023 BASIC METAB OLIC PANEL glucose 173 mg/dL 70-100 high Not Available [address], [address], 05/03/2023 12:12:20 05/03/20 23 05/03/2023 BASIC METAB OLIC PANEL BUN 17 mg/dL 7-18 Not Available [address], [address], 05/03/2023 12:12:20 05/03/20 23 05/03/2023 BASIC METAB OLIC PANEL creatinine 1.0 mg/dL 0.8-1. 3 Not Available [address], [address], 05/03/2023 12:12:20 05/03/2005/03/2023 BASIC METAB OLIC PANEL B/C 17.0 ratio Not Available [address], [address], 05/03/2023 12:12:20 05/03/2005/03/2023 BASIC METAB OLIC PANEL [...] be used in pregn babak. Not Available [address], [address], 05/03/2023 12:12:20 05/03/20 23 05/03/2023 BASIC METAB OLIC PANEL sodium 138 mmol/ L 136-14 5 Not Available [address], [address], 05/03/2023 12:12:20 05/03/2005/03/2023 BASIC METAB OLIC PANEL potassium 4.2 mmol/ L 3.5-5. 1 Not Available [address], [address], 05/03/2023 12:12:20 05/03/2005/03/2023 BASIC METAB OLIC PANEL chloride 102 mmol/ L 96-107 Not Available [address], [address], 05/03/2023 12:12:20 05/03/2005/03/2023 BASIC METAB OLIC PANEL anion gap 11.9 5.0-15 .0 Not Available [address], [address], 05/03/2023 12:12:20 05/03/2005/03/2023 BASIC METAB OLIC PANEL CO2 24 mmol/ L 21-32 Not Available [address], [address], 05/03/2023 12:12:20 05/03/2005/03/2023 BASIC METAB OLIC PANEL calcium 9.0 mg/dL 8.5-10 .3 Not Available [address], [address], 05/03/2023 12:12:20 05/03/2005/03/2023 LIPID PANEL cholesterol 148 mg/dL <200 mg/dl Sudhir able 200-2 39 mg/dl Maríade rline High >240 mg/dl High Not Available [address], [address], 05/03/2023 12:12:21 05/03/20 23 05/03/2023 LIPID PANEL triglyceride s 323 mg/dL high <150 mg/dL Viki l 150-1 99 mg/dL Borde rline High 200-4 99 mg/dL High >500 mg/dL Very High Not Available [address], [address], 05/03/2023 12:12:21 05/03/20 23 05/03/2023 LIPID PANEL direct HDL 42 mg/dL <40 mg/dl - Major Risk for CHD >60 mg/dl - Negat berta Risk for CHD Not Available [address], [address], 05/03/2023 12:12:21 05/03/2005/03/2023 DIREC T LDL direct [...] r is not jose ferrera. Not Available [address], [address], 05/03/2023 14:38:05 05/03/20 23 05/03/2023 MICRO ALBUM IN/CR EATIN INE RATIO PANEL , URINE microalbumin 8.0 mg/L 1.3-20 .0 Not Available [address], [address], 05/03/2023 15:48:25 05/03/20 23 05/03/2023 MICRO ALBUM IN/CR EATIN INE RATIO PANEL , URINE creatinine urine 139.3 mg/dL 30.0-1 25.0 high Not Available [address], [address], 05/03/2023 15:48:25 05/03/20 23 05/03/2023 MICRO ALBUM IN/CR EATIN INE RATIO PANEL , URINE microalb/cre at ratio 5.7 mg/g_ creat 0.0-29 .0 Not Available [address], [address], 05/03/2023 15:48:25 08/09/19 24 08/09/2023 BASIC METAB OLIC PANEL glucose 168 mg/dL 70-100 high Not Available [address], [address], 08/09/2023 10:55:05 08/09/19 24 08/09/2023 BASIC METAB OLIC PANEL BUN 17 mg/dL 7-18 Not Available [address], [address], 08/09/2023 10:55:05 08/09/19 24 08/09/2023 BASIC METAB OLIC PANEL creatinine 1.1 mg/dL 0.8-1. 3 Not Available [address], [address], 08/09/2023 10:55:05 08/09/19 24 08/09/2023 BASIC METAB OLIC PANEL B/C 15.5 ratio Not Available [address], [address], 08/09/2023 10:55:05 08/09/19 24 08/09/2023 BASIC METAB [...] be used in pregn babak. Not Available [address], [address], 08/09/2023 10:55:05 08/09/19 24 08/09/2023 BASIC METAB OLIC PANEL sodium 139 mmol/ L 136-14 5 Not Available [address], [address], 08/09/2023 10:55:05 08/09/19 24 08/09/2023 BASIC METAB OLIC PANEL potassium 4.3 mmol/ L 3.5-5. 1 Not Available [address], [address], 08/09/2023 10:55:05 08/09/19 24 08/09/2023 BASIC METAB OLIC PANEL chloride 102 mmol/ L 96-107 Not Available [address], [address], 08/09/2023 10:55:05 08/09/19 24 08/09/2023 BASIC METAB OLIC PANEL anion gap 10.8 5.0-15 .0 Not Available [address], [address], 08/09/2023 10:55:05 08/09/19 24 08/09/2023 BASIC METAB OLIC PANEL CO2 26 mmol/ L 21-32 Not Available [address], [address], 08/09/2023 10:55:05 08/09/19 24 08/09/2023 BASIC METAB OLIC PANEL calcium 8.9 mg/dL 8.5-10 .3 Not Available [address], [address], 08/09/2023 10:55:05 08/09/19 24 08/09/2023 HGB A1C [...] er confi rmati on Not Available [address], [address], 08/09/2023 10:57:32 08/09/19 24 08/09/2023 HGB A1C estimated average glucose 157.1 mg/dL Not Available [address], [address], 08/09/2023 10:57:32 10/25/19 24 10/25/2023 HGB A1C [...] er confi rmati on Not Available [address], [address], 10/25/2023 11:15:39 10/25/19 24 10/25/2023 HGB A1C estimated average glucose 139.9 mg/dL Not Available [address], [address], 10/25/2023 11:15:39 10/25/19 24 10/25/2023 BASIC METAB OLIC PANEL glucose 149 mg/dL 70-100 high Not Available [address], [address], 10/25/2023 16:27:42 10/25/19 24 10/25/2023 BASIC METAB OLIC PANEL BUN 21 mg/dL 7-18 high Not Available [address], [address], 10/25/2023 16:27:42 10/25/19 24 10/25/2023 BASIC METAB OLIC PANEL creatinine 1.0 mg/dL 0.8-1. 3 Not Available [address], [address], 10/25/2023 16:27:42 10/25/19 24 10/25/2023 BASIC METAB OLIC PANEL B/C 21.0 ratio Not Available [address], [address], 10/25/2023 16:27:42 10/25/19 24 10/25/2023 BASIC METAB [...] be used in pregn babak. Not Available [address], [address], 10/25/2023 16:27:42 10/25/19 24 10/25/2023 BASIC METAB OLIC PANEL sodium 139 mmol/ L 136-14 5 Not Available [address], [address], 10/25/2023 16:27:42 10/25/19 24 10/25/2023 BASIC METAB OLIC PANEL potassium 4.4 mmol/ L 3.5-5. 1 Not Available [address], [address], 10/25/2023 16:27:42 10/25/19 24 10/25/2023 BASIC METAB OLIC PANEL chloride 101 mmol/ L 96-107 Not Available [address], [address], 10/25/2023 16:27:42 10/25/19 24 10/25/2023 BASIC METAB OLIC PANEL anion gap 12.9 5.0-15 .0 Not Available [address], [address], 10/25/2023 16:27:42 10/25/19 24 10/25/2023 BASIC METAB OLIC PANEL CO2 25 mmol/ L 21-32 Not Available [address], [address], 10/25/2023 16:27:42 10/25/19 24 10/25/2023 BASIC METAB OLIC PANEL calcium 9.1 mg/dL 8.5-10 .3 Not Available [address], [address], 10/25/2023 16:27:42 10/25/19 24 10/25/2023 LIPID PANEL cholesterol 113 mg/dL <200 mg/dl Sudhir able 200-2 39 mg/dl Borde rline High >240 mg/dl High Not Available [address], [address], 10/25/2023 16:27:43 10/25/19 24 10/25/2023 LIPID PANEL triglyceride s 205 mg/dL <150 mg/dL Viki l 150-1 99 mg/dL Borde rline High 200-4 99 mg/dL High >500 mg/dL Very High Not Available [address], [address], 10/25/2023 16:27:43 10/25/19 24 10/25/2023 LIPID PANEL direct HDL 42 mg/dL <40 mg/dl - Major Risk for CHD >60 mg/dl - Negat berta Risk for CHD Not Available [address], [address], 10/25/2023 16:27:43 10/25/19 24 10/25/2023 LDL - [...] r is not neces maisha. Not Available [address], [address], 10/25/2023 16:27:44 10/25/19 24 10/26/2023 IMMUN OGLOB ULIN A immunoglobul in A 125 mg/dL 47-310 normal Not Available [facility] [address], [place], [address], 10/26/2023 16:02:40 10/25/19 24 10/26/2023 TISSU E TRANS GLUTA SANDRINE E AB, IGA tissue transglutami nase Ab, IgA <1.0 U/mL normal Value Inter preta tion ----- ----- ----- ---- <15.0 Antib tobias not detec audelia > or = 15.0 Antib tobias detec audelia Not Available [email or web address] [address], [place], [address], 10/26/2023 16:02:41 01/02/20 24 01/02/2024 POC GLU POC glu 179 70 - 100 high Not Available [facility] [address] [place] [address], [address], 01/04/2024 09:10:15 05/08/20 24 05/08/2024 HGB A1C [...] er confi rmati on Not Available [address], [address], 05/08/2024 11:51:31 05/08/20 24 05/08/2024 HGB A1C estimated average glucose 151.3 mg/dL Not Available [address], [address], 05/08/2024 11:51:31 05/08/2005/08/2024 MICRO ALBUM IN/CR EATIN INE RATIO PANEL , URINE microalbumin 21.0 mg/L 1.3-20 .0 high Not Available [address], [address], 05/08/2024 14:38:50 05/08/2005/08/2024 MICRO ALBUM IN/CR EATIN INE RATIO PANEL , URINE creatinine urine 121.7 mg/dL 30.0-1 25.0 Not Available [address], [address], 05/08/2024 14:38:50 05/08/2005/08/2024 MICRO ALBUM IN/CR EATIN INE RATIO PANEL , URINE microalb/cre at ratio 17.3 mg/g_ creat 0.0-29 .0 Not Available [address], [address], 05/08/2024 14:38:50 05/08/2005/09/2024 BASIC METAB OLIC PANEL glucose 182 mg/dL 70-100 high Not Available [address], [address], 05/09/2024 15:14:00 05/08/2005/09/2024 BASIC METAB OLIC PANEL BUN 15 mg/dL 7-18 Not Available [address], [address], 05/09/2024 15:14:00 05/08/2005/09/2024 BASIC METAB OLIC PANEL creatinine 1.1 mg/dL 0.8-1. 3 Not Available [address], [address], 05/09/2024 15:14:00 05/08/2005/09/2024 BASIC METAB OLIC PANEL B/C 13.6 ratio Not Available [address], [address], 05/09/2024 15:14:00 05/08/2005/09/2024 BASIC METAB OLIC PANEL [...] be used in pregn babak. Not Available [address], [address], 05/09/2024 15:14:00 05/08/2005/09/2024 BASIC METAB OLIC PANEL sodium 140 mmol/ L 136-14 5 Not Available [address], [address], 05/09/2024 15:14:00 05/08/2005/09/2024 BASIC METAB OLIC PANEL potassium 4.9 mmol/ L 3.5-5. 1 Not Available [address], [address], 05/09/2024 15:14:00 05/08/2005/09/2024 BASIC METAB OLIC PANEL chloride 101 mmol/ L 96-107 Not Available [address], [address], 05/09/2024 15:14:00 05/08/2005/09/2024 BASIC METAB OLIC PANEL anion gap 9.0 5.0-15 .0 Not Available [address], [address], 05/09/2024 15:14:00 05/08/2005/09/2024 BASIC METAB OLIC PANEL CO2 30 mmol/ L 21-32 Not Available [address], [address], 05/09/2024 15:14:00 05/08/2005/09/2024 BASIC METAB OLIC PANEL calcium 9.5 mg/dL 8.5-10 .3 Not Available [address], [address], 05/09/2024 15:14:00 12/05/1912/05/2024 BASIC METAB OLIC PANEL glucose 160 mg/dL 70-100 high Not Available [address], [address], 12/05/2024 16:01:35 12/05/1912/05/2024 BASIC METAB OLIC PANEL BUN 17 mg/dL 7-18 Not Available [address], [address], 12/05/2024 16:01:35 12/05/1912/05/2024 BASIC METAB OLIC PANEL creatinine 1.0 mg/dL 0.8-1. 3 Not Available [address], [address], 12/05/2024 16:01:35 12/05/1912/05/2024 BASIC METAB OLIC PANEL B/C 17.0 ratio Not Available [address], [address], 12/05/2024 16:01:35 12/05/1912/05/2024 BASIC METAB OLIC PANEL GFR >=60ML /MIN [...] be used in pregn babak. Not Available [address], [address], 12/05/2024 16:01:35 12/05/1912/05/2024 BASIC METAB OLIC PANEL sodium 138 mmol/ L 136-14 5 Not Available [address], [address], 12/05/2024 16:01:35 12/05/1912/05/2024 BASIC METAB OLIC PANEL potassium 4.4 mmol/ L 3.5-5. 1 Not Available [address], [address], 12/05/2024 16:01:35 12/05/1912/05/2024 BASIC METAB OLIC PANEL chloride 102 mmol/ L 96-107 Not Available [address], [address], 12/05/2024 16:01:35 12/05/1912/05/2024 BASIC METAB OLIC PANEL anion gap 12.4 5.0-15 .0 Not Available [address], [address], 12/05/2024 16:01:35 12/05/1912/05/2024 BASIC METAB OLIC PANEL CO2 24 mmol/ L 21-32 Not Available [address], [address], 12/05/2024 16:01:35 12/05/1912/05/2024 BASIC METAB OLIC PANEL calcium 9.0 mg/dL 8.5-10 .3 Not Available [address], [address], 12/05/2024 16:01:35 12/05/1912/05/2024 LIPID PANEL cholesterol 116 mg/dL <200 mg/dl Sudhir able 200-2 39 mg/dl Borde rline High >240 mg/dl High Not Available [address], [address], 12/05/2024 16:01:36 12/05/1912/05/2024 LIPID PANEL triglyceride s 184 mg/dL <150 mg/dL Viki l 150-1 99 mg/dL Borde rline High 200-4 99 mg/dL High >500 mg/dL Very High Not Available [address], [address], 12/05/2024 16:01:36 12/05/1912/05/2024 LIPID PANEL direct HDL 41 mg/dL <40 mg/dl - Major Risk for CHD >60 mg/dl - Negat berta Risk for CHD Not Available [address], [address], 12/05/2024 16:01:36 12/05/1912/05/2024 LDL - CALCU LATED LDL - calculated 38 RISK CATEG ORY LDL GOAL _ CHD [...] r is not neces maisha. Not Available [address], [address], 12/05/2024 16:01:37 11/02/19 24 11/02/2023 XR, ribs, unila teral CLINIC AL HISTOR Y: Left-s ided chest wall pain after a fall. Histor y of old fractu res. TECHNI QUE: At least 3 views of the left ribs are obtain ed. COMPAR SANDEE: 2020, 017 FINDIN GS: There are car knocker ior and latera l fractu res of the left fourth , fifth, sixth ribs. There are fractu re along the latera l aspect of the left sevent h, eighth and ninth ribs. There are fractu re of along the car knocker ior and beata latera l aspect s [...] Vinh everett Physic ana: Heladio Ibrahim ms [facility] ([facility]) [address], [place], [address], 11/13/2023 10:06:59 Result Notes None recorded. Problems Name Problem SNOMED Code Status Onset Date Resolution Date Notes Provider Name and Address Organization Details Recorded Time Benign essentia l hyperten andra 5686510 Active Not Available 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 2 09:32:40 Injury of finger 25985976 Completed 200003/01/2012 Aydee Clarke NP [address] [place] [address], [address] , [facility] 6 10:22:10 Testicul ar hypofunc tion 548954830 Completed 200603/01/2012 Aydee Clarke NP [address] [place] [address], [address] , [facility] 6 10:22:10 Essentia l hyperten andra 57289729 Completed 200003/01/2012 Aydee Clarke NP [address] [place] [address], [address] , [facility] 6 10:22:10 Diabetes mellitus 29412468 Completed 02/26/2014 Aydee Clarke NP [address] [place], [address] , [facility] 6 10:22:10 Type 2 diabetes mellitus without complica tion 229392836 Active 2006 Not Available [facility] 2 09:32:40 Insect bite to trunk - nonvenom ous 065517780 Completed 03/01/2012 Aydee Clarke NP [address] [place], [address] , [facility] 6 10:22:10 Benign essentia l hyperten andra 0513585 Completed 200603/01/2012 Aydee Clarke NP [address] [place], [address] , [facility] 6 10:22:10 Atrial fibrilla tion 99830487 Completed 03/01/2012 Aydee Clarke NP [address] [place], [address] , [facility] 6 10:22:10 Morbid obesity 775321191 Completed 200603/01/2012 Aydee Clarke NP [address] [place], [address] , [facility] 6 10:22:10 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 Procedures Surgical History Date Name Laterality Status Provider Name and Address Organization Details Recorded Time 2 Obesity counseling completed Aydee Clarke NP [address] [place], [address], [facility] 11/03/2021 09:05:56 2 prevention-card iovascular risk reduction counseling completed Aydee Clarke NP [address] [place], [address], [facility] 11/03/2021 09:05:36 1 Katiana - Colonoscopy completed Mynor Saab MD [address] [place], [address], [facility] 11/26/2020 07:46:53 1 prevention-card iovascular risk reduction counseling completed Esther Melendez [facility] 10/28/2020 07:54:46 1 prevention-vianey al alcohol misuse screening completed Esther Melendez [facility] 10/28/2020 07:54:46 0 prevention-card iovascular risk reduction counseling completed Esther Melendez [facility] 05/13/2020 10:57:32 0 prevention-vianey al alcohol misuse screening completed Esther Melendez [facility] 05/13/2020 10:57:32 5 Destruction of skin lesion completed Montana Foreman III, MD [address] [place] [address], [address], [facility] 01/05/2015 10:59:27 Imaging Results None recorded. Procedure Notes None recorded. Medical Equipment None [...] 1 TABLET BY MOUTH DAILY FOR LUTS active Not Available Not Available No t Available tadalafil 20 mg tablet PLEASE SEE ATTACHED FOR DETAILED DIRECTIO NS 12/10 completed Not Available Not Available Not Available [...] Not Available Vitals Date Recorded Body height Body mass index (BMI) Body weight Heart rate Oxygen saturation Oxygen saturation in Arterial blood by Pulse oximetry Systolic blood pressure Diastolic blood pressure Provider Name and Address Organization Details Last Updated DateTime 4 168.28 cm 31.8 kg/m2 52349.6 9 g 105 /min 99 % 99 % 150 mm[Hg] 82 mm[Hg] Samantha Galindo [facility] 4 08:15:04 Date Recorded Body height Body mass index (BMI) Body weight Oxygen saturation Oxygen saturation in Arterial blood by Pulse oximetry Heart rate Systolic blood pressure Diastolic blood pressure Systolic blood pressure Diastolic blood pressure Provider Name and Address Organization Details Last Updated DateTime 4 168.28 cm 31.1 kg/m2 02110.9 2 g 100 % 100 % 88 /min 125 mm[Hg] 84 mm[Hg] 133 mm[Hg] 74 mm[Hg] Adrián Worthington [facility] 4 11:24:46 Date Recorded Body height Oxygen saturation Oxygen saturation in Arterial blood by Pulse oximetry Heart rate Systolic blood pressure Diastolic blood pressure Provider Name and Address Organization Details Last Updated DateTime 5 168.28 cm 98 % 98 % 76 /min 124 mm[Hg] 78 mm[Hg] Dina [facility] 5 09:24:30 Date Recorded Body height Body mass index (BMI) Body weight Heart rate Systolic blood pressure Diastolic blood pressure Provider Name and Address Organization Details Last Updated DateTime 3 168.28 cm 30.4 kg/m2 86078.5 5 g 81 /min 114 mm[Hg] 73 mm[Hg] Adrián Worthington [facility] 3 09:28:45 Date Recorded Body height Body mass index (BMI) Body weight Oxygen saturation Oxygen saturation in Arterial blood by Pulse oximetry Heart rate Systolic blood pressure Diastolic blood pressure Provider Name and Address Organization Details Last Updated DateTime 4 168.28 cm 30.1 kg/m2 43970.3 7 g 97 % 97 % 77 /min 104 mm[Hg] 62 mm[Hg] PHUONG Paul [facility] 4 08:26:48 Social History Question Answer Notes LastModified by Organizat ion Details LastModified Time Tobacco Smoking Status Never Smoker checked kb 05-15-24 12/10/24[facility] 12/10/2024 09:20:04 Do You Wear A Helmet When Biking? Yes [email or web address] Information not available 06/24/2015 What Is Your Level Of Caffeine Consumption? Moderate [email or web address] Information not available 12/10/2024 How Much Tobacco Do You Chew? None Information not available 12/31/2012 What Type Of Diet Are You Following? REGULAR [email or web address] Information not available 06/24/2015 Which Illicit Or Recreational Drugs Have You Used? No Denies IVDU Information not available 01/15/2018 Education 4 Year College 17 Information not available 06/08/2011 How Many Days In The Past Year Have You Had A Heavy Drinking Consumption (4+ Female, 5+ Male)? 0 Information not available 12/31/2012 Are There Any Guns Present In Your Home? No [email or web address] Information not available 06/24/2015 Live Alone Or [...] Have? 0 17 Information not available 06/08/2011 What Is Your Relationship Status? [email or web address] Information not available 12/10/2024 Seat Belts Used Routinely Yes [email or web address] Information not available 06/24/2015 Smoke Alarm In Home Yes [email or web address] Information not available 06/24/2015 How Much Tobacco Do You Smoke? No 05/11/22 CJ [email or web address] Information not available 05/11/2022 What Types Of Sporting Activities Do You Participate In? No Information not available 01/15/2018 General Stress Level Low [email or web address] Information not available 06/24/2015 Do You Use Sunscreen Routinely? Yes [email or web address] Information not available 06/24/2015 How Many Years Have You Smoked Tobacco? 0 Information not available 10/28/2019 Sex: Male Functional Status Question Answer Note LastModified by Organizat ion Details LastModified Time What is your level of alcohol consumption? Moderate 5 days a week- 4 shot glasses a day Vodka -smirnof. 3-4 times a week 3 or 4 drinks [email or web address] Information not available 12/10/2024 Do you or have you ever used smokeless tobacco? Never used smokeless tobacco 10/28/2019 TG [email or web address] Information not available 10/28/2019 Are you currently employed? 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 Never used electronic cigarettes 10/28/2019 TG [email or web address] Information not available 10/28/2019 Mental Status None [...] 06/07/2011 05:21:29 Tdap 007 completed Not Available [facility] 06/07/2011 05:21:29 pneumococcal polysaccharide PPV23 009 completed Not Available [facility] 08/09/2019 02:38:00 Td (adult), 2 Lf tetanus toxoid, preservative free, adsorbed 018 completed Not Available [facility] 08/09/2019 02:22:36 Influenza, split virus, quadrivalent, PF 022 cancelled patient objection Anali Yanez D.O. [address] [place], [address], [facility] 05/11/2022 11:18:26 Influenza, split virus, quadrivalent, PF 023 cancelled patient objection Nikole Pandya. [address] [place] [address], [address], [facility] 05/13/2023 15:47:02 COVID-19, mRNA, LNP-S, PF, 30 mcg/0.3 mL dose 021 completed BLAINE Vance, [facility] 06/03/2021 14:14:02 COVID-19, mRNA, LNP-S, PF, 30 mcg/0.3 mL dose 021 completed BLAINE Vance, [facility] 06/03/2021 14:14:12 COVID-19, mRNA, LNP-S, PF, 100 mcg/0.5mL dose or 50 mcg/0.25mL dose 022 completed JUAN Alvarez, [facility] 08/22/2021 14:21:46 Past Encounters Encounter ID Performer Location Encounter Start Date Encounter Closed Date Diagnosis/Indication Diagnosis SNOMED-CT Code Diagnosis ICD10 Code Diagnosis Note [id number] Raven Escobar MD , [facility], OFFICE [address] [place] [address] 08/28/2000 11:45:00 08/12/2008 02:02:29 [id number] MD RENU Delong III, [facility], OFFICE [address] [place] [address] 09/07/2006 09:25:16 09/07/2006 13:17:47 [id number] [facility] - [facility] [place] [address] 09/27/2006 09:47:41 09/27/2006 09:47:45 [id number] Yung Escobar, OD Eye Care, [facility] [place] [address] 09/27/2006 10:01:46 09/27/2006 11:52:26 [id number] Yung Escobar, OD Eye Care, [facility] [place] [address] 10/15/2006 14:29:42 10/15/2006 17:10:27 [id number] Montana Foreman III, MD , [facility], OFFICE [address] [place] [address] 10/17/2006 08:03:38 10/17/2006 09:08:25 [id number] Montana Foreman III, MD , [facility], OFFICE [address] [place] [address] 01/09/2007 12:05:24 01/09/2007 14:30:41 [id number] [facility] - [address] [place] [address] 01/10/2007 07:28:27 01/10/2007 07:28:32 [id number] [facility] - [facility] [place] [address] 01/11/2007 08:57:27 01/11/2007 08:57:35 [id number] Montana Foreman III, MD , [facility], OFFICE [address] [place] [address] 02/01/2007 08:12:35 02/01/2007 10:48:02 [id number] [facility] - [address] [place] [address] 06/11/2007 07:56:03 06/11/2007 07:56:12 [id number] Montana Foreman III, MD , [facility], OFFICE [address] [place] [address] 06/25/2007 09:01:34 08/12/2008 02:02:29 [id number] Jaziel Love DPM Podiatry, [address] [place] [address] 07/09/2007 09:05:27 07/10/2007 09:23:03 [id number] [facility] - [address] [place] [address] 1 11/19/2007 10:32:30 11/19/2007 10:32:45 [id number] Montana Foreman III, MD , [facility], OFFICE [address] [place] [address] [place] [address] 05/12/2009 10:30:12 05/13/2009 08:35:11 [id number] Montana Foreman III, MD , [facility], OFFICE [address] [place] [address] [place] [address] 06/09/2009 14:41:02 06/10/2009 09:44:59 [id number] Lolis Rincon PA-C [facility]ocr[facility], [address] [place] [address] 06/23/2009 08:26:26 06/24/2009 09:26:23 [id number] Lolis Rincon PA-C Endocrino logy, [address] [place] [address] 08/19/2009 09:27:35 08/19/2009 14:10:39 [id number] Lolis Rincon PA-C Endocrino logy, [address] [place] [address] 1 11/18/2009 09:29:15 11/18/2009 10:41:01 [id number] Montana Foreman III, MD , [facility], [address] [place] [address] 09/20/2010 12:01:55 09/20/2010 16:23:51 [id number] Montana Foreman III, MD , [facility], [address] [place] [address] 06/21/2011 09:53:16 06/21/2011 10:13:02 [id number] Montana Foreman III, MD , [facility], [address] [place] [address] 01/23/2012 08:10:14 01/23/2012 09:04:59 [id number] Montana Foreman III, MD , [facility], OFFICE [address] [place] [address] [place] [id number] 03/01/2012 08:33:47 03/01/2012 09:08:14 [id number] Montana Foreman III, MD , [facility], OFFICE [address] [place] [address] [place] [id number] 12/31/2012 11:03:27 01/01/2013 07:35:53 [id number] Montana Foreman III, MD , [facility], OFFICE [address] [place] [address] 05/19/2013 09:39:48 05/19/2013 09:56:44 Nonvenomous insect bite of multiple sites [id number] Montana Foreman III, MD , [facility], OFFICE [address] [place] [address] 08/28/2013 15:02:43 08/28/2013 15:25:22 Benign essential hypertension 9063848 continue to work on diet ,exercisea nd lowering salt intake as discussed Mixed hyperlipidemia 076933120 continue to work on diet and exercise as discussed Adult [facility] th examination [id number] see Risk Assessment and Lifestyle Change Counseling section above Counseling [id number] Type 2 nora betes mellitus without complication 261833455 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 044031383 Disorder o f nervous system due to type 2 diabetes mellitus 991624193 [id number] Montana Foreman III, MD , [facility], OFFICE [address] [place] [address] 02/26/2014 09:23:19 02/26/2014 09:55:23 Benign essential hypertension 6917700 continue to work on diet ,exercisea nd lowering salt intake as discussed Mixed hyperlipidemia 949587130 continue to work on diet and exercise as discussed Disorder o f nervous system due to type 2 diabetes mellitus 360508336 Foot neuropathy Neoplasm of skin 629630417 [id number] Montana Foreman III, MD , [facility], OFFICE [address] [place] [address] 01/05/2015 10:38:43 01/05/2015 10:57:32 Benign essential hypertension 0928333 continue to work on diet, exercise, and lowering salt intake as discussed Mixed hyperlipidemia 110406794 continue to work on diet and exercise as discussed Cholestero l is at goal Type 2 nora betes mellitus without complication 758175493 Actinic keratosis 446597943 Right shoulder x 2 [id number] PABLO Sommers, [facility], OFFICE [address] [place] [address] 02/23/2015 09:02:42 02/23/2015 09:28:05 Paronychia of toe 333899986 Diabetes mellitus 55130530 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 115248972 [id number] PABLO Sommers, [facility], OFFICE [address] [place] [address] 02/25/2015 09:28:28 02/25/2015 10:08:25 Paronychia of toe 632569009 Diabetes mellitus 37808423 Cellulitis of toe 84729855 [id number] PABLO Sommers, [facility], OFFICE [address] [place] [address] 02/26/2015 09:13:35 02/26/2015 09:42:40 Cellulitis of toe 98200941 Paronychia of toe 326250134 Diabetes mellitus 74513141 [id number] PABLO Sommers, [facility], OFFICE [address] [place] [address] 03/01/2015 09:16:53 03/01/2015 09:27:47 Cellulitis of toe 09576607 resolving will finish remaining 3 days of Bactrim DS bid. Again reviewed sxs of infection and will rto if they reoccur. [id number] PABLO Sommers, [facility], OFFICE [address] [place] [address] 06/24/2015 08:26:01 06/24/2015 09:06:08 Type 2 diabetes mellitus without complication 742506425 E11.9 A1C not at goal of <7.0 Up significan tly from December will increase metformin ER to 1000 mg bid will decrease ETOH, sugar drinks repeat labs 3 months- OV Mixed hyperlipidemia 267 138684 E78.2 Trigs are not at goal Will c/w omega fish oil 4000 mg qd will decrease ETOH and sugary drinks Continue to work on diet and exercise as discussed repeat labs 3 months and f/u OV Benign ess ential hypertension 7566731 I10 Blood pressure at goal . continue to work on diet, exercise, and lowering salt intake as discussed Adult heal th examination 520308947 Z00.00 see Risk Assessment and Lifestyle Change Counseling section above HM: Labs UTD Declines flu shot Counseling 325299644 Z71 .9 Alcohol dependence 07023 003 F10.20 discussed reducing ETOH intake discussed impact on blood sugar and triglyceri vi Pain of sh oulder region 78751877 M25.512 ? impingemen t will try 3-5 days of NSAIDs, alternate heat and ice will call if he reconsider PT Neuropathy due to diabetes mellitus 619151760 E11.40 stable discussed importance of checking feet regularly. [id number] Anali Yanez D.O. , [facility], OFFICE [address] [place] [address] 12/01/2015 09:44:27 12/01/2015 10:33:57 Type 2 diabetes mellitus without complication 480697640 E11.9 A1C at goal of <7.0 at 5.0 will c/w increase metformin 1000 mg bid c/w glyburide 2.5 mg qd discussed working on diet, ETOH reduction will repeat in 3 months to check for stability OV 6 months Mixed hyperlipidemia 267 325714 E78.2 Trigs much improved down from 699 to 158! great job Will c/w omega fish oil 4000 mg qd will decrease ETOH and sugary drinks Continue to work on diet and exercise as discussed repeat labs 3 months and f/u OV 6 months Benign ess ential hypertension 8622098 I10 Blood pressure at goal . 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 Adjustment disorder 1722 6007 F43.23 dealing with loss of 32 brother (OD) as well taking care of Mom [id number] Jarocho Browne MD , [facility], [address] [place] [address] 01/25/2016 09:18:19 01/25/2016 10:06:23 Infection of toe 502486258 L08.9 in diabetic with neuropathy i informed him that this was a serious infection for him and that we must be observant augmentin for 12 days.he will rto for non response after 48 hrs, or for progressio n or onset fever Neuropathy due to diabetes mellitus 800806608 E11.40 [id number] Anali Yanez D.O. , [facility], OFFICE [address] [place] [address] 06/28/2016 09:35:15 06/29/2016 09:39:46 Benign essential hypertension 2310633 I10 BP at goalc/w meds Neuropathy due to diabetes mellitus 826172511 E11.40 abn but stable discussed importance of checking feet regularly. Mixed hyperlipidemia 267 190002 E78.2 Trigs up from 158 to 388will c/w fish oildiscuss ed importance of ETOH reduction Type 2 nora betes mellitus without complication 534659777 E11.9 A1C very good at 5.7will get meter d/t ? of low blood sugarsIf getting lows discussed potentiall y reducing glyburideR F on med today Adult heal th examination 413115437 Z00.00 see Risk Assessment and Lifestyle Change Counseling section aboveHM: declines flu shot Counseling 231685202 Z71 .9 Alcohol dependence 04364 003 F10.20 discussed reducing ETOH intake- has not reduced discussed impact on blood sugar and triglyceri vi lhoping new job (no longer at [employer]) will help reduce [id number] Anali Yanez D.O. , [facility], OFFICE [address] [place] [address] 10/10/2016 08:00:49 10/12/2016 15:46:30 Injury of ribs 754066748 S29.9XXA Alcohol dependence 26728 003 F10.20 Type 2 nora betes mellitus without complication 360576929 E11.9 [id number] Anali Yanez D.O. [facility], OFFICE [address] [place] [address] 01/09/2017 07:57:33 01/10/2017 09:04:13 Benign essential hypertension 6784684 I10 Blood pressure at goal of <140/90c/w lisinopril BMP utd wnl Mixed hyperlipidemia 267 364774 E78.2 LDL at goal of <100c/w simvastati ncontinue to work on diet and exercise as discussed Type 2 nora betes mellitus without complication 605189289 E11.9 A1C 5.0 with Goal <6.5doing well with more activity d/t jobno med changesmay consider reducing if c/w low A1Crto 6 months for PHA Neuropathy due to diabetes mellitus 966435802 E11.40 abn but stable discussed importance of checking feet regularly. 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 to d/c glyburide and CUT DOWN metformin to 1000 mg once dailywill recheck HbA1c in Jun [id number] Anali SEARS, [facility], OFFICE [address] [place] [address] 01/15/2018 10:28:34 01/15/2018 11:35:54 Type 2 diabetes mellitus without complication 294799318 E11.9 A1C 5.9 with Goal <6.5doing well with more activity d/t jobno med changesmay consider reducing if c/w low A1Crto 6 months for PHA Alcohol dependence 52215 003 F10.20 stable with slight decrease per pt3-4 drinks 5 x week Benign ess ential hypertension 9766832 I10 Blood pressure at goal of <140/90c/w lisinopril BMP utd wnl Neuropathy due to diabetes mellitus 658762342 E11.40 abn but stable discussed importance of checking feet regularly. Mixed hyperlipidemia 267 029070 E78.2 LDL at goal of <100c/w simvastati ncontinue to work on diet and exercise as discussed Active or passive immunization 350608796 Z23 Diabetic foot ulcer 3710 34731 E11.40 R foot 2nd toe with cellulitis will get xrayget bactrim DS bid x [address] Wang for wound care. [id number] Mitesh Cheng DPM Podiatry, [address] [place] [address] 01/30/2018 11:02:26 01/30/2018 14:26:05 Acute osteomyelitis of phalanx of toe 911651220 M86.179 Reviewed right foot xray notable for [...] post op day 0. Pain in toe 299103180 M7 9.674 Ulcer of toe 636195001 L 97.925 [id number] Anali Yanez D.O. , [facility], OFFICE [address] [place] [address] 01/30/2018 15:50:18 01/30/2018 18:24:23 Pre-surgery evaluation 773611885 Z01.818 ekg wnlThe patient is a low risk for perioperat berta cardiovasc ular complicati ons, and may proceed with surgery. Acute oste omyelitis of phalanx of toe 950050523 M86.179 R 2nd toe Benign ess ential hypertension 8689140 I10 Blood pressure at goal of <140/90c/w lisinopril BMP utd wnl Alcohol dependence 25076 003 F10.20 stable with slight decrease per pt3-4 drinks 5 x week [id number] Mitesh Cheng DPM Podiatry, [address] [address] 02/12/2018 10:26:41 02/12/2018 11:12:01 Acute osteomyelitis of phalanx of toe 633218759 M86.179 Reviewed right foot xray notable for erosions of distal aspect of distal phalanx s/p partial amputation of toe. Rx for augmentin sent to pharmacy for 10 day course. Dressing changed. Pain in toe 866220420 M7 9.674 will remove sutures in 1 week. [id number] Mitesh Cheng DPM Podiatry, [address] [address] 02/19/2018 08:51:40 02/19/2018 09:26:45 Acute osteomyelitis of phalanx of toe 211289512 M86.179 Reviewed right foot xray notable for erosions of distal aspect of distal phalanx s/p partial amputation of toe. Pain in toe 310309843 M7 9.674 Sutures removed today. Scab overlying incision removed and site bleeding area identified . Area was cleansed then new dressing was applied to the toe. Pt instructed to take abx to completion . Also to keep toe covered with gauze after daily dressing changes until area is healed up. RTC 2 weeks to re-eval. Ok to return to work tomorrow. [id number] Mitesh Cheng DPM Podiatry, [address] [address] 03/05/2018 08:38:01 03/07/2018 14:19:36 Acute osteomyelitis of phalanx of toe 504127073 M86.179 Reviewed right foot xray notable for erosions of distal aspect of distal phalanx s/p partial amputation of toe. Resolved, patient with clean margins. Pain in toe 639672784 M7 9.674 Right 2nd toe wound all healed up now. Pt ok to get toe wet. Counceled on need for diabetic shoes with custom insoles, as he will need wide width and extra depth shoe to accomodate toe deformitie s. RTC 3 months to re-eval. [id number] Mitesh Cheng DPM Podiatry, [address] [address] 05/07/2018 09:13:31 05/07/2018 09:50:36 Pain in toe 144694733 M79.674 Counseled on need for diabetic shoes with custom insoles, as he will need wide width and extra depth shoe to accomodate toe deformitie s. Orthotics agreement form was completed and signed today. Pt given a copy. We will check with her insurance about coverage. Patient is aware of cost. Cellulitis of toe 929971 04 L03.031 Ulcer of toe 219080513 L 97.509 Verbal consent was obtained. Right [...] in counseling and coordinati on of care. [id number] Mitesh Cheng DPM Podiatry, [address] [address] 05/21/2018 08:45:10 05/21/2018 16:20:21 Pain in toe 596132529 M79.674 Counseled on need for diabetic shoes [...] The scanned images were then sent to [facility] orthotics lab for fabricatio n. Specificat ions: full length, 45 jeff, flexible, cute wide, toe filler for right 2nd toe amputation .I spent 15 mins face to face with patient, more 50% spent in counseling and coordinati on of care. Cellulitis of toe 226403 04 L03.031 resolved Ulcer of toe 981884174 L 97.509 Verbal consent was obtained. Right [...] in counseling and coordinati on of care. [id number] Mitesh Cheng DPM Podiatry, [address] [address] 07/09/2018 09:09:03 07/10/2018 08:20:30 Pain in toe 126202391 M79.674 Pt was informed that breaking into fulltime wear of custom made functional foot orthotic devices should occur over a period of 10 to 14 days. On the day of pharmacy picking technician the orthotic devices, wear them for 1 [...] coordinati on of care. Cellulitis of toe 932503 04 L03.031 resolved Ulcer of toe 477371922 L 97.509 Verbal consent was obtained. Right 4th toe prepped and sterile instrument ation used to unroof blister draining serous drainage. Wound was dressed wtih betadine and dsd. Pt was given instructio ns to dress it accordingl y each day. Rx for abx sent to pharmacy. RTC 2 weeks. Not to get foot wet. [id number] Anali SEARS, [facility], OFFICE [address] [place] [address] 09/06/2018 14:25:20 09/06/2018 15:02:23 Adult health examination 450859162 Z00.00 see Risk Assessment and Lifestyle Change Counseling section aboveHM: labs utdcolonos copy due Counseling 083770592 Z71 .9 Depression screening 171 118153 Z13.89 1 out of 27depressi on screening tool administer ed, entered into emr, scored and discussed, time greater than 7.5 minutes Mixed hyperlipidemia 267 913761 E78.2 LDL at goal of <100c/w simvastati ncontinue to work on diet and exercise as discussed Benign ess ential hypertension 7008173 I10 BP at goal c/w lisinopril continue to work on diet, exercise, and lowering salt intake as discussed Type 2 nora betes mellitus without complication 814921763 E11.9 A1C 5.7 with Goal <6.5still high fasting bs at 157advised to reduce ETOH particular ly shots doing well with more activity d/t jobno med changesmay consider reducing if c/w low A1Crto 6 months for PHA Alcohol dependence 55009 003 F10.20 3-4 everyday after workis doing shotsadvis ed to reduce- pt agrees Neuropathy due to diabetes mellitus 399966011 E11.40 abn but stable discussed importance of checking feet regularly. Screening for malignant neoplasm of colon 527411438 Z12.11 Referral for a DIRECT booked colonoscop y. This patient is a healthy ASA Class 1 or 2 patient (only mild systemic disease), or a STABLE, well controlled insulin dependent diabetic. They do not have serious cardiac disease ie VT/angiopl asty within 1 year, symptomati c CHF; renal failure with CKD 4 or 5; take Coumadin, Plavix, Aggrenox, etc. Amputated toe 671473754 Z89.429 R 2nd toecheck feet daily [id number] Anali Yanez D.O. , [facility], OFFICE [address] [place] [address] 03/10/2019 15:51:01 03/10/2019 16:23:56 Mixed hyperlipidemia 293924916 E78.2 LDL at goal of <100c/w simvastati ncontinue to work on diet and exercise as discussed Screening for malignant neoplasm of colon 206349174 Z12.11 Referral for a [employer] booked colonoscop y. This patient is a healthy ASA Class 1 or 2 patient (only mild systemic disease), or a STABLE, well controlled insulin dependent diabetic. They do not have serious cardiac disease ie VT/angiopl asty within 1 year, symptomati c CHF; renal failure with CKD 4 or 5; take Coumadin, Plavix, Aggrenox, etc. Neuropathy due to diabetes mellitus 329160035 E11.40 abn but stable discussed importance of checking feet regularly. no open toe shoesneed to protect feet Amputated toe 305333325 Z89.429 R 2nd toecheck feet daily Benign ess ential hypertension 0911405 I10 BP at goal c/w lisinopril continue to work on diet, exercise, and lowering salt intake as discussed Disorder o f nervous system due to type 2 diabetes mellitus 782951937 E11.49 DM is lfijrlp3v 5.8 which is great- at goaldiscus sed importance of foot carealread y had 1 amputation injury to L great toe- no open toe shoes Obesity 601689877 E66.9 BMI 30.5c/w low fat, low carb diet c/w regular activity Injury of toe 823587247 S99.922A likely paronychia of L great toeInterdi git is red, swollen with some warmthno painhx of osteomyeli tis with amputation xray todaystart keflex 500 mg tid x 7 days. Cramp in l ower limb associated with sleep 3119368107 92289 G47.62 advised increasing potassium with banana, sweet potatoeske ep hydrated with electrolyt estry diet tonic prior to bed [id number] Nikole Pandya . MD SEARS, [facility], [address] [place] [address] 10/28/2019 08:30:56 10/28/2019 15:14:19 Low back pain 810759136 M54.5 Low back strain, no alarming symptoms. Will treat with ice, muscle relaxers and NSAIDs. Do not take ibuprofen with meloxicam. Call us with any new neurologic symptoms. 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 [id number] Anali SEARS, [facility], [address] [place] [address] 05/13/2020 10:57:05 05/14/2020 11:47:45 Adult health examination 096175409 Z00.00 see Risk Assessment and Lifestyle Change Counseling section aboveHM: labs utdcolonos copy due Counseling 928792350 Z71 .9 including cardiovasc ular risk reduction counseling Depression screening 171 125662 Z13.89 0 out of 27 phq 9mood is gooddepres andra screening tool administer ed, entered into emr, scored and discussed, time greater than 7.5 minutes Screening for alcohol abuse 084310884 Z13.39 + auditwill work on decreasein g Amputated toe 781239562 Z89.429 R 2nd toecheck feet daily Type 2 nora betes mellitus without complication 405486159 E11.9 A1C 6.3 up from 5.8 but at Goal <6.5advise d to reduce ETOH particular ly shots doing well with more activity d/t jobno med changesrto 6 months for MM Alcohol dependence 64097 003 F10.20 Audit 43-4 everyday after work - drinking more with covid and less to do at nightis doing shotsadvis ed to reduce- pt agrees Mixed hyperlipidemia 267 727552 E78.2 Cholestero l is at goal LDL is 46Trigs are high at 281- will work on diet and less etoh Continue to work on diet and exercise as discussed Essential hypertension 74655804 I10 cannot check bpwill have him come in for bp checkif not at goal of < 130/80 will increase lisinopril to 20 mg [id number] Anali Furcolo D.OXu , [facility], OFFICE [address] [place] [address] 05/27/2020 09:04:01 05/28/2020 15:26:35 [id number] Anali Furcolo D.O. , [facility], OFFICE [address] [place] [address] 10/28/2020 07:51:21 11/19/2020 16:22:56 Essential hypertension 34776984 I10 cannot check bpwill have him come in for bp checkif not at goal of < 130/80 will increase lisinopril to 20 mg Adult heal th examination 852131363 Z00.00 see Risk Assessment and Lifestyle Change Counseling section above HM: labs utd colonoscop y due Counseling 342071031 Z71 .9 including cardiovasc ular risk reduction counseling Screening for alcohol abuse 689426834 Z13.39 + auditwill work on decreasein g Mixed hyperlipidemia 267 242415 E78.2 Cholestero l is at goal LDL is 50 Trigs are high at 472- will work on diet and less etoh Continue to work on diet and exercise as discussed Amputated toe 445978178 Z89.429 R 2nd toecheck feet daily Type 2 nora betes mellitus without complication 613088883 E11.9 A1C 6.1 at Goal <6.5 advised to reduce ETOH doing well with more activity d/t job no med changes rto 6 months for MM Alcohol dependence 94832 003 F10.20 Audit 7 more with pandemic 3-4 everyday after work - drinking more with covid and less to do at night is doing shots advised to reduce- pt agrees Neuropathy due to diabetes mellitus 832163969 E11.40 abn but stable discussed importance of checking feet regularly. no open toe shoesneed to protect feet [id number] Anali Ellis.Matt , [facility], OFFICE [address] [place] [address] 11/18/2020 08:16:03 11/19/2020 16:14:08 [id number] Mynor Saab MD [facility], [facility] [address] [place] [address] 11/26/2020 06:44:42 11/26/2020 12:47:20 [id number] Anali Yanez D.O. , [facility], OFFICE [address] [place] [address] 06/03/2021 14:03:53 06/03/2021 14:47:31 Low back pain 392122784 M54.50 acute low back pain x 4 hoursNo Red FlagsCan use heat/ice to see if its helpfulMot rin for pain as neededTria l muscle relaxants for spasmsAdvi sed if no improvemen t over the next couple of weeks to f/u for PT referral Benign ess ential hypertension 2964901 I10 BP at goalBP goal < 130/80labs up to date [id number] Jarocho Browne MD , [facility], OFFICE [address] [place] [address] 06/13/2021 08:59:47 06/13/2021 09:45:05 Rib pain 628537685 R07.81 fall to a raised corner of a deck yesterdayn ow with positional muscular pain Left Ant chest wall and axilla. wincingly tender rfsg8iy rib mid axillary line although no ecchymosis or wound is visibleL CTA he has experience d rib injuries before, so understand s duration of activity limiting pain with leftarm and truncal movementsr ec ibuprofen' image fo rproignost ics [id number] Anali Ellis.Matt [facility], OFFICE [address] [place] [address] 11/03/2021 08:30:54 11/03/2021 09:02:37 Adult health examination 928023314 Z00.00 see Risk Assessment and Lifestyle Change Counseling section above HM: labs utd colonoscop y 11/26/2020 W/ 5 YR REPEATEYE EXAM 10/23/2020- WILL SCHEDULE Counseling 582073994 Z71 .9 including cardioascu lar risk reduction counseling Depression screening 171 230468 Z13.31 neg phq 9depressio n screening tool administer ed, entered into emr, scored and discussed, time greater than 7.5 minutes Screening for alcohol abuse 776371980 Z13.39 + auditwill work on decreasein g Amputated toe 209781436 Z89.429 R 2nd toecheck feet daily Alcohol dependence 92831 003 F10.20 Audit 7 more with pandemic and loss of dog 3-4 2x week and then on weekends advised to reduce- pt agrees Essential hypertension 35157287 I10 Bp not at goal of < 130/80 but just aboveno med changes Neuropathy due to diabetes mellitus 118018882 E11.40 A1C 6,4- sugars stablec/w metformin 1500 mg qdabn but stable discussed importance of checking feet regularly. no open toe shoesneed to protect feet Mixed hyperlipidemia 267 016431 E78.2 Cholestero l is at goal LDL is 45 Trigs are better 222 Continue to work on diet and exercise as discussed Obesity 391197799 E66.9 BMI 30.6keep low fat, low carb dietc/w regular activity [id number] Anali SEARS, [facility], OFFICE [address] [place] [address] 05/11/2022 09:14:18 05/11/2022 09:53:17 Essential hypertension 97202327 I10 Bp at goal of < 130/80no med changesf/u 3 mos Mixed hyperlipidemia 267 231045 E78.2 Cholestero l is at goal LDL is 45 Trigs 371- will work on better diet Continue to work on diet and exercise as discussed Amputated toe 330779484 Z89.429 R 2nd toecheck feet daily Obesity 269687006 E66.9 BMI 30.6keep low fat, low carb dietc/w regular activity Alcohol dependence 56038 003 F10.20 more with pandemic and loss of dog but had returned to baseline 3-4 2x week Neuropathy due to diabetes mellitus 879431258 E11.40 A1C 6.6 - slight increase from previous but overall sugars stablec/w metformin 1500 mg qdabn but stable discussed importance of checking feet regularly. 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 Genesis Coats [id number] Anali Yanez D.O. , [facility], OFFICE [address] [place] [address] 11/10/2022 08:27:54 11/10/2022 09:18:34 Adult health examination 467580775 Z00.00 see Risk Assessment and Lifestyle Change Counseling section above HM: labs utd colonoscop y 11/26/2020 W/ 5 YR REPEATEYE EXAM 10/23/2020- WILL SCHEDULE Depression screening 171 853234 Z13.31 depression screening tool administer edneg phq 9 Screening for alcohol abuse 745443945 Z13.39 Alcohol use screening tool administer edaudit 55 days a week- more on weekends. 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 no open toe shoesneed to protect feet Primary er ectile dysfunction 196470343 N52.9 Disorder o f nervous system due to type 2 diabetes mellitus 094773838 E11.49 A1C 6.4 -c/w metformin 1500 mg qdfully abn foot exam but stable discussed importance of checking feet regularly. 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 570442846 E11.3299 mild OUutd on exam 04/2023fol lowed by Levy yan get exam notes Type 2 nora betes mellitus without complication 717430223 E11.9 A1C 6.5 at Goal <6.5 advised to reduce ETOH doing well with more activity d/t job no med changes rto 6 months for MM Obesity 575852474 E66.9 BMI 30.4keep low fat, low carb dietc/w regular activity Alcohol dependence 77502 003 F10.20 continues with etoh 3-4 days week more on weekends d iscussed impact on EDencourag ed reduction Benign ess ential hypertension 3799828 I10 BP at goal c/w lisinopril continue to work on diet, exercise, and lowering salt intake as discussed Neuropathy due to diabetes mellitus 538973717 E11.40 A1C 6.5c/w metformin 2000 mg qdfully abn foot exam but stable discussed importance of checking feet regularly. no open toe shoesneed to protect feet Mixed hyperlipidemia 267 829915 E78.2 Cholestero l is at goal at 30c/w statinCont inue to work on diet and exercise as discussed Adult heal th examination 369015650 Z00.00 see Risk Assessment and Lifestyle Change Counseling section above HM: labs utd colonoscop y 11/26/2020 W/ 5 YR REPEATEYE EXAM 04/2023- WILL SCHEDULE declines psa Depression screening 171 527678 Z13.31 depression screening tool administer edneg phq 9mood is good Screening for alcohol abuse 049175117 Z13.39 Alcohol use screening tool administer edaudit 8etoh dependence discussed impact on sugars, kidney/braden er fx- understand s Screening for malignant neoplasm of prostate 458581153 Z12.5 If you have a prostate, the [...] expectancy .declines testing this year Rib pain 464364947 R07.8 1 injury 2 weeks agorf of ibuprofen Disorder o f nervous system due to type 2 diabetes mellitus 599638050 E11.49 A1C 6.5c/w metformin 1500 mg qdfully abn foot exam but stable discussed importance of checking feet regularly. 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 328845769 E11.3299 mild OUutd on exam 06/2023fol lowed by Thaddeusr Type 2 nora betes mellitus without complication 525924824 E11.9 A1C 6.9 at Goal <7.0 advised to reduce ETOH doing well with more activity d/t job no med changes rto 6 months for MM Obesity 746984484 E66.9 BMI 30.4keep low fat, low carb dietc/w regular activity Alcohol dependence 84928 003 F10.20 etoh 4-5 x week few drinkswork ing on reducing weekday drinkingun derstands impact on blood sugar, liver Benign ess ential hypertension 1992816 I10 BP at goal c/w lisinopril continue to work on diet, exercise, and lowering salt intake as discussed Neuropathy due to diabetes mellitus 841457049 E11.40 A1C 6.9 up from 6.5is going to focus on diet, less weekday etohc/w metformin 2000 mg qdfully abn foot exam but stable discussed importance of checking feet regularly. no open toe shoesneed to protect feet Mixed hyperlipidemia 267 022097 E78.2 Cholestero l is at goal at 30c/w statinCont inue to work on diet and exercise as discussed Influenza vaccination declined 387651644 Z28.21 [id number] Jarocho Browne MD , [facility], OFFICE [address] [place] [address] [place] [address] 12/10/2024 09:12:18 12/10/2024 09:44:19 Adult health examination 974616672 Z00.00 see Risk Assessment and Lifestyle Change Counseling section above HM: labs utd colonoscop y 11/26/2020 W/ 5 YR REPEATEYE EXAM 08/2024- [employer] declines psa Depression screening 171 578059 Z13.31 depression screening tool administer edneg phq 9mood is good Screening for alcohol abuse 258641623 Z13.39 Alcohol use screening tool administer edaudit 7was drinking more with time off from work 2nd to surgery Immunization due 4610886 08 Z23 Tenosynovi tis of right radial styloid 7303616532 3175905 M65.4 s/p tendon release 10/2024 at [facility] vickie returned to work Amputated toe 802825164 Z89.429 R 2nd toecheck feet daily 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 no open toe shoesneed to protect feet Mixed hyperlipidemia 267 737935 E78.2 Cholestero l is at goal at 38c/w statinCont inue to work on diet and exercise as discussed Screening for malignant neoplasm of prostate 837798574 Z12.5 If you have a prostate, the [...] shorter life expectancy .declines testing this year Disorder o f nervous system due to type 2 diabetes mellitus 347277122 E11.49 A1C 6.8 down from 6.9focus on diet, less weekday etohc/w metformin 2000 mg qdfully abn foot exam but stable discussed importance of checking feet regularly. no open toe shoesneed to protect feet Benign ess ential hypertension 3742872 I10 BP at goal c/w lisinopril continue to work on diet, exercise, and lowering salt intake as discussed Health Concerns Section Related Observation LastModified by Organization Detai ls LastModified Time None Recorded Concern Status LastModified by Organization Details LastModified Time None Recorded Advance Directives Directive None Recorded Payers Encounter Date Sequence Insurance Name Policy Number Policy Padron Covered Member ID Padron Member ID Guarantor Name 05/10/2023 1 [facility] [employer] [id number] Timo Meng [id number] Timo Meng 11/02/2023 1 [facility] [employer] 33A Timo Meng [id number] Timo Meng 11/13/2023 1 [facility] [employer] 33A Timo Meng [id number] Timo Meng 05/15/2024 1 [facility] [employer] 33A Timo Meng [id number] Timo Meng 12/10/2024 1 [facility] [employer] 33A Timo Meng [id number] Timo Meng Notes Date Note Type Note Provider Name and Address Organization Details Recorded Time 3 text/html [facility] DiabetesReported bypatient.Review finger sticks:Fasting`150 [...] in exercise capacity saw dentist concern re: [id number] up from 6.4- has beenetoh 3-4 days a week - few after work Nikole Pandya. [address] [place] [address], [phone], [facility] 05/13/2023 15:47:09 4 text/html 10/30/2023 injury at [...] better than the ice. Junie Parekh MD [address] [place] [address], [phone], [facility] 11/02/2023 09:54:13 4 text/html Physical Exam/MaleReported bypatient.PHAPatient [...] identified barriers to care Context:Diabetes;Peripheral vascular disease (15782) Associated Symptoms:no muscle pain; no dyspnea; no [...] decline in exercise capacity Aydee Clarke NP [address] [place] [address], [phone], [facility] 11/13/2023 13:01:29 4 text/html [facility] DiabetesReported bypatient.Review [...] identified barriers to care Context:Diabetes;Peripheral vascular disease (89630) Associated Symptoms:no muscle pain; no dyspnea; no [...] keeping it to weekends Aydee Clarke NP [address] [place] [address], [phone], [facility] 05/15/2024 08:59:35 5 text/html Physical Exam/MaleReported bypatient.PHAPatient is here for [...] identified barriers to care Context:Diabetes;Peripheral vascular disease (09090) Associated Symptoms:no muscle pain; no dyspnea; no [...] No edema; No decline in exercise capacity Patient presents for follow-up of their hypertension. Updates from last visit: Home blood pressures: at goal Taking medications daily as prescribed: yes Side effects from medications: no Low salt diet: no Regular Exercise: yes Caffeine intake: yes Alcohol consumption: yes Tobacco use: no Daily stress level: min Denies any new shortness of breath, cough, dizziness, chest pain, nausea, vomiting, leg swelling or weakness. An independent historian contributed to the patient's information for this visit: no. Patient is able to manage his medications Patient presents for follow up of Diabetes. Diabetes is: controlled. Updates from last visit: Patient has the following concerns about their diabetes: Out of range blood sugars: no Medications are being taken as prescribed: yes Questions about medications: no Side effects from medications: no They have seen specialists:no Taking Aspirin: yes Taking Statin: yes Patient denies any new shortness of breath, chest pain, nausea, vomiting, diarrhea, skin infection, ulcers, dizziness, weakness. An independent historian contributed to this patient's information: no. Patient is able to manage his medications independently. Aydee Clarke NP [address] [place] [address], [phone], [facility] 12/10/2024 09:45:03
== END 2024-12-24 09:13 | disposition home or self-care (01) ==
LOC: HO.HOS 08:46
PROVIDERS: PCP Nurse Practitioner Adult Health; Visit Provider Orthopaedic Surgery
DX: M65.4 Radial styloid tenosynovitis [de Quervain] (principal)
CPT/HCPCS: 99024

== ENCOUNTER 2025-04-23 08:47 | Outpatient (REF) | payer BC, SELFPAY ==
--- OUTSIDE RECORDS SUMMARY | 2025-04-24 09:16 | XMS_ITS | Encounter Summary ---
Author Organization [facility] Address [address] [address] Phone Care Team Providers Care Blueprint Reader Name Role Phone Anali Yanez DO Primary Care Provider [phone] Orin Joshi NP Primary Care Provider [phone] Encounter Details Date Type Department Care Team (Late st Contact Info) Description 02/04/2018 Procedure Pass OR Admitting Dept - Virtual Department [address] [place] [address] Social History Tobacco Use Types Packs/Day Years [...] on filedocumented in this encounter Care Teams Blueprint Reader Relationship Specialty Start Date End Date Anali Yanez DO [address] [place] [address] PCP - General Internal Medicine 01/31/18 11/25/20 Orin Joshi NP [address] [place] [address] PCP - General 11/26/20 documented as of this encounter Additional Source Comments The information contained in this document represents components of the legal health record. It is not the complete legal health record.[facility]
--- OUTSIDE RECORDS SUMMARY | 2025-04-24 09:16 | XMS_ITS | Encounter Summary ---
Author Organization [facility] Address [address] Owned it [facility] [address] [place] [address] Phone Care Team Providers Care Area Representative Name Role Phone JobAnali bennett Blaze MENA Primary Care Provider [phone] Orin Joshi NP Primary Care Provider [phone] Encounter Details Date Type Department Care Team (Latest Contact Info) Description 11/23/2020 Transcribe Orders Virtual Department [address] [place] [address] Mynor Saab MD [address] [place] [id number] [email or web address] Pre-procedure lab exam (Primary Dx) Social History [...] Order (11/23/2020 1:55 PM EDT) COVID-19 Comment [id number] [facility] COVID Testing Status Sent to [facility] 11/23/2020 1:55 PM EDT 11/23/2020 4:51 PM EDT us Mynor Saab MD BODY FLUIDS AND STOOLS ORDERABLE S Edited Result - Final [facility] [address] [place] [address] documented in this encounter Visit Diagnoses Diagnosis Pre-procedure lab exam- Primary Pre-procedural laboratory examination documented in this encounter Care Teams Area Representative Relationship Specialty Start Date End Date Anali Yanez DO [address] [place] [address] PCP - General Internal Medicine 01/31/18 11/25/20 Orin Joshi NP [address] [place] [address] PCP - General 11/26/20 documented as of this encounter Additional Source Comments The information contained in this document represents components of the legal health record. It is not the complete legal health record.[facility]
--- OUTSIDE RECORDS SUMMARY | 2025-04-24 09:16 | XMS_ITS | Clinical Summary ---
Author Organization [facility] Address [address] [facility] [address] [place] [address] Phone Care Team Providers Care Sales Representative [employer] Name Role Phone Orin Joshi NP Primary Care Provider [phone] Allergies No known active allergies Medications simvastatin (ZOCOR) 20 MG tablet Take 20 mg by mouth nightly. Active metformin HCl (METFORMIN ORAL) Take 500 tablets by mouth 2 (two) times a day. Active lisinopril (PRINIVIL,ZESTR IL) 10 MG tablet Take 10 mg by mouth daily. Active omega 3-uyv-eip-fish oil 1,000 mg (120 mg-180 mg) Cap [...] 81 02/04/2018 1:15 PM EDT Temperature 36.7 C (98.1 F) 02/04/2018 2:00 PM EDT Respiratory Rate 22 02/04/2018 1:15 PM EDT [...] POTASSIUM LEVEL 1968 DEPRESSION SCREENING 1980 HEPATITIS C SCREENING 01/28/1986 HIV ONE-TIME SCREENING (18-6 5 YEARS) 01/28/1986 SMOKING STATUS SCREENING (On ce After 26 Yrs) 01/28/1994 COLOGUARD 01/28/2013 COLONOSCOPY 01/28/2013 COLORECTAL CANCER SCREENING 01/28/2013 FIT TEST 01/28/2013 FOBT 01/28/2013 SIGMOIDOSCOPY 01/28/2013 VIRTUAL COLONOSCOPY 01/28/2013 Adult Td,Tdap Booster 09/07/2016 09/07/2006 PNEUMOCOCCAL VACCINES (50+ years) (2 of 2 - PCV) 01/28/2018 06/09/2009 ZOSTER VACCINES (1 of 2) 01/28/2018 INFLUENZA VACCINE (#1) 2025 COVID-19 VACCINE (3 - 2024-2 6 season) 2025 11/11/2020, 10/21/2020 RSV VACCINE (1 - 1-dose 75+ series) 01/28/2043 HEPATITIS A VACCINES Aged Out No long er eligible based on patient's age to complete this topic HIB VACCINES Aged Out No longer eligi ble based on patient's age to complete this topic MENINGOCOCCAL VACCINES (ACWY) Aged Out No longer eligible based on patient's age to complete this topic MENINGOCOCCAL VACCINES (B) Aged Out N o longer eligible based on patient's age to complete this topic Medical Devices Not on file [place] [address] [place] [address] Care Teams Sales Representative Le[employer]s Relationship Specialty Start Date End Date Orin Joshi NP [address] [place] [address] PCP - General 11/26/20 Additional Source Comments The information contained in this document represents components of the legal health record. It is not the complete legal health record.[facility]
== END 2025-04-23 08:48 | disposition home or self-care (01) ==
LOC: HO.HOSX 08:47
PROVIDERS: Visit Provider Physician Assistant
DX: Z13.89 Encounter for screening for other disorder (principal)

== ENCOUNTER 2025-04-30 08:24 | Outpatient (REF) | payer BC, SELFPAY ==
--- NOTE | ~2025-04-30 | XR_ITS ---
EXAMINATION: XR KNEE, RIGHT CLINICAL INFORMATION: M25.569 - Pain in unspecified knee COMPARISON: None available. TECHNIQUE: Bilateral knees AP one view. Right knee 2 views. FINDINGS: Right knee: No acute fracture or dislocation. Joint spaces are maintained. Small marginal patellar spurs. No worrisome lytic or blastic lesion. Possible small suprapatellar joint fluid. Superior patellar insertional enthesopathy. No abnormal soft tissue calcification. Left knee: No acute findings in the single frontal radiograph. Joint spaces are maintained. XR/XR knee RT 3V IMPRESSION: Right knee: No evidence of acute osseous findings. Electronically signed by: Rogelio Rehman MD 04/30/2025 02:40 PM EDT
== END 2025-04-30 08:25 | disposition home or self-care (01) ==
LOC: HO.HOSX 08:24
PROVIDERS: Visit Provider Physician Assistant
DX: M17.11 Unilateral primary osteoarthritis, right knee (principal); Z79.899 Other long term (current) drug therapy
CPT/HCPCS: 20610; 73562; J0665; J1100; J2003

== ENCOUNTER 2025-04-30 13:23 | Outpatient (AMB) | payer BC, SELFPAY ==
--- NOTE | 2025-04-30 13:38 | A.OFFVIS_ITS ---
Vital Signs 04/30/25 13:44 Height 5 ft 7 in Weight 190 lb BMI 29.8 Handedness Right Intake Visit Reasons: New Prob - right knee pain Per zz Intake Note: Timo is a 55 year old male who presents today for a evaluation of his right knee pain. Patient reports ongoing pain for about a couple weeks. He states that his pain is on the medial aspect of the knee. Patient reports he uses a knee sleeve for support and compression. Patient was taking Ibuprofen 800 mg with relief and was wondering if he can get a fill on the mediation. Allergies No Known Allergies Allergy (Verified 12/24/24 08:54) HPI HPI New Prob - right knee pain Per zz: Details: Mr. Meng is a 55 year old male who presents today for a evaluation of his right knee pain. Patient reports ongoing pain for about a couple weeks. He states that his pain is on the medial aspect of the knee. Patient reports he uses a knee sleeve for support and compression. Patient was taking Ibuprofen 800 mg with relief and was wondering if he can get a fill on the mediation. PFSH Medical History Erectile dysfunction Hypercholesteremia Diabetes Hypertension Surgical History Hx of colonoscopy Social History Are you a primary manager medicare marketing to a significant other at home: No Do you presently have visiting nurse or other home services: No Patient Tobacco Use Status: Never used Tobacco Current occupational status: employed [place] [employer] [place] Review of Systems Const All systems reviewed & are unremarkable except as noted in HPI and below Physical Exam Vital Signs: BMI result Body Mass Index 29.8 Const General: cooperative, healthy appearing and no acute distress Resp Effort & Inspection: normal respiratory effort and able to speak in complete sentences Extrem Other: Right knee: Normal to inspection. No ecchymosis, erythema, or joint effusion. Tenderness to palpation along the medial joint line. Full knee extension and flexion. Negative Pradeep's. Negative anterior drawer. NVI. Psych Appearance: grossly normal Mental Status: mental status grossly normal Attitude: cooperative Office Procedures AMB Joint Injection/Aspiration Joint Injection/Aspiration Primary Site: right knee Prep: site was prepped using aseptic technique, ethochloride spray was applied and injection warnings given Injected: 40 mg of, with 3 mL of, 1% plain lidocaine, 0.25% bupivacaine, in the joint and decadron Approach Used: anterolateral Procedure: The patient tolerated the procedure well, but had some pain with the injection and there was some relief with the local anesthesia Coding 32107 - Large joint Procedure code (CPT) selection complete Assessment & Plan Assessment & Plan (1) Osteoarthritis of right knee: Code(s): M17.11 - Unilateral primary osteoarthritis, right knee Category: Medical Plan The patient was offered a cortisone injection in the right knee. The patient was explained the risks, benefits, and alternatives to receiving this injection. After receiving consent for the injection, the patient had the procedure done while in the office today. The patient tolerated the procedure well with no complications. Should the patient continue to have symptoms over the next 2-3 weeks he will contact our office in the next step would be to order an MRI to further evaluate the integrity of the right knee and surrounding structures. Otherwise, he will follow up PRN Follow-up will be PRN, or sooner if needed X-rays of the right knee which were obtained while in the office today and were reviewed by me, Graciela Coronado PA-C, revealed degenerative changes. Orders: Orders XR knee RT 3V Today M25.569 - Pain in unspecified knee Coding Level of Care Code New Pt Level 3 (37281) Diagnoses Osteoarthritis of right knee M17.11 CPT Codes Coding - Large joint: 40170 - Large joint ([id number])
[2025-04-30 13:44] VITALS: BMI 29.8
== END 2025-04-30 14:12 | disposition home or self-care (01) ==
LOC: HO.HOS 13:23
PROVIDERS: PCP Nurse Practitioner Adult Health; Visit Provider Physician Assistant
DX: M17.11 Unilateral primary osteoarthritis, right knee (principal)
CPT/HCPCS: 20610; 99213

== ENCOUNTER → 2025-04-30 13:31 | Outpatient (BNV) | payer BC, SELFPAY | PROVIDERS: Visit Provider Radiology Diagnostic Ultrasound | DX: M25.561 Pain in right knee (principal) | CPT/HCPCS: 73562 ==

== ENCOUNTER 2025-06-10 07:53 | Outpatient (AMB) | payer BC, SELFPAY ==
--- NOTE | 2025-06-10 08:05 | MHC.OFFVIS ---
Vital Signs 06/10/25 08:06 Height 5 ft 7 in Weight 190 lb BMI 29.8 Intake Visit Reasons: Diabetic Foot Exam/ Right foot pain Intake Note: Timo is a 55 year old male who presents today as a new patient for a diabetic foot evaluation. Patient is currently unaware of his glucose levels and he believes his last known A1c was 6.3%. He experiences numbness and tingling in his feet without burning. 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 Patient main concerns are in regards to his right hallux and left 2nd toe. Allergies No Known Allergies Allergy (Verified 06/10/25 08:14) HPI Comments Details: The patient is a 55-year-old male with a past medical history as seen below presenting for diabetic foot exam. The patient reports experiencing numbness and burning sensations in his feet, which are exacerbated by his occupation, requiring prolonged walking. He has not been regularly monitoring his blood glucose levels, but his last hemoglobin A1c was approximately 6.3%. The patient also reports a bone spur noted to the dorsal aspect of the right hallux causing irritation and inflammation in the toe. He has noticed a shift in his toes consistent with hammertoes. The patient has a black discoloration on the second toenail, suspected to be a subungual hematoma from a previous injury. He denies any pain associated with this condition, and it has remained unchanged over the past ten months. He denies any other pedal concerns. He denies any current nausea, vomiting, fever, or chills. 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 Denies numbness in legs. - Musculoskeletal: Reports irritation and swelling in right hallux due to bone spur. Reports history of right 2nd toe amputation. - Dermatological: There is noted maceration between toes. Denies drainage or discharge. - Nail: Reports black discoloration on second toenail. Denies pain or worsening of condition. All systems reviewed & are unremarkable except as noted in HPI and below Physical Exam Vital Signs: BMI result Body Mass Index 29.8 Extrem Other: Bilateral lower extremity focused physical exam: Derm: Scabbing noted to the dorsal aspect of the right hallux in the area of the palpable bone spur. Subungual hematoma noted to the left 2nd toe nail. Interdigital maceration noted to web spaces 3 and 4 bilaterally. Toenails noted to be of normal length. No open lesions abrasions or wounds noted. No active purulence, drainage, or bleeding noted. Skin supple and turgor within normal limits. No clinical signs of infection. No ecchymosis or discoloration noted. Vascular: DP/PT pulses palpable. Capillary refill time less than 3 seconds. Temperature gradient warm to warm. Pedal hair diminished. No varicosities noted. Minimal edema noted to the right hallux. Neuro: Protective sensation is grossly intact to light touch but slightly diminished to monofilament testing. MSK: Mild discomfort noted to the Palpable bony prominence of the right hallux. No pain on palpation to the left 2nd toe in the area of the nail. Noted right 2nd toe amputation stump to be healed. Hammertoe deformities noted. Bunion deformities noted. Range of motion of the forefoot slightly diminished. Range of motion of the hindfoot and ankles within normal limits. Minimally antalgic gait noted unassisted. Office Procedures AMB Debridement/Avulsion Podia Details: Applied Betadine wet-to-dry to the webspaces 3 and 4 bilaterally due to maceration. Procedure code (CPT) selection complete Diabetic Foot Exam G9226 - Diabetic Foot Exam Office Meds povidone-iodine 10 % topical swab Performing Provider: Francoise Knight DPM Performing Location[place] [facility] Administered by: Francoise Knight DPM on 06/11/25 07:48 Dose Route Admin Location Dispensed Lot Number Expiration Date [facility] Real Property Evaluator 1 appl topical 1 appl [id number] [employer]. Results Reviewed Results Reviewed: Patient reports A1c to be approximately 6.3%. Ordered right foot weightbearing three-view x-rays to be performed prior to next visit. Assessment & Plan Assessment & Plan (1) Immersion foot: Code(s): T69.029A - Immersion foot, unspecified foot, initial encounter Category: Medical Qualifiers: Encounter type: initial encounter Laterality: unspecified laterality Qualified Code(s): T69.029A - Immersion foot, unspecified foot, initial encounter (2) Diabetes mellitus type 2 with complications: Code(s): E11.8 - Type 2 diabetes mellitus with unspecified complications Category: Medical (3) Diabetic neuropathy: Code(s): E11.40 - Type 2 diabetes mellitus with diabetic neuropathy, unspecified Category: Medical Qualifiers: Diabetes mellitus type: type 2 Diabetes mellitus complication detail: diabetic polyneuropathy Qualified Code(s): E11.42 - Type 2 diabetes mellitus with diabetic polyneuropathy (4) Hammertoes of both feet: Code(s): M20.41 - Other hammer toe(s) (acquired), right foot; M20.42 - Other hammer toe(s) (acquired), left foot Category: Medical (5) Right foot pain: Code(s): M79.671 - Pain in right foot Category: Medical Plan Patient was informed and verbally consented to the use of an ambient scribe for clinic note documentation during this visit. Educated the patient on diabetes in the affects of the lower extremities. I discussed with the patient the management of his peripheral neuropathy, emphasizing the importance of blood sugar control to prevent further nerve damage. We reviewed the potential need for x-rays to evaluate the bone spur and discussed the use of diabetic shoes and inserts to provide support and alleviate symptoms. I explained the use of betadine swabs to manage maceration between the toes and the option of nail removal for the subungual hematoma if it does not improve. - Prescribed diabetic shoes and inserts to alleviate pressure and provide support. - Ordered x-rays of the right foot to be performed prior to the next visit. - Advise use of betadine swabs between toes to prevent maceration and keep the area dry. Applied Betadine wet-to-dry to web spaces 3 and 4 bilaterally. - Monitor the subungual hematoma on the second toenail; consider nail removal if no improvement is observed at next appointment. - Advised patient to wear supportive shoe gear and to avoid barefoot walking. - Recommended routine nail care due to diabetes and diabetic neuropathy. RTC in 6 weeks. Orders: Orders XR foot RT min 3V 06/10/25 M20.41 - Other hammer toe(s) (acquired), right foot, M20.42 - Other hammer toe(s) (acquired), left foot, M79.671 - Pain in right foot AMB Diabetic Foot Exam 06/10/25 E11.40 - Type 2 diabetes mellitus with diabetic neuropathy, unspecified, E11.8 - Type 2 diabetes mellitus with unspecified complications AMB Debridement/Avulsion Podiatry 06/10/25 E11.42 - Type 2 diabetes mellitus with diabetic polyneuropathy, E11.8 - Type 2 diabetes mellitus with unspecified complications, M20.41 - Other hammer toe(s) (acquired), right foot, M20.42 - Other hammer toe(s) (acquired), left foot, M79.671 - Pain in right foot, T69.029A - Immersion foot, unspecified foot, initial encounter Medications: New povidone-iodine 10% 1 appl topical DAILY PRN 50 ea 0RF Interdigital maceration E11.40 - Type 2 diabetes mellitus with diabetic neuropathy, unspecified, E11.8 - Type 2 diabetes mellitus with unspecified complications, M20.41 - Other hammer toe(s) (acquired), right foot, M20.42 - Other hammer toe(s) (acquired), left foot, M79.671 - Pain in right foot, T69.029A - Immersion foot, unspecified foot, initial encounter [diabetic shoes and inserts] Please dispense 1 pair of shoes and 1-3 pairs of inserts 1 ea 0RF E11.40 - Type 2 diabetes mellitus with diabetic neuropathy, unspecified, E11.8 - Type 2 diabetes mellitus with unspecified complications, M20.41 - Other hammer toe(s) (acquired), right foot, M20.42 - Other hammer toe(s) (acquired), left foot, M79.671 - Pain in right foot Coding Level of Care Code New Pt Level 4 (32068) Diagnoses Immersion foot, unspecified laterality, initial encounter T69.029A Encounter type: initial encounter Laterality: unspecified laterality Diabetes mellitus type 2 with complications E11.8 Diabetic polyneuropathy associated with type 2 diabetes mellitus E11.42 Diabetes mellitus type: type 2 Diabetes mellitus complication detail: diabetic polyneuropathy Hammertoes of both feet M20.41; M20.42 Right foot pain M79.671 CPT Codes Diabetic Foot Exam - CPT: G9226 - Diabetic Foot Exam ([id number]) Time Spent (min) 48
[2025-06-10 08:06] VITALS: BMI 29.8
--- OUTSIDE RECORDS SUMMARY | 2025-06-10 15:27 | XMS_ITS | Clinical Summary ---
Author Organization [facility] Address [address] [employer] [facility] [address] [place] [address] Phone Care Team Providers Care Emt I/99 Name Role Phone Orin Joshi NP Primary Care Provider Allergies No known active allergies Medications simvastatin (ZOCOR) 20 MG tablet Take 20 mg by mouth nightly. Active metformin HCl (METFORMIN ORAL) Take 500 tablets by mouth 2 (two) times a day. Active lisinopril (PRINIVIL,ZESTR IL) 10 MG tablet Take 10 mg by mouth daily. Active omega 2-kox-ttk-fish oil 1,000 mg (120 mg-180 mg) Cap [...] ce After 26 Yrs) 01/28/1994 COLOGUARD 01/28/2013 FIT TEST 01/28/2013 FOBT 01/28/2013 SIGMOIDOSCOPY 01/28/2013 VIRTUAL COLONOSCOPY 01/28/2013 Adult Td,Tdap Booster 09/07/2016 09/07/2006 PNEUMOCOCCAL VACCINES (50+ years) (2 of 2 - PCV) 01/28/2018 06/09/2009 ZOSTER VACCINES (1 of 2) 01/28/2018 INFLUENZA VACCINE (#1) 2025 COVID-19 VACCINE (3 - 2024-2 6 season) 2025 11/11/2020, 10/21/2020 COLONOSCOPY 11/26/2025 01/02/2024 COLORECTAL CANCER SCREENING 11/26/2025 RSV VACCINE (1 - 1-dose 75+ series) [...] this topic Medical Devices Not on file Procedures Procedure Name Priority Date/Time Associated Diagnosis Comments COLONOSCOPY FOR RESULT ENTRY ONLY Routine 01/02/2024 from Last 3 Months or Most Recently Relevant to Health Maintenance Results * COLONOSCOPY FOR RESULT ENTRY ONLY (01/02/2024) Colonoscopy External Historical Provider MD HEALTH MAINTENANCE Final Result from Last 3 Months or Most Recently Relevant to Health Maintenance Insurance Care Teams Emt I/99 Relationship Specialty Start Date End Date Orin Joshi NP [address] [place] [phone] PCP - General 11/26/20 Additional Source Comments The information contained in this document represents components of the legal health record. It is not the complete legal health record.[facility]
--- OUTSIDE RECORDS SUMMARY | 2025-06-10 15:27 | XMS_ITS | Encounter Summary ---
Author Organization [facility] Address [address] [address] Phone Care Team Providers Care Fire Sprinkler Designer Name Role Phone Anali Ynaez DO Primary Care Provider [phone] Orin Joshi NP Primary Care Provider [phone] Encounter Details Date Type Department Care Team (Late st Contact Info) Description 02/04/2018 Procedure Pass OR Admitting Dept - Virtual Department [address] [place] [address] Social History Tobacco Use Types Packs/Day Years [...] on filedocumented in this encounter Care Teams Fire Sprinkler Designer Relationship Specialty Start Date End Date Anali Yanez DO [address] [place] [id number] PCP - General Internal Medicine 01/31/18 11/25/20 Orin Joshi NP [address] [place] [address] PCP - General 11/26/20 documented as of this encounter Additional Source Comments The information contained in this document represents components of the legal health record. It is not the complete legal health record.[facility]
--- OUTSIDE RECORDS SUMMARY | 2025-06-10 15:27 | XMS_ITS | Encounter Summary ---
Author Organization [facility] Address [address] [employer] [facility] [address] [place] [address] Phone Care Team Providers Care Assembler Rubber Footwear Name Role Phone JobAnali bennett Blaze MENA Primary Care Provider [phone] Orin Joshi NP Primary Care Provider [phone] Encounter Details Date Type Department Care Team (Latest Contact Info) Description 11/23/2020 Transcribe Orders Virtual Department [address] [place] [address] Mynor Saab MD [address] [place] [address] [email or web address] Pre-procedure lab exam (Primary Dx) Social History [...] Order (11/23/2020 1:55 PM EDT) COVID-19 Comment [id number] [facility] COVID Testing Status Sent to [facility] 11/23/2020 1:55 PM EDT 11/23/2020 4:51 PM EDT us Mynor Saab MD LAB GENERAL ORDERABLES Edited Re sult - Final [facility] [address] [place] [address] documented in this encounter Visit Diagnoses Diagnosis Pre-procedure lab exam- Primary Pre-procedural laboratory examination documented in this encounter Care Teams Assembler Rubber Footwear Relationship Specialty Start Date End Date Anali Yanez DO [address] [place] [phone] PCP - General Internal Medicine 01/31/18 11/25/20 Orin Joshi NP [address] [place] [address] PCP - General 11/26/20 documented as of this encounter Additional Source Comments The information contained in this document represents components of the legal health record. It is not the complete legal health record.[facility]
== END 2025-06-10 08:37 | disposition home or self-care (01) ==
LOC: HO.HPODS 07:53
PROVIDERS: PCP Nurse Practitioner Adult Health; Visit Provider Student in an Organized Health Care Education/Training Program
DX: E11.8 Type 2 diabetes mellitus with unspecified complications (principal); M79.671 Pain in right foot; M20.41 Other hammer toe(s) (acquired), right foot; M20.42 Other hammer toe(s) (acquired), left foot; E11.42 Type 2 diabetes mellitus with diabetic polyneuropathy; T69.029A Immersion foot, unspecified foot, initial encounter
CPT/HCPCS: 99204; G9226

== ENCOUNTER 2025-06-11 09:12 | Outpatient (REF) | payer BC, SELFPAY ==
--- NOTE | ~2025-06-11 | XR_ITS ---
EXAMINATION: XR FOOT, RIGHT CLINICAL INFORMATION: M20.41 - Other hammer toe(s) (acquired), right foot COMPARISON: None available. TECHNIQUE: AP, lateral, and oblique views of the right foot. FINDINGS: There is moderate irregular narrowing with subchondral sclerosis and marginal osteophytes involving the IP joint of the great toe. There is a bipartite lateral sesamoid of the great toe. There has been amputation through the neck of the proximal phalanx of the second digit. There is hammertoe deformity of the third, fourth, and fifth digits. There is a small plantar calcaneal spur. XR/XR foot RT min 3V IMPRESSION: Hammertoe third-fifth digits. Moderate to severe osteoarthritis of the IP joint of the great toe. Amputated neck region of the proximal phalanx of the second digit. Electronically signed by: Ignacio Menendez MD 06/11/2025 11:52 AM GABBIE
--- OUTSIDE RECORDS SUMMARY | 2025-06-11 11:55 | XMS_ITS | Clinical Summary ---
Author Organization [facility] Address [address] [employer] [place] [facility] [address] [place] [address] Phone Care Team Providers Care Tax Representative Name Role Phone Orin Joshi NP Primary Care Provider [phone] Allergies No known active allergies Medications simvastatin (ZOCOR) 20 MG tablet Take 20 mg by mouth nightly. Active metformin HCl (METFORMIN ORAL) Take 500 tablets by mouth 2 (two) times a day. Active lisinopril (PRINIVIL,ZESTR IL) 10 MG tablet Take 10 mg by mouth daily. Active omega 8-ikt-kqr-fish oil 1,000 mg (120 mg-180 mg) Cap [...] Relevant to Health Maintenance Insurance Care Teams Tax Representative Relationship Specialty Start Date End Date Orin Joshi NP [address] [place] [address] PCP - General 11/26/20 Additional Source Comments The information contained in this document represents components of the legal health record. It is not the complete legal health record.[facility]
--- OUTSIDE RECORDS SUMMARY | 2025-06-11 11:56 | XMS_ITS | Encounter Summary ---
Author Organization [facility] Address [address] [address] Phone Care Team Providers Care Appointment Specialist Name Role Phone Anali Yanez DO Primary Care Provider [phone] Orin Joshi NP Primary Care Provider [phone] Encounter Details Date Type Department Care Team (Late st Contact Info) Description 02/04/2018 Procedure Pass OR Admitting Dept - Virtual Department [address] [place] [address] Social History Tobacco Use Types Packs/Day Years [...] on filedocumented in this encounter Care Teams Appointment Specialist Relationship Specialty Start Date End Date Anali Yanez DO [address] [place] [phone] PCP - General Internal Medicine 01/31/18 11/25/20 Orin Joshi NP [address] [place] [address] PCP - General 11/26/20 documented as of this encounter Additional Source Comments The information contained in this document represents components of the legal health record. It is not the complete legal health record.[facility]
--- OUTSIDE RECORDS SUMMARY | 2025-06-11 11:56 | XMS_ITS | Encounter Summary ---
Author Organization [facility] Address [address] [employer] [facility] [address] [place] [address] Phone Care Team Providers Care Hardware Sales Assistant Name Role Phone JobAnali bennett Blaze MENA Primary Care Provider [phone] Orin Joshi NP Primary Care Provider [phone] Encounter Details Date Type Department Care Team (Latest Contact Info) Description 11/23/2020 Transcribe Orders Virtual Department [address] [place] [address] Mynor Saab MD [address] [place] [address] [email or web address] Pre-procedure lab exam (Primary Dx) Social History [...] Order (11/23/2020 1:55 PM EDT) COVID-19 Comment [id number] [facility] COVID Testing Status Sent to [facility] 11/23/2020 1:55 PM EDT 11/23/2020 4:51 PM EDT us Mynor Saab MD LAB GENERAL ORDERABLES Edited Re sult - Final [facility] [address] [place] [address] documented in this encounter Visit Diagnoses Diagnosis Pre-procedure lab exam- Primary Pre-procedural laboratory examination documented in this encounter Care Teams Hardware Sales Assistant Relationship Specialty Start Date End Date Anali Yanez DO [address] [place] [address] PCP - General Internal Medicine 01/31/18 11/25/20 Orin Joshi NP [address] [place] [address] PCP - General 11/26/20 documented as of this encounter Additional Source Comments The information contained in this document represents components of the legal health record. It is not the complete legal health record.[facility]
== END 2025-06-11 09:13 | disposition home or self-care (01) ==
LOC: HO.XRAY 09:12
PROVIDERS: PCP Nurse Practitioner Adult Health; Visit Provider Student in an Organized Health Care Education/Training Program
DX: M20.41 Other hammer toe(s) (acquired), right foot (principal); M20.42 Other hammer toe(s) (acquired), left foot
CPT/HCPCS: 73630

== ENCOUNTER → 2025-06-11 09:17 | Outpatient (BNV) | payer BC, SELFPAY | PROVIDERS: PCP Nurse Practitioner Adult Health; Visit Provider Radiology Diagnostic Radiology | DX: M19.071 Primary osteoarthritis, right ankle and foot (principal) | CPT/HCPCS: 73630 ==

== ENCOUNTER 2025-07-06 09:19 | Outpatient (AMB) | payer BC, SELFPAY ==
[2025-07-06 09:35] VITALS: BP 106/70; PULSE 108; TEMP 36.5; O2SAT 96; BMI 29.4
--- NOTE | 2025-07-06 09:35 | AM.OFFWIN_ITS ---
Intake Vital Signs 07/06/25 09:35 Height 5 ft 7 in Weight 188 lb BMI 29.4 BP 106/70 Blood Pressure Location Lt brachial Position Sitting Pulse 108 H Pulse Source Pulse Oximeter Temp 97.7 F Temp Source Oral Pulse Oximetry (%) 96 Oxygen Delivery Method Room Air Intake Visit Reasons: EP right should pain a nd cant lift rt arm Intake Note: pt presents with increasing pain to RT shoulder x2 wks Patient Tobacco Use Status: Never used Tobacco Allergies No Known Allergies Allergy (Verified 07/06/25 09:39) Medication List - Last Reconciled 07/06/25 by Isabelle Black NP acetaminophen 1,000 mg (2 x 500 mg) PO Q6H PRN [diabetic shoes and inserts Please dispense 1 pair of shoes and 1-3 pairs of in serts] ibuprofen 600 mg PO Q8H PRN 14 days lidocaine 5% 1 patch topical DAILY lisinopril mg PO DAILY metformin ER mg PO povidone-iodine 10% 1 appl topical DAILY PRN simvastatin mg PO tadalafil 5 mg PO DAILY 90 days tadalafil 20 mg PO ONCE PRN 30 days Do you need a note to return to daycare/school/sports/work: Yes HPI HPI Comments History of Present Illness Details 55-year-old male presents to the walk-in clinic with complaint of right shoulder pain for 1 week. Pain is worsened with range of motion, particularly lifting and reaching movements. Denies any known injury or trauma. 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 Denies numbness, tingling, weakness, neck pain, or radiation of pain. Denies fever, swelling, or redness. No prior history of shoulder injury reported. Has tried rest with minimal relief. 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 Erectile dysfunction Hypercholesteremia Diabetes Hypertension Surgical History Hx of colonoscopy Social History Are you a primary health care social worker to a significant other at home: No Do you presently have visiting nurse or other home services: No Patient Tobacco Use Status: Never used Tobacco Current occupational status: employed [place] [employer] [place] Review of Systems Const All systems reviewed & are unremarkable except as noted in HPI and below Physical Exam Vital Signs: Last Vital Signs Temp 97.7 F 07/06/25 09:35 Pulse 108 H 07/06/25 09:35 BP 106/70 07/06/25 09:35 Pulse Ox 96 07/06/25 09:35 Oxygen Delivery Method Room Air 07/06/25 09:35 BMI result Body Mass Index 29.4 Const General: no acute distress Nutritional Appearance: obese Orientation/consciousness: patient oriented x3 Neuro General: patient oriented x3, gait normal and moves all extremities Extrem Other: RIGHT SHOULDER: No visible deformity, swelling, erythema, or ecchymosis Tenderness to palpation over the anterior/lateral shoulder Decreased active ROM due to pain, especially with abduction and overhead movements Passive ROM mildly limited secondary to pain Strength 4/5 secondary to pain No crepitus noted. Sensation intact to light touch, distal pulses intact. Psych Speech and movement: Normal speech and movement present Assessment & Plan Assessment & Plan (1) Primary osteoarthritis, right shoulder: Code(s): M19.011 - Primary osteoarthritis, right shoulder Plan: Suspected rotator cuff tendinopathy vs shoulder impingement syndrome vs Osteoarthritis. Overuse injury related to repetitive occupational activity. Recommend rest and activity modification; avoid heavy lifting and repetitive overhead movements. NSAIDs (e.g., ibuprofen) as needed for pain and inflammation if no contraindications. Apply ice to affected area 15?20 minutes, 2?3 times daily. Initiate gentle levzu-ya-vpviom and stretching exercises as tolerated. F/U with PCP for possible referral to Ortho/Pain clinic. Medications: New lidocaine 5% leave on most painful area for up to 12 hrs 1 patch topical DAILY 30 ea 0RF M19.011 - Primary osteoarthritis, right shoulder acetaminophen 1,000 mg (2 x 500 mg) PO Q6H PRN 20 caps 0RF pain M19.011 - Primary osteoarthritis, right shoulder Coding Level of Care Code Est Pt Level 4 (33486) Diagnoses Primary osteoarthritis, right shoulder M19.011 Time Spent (min) 20
== END 2025-07-06 10:11 | disposition home or self-care (01) ==
PROVIDERS: PCP Nurse Practitioner Adult Health; Visit Provider Nurse Practitioner Family
DX: M19.011 Primary osteoarthritis, right shoulder (principal)